=== PATIENT | male | born 1935 | race Caucasian/White ===

== ENCOUNTER → 2016-04-26 | Outpatient (CLI) | payer BC ==
[~2016-04-26] MED LIST: ATV/1 PO; HYZ/50125 PO; METO50TA17 PO
[2016-04-26 10:35] LABS: ALT/SGPT 57 U/L (12-78); BLOOD UREA NITROGEN 22 mg/dl (7-18); BUN/CREATININE RATIO 14.6 (10-20); CARBON DIOXIDE 28 mmol/L (21-32); CHLORIDE 95 mmol/L (98-107); GLUCOSE 98 mg/dl (70-99); POTASSIUM 3.4 mmol/L (3.5-5.1); SODIUM 135 mmol/L (136-145)
[2016-04-26 10:38] LABS: ALB/GLOB RATIO 1.1 (0.9-2); ALKALINE PHOSPHATASE 89 U/L (45-117); AST/SGOT 45 U/L (15-37)
== END | disposition home or self-care (01) ==
LOC: C.LAB1850 09:16
PROVIDERS: ATTEND Internal Medicine
DX: R79.89 Other specified abnormal findings of blood chemistry (principal)

== ENCOUNTER → 2016-04-29 | Outpatient (CLI) | payer BC ==
[2016-04-29 14:45] LABS: BASO % 0.5 %; BASO ABS # 0.03 K/uL (0-0.2); COMPLETE YES; EOS % 2.2 %; IG% 0.3 %; LYMPH % 13.8 %; LYMPH ABS # 0.82 K/uL (1.2-3.4); MEAN CELL VOLUME 94.1 fL (80-100); MEAN CORPUSCULAR HEMOGLOBIN 34.9 pg (25-34); MEAN CORPUSCULAR HGB CONC 37.1 g/dl (32-36); MEAN PLATELET VOLUME 9.8 fL (7.4-10.4); MONO % 16.3 %; NEUT % 66.9 %; PLATELET COUNT 182 K/uL (130-400); RED BLOOD COUNT 4.04 M/uL (4.7-6.1); WHITE BLOOD COUNT 5.94 K/uL (4.8-10.8)
[2016-04-29 14:55] LABS: ALT/SGPT 76 U/L (12-78); AST/SGOT 53 U/L (15-37); BLOOD UREA NITROGEN 31 mg/dl (7-18); CALCIUM 8.9 mg/dl (8.5-10.1); CARBON DIOXIDE 26 mmol/L (21-32); CHLORIDE 92 mmol/L (98-107); GLUCOSE 85 mg/dl (70-99); POTASSIUM 3.4 mmol/L (3.5-5.1); SODIUM 134 mmol/L (136-145)
[2016-04-29 14:58] LABS: ALB/GLOB RATIO 1.2 (0.9-2); ALKALINE PHOSPHATASE 87 U/L (45-117)
== END | disposition home or self-care (01) ==
LOC: C.LAB1850 12:24
PROVIDERS: ATTEND Internal Medicine
DX: R79.89 Other specified abnormal findings of blood chemistry (principal)

== ENCOUNTER 2016-04-30 09:19 | Inpatient (IN) | payer BC, OTHER ==
[~2016-04-30] VITALS: Ht 177.8 cm; Wt 74.0 kg
[2016-04-30] MEDS ORDERED: HYZ/50125 PO (10:02)
[2016-04-30] MEDS ORDERED: METO50TA17 PO ×2 (10:02)
[2016-04-30] MEDS ORDERED: ATV/1 PO (10:02)
[2016-04-30] MEDS ORDERED: SODIUM CHLORIDE 0.9% 1000ML 1,000 ML IV STA (10:08)
[2016-04-30] MEDS ORDERED: SODIUM CHLORIDE 0.9% 1000ML 500 ML IV STA (10:08)
--- NOTE | 2016-04-30 10:24 | EMERGENCY ROOM VISIT NOTE ---
History Report prepared by Katlin: Aminah Valdez Under the Supervision of: Dr. Blade Portillo M.D. First contact with patient: 10:02 Chief Complaint: GI ASSESSMENT Stated Complaint: ACUTE KIDNEY DISEASE, LIVER PROBLEMS Nursing Triage Summary: "I was sent by my pcp for acute kidney disease. I had blood work done this week. have back pain over the past few days. I am also having liver problems. I have had trouble eating for the past 2 weeks now" History of Present Illness The patient is an 80 year old male who presents to the Emergency Room with complaints of persistent GI problems that began two weeks ago. He currently rates his discomfort as a 6/10 in severity. The patient states that two weeks ago he had a "digestive collapse." He states that he ate fish and drank wine one evening and after that he began feeling ill. The patient states that he was unsure if he had food poisoning or something else. He states that his ate the fish as well, but had no problems. The patient states that for the first 24 hours of his illness, he experienced significant abdominal pain. He states that he could not eat anything solid for several days. The patient states that he additionally had diarrhea, but states that the diarrhea subsided since he could not eat solid foods. He states that one week ago he began eating canned peaches, and states that yesterday he was able to successfully eat yogurt. The patient states that he had blood work ordered by his PCP which revealed an elevation in his Creatinine and Bilirubin. He states that he was instructed to come to the emergency department for further evaluation by his PCP due to these findings. The patient states that he feels thirsty today. He denies any fever, chills, or change in the color of his urine. Source of History: patient Onset: two weeks ago Position: other (global) Symptom Intensity: 6/10 Quality: other (GI problems) Timing: other (persistent) Associated Symptoms: + diarrhea, No chills, No fevers, No urinary symptoms Note: Associated Symptoms: unable to eat solid foods. Review of Systems See HPI for pertinent positives & negatives. A total of 10 systems reviewed and were otherwise negative. Past Medical & Surgical Medical Problems: (1) FRANK (acute kidney injury) (2) Bronchitis (3) Hypertension (4) Pneumonia Surgical Problems: (1) History of back surgery Family History Kidney disease Kidney stones Social History Smoking Status: Never Smoker Smokeless Tobacco Use: No Alcohol Use: occasionally Marital Status: Housing Status: lives with significant other Occupation Status: retired Current/Historical Medications Scheduled Hctz/Losartan (Hyzaar 12.5MG/50MG), 1 TAB PO BID Lorazepam (Ativan), 2 MG PO HS Metoprolol Tartrate (Metoprolol Tartrate), 50 MG PO QAM Metoprolol Tartrate (Metoprolol Tartrate), 25 MG PO QPM Allergies Coded Allergies: No Known Allergies (Unverified , 04/30/16) Physical Exam Vital Signs Date Time Temp Pulse Resp B/P Pulse Ox O2 Delivery O2 Flow Rate FiO2 04/30/16 12:01 55 18 122/58 99 Room Air 04/30/16 10:47 51 16 147/47 98 Room Air 04/30/16 09:39 50 04/30/16 09:36 100 Room Air 04/30/16 09:23 36.4 51 18 141/71 99 Physical Exam GENERAL: Patient is in no acute distress. HEENT: No acute trauma, normocephalic atraumatic, mucous membranes dry, no nasal congestion, no scleral icterus. NECK: No stridor, no adenopathy, no meningismus, trachea is midline. LUNGS: Clear to auscultation bilaterally, no wheeze, no rhonchi, breath sounds equal. HEART: Without murmurs gallops or rubs, regular rate and rhythm. ABDOMEN: Soft, nontender, bowel sounds positive, no hernias, no peritonitis. EXTREMITIES: No cyanosis or edema, full range of motion of all the joints without pain or difficulty, no signs for acute trauma. NEUROLOGIC: Oriented x 3, no acute motor or sensory deficits, no focal weakness. SKIN: No rash, no jaundice, no diaphoresis. Medical Decision & Procedures ER Provider Diagnostic Interpretation: CT results as stated below per my review and radiologist interpretation: ABDOMEN AND PELVIS CT WITHOUT CONTRAST CT DOSE: 293.72 mGy.cm HISTORY: Generalized abdominal pain. TECHNIQUE: Multiaxial CT images of the abdomen and pelvis were performed without contrast. COMPARISON STUDY: None. FINDINGS: The lung bases are clear. Fatty changes within the liver. The unenhanced gallbladder, pancreas, spleen, and adrenal glands are unremarkable. There is a 6 mm stone within the lower pole of the right kidney. No hydronephrosis. Normal left kidney. The bladder is unremarkable. Suboptimal evaluation for bowel pathology due to the lack of intravenous and oral contrast. However, there is no definite bowel wall thickening or obstruction. Normal appendix. Colonic diverticulosis. IMPRESSION: 1. No definite bowel wall thickening or obstruction. 2. Colonic diverticulosis. 3. Normal appendix. 4. Right-sided nephrolithiasis. No hydronephrosis. 5. Hepatic steatosis. Electronically signed by: Giacomo Coles M.D. 04/30/2016 10:49 AM Dictated Date/Time: 04/30/2016 10:43 AM Laboratory Results 04/30/16 09:40 Red Blood Count 4.11, Mean Corpuscular Volume 92.7, Mean Corpuscular Hemoglobin 35.0, Mean Corpuscular Hemoglobin Concent 37.8, Mean Platelet Volume 9.6, Neutrophils (%) (Auto) 64.6, Lymphocytes (%) (Auto) 17.1, Monocytes (%) (Auto) 14.7, Eosinophils (%) (Auto) 2.7, Basophils (%) (Auto) 0.7, Neutrophils # (Auto ) 3.77, Lymphocytes # (Auto) 1.00, Monocytes # (Auto) 0.86, Eosinophils # (Auto ) 0.16, Basophils # (Auto) 0.04 Test 04/30/16 09:40 04/30/16 12:15 White Blood Count 5.84 K/uL (4.8-10.8) Red Blood Count 4.11 M/uL (4.7-6.1) Hemoglobin 14.4 g/dL (14.0-18.0) Hematocrit 38.1 % (42-52) Mean Corpuscular Volume 92.7 fL (80-100) Mean Corpuscular Hemoglobin 35.0 pg (25-34) Mean Corpuscular Hemoglobin Concent 37.8 g/dl (32-36) Platelet Count 173 K/uL (130-400) Mean Platelet Volume 9.6 fL (7.4-10.4) Neutrophils (%) (Auto) 64.6 % Lymphocytes (%) (Auto) 17.1 % Monocytes (%) (Auto) 14.7 % Eosinophils (%) (Auto) 2.7 % Basophils (%) (Auto) 0.7 % Neutrophils # (Auto) 3.77 K/uL (1.4-6.5) Lymphocytes # (Auto) 1.00 K/uL (1.2-3.4) Monocytes # (Auto) 0.86 K/uL (0.11-0.59) Eosinophils # (Auto) 0.16 K/uL (0-0.5) Basophils # (Auto) 0.04 K/uL (0-0.2) RDW Standard Deviation 51.7 fL (36.4-46.3) RDW Coefficient of Variation 15.8 % (11.5-14.5) Immature Granulocyte % (Auto) 0.2 % Immature Granulocyte # (Auto) 0.01 K/uL (0.00-0.02) Red Blood Cell Morphology Unremarkable Prothrombin Time 13.1 SECONDS (9.0-12.0) Prothromb Time International Ratio 1.2 (0.9-1.1) Activated Partial Thromboplast Time 30.7 SECONDS (21.0-31.0) Partial Thromboplastin Ratio 1.2 Magnesium Level 1.6 mg/dl (1.8-2.4) Total Bilirubin 2.2 mg/dl (0.2-1) Direct Bilirubin 0.7 mg/dl (0-0.2) Aspartate Amino Transf (AST/SGOT) 68 U/L (15-37) Alanine Aminotransferase (ALT/SGPT) 82 U/L (12-78) Alkaline Phosphatase 97 U/L (45-117) Troponin I < 0.015 ng/ml (0-0.045) Total Protein 7.6 gm/dl (6.4-8.2) Albumin 4.0 gm/dl (3.4-5.0) Lipase 200 U/L (73-393) Thyroid Stimulating Hormone (TSH) 2.490 uIu/ml (0.300-4.500) Urine Color YELLOW Urine Appearance CLOUDY (CLEAR) Urine pH 5.0 (4.5-7.5) Urine Specific [place] 1.000 (1.000-1.030) Urine Protein NEG (NEG) Urine Glucose (UA) NEG (NEG) Urine Ketones 1+ (NEG) Urine Occult Blood NEG (NEG) Urine Nitrite NEG (NEG) Urine Bilirubin NEG (NEG) Urine Urobilinogen NEG (NEG) Urine Leukocyte Esterase NEG (NEG) Urine WBC (Auto) 1-5 /hpf (0-5) Urine RBC (Auto) 0-4 /hpf (0-4) Urine Hyaline Casts (Auto) 1-5 /lpf (0-5) Urine Epithelial Cells (Auto) 5-10 /lpf (0-5) Urine Bacteria (Auto) NEG (NEG) Laboratory results reviewed by me. Medications Administered Medications (Trade) Dose Ordered Sig/Courtney Route Start Time Stop Time Status Last Admin Dose Admin Sodium Chloride 500 ml @ 999 mls/hr Q31M STAT IV 04/30/16 10:08 04/30/16 10:38 DC 04/30/16 11:00 999 MLS/HR Sodium Chloride (Nss 1000ml) 1,000 ml @ 200 mls/hr Q5H STAT IV 04/30/16 10:08 04/30/16 13:37 DC 04/30/16 11:30 200 MLS/HR Magnesium Sulfate (Magnesium Sulfate) 2 gm NOW STAT IV 04/30/16 10:39 04/30/16 10:40 DC 04/30/16 11:09 2 GM ECG Indication: other (abnormal labs) Rate (beats per minute): 55 Rhythm: sinus bradycardia Findings: PAC, T-wave inversion (Lateral), no acute ischemic change ED Course 1006: The patient was evaluated in room B11B. A complete history and physical exam was performed. 1008: Ordered Sodium Chloride 1000 ml @ 200 mls/hr IV, Sodium Chloride 500 ml @ 999 mls/hr IV. 1039: Ordered Magnesium Sulfate 2 gm IV. 1212: I reevaluated the patient and he is resting comfortably. I discussed the exam findings with him and I discussed the treatment plan. He verbalized complete understanding and agreement. He will be evaluated for further treatment. 1215: I discussed the patients case [facility] He is going to evaluate the patient for further treatment. Medical Decision The patient is an 80 year old male who presents to the ED with complaints of GI problems. Differential diagnoses considered include acute renal failure, dehydration, electrolyte imbalance, anemia, infection, bowel obstruction, hepatic failure. There is no leukocytosis. No concerning anemia. Renal panel testing shows acute renal failure. Magnesium is low at 1.6. A hepatitis is present. No coagulopathy by our testing. EKG shows a sinus rhythm, no acute ischemia. Cardiac enzyme testing times one is not consistent with acute cardiac injury. Abdominal and pelvis CT shows some chronic findings, no bowel obstruction or acute surgical process. Urinalysis does not show infection. There is no pancreatitis. The patient appears to have acute renal failure, hepatitis and hypomagnesemia. He received IV saline and IV magnesium. Admission/observation is warranted. I spoke to the patient and case management. The on-call hospitalist was consulted. Consults Time Called: 1207 Consulting Physician: TONY Smith Returned Call: 1215 I discussed the patients case with TONY Smith. He is going to evaluate the patient for further treatment. Impression Primary Impression: Acute renal failure Additional Impressions: Hepatitis Dehydration Hypomagnesemia Scribe Attestation The scribe's documentation has been prepared under my direction and personally reviewed by me in its entirety. I confirm that the note above accurately reflects all work, treatment, procedures, and medical decision making performed by me. Departure Information Dispostion Being Evaluated By Hospitalist Referrals RV. Ivan MD (PCP) Problem Qualifiers
[2016-04-30 10:32] LABS: INR 1.2 (0.9-1.1); PARTIAL THROMBOPLASTIN RATIO 1.2; PROTHROMBIN TIME (PATIENT) 13.1 SECONDS (9.0-12.0)
[2016-04-30 10:36] LABS: ALT/SGPT 82 U/L (12-78); BLOOD UREA NITROGEN 35 mg/dl (7-18); BUN/CREATININE RATIO 15.8 (10-20); CARBON DIOXIDE 23 mmol/L (21-32); CHLORIDE 90 mmol/L (98-107); GLUCOSE 87 mg/dl (70-99); MAGNESIUM 1.6 mg/dl (1.8-2.4); POTASSIUM 3.2 mmol/L (3.5-5.1); SODIUM 132 mmol/L (136-145)
[2016-04-30] MEDS ORDERED: MAGNESIUM SULFATE 1GM / D5W 1 GM BAG IV STA (10:39)
[2016-04-30 10:47] LABS: ALKALINE PHOSPHATASE 97 U/L (45-117); AST/SGOT 68 U/L (15-37)
--- NOTE | 2016-04-30 10:50 | DIAGNOSTIC IMAGING REPORT ---
ABDOMEN AND PELVIS CT WITHOUT CONTRAST CT DOSE: 293.72 mGy.cm HISTORY: Generalized abdominal pain. TECHNIQUE: Multiaxial CT images of the abdomen and pelvis were performed without contrast. COMPARISON STUDY: None. FINDINGS: The lung bases are clear. Fatty changes within the liver. The unenhanced gallbladder, pancreas, spleen, and adrenal glands are unremarkable. There is a 6 mm stone within the lower pole of the right kidney. No hydronephrosis. Normal left kidney. The bladder is unremarkable. Suboptimal evaluation for bowel pathology due to the lack of intravenous and oral contrast. However, there is no definite bowel wall thickening or obstruction. Normal appendix. Colonic diverticulosis. IMPRESSION: 1. No definite bowel wall thickening or obstruction. 2. Colonic diverticulosis. 3. Normal appendix. 4. Right-sided nephrolithiasis. No hydronephrosis. 5. Hepatic steatosis. Electronically signed by: Giacomo Coles M.D. 04/30/2016 10:49 AM Dictated Date/Time: 04/30/2016 10:43 AM
[2016-04-30 12:04] LABS: BASO % 0.7 %; BASO ABS # 0.04 K/uL (0-0.2); COMPLETE YES; EOS % 2.7 %; HEMATOCRIT 38.1 % (42-52); IG% 0.2 %; LYMPH % 17.1 %; MEAN CELL VOLUME 92.7 fL (80-100); MEAN CORPUSCULAR HGB CONC 37.8 g/dl (32-36); MEAN PLATELET VOLUME 9.6 fL (7.4-10.4); MONO % 14.7 %; NEUT % 64.6 %; PLATELET COUNT 173 K/uL (130-400); RED BLOOD COUNT 4.11 M/uL (4.7-6.1); WHITE BLOOD COUNT 5.84 K/uL (4.8-10.8)
[2016-04-30] MEDS ORDERED: POTASSIUM CHLR 20 MEQ / WTR 20 MEQ in PREMIXED WATER 100 ML IV STA (12:13)
[2016-04-30] MEDS ORDERED: LORAZEPAM 2 MG/ML 1 ML VIAL IV PRN (12:30)
[2016-04-30] MEDS ORDERED: ALUMINUM/MAGNESIUM/SIMETH (MAALOX MAX) 30 ML UDC PO PRN (12:30)
[2016-04-30] MEDS ORDERED: ONDANSETRON INJ 2 MG/ML 2 ML VIAL IV PRN (12:30)
[2016-04-30] MEDS ORDERED: ACETAMINOPHEN 325 MG TAB PO PRN (12:30)
[2016-04-30 12:32] LABS: URINE APPEARANCE CLOUDY (CLEAR); URINE BILIRUBIN NEG (NEG); URINE COLOR YELLOW; URINE NITRITE NEG (NEG); UROBILINOGEN NEG (NEG); ZZUR CULT IF INDIC CLEAN CATCH NO
[2016-04-30 12:38] LABS: MANUAL MICROSCOPIC REQUIRED? NO; REVIEW REQ? NO
--- NOTE | 2016-04-30 12:57 | History and Physical ---
History & Physical Date & Time of Service: Apr 30, 2016 at 12:31 Chief Complaint: Acute Kidney Disease, Liver Problems Primary Care Physician: RV. Ivan MD History of Present Illness Source: patient 80 y/o M w/Hx HTN and alcoholic liver disease. Pt has had diarrhea for 2 weeks beginning in march. He states that he has gas, distention and diarrhea every time he eats. He has been avoiding PO intake as a result. He has been following with his PC who obtained labs today and noted that his creatinine was elevated at 2.2. The pt was sent to the hospital primarily for this reason. He denies nausea, vomiting, light head, SOB, fevers or dysuria. He admits to regular excessive alcohol intake but has not had a drink in over 10 days due to his ongoing symptoms. Initial labs reveal FRANK, hypoK, hypoMg. 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 - admits to excessive alcohol intake but has not had a drink for > 10 days Smoking Status: Never Smoker Smokeless Tobacco Use: No Marital Status: Occupational Status: retired Multi-Drug Resistant Organisms History of MDRO: No Allergies Coded Allergies: No Known Allergies (Unverified , 04/30/16) Home Medications Scheduled Hctz/Losartan (Hyzaar 12.5MG/50MG), 1 TAB PO BID Lorazepam (Ativan), 2 MG PO HS Metoprolol Tartrate (Metoprolol Tartrate), 50 MG PO QAM Metoprolol Tartrate (Metoprolol Tartrate), 25 MG PO QPM Review of Systems Constitutional: + weakness, No chills, No fever, No sweats Eyes: No eye pain, No worsening of vision ENT: No hearing loss, No nasal symptoms, No unusual epistaxis Respiratory: No cough, No sputum, No wheezing Cardiovascular: No PND, No chest pain, No orthopnea Abdomen: + diarrhea, + problem reported (bloating and distention with any PO intake), No nausea, No pain, No vomiting Musculoskeletal: No joint pain, No muscle pain Genitourinary - Male: No dysuria, No hematuria, No urinary frequency Neurologic: No memory loss, No paralysis, No weakness Psychiatric: No anhedonism, No depression symptoms Endocrine: No fatigue Hematologic / Lymphatic: No abnormal bleeding/bruising, No clotting problems Integumentary: No rash Allergic / Immunologic: No environmental allergies, No pet sensitivities, No seasonal allergies Physical Exam Vital Signs Date Time Temp Pulse Resp B/P Pulse Ox O2 Delivery O2 Flow Rate FiO2 04/30/16 12:01 55 18 122/58 99 Room Air 04/30/16 10:47 51 16 147/47 98 Room Air 04/30/16 09:39 50 04/30/16 09:36 100 Room Air 04/30/16 09:23 36.4 51 18 141/71 99 General Appearance: WD/WN, no apparent distress Head: normocephalic, atraumatic, + pertinent finding (Facial erythema) Eyes: normal inspection, PERRL, EOMI ENT: normal ENT inspection, hearing grossly normal, TMs normal, pharynx normal Neck: supple, no JVD Respiratory/Chest: chest non-tender, lungs clear, normal breath sounds, no respiratory distress, no accessory muscle use Cardiovascular: regular rate, rhythm, no edema, no gallop, no JVD, no murmur, normal peripheral pulses Abdomen/GI: normal bowel sounds, non tender, soft Back: normal inspection, no CVA tenderness Extremities/Musculoskelatal: normal inspection, no calf tenderness, normal capillary refill, no pedal edema, normal range of motion Neurologic/Psych: supervisor tubing II-XII nml as tested, no motor/sensory deficits, alert, normal mood/affect, normal reflexes, oriented x 3 Skin: warm/dry, + pertinent finding (facial erythema) Diagnostics Laboratory Results Results Past 24 Hours Test 04/30/16 09:40 04/30/16 12:15 Range/Units White Blood Count 5.84 4.8-10.8 K/uL Red Blood Count 4.11 4.7-6.1 M/uL Hemoglobin 14.4 14.0-18.0 g/dL Hematocrit 38.1 42-52 % Mean Corpuscular Volume 92.7 80-100 fL Mean Corpuscular Hemoglobin 35.0 25-34 pg Mean Corpuscular Hemoglobin Concent 37.8 32-36 g/dl Platelet Count 173 130-400 K/uL Mean Platelet Volume 9.6 7.4-10.4 fL Neutrophils (%) (Auto) 64.6 % Lymphocytes (%) (Auto) 17.1 % Monocytes (%) (Auto) 14.7 % Eosinophils (%) (Auto) 2.7 % Basophils (%) (Auto) 0.7 % Neutrophils # (Auto) 3.77 1.4-6.5 K/uL Lymphocytes # (Auto) 1.00 1.2-3.4 K/uL Monocytes # (Auto) 0.86 0.11-0.59 K/uL Eosinophils # (Auto) 0.16 0-0.5 K/uL Basophils # (Auto) 0.04 0-0.2 K/uL RDW Standard Deviation 51.7 36.4-46.3 fL RDW Coefficient of Variation 15.8 11.5-14.5 % Immature Granulocyte % (Auto) 0.2 % Immature Granulocyte # (Auto) 0.01 0.00-0.02 K/uL Red Blood Cell Morphology Unremarkable Prothrombin Time 13.1 9.0-12.0 SECONDS Prothromb Time International Ratio 1.2 0.9-1.1 Activated Partial Thromboplast Time 30.7 21.0-31.0 SECONDS Partial Thromboplastin Ratio 1.2 Sodium Level 132 136-145 mmol/L Potassium Level 3.2 3.5-5.1 mmol/L Chloride Level 90 98-107 mmol/L Carbon Dioxide Level 23 21-32 mmol/L Anion Gap 19.0 3-11 mmol/L Blood Urea Nitrogen 35 7-18 mg/dl Creatinine 2.20 0.60-1.40 mg/dl Est Creatinine Clear Calc Drug Dose 27.7 ml/min Estimated GFR () 31.6 Estimated GFR (Non- 27.3 BUN/Creatinine Ratio 15.8 10-20 Random Glucose 87 70-99 mg/dl Calcium Level 9.0 8.5-10.1 mg/dl Magnesium Level 1.6 1.8-2.4 mg/dl Total Bilirubin 2.2 0.2-1 mg/dl Direct Bilirubin 0.7 0-0.2 mg/dl Aspartate Amino Transf (AST/SGOT) 68 15-37 U/L Alanine Aminotransferase (ALT/SGPT) 82 12-78 U/L Alkaline Phosphatase 97 45-117 U/L Troponin I < 0.015 0-0.045 ng/ml Total Protein 7.6 6.4-8.2 gm/dl Albumin 4.0 3.4-5.0 gm/dl Lipase 200 73-393 U/L Thyroid Stimulating Hormone (TSH) 2.490 0.300-4.500 uIu/ml Diagnostic Radiology IMPRESSION: 1. No definite bowel wall thickening or obstruction. 2. Colonic diverticulosis. 3. Normal appendix. 4. Right-sided nephrolithiasis. No hydronephrosis. 5. Hepatic steatosis. Impression Assessment and Plan 80 y/o M w/Hx HTN and alcoholic liver disease. Pt has had diarrhea for 2 weeks beginning in march. He states that he has gas, distention and diarrhea every time he eats. He has been avoiding PO intake as a result. He has been following with his PC who obtained labs today and noted that his creatinine was elevated at 2.2. The pt was sent to the hospital primarily for this reason. He denies nausea, vomiting, light head, SOB, fevers or dysuria. He admits to regular excessive alcohol intake but has not had a drink in over 10 days due to his ongoing symptoms. Initial labs reveal FRANK, hypoK, hypoMg. 1) Persistent diarrhea - we will obtain a stool culture and C diff studies - a CT abdomen was unremarkable however the study was limited due to lack of contrast so that a repeat should be considered if symptoms persist. We will request a GI consult. Pt states he failed OTC treatments such as Imodium however Simethicone does provide some relief and will be provided. 2) FRANK - IVF - repeat labs AM - FeNa and renal consult if no improvement. 3) LFTs elevated - has some mild chronic elevation however numbers appear to be rising. CT states hepatic steatosis and pt admits to excessive ETOH intake. Will repeat labs AM and GI consulted as mentioned. 4) ETOH abuse - denies a history of DTs and has not had a drink in over 10 days - we will provide a daily banana bag and PRN Ativan. 5) HypoK HpoMg - replaced - repeat labs AM 6) HTN - cont Metoprolol FUll code - Heparin prophylaxis pending coags Total time for this admit including review of labs, imaging, meds, previous record - discussion with ER attending and pt - 36 min Level of Care Med/Surg Resuscitation Status FULL RESUSCITATION VTE Prophylaxis VTE Risk Assessment Done? Y/N: Yes Risk Level: Moderate Given or contraindicated: Unfractionated heparin SQ
[2016-04-30 13:03] VITALS: O2SAT 99; Ht 177.8 cm; Wt 74.0 kg
[2016-04-30 13:33] VITALS: BP 167/96; PULSE 48; TEMP 36.3; O2SAT 100
[2016-04-30] MEDS ORDERED: LORAZEPAM INJ 0.5 MG in SYRINGE 0.75 ML IV PRN (14:00)
[2016-04-30] MEDS: HEPARIN SOD 5000 UNIT/0.5 ML CARP SQ SCH ×2 (14:00→20:26)
[2016-04-30] MEDS ORDERED: MULTI-VITAMIN INFUSION INJ 10 ML, THIAMINE HCL INJ 100 MG, FoLIC ACID INJ 1 MG in SODIU... IV SCH (14:00)
[2016-04-30 14:33] LABS: BUN/CREATININE RATIO 17.5 (10-20); CALCIUM 8.6 mg/dl (8.5-10.1); CREATININE 1.9 mg/dl (0.60-1.40); PHOSPHORUS 2.9 mg/dl (2.5-4.9); POTASSIUM 3.1 mmol/L (3.5-5.1)
[2016-04-30 16:25] VITALS: O2SAT 100
[2016-04-30] MEDS: POTASSIUM CHLR 10MEQ / WTR IV SCH ×2 (16:27→18:00)
--- NOTE | 2016-04-30 17:48 | GASTROINTESTINAL CONSULTATION ---
DATE OF CONSULTATION: 04/30/2016 REQUESTING PROVIDER: Dr. Garfield Xiao. REASON FOR CONSULTATION: Diarrhea, abnormal liver tests. HISTORY OF PRESENT ILLNESS: Mr. Arriaga is an 80-year-old white male who reports the development of total body abdominal discomfort that was followed by diarrhea since on 04/19/2016. This was not specifically related to any meal. His had eaten similar things (fish without any symptoms). The diarrhea persisted. This was nonbloody, did not awaken the patient from sleep and except for the last couple of weeks where he has lost weight because of the diarrhea and some food avoidance, his weight had been stable up until that time. The patient does drink approximately 1 bottle of wine daily. His chronic history includes hypertension, bronchitis, prior pneumonia, had a history of back surgery but no abdominal or gastrointestinal surgeries are reported by the patient. 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 He does drink alcohol on a regular basis but nothing for the past 10 days. He is , retired. ALLERGIES: He has no known drug allergies. HOME MEDICATIONS: Include Lopressor, lorazepam, HCTZ and losartan. REVIEW OF SYSTEMS: Otherwise noncontributory based on 14-point exam except for noted above. The patient denies odynophagia, dysphagia, nausea, vomiting, hematemesis, coffee-ground emesis, melena or bright red blood per rectum. There is no dysuria or hematuria. The patient reports no rashes. He additionally described no recent travel, ingestion of uncertain water supply and has not been out in the [place] or camping or hunting or fishing. FAMILY HISTORY: Significant for kidney disease. He may have had an aunt with colorectal cancer but there are no first-degree relatives with colorectal cancer, inflammatory bowel disease or polyps. PHYSICAL EXAMINATION: Today: GENERAL: Shows a well-developed, well-nourished male in no acute distress. HEENT: His sclerae are anicteric. Conjunctivae are moist. Oral mucosa is moist. NECK: There is no cervical or supraclavicular adenopathy. I do not appreciate thyromegaly. HEART: Normal S1, S2. LUNGS: Clear to auscultation without rales, rhonchi or wheezes. ABDOMEN: Soft, flat, nontender, nondistended with normal active bowel sounds, no rebound or guarding. I do not appreciate any masses. There is no evidence of ascites or shifting dullness. EXTREMITIES: Without clubbing, cyanosis or edema. SKIN: Intact without rashes. There are no lateralizing neurologic symptoms. VITAL SIGNS: On admission, temperature 36.4, heart rate 51, respirations 18, blood pressure 141/71, pulse ox is 99% on room air. LABORATORY STUDIES: White blood cell count 5.8, hemoglobin 14.4, MCV is 93, platelets 173,000. INR 1.2. PTT of 30.7. The patient's creatinine on admission was 2.2. This has fallen to 1.9 a short time ago. BUN went from 35-30 on this admission. The patient does have a mildly elevated gap with a bicarb of 23. His potassium is also low at 3.2. His liver function tests show a total bilirubin of 2.2 but a direct of 0.7. AST is 68 and ALT is 82. The alkaline phosphatase however is normal, albumin is normal at 4.0, lipase 200. TSH 2.49 and a total protein of 7.6. IMAGING DATA: The patient had an imaging that showed no abnormal bowel wall thickening, normal appearing appendix. He has right-sided kidney stones without hydronephrosis. There is a fatty appearance to the liver with colonic diverticulosis noted. IMPRESSION: The patient with an approximate 2-week history of diarrhea, some change in appetite, mild weight loss. This was nonbloody stools and not nocturnal in nature. There was a pattern of diffuse body aches on the early with these symptoms, however this has resolved. The patient does not report any rigors or known fevers at the presentation or throughout the course of this current symptom. PLAN: The patient is to continue to receive IV fluids and would strive to correct potassium to the normal range. Regarding his liver function tests, a high proportion of the bilirubin is indirect in nature and the patient did comment that in the past, his bilirubin may have been elevated, although his other liver tests were normal. It is unclear if the liver tests as described above represent a fatty appearance and although his INR is slightly elevated, his platelet count is satisfactory and I would not expect there to be a significant degree of liver decompensation. I would consider viral markers including hepatitis B surface antigen, surface antibody, hepatitis C antibody and hepatitis A IgM, although I believe this is less likely. In addition, SHANDA, smooth muscle antibody and ferritin level would also be reasonable. His imaging studies report that the liver has a fatty appearance but do not suggest a distorted liver that would indicate a concern for cirrhosis. I believe it would be helpful to repeat these liver tests over the next several days to see if they are resolving. In addition, renal function should be monitored in response to the fluids. The patient denied any NSAIDs recently that would be a source of liver test elevations or the renal dysfunction. I did offer the patient colonoscopy for the diarrhea in order to exclude inflammation microscopic or macroscopic. However, the patient would like to hold off for at least a few days or weeks until the matters of his kidney function and liver tests are reassessed. This is certainly reasonable. If not obtained, consider stool studies for C. diff, Giardia, sed rate, fecal white blood cells and CRP. We will follow with you and if the patient wishes to pursue the colonoscopy during this hospitalization, we will make arrangements at his convenience. The patient had a colonoscopy approximately [address] Gaffney and believes that there may have been polyps, but he is unclear. Dr. Pedersen did a colonoscopy subsequently, although this by the patient's recollection has not been for several years. I do not see a colonoscopy report currently in the EMR. Thank you for allowing me to participate in this patient's care. I did caution him that it would be helpful to avoid the use of NSAIDs and high dose of Tylenol and to reduce or eliminate his alcohol use if possible, particularly if there is some aspect of acute or chronic injury to the liver. All questions answered.
[2016-04-30] MEDS ORDERED: METOPROLOL TARTRATE 25 MG TAB PO SCH (21:00)
[2016-04-30] MEDS ORDERED: D5NSS + 20MEQ KCL 1,000 ML IV SCH (21:00)
[2016-04-30] MEDS ORDERED: LORAZEPAM 1 MG TAB PO SCH (21:00)
[2016-04-30 21:49] VITALS: BP 155/82; PULSE 52; TEMP 36.3; O2SAT 100
[2016-04-30 23:30] VITALS: BP 181/76; PULSE 54; TEMP 36.4; O2SAT 95
[2016-05-01] MEDS: HEPARIN SOD 5000 UNIT/0.5 ML CARP SQ SCH (05:34)
[2016-05-01 07:07] LABS: MAGNESIUM 2.1 mg/dl (1.8-2.4)
[2016-05-01 07:36] VITALS: BP 166/74; PULSE 55; TEMP 36.6; O2SAT 96
[2016-05-01] MEDS ORDERED: POTASSIUM CHLORIDE 10 MEQ TABCR PO ONE (08:00)
[2016-05-01] MEDS ORDERED: METOPROLOL TARTRATE 50 MG TAB PO SCH (08:00)
[2016-05-01] MEDS ORDERED: AMLODIPINE BESYLATE 5 MG TAB PO SCH (08:30)
[2016-05-01] MEDS ORDERED: LOSARTAN POTASSIUM 50 MG TAB PO SCH (09:00)
[2016-05-01 09:13] VITALS: BP 183/73; PULSE 56
[2016-05-01] MEDS ORDERED: HydrALAZINE HCL 20 MG/ML VIAL IV. PRN (09:30)
[2016-05-01 10:08] LABS: BUN/CREATININE RATIO 15.7 (10-20); CALCIUM 8.2 mg/dl (8.5-10.1); CREATININE 1.4 mg/dl (0.60-1.40); POTASSIUM 3.2 mmol/L (3.5-5.1)
--- NOTE | 2016-05-01 10:21 | Gastroenterology Progress Note ---
Progress Note Date of Service: May 01, 2016 Subjective Pt evaluation today including: conversation w/ patient, physical exam, chart review, lab review, review of studies, review of inpatient medication list CC f/u diarhea HPI No stools but is not eating much. States at home when ate would get gas causing discomfort and some diarrhea. Review of Systems Respiratory: No shortness of breath Cardiac: No chest pain Medications Current Inpatient Medications Medications (Trade) Dose Ordered Sig/Courtney Route Start Time Stop Time Status Last Admin Dose Admin Heparin Sodium (Porcine) (Heparin Sq 5000 Unit/0.5ml) 5,000 unit Q8 SQ 04/30/16 14:00 05/30/16 13:59 Acetaminophen (Tylenol Tab) 650 mg Q4H PRN PO 04/30/16 12:30 05/30/16 12:29 Al Hydrox/Mg Hydrox/Simethicone (Maalox Max Susp) 15 ml Q4H PRN PO 04/30/16 12:30 05/30/16 12:29 Ondansetron HCl (Zofran Inj) 4 mg Q6H PRN IV 04/30/16 12:30 05/30/16 12:29 Lorazepam (Ativan Tab) 2 mg HS PO 04/30/16 21:00 05/30/16 20:59 04/30/16 22:43 2 MG Metoprolol Tartrate (Lopressor Tab) 25 mg QPM PO 04/30/16 21:00 05/30/16 20:59 Metoprolol Tartrate (Lopressor Tab) 50 mg QAM PO 05/01/16 08:00 05/31/16 08:59 05/01/16 08:16 50 MG Lorazepam 0.5 mg 0.5 mg Q4H PRN IV 04/30/16 12:30 05/30/16 12:29 Lorazepam 0.5 mg/ Syringe 1 ml @ 1 mls/min Q4H PRN IV 04/30/16 14:00 05/30/16 13:59 Potassium Chloride/Dextrose/ Sod Cl 1,000 ml @ 125 mls/hr BY DURATION IV 05/01/16 02:30 05/31/16 02:29 05/01/16 03:15 125 MLS/HR Potassium Chloride/Dextrose/ Sod Cl 1,000 ml @ 125 mls/hr BY DURATION IV 05/01/16 02:30 05/31/16 02:29 Multivitamins/ Folic Acid/ Thiamine HCl/ Sodium Chloride (Mvi Infusion Inj/Folvite Inj/ Vitamin B-1 Inj/ Nss 1000ml) 1,011.2 ml @ 150 mls/ hr BY DURATION IV 05/01/16 02:30 05/31/16 02:29 Losartan Potassium (coZAAR TAB) 50 mg QAM PO 05/01/16 09:00 05/31/16 08:59 05/01/16 09:20 50 MG Hydralazine HCl (HydrALAZINE INJ) 10 mg Q4 PRN IV. 05/01/16 09:30 05/31/16 09:29 Objective Vital Signs Date Time Temp Pulse Resp B/P Pulse Ox O2 Delivery O2 Flow Rate FiO2 05/01/16 09:13 56 183/73 05/01/16 08:00 Room Air 05/01/16 07:36 36.6 55 18 166/74 96 Room Air 05/01/16 00:20 Room Air 04/30/16 23:30 36.4 54 18 181/76 95 Room Air 04/30/16 21:49 36.3 52 19 155/82 100 Room Air 04/30/16 16:25 100 Room Air 04/30/16 13:33 36.3 48 19 167/96 100 Room Air 04/30/16 13:18 52 16 158/70 98 04/30/16 13:13 52 04/30/16 13:03 99 Room Air 04/30/16 12:01 55 18 122/58 99 Room Air 04/30/16 10:47 51 16 147/47 98 Room Air Physical Exam General Appearance: WD/WN, no apparent distress Respiratory/Chest: lungs clear, no respiratory distress Abdomen: normal bowel sounds, non tender, soft, no organomegaly Neurologic/Psych: normal mood/affect, oriented x 3 Laboratory Results Last 24 Hours Test 04/30/16 12:15 04/30/16 13:50 05/01/16 06:05 05/01/16 09:18 Urine Color YELLOW Urine Appearance CLOUDY Urine pH 5.0 Urine Specific [place] 1.000 Urine Protein NEG Urine Glucose (UA) NEG Urine Ketones 1+ Urine Occult Blood NEG Urine Nitrite NEG Urine Bilirubin NEG Urine Urobilinogen NEG Urine Leukocyte Esterase NEG Urine WBC (Auto) 1-5 /hpf Urine RBC (Auto) 0-4 /hpf Urine Hyaline Casts (Auto) 1-5 /lpf Urine Epithelial Cells (Auto) 5-10 /lpf Urine Bacteria (Auto) NEG Sodium Level 135 mmol/L 141 mmol/L Potassium Level 3.1 mmol/L 3.2 mmol/L Chloride Level 95 mmol/L 104 mmol/L Carbon Dioxide Level 26 mmol/L 24 mmol/L Anion Gap 14.0 mmol/L 13.0 mmol/L Blood Urea Nitrogen 33 mg/dl 22 mg/dl Creatinine 1.90 mg/dl 1.40 mg/dl Est Creatinine Clear Calc Drug Dose 32.0 ml/min 43.5 ml/min Estimated GFR () 37.7 54.6 Estimated GFR (Non- 32.6 47.1 BUN/Creatinine Ratio 17.5 15.7 Random Glucose 87 mg/dl 162 mg/dl Calcium Level 8.6 mg/dl 8.2 mg/dl Phosphorus Level 2.9 mg/dl Magnesium Level 2.1 mg/dl Total Bilirubin 1.6 mg/dl Direct Bilirubin 0.5 mg/dl Aspartate Amino Transf (AST/SGOT) 43 U/L Alanine Aminotransferase (ALT/SGPT) 63 U/L Alkaline Phosphatase 68 U/L Total Protein 5.6 gm/dl Albumin 3.0 gm/dl Assessment and Plan Diarrhea--told patient he needs to eat so we can see if he is still having diarrhea elevated LFTS--improved. Told patient the his alchohol intake likely causing these elevated LFTS Fatty liver--likely from ETOH diverticulosis --no indication clinically or on CT of diverticulitis Discussed with patient that he is on IVF until demonstrates adequate po intake and remaining in hospital as controlled environment to see if he can eat adequate calories and do well is the point of this admission. Pt stating multiple reason why he should go home including not having no fat yogurt, no being able to move around because of IV to aid in digestion. Told him if he decides to go home he can negoatiate that with DR Izaguirre who I spoke with. However, if he goes home without demonstrating adequate po intake in the hospital I am not able to predict a favorable outcome. I also told home suspect initial process of diarrhea and body aches was viral and having ongoing viral process of has developed post infectious irritable bowel syndrome. Also mentioned if ongoing problems I recommend a colonscopy to rule out other etiologities in addition to IBS.
[2016-05-01] MEDS ORDERED: LORAZEPAM 0.5 MG TAB ONE (10:53)
[2016-05-01] MEDS ORDERED: NURSING VERBAL MED ORDER ONE (11:00)
[2016-05-01 11:25] VITALS: BP 179/74; PULSE 45; O2SAT 97
[2016-05-01 11:45] VITALS: BP 179/74; PULSE 45; TEMP 36.6; O2SAT 97
--- NOTE | 2016-05-01 12:04 | Discharge Instructions ---
Discharge Instructions Date of Service May 01, 2016. Admission Reason for Admission: FRANK Discharge Discharge Diagnosis / Problem: Acute kidney injury due to dehydration/ hypokalemia Discharge Goals Goal(s): Improve disease control Activity Recommendations Activity Limitations: resume your previous activity . Instructions / Follow-Up Instructions / Follow-Up PCP in 7-10 days. Current Hospital Diet Patient's current hospital diet: AHA Diet (Heart Healthy) Discharge Diet Recommended Diet: Regular Diet (I recommend avoiding dairy foods for 3-4 more weeks. ) Procedures Procedures Performed: NONE. Pending Studies Studies pending at discharge: no Laboratory Results Last 24 Hours Test 04/30/16 12:15 04/30/16 13:50 05/01/16 06:05 05/01/16 09:18 Urine Color YELLOW Urine Appearance CLOUDY Urine pH 5.0 Urine Specific [place] 1.000 Urine Protein NEG Urine Glucose (UA) NEG Urine Ketones 1+ Urine Occult Blood NEG Urine Nitrite NEG Urine Bilirubin NEG Urine Urobilinogen NEG Urine Leukocyte Esterase NEG Urine WBC (Auto) 1-5 /hpf Urine RBC (Auto) 0-4 /hpf Urine Hyaline Casts (Auto) 1-5 /lpf Urine Epithelial Cells (Auto) 5-10 /lpf Urine Bacteria (Auto) NEG Sodium Level 135 mmol/L 141 mmol/L Potassium Level 3.1 mmol/L 3.2 mmol/L Chloride Level 95 mmol/L 104 mmol/L Carbon Dioxide Level 26 mmol/L 24 mmol/L Anion Gap 14.0 mmol/L 13.0 mmol/L Blood Urea Nitrogen 33 mg/dl 22 mg/dl Creatinine 1.90 mg/dl 1.40 mg/dl Est Creatinine Clear Calc Drug Dose 32.0 ml/min 43.5 ml/min Estimated GFR () 37.7 54.6 Estimated GFR (Non- 32.6 47.1 BUN/Creatinine Ratio 17.5 15.7 Random Glucose 87 mg/dl 162 mg/dl Calcium Level 8.6 mg/dl 8.2 mg/dl Phosphorus Level 2.9 mg/dl Magnesium Level 2.1 mg/dl Total Bilirubin 1.6 mg/dl Direct Bilirubin 0.5 mg/dl Aspartate Amino Transf (AST/SGOT) 43 U/L Alanine Aminotransferase (ALT/SGPT) 63 U/L Alkaline Phosphatase 68 U/L Total Protein 5.6 gm/dl Albumin 3.0 gm/dl Medical Emergencies . Who to Call and When: Medical Emergencies: If at any time you feel your situation is an emergency, please call 911 immediately. . Non-Emergent Contact Non-Emergency issues call your: Primary Care Provider . . "Provider Documentation" section prepared by Selwyn Izaguirre. VTE Core Measure Inpt VTE Proph given/why not?: Unfractionated heparin SQ
--- NOTE | 2016-05-01 18:08 | Discharge Summary ---
Discharge Summary Date of Service May 01, 2016. 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 Procedures: None. Consultations: Gastroenterology, Dr. Conor Wallace. Medication Reconciliation Continued Medications: Hctz/Losartan (Hyzaar 12.5MG/50MG) Tab 1 TAB PO BID, TAB Lorazepam (Ativan) 1 Mg Tab 2 MG PO HS, TAB Metoprolol Tartrate (Metoprolol Tartrate) 50 Mg Tab 50 MG PO QAM Metoprolol Tartrate (Metoprolol Tartrate) 50 Mg Tab 25 MG PO QPM Discharge Exam A 10 system review was performed and all were negative. GEN: Awake, alert, and oriented x 3. Not in acute distress HEENT: Tm's intact, no inflammation, EOMI, PERRLA, MMM Neck: Soft, supple Lungs: CTA b/l, no r/r/w Heart: REG, nrl S1S2 without murmurs, rubs or gallops Abdomen: Soft, NT, ND, + BS EXT: No C/C/E NEURO: CN's II-XII grossly intact, non-focal Skin: warm, dry, no rashes PSYCH: pleasant, cooperative. Hospital Course The patient was admitted due to worsening renal function from baseline and for further evaluation of diarrhea ( which he describes as "gaseousness"). The day following admission, his creat had normalized and BUN improved greatly. His potassium was low and he refused to take oral supplementation as an inpatient. He was given 40meq to have at home to use at his next meal. His CT scan noted a fatty liver. GI was consulted and the patient declined having any further work up as in a colonoscopy. He decided that as his kidney function had improved, he wished to follow up as an outpatient for further work up. Total Time Spent: Greater than 30 minutes This includes examination of the patient, discharge planning, medication reconciliation, and communication with other providers. Discharge Instructions Please refer to the electronic Patient Visit Report (Discharge Instructions) for additional information. Follow-Up PCP in 7-10 days.
== END 2016-05-01 12:30 | disposition home or self-care (01) | DRG 684 ==
LOC: ENRESERVDT → ENRESERVTM → C.EDB 09:21 → C.4E 12:22
PROVIDERS: ADMIT Internal Medicine; ATTEND Hospitalist
DX: N17.9 Acute kidney failure, unspecified (principal); F10.10 Alcohol abuse, uncomplicated; E87.6 Hypokalemia; N18.2 Chronic kidney disease, stage 2 (mild); K57.90 Diverticulosis of intestine, part unspecified, without perforation or abscess without bleeding; E86.0 Dehydration; K70.0 Alcoholic fatty liver; R94.5 Abnormal results of liver function studies; R79.89 Other specified abnormal findings of blood chemistry; K70.9 Alcoholic liver disease, unspecified; R19.7 Diarrhea, unspecified; I12.9 Hypertensive chronic kidney disease with stage 1 through stage 4 chronic kidney disease, or unspecified chronic kidney disease; E83.42 Hypomagnesemia; Z79.899 Other long term (current) drug therapy

== ENCOUNTER → 2016-05-15 | Outpatient (CLI) | payer BC ==
[2016-05-15 09:44] LABS: BASO ABS # 0.05 K/uL (0-0.2); COMPLETE YES; EOS % 4.9 %; HEMATOCRIT 36.6 % (42-52); IG% 0.2 %; LYMPH % 20.1 %; LYMPH ABS # 0.99 K/uL (1.2-3.4); MEAN CELL VOLUME 98.7 fL (80-100); MEAN CORPUSCULAR HEMOGLOBIN 34.8 pg (25-34); MEAN CORPUSCULAR HGB CONC 35.2 g/dl (32-36); MONO % 8.7 %; NEUT % 65.1 %; PLATELET COUNT 137 K/uL (130-400); RED BLOOD COUNT 3.71 M/uL (4.7-6.1); WHITE BLOOD COUNT 4.93 K/uL (4.8-10.8)
[2016-05-15 10:05] LABS: ALT/SGPT 56 U/L (12-78); BLOOD UREA NITROGEN 25 mg/dl (7-18); BUN/CREATININE RATIO 22.8 (10-20); CALCIUM 8.7 mg/dl (8.5-10.1); CARBON DIOXIDE 32 mmol/L (21-32); CHLORIDE 102 mmol/L (98-107); GLUCOSE 140 mg/dl (70-99); POTASSIUM 3.4 mmol/L (3.5-5.1); SODIUM 141 mmol/L (136-145)
[2016-05-15 10:07] LABS: ALKALINE PHOSPHATASE 78 U/L (45-117); AST/SGOT 32 U/L (15-37)
== END | disposition home or self-care (01) ==
LOC: C.LAB1850 08:24
PROVIDERS: ATTEND Internal Medicine
DX: R74.8 Abnormal levels of other serum enzymes (principal)

== ENCOUNTER → 2016-07-23 | Outpatient (CLI) | payer BC ==
[2016-07-23 10:38] LABS: HEMATOCRIT 39.8 % (42-52); MEAN CELL VOLUME 97.5 fL (80-100); MEAN CORPUSCULAR HEMOGLOBIN 34.1 pg (25-34); MEAN CORPUSCULAR HGB CONC 34.9 g/dl (32-36); PLATELET COUNT 166 K/uL (130-400); RED BLOOD COUNT 4.08 M/uL (4.7-6.1); WHITE BLOOD COUNT 5.81 K/uL (4.8-10.8)
[2016-07-23 10:55] LABS: CALCIUM 9.3 mg/dl (8.5-10.1)
[2016-07-23 11:08] LABS: ALT/SGPT 26 U/L (12-78); AST/SGOT 19 U/L (15-37); BLOOD UREA NITROGEN 17 mg/dl (7-18); BUN/CREATININE RATIO 15.2 (10-20); CARBON DIOXIDE 31 mmol/L (21-32); CHLORIDE 103 mmol/L (98-107); GLUCOSE 129 mg/dl (70-99); POTASSIUM 3.6 mmol/L (3.5-5.1); SODIUM 141 mmol/L (136-145)
[2016-07-23 11:18] LABS: ALKALINE PHOSPHATASE 74 U/L (45-117)
== END | disposition home or self-care (01) ==
LOC: C.LAB1850 09:07
PROVIDERS: ATTEND Internal Medicine
DX: I10 Essential (primary) hypertension (principal); R94.5 Abnormal results of liver function studies

== ENCOUNTER → 2017-01-23 | Outpatient (CLI) | payer BC ==
[2017-01-23 10:07] LABS: HEMATOCRIT 41.1 % (42-52); MEAN CELL VOLUME 95.4 fL (80-100); MEAN CORPUSCULAR HEMOGLOBIN 33.4 pg (25-34); MEAN PLATELET VOLUME 9.3 fL (7.4-10.4); PLATELET COUNT 121 K/uL (130-400); RED BLOOD COUNT 4.31 M/uL (4.7-6.1); WHITE BLOOD COUNT 6.35 K/uL (4.8-10.8)
[2017-01-23 10:36] LABS: ALT/SGPT 28 U/L (12-78); BLOOD UREA NITROGEN 26 mg/dl (7-18); BUN/CREATININE RATIO 21.8 (10-20); CALCIUM 8.8 mg/dl (8.5-10.1); CARBON DIOXIDE 30 mmol/L (21-32); CHLORIDE 101 mmol/L (98-107); CHOLESTEROL 183 mg/dl (0-200); GLUCOSE 182 mg/dl (70-99); POTASSIUM 3.3 mmol/L (3.5-5.1); SODIUM 139 mmol/L (136-145)
[2017-01-23 10:41] LABS: ALB/GLOB RATIO 1.1 (0.9-2); ALKALINE PHOSPHATASE 71 U/L (45-117); AST/SGOT 20 U/L (15-37); CHOLESTEROL/HDL RATIO 3.7; HDL CHOLESTEROL 50 mg/dl; LDL CHOLESTEROL CALCULATED 89 mg/dl; PROSTATE SPECIFIC ANTIGEN 0.606 ng/ml (0.000-4.000); TRIGLYCERIDES 221 mg/dl (0-150); VERY LOW DENSITY LIPOPROT CALC 44 mg/dl
== END | disposition home or self-care (01) ==
LOC: C.LAB1850 09:17
PROVIDERS: ATTEND Internal Medicine
DX: R94.5 Abnormal results of liver function studies (principal); Z12.5 Encounter for screening for malignant neoplasm of prostate

== ENCOUNTER 2018-05-02 15:44 | Inpatient (IN) ==
[2018-05-02 16:56] LABS: Basophils # (auto) 0.05 K/uL (0-0.2); Basophils % (auto) 0.9 %; Eosinophils # (auto) 0.28 K/uL (0-0.5); Eosinophils % (auto) 4.9 %; Hematocrit (blood only) 38.6 % (42-52); Hemoglobin 13.8 g/dL (14.0-18.0); Immature Granulocytes # (auto) 0.01 K/uL (0.00-0.02); Immature Granulocytes % (auto) 0.2 %; Lymphocytes # (auto) 1.32 K/uL (1.2-3.4); Lymphocytes % (auto) 22.9 %; Mean Corpuscular Hgb Conc 35.8 g/dL (32-36); Mean Corpuscular Volume 98.5 fL (80-100); Mean Platelet Volume 9.4 fL (7.4-10.4); Monocytes # (auto) 0.76 K/uL (0.11-0.59); Monocytes % (auto) 13.2 %; Neutrophils # (auto) 3.34 K/uL (1.4-6.5); Neutrophils % (auto) 57.9 %; Platelet Count 135 K/uL (130-400); RDW Coefficient of Variation 14.5 % (11.5-14.5); RDW Standard Deviation 50.9 fL (36.4-46.3); Red Blood Count 3.92 M/uL (4.7-6.1); White Blood Count 5.76 K/uL (4.8-10.8)
[2018-05-02 16:57] LABS: iSTAT Creatinine 1.1 mg/dl (0.6-1.3); iSTAT Hemoglobin 12.9 g/dl (14.0-18.0); iSTAT Ionized Calcium 1.15 mmol/l (1.12-1.32); iSTAT Potassium 3.5 mEq/L (3.3-5.0)
[2018-05-02] MEDS: HydrALAZINE HCL 20 MG/ML VIAL IV PRN ×2 (17:04→18:02)
[2018-05-02 17:10] LABS: INR 1.3 (0.9-1.1); Partial Thromboplastin Time 27.5 Seconds (21.0-31.0)
[2018-05-02 17:12] LABS: Alanine Aminotransferase 36 U/L (12-78); Albumin Level 3.6 gm/dl (3.4-5.0); Aspartate Aminotransferase 25 U/L (15-37); Blood Urea Nitrogen 22 mg/dl (7-18); Calcium 8.4 mg/dl (8.5-10.1); Carbon Dioxide 30 mmol/L (21-32); Chloride 100 mmol/L (98-107); Creatinine Clr Calc Pharmacy 57.1 ml/min; Est GFR (Non-African American) 67.3; Glucose 106 mg/dl (70-99); Magnesium 1.7 mg/dl (1.8-2.4); Potassium 3.5 mmol/L (3.5-5.1); Sodium 137 mmol/L (136-145)
[2018-05-02 17:17] LABS: Albumin Globulin Ratio 1.2 (0.9-2); Alkaline Phosphatase 153 U/L (45-117); Bilirubin,Total 0.9 mg/dl (0.2-1); Creatine Kinase MB 1.7 ng/ml (0.5-3.6); Globulin 3.1 gm/dl (2.5-4.0); Total Protein 6.7 gm/dl (6.4-8.2); Troponin I < 0.015 ng/ml (0-0.045)
[2018-05-02 17:21] LABS: Appearance Urine Cloudy (Clear); Bacteria Urine Automated Negative (Negative); Bilirubin Urine Negative (Negative); Blood Urine Negative (Negative); Cast Urine Automated 0 /lpf (0-5); Color Urine Yellow; Epithelial Cell Urine Auto 0-5 /lpf (0-5); Glucose Urine UA Negative (Negative); Ketones Urine Negative (Negative); Leukocyte Esterase Urine Negative (Negative); Nitrite Urine Negative (Negative); Protein Urine Negative (Negative); RBC Urine Automated 0-4 /hpf (0-4); Specific Gravity Urine 1.011 (1.000-1.030); Urobilinogen Urine Negative (Negative); WBC Urine Automated 0 /hpf (0-5); pH Urine 6.5 (4.5-7.5)
[2018-05-02] MEDS ORDERED: OPTIRAY 320 125ml IV PRN (17:31)
--- NOTE | 2018-05-02 17:40 | CT Scan Report ---
HEAD CT NONCONTRAST CT DOSE: HISTORY: Stroke symptoms. TECHNIQUE: Multiaxial CT images of the head were performed without the use of intravenous contrast. A utomated exposure control was utilized for this study. A dose lowering technique was utilized adheri ng to the principles of ALARA. Comparison: None. Findings: The paranasal sinuses and mastoid air cells are clear. The calvarium and skull base are int act. There is no mass, hematoma, midline shift, acute infarct. White matter hypodensity is nonspecifi c but suggestive of microvascular ischemic change. The ventricles and sulci demonstrate mild age-rela marline involutional changes. Impression: No acute intracranial abnormality. Atrophy and microvascular ischemic changes. Electronically signed by: Giacomo Coles M.D. 05/02/2018 5:38 PM
--- NOTE | 2018-05-02 17:48 | CT Scan Report ---
HEAD & NECK CTA HISTORY: Pt c/o confusion TECHNIQUE: Multiaxial CT images of the head were performed following the intravenous administration o f contrast to evaluate the major cerebral vessels. Multiaxial CT images of the neck were also perform ed following the intravenous administration of contrast to evaluate the major cervical vessels. Maxim um intensity projection images were also obtained. A dose lowering technique was utilized adhering to the principles of ALARA. COMPARISON: Head CT 05/02/2018. FINDINGS: There is no mass, hematoma, midline shift, or acute infarct. Visualized intracranial internal carotid arteries, distal vertebral arteries, and basilar artery are widely patent. There is no significant s tenosis, occlusion, or aneurysm seen within the bilateral ACAs, MCAs, or pharmacognosy teacher. Moderate calcified justice que within the bilateral carotid siphons. The major dural venous sinuses are patent. The distal right vertebral artery and bilateral pharmacognosy teacher are slightly hypoplastic but patent. The aortic arch and proximal great vessels are widely patent. A 2.6 mm groundglass nodule withi n the right upper lobe. This does not meet CT criteria for follow-up. Moderate calcified plaque withi n the right carotid bulb resulting in approximately 40% stenosis proximally. Significant atherosclero tic plaque within the left carotid bulb resulting in up to 75% stenosis at the takeoff of the left in ternal carotid artery. This is best in image 205. Remaining proximal left internal carotid artery dem onstrates approximately 60% stenosis. The mid to distal bilateral internal carotid arteries and bilat eral common carotid arteries are patent. The right vertebral artery is slightly hypoplastic. 50-60% f ocal narrowing within the right vertebral artery due to mass effect from the facets at the C4-C5 leve l. Severe stenosis of approximately 90% within the right vertebral artery at the C5-C6 level also due to the mass effect from the degenerative change. IMPRESSION: 1. No significant stenosis, occlusion, or aneurysm within the [place]. 2. Approximately 75% focal stenosis at the takeoff of the left internal carotid artery. 3. Approximate 40% stenosis within the proximal right internal carotid artery. 4. Multifocal areas of narrowing within the right vertebral artery due to mass effect from the cervic al spine degenerative change. Electronically signed by: Giacomo Coles M.D. 05/02/2018 5:47 PM
--- NOTE | 2018-05-02 17:48 | CT Scan Report ---
HEAD & NECK CTA HISTORY: Pt c/o confusion TECHNIQUE: Multiaxial CT images of the head were performed following the intravenous administration o f contrast to evaluate the major cerebral vessels. Multiaxial CT images of the neck were also perform ed following the intravenous administration of contrast to evaluate the major cervical vessels. Maxim um intensity projection images were also obtained. A dose lowering technique was utilized adhering to the principles of ALARA. COMPARISON: Head CT 05/02/2018. FINDINGS: There is no mass, hematoma, midline shift, or acute infarct. Visualized intracranial internal carotid arteries, distal vertebral arteries, and basilar artery are widely patent. There is no significant s tenosis, occlusion, or aneurysm seen within the bilateral ACAs, MCAs, or tape cutting machine operator. Moderate calcified justice que within the bilateral carotid siphons. The major dural venous sinuses are patent. The distal right vertebral artery and bilateral tape cutting machine operator are slightly hypoplastic but patent. The aortic arch and proximal great vessels are widely patent. A 2.6 mm groundglass nodule withi n the right upper lobe. This does not meet CT criteria for follow-up. Moderate calcified plaque withi n the right carotid bulb resulting in approximately 40% stenosis proximally. Significant atherosclero tic plaque within the left carotid bulb resulting in up to 75% stenosis at the takeoff of the left in ternal carotid artery. This is best in image 205. Remaining proximal left internal carotid artery dem onstrates approximately 60% stenosis. The mid to distal bilateral internal carotid arteries and bilat eral common carotid arteries are patent. The right vertebral artery is slightly hypoplastic. 50-60% f ocal narrowing within the right vertebral artery due to mass effect from the facets at the C4-C5 leve l. Severe stenosis of approximately 90% within the right vertebral artery at the C5-C6 level also due to the mass effect from the degenerative change. IMPRESSION: 1. No significant stenosis, occlusion, or aneurysm within the [place]. 2. Approximately 75% focal stenosis at the takeoff of the left internal carotid artery. 3. Approximate 40% stenosis within the proximal right internal carotid artery. 4. Multifocal areas of narrowing within the right vertebral artery due to mass effect from the cervic al spine degenerative change. Electronically signed by: Giacomo Coles M.D. 05/02/2018 5:47 PM
--- NOTE | 2018-05-02 18:03 | XRay Report ---
XR chest 1V portable HISTORY: Altered mental status. COMPARISON: None. FINDINGS: No focal lung consolidations to suggest pneumonia. No evidence for pulmonary edema. The hea rt is mildly enlarged. No pleural effusions. No pneumothorax. Mild emphysema. IMPRESSION: 1. Mild cardiomegaly. 2. Mild emphysema. Electronically signed by: Giacomo Coles M.D. 05/02/2018 6:02 PM
[2018-05-02 18:21] LABS: Influenza A virus by PCR Neg for Influ A (Neg); Influenza B virus by PCR Neg for Influ B (Neg)
[2018-05-02] MEDS ORDERED: ASPIRIN CHEW 324 MG PO STA (19:14)
--- NOTE | 2018-05-02 19:46 | History & Physical Report ---
Date of Service May 02, 2018 Assessment & Plan (1) Confusion with non-focal neuro exam: 82-year-old male with history of hypertension, AK I and hepatic steatosis and reported alcohol overuse in previous records who comes in with acute confusion. Patient states he was in his normal state of health as of this morning when he woke up, and then around 930 this morning he was trying to operate the television and could not. He states he became very confused and frustrated because he could not "figure out the TV". He and his decided together that EMS should be called. EMS brought him here. He was found to have a high blood pressure. Blood pressure was 213/69. He has received 2 doses of hydralazine 10 mg. His blood pressure is now 196/92. Patient states his confusion is about the same now. He also states he had a 5-minute episode of tingling in his right hand earlier today as well but this is since resolved. ROS otherwise negative as noted above. No focal weakness or facial droop. Of note patient states he drinks 2-3 bottles of light beer a day. His last drink was this morning with his breakfast. He states he does not have a pacemaker. 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 (4) Elevated alkaline phosphatase level: has deferred further work up in the past outpatient, likely c/w h/o hepatic steatosis (per outside records). Currently not symptomatic, will follow clinically. 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 Mgmt as above. (6) Anxiety: chronic. continue home lorazepam. [facility] protocol as above. History of Present Illness Chief Complaint: Altered mental status Primary Care Provider: Nicolas Foreman MD 82-year-old male with history of hypertension, AK I and hepatic steatosis and reported alcohol overuse in previous records who comes in with acute confusion. Patient states he was in his normal state of health as of this morning when he woke up, and then around 930 this morning he was trying to operate the television and could not. He states he became very confused and frustrated because he could not "figure out the TV". He and his decided together that EMS should be called. EMS brought him here. He was found to have a high blood pressure. Blood pressure was 213/69. He has received 2 doses of hydralazine 10 mg. His blood pressure is now 196/92. Patient states his confusion is about the same now. He also states he had a 5-minute episode of tingling in his right hand earlier today as well but this is since resolved. Of note patient states he drinks 2-3 bottles of light beer a day. His last drink was this morning with his breakfast. He states he does not have a pacema ker. Past medical history: Abnormal liver enzymes, alcohol abuse, anxiety, hypertension, hypothyroid Past surgical history: cataract, colonoscopy, tonsillectomy Home medications: Lorazepam 1 mg 2 tablets nightly, as needed during the day. Losartan hydrochlorothiazide 50-12.51 tablet twice daily, metoprolol 50 mg 1 tablet in the morning and a half in the evening. 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 Denies smoking or illicit drug use. States he drinks 2-3 bottles of lite beer per day. Allergies Allergy/AdvReac Type Severity Reaction Status Date / Time No Known Allergies Allergy Unverified 04/30/16 09:56 Home Medications Home Medications Medication Instructions Recorded Confirmed Type Unobtainable 05/02/18 05/02/18 History amlodipine 10 mg PO DAILY #30 tab 05/03/18 Rx aspirin [Ecotrin Low Strength] 81 mg PO QAM #30 tab 05/03/18 Rx folic acid 1 mg PO QAM #30 tab 05/03/18 Rx thiamine HCl (vitamin B1) [Vitamin 100 mg PO QAM #30 tab 05/03/18 Rx B-1] Past Med/Surg History Medical History Hypertension Hepatic steatosis Hypothyroidism Insomnia Surgical History History of cataract surgery History of tonsillectomy Social History Preferred Language: Bengali Beliefs That Will Affect Care: None marital status: Current Living Situation: Spouse current occupational status: retired 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 Feels Safe at Home: Yes Safety Concerns: Feels Safe At This Time Smoking Status: Former smoker Hx Alcohol Use: Yes Hx Substance Use: No Review of Systems All systems reviewed & are unremarkable except as noted in HPI & below (Patient denies visual changes, facial droop, difficulty swallowing, chest pain, shortness of breath, syncope, abdominal pain, weakness in his limbs.) Physical Exam Vital Signs (Past 24 Hours): Last Vital Signs Temp 37 C 05/02/18 16:03 Pulse 68 05/02/18 19:00 Resp 20 05/02/18 19:00 BP 175/68 H 05/02/18 19:00 Pulse Ox 97 05/02/18 19:00 Physical Exam: Vitals noted as above and within normal limits with the exception of permissive hypertension. GENERAL: Awake, alert to person, place, and time, nontoxic-appearing, in no distress HENT: Normocephalic, atraumatic. Mucus membranes appear moist. Poor dentition. EYES: Normal conjunctiva. Sclera non-icteric. EOMI. NECK: Supple. Full range of motion. No JVD RESPIRATORY: Clear to auscultation. Normal work of breathing. CARDIAC: Regular rate, normal rhythm. Extremities warm and well perfused, 2+ radial pulses bilaterally; 2+ posterior tibialis pulses bilaterally. ABDOMEN: Soft, non-distended. Bowel sounds are normal. LOWER EXTREMITIES: Inspection of calves reveal equal size bilaterally. They are non-tender. No edema. No discoloration. NEURO: No focal gross focal motor deficits noted. Sensation in tact. CN II-XII grossly in tact. Sometimes uses inappropriate words to replace "hospital" for "ambulance". SKIN: Rash not present. No jaundice noted. Significant lesions not present. PSYCH: Appropriate mood and affect. Cooperative. Slightly anxious. Exam as done by Nickie Funk MD, Supplier Diversity Director. Results & Data Laboratory Results 05/02/18 05/02/1805/02/19 Range/Units 20:13 17:35 17:00 WBC (4.8-10.8) K/uL RBC (4.7-6.1) M/uL Hgb (14.0-18.0) g/dL POC Hgb (14.0-18.0) g/dl Hct (42-52) % POC Hct (42-52) % MCV (80-100) fL MCH (25-34) pg MCHC (32-36) g/dL RDW Std Deviation (36.4-46.3) fL RDW Coeff of Randall (11.5-14.5) % Plt Count (130-400) K/uL MPV (7.4-10.4) fL Immature Gran % (Auto) % Neut % (Auto) % Lymph % (Auto) % [place] % (Auto) % Eos % (Auto) % Baso % (Auto) % Immature Gran # (Auto) (0.00-0.02) K/uL Neut # (Auto) (1.4-6.5) K/uL Lymph # (Auto) (1.2-3.4) K/uL [place] # (Auto) (0.11-0.59) K/uL Eos # (Auto) (0-0.5) K/uL Baso # (Auto) (0-0.2) K/uL PT (9.0-12.0) Seconds INR (0.9-1.1) APTT (21.0-31.0) Seconds PTT Ratio POC Sodium (135-144) mEq/L Sodium (136-145) mmol/L POC Potassium (3.3-5.0) mEq/L Potassium (3.5-5.1) mmol/L POC Chloride (101-112) mEq/L Chloride (98-107) mmol/L Carbon Dioxide (21-32) mmol/L POC Total CO2 (24-31) mEq/l Anion Gap (3-11) POC Anion Gap (16-25) mmol/L POC BUN (7-18) mg/dl BUN (7-18) mg/dl Creatinine (0.6-1.4) mg/dl POC Creatinine (0.6-1.3) mg/dl Est Cr Clr Drug Dosing ml/min Est GFR ( Amer) Est GFR (Non-Af Amer) BUN/Creatinine Ratio (10-20) Glucose (70-99) mg/dl POC Glucose (other) (70-99) mg/dl Calcium (8.5-10.1) mg/dl POC Ioniz Calcium Kitty (1.12-1.32) mmol/l Magnesium (1.8-2.4) mg/dl Total Bilirubin (0.2-1) mg/dl AST (15-37) U/L ALT (12-78) U/L Alkaline Phosphatase (45-117) U/L CK-MB (CK-2) (0.5-3.6) ng/ml Troponin I (0-0.045) ng/ml Total Protein (6.4-8.2) gm/dl Albumin (3.4-5.0) gm/dl Globulin (2.5-4.0) gm/dl Albumin/Globulin Ratio (0.9-2) Urine Color Yellow Urine Appearance Cloudy H (Clear) Urine pH 6.5 (4.5-7.5) Ur Specific [place] 1.011 (1.000-1.030) Urine Protein Negative (Negative) Urine Glucose (UA) Negative (Negative) Urine Ketones Negative (Negative) Urine Blood Negative (Negative) Urine Nitrite Negative (Negative) Urine Bilirubin Negative (Negative) Urine Urobilinogen Negative (Negative) Ur Leukocyte Esterase Negative (Negative) Urine WBC (Auto) 0 (0-5) /hpf Urine RBC (Auto) 0-4 (0-4) /hpf U Hyaline Cast (Auto) 0 (0-5) /lpf U Epithel Cells (Auto) 0-5 (0-5) /lpf Urine Bacteria (Auto) Negative (Negative) Ethyl Alcohol mg/dL Pending Influenza Type A (PCR) Neg for Influ A (Neg) Influenza Type B (PCR) Neg for Influ B (Neg) 05/02/18 05/02/18 05/02/18 Range/Units 16:42 16:35 16:35 WBC (4.8-10.8) K/uL RBC (4.7-6.1) M/uL Hgb (14.0-18.0) g/dL POC Hgb 12.9 L (14.0-18.0) g/dl Hct (42-52) % POC Hct 38 L (42-52) % MCV (80-100) fL MCH (25-34) pg MCHC (32-36) g/dL RDW Std Deviation (36.4-46.3) fL RDW Coeff of Randall (11.5-14.5) % Plt Count (130-400) K/uL MPV (7.4-10.4) fL Immature Gran % (Auto) % Neut % (Auto) % Lymph % (Auto) % [place] % (Auto) % Eos % (Auto) % Baso % (Auto) % Immature Gran # (Auto) (0.00-0.02) K/uL Neut # (Auto) (1.4-6.5) K/uL Lymph # (Auto) (1.2-3.4) K/uL [place] # (Auto) (0.11-0.59) K/uL Eos # (Auto) (0-0.5) K/uL Baso # (Auto) (0-0.2) K/uL PT 13.0 H (9.0-12.0) Seconds INR 1.3 H (0.9-1.1) APTT 27.5 (21.0-31.0) Seconds PTT Ratio 1.0 POC Sodium 140 (135-144) mEq/L Sodium 137 (136-145) mmol/L POC Potassium 3.5 (3.3-5.0) mEq/L Potassium 3.5 (3.5-5.1) mmol/L POC Chloride 95 L (101-112) mEq/L Chloride 100 (98-107) mmol/L Carbon Dioxide 30 (21-32) mmol/L POC Total CO2 28 (24-31) mEq/l Anion Gap 7.0 (3-11) POC Anion Gap 21.0 (16-25) mmol/L POC BUN 22 H (7-18) mg/dl BUN 22 H (7-18) mg/dl Creatinine 1.03 (0.6-1.4) mg/dl POC Creatinine 1.1 (0.6-1.3) mg/dl Est Cr Clr Drug Dosing 57.1 ml/min Est GFR ( Amer) 78.0 Est GFR (Non-Af Amer) 67.3 BUN/Creatinine Ratio 21.0 H (10-20) Glucose 106 H (70-99) mg/dl POC Glucose (other) 110 H (70-99) mg/dl Calcium 8.4 L (8.5-10.1) mg/dl POC Ioniz Calcium Iktty 1.15 (1.12-1.32) mmol/l Magnesium 1.7 L (1.8-2.4) mg/dl Total Bilirubin 0.9 (0.2-1) mg/dl AST 25 (15-37) U/L ALT 36 (12-78) U/L Alkaline Phosphatase 153 H (45-117) U/L CK-MB (CK-2) 1.7 (0.5-3.6) ng/ml Troponin I < 0.015 (0-0.045) ng/ml Total Protein 6.7 (6.4-8.2) gm/dl Albumin 3.6 (3.4-5.0) gm/dl Globulin 3.1 (2.5-4.0) gm/dl Albumin/Globulin Ratio 1.2 (0.9-2) Urine Color Urine Appearance (Clear) Urine pH (4.5-7.5) Ur Specific [place] (1.000-1.030) Urine Protein (Negative) Urine Glucose (UA) (Negative) Urine Ketones (Negative) Urine Blood (Negative) Urine Nitrite (Negative) Urine Bilirubin (Negative) Urine Urobilinogen (Negative) Ur Leukocyte Esterase (Negative) Urine WBC (Auto) (0-5) /hpf Urine RBC (Auto) (0-4) /hpf U Hyaline Cast (Auto) (0-5) /lpf U Epithel Cells (Auto) (0-5) /lpf Urine Bacteria (Auto) (Negative) Ethyl Alcohol mg/dL Influenza Type A (PCR) (Neg) Influenza Type B (PCR) (Neg) 05/02/18 Range/Units 16:35 WBC 5.76 (4.8-10.8) K/uL RBC 3.92 L (4.7-6.1) M/uL Hgb 13.8 L (14.0-18.0) g/dL POC Hgb (14.0-18.0) g/dl Hct 38.6 L (42-52) % POC Hct (42-52) % MCV 98.5 (80-100) fL MCH 35.2 H (25-34) pg MCHC 35.8 (32-36) g/dL RDW Std Deviation 50.9 H (36.4-46.3) fL RDW Coeff of Randall 14.5 (11.5-14.5) % Plt Count 135 (130-400) K/uL MPV 9.4 (7.4-10.4) fL Immature Gran % (Auto) 0.2 % Neut % (Auto) 57.9 % Lymph % (Auto) 22.9 % [place] % (Auto) 13.2 % Eos % (Auto) 4.9 % Baso % (Auto) 0.9 % Immature Gran # (Auto) 0.01 (0.00-0.02) K/uL Neut # (Auto) 3.34 (1.4-6.5) K/uL Lymph # (Auto) 1.32 (1.2-3.4) K/uL [place] # (Auto) 0.76 H (0.11-0.59) K/uL Eos # (Auto) 0.28 (0-0.5) K/uL Baso # (Auto) 0.05 (0-0.2) K/uL PT (9.0-12.0) Seconds INR (0.9-1.1) APTT (21.0-31.0) Seconds PTT Ratio POC Sodium (135-144) mEq/L Sodium (136-145) mmol/L POC Potassium (3.3-5.0) mEq/L Potassium (3.5-5.1) mmol/L POC Chloride (101-112) mEq/L Chloride (98-107) mmol/L Carbon Dioxide (21-32) mmol/L POC Total CO2 (24-31) mEq/l Anion Gap (3-11) POC Anion Gap (16-25) mmol/L POC BUN (7-18) mg/dl BUN (7-18) mg/dl Creatinine (0.6-1.4) mg/dl POC Creatinine (0.6-1.3) mg/dl Est Cr Clr Drug Dosing ml/min Est GFR ( Amer) Est GFR (Non-Af Amer) BUN/Creatinine Ratio (10-20) Glucose (70-99) mg/dl POC Glucose (other) (70-99) mg/dl Calcium (8.5-10.1) mg/dl POC Ioniz Calcium Kitty (1.12-1.32) mmol/l Magnesium (1.8-2.4) mg/dl Total Bilirubin (0.2-1) mg/dl AST (15-37) U/L ALT (12-78) U/L Alkaline Phosphatase (45-117) U/L CK-MB (CK-2) (0.5-3.6) ng/ml Troponin I (0-0.045) ng/ml Total Protein (6.4-8.2) gm/dl Albumin (3.4-5.0) gm/dl Globulin (2.5-4.0) gm/dl Albumin/Globulin Ratio (0.9-2) Urine Color Urine Appearance (Clear) Urine pH (4.5-7.5) Ur Specific [place] (1.000-1.030) Urine Protein (Negative) Urine Glucose (UA) (Negative) Urine Ketones (Negative) Urine Blood (Negative) Urine Nitrite (Negative) Urine Bilirubin (Negative) Urine Urobilinogen (Negative) Ur Leukocyte Esterase (Negative) Urine WBC (Auto) (0-5) /hpf Urine RBC (Auto) (0-4) /hpf U Hyaline Cast (Auto) (0-5) /lpf U Epithel Cells (Auto) (0-5) /lpf Urine Bacteria (Auto) (Negative) Ethyl Alcohol mg/dL Influenza Type A (PCR) (Neg) Influenza Type B (PCR) (Neg) Diagnostic Findings 05/02/[address]: No acute abnormality, atrophy with microvascular ischemic changes. 05/02/2018 head/neck CTA: shows normal [place], 75% focal stenosis at the takeoff of the left ICA, 40% stenosis within the proximal right ICA, multifocal areas of narrowing in the right vertebral artery to mass-effect from cervical spine degenerative change. 05/02/2018 cxr: mild CM, mild emphysema Medications Administered aspirin 324 mg, hydralazine 10mg x 2 ECG Additional Comments: 1st deg AV block, rate <100 Code Status & VTE Plan Code Status FULL Supervising Physician Co-Signing Physician Notes Attending addendum: I have physically seen this patient, have supervised the medical residents activities, and agree with the H&P unless as otherwise noted. Assessment and Plan: Altered mental status-- The patient will be admitted to telemetry for serial cardiac enzymes, serial EKG's, cardiac rhythm monitoring and a 2-D echocardiogram with Dopplers. CT of head negative for acute event. CTA head and neck significant for left internal carotid artery 75% focal stenosis, and right internal carotid artery proximal 40% stenosis. Right vertebral artery showing effects from cervical degenerative disc disease compression. Will order MRI of brain to assess for possible CVA. Placed on alcohol withdrawal program due to significant alcohol use history. 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 Stroke protocol order set. Continue aspirin 81 mg daily. Remainder of orders and notations as noted. Resident Activity Tracking Resident Involvement: Resident Care Provided Care Provided: Adult [facility]
[2018-05-02] MEDS ORDERED: cloNIDine HCL 0.3 MG/24 HR TRANSDERM SYS TD SCH (20:00)
[2018-05-02] MEDS ORDERED: MULTI-VITAMIN INFUSION 10 ML, THIAMINE HCL 100 MG, FOLIC ACID 1 MG in SODIUM CHLORIDE 0... IV SCH (20:00)
[2018-05-02] MEDS ORDERED: LORazepam 2 MG/4 ML VIAL IV STA ×2 (20:15→21:26)
--- NOTE | 2018-05-02 23:07 | Emergency Department Note ---
Entered by Tami Berrios acting as a scribe for Edin Melo MD History of Present Illness General Chief complaint: Altered Mental Status Stated complaint: AMS Time Seen by Provider: 05/02/18 16:03 Source: patient Mode of arrival: ambulatory Limitations: altered mental status History of Present Illness Onset (ago): hour(s) 8 Location: head Pain Consistency: + constant Relieved By: + none Exacerbated By: + none The patient is an 82 year old male who presents to the Emergency Room with complaints of AMS. He was brought to the ED via EMS from home, where he lives with his . He states he started to feel confused around 0900 this morning. He states he still feels confused here in the ED. He admits to a history of hypertension and states he takes daily medication for hypertension. He does not take daily blood thinners. The patient denies any current pain. His PCP is Dr. Foreman with [facility]. Home Medications Home Medications Medication Instructions Recorded Confirmed Type Unobtainable 05/02/18 05/02/18 History Allergies Allergy/AdvReac Type Severity Reaction Status Date / Time No Known Allergies Allergy Unverified 04/30/16 09:56 Past Med/Surg History Medical History Hypertension Social History Feels Safe at Home: Yes Smoking Status: Former smoker Review of Systems See HPI for pertinent positives & negatives. and A total of 10 systems reviewed and were otherwise negative Physical Exam Vital Signs Vital Signs - 24 hr 05/02/18 16:03 05/02/18 17:02 05/02/18 17:39 Temperature 37 C Temperature Source Oral Sepsis Recent Fever Within 48 Hours No Sepsis Action Taken by Nursing No Action Required Pulse Rate 62 54 L Pulse Rate [Apical] 74 Pulse Rate from SpO2 Sensor 51 L Pulse Rhythm Regular Pulse Strength Normal Respiratory Rate 20 18 20 Respiratory Effort / Characteristics Non-Labored Spontaneous Respiratory Depth Normal Respiratory Pattern Regular Blood Pressure 213/69 H 198/82 H Blood Pressure [Right Arm] 200/79 H Blood Pressure Mean 117 120 Blood Pressure Mean [Right Arm] 119 Blood Pressure Position Lying Pulse Oximetry 99 96 99 Oxygen Delivery Method Room Air 05/02/18 18:16 05/02/18 19:00 05/02/18 19:38 Temperature Temperature Source Sepsis Recent Fever Within 48 Hours Sepsis Action Taken by Nursing Pulse Rate 66 Pulse Rate [Apical] 75 68 Pulse Rate from SpO2 Sensor 66 Pulse Rhythm Pulse Strength Respiratory Rate 20 20 17 Respiratory Effort / Characteristics Respiratory Depth Respiratory Pattern Blood Pressure 189/71 H Blood Pressure [Right Arm] 141/75 H 175/68 H Blood Pressure Mean 110 Blood Pressure Mean [Right Arm] 97 103 Blood Pressure Position Pulse Oximetry 99 97 98 Oxygen Delivery Method Room Air Room Air Room Air 05/02/18 20:06 05/02/18 20:58 05/02/18 22:06 Temperature Temperature Source Sepsis Recent Fever Within 48 Hours Sepsis Action Taken by Nursing Pulse Rate 67 Pulse Rate [Apical] 66 62 Pulse Rate from SpO2 Sensor Pulse Rhythm Pulse Strength Respiratory Rate 22 14 17 Respiratory Effort / Characteristics Respiratory Depth Respiratory Pattern Blood Pressure 196/92 H Blood Pressure [Right Arm] 167/98 H 192/63 H Blood Pressure Mean 126 Blood Pressure Mean [Right Arm] 121 106 Blood Pressure Position Pulse Oximetry 98 96 Oxygen Delivery Method Room Air Room Air GENERAL: Awake, somewhat confused on interview, well-appearing, in no distress HENT: Normocephalic, atraumatic. Oropharynx unremarkable. EYES: Normal conjunctiva. Sclera non-icteric. NECK: Supple. No nuchal rigidity. FROM. No masses. RESPIRATORY: Clear to auscultation. No wheezes. No rales. Normal respiratory effort. CARDIAC: Normal rate. Normal rhythm. No murmurs. No rubs. Extremities warm and well perfused. Pulses equal. No JVD. GI: Soft, non-distended. No tenderness to palpation. No rebound or guarding. No masses. RECTAL: Deferred. MUSCULOSKELETAL: Atraumatic. Chest examination reveals no tenderness. The back is symmetrical on inspection without obvious abnormality. There is no CVA t enderness to palpation. No joint edema. LOWER EXTREMITIES: Calves are equal size bilaterally and non-tender. No edema. No discoloration. NEURO: Patient is somewhat confused on interview. No sensory or motor deficits noted. Course 160: Past medical records reviewed. The patient was evaluated in room A11A, and a complete history and physical examination were performed. 1814: I reevaluated the patient. He is leaving against medical advice. I discu ssed the risks associated with this decision but he is adamant about going home. 1914: I reevaluated the patient. He is agreeable with staying in the hospital for further evaluation and management. I will contact the hospital medicine team. 1924: I [facility] the [facility] The patient will be further evaluated. Consultations Consultation #1: I discussed the patients case [facility] The patient will be further evaluated. Time: 19:25 Administered Medications Clonidine HCl ([id number]-Jkn-5 0.3mg/24hr) 1 patch TD CQWK LEONIDES Stop: 06/01/18 19:59 Last Admin: 05/02/18 20:47 Dose: 1 patch Documented by: [id number] Hydralazine HCl (Hydralazine Hcl) 10 mg IV Q20M PRN PRN Reason: SBP above 185 or DBP above 110 Last Admin: 05/02/18 18:02 Dose: 10 mg Documented by: [id number] Admin: 05/02/18 17:04 Dose: 10 mg Documented by: [id number] Ioversol (Optiray 320 125ml) 120 ml IV ONCE PRN PRN Reason: Interaction Checking Stop: 05/06/18 17:30 Last Admin: 05/02/18 17:31 Dose: 120 ml Documented by: [id number] Discontinued Medications Aspirin (Aspirin) 324 mg PO NOW STA Stop: 05/02/18 19:15 Last Admin: 05/02/18 19:23 Dose: 324 mg Documented by: [id number] Multivitamins 10 ml/ Thiamine HCl 100 mg/ Folic Acid 1 mg/Sodium Chloride 1,011.2 mls @ 1,011.2 mls/hr IV .Q1H LEONIDES Stop: 05/02/18 20:59 Last Admin: 05/02/18 21:28 Dose: 1,011.2 mls/hr Documented by: [id number] Lorazepam (Ativan) 2 mg in 4 mls @ 4 mls/min IV NOW STA Stop: 05/02/18 20:16 Last Admin: 05/02/18 20:47 Dose: 4 mls/min Documented by: [id number] Lorazepam (Ativan) 2 mg in 4 mls @ 4 mls/min IV NOW STA Stop: 05/02/18 21:27 Last Admin: 05/02/18 22:32 Dose: 4 mls/min Documented by: [id number] Medical Decision Making Differential Diagnosis Differential diagnoses includes but is not limited to toxic, metabolic, infectious, traumatic, cardiac, neurologic, hematologic, psychiatric and inflammatory etiologies. Medical Records Attestation: I reviewed the patient's medical records. Home Medications Current Medication List: was personally reviewed by me Laboratory Data Attestation: I reviewed the patient's lab results. Result diagrams: 05/02/18 16:35 05/02/18 16:35 Lab Results 05/02/18 05/02/18 05/02/18 Range/Units 16:35 16:35 16:35 WBC 5.76 (4.8-10.8) K/uL RBC 3.92 L (4.7-6.1) M/uL Hgb 13.8 L (14.0-18.0) g/dL POC Hgb (14.0-18.0) g/dl Hct 38.6 L (42-52) % POC Hct (42-52) % MCV 98.5 (80-100) fL MCH 35.2 H (25-34) pg MCHC 35.8 (32-36) g/dL RDW Std Deviation 50.9 H (36.4-46.3) fL RDW Coeff of Randall 14.5 (11.5-14.5) % Plt Count 135 (130-400) K/uL MPV 9.4 (7.4-10.4) fL Immature Gran % (Auto) 0.2 % Neut % (Auto) 57.9 % Lymph % (Auto) 22.9 % Sierra % (Auto) 13.2 % Eos % (Auto) 4.9 % Baso % (Auto) 0.9 % Immature Gran # (Auto) 0.01 (0.00-0.02) K/uL Neut # (Auto) 3.34 (1.4-6.5) K/uL Lymph # (Auto) 1.32 (1.2-3.4) K/uL [place] # (Auto) 0.76 H (0.11-0.59) K/uL Eos # (Auto) 0.28 (0-0.5) K/uL Baso # (Auto) 0.05 (0-0.2) K/uL PT 13.0 H (9.0-12.0) Seconds INR 1.3 H (0.9-1.1) APTT 27.5 (21.0-31.0) Seconds PTT Ratio 1.0 POC Sodium (135-144) mEq/L Sodium 137 (136-145) mmol/L POC Potassium (3.3-5.0) mEq/L Potassium 3.5 (3.5-5.1) mmol/L POC Chloride (101-112) mEq/L Chloride 100 (98-107) mmol/L Carbon Dioxide 30 (21-32) mmol/L POC Total CO2 (24-31) mEq/l Anion Gap 7.0 (3-11) POC Anion Gap (16-25) mmol/L POC BUN (7-18) mg/dl BUN 22 H (7-18) mg/dl Creatinine 1.03 (0.6-1.4) mg/dl POC Creatinine (0.6-1.3) mg/dl Est Cr Clr Drug Dosing 57.1 ml/min Est GFR ( Amer) 78.0 Est GFR (Non-Af Amer) 67.3 BUN/Creatinine Ratio 21.0 H (10-20) Glucose 106 H (70-99) mg/dl POC Glucose (other) (70-99) mg/dl Calcium 8.4 L (8.5-10.1) mg/dl POC Ioniz Calcium Kitty (1.12-1.32) mmol/l Magnesium 1.7 L (1.8-2.4) mg/dl Total Bilirubin 0.9 (0.2-1) mg/dl AST 25 (15-37) U/L ALT 36 (12-78) U/L Alkaline Phosphatase 153 H (45-117) U/L CK-MB (CK-2) 1.7 (0.5-3.6) ng/ml Troponin I < 0.015 (0-0.045) ng/ml Total Protein 6.7 (6.4-8.2) gm/dl Albumin 3.6 (3.4-5.0) gm/dl Globulin 3.1 (2.5-4.0) gm/dl Albumin/Globulin Ratio 1.2 (0.9-2) Urine Color Urine Appearance (Clear) Urine pH (4.5-7.5) Ur Specific [place] (1.000-1.030) Urine Protein (Negative) Urine Glucose (UA) (Negative) Urine Ketones (Negative) Urine Blood (Negative) Urine Nitrite (Negative) Urine Bilirubin (Negative) Urine Urobilinogen (Negative) Ur Leukocyte Esterase (Negative) Urine WBC (Auto) (0-5) /hpf Urine RBC (Auto) (0-4) /hpf U Hyaline Cast (Auto) (0-5) /lpf U Epithel Cells (Auto) (0-5) /lpf Urine Bacteria (Auto) (Negative) Ethyl Alcohol mg/dL (0-3) mg/dl Influenza Type A (PCR) (Neg) Influenza Type B (PCR) (Neg) 05/02/18 05/02/18 05/02/18 Range/Units 16:42 17:00 17:35 WBC (4.8-10.8) K/uL RBC (4.7-6.1) M/uL Hgb (14.0-18.0) g/dL POC Hgb 12.9 L (14.0-18.0) g/dl Hct (42-52) % POC Hct 38 L (42-52) % MCV (80-100) fL MCH (25-34) pg MCHC (32-36) g/dL RDW Std Deviation (36.4-46.3) fL RDW Coeff of Randall (11.5-14.5) % Plt Count (130-400) K/uL MPV (7.4-10.4) fL Immature Gran % (Auto) % Neut % (Auto) % Lymph % (Auto) % Sierra % (Auto) % Eos % (Auto) % Baso % (Auto) % Immature Gran # (Auto) (0.00-0.02) K/uL Neut # (Auto) (1.4-6.5) K/uL Lymph # (Auto) (1.2-3.4) K/uL Sierra # (Auto) (0.11-0.59) K/uL Eos # (Auto) (0-0.5) K/uL Baso # (Auto) (0-0.2) K/uL PT (9.0-12.0) Seconds INR (0.9-1.1) APTT (21.0-31.0) Seconds PTT Ratio POC Sodium 140 (135-144) mEq/L Sodium (136-145) mmol/L POC Potassium 3.5 (3.3-5.0) mEq/L Potassium (3.5-5.1) mmol/L POC Chloride 95 L (101-112) mEq/L Chloride (98-107) mmol/L Carbon Dioxide (21-32) mmol/L POC Total CO2 28 (24-31) mEq/l Anion Gap (3-11) POC Anion Gap 21.0 (16-25) mmol/L POC BUN 22 H (7-18) mg/dl BUN (7-18) mg/dl Creatinine (0.6-1.4) mg/dl POC Creatinine 1.1 (0.6-1.3) mg/dl Est Cr Clr Drug Dosing ml/min Est GFR ( Amer) Est GFR (Non-Af Amer) BUN/Creatinine Ratio (10-20) Glucose (70-99) mg/dl POC Glucose (other) 110 H (70-99) mg/dl Calcium (8.5-10.1) mg/dl POC Ioniz Calcium Kitty 1.15 (1.12-1.32) mmol/l Magnesium (1.8-2.4) mg/dl Total Bilirubin (0.2-1) mg/dl AST (15-37) U/L ALT (12-78) U/L Alkaline Phosphatase (45-117) U/L CK-MB (CK-2) (0.5-3.6) ng/ml Troponin I (0-0.045) ng/ml Total Protein (6.4-8.2) gm/dl Albumin (3.4-5.0) gm/dl Globulin (2.5-4.0) gm/dl Albumin/Globulin Ratio (0.9-2) Urine Color Yellow Urine Appearance Cloudy H (Clear) Urine pH 6.5 (4.5-7.5) Ur Specific [place] 1.011 (1.000-1.030) Urine Protein Negative (Negative) Urine Glucose (UA) Negative (Negative) Urine Ketones Negative (Negative) Urine Blood Negative (Negative) Urine Nitrite Negative (Negative) Urine Bilirubin Negative (Negative) Urine Urobilinogen Negative (Negative) Ur Leukocyte Esterase Negative (Negative) Urine WBC (Auto) 0 (0-5) /hpf Urine RBC (Auto) 0-4 (0-4) /hpf U Hyaline Cast (Auto) 0 (0-5) /lpf U Epithel Cells (Auto) 0-5 (0-5) /lpf Urine Bacteria (Auto) Negative (Negative) Ethyl Alcohol mg/dL (0-3) mg/dl Influenza Type A (PCR) Neg for Influ A (Neg) Influenza Type B (PCR) Neg for Influ B (Neg) 05/02/18 Range/Units 20:13 WBC (4.8-10.8) K/uL RBC (4.7-6.1) M/uL Hgb (14.0-18.0) g/dL POC Hgb (14.0-18.0) g/dl Hct (42-52) % POC Hct (42-52) % MCV (80-100) fL MCH (25-34) pg MCHC (32-36) g/dL RDW Std Deviation (36.4-46.3) fL RDW Coeff of Randall (11.5-14.5) % Plt Count (130-400) K/uL MPV (7.4-10.4) fL Immature Gran % (Auto) % Neut % (Auto) % Lymph % (Auto) % [place] % (Auto) % Eos % (Auto) % Baso % (Auto) % Immature Gran # (Auto) (0.00-0.02) K/uL Neut # (Auto) (1.4-6.5) K/uL Lymph # (Auto) (1.2-3.4) K/uL [place] # (Auto) (0.11-0.59) K/uL Eos # (Auto) (0-0.5) K/uL Baso # (Auto) (0-0.2) K/uL PT (9.0-12.0) Seconds INR (0.9-1.1) APTT (21.0-31.0) Seconds PTT Ratio POC Sodium (135-144) mEq/L Sodium (136-145) mmol/L POC Potassium (3.3-5.0) mEq/L Potassium (3.5-5.1) mmol/L POC Chloride (101-112) mEq/L Chloride (98-107) mmol/L Carbon Dioxide (21-32) mmol/L POC Total CO2 (24-31) mEq/l Anion Gap (3-11) POC Anion Gap (16-25) mmol/L POC BUN (7-18) mg/dl BUN (7-18) mg/dl Creatinine (0.6-1.4) mg/dl POC Creatinine (0.6-1.3) mg/dl Est Cr Clr Drug Dosing ml/min Est GFR ( Amer) Est GFR (Non-Af Amer) BUN/Creatinine Ratio (10-20) Glucose (70-99) mg/dl POC Glucose (other) (70-99) mg/dl Calcium (8.5-10.1) mg/dl POC Ioniz Calcium Kitty (1.12-1.32) mmol/l Magnesium (1.8-2.4) mg/dl Total Bilirubin (0.2-1) mg/dl AST (15-37) U/L ALT (12-78) U/L Alkaline Phosphatase (45-117) U/L CK-MB (CK-2) (0.5-3.6) ng/ml Troponin I (0-0.045) ng/ml Total Protein (6.4-8.2) gm/dl Albumin (3.4-5.0) gm/dl Globulin (2.5-4.0) gm/dl Albumin/Globulin Ratio (0.9-2) Urine Color Urine Appearance (Clear) Urine pH (4.5-7.5) Ur Specific [place] (1.000-1.030) Urine Protein (Negative) Urine Glucose (UA) (Negative) Urine Ketones (Negative) Urine Blood (Negative) Urine Nitrite (Negative) Urine Bilirubin (Negative) Urine Urobilinogen (Negative) Ur Leukocyte Esterase (Negative) Urine WBC (Auto) (0-5) /hpf Urine RBC (Auto) (0-4) /hpf U Hyaline Cast (Auto) (0-5) /lpf U Epithel Cells (Auto) (0-5) /lpf Urine Bacteria (Auto) (Negative) Ethyl Alcohol mg/dL < 3.0 (0-3) mg/dl Influenza Type A (PCR) (Neg) Influenza Type B (PCR) (Neg) Imaging Data Radiologist's Impression: Radiology results as stated below per my review and the radiologist's interpretation: XR chest 1V portable HISTORY: Altered mental status. COMPARISON: None. FINDINGS: No focal lung consolidations to suggest pneumonia. No evidence for pulmonary edema. The heart is mildly enlarged. No pleural effusions. No pneumothorax. Mild emphysema. IMPRESSION: 1. Mild cardiomegaly. 2. Mild emphysema. Electronically signed by: Giacomo Coles M.D. 05/02/2018 6:[address]AST CT DOSE: HISTORY: Stroke symptoms. TECHNIQUE: Multiaxial CT images of the head were performed without the use of intravenous contrast. Automated exposure control was utilized for this study. A dose lowering technique was utilized adhering to the principles of ALARA. Comparison: None. Findings: The paranasal sinuses and mastoid air cells are clear. The calvarium and skull base are intact. There is no mass, hematoma, midline shift, acute infarct. White matter hypodensity is nonspecific but suggestive of microvascular ischemic change. The ventricles and sulci demonstrate mild age-related involutional changes. Impression: No acute intracranial abnormality. Atrophy and microvascular ischemic changes. Electronically signed by: Giacomo Coles M.D. 05/02/2018 5:38 PM HEAD & NECK CTA HISTORY: Pt c/o confusion TECHNIQUE: Multiaxial CT images of the head were performed following the intravenous administration of contrast to evaluate the major cerebral vessels. Multiaxial CT images of the neck were also performed following the intravenous administration of contrast to evaluate the major cervical vessels. Maximum intensity projection images were also obtained. A dose lowering technique was utilized adhering to the principles of ALARA. COMPARISON: Head CT 05/02/2018. FINDINGS: There is no mass, hematoma, midline shift, or acute infarct. Visualized intracranial internal carotid arteries, distal vertebral arteries, and basilar artery are widely patent. There is no significant stenosis, occlusion, or aneurysm seen within the bilateral ACAs, MCAs, or self propelled mining machine operator. Moderate calcified plaque within the bilateral carotid siphons. The major dural venous sinuses are patent. The distal right vertebral artery and bilateral self propelled mining machine operator are slightly hypoplastic but patent. The aortic arch and proximal great vessels are widely patent. A 2.6 mm groundglass nodule within the right upper lobe. This does not meet CT criteria for follow-up. Moderate calcified plaque within the right carotid bulb resulting in approximately 40% stenosis proximally. Significant atherosclerotic plaque within the left carotid bulb resulting in up to 75% stenosis at the takeoff of the left internal carotid artery. This is best in image 205. Remaining proximal left internal carotid artery demonstrates approximately 60% stenosis. The mid to distal bilateral internal carotid arteries and bilateral common carotid arteries are patent. The right vertebral artery is slightly hypoplastic. 50-60% focal narrowing within the right vertebral artery due to mass effect from the facets at the C4-C5 level. Severe stenosis of approximately 90% within the right vertebral artery at the C5-C6 level also due to the mass effect from the degenerative change. IMPRESSION: 1. No significant stenosis, occlusion, or aneurysm within the [place] of [place]. 2. Approximately 75% focal stenosis at the takeoff of the left internal carotid artery. 3. Approximate 40% stenosis within the proximal right internal carotid artery. 4. Multifocal areas of narrowing within the right vertebral artery due to mass effect from the cervical spine degenerative change. Electronically signed by: Giacomo Coles M.D. 05/02/2018 5:47 PM ECG Data Attestation: I personally reviewed and interpreted this ECG as follows: Indication: altered mental status Rate (beats per minute): 56 Rhythm: sinus bradycardia Findings: + 1st degree AV block; no ST depression and no ST elevation Blood Pressure Blood Pressure Findings: Elevated blood pressure Blood Pressure Disposition: further management by hospitalist MDM Narrative This is an 82-year-old male who presents emergency department complaining of altered mental status. The patient reports he cannot grasp a remote control earlier this evening. Patient arrives with a very high blood pressure. For this reason he was given IV hydralazine x3. He was sent for CT of the head as well as CTA of the head and neck. Upon further questioning the patient drinks a fair amount of alcohol throughout the day. For this reason he was given 2 mg of Ativan and started on a clonidine patch. I am concerned that the patient is having hypertensive urgency therefore discussed the case with the hospitalist service who agreed to admit the patient Impression & Plan Hypertensive urgency Critical Care Time I have personally spent greater than 90 minutes of critical care time in the direct management of this patient. This includes bedside care, interpretation of diagnostic studies, and testing, discussion with consultants, patient, and family members, and other required patient management activities. This 90 minutes is in excess of all separately billable procedures. Discharge Plan Visit Data *Final* Discharge Date/Time: 05/02/18 22:48 Chief Complaint: Altered Mental Status Stated Complaint: [facility] ED Provider: Edin Melo Discharge Problem: Hypertensive urgency Patient Disposition: Admitted As Inpatient Discharge Instructions Interventions: ED Discharge Assessment Last Done: 05/02/18 22:48 The scribe's documentation has been prepared under my direction and personally reviewed by me in its entirety. I confirm that the note above accurately reflects all work, treatment, procedures, and medical decision making performed by me.
[2018-05-02] MEDS ORDERED: LORazepam 1 MG/2 ML VIAL IV PRN ×2 (23:29)
[2018-05-02] MEDS ORDERED: LORazepam 1 MG TAB PO PRN (23:29)
[2018-05-02] MEDS ORDERED: ACETAMINOPHEN 325 MG TAB PO PRN (23:29)
[2018-05-02] MEDS ORDERED: MAGNESIUM HYDROXIDE SUSP 30 ML UDC PO PRN (23:29)
[2018-05-02] MEDS ORDERED: ONDANSETRON INJ 2 MG/ML 2 ML VIAL IV PRN (23:29)
[2018-05-02] MEDS ORDERED: ALUMINUM/MAGNESIUM SUSP 30 ML UDC PO PRN (23:29)
[2018-05-02] MEDS ORDERED: POLYETHYLENE (MIRALAX) 17 GM PACK PO PRN (23:29)
[2018-05-02] MEDS ORDERED: LORazepam 2 MG/4 ML VIAL IV PRN (23:29)
[2018-05-02] MEDS ORDERED: PHARMACIST DISCHARGE MED REC CONSULT PRN (23:29)
[2018-05-02] MEDS ORDERED: LORazepam 3 MG/6 ML VIAL IV PRN (23:29)
[2018-05-02] MEDS ORDERED: ATIVAN IV ALCOHOL WITHDRAWL IV SCH (23:29)
[2018-05-03] MEDS ORDERED: MULTI-VITAMIN INFUSION 10 ML, THIAMINE HCL 100 MG, FOLIC ACID 1 MG in SODIUM CHLORIDE 0... IV SCH
[2018-05-03] MEDS: THIAMINE HCL 100 MG TAB PO SCH ×2 (00:09→09:41)
[2018-05-03] MEDS: CHECK CLONIDINE PATCH PLACEMENT SCH ×3 (00:09→14:09)
--- NOTE | 2018-05-03 05:57 | Magnetic Resonance Report ---
MR brain wo con HISTORY: Mental status change confusion, stenosis of LICA, LA TECHNIQUE: Multiplanar multisequence MRI of the brain was performed without the use of contrast. COMPARISON STUDY: None. FINDINGS: Diffusion-weighted images show no evidence for an acute ischemic event. Moderate age-relate d atrophy and chronic small vessel change. The ventricular system is midline. The sella and parasella r regions are unremarkable. Internal artery canals are symmetric. IMPRESSION: No acute intracranial abnormality. Age-related atrophy and chronic small vessel change. The above report was generated using voice recognition software. It may contain grammatical, syntax or spelling errors. Electronically signed by: Napoleon Shaw M.D. 05/03/2018 5:55 AM
[2018-05-03 06:36] LABS: Basophils # (auto) 0.02 K/uL (0-0.2); Basophils % (auto) 0.3 %; Eosinophils # (auto) 0.24 K/uL (0-0.5); Eosinophils % (auto) 3.7 %; Hematocrit (blood only) 38.3 % (42-52); Hemoglobin 13.4 g/dL (14.0-18.0); Immature Granulocytes # (auto) 0.02 K/uL (0.00-0.02); Immature Granulocytes % (auto) 0.3 %; Lymphocytes # (auto) 1.44 K/uL (1.2-3.4); Lymphocytes % (auto) 22.3 %; Mean Corpuscular Volume 97.7 fL (80-100); Mean Platelet Volume 9.4 fL (7.4-10.4); Monocytes # (auto) 0.87 K/uL (0.11-0.59); Monocytes % (auto) 13.5 %; Neutrophils # (auto) 3.86 K/uL (1.4-6.5); Neutrophils % (auto) 59.9 %; Platelet Count 137 K/uL (130-400); RDW Coefficient of Variation 14.7 % (11.5-14.5); Red Blood Count 3.92 M/uL (4.7-6.1); White Blood Count 6.45 K/uL (4.8-10.8)
[2018-05-03 06:45] LABS: INR 1.3 (0.9-1.1); Prothrombin Time 12.8 Seconds (9.0-12.0)
[2018-05-03 07:08] LABS: Albumin Level 3.2 gm/dl (3.4-5.0); BUN Creatinine Ratio 17.8 (10-20); Bilirubin Direct 0.3 mg/dl (0-0.2); Est GFR (African American) 94.5; Est GFR (Non-African American) 81.5; Potassium 3.2 mmol/L (3.5-5.1)
[2018-05-03 07:10] LABS: Bilirubin,Total 1.1 mg/dl (0.2-1); Total Protein 6.2 gm/dl (6.4-8.2)
[2018-05-03] MEDS ORDERED: POTASSIUM CHLORIDE 10 MEQ TABCR PO STA (08:55)
[2018-05-03] MEDS ORDERED: FOLIC ACID 1 MG TAB PO SCH (09:00)
[2018-05-03] MEDS ORDERED: ENOXAPARIN INJ 30 MG/0.3 ML SYR SQ SCH (09:00)
[2018-05-03] MEDS ORDERED: LOSARTAN/HCTZ 50/12.5MG TAB PO SCH (09:00)
[2018-05-03] MEDS ORDERED: MAGNESIUM OXIDE 400 MG TAB PO SCH (09:00)
[2018-05-03] MEDS ORDERED: ASPIRIN 81 MG ECTAB PO SCH (09:00)
--- NOTE | 2018-05-03 10:50 | Neurology Consultation ---
Date of Consultation May 03, 2018 Assessment & Plan (1) Acute encephalopathy: Patient has had the acute onset of encephalopathy (of a mild to moderate nature) May 02 and is markedly improved today. On examination he has no focal neurologic signs or meningeal signs. He does not seem to be encephalopathic or have a dementia on examination today. Etiology of this is likely secondary to hypertension (significant hypertension induced encephalopathy). Although I cannot entirely exclude this as a TIA I do not believe this diagnosis fits his clinical picture. He has no other signs of infection and has no metabolic abnormalities. His medications have not been changed and his alcohol level was 0 when he came to the emergency room. MRI of the brain was unremarkable and showed no acute stroke. There was some mild, nonspecific generalized atrophy and old small vessel ischemic changes. CT angiography of the head was unremarkable. 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 He also had 40% stenosis in the proximal right internal carotid artery. His MRI does not reflect significant strokes more so in the left hemisphere compared to the right. (3) Alcohol abuse: Patient has alcohol use which comma although not excessive on a daily basis, it is very regular over time and therefore significant. He has not had any symptoms to suggest withdrawal. (4) Hypertension: Patient has a significantly elevated blood pressure with wide pulse pressure. This likely indicates arterial noncompliance. Recommendations: 1. I agree with 81 mg aspirin tablet daily. 2. Given his age and overall condition, it would be in this patient's best interest to discontinue all alcohol use. 3. The patient could see a vascular surgeon regarding his left internal carotid artery as an outpatient. 4. Control blood pressure as you are doing the aiming for a mean arterial pressure of approximately 100 if possible. Unfortunately, in an effort to get his systolic pressure to a more reasonable levels, his diastolic pressure may go too low. 5. Increase activity as able. 6. I see no need for additional neurologic testing or treatment at this time. Please contact me if I can be of further assistance on this case. I suggest follow-up with his PCP. Overall, I spent a total of 115 minutes with this case including records review, review of MRI and CT films, direct evaluation the patient at bedside, and discussion of the case with the patient, clinical staff, and Dr. Castelan including differential diagnosis and treatment options. History of Present Illness Reason for Consultation: Patient is an 82-year-old, who I was asked to see the request Dr. Nickie Funk, for neurologic consultation regarding acute confusion Requesting Physician: Dr. Nickie Funk Attending Physician: Deejay Castelan, DO History of Present Illness Patient has a longstanding history of hypertension and is currently followed by Dr. Foreman. He has hepatic steatosis and alcohol use along with insomnia and anxiety. His outpatient chart also shows that he is on levothyroxine 25 mcg daily, but the patient does not believe he is on this. He has a history of insomnia and anxiety and takes lorazepam at bedtime. 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 He did well , and I did see him again in follow-up. Patient awoke May 02 feeling fine. He did not have a headache or illness. Somewhere around 9:00 a.m. he started having confusion. He noted that he could not figure out how to use the guide on the TV and he was not remembering some names and what pharmacy he used. This persisted for several hours and they decided to go to the emergency room. He did not have any headache, vision problems, speech problems, weakness, numbness, or pain. He did not have balance problems or incontinence. Sometime around midday, he had a 3-5 minute episode of sudden tingling in the right hand which then resolved and never recurred again. He arrived to the emergency room May 02 at 1603 with a temperature 37.0�, pulse 62 and regular, respiratory rate 20, blood pressure 213/69, and O2 saturation 99 percent. In the emergency room he was described as being somewhat confused but had no focal deficits. Patient himself recalls all events at home and in the emergency room. He felt that he had confusion yesterday but gradually it got better. This morning, he feels like he is better still but not quite back to baseline yet. CT scan of the head was unremarkable. Chest x-ray showed some mild cardiomegaly and COPD changes CT angiography of the head was unremarkable with no significant stenoses or vessel anomalies. CT angiography of the neck revealed 75% stenosis of the left internal carotid artery at the origin and 40% stenosis of the right proximal internal carotid artery. Laboratory studies were largely unremarkable although glucose was 110 and he had mild anemia on CBC. Calcium was mildly low and alk-phos and total bilirubin were elevated. A fasting lipid profile was quite normal. Urinalysis was unremarkable. MRI of the brain without contrast revealed no acute stroke. There was mild generalized atrophy and old small vessel ischemia of a nonspecific nature. Patient's blood pressures been treated in this morning has come down to 191/67. Allergies Allergy/AdvReac Type Severity Reaction Status Date / Time No Known Allergies Allergy Unverified 04/30/16 09:56 Home Medications Home Medications Medication Instructions Recorded Confirmed Type Unobtainable 05/02/18 05/02/18 History Patient History Medical History Hypertension Hepatic steatosis Hypothyroidism Insomnia Surgical History History of cataract surgery History of tonsillectomy Family History Mother , age 90 of uncertain causes. No problems noted. 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 Feels Safe at Home: Yes Safety Concerns: Feels Safe At This Time Smoking Status: Former smoker Hx Alcohol Use: Yes Hx Substance Use: No Review of Systems Constitutional: no fever, no fatigue and no weakness Eyes: no diplopia, no eye pain and no worsening vision Ear, Nose, Mouth, Throat: no ear pain, no tinnitus, no hearing loss and no dysphagia Respiratory: no cough and no dyspnea Cardiovascular: no chest pain, no dyspnea and no palpitations Gastrointestinal: no abdominal pain, no nausea and no vomiting Genitourinary (Male): + urinary frequency and + urinary urgency; no dysuria and no urinary incontinence Musculoskeletal: no back pain, no neck pain, no radicular pain, no myalgia, no muscle weakness and no muscle atrophy Integumentary: no rash and no lesions Neurologic: + confusion; no gait abnormality, no falls, no localized weakness, no generalized weakness, no tingling, no numbness, no tremor(s), no abnormal movements, no dizziness, no headache(s), no abnormal speech, no behavioral changes and no memory loss Psychiatric: + abnormal sleep pattern and + anxiety; no depression, no difficulty concentrating, no confusion and no hallucinations Endocrine: no fatigue and no flushing Hematologic / Lymphatic: no easy bleeding and no easy bruising Allergy / Immunological: no urticaria Physical Exam Vital Signs (Past 24 Hours): Last Vital Signs Temp 36.5 C 05/03/18 07:02 Pulse 54 L 05/03/18 07:02 Resp 18 05/03/18 07:02 BP 191/67 H 05/03/18 07:02 Pulse Ox 98 05/03/18 07:02 Physical Exam: The patient is right-handed. The patient is awake, alert, and attentive. Speech is normal without any aphasia or dysarthria. Mentation and thought processes are intact, with good o rientation and normal fund of knowledge. Attention and concentration are normal. Mood and affect are normal and appropriate. General appearance and grooming are normal. Short and long-term memory are intact to conversation at bedside. The discs are sharp with positive venous pulsations bilaterally. There are no exudates, hemorrhages, or blood vessel changes seen. Pupils are 3 mm bilaterally and reactive to light. Extraocular eye muscles are intact without nystagmus. Visual acuity and visual castorena seem normal grossly to confrontation. There are no deficits to sensation in the face in all 3 distributions of the fifth cranial nerve bilaterally. Corneal reflexes are positive bilaterally. Facial strength and symmetry was normal bilaterally. Hearing seems intact grossly to voice and finger rub bilaterally. Palate moves well without asymmetry. There is normal sternocleidomastoid and trapezius (shoulder shrug) strength bilaterally. Tongue is midline with good strength bilaterally. Neck has a full range of motion without discomfort. There was a significant left carotid bruit, not present on the right. There are no cranial or ocular bruits. Heart is without murmur. There is a regular rhythm and rate. Cervical, thoracic, and lumbar spine are nontender to palpation. Gait is slightly wide-based and cautious but reasonable in a straight line. Turns are cautious. Stance with eyes open is normal. With outstretched arms there is no drift. There are no resting, postural, or action tremors. There is no ataxia with finger to nose testing. There is good facility in the hands. No other abnormal involuntary movements are noted. Motor strength is 5/5 diffusely in the arms bilaterally including deltoids, biceps, triceps, brachioradialis, wrist flexors and extensors, hospitality aide, and int rinsic hand muscles. Motor strength is 5/5 diffusely in the legs bilaterally including hip flexors, quadriceps, hamstrings, gastrocnemius, tibialis anterior, tibialis posterior, and Peroneii muscles bilaterally. Toe extensors are normal and there is good bulk in the extensor digitorum brevis muscles bilaterally. The limbs have good tone without rigidity or spasticity. There is no focal atrophy noted in the muscles. Muscle bulk is normal, there is no tenderness to palpation, no myotonia to percussion, and no fasciculations seen. Sensory examination is intact to touch and pin throughout all 4 limbs diffusely. Reflexes are 1/4 in the biceps, triceps, brachioradialis, and quadriceps tendons bilaterally. Achilles tendon reflexes are absent bilaterally. Toes are downgoing with plantar stimulation bilaterally. Peripheral pulses are present and of normal quality distally in all 4 limbs. There is no peripheral edema noted in the limbs. Results & Data Diagnostic Findings MR brain wo con HISTORY: Mental status change confusion, stenosis of LICA, LA TECHNIQUE: Multiplanar multisequence MRI of the brain was performed without the use of contrast. COMPARISON STUDY: None. FINDINGS: Diffusion-weighted images show no evidence for an acute ischemic event. Moderate age-related atrophy and chronic small vessel change. The ventricular system is midline. The sella and parasellar regions are unremarkable. Internal artery canals are symmetric. IMPRESSION: No acute intracranial abnormality. Age-related atrophy and chronic small vessel change. The above report was generated using voice recognition software. It may contain grammatical, syntax or spelling errors. Electronically signed by: Napoleon Shaw M.D. 05/03/2018 5:55 AM
[2018-05-03] MEDS ORDERED: AMLODIPINE BESYLATE 5 MG TAB PO ONE ×2 (12:25→15:15)
[2018-05-03 12:40] LABS: Folate (Folic Acid) > 24.00 ng/ml (>5.38); Vitamin B12 665 pg/ml (211-911)
[2018-05-03] MEDS ORDERED: cloNIDine HCl 0.1 MG TAB PO ONE (15:15)
[2018-05-03] MEDS ORDERED: STROKE PATIENT DISCHARGE STA (16:19)
--- NOTE | 2018-05-03 16:35 | Discharge Summary ---
Date of Service May 03, 2018 Admission HPI Per Admitting Provider 82-year-old male with history of hypertension, AK I and hepatic steatosis and reported alcohol overuse in previous records who comes in with acute confusion. Patient states he was in his normal state of health as of this morning when he woke up, and then around 930 this morning he was trying to operate the television and could not. He states he became very confused and frustrated because he could not "figure out the TV". He and his decided together that EMS should be called. EMS brought him here. He was found to have a high blood pressure. Blood pressure was 213/69. He has received 2 doses of hydralazine 10 mg. His blood pressure is now 196/92. Patient states his confusion is about the same now. He also states he had a 5-minute episode of tingling in his right hand earlier today as well but this is since resolved. Of note patient states he drinks 2-3 bottles of light beer a day. His last drink was this morning with his breakfast. He states he does not have a pacemaker. Past medical history: Abnormal liver enzymes, alcohol abuse, anxiety, hypertension, hypothyroid Past surgical history: cataract, colonoscopy, tonsillectomy Home medications: Lorazepam 1 mg 2 tablets nightly, as needed during the day. Losartan hydrochlorothiazide 50-12.51 tablet twice daily, metoprolol 50 mg 1 tablet in the morning and a half in the evening. 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 Denies smoking or illicit drug use. States he drinks 2-3 bottles of lite beer per day. Principal Diagnosis hypertensive encephalopathy - resolved Discharge Exam pleasant nad heent nc at mmm lungs unlabored no accessory muscles good effort skin no rashes no pallor or icterus neuro - cn2-12 grossly intact gross motor and sensory intact ext - no c/c/e msk/ost - R sided posterior pelvic musculature high tone/tender/decreased ROM (region of piriformis) - LAS, direct stretching - improved, pt tolerated well. taught to stretch as well Discharge Data Allergies Allergy/AdvReac Type Severity Reaction Status Date / Time No Known Allergies Allergy Unverified 04/30/16 09:56 Consultations 05/02/18 19:08 ED Decision to Admit Stat 05/02/18 23:29 Consult Case Management - Discharge Planning Routine Consult Neurology Routine Ordered Studies 05/02/18 16:11 CT angio head w con Stat HEAD CT NONCONTRAST CT DOSE: HISTORY: Stroke symptoms. TECHNIQUE: Multiaxial CT images of the head were performed without the use of intravenous contrast. Automated exposure control was utilized for this study. A dose lowering technique was utilized adhering to the principles of ALARA. Comparison: None. Findings: The paranasal sinuses and mastoid air cells are clear. The calvarium and skull base are intact. There is no mass, hematoma, midline shift, acute infarct. White matter hypodensity is nonspecific but suggestive of microvascular ischemic change. The ventricles and sulci demonstrate mild age-related involutional changes. Impression: No acute intracranial abnormality. Atrophy and microvascular ischemic changes. CT angio neck with con Stat HEAD & NECK CTA HISTORY: Pt c/o confusion TECHNIQUE: Multiaxial CT images of the head were performed following the intravenous administration of contrast to evaluate the major cerebral vessels. Multiaxial CT images of the neck were also performed following the intravenous administration of contrast to evaluate the major cervical vessels. Maximum intensity projection images were also obtained. A dose lowering technique was utilized adhering to the principles of ALARA. COMPARISON: Head CT 05/02/2018. FINDINGS: There is no mass, hematoma, midline shift, or acute infarct. Visualized intracranial internal carotid arteries, distal vertebral arteries, and basilar artery are widely patent. There is no significant stenosis, occlusion, or aneurysm seen within the bilateral ACAs, MCAs, or senior qa analyst. Moderate calcified plaque within the bilateral carotid siphons. The major dural venous sinuses are patent. The distal right vertebral artery and bilateral senior qa analyst are slightly hypoplastic but patent. The aortic arch and proximal great vessels are widely patent. A 2.6 mm groundglass nodule within the right upper lobe. This does not meet CT criteria for follow-up. Moderate calcified plaque within the right carotid bulb resulting in approximately 40% stenosis proximally. Significant atherosclerotic plaque within the left carotid bulb resulting in up to 75% stenosis at the takeoff of the left internal carotid artery. This is best in image 205. Remaining proximal left internal carotid artery demonstrates approximately 60% stenosis. The mid to distal bilateral internal carotid arteries and bilateral common carotid arteries are patent. The right vertebral artery is slightly hypoplastic. 50-60% focal narrowing within the right vertebral artery due to mass effect from the facets at the C4-C5 level. Severe stenosis of approximately 90% within the right vertebral artery at the C5-C6 level also due to the mass effect from the degenerative change. IMPRESSION: 1. No significant stenosis, occlusion, or aneurysm within the [place]. 2. Approximately 75% focal stenosis at the takeoff of the left internal carotid artery. 3. Approximate 40% stenosis within the proximal right internal carotid artery. 4. Multifocal areas of narrowing within the right vertebral artery due to mass effect from the cervical spine degenerative change. CT head/brain wo con Stat 05/02/18 21:25 MR brain wo con Stat MR brain wo con HISTORY: Mental status change confusion, stenosis of LICA, LA TECHNIQUE: Multiplanar multisequence MRI of the brain was performed without the use of contrast. COMPARISON STUDY: None. FINDINGS: Diffusion-weighted images show no evidence for an acute ischemic event. Moderate age-related atrophy and chronic small vessel change. The ventricular system is midline. The sella and parasellar regions are unremarkable. Internal artery canals are symmetric. IMPRESSION: No acute intracranial abnormality. Age-related atrophy and chronic small vessel change. Lab Results 05/02/18 05/02/18 05/02/18 Range/Units 16:35 16:35 16:35 WBC 5.76 (4.8-10.8) K/uL RBC 3.92 L (4.7-6.1) M/uL Hgb 13.8 L (14.0-18.0) g/dL POC Hgb (14.0-18.0) g/dl Hct 38.6 L (42-52) % POC Hct (42-52) % MCV 98.5 (80-100) fL MCH 35.2 H (25-34) pg MCHC 35.8 (32-36) g/dL RDW Std Deviation 50.9 H (36.4-46.3) fL RDW Coeff of Randall 14.5 (11.5-14.5) % Plt Count 135 (130-400) K/uL MPV 9.4 (7.4-10.4) fL Immature Gran % (Auto) 0.2 % Neut % (Auto) 57.9 % Lymph % (Auto) 22.9 % [place]son % (Auto) 13.2 % Eos % (Auto) 4.9 % Baso % (Auto) 0.9 % Immature Gran # (Auto) 0.01 (0.00-0.02) K/uL Neut # (Auto) 3.34 (1.4-6.5) K/uL Lymph # (Auto) 1.32 (1.2-3.4) K/uL Anson # (Auto) 0.76 H (0.11-0.59) K/uL Eos # (Auto) 0.28 (0-0.5) K/uL Baso # (Auto) 0.05 (0-0.2) K/uL PT 13.0 H (9.0-12.0) Seconds INR 1.3 H (0.9-1.1) APTT 27.5 (21.0-31.0) Seconds PTT Ratio 1.0 POC Sodium (135-144) mEq/L Sodium 137 (136-145) mmol/L POC Potassium (3.3-5.0) mEq/L Potassium 3.5 (3.5-5.1) mmol/L POC Chloride (101-112) mEq/L Chloride 100 (98-107) mmol/L Carbon Dioxide 30 (21-32) mmol/L POC Total CO2 (24-31) mEq/l Anion Gap 7.0 (3-11) POC Anion Gap (16-25) mmol/L POC BUN (7-18) mg/dl BUN 22 H (7-18) mg/dl Creatinine 1.03 (0.6-1.4) mg/dl POC Creatinine (0.6-1.3) mg/dl Est Cr Clr Drug Dosing 57.1 ml/min Est GFR ( Amer) 78.0 Est GFR (Non-Af Amer) 67.3 BUN/Creatinine Ratio 21.0 H (10-20) Glucose 106 H (70-99) mg/dl POC Glucose (other) (70-99) mg/dl Calcium 8.4 L (8.5-10.1) mg/dl POC Ioniz Calcium Kitty (1.12-1.32) mmol/l Magnesium 1.7 L (1.8-2.4) mg/dl Total Bilirubin 0.9 (0.2-1) mg/dl Direct Bilirubin (0-0.2) mg/dl AST 25 (15-37) U/L ALT 36 (12-78) U/L Alkaline Phosphatase 153 H (45-117) U/L CK-MB (CK-2) 1.7 (0.5-3.6) ng/ml Troponin I < 0.015 (0-0.045) ng/ml Total Protein 6.7 (6.4-8.2) gm/dl Albumin 3.6 (3.4-5.0) gm/dl Globulin 3.1 (2.5-4.0) gm/dl Albumin/Globulin Ratio 1.2 (0.9-2) Triglycerides (0-150) mg/dl Cholesterol (0-200) mg/dl LDL Cholesterol, Calc mg/dl VLDL Cholesterol, Calc mg/dl HDL Cholesterol mg/dl Cholesterol/HDL Ratio Vitamin B12 (211-911) pg/ml Folate (>5.38) ng/ml Urine Color Urine Appearance (Clear) Urine pH (4.5-7.5) Ur Specific [place] (1.000-1.030) Urine Protein (Negative) Urine Glucose (UA) (Negative) Urine Ketones (Negative) Urine Blood (Negative) Urine Nitrite (Negative) Urine Bilirubin (Negative) Urine Urobilinogen (Negative) Ur Leukocyte Esterase (Negative) Urine WBC (Auto) (0-5) /hpf Urine RBC (Auto) (0-4) /hpf U Hyaline Cast (Auto) (0-5) /lpf U Epithel Cells (Auto) (0-5) /lpf Urine Bacteria (Auto) (Negative) Ethyl Alcohol mg/dL (0-3) mg/dl Influenza Type A (PCR) (Neg) Influenza Type B (PCR) (Neg) 05/02/18 05/02/18 05/02/18 Range/Units 16:42 17:00 17:35 WBC (4.8-10.8) K/uL RBC (4.7-6.1) M/uL Hgb (14.0-18.0) g/dL POC Hgb 12.9 L (14.0-18.0) g/dl Hct (42-52) % POC Hct 38 L (42-52) % MCV (80-100) fL MCH (25-34) pg MCHC (32-36) g/dL RDW Std Deviation (36.4-46.3) fL RDW Coeff of Randall (11.5-14.5) % Plt Count (130-400) K/uL MPV (7.4-10.4) fL Immature Gran % (Auto) % Neut % (Auto) % Lymph % (Auto) % [place]son % (Auto) % Eos % (Auto) % Baso % (Auto) % Immature Gran # (Auto) (0.00-0.02) K/uL Neut # (Auto) (1.4-6.5) K/uL Lymph # (Auto) (1.2-3.4) K/uL [place]son # (Auto) (0.11-0.59) K/uL Eos # (Auto) (0-0.5) K/uL Baso # (Auto) (0-0.2) K/uL PT (9.0-12.0) Seconds INR (0.9-1.1) APTT (21.0-31.0) Seconds PTT Ratio POC Sodium 140 (135-144) mEq/L Sodium (136-145) mmol/L POC Potassium 3.5 (3.3-5.0) mEq/L Potassium (3.5-5.1) mmol/L POC Chloride 95 L (101-112) mEq/L Chloride (98-107) mmol/L Carbon Dioxide (21-32) mmol/L POC Total CO2 28 (24-31) mEq/l Anion Gap (3-11) POC Anion Gap 21.0 (16-25) mmol/L POC BUN 22 H (7-18) mg/dl BUN (7-18) mg/dl Creatinine (0.6-1.4) mg/dl POC Creatinine 1.1 (0.6-1.3) mg/dl Est Cr Clr Drug Dosing ml/min Est GFR ( Amer) Est GFR (Non-Af Amer) BUN/Creatinine Ratio (10-20) Glucose (70-99) mg/dl POC Glucose (other) 110 H (70-99) mg/dl Calcium (8.5-10.1) mg/dl POC Ioniz Calcium Kitty 1.15 (1.12-1.32) mmol/l Magnesium (1.8-2.4) mg/dl Total Bilirubin (0.2-1) mg/dl Direct Bilirubin (0-0.2) mg/dl AST (15-37) U/L ALT (12-78) U/L Alkaline Phosphatase (45-117) U/L CK-MB (CK-2) (0.5-3.6) ng/ml Troponin I (0-0.045) ng/ml Total Protein (6.4-8.2) gm/dl Albumin (3.4-5.0) gm/dl Globulin (2.5-4.0) gm/dl Albumin/Globulin Ratio (0.9-2) Triglycerides (0-150) mg/dl Cholesterol (0-200) mg/dl LDL Cholesterol, Calc mg/dl VLDL Cholesterol, Calc mg/dl HDL Cholesterol mg/dl Cholesterol/HDL Ratio Vitamin B12 (211-911) pg/ml Folate (>5.38) ng/ml Urine Color Yellow Urine Appearance Cloudy H (Clear) Urine pH 6.5 (4.5-7.5) Ur Specific [place] 1.011 (1.000-1.030) Urine Protein Negative (Negative) Urine Glucose (UA) Negative (Negative) Urine Ketones Negative (Negative) Urine Blood Negative (Negative) Urine Nitrite Negative (Negative) Urine Bilirubin Negative (Negative) Urine Urobilinogen Negative (Negative) Ur Leukocyte Esterase Negative (Negative) Urine WBC (Auto) 0 (0-5) /hpf Urine RBC (Auto) 0-4 (0-4) /hpf U Hyaline Cast (Auto) 0 (0-5) /lpf U Epithel Cells (Auto) 0-5 (0-5) /lpf Urine Bacteria (Auto) Negative (Negative) Ethyl Alcohol mg/dL (0-3) mg/dl Influenza Type A (PCR) Neg for Influ A (Neg) Influenza Type B (PCR) Neg for Influ B (Neg) 05/02/18 05/03/18 05/03/18 Range/Units 20:13 06:15 06:15 WBC 6.45 (4.8-10.8) K/uL RBC 3.92 L (4.7-6.1) M/uL Hgb 13.4 L (14.0-18.0) g/dL POC Hgb (14.0-18.0) g/dl Hct 38.3 L (42-52) % POC Hct (42-52) % MCV 97.7 (80-100) fL MCH 34.2 H (25-34) pg MCHC 35.0 (32-36) g/dL RDW Std Deviation 52.0 H (36.4-46.3) fL RDW Coeff of Randall 14.7 H (11.5-14.5) % Plt Count 137 (130-400) K/uL MPV 9.4 (7.4-10.4) fL Immature Gran % (Auto) 0.3 % Neut % (Auto) 59.9 % Lymph % (Auto) 22.3 % [place] % (Auto) 13.5 % Eos % (Auto) 3.7 % Baso % (Auto) 0.3 % Immature Gran # (Auto) 0.02 (0.00-0.02) K/uL Neut # (Auto) 3.86 (1.4-6.5) K/uL Lymph # (Auto) 1.44 (1.2-3.4) K/uL [place] # (Auto) 0.87 H (0.11-0.59) K/uL Eos # (Auto) 0.24 (0-0.5) K/uL Baso # (Auto) 0.02 (0-0.2) K/uL PT 12.8 H (9.0-12.0) Seconds INR 1.3 H (0.9-1.1) APTT (21.0-31.0) Seconds PTT Ratio POC Sodium (135-144) mEq/L Sodium (136-145) mmol/L POC Potassium (3.3-5.0) mEq/L Potassium (3.5-5.1) mmol/L POC Chloride (101-112) mEq/L Chloride (98-107) mmol/L Carbon Dioxide (21-32) mmol/L POC Total CO2 (24-31) mEq/l Anion Gap (3-11) POC Anion Gap (16-25) mmol/L POC BUN (7-18) mg/dl BUN (7-18) mg/dl Creatinine (0.6-1.4) mg/dl POC Creatinine (0.6-1.3) mg/dl Est Cr Clr Drug Dosing ml/min Est GFR ( Amer) Est GFR (Non-Af Amer) BUN/Creatinine Ratio (10-20) Glucose (70-99) mg/dl POC Glucose (other) (70-99) mg/dl Calcium (8.5-10.1) mg/dl POC Ioniz Calcium Kitty (1.12-1.32) mmol/l Magnesium (1.8-2.4) mg/dl Total Bilirubin (0.2-1) mg/dl Direct Bilirubin (0-0.2) mg/dl AST (15-37) U/L ALT (12-78) U/L Alkaline Phosphatase (45-117) U/L CK-MB (CK-2) (0.5-3.6) ng/ml Troponin I (0-0.045) ng/ml Total Protein (6.4-8.2) gm/dl Albumin (3.4-5.0) gm/dl Globulin (2.5-4.0) gm/dl Albumin/Globulin Ratio (0.9-2) Triglycerides (0-150) mg/dl Cholesterol (0-200) mg/dl LDL Cholesterol, Calc mg/dl VLDL Cholesterol, Calc mg/dl HDL Cholesterol mg/dl Cholesterol/HDL Ratio Vitamin B12 (211-911) pg/ml Folate (>5.38) ng/ml Urine Color Urine Appearance (Clear) Urine pH (4.5-7.5) Ur Specific [place] (1.000-1.030) Urine Protein (Negative) Urine Glucose (UA) (Negative) Urine Ketones (Negative) Urine Blood (Negative) Urine Nitrite (Negative) Urine Bilirubin (Negative) Urine Urobilinogen (Negative) Ur Leukocyte Esterase (Negative) Urine WBC (Auto) (0-5) /hpf Urine RBC (Auto) (0-4) /hpf U Hyaline Cast (Auto) (0-5) /lpf U Epithel Cells (Auto) (0-5) /lpf Urine Bacteria (Auto) (Negative) Ethyl Alcohol mg/dL < 3.0 (0-3) mg/dl Influenza Type A (PCR) (Neg) Influenza Type B (PCR) (Neg) 05/03/18 05/03/18 Range/Units 06:15 06:15 WBC (4.8-10.8) K/uL RBC (4.7-6.1) M/uL Hgb (14.0-18.0) g/dL POC Hgb (14.0-18.0) g/dl Hct (42-52) % POC Hct (42-52) % MCV (80-100) fL MCH (25-34) pg MCHC (32-36) g/dL RDW Std Deviation (36.4-46.3) fL RDW Coeff of [place] (11.5-14.5) % Plt Count (130-400) K/uL MPV (7.4-10.4) fL Immature Gran % (Auto) % Neut % (Auto) % Lymph % (Auto) % [place] % (Auto) % Eos % (Auto) % Baso % (Auto) % Immature Gran # (Auto) (0.00-0.02) K/uL Neut # (Auto) (1.4-6.5) K/uL Lymph # (Auto) (1.2-3.4) K/uL [place] # (Auto) (0.11-0.59) K/uL Eos # (Auto) (0-0.5) K/uL Baso # (Auto) (0-0.2) K/uL PT (9.0-12.0) Seconds INR (0.9-1.1) APTT (21.0-31.0) Seconds PTT Ratio POC Sodium (135-144) mEq/L Sodium 141 (136-145) mmol/L POC Potassium (3.3-5.0) mEq/L Potassium 3.2 L (3.5-5.1) mmol/L POC Chloride (101-112) mEq/L Chloride 108 H (98-107) mmol/L Carbon Dioxide 28 (21-32) mmol/L POC Total CO2 (24-31) mEq/l Anion Gap 5.0 (3-11) POC Anion Gap (16-25) mmol/L POC BUN (7-18) mg/dl BUN 15 (7-18) mg/dl Creatinine 0.84 (0.6-1.4) mg/dl POC Creatinine (0.6-1.3) mg/dl Est Cr Clr Drug Dosing 70.0 ml/min Est GFR ( Amer) 94.5 Est GFR (Non-Af Amer) 81.5 BUN/Creatinine Ratio 17.8 (10-20) Glucose 93 (70-99) mg/dl POC Glucose (other) (70-99) mg/dl Calcium 8.0 L (8.5-10.1) mg/dl POC Ioniz Calcium Kitty (1.12-1.32) mmol/l Magnesium (1.8-2.4) mg/dl Total Bilirubin 1.1 H (0.2-1) mg/dl Direct Bilirubin 0.3 H (0-0.2) mg/dl AST 26 (15-37) U/L ALT 37 (12-78) U/L Alkaline Phosphatase 135 H (45-117) U/L CK-MB (CK-2) (0.5-3.6) ng/ml Troponin I (0-0.045) ng/ml Total Protein 6.2 L (6.4-8.2) gm/dl Albumin 3.2 L (3.4-5.0) gm/dl Globulin (2.5-4.0) gm/dl Albumin/Globulin Ratio (0.9-2) Triglycerides 102 (0-150) mg/dl Cholesterol 148 (0-200) mg/dl LDL Cholesterol, Calc 74 mg/dl VLDL Cholesterol, Calc 20 mg/dl HDL Cholesterol 54 mg/dl Cholesterol/HDL Ratio 3 Vitamin B12 665 (211-911) pg/ml Folate > 24.00 (>5.38) ng/ml Urine Color Urine Appearance (Clear) Urine pH (4.5-7.5) Ur Specific [place] (1.000-1.030) Urine Protein (Negative) Urine Glucose (UA) (Negative) Urine Ketones (Negative) Urine Blood (Negative) Urine Nitrite (Negative) Urine Bilirubin (Negative) Urine Urobilinogen (Negative) Ur Leukocyte Esterase (Negative) Urine WBC (Auto) (0-5) /hpf Urine RBC (Auto) (0-4) /hpf U Hyaline Cast (Auto) (0-5) /lpf U Epithel Cells (Auto) (0-5) /lpf Urine Bacteria (Auto) (Negative) Ethyl Alcohol mg/dL (0-3) mg/dl Influenza Type A (PCR) (Neg) Influenza Type B (PCR) (Neg) Hospital Course (1) Acute encephalopathy: Resolved Most likely was brought on by hypertensive urgency (see below) (2) Hypertensive urgency: Uncertain level of baseline control. Noncompliance definitely appears to be an issue, the medications he told me he was on were different than what he was listed as being on in his outpatient records, and what he told us was also different than what he ended up having in his bag. Even with his home meds he was still uncontrolled, 10 mg of amlodipine added. His symptoms resolved, and given that he was asymptomatic with blood pressures heading in the right direction, no focal neuro deficits, and on and off threatening to leave AGAINST MEDICAL ADVICE, as well as concern of whether or not he would go into alcohol withdrawal, the decision was made to discharge him home with close outpatient follow-up in a controlled fashion with appropriate medical recommendations, rather than allowing the risk of him leaving against advice without instructions/medications/direction/follow-up, reducing the risk of him having significant alcohol withdrawal (3) Elevated alkaline phosphatase level: Other related to alcohol abuse or DJD, outpatient follow-up (4) Alcohol abuse: Outpatient follow-up Added thiamine and folate (5) 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 Started him on aspirin 81 mg daily, and gave strong consideration to atorvastatin or rosuvastatin. I decided to defer the statin decision to his PCP, who knows him much better, because of his alcohol abuse and overall low lipids off of medic ation, it was not entirely clear that the risks (liver related and/or hyper suppressing his lipids leading to increased risk of intracranial bleeding) would be outweighed by the benefits. Certainly looking at him as just a carotid artery stenosis would warrant statin, but looking at him in the big picture, and knowing that he will PPC follow in short order, I opted to defer this to his PCPs judgment for now. -outpt referral for vascular surgery eval requested (6) Anxiety: (7) Hypertension: See above, he is to follow blood pressures frequently and multiple times a day over the next week, and review readings with his PCP. Total Time Total Time Spent Total Time Spent (In Minutes): >30 Discharge Plan Discharge Items Patient Disposition: Home - Self-Care Reason For Visit: CONFUSION, TIA WORKUP Discharge Diagnosis: confusion - likely from very elevated blood pressure Discharge Goals: Diagnostic testing and Therapeutic intervention Activity: Resume your previous activity Non-emergency contact: Primary Care Provider Call non-emergency contact if: you have any medication questions and your symptoms worsen Follow-up/Referrals: Pro,Nicolas Weaver MD [Primary Care Provider] - Diet: Regular Addtl Provider Instructions: confusion -while most situations of confusion like you had often go away without a clear "smoking gun," as elevated as your blood pressures were, the most likely culprit was a form of what we call a "hypertensive urgency" - where the elevated pressures cause a degree of brain swelling, which in it's mildest form can cause a nonspecific "i'm not quite right" and as things get more severe frequently would appear as a headache and blurred vision, and finally full-on confusion -we definitely need to get your blood pressures in line --> for now we're starting amlodipine 10mg daily (typical range to treat blood pressure is 5-10mg daily) -- if it were to cause side effects what you would notice is feeling weak/lightheaded when you first stand up, or noticing a new swelling in your feet/ankles. if either of those were to occur, talk w Dr Foreman, as there are many different options to go with for bringing pressures down - we just opted to start with this because it's generally "clean" (fairly low on side effects) and typically does a pretty good job of lowering pressures -follow your blood pressures at home - get an automatic cuff and check multiple times a day, randomly. review the readings with Dr Foreman so that he can guide you on further treatment adjustments -as far as the "why now" of your elevated pressure, as we discussed, there are several possibilities: -one is that your pressures normally run a bit high, and it "just happens" that when you're in the office, we happen to see the best of your readings, rather than the "most" or "average" of your readings (ie "if you don't take a temperature, you can't find a fever" -- or saying that since most of the time you wouldn't feel elevated pressures, you could be running high more often than not and just not know it) -another is that your current run of hip pain is causing elevations in pressure - pain will turn on your fight or flight nervous system, and part of the fight or flight response is elevation of pressures -it doesn't appear in any overt way that something medical is going on to provoke this - your kidney function looks stable, thyroid levels just a few months ago were good, and blood counts are basically on the [id number] side of normal. with all of that, the usual problems that can medically provoke elevations in blood pressure appear to not be there -take your regular blood pressure medicine twice a day (both the losartan/HCTZ and the metoprolol), and then take the amlodipine 5mg daily on top of it -we'll work on follow up with Dr Foreman later this coming week to see how things are going -check your blood pressures at home several times a day, fairly randomly, to review with Dr Foreman hip pain -your hip pain appears to be caused by a tight muscle called piriformis - it runs from the outside of your hip bone (greater trochanter) to your tailbone (sacrum) -- it is a common muscle to get strained, and in the fall you had it appears that it did get strained. -we did some gentle manipulation to try to loosen it while you were here -do the stretches (knee to chest and then across your body so that you feel it pulling some in your hip and buttock) twice a day to try to loosen it further -in another week or two, if it's not improving, have Dr Foreman refer you over to another of our colleagues Dr Marshall Keene, who does a lot of hands-on techniques to loosen exactly this kind of problem (it would likely do better for you / get you better faster than just physical therapy) carotid artery stenosis -incidentally we found that your carotid artery on the left had a 75% blockage. this would generally result in right sided stroke like symptoms (right sided droop of the face, slurred speech, right arm/leg numbness or weakness) --- so it might have been a culprit for the right hand tingling you felt, although it would not have been a culprit for the confusion/not feeling right that was the main set of symptoms that brought you in -to protect you from potential damage from this: -we've added an 81mg aspirin a day -we definitely want to get blood pressures under better control (ideally to under 130/85 or so, as long as you can tolerate being treated to those ranges) -we'll ask Dr Foreman to weigh the risks/benefits of atorvastatin or rosuvastatin -- your actual cholesterol numbers are about at goal to protect that artery, but atorvastatin and rosuvastatin will stabilize the plaque that is already in arteries and make them less likely to rupture; more than likely he'll want to start it, but since we're starting the blood pressure medicine today, and that is of higher urgency, i wanted to quickly make moves, but just as much "one at a time" as we can -it is a tight enough blockage to warrant consideration of getting it cleaned out surgically - we'll ask that you have a referral to at least talk with a surgeon about that alcohol -as dr foreman has discussed before, you really would help yourself if you reduce or quit drinking. right now your liver doesn't appear inflamed, but it has in the past, and a few liver labs do show just the slightest bit of elevation. strongly consider this, and if you decide to quit entirely, talk more with Dr Foreman on what to watch for in regards to any potential withdrawal symptoms -for now, to protect your brain from ill effects, we've added thiamine and folic acid as supplements to take once a day Prescriptions: New thiamine HCl (vitamin B1) [Vitamin B-1] 100 mg Tablet 100 mg PO QAM Qty: 30 RF: 0 aspirin [Ecotrin Low Strength] 81 mg Tablet,Delayed Release (Dr/Ec) 81 mg PO QAM Qty: 30 RF: 0 folic acid 1 mg Tablet 1 mg PO QAM Qty: 30 RF: 0 amlodipine 10 mg tablet 10 mg PO DAILY Qty: 30 RF: 0 No Action Unobtainable RF: 0 Stand-Alone Forms: [facility] Discharge Orders: Discharge Order (Routine); Ordered 05/03/18 Ordered By: Deejay Castelan Admission Data Admit Date/Time: 05/02/18 21:15 Attending Provider: Deejay Castelan Admit Provider: Nickie Funk Primary Care Provider: Nicolas Foreman Other Providers: Prasad Carrington ; Conor Mullins ; Dylan Merrill III ; Kathie Flores ; Dalia Reyes ; Guanaco Kennedy Service: Telemetry Other Interventions: Discharge Summary Assessment (RN) Last Done: 05/03/18 16:13 DC Date/Time DO NOT enter until pt leaves facility: 05/03/18 16:25
[2018-05-04 06:28] LABS: Estimated Average Glucose 88 mg/dl; Hemoglobin A1C 4.7 % (4.5-5.6)
[2018-05-09] MEDS ORDERED: cloNIDine HCL 0.3 MG/24 HR TRANSDERM SYS TD SCH (09:00)
== END 2018-05-03 16:25 | disposition home or self-care (01) ==
LOC: ED 15:44 → 2E 21:15 → SUATTDRO 21:15 → 2E 22:48

== ENCOUNTER 2020-09-12 12:16 | Inpatient (IN) ==
[2020-09-12] MEDS ORDERED: LORazepam 2 MG/4 ML VIAL ONE (12:21)
[2020-09-12] MEDS ORDERED: SODIUM CHLORIDE 0.9% 1000ML 1,000 ML IV SCH ×2 (12:30→17:10)
[2020-09-12] MEDS ORDERED: LORazepam 1 MG/2 ML VIAL IV PRN (12:32)
[2020-09-12] MEDS ORDERED: OPTIRAY 320 125ml IV ONE (12:42)
[2020-09-12] MEDS ORDERED: MIDAZOLAM HCL 1 MG/ML 2ML VIAL IV STA (12:44)
[2020-09-12 12:49] LABS: Basophils # (auto) 0.03 K/uL (0-0.2); Basophils % (auto) 0.2 %; Eosinophils # (auto) 0.01 K/uL (0-0.5); Eosinophils % (auto) 0.1 %; Hematocrit (blood only) 40.9 % (42-52); Hemoglobin 14.7 g/dL (14.0-18.0); Immature Granulocytes # (auto) 0.04 K/uL (0.00-0.02); Immature Granulocytes % (auto) 0.3 %; Lymphocytes # (auto) 1.34 K/uL (1.2-3.4); Lymphocytes % (auto) 10.1 %; Mean Corpuscular Hemoglobin 33.2 pg (25-34); Mean Corpuscular Hgb Conc 35.9 g/dL (32-36); Mean Corpuscular Volume 92.3 fL (80-100); Mean Platelet Volume 9.3 fL (7.4-10.4); Monocytes # (auto) 1.37 K/uL (0.11-0.59); Monocytes % (auto) 10.3 %; Neutrophils # (auto) 10.54 K/uL (1.4-6.5); Platelet Count 184 K/uL (130-400); RDW Coefficient of Variation 14.3 % (11.5-14.5); RDW Standard Deviation 47.5 fL (36.4-46.3); Red Blood Count 4.43 M/uL (4.7-6.1); White Blood Count 13.33 K/uL (4.8-10.8)
[2020-09-12] MEDS ORDERED: HALOPERIDOL LACTATE 5 MG/ML 1 ML VIAL IM PRN (12:56)
[2020-09-12 13:02] LABS: INR 1.2 (0.9-1.1); Partial Thromboplastin Ratio 1.1; Partial Thromboplastin Time 28.5 Seconds (21.0-31.0); Prothrombin Time 12.4 Seconds (9.0-12.0)
[2020-09-12 13:05] LABS: Alanine Aminotransferase 27 U/L (12-78); Albumin Level 4.4 gm/dl (3.4-5.0); Aspartate Aminotransferase 48 U/L (15-37); BUN Creatinine Ratio 12.8 (10-20); Blood Urea Nitrogen 14 mg/dl (7-18); Calcium 9.1 mg/dl (8.5-10.1); Carbon Dioxide 23 mmol/L (21-32); Chloride 97 mmol/L (98-107); Est GFR (African American) 69.5 ml/min; Glucose 103 mg/dl (70-99); Magnesium 1.6 mg/dl (1.8-2.4); Potassium 3.4 mmol/L (3.5-5.1); Sodium 132 mmol/L (136-145)
--- NOTE | 2020-09-12 13:09 | CT Scan Report ---
CT head/brain wo con CLINICAL HISTORY: Stroke Like Symptoms COMPARISON STUDY: Head CT dated 05/02/2018, MRI the brain TECHNIQUE: Axial CT of the brain is performed from the vertex to the skull base. IV contrast was not administered for this examination. A dose lowering technique was utilized adhering to the principles of ALARA. CT DOSE: FINDINGS: No intra or extra-axial mass lesions are visualized. There is no CT evidence of acute cortical infarc tion. There is no evidence of midline shift. There is no acute hemorrhage. No calvarial fractures ar e visualized. There are patchy white matter hypodensities likely on a small vessel basis. 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 Motion degraded study 2. No acute intracranial findings. ACT 112: Negative or not required by law. Electronically signed by: Alton Shah M.D. 09/12/2020 1:07 PM
--- NOTE | 2020-09-12 13:09 | CT Scan Report ---
CT OF THE CERVICAL SPINE CLINICAL HISTORY: Neck pain status post trauma. COMPARISON STUDY: No previous studies for comparison. CT DOSE: TECHNIQUE: CT scan of the cervical spine was performed from the skull base to the thoracic inlet. Katie ges are reviewed in the axial, sagittal, and coronal planes. IV contrast was not administered for thi s examination. A dose lowering technique was utilized adhering to the principles of ALARA. FINDINGS: The visualized portions of the lung apices reveal no evidence of pneumothorax. The prevertebral soft tissues are normal. No fractures or subluxations are visualized. There are multilevel degenerative changes IMPRESSION: No evidence of acute fracture or traumatic subluxation. ACT 112: Negative or not required by law. Electronically signed by: Alton Shah M.D. 09/12/2020 1:08 PM
[2020-09-12 13:10] LABS: Albumin Globulin Ratio 1.3 (0.9-2); Alkaline Phosphatase 78 U/L (45-117); Bilirubin,Total 1.6 mg/dl (0.2-1); Globulin 3.5 gm/dl (2.5-4.0); Total Protein 7.9 gm/dl (6.4-8.2); Troponin I 0.038 ng/ml (0-0.045)
--- NOTE | 2020-09-12 13:14 | CT Scan Report ---
CTA ANGIOGRAPHY OF THE HEAD CLINICAL HISTORY: Stroke Like Symptoms COMPARISON STUDY: CTA of the head May 02, 2018. TECHNIQUE: Helical axial images of the head were obtained following uneventful intravenous administr ation of 120 cc of Optiray. Sagittal and coronal reconstructions were viewed as well as maximal inten sity projections on an independent 3-D workstation. Automated exposure control was utilized for the study. A dose lowering technique was utilized adhering to the principles of ALARA. CT DOSE: 2484.43 mGy.cm FINDINGS: Please note that the head CT will be reported separately. No acute intracranial hemorrhage, midline shift or mass effect is present. Ventricular system is stable. Basal cisterns are patent. Th ere are no extra-axial collections. There is extensive calcified plaque within the bilateral cavernou s carotids without significant stenosis. The bilateral M1, M2, A1 and A2 segments are patent. Left ve rtebral artery is dominant. Right vertebral artery is diminutive within the intracranial portion. Thi s is unchanged since prior CTA. No central vessel occlusion is identified. No intracranial aneurysm. There is no dissection within the intracranial vessels. IMPRESSION: No central vessel occlusion. No intracranial aneurysm. ACT 112: Negative or not required by law. Electronically signed by: Jeremiah Villaseñor M.D. 09/12/2020 1:12 PM
--- NOTE | 2020-09-12 13:23 | XRay Report ---
XR knee LT 1 or 2V routine CLINICAL HISTORY: trauma COMPARISON: None FINDINGS: Alignment of the left knee is anatomic. There is no acute fracture. There is no joint effu lisandra. Extensive vascular calcification is noted. IMPRESSION: No acute fracture or joint effusion of the left knee. ACT 112: Negative or not required by law. Electronically signed by: Jeremiah Villaseñor M.D. 09/12/2020 1:22 PM
[2020-09-12] MEDS ORDERED: MAGNESIUM SULFATE / D5W 1 GM/100 ML BAG IV STA (13:24)
--- NOTE | 2020-09-12 13:24 | XRay Report ---
XR pelvis 1-2V routine CLINICAL HISTORY: trauma COMPARISON: Pelvis and right hip radiographs December 10, 2018. FINDINGS: Incidental note is made of contrast within the mid to distal bilateral ureters and the félix dder from recent contrast-enhanced CT. No acute fracture is identified within the pelvis or hips. Sac roiliac joints and symphysis pubis are intact. IMPRESSION: No acute fracture within the pelvis or hips. ACT 112: Negative or not required by law. Electronically signed by: Jeremiah Villaseñor M.D. 09/12/2020 1:23 PM
--- NOTE | 2020-09-12 13:24 | XRay Report ---
XR chest 1V portable CLINICAL HISTORY: Stroke Like Symptoms COMPARISON STUDY: 05/02/2018 FINDINGS: The heart is mildly enlarged. Underlying pulmonary emphysema is suspected. There is increas ed density at the level the left cardiophrenic angle. This could represent visualization of a fat pad , small left pleural effusion, or minor left basilar atelectasis/consolidation. A follow-up PA and la teral study is recommended when the patient is clinically stable IMPRESSION: 1. Nonspecific opacity at the left lateral lung base. This could represent visualization of normal fa t pad, small left pleural effusion, or minor left basilar atelectasis/consolidation. A follow-up PA a nd lateral study is recommended when the patient is clinically stable ACT 112: Negative or not required by law. Electronically signed by: Alton Shah M.D. 09/12/2020 1:23 PM
--- NOTE | 2020-09-12 13:25 | XRay Report ---
XR humerus RT 2V CLINICAL HISTORY: Right humeral pain status post trauma COMPARISON: None. DISCUSSION: No acute fractures or dislocations are visualized. IMPRESSION: No fractures or dislocations identified. ACT 112: Negative or not required by law. Electronically signed by: Alton Shah M.D. 09/12/2020 1:24 PM
--- NOTE | 2020-09-12 13:35 | CT Scan Report ---
CT angio neck with con CLINICAL HISTORY: Stroke Like Symptoms COMPARISON STUDY: May 02, 2018 TECHNIQUE: CT angiography was performed from the aortic arch to the skull base. MIP imaging was perfo rmed. The patient was scanned in a dynamic helical fashion during intravenous administration of 120 c c of Optiray. A dose lowering technique was utilized adhering to the principles of ALARA. CT DOSE: Technique: CT angiogram of the carotid and vertebral arteries was obtained using intravenous contrast and 3-D reconstruction. NASCET criteria was utilized. Findings: This is limited exam due to motion artifact. Right common carotid artery is tortuous with short retrotracheal course at the region of thoracic inl et. Heavy partially calcified plaques are seen within bilateral carotid bulbs with possible significant s tenosis however evaluation is limited due to motion artifact and dense calcifications creating bloomi ng artifact. Significant stenosis is seen within proximal left internal carotid artery during prior s tudy. Right and left internal carotid arteries are patent with concentric calcified plaques within cavernos al and supraclinoid portion which shows less than 50% stenosis. Left predominant vertebral circulation is seen. Right and left vertebral arteries are extremely tortu ous. There is approximately 50% stenosis within V4 segment of the left vertebral artery which appears similar to prior study. Mild diffuse narrowing of the V4 segment of the right vertebral artery is unchanged since prior study . Interval development of severe, approximately above 80% stenosis within foraminal portion of the righ t vertebral artery at the level of C4 which could be due to prominent osteophytes (serious 10 image 1 98). No evidence of focal occlusion or dissection is seen. IMPRESSION: 1. Interval development of significant stenosis within foraminal portion of the right vertebral rey ry as detailed above. Evaluation is limited due to motion artifact. Report will be called to emergenc y department during time of this dictation. 2. Prominent atherosclerotic involvement of bilateral carotid and vertebral arteries as detailed abo ve. Limited evaluation due to motion artifact. ACT 112: Positive. There are findings on this exam that require communication between the performing entity and the patient following Patient Test Result Information Act ([place] Act 112) guidelines. The above report was generated using voice recognition software. It may contain grammatical, syntax o r spelling errors. Electronically signed by: Opal Donald DO 09/12/2020 1:34 PM
[2020-09-12] MEDS ORDERED: CEFEPIME 2,000 MG/20 ML VIAL IV STA (13:51)
[2020-09-12] MEDS ORDERED: ACETAMINOPHEN 1,000 MG/100 ML VIAL IV STA (13:51)
[2020-09-12] MEDS ORDERED: THIAMINE HCL 500 MG in 0.9 % SODIUM CHLORIDE 100 ML IV STA (14:02)
[2020-09-12 14:18] LABS: Amphetamines+Metham, Urine Neg (Neg); Barbiturates, Urine Neg (Neg); Benzodiazepine, Urine Pos (Neg); Cocaine, Urine Neg (Neg); MDMA (Ecstacy), Urine Neg (Neg); Methadone, Urine Neg (Neg); Opiate, Urine Neg (Neg); Phencyclidine, Urine Neg (Neg)
[2020-09-12 14:43] LABS: Appearance Urine Clear (Clear); Bacteria Urine Automated Negative (Negative); Bilirubin Urine Negative (Negative); Blood Urine 2+ (Negative); Color Urine Yellow; Epithelial Cell Urine Auto 20-30 /lpf (0-5); Glucose Urine UA Negative (Negative); Ketones Urine 1+ (Negative); Leukocyte Esterase Urine Negative (Negative); Nitrite Urine Negative (Negative); Protein Urine 2+ (Negative); Specific Gravity Urine 1.031 (1.000-1.030); Urobilinogen Urine Negative (Negative)
[2020-09-12] MEDS ORDERED: POTASSIUM CHLORIDE / WTR 10 MEQ/100 ML PLCT IV STA (14:52)
--- NOTE | 2020-09-12 14:53 | History & Physical Report ---
Date of Service September 12, 2020 Assessment & Plan (1) Confusion: Plan: 84yo male presenting with confusion/agitation. Etiology uncertain. Febrile with leukocytosis ?infection. ?agitated delirium ?encephalitis ?withdrawal - states that patient no longer drinks EtOH - he does have PO Ativan at home PRN - possibly Benzo withdrawal ? 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 -Consider Vascular surgery consultation when acute issues resolve (3) Hypertension: Plan: Blood pressure mildly elevated -Continue Losartan/HCTZ -Continue to monitor -Management of agitation/delirium as above (4) Hepatic steatosis: Plan: Chronic. Ammonia level is WNL -Repeat LFTs in AM (5) Fever: Plan: Tm of 38 while in ER. Unclear source -Follow cultures -Empiric Cefepime (6) Elevated CK: Plan: NSS x 2 liters -Repeat CK in AM History of Present Illness Chief Complaint: confusion Primary Care Provider: MD Dr. Joshua Riggs is an 84yo male with history of HTN, Hypothyroidism and carotid disease presenting with confusion. Patient is unable to provide details of events prior to arrival. History obtained through chart review, discussion with ER attending and later discussion with at bedside. Patient lives at home with his and they have neighbors that check in on them periodically. 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 They called 911. EMS reports patient was agitated, flailing about and not following commands - he received Ativan 1 mg IV en route to [facility]. Upon arrival patient was agitated, flailing and yelling. He received additional 2mg of Ativan then 2mg ov Versed, 5mg of Haldol with good effect. Patient became febrile to 38 while in ER. at bedside later. She states that patient is typically quite rational. He becomes forgetful at times but she denies any underlying dementia. She states that her has "gone mad". She states that he hasn't slept well for days. He has fallen several times over the last few days, most recently was today when he experienced some minor head trauma. She reports that yesterday he took a short nap in the morning and again in the afternoon. She said he woke up and reported feeling very tired and he was acting strangely. She states he was insisting that she take his socks off for him when he wasn't wearing any socks. She said that as the day progressed he made less sense and became more agitated and confused. She does not think he has taken his medications for the last several days. She states that he does not drink EtOH or use any recreational drugs. No sick contacts, no recent travel, no tick exposure. No new medications. does not believe patient had a NUNEZ, CP, SOB, cough, abdominal pain, nausea, vomiting, diarrhea, rash ER Course: Ativan 2mg, Versed 2mg, Haldol 5mg, NSS, Mg x 1gm, Tylenol, Thiamine, Cefepime Allergies Allergy/AdvReac Type Severity Reaction Status Date / Time No Known Drug Allergies Allergy Verified 07/07/20 10:39 Home Medications Medication Instructions Recorded Confirmed Type aspirin 81 mg tablet,delayed 81 mg PO QAM #30 tab 05/03/18 07/07/20 Rx release (Ecotrin Low Strength) vitamins A,C,K-mflh-syrsky 14,320 1 cap PO BID #60 cap 08/05/18 07/07/20 Rx unit-226 mg-200 unit capsule (PreserVision AREDS) coenzyme Q10 100 mg capsule 100 mg PO DAILY 12/14/18 07/07/20 History rosuvastatin 5 mg tablet (Crestor) 5 mg PO DAILY #90 tab 09/28/19 09/12/20 Rx metoprolol tartrate 50 mg tablet 50 mg PO BID #135 tab 10/12/19 09/12/20 Rx naproxen sodium 220 mg tablet See Rx Instructions PO DAILY PRN 07/07/20 07/07/20 History (Aleve) tab lorazepam 1 mg tablet (Ativan) 1 mg PO .COMPLEX PRN 09/12/20 09/12/20 History losartan 50 mg-hydrochlorothiazide 1 tab PO BID 09/12/20 09/12/20 History 12.5 mg tablet (Hyzaar) Past Med/Surg History Medical History (Updated 09/12/20 @ 20:23 by Aminah Lee DO) Hepatic steatosis Hypertension Hypothyroidism Insomnia Surgical History History of cataract surgery History of colonoscopy History of tonsillectomy Family History Mother , age 90 of uncertain causes. Anxiety Father , age 55 of pulmonary disease and alcoholism Lung disease Sister Kidney stone Denies family history of Ovarian cancer Prostate cancer Myocardial infarction Breast cancer Colorectal cancer Social History Smoking Status: Never smoker Tobacco Type: Cigarettes Age Started Using Tobacco: 20; Age Quit Using Tobacco: 60; Cigarettes Per Day: social smoker, off and on; Second Hand Exposure: No; Do You Dip or Chew Tobacco: No; Tobacco Cessation Education Requested by Patient: No Hx Alcohol Use: No Hx Substance Use: No Preferred Language: Greenlandic Communication Ability: Impaired Visual Impairment: No Limitations Hearing Ability: Normal 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 Feels Safe at Home: No Childhood Exposure to Second-Hand Smoke: Yes Dental Care, Regularly: No Physical Activity Frequency: Does not Exercise Seatbelt Use: always Sunscreen Use: No Assistive Devices: Glasses Review of Systems Review of Systems: Unobtainable due to cognitive status Physical Exam Physical Exam: General: patient sedated after receiving Haldol/Versed/Ativan, withdraws from noxious stimuli Skin: warm, dry, intact, multiple bruises on arms, legs, left groin HEENT: NC/AT, PERRL, anicteric sclera, conjunctiva without injection, external ear normal to inspection and nontender, nares patent, moist mucus membranes, no oropharyngeal lesions, neck supple, trachea midline, no LAD, no thyromegaly, no JVD Heart: +S1/S2, regular, no m/r/g Lungs: equal air entry bilaterally, no rales/rhonchi/wheezes anteriorly Abd: +BS, soft, NT/ND, no masses/organomegaly/ascites Ext: warm, 2+ pulses in UE/LE bilaterally, no clubbing/cyanosis or edema Neuro: sedated, withdraws 4 extremities from pain, PERRL Results & Data Results & Data ([facility]) Vital Signs (Past 12 Hours) Vital Signs Temp Pulse Pulse Resp BP Pulse Ox 09/12/20 14:31 61 14 118/67 99 09/12/20 14:01 69 14 138/53 L 95 09/12/20 13:04 88 18 159/70 H 95 09/12/20 12:26 38 C H 98 H 18 94 Laboratory Results Laboratory Results WBC 13.33 K/uL (4.8-10.8) H 09/12/20 12:32 RBC 4.43 M/uL (4.7-6.1) L 09/12/20 12:32 Hgb 14.7 g/dL (14.0-18.0) 09/12/20 12:32 Hct 40.9 % (42-52) L 09/12/20 12:32 MCV 92.3 fL (80-100) 09/12/20 12:32 MCH 33.2 pg (25-34) 09/12/20 12:32 MCHC 35.9 g/dL (32-36) 09/12/20 12:32 RDW Std Deviation 47.5 fL (36.4-46.3) H 09/12/20 12:32 RDW Coeff of [place] 14.3 % (11.5-14.5) 09/12/20 12:32 Plt Count 184 K/uL (130-400) 09/12/20 12:32 MPV 9.3 fL (7.4-10.4) 09/12/20 12:32 Immature Gran % (Auto) 0.3 % 09/12/20 12:32 Neut % (Auto) 79.0 % 09/12/20 12:32 Lymph % (Auto) 10.1 % 09/12/20 12:32 Blount % (Auto) 10.3 % 09/12/20 12:32 Eos % (Auto) 0.1 % 09/12/20 12:32 Baso % (Auto) 0.2 % 09/12/20 12:32 Neut # (Auto) 10.54 K/uL (1.4-6.5) H 09/12/20 12:32 Lymph # (Auto) 1.34 K/uL (1.2-3.4) 09/12/20 12:32 Blount # (Auto) 1.37 K/uL (0.11-0.59) H 09/12/20 12:32 Eos # (Auto) 0.01 K/uL (0-0.5) 09/12/20 12:32 Baso # (Auto) 0.03 K/uL (0-0.2) 09/12/20 12:32 Immature Gran # (Auto) 0.04 K/uL (0.00-0.02) H 09/12/20 12:32 PT 12.4 Seconds (9.0-12.0) H 09/12/20 12:32 INR 1.2 (0.9-1.1) H 09/12/20 12:32 APTT 28.5 Seconds (21.0-31.0) 09/12/20 12:32 PTT Ratio 1.1 09/12/20 12:32 Sodium 132 mmol/L (136-145) L 09/12/20 12:32 Potassium 3.4 mmol/L (3.5-5.1) L 09/12/20 12:32 Chloride 97 mmol/L (98-107) L 09/12/20 12:32 Carbon Dioxide 23 mmol/L (21-32) 09/12/20 12:32 Anion Gap 13.0 (3-11) H 09/12/20 12:32 BUN 14 mg/dl (7-18) 09/12/20 12:32 Creatinine 1.12 mg/dl (0.6-1.4) 09/12/20 12:32 Est Cr Clr Drug Dosing Not Reportable 09/12/20 12:32 Est GFR ( Amer) 69.5 ml/min 09/12/20 12:32 Est GFR (Non-Af Amer) 60.0 ml/min 09/12/20 12:32 BUN/Creatinine Ratio 12.8 (10-20) 09/12/20 12:32 Glucose 103 mg/dl (70-99) H 09/12/20 12:32 POC Glucose 110 mg/dl (70-99) H 09/12/20 17:04 Lactate 2.4 mmol/L (0.4-2.0) H* 09/12/20 18:19 Calcium 9.1 mg/dl (8.5-10.1) 09/12/20 12:32 Phosphorus 2.1 mg/dl (2.5-4.9) L 09/12/20 18:15 Magnesium 1.6 mg/dl (1.8-2.4) L 09/12/20 12:32 Total Bilirubin 1.6 mg/dl (0.2-1) H 09/12/20 12:32 AST 48 U/L (15-37) H 09/12/20 12:32 ALT 27 U/L (12-78) 09/12/20 12:32 Alkaline Phosphatase 78 U/L (45-117) 09/12/20 12:32 Ammonia < 10.0 umol/L (11-32) L 09/12/20 13:24 Total Creatine Kinase 2734 U/L (39-308) H 09/12/20 18:15 Troponin I 0.038 ng/ml (0-0.045) 09/12/20 12:32 Total Protein 7.9 gm/dl (6.4-8.2) 09/12/20 12:32 Albumin 4.4 gm/dl (3.4-5.0) 09/12/20 12:32 Globulin 3.5 gm/dl (2.5-4.0) 09/12/20 12:32 Albumin/Globulin Ratio 1.3 (0.9-2) 09/12/20 12:32 Procalcitonin < 0.05 ng/ml (0-0.5) 09/12/20 18:15 Urine Color Yellow 09/12/20 13:50 Urine Appearance Clear (Clear) 09/12/20 13:50 Urine pH 7.0 (4.5-7.5) 09/12/20 13:50 Ur Specific [place] 1.031 (1.000-1.030) H 09/12/20 13:50 Urine Protein 2+ (Negative) H 09/12/20 13:50 Urine Glucose (UA) Negative (Negative) 09/12/20 13:50 Urine Ketones 1+ (Negative) H 09/12/20 13:50 Urine Blood 2+ (Negative) H 09/12/20 13:50 Urine Nitrite Negative (Negative) 09/12/20 13:50 Urine Bilirubin Negative (Negative) 09/12/20 13:50 Urine Urobilinogen Negative (Negative) 09/12/20 13:50 Ur Leukocyte Esterase Negative (Negative) 09/12/20 13:50 Urine WBC (Auto) 1-5 /hpf (0-5) 09/12/20 13:50 Urine RBC (Auto) 5-10 /hpf (0-4) H 09/12/20 13:50 U Hyaline Cast (Auto) 1-5 /lpf (0-5) 09/12/20 13:50 U Epithel Cells (Auto) 20-30 /lpf (0-5) H 09/12/20 13:50 Urine Bacteria (Auto) Negative (Negative) 09/12/20 13:50 Urine Opiates Screen Neg (Neg) 09/12/20 13:50 Ur Methadone, Qual Neg (Neg) 09/12/20 13:50 Urine Barbiturates Neg (Neg) 09/12/20 13:50 Ur Phencyclidine (PCP) Neg (Neg) 09/12/20 13:50 U Amphetamin/Meth Scrn Neg (Neg) 09/12/20 13:50 MDMA (Ecstasy) Screen Neg (Neg) 09/12/20 13:50 U Benzodiazepines Scrn Pos (Neg) H 09/12/20 13:50 Ur Cocaine Metabolite Neg (Neg) 09/12/20 13:50 U Marijuana (THC) Screen Neg (Neg) 09/12/20 13:50 Ethyl Alcohol mg/dL < 3.0 mg/dl (0-3) 09/12/20 13:25 COVID-19 Eval Order Covid19 at [facility] 09/12/20 14:25 SARS-CoV-2 (PCR) NEGATIVE (Negative) 09/12/20 14:25 Impressions Humerus X-Ray 09/12/20 12:22 XR humerus RT 2V CLINICAL HISTORY: Right humeral pain status post trauma COMPARISON: None. DISCUSSION: No acute fractures or dislocations are visualized. IMPRESSION: No fractures or dislocations identified. ACT 112: Negative or not required by law. Electronically signed by: Alton Shah M.D. 09/12/2020 1:24 PM Knee X-Ray 09/12/20 12:22 XR knee LT 1 or 2V routine CLINICAL HISTORY: trauma COMPARISON: None FINDINGS: Alignment of the left knee is anatomic. There is no acute fracture. There is no joint effusion. Extensive vascular calcification is noted. IMPRESSION: No acute fracture or joint effusion of the left knee. ACT 112: Negative or not required by law. Electronically signed by: Jeremiah Villaseñor M.D. 09/12/2020 1:22 PM Chest X-Ray 09/12/20 12:23 XR chest 1V portable CLINICAL HISTORY: Stroke Like Symptoms COMPARISON STUDY: 05/02/2018 FINDINGS: The heart is mildly enlarged. Underlying pulmonary emphysema is suspected. There is increased density at the level the left cardiophrenic angle. This could represent visualization of a fat pad, small left pleural effusion, or minor left basilar atelectasis/consolidation. A follow-up PA and lateral study is recommended when the patient is clinically stable IMPRESSION: 1. Nonspecific opacity at the left lateral lung base. This could represent visualization of normal fat pad, small left pleural effusion, or minor left basilar atelectasis/consolidation. A follow-up PA and lateral study is recommended when the patient is clinically stable ACT 112: Negative or not required by law. Electronically signed by: Alton Shah M.D. 09/12/2020 1:[address] 09/12/20 12:23 CT head/brain wo con CLINICAL HISTORY: Stroke Like Symptoms COMPARISON STUDY: Head CT dated 05/02/2018, MRI the brain TECHNIQUE: Axial CT of the brain is performed from the vertex to the skull base. IV contrast was not administered for this examination. A dose lowering technique was utilized adhering to the principles of ALARA. CT DOSE: FINDINGS: No intra or extra-axial mass lesions are visualized. There is no CT evidence of acute cortical infarction. There is no evidence of midline shift. There is no acute hemorrhage. No calvarial fractures are visualized. There are patchy white matter hypodensities likely on a small vessel basis. 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 Motion degraded study 2. No acute intracranial findings. ACT 112: Negative or not required by law. Electronically signed by: Alton Shah M.D. 09/12/2020 1:07 PM Head CTA 09/12/20 12:23 CTA ANGIOGRAPHY OF THE HEAD CLINICAL HISTORY: Stroke Like Symptoms COMPARISON STUDY: CTA of the head May 02, 2018. TECHNIQUE: Helical axial images of the head were obtained following uneventful intravenous administration of 120 cc of Optiray. Sagittal and coronal reconstructions were viewed as well as maximal intensity projections on an independent 3-D workstation. Automated exposure control was utilized for the study. A dose lowering technique was utilized adhering to the principles of ALARA. CT DOSE: 2484.43 mGy.cm FINDINGS: Please note that the head CT will be reported separately. No acute intracranial hemorrhage, midline shift or mass effect is present. Ventricular system is stable. Basal cisterns are patent. There are no extra-axial collections. There is extensive calcified plaque within the bilateral cavernous carotids without significant stenosis. The bilateral M1, M2, A1 and A2 segments are patent. Left vertebral artery is dominant. Right vertebral artery is diminutive within the intracranial portion. This is unchanged since prior CTA. No central vessel occlusion is identified. No intracranial aneurysm. There is no dissection within the intracranial vessels. IMPRESSION: No central vessel occlusion. No intracranial aneurysm. ACT 112: Negative or not required by law. Electronically signed by: Jeremiah Villaseñor M.D. 09/12/2020 1:12 PM Neck CTA 09/12/20 12:23 CT angio neck with con CLINICAL HISTORY: Stroke Like Symptoms COMPARISON STUDY: May 02, 2018 TECHNIQUE: CT angiography was performed from the aortic arch to the skull base. MIP imaging was performed. The patient was scanned in a dynamic helical fashion during intravenous administration of 120 cc of Optiray. A dose lowering technique was utilized adhering to the principles of ALARA. CT DOSE: Technique: CT angiogram of the carotid and vertebral arteries was obtained using intravenous contrast and 3-D reconstruction. NASCET criteria was utilized. Findings: This is limited exam due to motion artifact. Right common carotid artery is tortuous with short retrotracheal course at the region of thoracic inlet. Heavy partially calcified plaques are seen within bilateral carotid bulbs with possible significant stenosis however evaluation is limited due to motion artifact and dense calcifications creating blooming artifact. Significant stenosis is seen within proximal left internal carotid artery during prior study. Right and left internal carotid arteries are patent with concentric calcified plaques within cavernosal and supraclinoid portion which shows less than 50% stenosis. Left predominant vertebral circulation is seen. Right and left vertebral arteries are extremely tortuous. There is approximately 50% stenosis within V4 segment of the left vertebral artery which appears similar to prior study. Mild diffuse narrowing of the V4 segment of the right vertebral artery is unchanged since prior study. Interval development of severe, approximately above 80% stenosis within foraminal portion of the right vertebral artery at the level of C4 which could be due to prominent osteophytes (serious 10 image 198). No evidence of focal occlusion or dissection is seen. IMPRESSION: 1. Interval development of significant stenosis within foraminal portion of the right vertebral artery as detailed above. Evaluation is limited due to motion artifact. Report will be called to emergency department during time of this dictation. 2. Prominent atherosclerotic involvement of bilateral carotid and vertebral arteries as detailed above. Limited evaluation due to motion artifact. ACT 112: Positive. There are findings on this exam that require communication between the performing entity and the patient following Patient Test Result Information Act ([place] Act 112) guidelines. The above report was generated using voice recognition software. It may contain grammatical, syntax or spelling errors. Electronically signed by: Opal Donald DO 09/12/2020 1:[address] 09/12/20 12:25 CT OF THE CERVICAL SPINE CLINICAL HISTORY: Neck pain status post trauma. COMPARISON STUDY: No previous studies for comparison. CT DOSE: TECHNIQUE: CT scan of the cervical spine was performed from the skull base to the thoracic inlet. Images are reviewed in the axial, sagittal, and coronal planes. IV contrast was not administered for this examination. A dose lowering technique was utilized adhering to the principles of ALARA. FINDINGS: The visualized portions of the lung apices reveal no evidence of pneumothorax. The prevertebral soft tissues are normal. No fractures or subluxations are visualized. There are multilevel degenerative changes IMPRESSION: No evidence of acute fracture or traumatic subluxation. ACT 112: Negative or not required by law. Electronically signed by: Alton Shah M.D. 09/12/2020 1:08 PM Pelvis X-Ray 09/12/20 12:25 XR pelvis 1-2V routine CLINICAL HISTORY: trauma COMPARISON: Pelvis and right hip radiographs December 10, 2018. FINDINGS: Incidental note is made of contrast within the mid to distal bilateral ureters and the bladder from recent contrast-enhanced CT. No acute fracture is identified within the pelvis or hips. Sacroiliac joints and symphysis pubis are intact. IMPRESSION: No acute fracture within the pelvis or hips. ACT 112: Negative or not required by law. Electronically signed by: Jeremiah Villaseñor M.D. 09/12/2020 1:23 PM ECG Additional Comments: Test Reason : Blood Pressure : / mmHG Vent. Rate : 079 BPM Atrial Rate : 080 BPM P-R Int : 000 ms QRS Dur : 096 ms QT Int : 454 ms P-R-T Axes : 000 023 033 degrees QTc Int : 520 ms Poor data quality, interpretation may be adversely affected Probable Sinus rhythm with 1st degree A-V block Blocked Premature atrial complexes Poor R wave progression, consider anterior [place] vs. lead placement vs. 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
--- NOTE | 2020-09-12 15:26 | Emergency Department Note ---
History of Present Illness General Chief complaint: Altered Mental Status Stated complaint: Altered Mental Status Source: EMS Mode of arrival: EMS Limitations: altered mental status History of Present Illness Provider complaint: ams Onset (ago): unknown Maximum Pain Intensity: 0 This is an 84-year-old male brought in by EMS for altered mental status. Per EMS report, neighbors came to check on the patient and his and found the patient on the floor, confused and agitated. On EMS arrival, patient was moving all 4 extremities but was confused, uncooperative, agitated. Would not cooperate for obtaining vital signs, they could not obtain any history from the patient or from his who also seemed confused and agitated on scene. They state the house was in significant disrepair. Police were also on scene and were attempting to talk to the as well as neighbors who are present and to collect any known medications or additional information. Patient was borderline tachycardic prehospital at 100-1 01, the did have a prehospital glucose of 115. They cannot otherwise obtain vital signs and initially called for orders to give the patient Ativan to help calm him enough to get vitals and obtain IV access. On arrival to the emergency room, patient was slightly more calm, still awake but confused, uncooperative and would not follow commands. No other additional history at that time. Upon obtaining a name we were able to look the patient up in system to look at prior past medical history and medications. I did asked the behavioral health case manager to attempt to contact police so I can speak with them regarding the situation on scene as well as the patient's as the patient was not competent to make any medical decisions at this time. Pt seen during a time of high acuity and national emergency pandemic while wearing PPE. Home Medications Medication Instructions Recorded Confirmed Type aspirin 81 mg tablet,delayed 81 mg PO QAM #30 tab 05/03/18 07/07/20 Rx release (Ecotrin Low Strength) vitamins A,C,N-fpwp-bpalkl 14,320 1 cap PO BID #60 cap 08/05/18 07/07/20 Rx unit-226 mg-200 unit capsule (PreserVision AREDS) coenzyme Q10 100 mg capsule 100 mg PO DAILY 12/14/18 07/07/20 History rosuvastatin 5 mg tablet (Crestor) 5 mg PO DAILY #90 tab 09/28/19 09/12/20 Rx metoprolol tartrate 50 mg tablet 50 mg PO BID #135 tab 10/12/19 09/12/20 Rx naproxen sodium 220 mg tablet See Rx Instructions PO DAILY PRN 07/07/20 07/07/20 History (Aleve) tab lorazepam 1 mg tablet (Ativan) 1 mg PO .COMPLEX PRN 09/12/20 09/12/20 History losartan 50 mg-hydrochlorothiazide 1 tab PO BID 09/12/20 09/12/20 History 12.5 mg tablet (Hyzaar) Allergies Allergy/AdvReac Type Severity Reaction Status Date / Time No Known Drug Allergies Allergy Verified 07/07/20 10:39 Past Med/Surg History Medical History (Updated 09/13/20 @ 20:22 by Ann Bean DO) Hepatic steatosis Hypertension Hypothyroidism Insomnia Surgical History History of cataract surgery History of colonoscopy History of tonsillectomy Family History Mother , age 90 of uncertain causes. Anxiety Father , age 55 of pulmonary disease and alcoholism Lung disease Sister Kidney stone Denies family history of Ovarian cancer Prostate cancer Myocardial infarction Breast cancer Colorectal cancer Social History Smoking Status: Never smoker Tobacco Type: Cigarettes Age Started Using Tobacco: 20; Age Quit Using Tobacco: 60; Cigarettes Per Day: social smoker, off and on; Second Hand Exposure: No; Do You Dip or Chew Tobacco: No; Tobacco Cessation Education Requested by Patient: No Hx Alcohol Use: No Hx Substance Use: No Preferred Language: Swedish Communication Ability: Impaired Visual Impairment: No Limitations Hearing Ability: Normal Account Director Required: No Beliefs That Will Affect Care: None marital status: Current Living Situation: Spouse Current Living Situation Comment: lives at home with . 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 Feels Safe at Home: No Childhood Exposure to Second-Hand Smoke: Yes Dental Care, Regularly: No Physical Activity Frequency: Does not Exercise Seatbelt Use: always Sunscreen Use: No Assistive Devices: Glasses Review of Systems Unobtainable due to cognitive status Physical Exam Vital Signs Vital Signs - 24 hr 09/12/20 12:26 09/12/20 13:04 09/12/20 14:01 Temperature 38 C H Temperature Source Rectal Pulse Rate 98 H Pulse Rate [Apical] 88 69 Respiratory Rate 18 18 14 Blood Pressure [Left Arm] 159/70 H 138/53 L Blood Pressure Mean [Left Arm] 99 81 Pulse Oximetry 94 95 95 Oxygen Delivery Method Room Air Room Air Room Air Oxygen Flow Rate Sepsis Recent Fever Within 48 Hours No Sepsis New/Unexplained Change in Mental Status Yes Sepsis Action Taken by Nursing No Action Required 09/12/20 14:31 Temperature Temperature Source Pulse Rate Pulse Rate [Apical] 61 Respiratory Rate 14 Blood Pressure [Left Arm] 118/67 Blood Pressure Mean [Left Arm] 84 Pulse Oximetry 99 Oxygen Delivery Method Nasal Cannula Oxygen Flow Rate 2 Sepsis Recent Fever Within 48 Hours Sepsis New/Unexplained Change in Mental Status Sepsis Action Taken by Nursing GENERAL: alert, unwell appearing, well nourished, agitated, would not follow commands HEAD: nc/at, no vu sign, no raccoon eyes, no evidence of facial trauma EYE EXAM: normal conjunctiva, PERRL and EOM's grossly intact OROPHARYNX: no exudate, no erythema, lips, buccal mucosa, and tongue normal and mucous membranes are dry, poor dentition NECK: supple, no nuchal rigidity, no adenopathy, non-tender LUNGS: Clear to auscultation. Normal chest wall mechanics, no w/r/r CHEST WALL: No crepitus, no evidence of trauma HEART: no murmurs, S1 normal and S2 normal ABDOMEN: abdomen soft, non-tender, normo-active bowel sounds, no masses, no r ebound or guarding. No evidence of trauma. BACK: Back is symmetrical on inspection and there is no deformity, no midline tenderness, no CVA tenderness. SKIN: no rashes or petechiae, scattered areas of contusion/ecchymosis noted to upper extremity lower extremities and back UPPER EXTREMITIES: upper extremities are grossly normal. FROM, nml pulses b/l. LOWER EXTREMITIES: No pitting edema. FROM, nml pulses b/l. NEURO EXAM: Patient confused, combative, agitated, would not follow commands, mumbling, occasionally can answer yes/no however still seems inappropriate to questions posed, picking at IV site Course Administered Medications HCTZ/Losartan Potassium (Losartan/Hctz 50/12.5mg Tab) 1 tab PO BID LEONIDES Stop: 10/12/20 20:59 Last Admin: 09/13/20 09:55 Dose: Not Given Documented by: [id number] Admin: 09/12/20 20:25 Dose: 1 tab Documented by: [id number] Cefepime HCl 2,000 mg/ Syringe 20 mls @ 5 mls/min IV Q8H LEONIDES; Protocol Stop: 09/14/20 21:59 Last Admin: 09/13/20 14:06 Dose: 5 mls/min Documented by: [id number] Admin: 09/13/20 05:42 Dose: 5 mls/min Documented by: [id number] Admin: 09/12/20 22:41 Dose: 5 mls/min Documented by: [id number] Potassium Chloride 40 meq/ (Sodium Chloride) 1,020 mls @ 100 mls/hr IV .[id number] LEONIDES Stop: 10/13/20 07:44 Last Admin: 09/13/20 10:25 Dose: 100 mls/hr Documented by: [id number] Discontinued Medications Haloperidol Lactate (Haloperidol Lactate 5 Mg/Ml 1 Ml Vial) 5 mg IM NOW PRN PRN Reason: Agitation Stop: 10/12/20 12:55 Last Admin: 09/12/20 13:09 Dose: 5 mg Documented by: [id number] Haloperidol Lactate (Haloperidol Lactate 5 Mg/Ml 1 Ml Vial) 5 mg IM NOW STA Stop: 09/12/20 17:30 Last Admin: 09/12/20 17:51 Dose: 5 mg Documented by: [id number] Sodium Chloride (Nss 1000ml) 1,000 mls @ 125 mls/hr IV .Q8H LEONIDES Stop: 10/12/20 12:29 Last Infusion: 09/12/20 17:16 Dose: 0 mls/hr Documented by: [id number] Admin: 09/12/20 13:57 Dose: 125 mls/hr Documented by: [id number] Lorazepam (Ativan) 1 mg in 2 mls @ 0.5 mls/min IV UD PRN PRN Reason: Agitation Stop: 10/12/20 12:31 Last Admin: 09/12/20 16:05 Dose: 0.5 mls/min Documented by: [id number] Magnesium Sulfate/Dextrose (Magnesium Sulfate / D5w) 1 gm in 100 mls @ 100 mls/hr IV NOW STA Stop: 09/12/20 14:23 Last Infusion: 09/12/20 15:28 Dose: 0 mls/hr Documented by: [id number] Admin: 09/12/20 13:57 Dose: 100 mls/hr Documented by: [id number] Acetaminophen (Ofirmev) 1,000 mg in 100 mls @ 400 mls/hr IV NOW STA Stop: 09/12/20 14:05 Last Infusion: 09/12/20 15:28 Dose: 0 mls/hr Documented by: [id number] Admin: 09/12/20 14:31 Dose: 400 mls/hr Documented by: [id number] Cefepime HCl (Maxipime) 2,000 mg in 20 mls @ 5 mls/min IV NOW STA Stop: 09/12/20 13:54 Last Admin: 09/12/20 15:32 Dose: 5 mls/min Documented by: [id number] Thiamine HCl 500 mg/ Sodium (Chloride) 105 mls @ 210 mls/hr IV NOW STA Stop: 09/12/20 14:31 Last Infusion: 09/12/20 15:29 Dose: 0 mls/hr Documented by: [id number] Admin: 09/12/20 14:50 Dose: 210 mls/hr Documented by: [id number] Potassium Chloride (K Faheem / Wtr) 10 meq in 100 mls @ 100 mls/hr IV Q1H STA Stop: 09/12/20 15:51 Last Infusion: 09/12/20 17:16 Dose: 0 mls/hr Documented by: [id number] Admin: 09/12/20 15:32 Dose: 100 mls/hr Documented by: [id number] Magnesium Sulfate/Dextrose (Magnesium Sulfate / D5w) 1 gm in 100 mls @ 50 mls/hr IV ONE ONE Stop: 09/12/20 19:29 Last Infusion: 09/12/20 20:54 Dose: 0 mls/hr Documented by: [id number] Admin: 09/12/20 18:24 Dose: 50 mls/hr Documented by: [id number] Sodium Chloride (Nss 1000ml) 1,000 mls @ 80 mls/hr IV .[id number] LEONIDES Stop: 09/13/20 05:39 Last Infusion: 09/12/20 22:40 Dose: 0 mls/hr Documented by: [id number] Admin: 09/12/20 17:46 Dose: 80 mls/hr Documented by: [id number] Multivitamins 10 ml/ Thiamine HCl 100 mg/ Folic Acid 1 mg/Sodium Chloride 1,011.2 mls @ 1,011.2 mls/hr IV .Q1H ONE Stop: 09/12/20 18:29 Last Infusion: 09/12/20 20:11 Dose: 0 mls/hr Documented by: [id number] Admin: 09/12/20 18:18 Dose: 1,011.2 mls/hr Documented by: [id number] Sodium Chloride (Nss 1000ml) 1,000 mls @ 125 mls/hr IV .Q8H LEONIDES Stop: 09/13/20 12:44 Last Infusion: 09/13/20 08:11 Dose: 0 mls/hr Documented by: [id number] Admin: 09/13/20 04:12 Dose: 125 mls/hr Documented by: [id number] Infusion: 09/13/20 04:12 Dose: 125 mls/hr Documented by: [id number] Admin: 09/12/20 22:41 Dose: 125 mls/hr Documented by: [id number] Ioversol (Optiray 320 125ml) 120 ml IV ONCE ONE Stop: 09/12/20 12:43 Last Admin: 09/12/20 12:43 Dose: 120 ml Documented by: [id number] Lorazepam (Lorazepam 2 Mg/4 Ml Vial) Confirm Administered Dose 2 mg .ROUTE .STK- MED ONE Stop: 09/12/20 12:22 Last Admin: 09/12/20 12:50 Dose: 2 mg Documented by: [id number] Midazolam HCl (Midazolam Hcl 1 Mg/Ml 2ml Vial) 2 mg IV NOW STA Stop: 09/12/20 12:45 Last Admin: 09/12/20 12:55 Dose: 2 mg Documented by: [id number] Critical Care Time Critical Care Time: Yes Total Critical Care Time: 75 Critical care of 75 min performed to assess and manage high likelihood of life- threatening altered mental status involving labs and imaging performed with assessment to evaluate altered mental status diagnosis with frequent reassessment. This time includes bedside time, treatment discussions with patient/family/consultants, documentation time and excludes procedure time. Medical Decision Making Differential Diagnosis Differential diagnoses includes but is not limited to toxic, metabolic, infectious, traumatic, cardiac, neurologic, hematologic, psychiatric and inflammatory etiologies. Medical Records Attestation: I reviewed the patient's medical records. Home Medications Current Medication List: was personally reviewed by me Laboratory Data Attestation: I reviewed the patient's lab results. Result diagrams: 09/13/20 06:19 09/13/20 06:19 Lab Results 09/12/20 09/12/20 09/12/20 Range/Units 12:32 12:32 12:32 WBC 13.33 H (4.8-10.8) K/uL RBC 4.43 L (4.7-6.1) M/uL Hgb 14.7 (14.0-18.0) g/dL Hct 40.9 L (42-52) % MCV 92.3 (80-100) fL MCH 33.2 (25-34) pg MCHC 35.9 (32-36) g/dL RDW Std Deviation 47.5 H (36.4-46.3) fL RDW Coeff of Randall 14.3 (11.5-14.5) % Plt Count 184 (130-400) K/uL MPV 9.3 (7.4-10.4) fL Immature Gran % (Auto) 0.3 % Neut % (Auto) 79.0 % Lymph % (Auto) 10.1 % [place] % (Auto) 10.3 % Eos % (Auto) 0.1 % Baso % (Auto) 0.2 % Neut # (Auto) 10.54 H (1.4-6.5) K/uL Lymph # (Auto) 1.34 (1.2-3.4) K/uL [place] # (Auto) 1.37 H (0.11-0.59) K/uL Eos # (Auto) 0.01 (0-0.5) K/uL Baso # (Auto) 0.03 (0-0.2) K/uL Immature Gran # (Auto) 0.04 H (0.00-0.02) K/uL PT 12.4 H (9.0-12.0) Seconds INR 1.2 H (0.9-1.1) APTT 28.5 (21.0-31.0) Seconds PTT Ratio 1.1 Sodium 132 L (136-145) mmol/L Potassium 3.4 L (3.5-5.1) mmol/L Chloride 97 L (98-107) mmol/L Carbon Dioxide 23 (21-32) mmol/L Anion Gap 13.0 H (3-11) BUN 14 (7-18) mg/dl Creatinine 1.12 (0.6-1.4) mg/dl Est Cr Clr Drug Dosing Not Reportable Est GFR ( Amer) 69.5 ml/min Est GFR (Non-Af Amer) 60.0 ml/min BUN/Creatinine Ratio 12.8 (10-20) Glucose 103 H (70-99) mg/dl Lactate (0.4-2.0) mmol/L Calcium 9.1 (8.5-10.1) mg/dl Magnesium 1.6 L (1.8-2.4) mg/dl Total Bilirubin 1.6 H (0.2-1) mg/dl AST 48 H (15-37) U/L ALT 27 (12-78) U/L Alkaline Phosphatase 78 (45-117) U/L Ammonia (11-32) umol/L Troponin I 0.038 (0-0.045) ng/ml Total Protein 7.9 (6.4-8.2) gm/dl Albumin 4.4 (3.4-5.0) gm/dl Globulin 3.5 (2.5-4.0) gm/dl Albumin/Globulin Ratio 1.3 (0.9-2) Urine Color Urine Appearance (Clear) Urine pH (4.5-7.5) Ur Specific [place]mot (1.000-1.030) Urine Protein (Negative) Urine Glucose (UA) (Negative) Urine Ketones (Negative) Urine Blood (Negative) Urine Nitrite (Negative) Urine Bilirubin (Negative) Urine Urobilinogen (Negative) Ur Leukocyte Esterase (Negative) Urine WBC (Auto) (0-5) /hpf Urine RBC (Auto) (0-4) /hpf U Hyaline Cast (Auto) (0-5) /lpf U Epithel Cells (Auto) (0-5) /lpf Urine Bacteria (Auto) (Negative) Urine Opiates Screen (Neg) Ur Methadone, Qual (Neg) Urine Barbiturates (Neg) Ur Phencyclidine (PCP) (Neg) U Amphetamin/Meth Scrn (Neg) MDMA (Ecstasy) Screen (Neg) U Benzodiazepines Scrn (Neg) Ur Cocaine Metabolite (Neg) U Marijuana (THC) Screen (Neg) Ethyl Alcohol mg/dL (0-3) mg/dl Lyme Disease IgG Ab (Negative) Lyme Disease IgM Ab (Negative) COVID-19 Eval Order SARS-CoV-2 (PCR) (Negative) 09/12/20 09/12/20 09/12/20 Range/Units 12:34 13:24 13:25 WBC (4.8-10.8) K/uL RBC (4.7-6.1) M/uL Hgb (14.0-18.0) g/dL Hct (42-52) % MCV (80-100) fL MCH (25-34) pg MCHC (32-36) g/dL RDW Std Deviation (36.4-46.3) fL RDW Coeff of Randall (11.5-14.5) % Plt Count (130-400) K/uL MPV (7.4-10.4) fL Immature Gran % (Auto) % Neut % (Auto) % Lymph % (Auto) % [place] % (Auto) % Eos % (Auto) % Baso % (Auto) % Neut # (Auto) (1.4-6.5) K/uL Lymph # (Auto) (1.2-3.4) K/uL [place] # (Auto) (0.11-0.59) K/uL Eos # (Auto) (0-0.5) K/uL Baso # (Auto) (0-0.2) K/uL Immature Gran # (Auto) (0.00-0.02) K/uL PT (9.0-12.0) Seconds INR (0.9-1.1) APTT (21.0-31.0) Seconds PTT Ratio Sodium (136-145) mmol/L Potassium (3.5-5.1) mmol/L Chloride (98-107) mmol/L Carbon Dioxide (21-32) mmol/L Anion Gap (3-11) BUN (7-18) mg/dl Creatinine (0.6-1.4) mg/dl Est Cr Clr Drug Dosing Est GFR ( Amer) ml/min Est GFR (Non-Af Amer) ml/min BUN/Creatinine Ratio (10-20) Glucose (70-99) mg/dl Lactate 2.7 H* (0.4-2.0) mmol/L Calcium (8.5-10.1) mg/dl Magnesium (1.8-2.4) mg/dl Total Bilirubin (0.2-1) mg/dl AST (15-37) U/L ALT (12-78) U/L Alkaline Phosphatase (45-117) U/L Ammonia < 10.0 L (11-32) umol/L Troponin I (0-0.045) ng/ml Total Protein (6.4-8.2) gm/dl Albumin (3.4-5.0) gm/dl Globulin (2.5-4.0) gm/dl Albumin/Globulin Ratio (0.9-2) Urine Color Urine Appearance (Clear) Urine pH (4.5-7.5) Ur Specific [place] (1.000-1.030) Urine Protein (Negative) Urine Glucose (UA) (Negative) Urine Ketones (Negative) Urine Blood (Negative) Urine Nitrite (Negative) Urine Bilirubin (Negative) Urine Urobilinogen (Negative) Ur Leukocyte Esterase (Negative) Urine WBC (Auto) (0-5) /hpf Urine RBC (Auto) (0-4) /hpf U Hyaline Cast (Auto) (0-5) /lpf U Epithel Cells (Auto) (0-5) /lpf Urine Bacteria (Auto) (Negative) Urine Opiates Screen (Neg) Ur Methadone, Qual (Neg) Urine Barbiturates (Neg) Ur Phencyclidine (PCP) (Neg) U Amphetamin/Meth Scrn (Neg) MDMA (Ecstasy) Screen (Neg) U Benzodiazepines Scrn (Neg) Ur Cocaine Metabolite (Neg) U Marijuana (THC) Screen (Neg) Ethyl Alcohol mg/dL (0-3) mg/dl Lyme Disease IgG Ab Negative (Negative) Lyme Disease IgM Ab Negative (Negative) COVID-19 Eval Order SARS-CoV-2 (PCR) (Negative) 09/12/20 09/12/20 09/12/20 Range/Units 13:25 13:50 13:50 WBC (4.8-10.8) K/uL RBC (4.7-6.1) M/uL Hgb (14.0-18.0) g/dL Hct (42-52) % MCV (80-100) fL MCH (25-34) pg MCHC (32-36) g/dL RDW Std Deviation (36.4-46.3) fL RDW Coeff of Randall (11.5-14.5) % Plt Count (130-400) K/uL MPV (7.4-10.4) fL Immature Gran % (Auto) % Neut % (Auto) % Lymph % (Auto) % [place] % (Auto) % Eos % (Auto) % Baso % (Auto) % Neut # (Auto) (1.4-6.5) K/uL Lymph # (Auto) (1.2-3.4) K/uL [place] # (Auto) (0.11-0.59) K/uL Eos # (Auto) (0-0.5) K/uL Baso # (Auto) (0-0.2) K/uL Immature Gran # (Auto) (0.00-0.02) K/uL PT (9.0-12.0) Seconds INR (0.9-1.1) APTT (21.0-31.0) Seconds PTT Ratio Sodium (136-145) mmol/L Potassium (3.5-5.1) mmol/L Chloride (98-107) mmol/L Carbon Dioxide (21-32) mmol/L Anion Gap (3-11) BUN (7-18) mg/dl Creatinine (0.6-1.4) mg/dl Est Cr Clr Drug Dosing Est GFR ( Amer) ml/min Est GFR (Non-Af Amer) ml/min BUN/Creatinine Ratio (10-20) Glucose (70-99) mg/dl Lactate (0.4-2.0) mmol/L Calcium (8.5-10.1) mg/dl Magnesium (1.8-2.4) mg/dl Total Bilirubin (0.2-1) mg/dl AST (15-37) U/L ALT (12-78) U/L Alkaline Phosphatase (45-117) U/L Ammonia (11-32) umol/L Troponin I (0-0.045) ng/ml Total Protein (6.4-8.2) gm/dl Albumin (3.4-5.0) gm/dl Globulin (2.5-4.0) gm/dl Albumin/Globulin Ratio (0.9-2) Urine Color Yellow Urine Appearance Clear (Clear) Urine pH 7.0 (4.5-7.5) Ur Specific [place] 1.031 H (1.000-1.030) Urine Protein 2+ H (Negative) Urine Glucose (UA) Negative (Negative) Urine Ketones 1+ H (Negative) Urine Blood 2+ H (Negative) Urine Nitrite Negative (Negative) Urine Bilirubin Negative (Negative) Urine Urobilinogen Negative (Negative) Ur Leukocyte Esterase Negative (Negative) Urine WBC (Auto) 1-5 (0-5) /hpf Urine RBC (Auto) 5-10 H (0-4) /hpf U Hyaline Cast (Auto) 1-5 (0-5) /lpf U Epithel Cells (Auto) 20-30 H (0-5) /lpf Urine Bacteria (Auto) Negative (Negative) Urine Opiates Screen Neg (Neg) Ur Methadone, Qual Neg (Neg) Urine Barbiturates Neg (Neg) Ur Phencyclidine (PCP) Neg (Neg) U Amphetamin/Meth Scrn Neg (Neg) MDMA (Ecstasy) Screen Neg (Neg) U Benzodiazepines Scrn Pos H (Neg) Ur Cocaine Metabolite Neg (Neg) U Marijuana (THC) Screen Neg (Neg) Ethyl Alcohol mg/dL < 3.0 (0-3) mg/dl Lyme Disease IgG Ab (Negative) Lyme Disease IgM Ab (Negative) COVID-19 Eval Order SARS-CoV-2 (PCR) (Negative) 09/12/20 09/12/20 Range/Units 14:25 14:25 WBC (4.8-10.8) K/uL RBC (4.7-6.1) M/uL Hgb (14.0-18.0) g/dL Hct (42-52) % MCV (80-100) fL MCH (25-34) pg MCHC (32-36) g/dL RDW Std Deviation (36.4-46.3) fL RDW Coeff of Randall (11.5-14.5) % Plt Count (130-400) K/uL MPV (7.4-10.4) fL Immature Gran % (Auto) % Neut % (Auto) % Lymph % (Auto) % [place] % (Auto) % Eos % (Auto) % Baso % (Auto) % Neut # (Auto) (1.4-6.5) K/uL Lymph # (Auto) (1.2-3.4) K/uL [place] # (Auto) (0.11-0.59) K/uL Eos # (Auto) (0-0.5) K/uL Baso # (Auto) (0-0.2) K/uL Immature Gran # (Auto) (0.00-0.02) K/uL PT (9.0-12.0) Seconds INR (0.9-1.1) APTT (21.0-31.0) Seconds PTT Ratio Sodium (136-145) mmol/L Potassium (3.5-5.1) mmol/L Chloride (98-107) mmol/L Carbon Dioxide (21-32) mmol/L Anion Gap (3-11) BUN (7-18) mg/dl Creatinine (0.6-1.4) mg/dl Est Cr Clr Drug Dosing Est GFR ( Amer) ml/min Est GFR (Non-Af Amer) ml/min BUN/Creatinine Ratio (10-20) Glucose (70-99) mg/dl Lactate (0.4-2.0) mmol/L Calcium (8.5-10.1) mg/dl Magnesium (1.8-2.4) mg/dl Total Bilirubin (0.2-1) mg/dl AST (15-37) U/L ALT (12-78) U/L Alkaline Phosphatase (45-117) U/L Ammonia (11-32) umol/L Troponin I (0-0.045) ng/ml Total Protein (6.4-8.2) gm/dl Albumin (3.4-5.0) gm/dl Globulin (2.5-4.0) gm/dl Albumin/Globulin Ratio (0.9-2) Urine Color Urine Appearance (Clear) Urine pH (4.5-7.5) Ur Specific [place] (1.000-1.030) Urine Protein (Negative) Urine Glucose (UA) (Negative) Urine Ketones (Negative) Urine Blood (Negative) Urine Nitrite (Negative) Urine Bilirubin (Negative) Urine Urobilinogen (Negative) Ur Leukocyte Esterase (Negative) Urine WBC (Auto) (0-5) /hpf Urine RBC (Auto) (0-4) /hpf U Hyaline Cast (Auto) (0-5) /lpf U Epithel Cells (Auto) (0-5) /lpf Urine Bacteria (Auto) (Negative) Urine Opiates Screen (Neg) Ur Methadone, Qual (Neg) Urine Barbiturates (Neg) Ur Phencyclidine (PCP) (Neg) U Amphetamin/Meth Scrn (Neg) MDMA (Ecstasy) Screen (Neg) U Benzodiazepines Scrn (Neg) Ur Cocaine Metabolite (Neg) U Marijuana (THC) Screen (Neg) Ethyl Alcohol mg/dL (0-3) mg/dl Lyme Disease IgG Ab (Negative) Lyme Disease IgM Ab (Negative) COVID-19 Eval Order Covid19 at [facility] SARS-CoV-2 (PCR) NEGATIVE (Negative) Imaging Data Radiologist's Impression: Humerus X-Ray 09/12/20 12:22 XR humerus RT 2V CLINICAL HISTORY: Right humeral pain status post trauma COMPARISON: None. DISCUSSION: No acute fractures or dislocations are visualized. IMPRESSION: No fractures or dislocations identified. ACT 112: Negative or not required by law. Electronically signed by: Alton Shah M.D. 09/12/2020 1:24 PM Knee X-Ray 09/12/20 12:22 XR knee LT 1 or 2V routine CLINICAL HISTORY: trauma COMPARISON: None FINDINGS: Alignment of the left knee is anatomic. There is no acute fracture. There is no joint effusion. Extensive vascular calcification is noted. IMPRESSION: No acute fracture or joint effusion of the left knee. ACT 112: Negative or not required by law. Electronically signed by: Jeremiah Villaseñor M.D. 09/12/2020 1:22 PM Chest X-Ray 09/12/20 12:23 XR chest 1V portable CLINICAL HISTORY: Stroke Like Symptoms COMPARISON STUDY: 05/02/2018 FINDINGS: The heart is mildly enlarged. Underlying pulmonary emphysema is suspected. There is increased density at the level the left cardiophrenic angle. This could represent visualization of a fat pad, small left pleural effusion, or minor left basilar atelectasis/consolidation. A follow-up PA and lateral study is recommended when the patient is clinically stable IMPRESSION: 1. Nonspecific opacity at the left lateral lung base. This could represent visualization of normal fat pad, small left pleural effusion, or minor left basilar atelectasis/consolidation. A follow-up PA and lateral study is recomme nded when the patient is clinically stable ACT 112: Negative or not required by law. Electronically signed by: Alton Shah M.D. 09/12/2020 1:[address] 09/12/20 12:23 CT head/brain wo con CLINICAL HISTORY: Stroke Like Symptoms COMPARISON STUDY: Head CT dated 05/02/2018, MRI the brain TECHNIQUE: Axial CT of the brain is performed from the vertex to the skull base. IV contrast was not administered for this examination. A dose lowering technique was utilized adhering to the principles of ALARA. CT DOSE: FINDINGS: No intra or extra-axial mass lesions are visualized. There is no CT evidence of acute cortical infarction. There is no evidence of midline shift. There is no acute hemorrhage. No calvarial fractures are visualized. There are patchy white matter hypodensities likely on a small vessel basis. 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 Motion degraded study 2. No acute intracranial findings. ACT 112: Negative or not required by law. Electronically signed by: Alton Shah M.D. 09/12/2020 1:07 PM Head CTA 09/12/20 12:23 CTA ANGIOGRAPHY OF THE HEAD CLINICAL HISTORY: Stroke Like Symptoms COMPARISON STUDY: CTA of the head May 02, 2018. TECHNIQUE: Helical axial images of the head were obtained following uneventful intravenous administration of 120 cc of Optiray. Sagittal and coronal reconstructions were viewed as well as maximal intensity projections on an independent 3-D workstation. Automated exposure control was utilized for the study. A dose lowering technique was utilized adhering to the principles of ALARA. CT DOSE: 2484.43 mGy.cm FINDINGS: Please note that the head CT will be reported separately. No acute intracranial hemorrhage, midline shift or mass effect is present. Ventricular system is stable. Basal cisterns are patent. There are no extra-axial collections. There is extensive calcified plaque within the bilateral cavernous carotids without significant stenosis. The bilateral M1, M2, A1 and A2 segments are patent. Left vertebral artery is dominant. Right vertebral artery is dimin utive within the intracranial portion. This is unchanged since prior CTA. No central vessel occlusion is identified. No intracranial aneurysm. There is no dissection within the intracranial vessels. IMPRESSION: No central vessel occlusion. No intracranial aneurysm. ACT 112: Negative or not required by law. Electronically signed by: Jeremiah Villaseñor M.D. 09/12/2020 1:12 PM Neck CTA 09/12/20 12:23 CT angio neck with con CLINICAL HISTORY: Stroke Like Symptoms COMPARISON STUDY: May 02, 2018 TECHNIQUE: CT angiography was performed from the aortic arch to the skull base. MIP imaging was performed. The patient was scanned in a dynamic helical fashion during intravenous administration of 120 cc of Optiray. A dose lowering techni que was utilized adhering to the principles of ALARA. CT DOSE: Technique: CT angiogram of the carotid and vertebral arteries was obtained using intravenous contrast and 3-D reconstruction. NASCET criteria was utilized. Findings: This is limited exam due to motion artifact. Right common carotid artery is tortuous with short retrotracheal course at the region of thoracic inlet. Heavy partially calcified plaques are seen within bilateral carotid bulbs with possible significant stenosis however evaluation is limited due to motion artifact and dense calcifications creating blooming artifact. Significant stenosis is seen within proximal left internal carotid artery during prior study. Right and left internal carotid arteries are patent with concentric calcified plaques within cavernosal and supraclinoid portion which shows less than 50% stenosis. Left predominant vertebral circulation is seen. Right and left vertebral arteries are extremely tortuous. There is approximately 50% stenosis within V4 segment of the left vertebral artery which appears similar to prior study. Mild diffuse narrowing of the V4 segment of the right vertebral artery is unchanged since prior study. Interval development of severe, approximately above 80% stenosis within foraminal portion of the right vertebral artery at the level of C4 which could be due to prominent osteophytes (serious 10 image 198). No evidence of focal occlusion or dissection is seen. IMPRESSION: 1. Interval development of significant stenosis within foraminal portion of the right vertebral artery as detailed above. Evaluation is limited due to motion ar tifact. Report will be called to emergency department during time of this dictation. 2. Prominent atherosclerotic involvement of bilateral carotid and vertebral arteries as detailed above. Limited evaluation due to motion artifact. ACT 112: Positive. There are findings on this exam that require communication between the performing entity and the patient following Patient Test Result Information Act ([place] Act 112) guidelines. The above report was generated using voice recognition software. It may contain grammatical, syntax or spelling errors. Electronically signed by: Opal Donald DO 09/12/2020 1:[address] 09/12/20 12:25 CT OF THE CERVICAL SPINE CLINICAL HISTORY: Neck pain status post trauma. COMPARISON STUDY: No previous studies for comparison. CT DOSE: TECHNIQUE: CT scan of the cervical spine was performed from the skull base to the thoracic inlet. Images are reviewed in the axial, sagittal, and coronal planes. IV contrast was not administered for this examination. A dose lowering technique was utilized adhering to the principles of ALARA. FINDINGS: The visualized portions of the lung apices reveal no evidence of pneumothorax. The prevertebral soft tissues are normal. No fractures or subluxations are visualized. There are multilevel degenerative changes IMPRESSION: No evidence of acute fracture or traumatic subluxation. ACT 112: Negative or not required by law. Electronically signed by: Alton Shah M.D. 09/12/2020 1:08 PM Pelvis X-Ray 09/12/20 12:25 XR pelvis 1-2V routine CLINICAL HISTORY: trauma COMPARISON: Pelvis and right hip radiographs December 10, 2018. FINDINGS: Incidental note is made of contrast within the mid to distal bilateral ureters and the bladder from recent contrast-enhanced CT. No acute fracture is identified within the pelvis or hips. Sacroiliac joints and symphysis pubis are intact. IMPRESSION: No acute fracture within the pelvis or hips. ACT 112: Negative or not required by law. Electronically signed by: Jeremiah Villaseñor M.D. 09/12/2020 1:23 PM ECG Data Attestation: I personally reviewed and interpreted this ECG as follows: Indication: + altered mental status Rate (beats per minute): 79 Rhythm: + normal sinus ECG Intervals/blocks: + First degree AV block, + Normal QRS and + Prolonged QT ECG [place]: + Normal ECG ST segments: + Nonspecific ST abnormalities Additional Comments: Repeat EKG at 1411 showed sinus at 65 bpm with a possible second-degree AV block, QRS 100, QTc 445, normal axis, nonspecific ST/T wave changes MDM Narrative This is an elderly male brought in by EMS after being found down by neighbors who come to check on the patient and his . Per EMS report the was also confused on scene and cannot provide any additional history. Patient was agitated and combative for EMS and after a command call informing us of the situation was given 1 mg of Ativan IM. On arrival here patient given additional Ativan in order to help facilitate IV placement and imaging. Patient continued to be combative, Versed was added additionally. Patient was rechecked multiple times and I did go with the patient over to CT due to his ongoing agitation. As he had no improvement following 3 mg of Ativan and 2 mg of Versed, Haldol IM was added initially after discussion with the ED pharmacist. Labs have been drawn by EMS and were sent, due to concern for patient's condition and no other available history or information at this time, patient sent urgently for CT and CTA of the head. Additional x-rays ordered given evidence of trauma and my suspicion for multiple falls recently. I did speak with police who were also on scene and described the patient's unkept and unsafe living situation. They did contact the office of aging. Following the additional Haldol, patient was resting comfortably, still protecting his airways with a normal respiratory rate and pulse ox. Hernandez catheter was placed, additional exam finish out that the patient was no longer agitated and fighting us. Patient with no obvious facial droop, and was moving all extremities when he was agitated initially. Patient was noted to have a mild gaze deviation to the right, however pupils equal and reactive. CT is reassuring, CT of the neck did reveal increased occlusion of the vertebral artery on the left which was suggested to be due to likely osteophyte formation. While this is noted compared to prior, this would not necessarily be unanticipated given the patient's advanced age. Additional labs did continue to be reassuring. Patient then while additional labs and imaging were still pending developed a fever. Cultures, lactic acid, and procalcitonin were added and patient started on broad-spectrum antibiotics. Patient continued to be rechecked frequently. He remained hemodynamically stable. Maintenance IV fluids were started. IV thiamine was added due to a prior history noted in EMR of alcohol abuse. Alcohol, ammonia, were also added. Mild leukocytosis was noted, however I suspect this is more stress demargination than evolving infection at this time. Patient continued to be hemodynamically stable despite no obvious etiology of his confusion. Possible related to encephalopathy from recent alcohol abuse again. UDS otherwise negative. Consideration was also given to possible VBI given angiography read. No evidence for acute bacteremia/sepsis. Case discussed with hospitalist for additional evaluation and management. After my discussion with them, the patient's was ultimately brought to the room. She was not able to provide a significant amount of additional information other than saying he had been falling multiple times recently and seemed confused at home over the last 2 to 3 days. Was also noted the patient had an irregular heartbeat intermittently on telemetry. A repeat EKG was obtained which was suggestive of possible second-degree AV block. This will continue to be monitored and this information was also given to the admitting hospitalist. An order was placed for continuous cardiac monitoring. The monitor shows a rate of __86_ with _normal sinus__ rhythm. Impression & Plan Altered mental status, Contusion of multiple sites, Hyperbilirubinemia Discharge Plan Visit Data Chief Complaint: Altered Mental Status Stated Complaint: Altered Mental Status ED Provider: Ann Bean Discharge Problem: Altered mental status, Contusion of multiple sites, Hyperbilirubinemia Patient Disposition: Admitted As Inpatient Discharge Instructions Interventions: ED Discharge Assessment Last Done: 09/12/20 16:51 Discharge Problem: Altered mental status Qualifiers: Altered mental status type: unspecified Qualified Code(s): R41.82 - Altered mental status, unspecified
--- NOTE | 2020-09-12 15:41 | Electrocardiogram Report ---
Test Reason : Blood Pressure : / mmHG Vent. Rate : 079 BPM Atrial Rate : 080 BPM P-R Int : 000 ms QRS Dur : 096 ms QT Int : 454 ms P-R-T Axes : 000 023 033 degrees QTc Int : 520 ms Poor data quality, interpretation may be adversely affected Probable Sinus rhythm with 1st degree A-V block Blocked Premature atrial complexes Poor R wave progression, consider anterior NC vs. lead placement vs. LVH Prolonged QT Abnormal ECG When compared with ECG of 02-MAY-2018 16:48, QT has lengthened Confirmed by Nicolas Thibodeaux ([id number]) on 09/12/2020 3:41:30 PM Referred By: REFERRED SELF Confirmed By:Nicolas Thibodeaux
[2020-09-12] MEDS ORDERED: ONDANSETRON INJ 2 MG/ML 2 ML VIAL IV PRN (17:10)
[2020-09-12] MEDS ORDERED: LORazepam 2 MG/4 ML VIAL IV PRN (17:10)
[2020-09-12] MEDS ORDERED: HALOPERIDOL LACTATE 5 MG/ML 1 ML VIAL IM STA (17:29)
[2020-09-12] MEDS ORDERED: MULTI-VITAMIN INFUSION 10 ML, THIAMINE HCL 100 MG, FOLIC ACID 1 MG in SODIUM CHLORIDE 0... IV ONE (17:30)
[2020-09-12] MEDS ORDERED: MAGNESIUM SULFATE / D5W 1 GM/100 ML BAG IV ONE (17:30)
[2020-09-12 18:59] LABS: Phosphorus 2.1 mg/dl (2.5-4.9)
[2020-09-12] MEDS: LOSARTAN/HCTZ 50/12.5MG TAB PO SCH (20:25)
[2020-09-12 21:53] LABS: Lyme Ab IgG w/WB Rflx Negative (Negative); Lyme Ab IgM w/WB Rflx Negative (Negative)
[2020-09-12] MEDS: SODIUM CHLORIDE 0.9% 1000ML 1,000 ML IV SCH (22:41)
[2020-09-12] MEDS: CEFEPIME 2,000 MG in SYRINGE 0 ML IV SCH (22:41)
[2020-09-13] MEDS: SODIUM CHLORIDE 0.9% 1000ML 1,000 ML IV SCH (04:12)
[2020-09-13] MEDS: CEFEPIME 2,000 MG in SYRINGE 0 ML IV SCH ×3 (05:42→21:26)
[2020-09-13 06:57] LABS: Basophils # (auto) 0.02 K/uL (0-0.2); Basophils % (auto) 0.2 %; Eosinophils # (auto) 0.06 K/uL (0-0.5); Eosinophils % (auto) 0.6 %; Hematocrit (blood only) 34.1 % (42-52); Hemoglobin 12.1 g/dL (14.0-18.0); Immature Granulocytes # (auto) 0.01 K/uL (0.00-0.02); Immature Granulocytes % (auto) 0.1 %; Lymphocytes # (auto) 0.94 K/uL (1.2-3.4); Lymphocytes % (auto) 9.3 %; Mean Corpuscular Hgb Conc 35.5 g/dL (32-36); Mean Corpuscular Volume 92.9 fL (80-100); Mean Platelet Volume 9.2 fL (7.4-10.4); Monocytes # (auto) 1.44 K/uL (0.11-0.59); Monocytes % (auto) 14.3 %; Neutrophils # (auto) 7.62 K/uL (1.4-6.5); Neutrophils % (auto) 75.5 %; Platelet Count 137 K/uL (130-400); RDW Coefficient of Variation 14.3 % (11.5-14.5); RDW Standard Deviation 48.3 fL (36.4-46.3); Red Blood Count 3.67 M/uL (4.7-6.1); White Blood Count 10.09 K/uL (4.8-10.8)
[2020-09-13 07:31] LABS: Alanine Aminotransferase 23 U/L (12-78); Albumin Level 2.9 gm/dl (3.4-5.0); Aspartate Aminotransferase 66 U/L (15-37); BUN Creatinine Ratio 19.8 (10-20); Bilirubin Direct 0.4 mg/dl (0-0.2); Blood Urea Nitrogen 17 mg/dl (7-18); Calcium 7.7 mg/dl (8.5-10.1); Carbon Dioxide 24 mmol/L (21-32); Chloride 103 mmol/L (98-107); Est GFR (African American) 92.1 ml/min; Est GFR (Non-African American) 79.5 ml/min; Glucose 95 mg/dl (70-99); Magnesium 2.1 mg/dl (1.8-2.4); Potassium 2.9 mmol/L (3.5-5.1); Sodium 133 mmol/L (136-145)
[2020-09-13 07:41] LABS: Alkaline Phosphatase 55 U/L (45-117); Bilirubin,Total 2.2 mg/dl (0.2-1); Creatine Kinase 2083 U/L (39-308); Total Protein 5.6 gm/dl (6.4-8.2)
[2020-09-13] MEDS ORDERED: PNEUMOCOCCAL POLYSACCHARIDES 25 MCG/0.5 ML VIAL/SYR IM ONE (08:37)
[2020-09-13] MEDS: LOSARTAN/HCTZ 50/12.5MG TAB PO SCH ×3 (08:55→21:27)
[2020-09-13] MEDS ORDERED: ROSUVASTATIN CALCIUM 5 MG TAB PO SCH (09:00)
[2020-09-13] MEDS: POTASSIUM CHLORIDE 40 MEQ in SODIUM CHLORIDE 0.9% 1000ML 1,000 ML IV SCH ×2 (10:25→21:26)
--- NOTE | 2020-09-13 16:02 | Electrocardiogram Report ---
Test Reason : Blood Pressure : / mmHG Vent. Rate : 065 BPM Atrial Rate : 085 BPM P-R Int : 000 ms QRS Dur : 100 ms QT Int : 428 ms P-R-T Axes : 056 024 053 degrees QTc Int : 445 ms Sinus rhythm with 2nd degree A-V block (Mobitz I) Minimal voltage criteria for LVH, may be normal variant ST depression, consider subendocardial injury Nonspecific T wave abnormality Abnormal ECG When compared with ECG of 12-SEP-2020 13:32, Premature atrial complexes are no longer Present Sinus rhythm is now with 2nd degree A-V block (Mobitz I) QT has shortened Confirmed by Nicolas Thibodeaux ([id number]) on 09/13/2020 4:02:33 PM Referred By: REFERRED SELF Confirmed By:Nicolas Thibodeaux
--- NOTE | 2020-09-13 16:26 | Electrocardiogram Report ---
Test Reason : Blood Pressure : / mmHG Vent. Rate : 053 BPM Atrial Rate : 053 BPM P-R Int : 234 ms QRS Dur : 098 ms QT Int : 528 ms P-R-T Axes : 070 -10 091 degrees QTc Int : 495 ms Sinus bradycardia with 1st degree A-V block with occasional Premature ventricular complexes Nonspecific ST and T wave abnormality Prolonged QT Abnormal ECG When compared with ECG of 12-SEP-2020 14:11, (unconfirmed) Premature ventricular complexes are now Present Sinus rhythm is no longer with 2nd degree A-V block (Mobitz I) Nonspecific T wave abnormality, worse in Anterolateral leads Confirmed by Nicolas Thibodeaux ([id number]) on 09/13/2020 4:26:35 PM Referred By: REFERRED SELF Confirmed By:Nicolas Thibodeaux
--- NOTE | 2020-09-13 20:51 | Hospitalist Progress Note ---
Date of Service September 13, 2020 Assessment & Plan (1) Confusion: Plan: 84yo male presenting with confusion/agitation. Etiology uncertain. Febrile with leukocytosis ?infection. ?agitated delirium ?encephalitis ?withdrawal - states that patient no longer drinks EtOH - he does have PO Ativan at home PRN - possibly Benzo withdrawal ? 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 PCP has been following this, not new (3) Hypertension: Plan: Blood pressure mildly elevated -Continue Losartan/HCTZ - hold metoprolol with bradycardia this morning (4) Hepatic steatosis: Plan: Chronic. Ammonia level is WNL -Repeat LFTs in AM - stable (5) Fever: Plan: Tm of 38 while in ER. Unclear source -Follow cultures -Empiric Cefepime for now, no obvious signs of infection follow out cultures (6) Elevated CK: Plan: NSS x 2 liters -Repeat CK in AM - down to 2000 from 2700 could be mild rhabdomyolysis? Cr is stable repeat CPK in AM Admission and Anticipated Discharge Date Admission Date: September 12, 2020 Subjective patient's case reviewed, presented with confusion, agitation, unclear etiology per family, might have stopped taking medications for a few days, had been taking Ativan, withdrawal? this morning he had some bradycardia on monitor, down to 40's briefly, EKG with sinus bradycardia with 1st degree AV block patient pulled out two IV's, requested one to one sitter could not get ROS from patient, too confused, but appears comfortable at the bedside labs reviewed, WBC normal, Hb stable, Na 133, K 2.9, Cr 0.85 no signs of UTI or pneumonia no fractures on imaging, has carotid stenosis but that is known issue Review of Systems Review of Systems: Unobtainable due to cognitive status Physical Exam Constitutional: + thin, + altered mental status, + frail appearing and + lethargic; no acute distress Eyes: PERRL, conjunctivae normal, anicteric sclerae Neck: trachea midline, no thyromegaly Respiratory: normal respiratory effort, lungs clear to auscultation Cardiovascular: Rate/Rhythm: regular rhythm and + bradycardic Heart Sounds: normal S1 and normal S2; no murmur Vessels: normal peripheral pulses; no JVD Extremities: normal capillary refill; no edema Gastrointestinal (Abdomen): normal bowel sounds, soft, nontender, no hepatosplenomegaly Musculoskeletal: no cyanosis or clubbing, extremities motor strength 5/5 Skin: no rashes, warm and dry Neurologic: CN's II-XI intact bilaterally, moves all extremities, awake and + confused; no focal motor deficits Psychiatric: Orientation: alert, oriented to person and + guarded (agitated); + not oriented to place and + not oriented to time Results & Data Results & Data ([facility]) Vital Signs (Past 12 Hours) Vital Signs Temp Pulse Pulse Resp BP Pulse Ox 09/13/20 19:25 37.0 C 80 18 169/60 H 95 09/13/20 15:10 36.9 C 81 18 189/76 H 96 09/13/20 15:00 80 09/13/20 11:19 36.5 C 70 18 163/62 H 98 09/13/20 08:55 88 164/81 H Laboratory Results Laboratory Results - last 24 hr 09/12/20 09/12/20 09/12/20 12:34 12:34 21:31 WBC RBC Hgb Hct MCV MCH MCHC RDW Std Deviation RDW Coeff of Randall Plt Count MPV Immature Gran % (Auto) Neut % (Auto) Lymph % (Auto) [place] % (Auto) Eos % (Auto) Baso % (Auto) Neut # (Auto) Lymph # (Auto) [place] # (Auto) Eos # (Auto) Baso # (Auto) Immature Gran # (Auto) Sodium Potassium Chloride Carbon Dioxide Anion Gap BUN Creatinine Est Cr Clr Drug Dosing Est GFR ( Amer) Est GFR (Non-Af Amer) BUN/Creatinine Ratio Glucose Calcium Magnesium Total Bilirubin Direct Bilirubin AST ALT Alkaline Phosphatase Total Creatine Kinase Total Protein Albumin Anaplasma Smear See Comment Babesia microti IgG Ab Pending Babesia microti IgM Ab Pending Babesia Interpretation Pending Lyme Disease IgG Ab Negative Lyme Disease IgM Ab Negative 09/13/20 09/13/20 06:19 06:19 WBC 10.09 RBC 3.67 L Hgb 12.1 L Hct 34.1 L MCV 92.9 MCH 33.0 MCHC 35.5 RDW Std Deviation 48.3 H RDW Coeff of Randall 14.3 Plt Count 137 MPV 9.2 Immature Gran % (Auto) 0.1 Neut % (Auto) 75.5 Lymph % (Auto) 9.3 [place] % (Auto) 14.3 Eos % (Auto) 0.6 Baso % (Auto) 0.2 Neut # (Auto) 7.62 H Lymph # (Auto) 0.94 L [place] # (Auto) 1.44 H Eos # (Auto) 0.06 Baso # (Auto) 0.02 Immature Gran # (Auto) 0.01 Sodium 133 L Potassium 2.9 L Chloride 103 Carbon Dioxide 24 Anion Gap 6.0 BUN 17 Creatinine 0.85 Est Cr Clr Drug Dosing Not Reportable Est GFR ( Amer) 92.1 Est GFR (Non-Af Amer) 79.5 BUN/Creatinine Ratio 19.8 Glucose 95 Calcium 7.7 L D Magnesium 2.1 Total Bilirubin 2.2 H Direct Bilirubin 0.4 H AST 66 H ALT 23 Alkaline Phosphatase 55 Total Creatine Kinase 2083 H Total Protein 5.6 L D Albumin 2.9 L Anaplasma Smear Babesia microti IgG Ab Babesia microti IgM Ab Babesia Interpretation Lyme Disease IgG Ab Lyme Disease IgM Ab Medications Administered Current Inpatient Medications HCTZ/Losartan Potassium (Losartan/Hctz 50/12.5mg Tab) 1 tab PO BID LEONIDES Stop: 10/12/20 20:59 Last Admin: 09/13/20 09:55 Dose: Not Given Documented by: Cefepime HCl 2,000 mg/ Syringe 20 mls @ 5 mls/min IV Q8H [facility]; Protocol Stop: 09/14/20 21:59 Last Admin: 09/13/20 14:06 Dose: 5 mls/min Documented by: Lorazepam (Ativan) 2 mg in 4 mls @ 4 mls/min IV Q4H PRN PRN Reason: agitation competitive w care Stop: 10/12/20 17:09 Potassium Chloride 40 meq/ (Sodium Chloride) 1,020 mls @ 100 mls/hr IV .[id number] LEONIDES Stop: 10/13/20 07:44 Last Admin: 09/13/20 10:25 Dose: 100 mls/hr Documented by: Ondansetron HCl (Ondansetron Inj 2 Mg/Ml 2 Ml Vial) 4 mg IV Q6H PRN PRN Reason: Nausea Stop: 10/12/20 17:09 PG Care Time/CCT Total # of Minutes Spent Total Time Spent with Patient: Total time spent is greater than 50% in coor dination of care (as documented) at patient's floor/unit and/or counseling patient: Coding Level of Care Code 86180 Subseq Hosp Care Lvl 3 Diagnoses Confusion R41.0 Stenosis of left carotid artery greater than 50% I65.22 Hypertension I10 Hepatic steatosis K76.0 Fever R50.9 Elevated CK R74.8
[2020-09-14] MEDS: CEFEPIME 2,000 MG in SYRINGE 0 ML IV SCH (05:41)
[2020-09-14 07:01] LABS: Hematocrit (blood only) 37.5 % (42-52); Hemoglobin 13.5 g/dL (14.0-18.0); Mean Corpuscular Hemoglobin 33.1 pg (25-34); Mean Corpuscular Volume 91.9 fL (80-100); Mean Platelet Volume 9.2 fL (7.4-10.4); Platelet Count 135 K/uL (130-400); RDW Coefficient of Variation 14.4 % (11.5-14.5); RDW Standard Deviation 48.2 fL (36.4-46.3); Red Blood Count 4.08 M/uL (4.7-6.1); White Blood Count 9.66 K/uL (4.8-10.8)
[2020-09-14 07:37] LABS: Albumin Level 3.2 gm/dl (3.4-5.0); BUN Creatinine Ratio 20.3 (10-20); Calcium 8.2 mg/dl (8.5-10.1); Est GFR (African American) 95.4 ml/min; Est GFR (Non-African American) 82.3 ml/min; Magnesium 1.9 mg/dl (1.8-2.4); Potassium 3.5 mmol/L (3.5-5.1)
[2020-09-14 08:12] LABS: Bilirubin,Total 1.9 mg/dl (0.2-1); Globulin 3.2 gm/dl (2.5-4.0); Total Protein 6.4 gm/dl (6.4-8.2)
[2020-09-14] MEDS ORDERED: amLODIPine BESYLATE 5 MG TAB PO SCH (09:00)
[2020-09-14] MEDS: POTASSIUM CHLORIDE 40 MEQ in SODIUM CHLORIDE 0.9% 1000ML 1,000 ML IV SCH (09:19)
[2020-09-14] MEDS: LOSARTAN/HCTZ 50/12.5MG TAB PO SCH ×2 (09:49→20:34)
[2020-09-14] MEDS ORDERED: amLODIPine BESYLATE 5 MG TAB PO ONE (11:33)
--- NOTE | 2020-09-14 11:58 | Hospitalist Progress Note ---
Date of Service September 14, 2020 Assessment & Plan (1) Confusion: Plan: 84yo male presenting with confusion/agitation, possible that he stopped taking his Ativan that he has taken for years patient alert, more cooperative and less agitated today, slight improvement suspect benzodiazepine withdrawal, required Ativan 1mg IV in ambulance then 2mg IV in the ED plus Versed 2mg IV and Haldol add back Ativan 0.5mg PO q12 since he has taken this for years no signs of infection -- stop Cefepime renal function is stable no focal neuro deficits to suggest stroke continue one to one labs in the AM will get PT/OT, might need rehab (2) 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 PCP has been following this, not new (3) Hypertension: Plan: Blood pressure more elevated today, had to stop metoprolol due to bradycardia on monitor -Continue Losartan/HCTZ add Norvasc, increase to 10mg qAM (4) Hepatic steatosis: Plan: Chronic. Ammonia level is WNL -Repeat LFTs in AM - stable (5) Fever: Plan: Tm of 38 while in ER. Unclear source -Follow cultures: no growth on urine or blood -Empiric Cefepime initially, stop today (6) Elevated CK: Plan: NSS x 2 liters -Repeat CK down to 1000 from 1999 could be mild rhabdomyolysis? Cr is stable repeat CPK in AM again change fluids to LR since K is 3.5 (7) Bradycardia: Plan: transient, happened on 09/13 EKG showed sinus bradycardia with 1st degree AV block stop metoprolol, HR is stable off of it (8) Hypokalemia: Plan: added 40mEq to IV fluids K is 3.5 today Admission and Anticipated Discharge Date Admission Date: September 12, 2020 Subjective patient is alert, more cooperative today, not pulling at IV site did not eat breakfast this AM, too lethargic but he wants to try to eat lunch labs reviewed, CK down to 1000, Cr stable, WBC 9, Hb 13 no growth on urine or blood cultures, stop Cefepime change fluids to LR will consult PT/OT since he lives at home Physical Exam Constitutional: + thin, + altered mental status, + frail appearing and + lethargic; no acute distress Eyes: PERRL, conjunctivae normal, anicteric sclerae Neck: trachea midline, no thyromegaly Respiratory: normal respiratory effort, lungs clear to auscultation Cardiovascular: Rate/Rhythm: regular rate and regular rhythm Heart Sounds: normal S1 and normal S2; no murmur Vessels: normal peripheral pulses; no JVD Extremities: normal capillary refill; no edema Gastrointestinal (Abdomen): normal bowel sounds, soft, nontender, no hepatospl enomegaly Musculoskeletal: no cyanosis or clubbing, extremities motor strength 5/5 Skin: no rashes, warm and dry Neurologic: CN's II-XI intact bilaterally, moves all extremities, awake and + confused; no focal motor deficits Psychiatric: Orientation: alert, oriented to person and cooperative; + not oriented to place and + not oriented to time Results & Data Results & Data ([facility]) Vital Signs (Past 12 Hours) Vital Signs Temp Pulse Resp BP BP Pulse Ox 09/14/20 11:26 36.9 C 77 16 209/42 H 206/70 H 96 09/14/20 07:35 36.7 C 75 20 186/78 H 92 09/14/20 04:00 36.2 C L 81 18 193/75 H 95 Laboratory Results Laboratory Results - last 24 hr 09/14/20 09/14/20 06:26 06:26 WBC 9.66 RBC 4.08 L Hgb 13.5 L Hct 37.5 L MCV 91.9 MCH 33.1 MCHC 36.0 RDW Std Deviation 48.2 H RDW Coeff of Randall 14.4 Plt Count 135 MPV 9.2 Sodium 139 Potassium 3.5 D Chloride 107 Carbon Dioxide 24 Anion Gap 8.0 BUN 16 Creatinine 0.78 Est Cr Clr Drug Dosing 61.0 Est GFR ( Amer) 95.4 Est GFR (Non-Af Amer) 82.3 BUN/Creatinine Ratio 20.3 H Glucose 85 Calcium 8.2 L Magnesium 1.9 Total Bilirubin 1.9 H AST 59 H ALT 27 Alkaline Phosphatase 60 Total Creatine Kinase 1053 H Total Protein 6.4 Albumin 3.2 L Globulin 3.2 Albumin/Globulin Ratio 1.0 Microbiology 09/12/20 14:55 Blood Aerobic Blood Culture - Preliminary No growth in Aerobic bottle after 24 hours. 09/12/20 14:55 Blood Anaerobic Blood Culture - Final 09/12/20 14:55 Blood Aerobic Blood Culture - Preliminary No growth in Aerobic bottle after 24 hours. 09/12/20 14:55 Blood Anaerobic Blood Culture - Final Medications Administered Current Inpatient Medications Amlodipine Besylate (Amlodipine Besylate 5 Mg Tab) 10 mg PO QAM LEONIDES Stop: 10/15/20 08:59 HCTZ/Losartan Potassium (Losartan/Hctz 50/12.5mg Tab) 1 tab PO BID LEONIDES Stop: 10/12/20 20:59 Last Admin: 09/14/20 09:49 Dose: 1 tab Documented by: Lorazepam (Lorazepam 0.5 Mg Tab) 0.5 mg PO Q12 LEONIDES Stop: 10/14/20 20:59 Ondansetron HCl (Ondansetron Inj 2 Mg/Ml 2 Ml Vial) 4 mg IV Q6H PRN PRN Reason: Nausea Stop: 10/12/20 17:09 PG Care Time/CCT Total # of Minutes Spent Total Time Spent with Patient: Total time spent is greater than 50% in coordination of care (as documented) at patient's floor/unit and/or counseling patient: Coding Level of Care Code 26884 Subseq Hosp Care Lvl 3 Diagnoses Confusion R41.0 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
[2020-09-14] MEDS ORDERED: LACTATED RINGER'S 1,000 ML IV SCH (12:00)
[2020-09-14] MEDS: LORazepam 0.5 MG TAB PO SCH (20:34)
[2020-09-15 03:18] LABS: 7-Aminoclonaz, Confirm NEGATIVE ng/mL (<25); Hydro-Alp Ur, GC/MS NEGATIVE ng/mL (<25); Hydroxyethylflurazepam, Conf NEGATIVE ng/mL (<50); Hydroxymidazolam Ur, GC/MS 186 ng/mL (<50); Hydroxytriazolam NEGATIVE ng/mL (<50); Lorazepam, Ur GC/MS 810 ng/mL (<50); Nordiazepam, Confirm NEGATIVE ng/mL (<50); Oxazepam Ur, GC/MS NEGATIVE ng/mL (<50); Temazepam, Confirm NEGATIVE ng/mL (<50)
[2020-09-15] MEDS ORDERED: LABETALOL HCL IV 5 MG/ML 20ML IV STA (04:05)
[2020-09-15] MEDS: LORazepam 0.5 MG TAB PO SCH ×2 (09:20→21:28)
[2020-09-15] MEDS: amLODIPine BESYLATE 5 MG TAB PO SCH (09:21)
[2020-09-15] MEDS: LOSARTAN/HCTZ 50/12.5MG TAB PO SCH ×2 (09:21→21:29)
--- NOTE | 2020-09-15 13:14 | Hospitalist Progress Note ---
Date of Service September 15, 2020 Assessment & Plan (1) Confusion: Plan: 84yo male presenting with confusion/agitation, possible that he stopped taking his Ativan that he has taken for years patient alert, more cooperative and less agitated past two days suspect benzodiazepine withdrawal, required Ativan 1mg IV in ambulance then 2mg IV in the ED plus Versed 2mg IV and Haldol add back Ativan 0.5mg PO q12 since he has taken this for years no signs of infection -- stopped Cefepime after 24 hours renal function is stable no focal motor deficits but speech is off, some receptive aphasia, poor short term memory, BP quite high will get MRI brain today now that he is finally calm and cooperative stroke would be most logical explanation of presentation, need to rule out (2) 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 PCP has been following this, not new checking MRI brain today to r/o stroke (3) Hypertension: Plan: Blood pressure more elevated today, had to stop metoprolol due to bradycardia on monitor certainly elevated pressures could indicate recent stroke -Continue Losartan/HCTZ added Norvasc, increase to 10mg qAM still high today, add Hydralazine 50mg TID (4) Hepatic steatosis: Plan: Chronic. Ammonia level is WNL -Repeat LFTs in AM - stable (5) Fever: Plan: Tm of 38 while in ER. Unclear source -Follow cultures: no growth on urine or blood -Empiric Cefepime initially, stopped after 24 hours (6) Elevated CK: Plan: NSS x 2 liters -Repeat CK down to 1000 from 1999 could be mild rhabdomyolysis? Cr is stable repeat CPK tomorrow, give 1 liter of LR again today since PO intake is suboptimal (7) Bradycardia: Plan: transient, happened on 09/13 EKG showed sinus bradycardia with 1st degree AV block stop metoprolol, HR is stable off of it (8) Hypokalemia: Plan: added 40mEq to IV fluids K is 3.5 on 09/14 repeat BMP tomorrow Plan: check MRI brain PT/OT evaluations encourage him to eat/drink more might need rehab, he is from home with his Admission and Anticipated Discharge Date Admission Date: September 12, 2020 Subjective patient is much more talkative today, very kind and cooperative he says "I feel like I am making a comeback" explained that we still need the MRI to make sure he does not have a stroke, my main concern at this time given altered mental status and elevated BP he is not eating much, will need to give more LR, pull oakley add Hydralazine for BP he is oriented to person, denies pain, denies dyspnea, denies chest pain, denies fever/cough admits to confusion, poor memory from time he came into the hospital does not believe me when I tell him that he was pulling out IV sites and taking off his gown Review of Systems Review of Systems: All systems reviewed & are unremarkable except as noted in Subjective Physical Exam Constitutional: + thin and + frail appearing; no acute distress Eyes: PERRL, conjunctivae normal, anicteric sclerae Neck: trachea midline, no thyromegaly Respiratory: normal respiratory effort, lungs clear to auscultation Cardiovascular: Rate/Rhythm: regular rate and regular rhythm Heart Sounds: normal S1 and normal S2; no murmur Vessels: normal peripheral pulses; no JVD Extremities: normal capillary refill; no edema Gastrointestinal (Abdomen): normal bowel sounds, soft, nontender, no hepatosplenomegaly Musculoskeletal: no cyanosis or clubbing, extremities motor strength 5/5 Skin: no rashes, warm and dry Neurologic: CN's II-XI intact bilaterally, moves all extremities, awake and + confused (cannot recall why he is here); no focal motor deficits Speech / Cognition: + abnormal speech (using some inappropriate words, talking tangentially) Psychiatric: Orientation: alert, oriented to person and cooperative; + not oriented to place and + not oriented to time Results & Data Results & Data ([facility]) Vital Signs (Past 12 Hours) Vital Signs Temp Pulse Resp BP BP Pulse Ox 09/15/20 11:47 36.8 C 72 18 190/81 H 97 09/15/20 07:24 36.2 C L 65 18 188/73 H 96 09/15/20 05:16 36.8 C 69 17 189/78 H 93 09/15/20 03:05 36.6 C 83 16 200/66 H 206/67 H 95 Laboratory Results Laboratory Results - last 24 hr 09/12/20 13:50 U OH-Alprazolam Confrm NEGATIVE 7-Amino Clonazepam NEGATIVE Ur Nordiazepam Confirm NEGATIVE U OH-ethylflurazepam NEGATIVE U Lorazepam Cnf GC/MS 810 H U Oxazepam Confm GC/MS NEGATIVE Ur Temazepam Confirm NEGATIVE U OH-Triazolam Confirm NEGATIVE U OH-Midazolam Confirm 186 H Drug Screen Comment SEE NOTE Medications Administered Current Inpatient Medications Amlodipine Besylate (Amlodipine Besylate 5 Mg Tab) 10 mg PO QAM LEONIDES Stop: 10/15/20 08:59 Last Admin: 09/15/20 09:21 Dose: 10 mg Documented by: HCTZ/Losartan Potassium (Losartan/Hctz 50/12.5mg Tab) 1 tab PO BID LEONIDES Stop: 10/12/20 20:59 Last Admin: 09/15/20 09:21 Dose: 1 tab Documented by: Hydralazine HCl (Hydralazine Tab 50 Mg Tab) 50 mg PO TID LEONIDES Stop: 10/15/20 13:59 Lactated Ringer's (Lr) 1,000 mls @ 80 mls/hr IV .[id number] LEONIDES Stop: 09/16/20 01:44 Lorazepam (Lorazepam 0.5 Mg Tab) 0.5 mg PO Q12 LEONIDES Stop: 10/14/20 20:59 Last Admin: 09/15/20 09:20 Dose: 0.5 mg Documented by: Ondansetron HCl (Ondansetron Inj 2 Mg/Ml 2 Ml Vial) 4 mg IV Q6H PRN PRN Reason: Nausea Stop: 10/12/20 17:09 PG Care Time/CCT Total # of Minutes Spent Total Time Spent with Patient: Total time spent is greater than 50% in coordination of care (as documented) at patient's floor/unit and/or counseling patient: Coding Level of Care Code 87471 Subseq Hosp Care Lvl 3 Diagnoses Confusion R41.0 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
[2020-09-15] MEDS ORDERED: LACTATED RINGER'S 1,000 ML IV SCH (13:15)
[2020-09-15] MEDS: hydrALAZINE TAB 50 MG TAB PO SCH ×2 (13:47→21:28)
[2020-09-15] MEDS ORDERED: LORazepam 0.5 MG TAB PO ONE (14:29)
[2020-09-15] MEDS ORDERED: GADOBUTROL 65ML VIAL IV ONE (16:55)
--- NOTE | 2020-09-15 17:31 | Magnetic Resonance Report ---
MRI OF THE BRAIN WITHOUT AND WITH IV CONTRAST CLINICAL HISTORY: r/o stroke COMPARISON STUDY: May 02, 2018 TECHNIQUE: MRI of the brain was performed from the vertex to the skull base utilizing various T1 and T2 weighted sequences. Following the IV administration of 7 mL of Gadavist contrast, additional enhan trey images were obtained. FINDINGS: Sagittal T1, axial diffusion, proton density and T2 weighted axial, coronal FLAIR, and pre and post a xial T1-weighted images were acquired. These were supplemented with post gadolinium coronal T1 weight ed images. No intra or extra-axial mass lesions are visualized. Axial diffusion-weighted images reveal no evidence of acute or subacute infarction. Atrophic changes of brain parenchyma associated with ex vacuo dilatation of ventricles are again seen . Proton density T2-weighted and FLAIR images reveal minimal scattered foci of increased T2 signal with in the white matter, likely on a small vessel basis. Interval development of focal area of increased subcortical white matter T2 FLAIR signal within left parietal lobe which was not seen during prior study performed on May 02, 2018 which is also associat ed with volume loss likely representing old infarct. There are no abnormal flow voids. There is no evidence of pathologic enhancement. Small lacunar infarcts are seen within the right basal ganglia. IMPRESSION: 1. No evidence of acute diffusion to suggest acute ischemia/infarct. 2. Focal area of increased T2 FLAIR white matter signal within left parietal lobe likely representin g old infarct. 3. Atrophic changes of brain parenchyma associated with ex vacuo dilatation of ventricles. 4. Chronic small vessel ischemia. ACT 112: Negative or not required by law. The above report was generated using voice recognition software. It may contain grammatical, syntax o r spelling errors. Electronically signed by: Opal Donald DO 09/15/2020 5:30 PM
[2020-09-16 06:39] LABS: Hematocrit (blood only) 38.8 % (42-52); Hemoglobin 14.1 g/dL (14.0-18.0); Mean Corpuscular Hemoglobin 33.2 pg (25-34); Mean Corpuscular Hgb Conc 36.3 g/dL (32-36); Mean Corpuscular Volume 91.3 fL (80-100); Mean Platelet Volume 9.4 fL (7.4-10.4); Platelet Count 194 K/uL (130-400); RDW Coefficient of Variation 14.6 % (11.5-14.5); RDW Standard Deviation 48.1 fL (36.4-46.3); Red Blood Count 4.25 M/uL (4.7-6.1); White Blood Count 10.29 K/uL (4.8-10.8)
[2020-09-16 06:58] LABS: BUN Creatinine Ratio 24.3 (10-20); Creatinine Clr Calc Pharmacy 55.2 ml/min; Est GFR (African American) 92.1 ml/min; Est GFR (Non-African American) 79.5 ml/min; Potassium 3.1 mmol/L (3.5-5.1)
[2020-09-16] MEDS ORDERED: POTASSIUM CHLORIDE CRTAB 20 MEQ TABCR PO ONE (08:41)
[2020-09-16] MEDS: LOSARTAN/HCTZ 50/12.5MG TAB PO SCH ×2 (09:15→20:15)
[2020-09-16] MEDS: amLODIPine BESYLATE 5 MG TAB PO SCH (09:15)
[2020-09-16] MEDS: hydrALAZINE TAB 50 MG TAB PO SCH ×3 (09:15→20:15)
[2020-09-16] MEDS: LORazepam 0.5 MG TAB PO SCH ×2 (09:16→20:15)
[2020-09-16] MEDS: POTASSIUM CHLORIDE / WTR 10 MEQ/100 ML PLCT IV SCH ×2 (09:34→10:59)
--- NOTE | 2020-09-16 13:07 | Hospitalist Progress Note ---
Date of Service September 16, 2020 Assessment & Plan (1) Confusion: Plan: - Presented with confusion/agitation - likely related to stopping his home chronic Ativan. - Ativan was resumed - received 1 mg IV in the ambulance then 2 mg IV in the ER. - On Ativan 0.5 mg q12hr - has taken this for years - with almost complete resolution of encephalopathy. - Infectious work up neg - stopped Cefepime after 24 hours. 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 - PT/OT recommending SNF placement - case management following. 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 - PCP has been following this, not new - MRI brain negative on 09/15 for CVA. (3) Hypertension: Plan: - D/c'ed home Metoprolol d/t bradycardia. - Continued Losartan/HCTZ; also added Norvasc 10 mg qAM. - Started Hydralazine 50 mg TID on 09/15 as BP remained elevated. - BP has now started to improve overall. (4) Hepatic steatosis: Plan: - Chronic. - Did have elevated T. bili, AST - now improved. ?Rhabdo at admission. (5) Fever: Plan: - Tm of 38 while in ER. Unclear source - Infectious work up was negative; received Cefepime for 24 hours. (6) Elevated CK: Plan: - NSS x 2 liters - Repeat CK improved from 2083 --> 1053 --> 239. - Possibly related to mild rhabdo, now resolved. (7) Bradycardia: Plan: - Home Metoprolol was d/c'ed due to bradycardia. - HR has now improved. (8) Hypokalemia: Plan: - K level 3.1 - administered KCl 20 mEq IV and KCl 20 mEq PO. - Repeat K level in the AM along with levle. DVT ppx: Bilat SCDs. Dispo: Patient will likely require SNF placement - case management is following. Plan: Will need rehab - case management assistant is following. Admission and Anticipated Discharge Date Admission Date: September 12, 2020 Supervising Physician Co-Signing Physician Notes Attending Attestation - Personal bedside assessment not performed, but chart reviewed, and care plan d/w MIKO Miles. I agree w/ the calderón components of her documentation. Esequiel Francisco MD Subjective Mr. Arriaga is doing well today; confusion has improved, although he does still have slight moments of confusion during our conversation. He is very weak - will need SNF placement per PT/OT recs. MRI of brain was negative yesterday for acute abnormalities. He has resumed home Ativan - led to improvement in mental status. Infectious work up was negative. BP levels have improved overall, most recently 139/63. Review of Systems Review of Systems: Constitutional: Negative for weight loss, night sweats, or fever Eyes: Negative for event change of vision ENT: Negative for epistaxis, nasal discharge, sore throat, or deafness Cardiovascular: Negative for anginal type chest pain, palpitations, dizziness, diaphoresis Respiratory: Negative for new shortness of breath,hemoptysis, or purulent cough Gastrointestinal: Negative for diarrhea, hematemesis, melena, nausea, vomiting, or dyspepsia Integumentary (skin): Negative for rash or jaundice discoloration Genitourinary: Negative for urinary frequency, hematuria, or dysuria Neurological: Negative for weakness, seizure activity, headache, or dizziness Lymphatic/Hematologic: Negative for petechiae, bleeding or new adenopathy Musculoskeletal: Negative for new joint or back pain Allergic/Immunologic: Negative for unusual rash or pruritis Physical Exam Physical Exam: Constitutional: Vitals are stable Respiratory: Lung sounds were generally clear bilaterally. Cardiovascular: Heart was RRR without significant murmur, gallops or rubs. Gastrointestinal: No palpable hepatic or splenomegaly. The abdomen was soft with normal bowel sounds. Lymphatic system: There was no palpable peripheral lymphadenopathy. Musculoskeletal System: The musculoskeletal system seemed concordant with age. Skin: The skin was negative for jaundice. Neurologic Exam: The exam was negative for any focal findings. Does have slight moments of confusion noted during our conversation. Extremities: Negative for edema or erythema Results & Data Results & Data ([facility]) Vital Signs (Past 12 Hours) Vital Signs Temp Pulse Pulse Resp BP BP Pulse Ox 09/16/20 11:59 36.7 C 89 18 139/63 97 09/16/20 08:23 70 09/16/20 07:51 36.5 C 78 18 158/62 H 96 09/16/20 03:55 36.7 C 72 16 131/68 98 Laboratory Results 09/16/20 09/16/20 Range/Units 06:12 06:12 WBC 10.29 (4.8-10.8) K/uL RBC 4.25 L (4.7-6.1) M/uL Hgb 14.1 (14.0-18.0) g/dL Hct 38.8 L (42-52) % MCV 91.3 (80-100) fL MCH 33.2 (25-34) pg MCHC 36.3 H (32-36) g/dL RDW Std Deviation 48.1 H (36.4-46.3) fL RDW Coeff of Randall 14.6 H (11.5-14.5) % Plt Count 194 (130-400) K/uL MPV 9.4 (7.4-10.4) fL Sodium 135 L (136-145) mmol/L Potassium 3.1 L (3.5-5.1) mmol/L Chloride 100 (98-107) mmol/L Carbon Dioxide 27 (21-32) mmol/L Anion Gap 8.0 (3-11) BUN 21 H (7-18) mg/dl Creatinine 0.85 (0.6-1.4) mg/dl Est Cr Clr Drug Dosing 55.2 ml/min Est GFR ( Amer) 92.1 ml/min Est GFR (Non-Af Amer) 79.5 ml/min BUN/Creatinine Ratio 24.3 H (10-20) Glucose 109 H (70-99) mg/dl Calcium 9.0 (8.5-10.1) mg/dl Total Creatine Kinase 239 (39-308) U/L PG Care Time/CCT Total # of Minutes Spent Total Time Spent with Patient: Total time spent is greater than 50% in coordination of care (as documented) at patient's floor/unit and/or counseling patient: Coding [place] [address] Subseq Hosp Care Lvl 2 Patient Type Established Diagnoses Confusion R41.0 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
[2020-09-16] MEDS ORDERED: NAPROXEN 250 MG TAB PO PRN (20:26)
[2020-09-16 22:41] LABS: Babesia microti IgG <1:64 titer (<1:64)
[2020-09-17] MEDS: amLODIPine BESYLATE 5 MG TAB PO SCH (08:37)
[2020-09-17] MEDS: LORazepam 0.5 MG TAB PO SCH ×2 (08:37→20:08)
[2020-09-17] MEDS: hydrALAZINE TAB 50 MG TAB PO SCH ×3 (08:37→20:08)
[2020-09-17] MEDS: LOSARTAN/HCTZ 50/12.5MG TAB PO SCH ×2 (08:37→20:08)
[2020-09-17 09:38] LABS: Hematocrit (blood only) 38.8 % (42-52); Hemoglobin 14.1 g/dL (14.0-18.0); Mean Corpuscular Hemoglobin 33.7 pg (25-34); Mean Corpuscular Hgb Conc 36.3 g/dL (32-36); Mean Corpuscular Volume 92.8 fL (80-100); Mean Platelet Volume 9.1 fL (7.4-10.4); Platelet Count 227 K/uL (130-400); RDW Coefficient of Variation 15.1 % (11.5-14.5); RDW Standard Deviation 50.4 fL (36.4-46.3); Red Blood Count 4.18 M/uL (4.7-6.1); White Blood Count 8.85 K/uL (4.8-10.8)
[2020-09-17 09:57] LABS: Albumin Level 3.6 gm/dl (3.4-5.0); BUN Creatinine Ratio 21.5 (10-20); Calcium 9.3 mg/dl (8.5-10.1); Creatinine Clr Calc Pharmacy 47.9 ml/min; Est GFR (African American) 81.2 ml/min; Magnesium 1.8 mg/dl (1.8-2.4); Potassium 3.1 mmol/L (3.5-5.1)
[2020-09-17 10:00] LABS: Albumin Globulin Ratio 1.1 (0.9-2); Bilirubin,Total 1.5 mg/dl (0.2-1); Globulin 3.3 gm/dl (2.5-4.0); Total Protein 6.9 gm/dl (6.4-8.2)
[2020-09-17] MEDS ORDERED: POTASSIUM CHLORIDE CRTAB 20 MEQ TABCR PO SCH (10:45)
--- NOTE | 2020-09-17 14:10 | Hospitalist Progress Note ---
Date of Service September 17, 2020 Assessment & Plan (1) Confusion: Plan: - Improved, but the patient continues to have some mild confusion today. - Presented with confusion/agitation - likely related to stopping his home chronic Ativan. - Ativan was resumed - received 1 mg IV in the ambulance then 2 mg IV in the ER. - On Ativan 0.5 mg q12hr - has taken this for years - with almost complete resolution of encephalopathy. - Infectious work up neg - stopped Cefepime after 24 hours. 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 - PT/OT recommending SNF placement - case management following. - Chest XR on 09/12/20 showed a non-specific opacity of the left lateral lung base. Will recheck chest XR 2V to r/o developing pneumonia as source of persistent confusion. 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 - PCP has been following this, not new - MRI brain negative on 09/15 for CVA. (3) Hypertension: Plan: - D/c'ed home Metoprolol d/t bradycardia.--> HR 68 today. - Continued Losartan/HCTZ; also added Norvasc 10 mg qAM. - Started Hydralazine 50 mg TID on 09/15 as BP remained elevated. - BP has now started to improve overall.---> 115/62 today. (4) Hepatic steatosis: Plan: - Chronic. - Did have elevated T. bili, AST - now improved. ?Rhabdo at admission. Patient did mention several times today a previous hx of heavy alcohol use with partying, poker games etc, but denies alcohol use prior to admission. (5) Fever: Plan: - Tm of 38 while in ER. Unclear source - Patient has been afebrile for >24hrs. - Infectious work up was negative; received Cefepime for 24 hours. (6) Elevated CK: Plan: - NSS x 2 liters - Repeat CK improved from 2083 --> 1053 --> 239. - Possibly related to mild rhabdo, now resolved. (7) Bradycardia: Plan: - Home Metoprolol was d/c'ed due to bradycardia. - HR has now improved.---> 68 today. (8) Hypokalemia: Plan: - K level 3.1 - administered KCl 20 mEq IV and KCl 20 mEq PO yesterday with no improvement. - Repeat K level this morning remained 3.1. Magnesium normal at 1.8. - administered KCL 20 mEq IV and increased KCL 20 mEq PO to BID. - Repeat in AM. Plan: DVT ppx: Bilat SCDs. Dispo: Patient will likely require SNF placement - case management is following. Admission and Anticipated Discharge Date Admission Date: September 12, 2020 Supervising Physician Co-Signing Physician Notes Attending Attestation - Personal bedside visit was not performed. However, chart reviewed in detail, and care plan d/w CRANE HOOKERLOLLY Osman. I agree w/ the calderón components of her documentation. Pt with encephalopathy - ongoing - initially thought 2nd to benzodiazepine withdrawal. Symptoms have improved, but confusion still present. Fever at admission - now resolved. However, ?LLL infiltrate on admission cxr -- ?pneumonia? Recheck cxr in am. Supportive care. Ativan has been resumed per previous home dosing. Esequiel Francisco MD Subjective Patient states he is feeling better this morning. C/o neck pain from the bed. Re lynnette mildly confused. Patient feels he was taking his Ativan as directed prior to admission, but then admits he may not have been. Patient mentioned heavier alcoholic use in the past several times during our conversation today without being questioned about this. He does deny any alcohol use prior to admission. Review of Systems Constitutional: no fever and no chills Eyes: no worsening vision Respiratory: no dyspnea Cardiovascular: no chest pain Gastrointestinal: no abdominal pain, no nausea and no vomiting Genitourinary: no dysuria or no difficulty urinating Musculoskeletal: + back pain and + neck pain Neurologic: no falls Physical Exam Constitutional: + overweight; no acute distress ENMT: Ears: no hearing impairment Neck: trachea midline, no thyromegaly Respiratory: normal respiratory effort, lungs clear to auscultation Cardiovascular: Rate/Rhythm: regular rate and regular rhythm Vessels: no JVD Gastrointestinal (Abdomen): Inspection/Auscultation: normal bowel sounds Percussion/Palpation: abdomen soft; abdomen nontender Skin: no rashes, warm and dry Psychiatric: A+Ox3, euthymic affect Lymphatic: no cervical or axillary lymphadenopathy Results & Data Results & Data ([facility]) Vital Signs (Past 12 Hours) Vital Signs Temp Pulse Pulse Resp BP BP Pulse Ox 09/17/20 13:52 115/62 09/17/20 12:14 36.9 C 68 19 116/59 L 92 09/17/20 11:20 36.9 C 67 18 123/61 91 09/17/20 07:49 37.0 C 97 H 18 153/68 H 97 09/17/20 07:36 69 09/17/20 03:47 36.5 C 73 20 149/62 H 95 PG Care Time/CCT Total # of Minutes Spent Total Time Spent with Patient: Total time spent is greater than 50% in coordination of care (as documented) at patient's floor/unit and/or counseling patient: Coding Level of Care Code 34359 Subseq Hosp Care Lvl 2 Medical Decision Making Moderate Complexity Diagnoses Confusion R41.0 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
[2020-09-17] MEDS ORDERED: POTASSIUM CHLORIDE 10 MEQ in SODIUM CHLORIDE 0.9% 1000ML 1,000 ML IV SCH (15:00)
[2020-09-17] MEDS: POTASSIUM CHLORIDE / WTR 10 MEQ/100 ML PLCT IV SCH ×2 (15:57→18:02)
[2020-09-17] MEDS: POTASSIUM CHLORIDE CRTAB 20 MEQ TABCR PO SCH (20:09)
[2020-09-18 07:12] LABS: BUN Creatinine Ratio 21.3 (10-20); Calcium 9.2 mg/dl (8.5-10.1); Creatinine Clr Calc Pharmacy 43.9 ml/min; Potassium 3.4 mmol/L (3.5-5.1)
--- NOTE | 2020-09-18 07:39 | XRay Report ---
XR chest 2V PA/lateral CLINICAL HISTORY: persistent confusion COMPARISON STUDY: Chest radiograph September 12, 2020. FINDINGS: Lung volumes are normal. There is no pneumothorax or pleural effusion. It is made of cardio megaly without evidence for edema. There is minimal left basilar opacity with blunting of the left co stophrenic angle. This is improved since prior examination. IMPRESSION: Improvement in left basilar opacity with suspected trace left pleural effusion. Follow-u p PA and lateral chest radiographs in 2 months to ensure complete resolution are recommended. ACT 112: Negative or not required by law. Electronically signed by: Jeremiah Villaseñor M.D. 09/18/2020 7:37 AM
[2020-09-18] MEDS: LOSARTAN/HCTZ 50/12.5MG TAB PO SCH ×2 (08:09→20:05)
[2020-09-18] MEDS: POTASSIUM CHLORIDE CRTAB 20 MEQ TABCR PO SCH ×2 (08:09→20:05)
[2020-09-18] MEDS: amLODIPine BESYLATE 5 MG TAB PO SCH (08:09)
[2020-09-18] MEDS: hydrALAZINE TAB 50 MG TAB PO SCH ×3 (08:10→20:05)
[2020-09-18] MEDS: LORazepam 0.5 MG TAB PO SCH ×2 (08:11→20:04)
[2020-09-18] MEDS ORDERED: POTASSIUM CHLORIDE CRTAB 20 MEQ TABCR PO STA (12:07)
--- NOTE | 2020-09-18 14:36 | Cardiology Consultation ---
Date of Consultation September 18, 2020 Assessment & Plan (1) Paroxysmal A-fib: Elderly, frail patient with apparently new onset atrial fibrillation with widely variable ventricular response. Prior to this admission he was on metoprolol tartrate 50 mg twice daily, due to his initial bradycardia apparently this was held during this hospitalization. Patient noted to have significant hypokalemia and hypomagnesia on admission, hypokalemia persists. Although his rate during atrial fibrillation has varied he has not demonstrated excessive bradycardia in recent days, therefore recommend restarting metoprolol but at a lower dose than he was on as an outpatient in order to reduce the risk of recurrent bradycardia should he revert to sinus rhythm. Since he is asymptomatic, could titrate gradually, with initial dose of 12.5 mg metoprolol tartrate q 12 hours, further adjustments based on his heart rate/rhythm response. If he again develops bradycardia on low-dose beta-madina, a pacemaker would be a consideration for tachybradycardia syndrome. Would also recommend continued potassium supplementation as well as magnesium supplementation, ideally to achieve potassium greater than or equal to 4.0 and magnesium greater than or equal to 2.0. The issue of anticoagulation is difficult, since he is prone to falls and has obvious ecchymoses it is clear that he would be at increased risk for bleeding complications. However, generally speaking, the number of falls required to cause a major or fatal bleeding complication is quite high and with a [id number]- VASc score of at least 5 he is at high risk for a stroke. Appropriate compliance with anticoagulation is another issue, his risk of confusion would argue against anticoagulation if he returns home. If he is in an assisted living setting where medications are monitored and he accepts the reduced quality of life that falls/ecchymoses would involve when anticoagulated, could consider anticoagulation with apixaban 5 mg twice daily. (2) Hypokalemia: (3) Hypomagnesemia: (4) Bradycardia: (5) Hypertension: Currently on amlodipine 10 mg, losartan/HCTZ 50/12.5 mg, hydralazine 50 mg 3 times daily for BP control. Addition of low-dose metoprolol is unlikely to have major impact on his blood pressure. Would allow some degree of at least mild permissive hypertension given his significant cerebrovascular disease in the absence of significant LVH on his last echocardiogram (weighing against chronic severe hypertension being an issue). (6) Mitral regurgitation: Mild on echocardiogram 2018. Moderate on exam currently. Unlikely to be clinically significant given his age/comorbidities and lack of heart failure or major dyspneic symptoms. (7) Altered mental status: Evaluation underway. Although he ambulates without assistance, his episodic abrupt loss of balance may be a manifestation of his vertebral artery disease. (8) Vertebral artery stenosis: As above. History of Present Illness Reason for Consultation: afib Requesting Physician: Char Gutierrez MD Attending Physician: Char Gutierrez MD History of Present Illness 85-year-old man with vascular disease (carotid, PAD) but no known cardiac history who was admitted 09/12/2020 with confusion. Although initially he had sinus bradycardia (at times with with Mobitz type I second-degree heart block), he subsequently developed atrial fibrillation with widely varying ventricular response (70 bpm - 150 bpm), for which he is now undergoing cardiology evaluation. He notes that he has had a sense of tachypalpitations periodically for about 2 years, these episodes have not been sustained and have not been associated with other symptoms. He has also had a series of unexplained falls, these do not necessarily seem related to his tachypalpitations. He denies any chest pain or unusual dyspnea and notes no orthopnea, PND, or ankle edema. He did have dyspnea on exertion many years ago (2007), cardiac work-up with stress test at that time was negative. A recent echocardiogram showed normal systolic function, borderline LVH, no wall motion abnormalities, and mild mitral regurgitation. Currently, his main concern is whether he will be able to return home to his of 50 years (who herself is wheelchair-bound). He denies any symptoms at rest presently. 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 Allergies Allergy/AdvReac Type Severity Reaction Status Date / Time No Known Drug Allergies Allergy Verified 07/07/20 10:39 Home Medications Medication Instructions Recorded Confirmed Type aspirin 81 mg tablet,delayed 81 mg PO QAM #30 tab 05/03/18 07/07/20 Rx release (Ecotrin Low Strength) vitamins A,C,L-mejg-drsqrt 14,320 1 cap PO BID #60 cap 08/05/18 07/07/20 Rx unit-226 mg-200 unit capsule (PreserVision AREDS) coenzyme Q10 100 mg capsule 100 mg PO DAILY 12/14/18 07/07/20 History rosuvastatin 5 mg tablet (Crestor) 5 mg PO DAILY #90 tab 09/28/19 09/12/20 Rx metoprolol tartrate 50 mg tablet 50 mg PO BID #135 tab 10/12/19 09/12/20 Rx naproxen sodium 220 mg tablet See Rx Instructions PO DAILY PRN 07/07/20 07/07/20 History (Aleve) tab lorazepam 1 mg tablet (Ativan) 1 mg PO .COMPLEX PRN 09/12/20 09/12/20 History losartan 50 mg-hydrochlorothiazide 1 tab PO BID 09/12/20 09/12/20 History 12.5 mg tablet (Hyzaar) Patient History Medical History Hepatic steatosis Hypertension Hypothyroidism Insomnia Surgical History History of cataract surgery History of colonoscopy History of tonsillectomy Family History Father, age 55 of pulmonary disease and alcoholism Mother, age 90 of uncertain causes. Anxiety Mother Kidney stone Sister Lung disease Father Denies family history of Ovarian cancer Prostate cancer Myocardial infarction Breast cancer Colorectal cancer Social History Smoking Status: Never smoker Tobacco Type: Cigarettes Age Started Using Tobacco: 20; Age Quit Using Tobacco: 60; Cigarettes Per Day: social smoker, off and on; Second Hand Exposure: No; Do You Dip or Chew Tobacco: No; Tobacco Cessation Education Requested by Patient: No Hx Alcohol Use: No Hx Substance Use: No Preferred Language: Lithuanian Communication Ability: Impaired Visual Impairment: No Limitations Hearing Ability: Normal Neurourologist Required: No Beliefs That Will Affect Care: None marital status: Current Living Situation: Spouse Current Living Situation Comment: lives at home with . 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 Weight down 6 pounds over the past year. BP predominantly hypertensive this admission. Pulse currently 100 bpm and irregular. Skin: Multiple scattered torso and upper extremity ecchymoses, no generalized lesions. HEENT: unremarkable. Neck: Obvious bruits, jugular venous pulse at the clavicle at 90 degrees. Lungs: clear and equal breath sounds. Cardiac: Irregular/borderline tachycardic rhythm, intact aortic closure sound, 3/6 apical holosystolic murmur radiating to the axilla. Abdomen: benign. Extremities: no edema, lower extremity pulses nonpalpable but extremities warm with good capillary refill. Neurologic: Answers simple questions, tangential conversation with limited insight, grossly nonfocal. Results & Data ([facility]) Vital Signs (Past 12 Hours) Vital Signs Temp Pulse Pulse Resp BP BP Pulse Ox 09/18/20 11:15 97.7 F 89 18 154/60 H 97 09/18/20 09:18 70 09/18/20 07:00 97.9 F 89 18 177/70 H 170/62 H 96 09/18/20 04:31 98.1 F 104 H 18 143/60 H 97 Laboratory Results CBC unremarkable. Initial labs notable for hypomagnesemia and hypokalemia, potassium remains low at 3.4 today. Creatinine 1.07. Troponin 0.038. Diagnostic Findings 2019 Echocardiogram as noted in HPI. Serial ECGs on the day of admission and the day after showed sinus bradycardia with marked first-degree AV block and long QT-U, one of the ECG shows Mobitz 1 type second-degree AV block. ECG today showed atrial fibrillation with controlled ventricular response of 88 bpm and persistently prolonged QT-U. Chest x-ray showed a left basilar opacity, otherwise unremarkable. 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 CT angiogram of the neck showed severe right vertebral artery stenosis and possibly significant internal carotid stenoses (motion artifact precludes definitive interpretation). Carotid study from 2019 showed greater than 70% left internal carotid stenosis, 50 to 70% right internal carotid stenosis. Lower extremity arterial Dopplers from 2019 showed mild to moderate proximal to mid vessel disease with occlusive distal limb disease. PG Care Time/CCT Total # of Minutes Spent Total Time Spent with Patient: Total time spent is greater than 50% in coordination of care (as documented) at patient's floor/unit and/or counseling patient: Coding Level of Care Code 98028 Initial Inpt Care Lvl 3 Diagnoses Paroxysmal A-fib I48.0 Hypokalemia E87.6 Bradycardia R00.1 Altered mental status R41.82 Altered mental status type: unspecified Mitral regurgitation I34.0 Vertebral artery stenosis I65.09 Hypomagnesemia E83.42 Hypertension I10 (1) Altered mental status Altered mental status type: unspecified Qualified Code(s): R41.82 - Altered mental status, unspecified
--- NOTE | 2020-09-18 15:06 | Electrocardiogram Report ---
Test Reason : Blood Pressure : / mmHG Vent. Rate : 088 BPM Atrial Rate : 087 BPM P-R Int : 000 ms QRS Dur : 094 ms QT Int : 492 ms P-R-T Axes : 000 045 113 degrees QTc Int : 595 ms Atrial fibrillation with premature ventricular or aberrantly conducted complexes Nonspecific ST and T wave abnormality Prolonged QT Abnormal ECG When compared with ECG of 13-SEP-2020 09:59, Atrial fibrillation has replaced Sinus rhythm Vent. rate has increased BY 35 BPM Confirmed by Vini Robbins ([id number]) on 09/18/2020 3:06:40 PM Referred By: REFERRED SELF Confirmed By:Vini Robbins
--- NOTE | 2020-09-18 16:36 | Hospitalist Progress Note ---
Date of Service September 18, 2020 Assessment & Plan (1) Acute encephalopathy: Plan: - Presented with confusion/significant agitation - likely related to stopping his home chronic Ativan. Improved since admission but continues to have some agitation-is upset about having to go to a rehab facility and is difficult to get him settled down - Ativan was resumed - received 1 mg IV in the ambulance then 2 mg IV in the ER. Now remains on lorazepam 0.5 mg p.o. twice daily standing order - Infectious work up neg - stopped Cefepime after 24 hours. 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 - PT/OT recommending SNF placement -awaiting a bed - Chest XR on 09/12/20 showed a non-specific opacity of the left lateral lung base. Repeat chest XR 2V to r/o developing pneumonia as source of persistent confusion-shows improvement in left-sided opacity yet he has no symptoms of pneumonia -TSH normal -Also with elevated blood pressures-may be some hypertensive encephalopathy component (2) Paroxysmal A-fib: Plan: Found to have new onset atrial fibrillation with variable rate starting on 09/17 -Appreciate cardiology consultation -His home metoprolol had been held for bradycardia-we will restart at a lower dose of metoprolol 12.5 mg p.o. 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 - Started Hydralazine 50 mg TID on 09/15 as BP remained elevated-now improving. -Added metoprolol tartrate 12.5 mg p.o. twice daily back on board on 09/18 for atrial fibrillation as above (5) Hepatic steatosis: Plan: - Chronic. - Did have elevated T. bili, AST - now improved. Mild rhabdo at admission. Patient did mention several times regarding a previous hx of heavy alcohol use with partying, poker games etc, but denies alcohol use prior to admission. (6) Fever: Plan: - Tm of 38 while in ER. Unclear source and has not returned but did receive cefepime for 24 hours - Patient has been afebrile for several days - Infectious work up was negative and antibiotics have since been stopped (7) Elevated CK: Plan: - NSS x 2 liters was given - Repeat CK improved from 2083 --> 1053 --> 239. -Mild rhabdomyolysis secondary to agitation and confusion (8) Bradycardia: Plan: - Home Metoprolol was held shortly after admission due to bradycardia. Now with rapid atrial fibrillation as above (9) Hypokalemia: Plan: Hypokalemia persists but is improving Replace again with a total of 60 mEq of potassium chloride orally today Follow BMP and magnesium in the morning (10) Hyperbilirubinemia: Plan: Now improved as above, 2.2 at the peak here but only AST minimally elevated and otherwise alkaline phosphatase normal No abdominal pain No imaging performed Has had elevated total bilirubin in the past several years With fatty liver known based on CT of the abdomen/pelvis from 2017 It is possible that perhaps he had a gallbladder issue upon admission, however he has no abdominal pain or nausea and his LFTs have improved-he did receive cefepime upon admission which may have treated this partially -Check gallbladder ultrasound Follow LFTs in the morning (11) Vertebral artery stenosis: Plan: Noted to have 80% stenosis of the right vertebral artery but this does not correlate with his symptoms upon admission -Restart home aspirin and statin (12) Hypothyroidism: Plan: TSH normal here Is listed as a diagnosis but not on medication for this at home (13) 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 Dispo: Needs SNF placement - case management involved and Agnieszka [facility] has a bed on Friday, however the patient is very upset about having to go to rehab. His is encouraging him to go. I do not think it would be safe for him to go home at this time Admission and Anticipated Discharge Date Admission Date: September 12, 2020 Subjective Pt agitated about having to go to rehab and says it's a stress on his . His at the bedside states that it is not a stress but he is very upset about it and yelling. He denies any history of bleeding. 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 He denies chest pain or shortness of breath Tele with Afib with rates 80s-150s at times in the last 24 hours. It appears this Afib started about yesterday morning. He is completely unaware of it. Review of Systems Review of Systems: All systems reviewed & are unremarkable except as noted in HPI & below Physical Exam Constitutional: WD/WN, vitals as above Eyes: + anicteric sclerae Neck: trachea midline, no thyromegaly Respiratory: normal respiratory effort, lungs clear to auscultation Cardiovascular: Rate/Rhythm: regular rate and + irregularly irregular Heart Sounds: no murmur Chest (Breasts): Chest: normal inspection of chest Gastrointestinal (Abdomen): normal bowel sounds, soft, nontender, no hepatosplenomegaly Musculoskeletal: Extremities: extremities normal to inspection; no cyanosis and no clubbing Skin: no rashes, warm and dry Neurologic: moves all extremities and awake; no focal motor deficits Psychiatric: Orientation: alert, oriented to person, oriented to place and cooperative; + not oriented to time Affect: + irritable affect Lymphatic: no lymphedema Results & Data Results & Data ([facility]) Vital Signs (Past 12 Hours) Vital Signs Temp Pulse Pulse Resp BP BP Pulse Ox 09/18/20 16:00 36.5 C 89 18 134/70 95 09/18/20 14:49 105 H 09/18/20 11:15 36.5 C 89 18 154/60 H 97 09/18/20 09:18 70 09/18/20 07:00 36.6 C 89 18 177/70 H 170/62 H 96 Laboratory Results 09/18/20 Range/Units 06:21 Sodium 137 (136-145) mmol/L Potassium 3.4 L (3.5-5.1) mmol/L Chloride 104 (98-107) mmol/L Carbon Dioxide 29 (21-32) mmol/L Anion Gap 4.0 (3-11) BUN 23 H (7-18) mg/dl Creatinine 1.07 (0.6-1.4) mg/dl Est Cr Clr Drug Dosing 43.9 ml/min Est GFR ( Amer) 73.0 ml/min Est GFR (Non-Af Amer) 63.0 ml/min BUN/Creatinine Ratio 21.3 H (10-20) Glucose 114 H (70-99) mg/dl Calcium 9.2 (8.5-10.1) mg/dl PG Care Time/CCT Total # of Minutes Spent Total Time Spent with Patient: Total time spent is greater than 50% in coordination of care (as documented) at patient's floor/unit and/or counseling patient: Coding Level of Care Code 85015 Subseq Hosp Care Lvl 3 Diagnoses 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 Acute encephalopathy G93.40 Hyperbilirubinemia E80.6 Paroxysmal A-fib I48.0 Vertebral artery stenosis I65.09 Hypothyroidism E03.9 DVT prophylaxis Z29.9 Falls [id number]
[2020-09-18] MEDS: METOPROLOL TARTRATE 25 MG TAB PO SCH (17:57)
[2020-09-19] MEDS ORDERED: amLODIPine BESYLATE 5 MG TAB PO SCH
[2020-09-19 06:29] LABS: Basophils # (auto) 0.05 K/uL (0-0.2); Basophils % (auto) 0.6 %; Eosinophils # (auto) 0.41 K/uL (0-0.5); Eosinophils % (auto) 4.9 %; Hematocrit (blood only) 35.5 % (42-52); Hemoglobin 12.6 g/dL (14.0-18.0); Immature Granulocytes # (auto) 0.04 K/uL (0.00-0.02); Immature Granulocytes % (auto) 0.5 %; Lymphocytes # (auto) 0.89 K/uL (1.2-3.4); Lymphocytes % (auto) 10.6 %; Mean Corpuscular Hemoglobin 33.2 pg (25-34); Mean Corpuscular Hgb Conc 35.5 g/dL (32-36); Mean Corpuscular Volume 93.7 fL (80-100); Mean Platelet Volume 8.9 fL (7.4-10.4); Monocytes # (auto) 1.15 K/uL (0.11-0.59); Monocytes % (auto) 13.8 %; Neutrophils # (auto) 5.82 K/uL (1.4-6.5); Neutrophils % (auto) 69.6 %; Platelet Count 195 K/uL (130-400); RDW Coefficient of Variation 15.2 % (11.5-14.5); RDW Standard Deviation 51.3 fL (36.4-46.3); Red Blood Count 3.79 M/uL (4.7-6.1); White Blood Count 8.36 K/uL (4.8-10.8)
[2020-09-19 07:01] LABS: Albumin Level 3.3 gm/dl (3.4-5.0); BUN Creatinine Ratio 23.7 (10-20); Bilirubin Direct 0.4 mg/dl (0-0.2); Creatinine Clr Calc Pharmacy 48.6 ml/min; Est GFR (African American) 84.3 ml/min; Est GFR (Non-African American) 72.7 ml/min; Magnesium 1.5 mg/dl (1.8-2.4); Potassium 3.9 mmol/L (3.5-5.1)
[2020-09-19 07:04] LABS: Bilirubin,Total 1.3 mg/dl (0.2-1); Phosphorus 2.9 mg/dl (2.5-4.9); Total Protein 6.4 gm/dl (6.4-8.2)
--- NOTE | 2020-09-19 07:36 | Ultrasound Report ---
US gallbladder CLINICAL HISTORY: elevated LFTs,fever,r/o acute julia COMPARISON STUDY: CT of the abdomen and pelvis April 30, 2016. FINDINGS: Hepatic echogenicity is mildly increased. There is no biliary ductal dilatation. The common bile duct measures 3 mm in caliber. Pancreas is unremarkable by sonography. No gallstones are noted. No gallbladder wall thickening. There is no right hydronephrosis. A suspected 5 mm calculus within l ower pole of the right kidney is noted. IMPRESSION: 1. No gallstones or biliary ductal dilatation. 2. No right hydronephrosis. Suspected 5 mm right renal calculus. 3. Probable hepatic steatosis. ACT 112: Negative or not required by law. Electronically signed by: Jeremiah Villaseñor M.D. 09/19/2020 7:34 AM
[2020-09-19] MEDS: amLODIPine BESYLATE 5 MG TAB PO SCH (08:04)
[2020-09-19] MEDS: hydrALAZINE TAB 50 MG TAB PO SCH ×2 (08:04→14:16)
[2020-09-19] MEDS: METOPROLOL TARTRATE 25 MG TAB PO SCH (08:04)
[2020-09-19] MEDS: LOSARTAN/HCTZ 50/12.5MG TAB PO SCH (08:04)
[2020-09-19] MEDS: POTASSIUM CHLORIDE CRTAB 20 MEQ TABCR PO SCH (08:06)
[2020-09-19] MEDS: LORazepam 0.5 MG TAB PO SCH (08:09)
[2020-09-19] MEDS ORDERED: ASPIRIN 81 MG ECTAB PO SCH (09:00)
[2020-09-19] MEDS ORDERED: ROSUVASTATIN CALCIUM 5 MG TAB PO SCH (09:00)
[2020-09-19] MEDS: MAGNESIUM SULFATE / D5W 1 GM/100 ML BAG IV SCH ×2 (11:49→14:09)
--- NOTE | 2020-09-19 14:01 | Cardiology Progress Note ---
Date of Service September 19, 2020 Assessment & Plan (1) Paroxysmal A-fib: Plan: Patient is doing well clinically and has returned to sinus rhythm on low-dose beta-madina (metoprolol tartrate 12.5 mg twice daily). No evidence of bradycardia. Would continue metoprolol upon discharge (could change to metoprolol succinate 25 mg daily for convenience). Hopefully, his atrial fibrillation was a result of his hypokalemia/hypomagnesemia and will be less likely to recur if these are both addressed (would discharge with both potassium and magnesium supplementation). As such, could defer decision on anticoagulation. If he is consistently in sinus at the time of medical follow-ups, given his risk of falls, reasonable to hold on anticoagulation in the near term. (2) Hypomagnesemia: (3) Bradycardia: (4) Hypertension: Plan: BP improved. May need to reevaluate role of hydrochlorothiazide given his electrolyte abnormalities, but given difficulty controlling his blood pressure and the general need for a diuretic in this circumstance, could continue HCTZ with magnesium and potassium supplements. As noted, would allow at mild to moderate hypertension given his cerebrovascular disease, in order to maintain cerebral perfusion pressure. Admission and Anticipated Discharge Date Admission Date: September 12, 2020 Subjective Patient was alert and appropriate, was eating lunch. He had no complaints, noting no chest pain, subjective palpitations, lightheadedness, or dyspnea. Current telemetry shows sinus rhythm in the 70 bpm range, it was unclear at what point he converted from atrial fibrillation to sinus rhythm, but his heart rate appears to be well controlled over the past 24 hours. Physical Exam Physical Exam: No distress. Systolic blood pressure 134-180 mmHg range, diastolic normal. Pulse currently 72 bpm and regular. Skin: Multiple scattered torso and upper extremity ecchymoses, no generalized lesions. HEENT: unremarkable. Neck: No obvious bruits, jugular venous pulse at the clavicle at 90 degrees. Lungs: clear and equal breath sounds. Cardiac: regular rhythm, intact aortic closure sound, 3/6 apical holosystolic murmur radiating to the axilla. Abdomen: benign. Extremities: no edema, lower extremity pulses nonpalpable but extremities warm with good capillary refill. Neurologic: Affect seems appropriate, grossly nonfocal. Results & Data ([facility]) Vital Signs (Past 12 Hours) Vital Signs Temp Pulse Pulse Resp BP Pulse Ox 07/27/21 11:59 98.4 F 68 18 145/59 H 98 09/19/20 07:47 98.1 F 81 18 180/67 H 95 09/19/20 07:25 68 Laboratory Results Potassium 3.9. Magnesium 1.5. Creatinine 0.95. PG Care Time/CCT Total # of Minutes Spent Total Time Spent with Patient: Total time spent is greater than 50% in coordination of care (as documented) at patient's floor/unit and/or counseling patient: Coding Level of Care Code 95220 Subseq Hosp Care Lvl 3 Diagnoses Paroxysmal A-fib I48.0 Hypomagnesemia E83.42 Bradycardia R00.1 Hypertension I10
[2020-09-19] MEDS ORDERED: amLODIPine BESYLATE 5 MG TAB PO ONE (17:56)
--- NOTE | 2020-09-19 18:04 | Discharge Summary ---
Date of Service September 19, 2020 Admission HPI Per Admitting Provider Dr. Joshua Arriaga is an 84yo male with history of HTN, Hypothyroidism and carotid disease presenting with confusion. Patient is unable to provide details of events prior to arrival. History obtained through chart review, discussion with ER attending and later discussion with at bedside. Patient lives at home with his and they have neighbors that check in on them periodically. 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 They called 911. EMS reports patient was agitated, flailing about and not following commands - he received Ativan 1 mg IV en route to [facility]. Upon arrival patient was agitated, flailing and yelling. He received additional 2mg of Ativan then 2mg ov Versed, 5mg of Haldol with good effect. Patient became febrile to 38 while in ER. at bedside later. She states that patient is typically quite rational. He becomes forgetful at times but she denies any underlying dementia. She states that her has "gone mad". She states that he hasn't slept well for days. He has fallen several times over the last few days, most recently was today when he experienced some minor head trauma. She reports that yesterday he took a short nap in the morning and again in the afternoon. She said he woke up and reported feeling very tired and he was acting strangely. She states he was insisting that she take his socks off for him when he wasn't wearing any socks. She said that as the day progressed he made less sense and became more agitated and confused. She does not think he has taken his medications for the last several days. She states that he does not drink EtOH or use any recreational drugs. No sick contacts, no recent travel, no tick exposure. No new medications. does not believe patient had a NUNEZ, CP, SOB, cough, abdominal pain, nausea, vomiting, diarrhea, rash ER Course: Ativan 2mg, Versed 2mg, Haldol 5mg, NSS, Mg x 1gm, Tylenol, Thiamine, Cefepime Principal Diagnosis Acute encephalopathy, uncontrolled hypertension, suspected lorazepam withdrawal, new onset atrial fibrillation Discharge Exam Constitutional WD/WN, vitals as above Eyes + anicteric sclerae ENMT external ear and nose normal, oropharynx normal Neck trachea midline, no thyromegaly Respiratory normal respiratory effort, lungs clear to auscultation Cardiovascular Rate/Rhythm: regular rate and regular rhythm Heart Sounds: no murmur Chest (Breasts) Chest: normal inspection of chest Gastrointestinal (Abdomen) normal bowel sounds, soft, nontender, no hepatosplenomegaly Musculoskeletal Extremities: extremities normal to inspection; no cyanosis and no clubbing Skin no rashes, warm and dry Neurologic moves all extremities and awake; no focal motor deficits Psychiatric Orientation: alert, oriented to person, oriented to place and cooperative; + not oriented to time (Knows year and month but not date) Lymphatic no lymphedema Discharge Data Allergies Allergy/AdvReac Type Severity Reaction Status Date / Time No Known Drug Allergies Allergy Verified 07/07/20 10:39 Consultations 09/12/20 14:38 ED Decision to Admit Stat 09/18/20 12:06 Consult Cardiology Routine Ordered Studies 09/12/20 12:23 CT angio head w con Stat CT angio neck with con Stat CT head/brain wo con Stat 09/12/20 12:25 CT cervical spine wo con Stat 09/15/20 07:51 MR brain wo/w con Urgent 09/19/20 00:00 US gallbladder Routine Hospital Course (1) Acute encephalopathy: - Presented with confusion/significant agitation - likely related to stopping his home chronic Ativan and also possibly due to uncontrolled hypertension. He has significantly improved since admission but continues to be quite agitated about having to stay and for recommendation for rehab placement. He is adamant that he will not go to rehab and he prefers to go home. He reports that he has a walker at home that he can use. He is certainly more oriented and able to make his own decisions at this time. He is not excepting of the recommendations made by physical therapy and Occupational Therapy to go to rehab-I have counseled him on the risk of falls. His is at the bedside and she is also in agreement with him coming home. They both feel that they can manage at home. His oral Ativan was resumed at a lower dose of 0.5 mg p.o. twice daily scheduled-previously he was taking 2 mg every night at bedtime - Infectious work up neg - stopped Cefepime after 24 hours. 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 - Chest XR on 09/12/20 showed a non-specific opacity of the left lateral lung base. Repeat chest XR 2V to r/o developing pneumonia as source of persistent confusion-shows improvement in left-sided opacity yet he has no symptoms of pneumonia -TSH normal -Also with elevated blood pressures-may be some hypertensive encephalopathy component which is now much improved Mildly elevated LFTs-gallbladder ultrasound performed which was normal (2) Paroxysmal A-fib: Found to have new onset atrial fibrillation with variable rate starting on 09/17 which then resolved within 24 hours back to a sinus rhythm after restarting home metoprolol -Appreciate cardiology consultation -His home metoprolol had been held for bradycardia-we have since restarted it at a lower dose of metoprolol 12.5 mg p.o. twice daily Appreciate cardiology consultation -Cardiology does not recommend anticoagulation at this time and I agree given that he has had multiple falls and his atrial fibrillation was short-lived This was all discussed with the patient and his at the bedside (3) Falls: Multiple falls, secondary possibly to benzodiazepine withdrawal Now improved but PT/OT recommending rehab and patient is refusing at this time He will go home and use a walker at home Fortunately, his strength did improve on reassessment on the day of discharge with PT and OT (4) Hypertension: - D/c'ed home Metoprolol d/t bradycardia.--> Blood pressure then became quite elevated but now is much improved - Continued Losartan/HCTZ; also added Norvasc 10 mg qAM. - Started Hydralazine 50 mg TID -Added metoprolol tartrate 12.5 mg p.o. twice daily back on board on 09/18 for atrial fibrillation as above I gave the patient home packs of all of his new medications for the next 24 hours until his medications get ordered in from [facility] Follow-up with PCP (5) Hepatic steatosis: - Chronic. - Did have elevated T. bili, AST - now improved. Mild rhabdo at admission. Patient did mention several times regarding a previous hx of heavy alcohol use with partying, poker games etc, but denies alcohol use prior to admission. (6) Fever: - Tm of 38 while in ER. Unclear source and has not returned but did receive cefepime for 24 hours - Patient has been afebrile for many days - Infectious work up was negative and antibiotics have since been stopped (7) Elevated CK: - NSS x 2 liters was given - Repeat CK improved from 2083 --> 1053 --> 239. -Mild rhabdomyolysis secondary to agitation and confusion (8) Bradycardia: - Home Metoprolol was held shortly after admission due to bradycardia. Then with rapid atrial fibrillation as above which is now resolved (9) Hypokalemia: Hypokalemia persists but is improving-likely secondary to HCTZ use Replaced with aggressive potassium chloride and should remain on potassium chloride 20 mEq p.o. twice daily Follow-up BMP with PCP Also continue to replace magnesium orally upon discharge (10) Hyperbilirubinemia: Now improved as above, 2.2 at the peak here but only AST minimally elevated and otherwise alkaline phosphatase normal No abdominal pain Gallbladder ultrasound negative except for hepatic steatosis Has had elevated total bilirubin in the past several years With fatty liver known based on CT of the abdomen/pelvis from 2017 (11) Vertebral artery stenosis: Noted to have 80% stenosis of the right vertebral artery but this does not correlate with his symptoms upon admission -Continue home aspirin and statin (12) Hypothyroidism: TSH normal here Is listed as a diagnosis but not on medication for this at home (13) 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 Dispo: Needs SNF placement -as above-patient is adamant about not going to rehab and is in agreement with this Patient adamant about being discharged home on the evening of 09/19. He has a taxi arranged and has a walker that he will use once he gets home. I did warn him about the risk of falls, but he is oriented at this time and is able to make his own decisions. Total Time Total Time Spent Total Time Spent (In Minutes): 40 minutes Discharge Plan Discharge Items Patient Disposition: Home - Self-Care Reason For Visit: AMS Discharge Diagnosis: Lorazepam withdrawal, Confusion, New onset atrial fibrillation, uncontrolled high blood pressure Condition on Discharge: Fair Activity: As commented below Lifting: Gradually increase as tolerated Bathing: No limitations Exercise/Sports: Gradually increase as tolerated Driving/Machine Use: No driving recommended Non-emergency contact: Primary Care Provider Call non-emergency contact if: you have any medication questions and your symptoms worsen Follow-up/Referrals: ProNicolas MD [Primary Care Provider] - (Follow-up within 1 to 2 weeks- please call to schedule an appointment.) Diet: Heart Healthy Addtl Attending Provider Instructions: You are admitted with confusion which may have been due to your high blood pressures as well as missing doses of your lorazepam. Your lorazepam was restarted and your blood pressure was controlled by adding 2 new medications-1 is called amlodipine, and the other is called hydralazine. Your potassium and magnesium levels were also low and you should remain on potassium and magnesium pills as prescribed. Your heart went into an irregular heart rhythm called atrial fibrillation while you are here but then this resolved. You should continue on metoprolol but at a lower dose of 12.5 mg twice a day. Your new prescriptions were called into your pharmacy. You should use a walker at all times when ambulating to help you prevent falls. It was recommended that you go to a alf facility for rehabilitation therapy, but you declined at this time and chose to go home instead. Please follow-up with your primary care physician within 1 to 2 weeks. Pending Studies at Discharge: No Stand-Alone Forms: [facility] Medications and DC Order Prescriptions: New hydralazine 50 mg Tablet 50 mg PO TID Qty: 90 RF: 0 metoprolol tartrate 25 mg Tablet 12.5 mg PO BID Qty: 30 RF: 0 potassium chloride [Klor-Con M20] 20 mEq Tablet,Er Particles/Crystals 20 meq PO BID Qty: 60 RF: 0 magnesium oxide 400 mg (241.3 mg magnesium) Tablet 400 mg PO QAM Qty: 30 RF: 0 amlodipine 10 mg tablet 10 mg PO DAILY Qty: 30 RF: 0 Continued rosuvastatin [Crestor] 5 mg tablet 5 mg PO DAILY Qty: 90 RF: 3 naproxen sodium [Aleve] 220 mg tablet See Rx Instructions PO DAILY PRNRF: 0 PreserVision AREDS 14,320-226-200 [id number] capsule 1 cap PO BID Qty: 60 RF: 0 coenzyme Q10 100 mg capsule 100 mg PO DAILY RF: 0 aspirin [Ecotrin Low Strength] 81 mg Tablet,Delayed Release (Dr/Ec) 81 mg PO QAM Qty: 30 RF: 0 losartan-hydrochlorothiazide [Hyzaar] 50-12.5 mg tablet 1 tab PO BID RF: 0 Changed lorazepam [Ativan] 1 mg tablet 0.5 mg PO BID Qty: 10 RF: 0 Discontinued metoprolol tartrate 50 mg tablet 50 mg PO BID Qty: 135 RF: 3 Discharge Orders: Discharge Order (Routine); Ordered 09/19/20 Ordered By: Char Gutierrez Admission Data Admit Date/Time: 09/12/20 14:52 Attending Provider: Char Gutierrez Admit Provider: Aminah Lee Primary Care Provider: Nicolas Foreman Other Providers: Aminah Lee ; Nicholas Aaron [facility] ; [place] ; Vini Robbins Other Interventions: Discharge Summary Assessment (RN) Last Done: 09/19/20 17:46 Coding Level of Care Code D/C DAY MANAGEMENT >30 MINS Diagnoses Acute encephalopathy G93.40 Paroxysmal A-fib I48.0 Falls W19.XXXA Hypertension I10 Hepatic steatosis K76.0 Fever R50.9 Elevated CK R74.8 Bradycardia R00.1 Hypokalemia E87.6 Hyperbilirubinemia E80.6 Vertebral artery stenosis I65.09 Hypothyroidism E03.9 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
[2020-09-19] MEDS ORDERED: METOPROLOL TARTRATE 25 MG TAB PO SCH ×2 (21:00)
[2020-09-19] MEDS ORDERED: hydrALAZINE TAB 50 MG TAB PO SCH ×2 (21:00)
[2020-09-20] MEDS ORDERED: MAGNESIUM OXIDE 400 MG TAB PO SCH (09:00)
== END 2020-09-19 19:08 | DRG 896 ==
LOC: ED 12:16 → SUATTDRO 14:52 → 2N 14:52

== ENCOUNTER 2021-05-18 01:19 | Inpatient (IN) ==
--- NOTE | 2021-05-18 01:32 | Emergency Department Note ---
Impression & Plan Symptomatic anemia ADMIT ED Provider Note HPI: The patient is an 85-year-old gentleman history of hypertension, paroxysmal atrial fibrillation not on OAC, who presents emergency department with a chief complaint of generalized weakness, shortness of breath, states he is having difficulty ambulating throughout his home for the past 1 to 2 days. Patient denies any chest pain, states at times when he ambulates he does get a dizzy sensation. Arrival to the ED the patient is somewhat disheveled appearing but he is alert, he is in no acute distress, he is hemodynamically stable on arrival and saturating well on room air. ROS: - General: Generalized weakness, difficulty with ambulation - Pulmonary: Shortness of breath *10 point review systems was conducted and is otherwise negative unless stated above *Outpatient medications and allergy history reviewed PE: General: Pale-appearing, alert, NAD HEENT: Normocephalic, atraumatic Eyes: Extraocular eye movement is intact, no scleral erythema Pulmonary: Clear to auscultation bilaterally, no wheezing Cardio: Regular rate and rhythm GI: Abdomen is soft, nontender : No suprapubic tenderness MSK: No evidence of trauma or malformation of the extremities, no edema Skin: No evidence of rash Neuro: Alert, no focal deficits Psychiatric: Cooperative security monitor: - An order was placed for continuous cardiac monitoring - Patient was noted to be in Sinus rhythm with rate of 70 EKG: Rate: 69 Rhythm: Sinus rhythm Intervals: Within normal limits ST changes: No ST elevation Time: 0122 Medical Decision Making: The patient is an 85-year-old gentleman who presented to the emergency department with multiple issues, states he has had generalized weakness and difficulty ambulating at home recently.Shortly after arrival IV was established, lab work obtained, patient was placed on the media monitor, he is hemodynamically stable on arrival, his lab work does show evidence of anemia with a hemoglobin of 6.9 which does appear new in comparison to the lab work from earlier this month. Patient denies any blood per rectum, denies any hematemesis, unclear source at this time. Patient was ordered 2 units packed red blood cells for transfusion, troponin is negative, EKG does not show any ischemic changes, patient is in sinus rhythm. He is not anticoagulated for his history of paroxysmal atrial fibrillation. Given the patient's symptomatic anemia, will transfuse with 2 units packed red blood cells, patient was consented at the bedside, case was discussed with the on-call hospitalist Dr. Lee, and the patient was admitted in stable condition for further care and work-up for symptomatic anemia. * CRITICAL CARE TIME: ( 37 ) minutes - Management of symptomatic anemia with hemoglobin less than 7.0 requiring packed red blood cell transfusion, time spent at the bedside, arrangement of admission Diagnosis: 1. Symptomatic anemia 2. Encounter for packed red blood cell transfusion for hemoglobin less than 7.0 3. Ambulatory dysfunction 4. Dyspnea, nonspecific Disposition: ADMIT Napoleon Hamlin DO Emergency Medicine Past Med/Surg History Medical History (Updated 05/18/21 @ 03:02 by Napoleon Hamlin DO) Alcohol abuse Hepatic steatosis Hyperglycemia Hypertension Hypertensive urgency Hypothyroidism Insomnia Surgical History History of cataract surgery History of colonoscopy History of tonsillectomy Family History Mother , age 90 of uncertain causes. Anxiety Father , age 55 of pulmonary disease and alcoholism Lung disease Sister Kidney stone Denies family history of Ovarian cancer Prostate cancer Myocardial infarction Breast cancer Colorectal cancer Social History Smoking Status: Never smoker Tobacco Type: Cigarettes Age Started Using Tobacco: 20; Age Quit Using Tobacco: 60; Cigarettes Per Day: social smoker, off and on; Second Hand Exposure: No; Hx Alcohol Use: No Hx Substance Use: No Preferred Language: French Communication Ability: Impaired Visual Impairment: No Limitations Hearing Ability: Normal Infectious Waste Technician Required: No Beliefs That Will Affect Care: None marital status: Current Living Situation: Spouse Current Living Situation Comment: lives at home with . 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 Feels Safe at Home: Yes Childhood Exposure to Second-Hand Smoke: Yes Dental Care, Regularly: No Physical Activity Frequency: Does not Exercise Seatbelt Use: always Sunscreen Use: No Assistive Devices: None Allergies Allergies Allergy/AdvReac Type Severity Reaction Status Date / Time No Known Drug Allergies Allergy Unknown Verified 05/18/21 01:32 Home Meds Home Medications Medication Instructions Recorded Confirmed coenzyme Q10 100 mg capsule 100 mg PO DAILY 12/14/18 05/18/21 Previous Rx's Medication Instructions Recorded aspirin 81 mg tablet,delayed 81 mg PO QAM #30 tab 05/03/18 release (Ecotrin Low Strength) vitamins A,C,P-ylrj-yjuwzs 14,320 1 cap PO BID #60 cap 08/05/18 unit-226 mg-200 unit capsule (PreserVision AREDS) magnesium oxide 400 mg (241.3 mg 400 mg PO QAM #30 tab 09/19/20 magnesium) tablet rosuvastatin 5 mg tablet (Crestor) 5 mg PO DAILY #90 tab 09/26/20 amlodipine 10 mg tablet 10 mg PO DAILY #90 tab 10/02/20 metoprolol tartrate 25 mg tablet 12.5 mg PO BID #90 tab 10/02/20 potassium chloride 40 mEq/15 mL 20 meq PO BID #1350 ml 04/10/21 oral liquid lorazepam 1 mg tablet (Ativan) 0.5 mg PO BID #30 tab 04/23/21 hydralazine 50 mg tablet 50 mg PO TID #270 tab 04/30/21 losartan 50 mg-hydrochlorothiazide 1 tab PO BID #90 tab 04/30/21 12.5 mg tablet (Hyzaar) Results & Data (ED) Vital Signs Vital Signs - 24 hr 05/18/21 01:12 05/18/21 01:15 05/18/21 01:30 Temperature 37.2 C Temperature Source Oral Pulse Rate 69 Respiratory Rate 24 24 Respiratory Effort / Characteristics Short of Breath SOB on Exertion Respiratory Depth Normal Respiratory Pattern Regular Blood Pressure 136/107 H Blood Pressure [Right Arm] 137/60 Blood Pressure Mean 116 Blood Pressure Mean [Right Arm] 85 Blood Pressure Position Sitting Blood Pressure Position [Right Arm] Sitting Pulse Oximetry 97 97 96 Oxygen Delivery Method Room Air Room Air Room Air Sepsis Recent Fever Within 48 Hours No Sepsis New/Unexplained Change in Mental Status No Sepsis Action Taken by Nursing No Action Required Laboratory Data Result diagrams: 05/18/21 01:46 05/18/21 01:46 Lab Results 05/18/21 05/18/21 05/18/21 Range/Units 01:46 01:46 01:46 WBC 9.11 (4.8-10.8) K/uL RBC 2.16 L (4.7-6.1) M/uL Hgb 6.9 L* (14.0-18.0) g/dL Hct 19.9 L* (42-52) % MCV 92.1 (80-100) fL MCH 31.9 (25-34) pg MCHC 34.7 (32-36) g/dL RDW Std Deviation 56.1 H (36.4-46.3) fL RDW Coeff of Randall 17.0 H (11.5-14.5) % Plt Count 156 (130-400) K/uL MPV 9.1 (7.4-10.4) fL Immature Gran % (Auto) 0.3 % Neut % (Auto) 79.6 % Lymph % (Auto) 12.2 % [place] % (Auto) 6.9 % Eos % (Auto) 0.8 % Baso % (Auto) 0.2 % Neut # (Auto) 7.25 H (1.4-6.5) K/uL Lymph # (Auto) 1.11 L (1.2-3.4) K/uL [place] # (Auto) 0.63 H (0.11-0.59) K/uL Eos # (Auto) 0.07 (0-0.5) K/uL Baso # (Auto) 0.02 (0-0.2) K/uL Immature Gran # (Auto) 0.03 H (0.00-0.02) K/uL RBC Morphology Unremarkable PT 11.9 (9.0-12.0) Seconds INR 1.1 (0.9-1.1) APTT 24.1 (21.0-31.0) Seconds PTT Ratio 0.9 Sodium 132 L (136-145) mmol/L Potassium 3.8 (3.5-5.1) mmol/L Chloride 99 (98-107) mmol/L Carbon Dioxide 23 (21-32) mmol/L Anion Gap 10 (3-11) BUN 76 H (6-23) mg/dl Creatinine 1.19 (0.6-1.4) mg/dl Est Cr Clr Drug Dosing 46.9 ml/min Est GFR ( Amer) 64.2 ml/min Est GFR (Non-Af Amer) 55.4 ml/min BUN/Creatinine Ratio 63.9 H (10-20) Glucose 129 H (70-99(Fasting)) mg/dl Calcium 8.5 (8.5-10.1) mg/dl Total Bilirubin 0.6 (0.2-1.0) mg/dl AST 13 (13-39) U/L ALT 11 (7-52) U/L Alkaline Phosphatase 53 (34-104) U/L Troponin I < 0.03 (0-0.04) ng/ml Total Protein 5.8 L (6.0-8.3) gm/dl Albumin 3.7 (3.4-5.0) gm/dl Globulin 2.1 L (2.5-4.0) gm/dl Albumin/Globulin Ratio 1.8 (0.9-2) Lipase 37 (11-82) U/L Discharge Plan Visit Data Chief Complaint: Weakness Stated Complaint: WEAKNESS/SHORT OF BREATH ED Provider: Napoleon Hamlin Discharge Problem: Symptomatic anemia Forms Stand Alone Forms: [facility] Prescriptions Prescriptions: No Action rosuvastatin [Crestor] 5 mg tablet 5 mg PO DAILY Qty: 90 RF: 3 amlodipine 10 mg tablet 10 mg PO DAILY Qty: 90 RF: 3 metoprolol tartrate 25 mg tablet 12.5 mg PO BID Qty: 90 RF: 3 potassium chloride 40 mEq/15 mL liquid 20 meq PO BID Qty: 1350 RF: 3 lorazepam [Ativan] 1 mg tablet 0.5 mg PO BID Qty: 30 RF: 0 hydralazine 50 mg tablet 50 mg PO TID Qty: 270 RF: 0 losartan-hydrochlorothiazide [Hyzaar] 50-12.5 mg tablet 1 tab PO BID Qty: 90 RF: 3 PreserVision AREDS [id number] capsule 1 cap PO BID Qty: 60 RF: 0 coenzyme Q10 100 mg capsule 100 mg PO DAILY RF: 0 aspirin [Ecotrin Low Strength] 81 mg Tablet,Delayed Release (Dr/Ec) 81 mg PO QAM Qty: 30 RF: 0 magnesium oxide 400 mg (241.3 mg magnesium) Tablet 400 mg PO QAM Qty: 30 RF: 0 Referrals Referrals: Nicolas Foreman MD [Primary Care Provider] -
[2021-05-18 02:14] LABS: INR 1.1 (0.9-1.1); Partial Thromboplastin Ratio 0.9; Partial Thromboplastin Time 24.1 Seconds (21.0-31.0); Prothrombin Time 11.9 Seconds (9.0-12.0)
[2021-05-18 02:20] LABS: Troponin I < 0.03 ng/ml (0-0.04)
[2021-05-18 02:21] LABS: Alanine Aminotransferase 11 U/L (7-52); Albumin Globulin Ratio 1.8 (0.9-2); Albumin Level 3.7 gm/dl (3.4-5.0); Alkaline Phosphatase 53 U/L (34-104); Anion Gap 10 (3-11); Aspartate Aminotransferase 13 U/L (13-39); BUN Creatinine Ratio 63.9 (10-20); Bilirubin,Total 0.6 mg/dl (0.2-1.0); Blood Urea Nitrogen 76 mg/dl (6-23); Calcium 8.5 mg/dl (8.5-10.1); Carbon Dioxide 23 mmol/L (21-32); Chloride 99 mmol/L (98-107); Creatinine Clr Calc Pharmacy 46.9 ml/min; Est GFR (African American) 64.2 ml/min; Est GFR (Non-African American) 55.4 ml/min; Globulin 2.1 gm/dl (2.5-4.0); Glucose 129 mg/dl (70-99(Fasting)); Lipase 37 U/L (11-82); Potassium 3.8 mmol/L (3.5-5.1); Sodium 132 mmol/L (136-145); Total Protein 5.8 gm/dl (6.0-8.3)
[2021-05-18] MEDS ORDERED: SODIUM CHLORIDE 0.9% 250 ML IV PRN ×2 (02:42→04:59)
[2021-05-18 02:43] LABS: Hematocrit (blood only) 19.9 % (42-52); Hemoglobin 6.9 g/dL (14.0-18.0); Mean Corpuscular Hemoglobin 31.9 pg (25-34); Mean Corpuscular Hgb Conc 34.7 g/dL (32-36); Mean Corpuscular Volume 92.1 fL (80-100); Mean Platelet Volume 9.1 fL (7.4-10.4); Platelet Count 156 K/uL (130-400); RDW Standard Deviation 56.1 fL (36.4-46.3); Red Blood Count 2.16 M/uL (4.7-6.1); White Blood Count 9.11 K/uL (4.8-10.8)
[2021-05-18 02:44] LABS: Basophils # (auto) 0.02 K/uL (0-0.2); Basophils % (auto) 0.2 %; Eosinophils # (auto) 0.07 K/uL (0-0.5); Eosinophils % (auto) 0.8 %; Immature Granulocytes # (auto) 0.03 K/uL (0.00-0.02); Immature Granulocytes % (auto) 0.3 %; Lymphocytes # (auto) 1.11 K/uL (1.2-3.4); Lymphocytes % (auto) 12.2 %; Monocytes # (auto) 0.63 K/uL (0.11-0.59); Monocytes % (auto) 6.9 %; Neutrophils # (auto) 7.25 K/uL (1.4-6.5); Neutrophils % (auto) 79.6 %; RBC Morphology Unremarkable
--- NOTE | 2021-05-18 03:57 | History & Physical Report ---
Date of Service May 18, 2021 Assessment & Plan (1) Symptomatic anemia: Plan: 85yo male presenting with symptomatic anemia. Normochromic/normocytic anemia with Hgb=6.9, Hct=19.9 (last values 12.3 and 35.9, respectively on 05/03/21). Normal INR and platelets. No laboratory evidence of hepatic disease. Elevated BUN of 76. Patient denies melena/hematochezia/hematemesis/hematuria. No prior transfusions. Ddx to include UGIB given elevated BUN, LGIB -Admit to medical, keep NPO -Check UA for hematuria, FOBT, TSH -Maintain 2 PIVs -CBC q 8 hours -2U PRBCs ordered - transfusion to begin in ER -Protonix 40mg IV BID -Hold ASA -GI Consultation appreciated (2) Hypertension: Plan: Blood pressure mildly elevated at present, 142/58 -Continue Amlodipine, Hydralazine, Losartan/HCTZ -Hold Metoprolol -Continue to monitor (3) Hypothyroidism: Plan: Chronic. Elevated TSH on last check at 6.02 (05/03/21) -Check TSH (4) Paroxysmal A-fib: Plan: Presently in NSR. No anticoagulation -Holding metoprolol in setting of presumed bleed -Monitor (5) Anxiety: Plan: Chronic -Continue Ativan PRN Plan: F/E/N - Heplock. Monitor electrolytes. NPO for now Ppx - SCDs Code - Full Dispo - Admit to medical Zyrtec for allergy symptoms History of Present Illness Chief Complaint: weakness, fatigue, SOB/PRABHAKAR Primary Care Provider: Nicolas Foreman MD Joshua Arriaga is an 85yo male with history of HTN, Hypothyroidism, PAF not on anticoagulation presenting with symptomatic anemia. Patient finds it difficult to remember when symptoms began, endorses at least several weeks of progressive SOB, PRABHAKAR with decreased exercise tolerance, fatigue, weakness, dizziness and pre-syncope. He becomes very short of breath with minimal activity. He denies chest pain, palpitations, cough, abdominal pain. Denies nausea, vomiting, hematemesis or coffee ground emesis. Reports occasional constipation and diarrhea but no blood. He endorses some nasal congestion, watery eyes and post-nasal drip. Patient has had screening colonoscopies, no prior EGD that he can recall. No history of blood transfusion. ER Course: Hgb=6.9, Hct=19.9. Transfusion ordered Allergies Allergy/AdvReac Type Severity Reaction Status Date / Time No Known Drug Allergies Allergy Unknown Verified 05/18/21 01:32 Home Medications Medication Instructions Recorded Confirmed Type aspirin 81 mg tablet,delayed 81 mg PO QAM #30 tab 05/03/18 05/18/21 Rx release (Ecotrin Low Strength) vitamins A,C,S-errs-krympa 14,320 1 cap PO BID #60 cap 08/05/18 05/18/21 Rx unit-226 mg-200 unit capsule (PreserVision AREDS) coenzyme Q10 100 mg capsule 100 mg PO DAILY 12/14/18 05/18/21 History magnesium oxide 400 mg (241.3 mg 400 mg PO QAM #30 tab 09/19/20 05/18/21 Rx magnesium) tablet rosuvastatin 5 mg tablet (Crestor) 5 mg PO DAILY #90 tab 09/26/20 05/18/21 Rx amlodipine 10 mg tablet 10 mg PO DAILY #90 tab 10/02/20 05/18/21 Rx metoprolol tartrate 25 mg tablet 12.5 mg PO BID #90 tab 10/02/20 05/18/21 Rx potassium chloride 40 mEq/15 mL 20 meq PO BID #1350 ml 04/10/21 05/18/21 Rx oral liquid lorazepam 1 mg tablet (Ativan) 0.5 mg PO BID #30 tab 04/23/21 05/18/21 Rx hydralazine 50 mg tablet 50 mg PO TID #270 tab 04/30/21 05/18/21 Rx losartan 50 mg-hydrochlorothiazide 1 tab PO BID #90 tab 04/30/21 05/18/21 Rx 12.5 mg tablet (Hyzaar) Past Med/Surg History Medical History Alcohol abuse Hepatic steatosis Hyperglycemia Hypertension Hypertensive urgency Hypothyroidism Insomnia Surgical History History of cataract surgery History of colonoscopy History of tonsillectomy Family History Mother , age 90 of uncertain causes. 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 Feels Safe at Home: Yes Childhood Exposure to Second-Hand Smoke: Yes Dental Care, Regularly: No Physical Activity Frequency: Does not Exercise Seatbelt Use: always Sunscreen Use: No Assistive Devices: None Review of Systems Review of Systems: All systems reviewed & are unremarkable except as noted in HPI & below Physical Exam Physical Exam: General: ill in appearance, NAD Skin: warm, dry, intact, no rashes or lesions, +Pallor of skin, oral mucosa and conjunctiva HEENT: NC/AT, PERRL, EOMI, anicteric sclera, conjunctiva without injection, external ear normal to inspection and nontender, nares patent, moist mucus membranes, dentition intact, no oropharyngeal lesions, neck supple, trachea midline, no LAD, no thyromegaly, no JVD Heart: +S1/S2, regular, no m/r/g Lungs: equal air entry bilaterally, no rales/rhonchi/wheezes Abd: +BS, soft, NT/ND, no masses/organomegaly/ascites Ext: warm, 2+ pulses in UE/LE bilaterally, no clubbing/cyanosis, edema of bilateral LE R > L, poorly kept toenails with onychomycosis Neuro: nonfocal, patient AA&O x 4, speech intact, no facial droop, moving all extremities on command with equal strength 5/5 Results & Data Results & Data ([facility]) Vital Signs (Past 12 Hours) Vital Signs Temp Pulse Resp BP BP Pulse Ox 05/18/21 03:12 72 17 142/58 H 100 05/18/21 02:45 68 19 131/76 100 05/18/21 01:30 96 05/18/21 01:15 24 137/60 97 05/18/21 01:12 37.2 C 69 24 136/107 H 97 Laboratory Results Laboratory Results WBC 9.11 K/uL (4.8-10.8) 05/18/21 01:46 RBC 2.16 M/uL (4.7-6.1) L 05/18/21 01:46 Hgb 6.9 g/dL (14.0-18.0) L* 05/18/21 01:46 Hct 19.9 % (42-52) L* 05/18/21 01:46 MCV 92.1 fL (80-100) 05/18/21 01:46 MCH 31.9 pg (25-34) 05/18/21 01:46 MCHC 34.7 g/dL (32-36) 05/18/21 01:46 RDW Std Deviation 56.1 fL (36.4-46.3) H 05/18/21 01:46 RDW Coeff of Randall 17.0 % (11.5-14.5) H 05/18/21 01:46 Plt Count 156 K/uL (130-400) 05/18/21 01:46 MPV 9.1 fL (7.4-10.4) 05/18/21 01:46 Immature Gran % (Auto) 0.3 % 05/18/21 01:46 Neut % (Auto) 79.6 % 05/18/21 01:46 Lymph % (Auto) 12.2 % 05/18/21 01:46 Cottle % (Auto) 6.9 % 05/18/21 01:46 Eos % (Auto) 0.8 % 05/18/21 01:46 Baso % (Auto) 0.2 % 05/18/21 01:46 Neut # (Auto) 7.25 K/uL (1.4-6.5) H 05/18/21 01:46 Lymph # (Auto) 1.11 K/uL (1.2-3.4) L 05/18/21 01:46 Cottle # (Auto) 0.63 K/uL (0.11-0.59) H 05/18/21 01:46 Eos # (Auto) 0.07 K/uL (0-0.5) 05/18/21 01:46 Baso # (Auto) 0.02 K/uL (0-0.2) 05/18/21 01:46 Immature Gran # (Auto) 0.03 K/uL (0.00-0.02) H 05/18/21 01:46 RBC Morphology Unremarkable 05/18/21 01:46 PT 11.9 Seconds (9.0-12.0) 05/18/21 01:46 INR 1.1 (0.9-1.1) 05/18/21 01:46 APTT 24.1 Seconds (21.0-31.0) 05/18/21 01:46 PTT Ratio 0.9 05/18/21 01:46 Sodium 132 mmol/L (136-145) L 05/18/21 01:46 Potassium 3.8 mmol/L (3.5-5.1) 05/18/21 01:46 Chloride 99 mmol/L (98-107) 05/18/21 01:46 Carbon Dioxide 23 mmol/L (21-32) 05/18/21 01:46 Anion Gap 10 (3-11) 05/18/21 01:46 BUN 76 mg/dl (6-23) H 05/18/21 01:46 Creatinine 1.19 mg/dl (0.6-1.4) 05/18/21 01:46 Est Cr Clr Drug Dosing 46.9 ml/min 05/18/21 01:46 Est GFR ( Amer) 64.2 ml/min 05/18/21 01:46 Est GFR (Non-Af Amer) 55.4 ml/min 05/18/21 01:46 BUN/Creatinine Ratio 63.9 (10-20) H 05/18/21 01:46 Glucose 129 mg/dl (70-99(Fasting)) H 05/18/21 01:46 Calcium 8.5 mg/dl (8.5-10.1) 05/18/21 01:46 Total Bilirubin 0.6 mg/dl (0.2-1.0) 05/18/21 01:46 AST 13 U/L (13-39) 05/18/21 01:46 ALT 11 U/L (7-52) 05/18/21 01:46 Alkaline Phosphatase 53 U/L (34-104) 05/18/21 01:46 Troponin I < 0.03 ng/ml (0-0.04) 05/18/21 01:46 B-Natriuretic Peptide 39 pg/ml (0-100) 05/18/21 03:02 Total Protein 5.8 gm/dl (6.0-8.3) L 05/18/21 01:46 Albumin 3.7 gm/dl (3.4-5.0) 05/18/21 01:46 Globulin 2.1 gm/dl (2.5-4.0) L 05/18/21 01:46 Albumin/Globulin Ratio 1.8 (0.9-2) 05/18/21 01:46 Lipase 37 U/L (11-82) 05/18/21 01:46 SARS-CoV-2, RNA, NAAT NEGATIVE (NEGATIVE) 05/18/21 02:42 Crossmatch See Detail 05/18/21 03:02 Code Status & VTE Plan VTE Prophylaxis Plan VTE Prophylaxis will be ordered: Yes PG Care Time/CCT Total # of Minutes Spent Total Time Spent with Patient: Total time spent is greater than 50% in coordination of care (as documented) at patient's floor/unit and/or counseling patient: Coding Level of Care Code 42061 Initial Inpt Care Lvl 3 Diagnoses Symptomatic anemia D64.9 Hypothyroidism E03.9 Paroxysmal A-fib I48.0 Hypertension I10 Anxiety F41.9
[2021-05-18] MEDS ORDERED: ACETAMINOPHEN 325 MG TAB PO PRN (04:59)
[2021-05-18] MEDS ORDERED: ONDANSETRON INJ 2 MG/ML 2 ML VIAL IV PRN (04:59)
[2021-05-18] MEDS ORDERED: POLYETHYLENE (MIRALAX) 17 GM PACK PO PRN (04:59)
[2021-05-18] MEDS ORDERED: DOCUSATE SODIUM 100 MG CAP PO PRN (04:59)
[2021-05-18 07:11] LABS: Hematocrit (blood only) 18.8 % (42-52); Hemoglobin 6.4 g/dL (14.0-18.0); Mean Corpuscular Hemoglobin 31.7 pg (25-34); Mean Corpuscular Volume 93.1 fL (80-100); Mean Platelet Volume 9.7 fL (7.4-10.4); Platelet Count 153 K/uL (130-400); RDW Coefficient of Variation 16.9 % (11.5-14.5); RDW Standard Deviation 56.3 fL (36.4-46.3); Red Blood Count 2.02 M/uL (4.7-6.1); White Blood Count 8.73 K/uL (4.8-10.8)
[2021-05-18 07:21] LABS: Thyroid Stimulating Hormone 4.68 uIu/ml (0.300-4.500)
[2021-05-18 07:25] LABS: Basophils # (auto) 0.02 K/uL (0-0.2); Basophils % (auto) 0.2 %; Eosinophils # (auto) 0.05 K/uL (0-0.5); Eosinophils % (auto) 0.6 %; Immature Granulocytes # (auto) 0.05 K/uL (0.00-0.02); Immature Granulocytes % (auto) 0.6 %; Lymphocytes # (auto) 0.65 K/uL (1.2-3.4); Lymphocytes % (auto) 7.4 %; Monocytes # (auto) 1.02 K/uL (0.11-0.59); Monocytes % (auto) 11.7 %; Neutrophils # (auto) 6.94 K/uL (1.4-6.5); Neutrophils % (auto) 79.5 %; RBC Morphology Unremarkable
[2021-05-18 07:54] LABS: T4 Free Thyroxine 0.67 ng/dl (0.61-1.60)
--- NOTE | 2021-05-18 07:59 | XRay Report ---
XR chest 1V portable HISTORY: Shortness of breath. Atypical Chest Pain COMPARISON: Chest 09/17/2020. FINDINGS: No pneumothorax. Trace left pleural effusion persist. The heart remains mildly enlarged. A few left basilar linear densities consistent with subsegmental atelectasis. No new focal lung consoli dations to suggest pneumonia. No evidence for pulmonary edema. Mild emphysema. IMPRESSION: No change in the trace left pleural effusion and left basilar subsegmental atelectasis. ACT 112: Negative or not required by law. Electronically signed by: Giacomo Coles M.D. 05/18/2021 7:57 AM
--- NOTE | 2021-05-18 08:22 | Hospitalist Progress Note ---
Date of Service May 18, 2021 Assessment & Plan (1) Symptomatic anemia: Plan: 85yo male presenting with symptomatic anemia. Normochromic/normocytic anemia with Hgb=6.9, Hct=19.9 (last values 12.3 and 35.9, respectively on 05/03/21). Normal INR and platelets. No laboratory evidence of hepatic disease. Elevated BUN of 76. Patient denies melena/hematochezia/hematemesis/hematuria. No prior transfusions. Ddx to include UGIB given elevated BUN, LGIB -- admitted to taking aleve 3x/daily Hold ASA -- states he hadn't been taking this UA ordered to check for hematuria --not yet obtained Fecal occult ordered but not obtained --> RN did report LARGE darkened BM later this morning Hgb 6.4 am labs, 2u PRBC ordered and transfusing (transfused ca if needed) Trend h/h, transfuse as needed GI on consult NPO --> down to EGD this afternoon Change to protonix gtt from IV BID (acute drop, normal labs ~2wks ago) Iron studies obtained --iron 163, TIBC 328, trans % sat 50, ferritin 20 Repeat CXR for complaints of SOB obtained --> atelectasis but also with some patchiness and order IS Supplemental O2 as needed to maintain sats --100% on 2L Troponin negative x 2, no chest pain reported EKG without evidence of ischemia, repeat if reports of CP TSH elevated but FT4 wnl and rec repeat outpt re-testing Hemodynamically stable at this time but if were to become unstable would move to monitored bed Continue to monitor Of note, also check ECHO,?hemolysis. Also ordered Venous Doppler given LE edema and reported pain to L leg >R -- if were to be positive would need to consider IVF filter given acute bleeding as above (2) Hypertension: Plan: BP currently 125/48 Hold losartan/HCTZ, hydralazine for now, amlodipine given this morning Continue to hold metoprolol Monitor (3) Hypothyroidism: Plan: Chronic. Elevated TSH on last check at 6.02 (05/03/21), again elevated but 4.68, suspect reactive. Ft4 wnl Repeat outpatient with PCP (4) Paroxysmal A-fib: Plan: Presently in NSR. Not anticoagulation Per Dr Robbins note, hx falls, no AC rec'd at that time Still in NSR --> holding BB in setting of bleed Monitor for now, EKG for symptoms -- denied palpations or chest pain (5) Anxiety: Plan: Chronic Continue Ativan PRN Zyrtec for allergy symptoms (6) History of CVA (cerebrovascular accident): Plan: noted back on MRI 2019, poss old L parietal lobe infarct Had rec'd he be on asa at d/c from that admission, but patient reports he stopped that couple months ago, has been taking aleve as noted would not give in setting of GIB but could have been contributing factor to above with ASA/NSAID use cautious use in restarting pending endoscopic eval above Plan: PPx-- SCDs, chemical contraindicated in setting of suspected GIB Admission and Anticipated Discharge Date Admission Date: May 18, 2021 Supervising Physician Co-Signing Physician Notes MIKO Supervision Note: I did not personally see or examine the patient today, but I verified all calderón points of MIKO Knowles's assessment and plan with the following exceptions/additions: None Subjective eval this morning -- ADMITTED AFTER MIDNIGHT, BRIDGE NOTE, NO BILL CONTINUES to endorse shortness of breath, fatigue, low energy also reports nasal congestion -- discussed Flonase/can use oxymask as needed given nasal bogginess/congestion currently 1u prbc transfusing, 2 units ordered he states has had couple weeks of progressive weakness, weakness, fatigue, generalized pains. had been taking daily aspirin as instructed at d/c last admission but stopped taking couple months ago has been taking Aleve gel caps up to three times daily at home no fevers, chills. denies chest pain per say but does have gas pain passing gas states not blood visible but upon further questioning he states bowels usually on looser side, some constipation but rarely. sometimes stools can be black/darker but maybe not black necessarily but he states he believes this is from roast beef that he's had. Discussed possible imaging. Was about to order CT however GI may just plan to scope today. Awaiting response. Continued monitoring of blood counts/transfuse as needed. Will also repeat cxr given reported difficults taking deep breath. Of note, he does have some RLE edema worse than left. States this is pretty chronic but does have some calf tenderness on the right which is not present on the left. Not erythematous. Does endorse difficulty ambulating. Physical Exam Physical Exam: General: fatigued appearing but no acute distress, on 2L NC with SpO2 100%, +general pallor HEENT: mm dry, oral mucosa slight pallor, +nasal bogginess trachea midline without deviation Resp: able to talk in complete sentences, no accessory muscle use, on 2L, diminished in the bases with associated crackles, no wheezing appreciated CV: regular rate/rhythm, +murmur, edema RLE>LLE, NVI and pulses palpable GI: +BS, soft, non-tender Ext: warm, 2+ pulses in UE/LE bilaterally, no clubbing/cyanosis, edema of bilateral LE R > L (reported some tenderness to palpation R calf), poorly kept toenails with onychomycosis Neuro: nonfocal, patient AA&O x 4, speech intact, no facial droop, moving all extremities on command with equal strength 5/5 Results & Data Results & Data ([facility]) Vital Signs (Past 12 Hours) Vital Signs Temp Pulse Pulse Resp BP BP Pulse Ox 05/18/21 07:42 36.8 C 64 16 134/67 100 05/18/21 07:25 36.8 C 64 16 134/67 100 05/18/21 06:55 36.8 C 64 16 113/66 100 05/18/21 06:40 36.7 C 58 L 18 100/60 100 05/18/21 06:22 36.7 C 65 18 130/70 100 05/18/21 05:24 36.6 C 73 18 142/57 H 100 05/18/21 04:30 67 22 132/49 L 99 05/18/21 04:00 67 16 122/51 L 100 05/18/21 03:12 72 17 142/58 H 100 05/18/21 02:45 68 19 131/76 100 05/18/21 01:30 96 05/18/21 01:15 24 137/60 97 05/18/21 01:12 37.2 C 69 24 136/107 H 97 Laboratory Results 05/18/21 05/18/21 05/18/21 Range/Units 05:38 05:38 03:44 WBC 8.73 (4.8-10.8) K/uL RBC 2.02 L (4.7-6.1) M/uL Hgb 6.4 L* (14.0-18.0) g/dL Hct 18.8 L* (42-52) % MCV 93.1 (80-100) fL MCH 31.7 (25-34) pg MCHC 34.0 (32-36) g/dL RDW Std Deviation 56.3 H (36.4-46.3) fL RDW Coeff of Randall 16.9 H (11.5-14.5) % Plt Count 153 (130-400) K/uL MPV 9.7 (7.4-10.4) fL Immature Gran % (Auto) 0.6 % Neut % (Auto) 79.5 % Lymph % (Auto) 7.4 % [place] % (Auto) 11.7 % Eos % (Auto) 0.6 % Baso % (Auto) 0.2 % Neut # (Auto) 6.94 H (1.4-6.5) K/uL Lymph # (Auto) 0.65 L (1.2-3.4) K/uL [place] # (Auto) 1.02 H (0.11-0.59) K/uL Eos # (Auto) 0.05 (0-0.5) K/uL Baso # (Auto) 0.02 (0-0.2) K/uL Immature Gran # (Auto) 0.05 H (0.00-0.02) K/uL RBC Morphology Unremarkable PT (9.0-12.0) Seconds INR (0.9-1.1) APTT (21.0-31.0) Seconds PTT Ratio Sodium (136-145) mmol/L Potassium (3.5-5.1) mmol/L Chloride (98-107) mmol/L Carbon Dioxide (21-32) mmol/L Anion Gap (3-11) BUN (6-23) mg/dl Creatinine (0.6-1.4) mg/dl Est Cr Clr Drug Dosing ml/min Est GFR ( Amer) ml/min Est GFR (Non-Af Amer) ml/min BUN/Creatinine Ratio (10-20) Glucose (70-99(Fasting)) mg/dl Calcium (8.5-10.1) mg/dl Total Bilirubin (0.2-1.0) mg/dl AST (13-39) U/L ALT (7-52) U/L Alkaline Phosphatase (34-104) U/L Troponin I (0-0.04) ng/ml B-Natriuretic Peptide (0-100) pg/ml Total Protein (6.0-8.3) gm/dl Albumin (3.4-5.0) gm/dl Globulin (2.5-4.0) gm/dl Albumin/Globulin Ratio (0.9-2) Lipase (11-82) U/L TSH 4.680 H (0.300-4.500) uIu/ml Free T4 0.67 (0.61-1.60) ng/dl SARS-CoV-2, RNA, NAAT (NEGATIVE) Blood Type Blood Type Recheck O Positive Antibody Screen Crossmatch 05/18/21 05/18/21 05/18/21 Range/Units 03:02 03:02 02:42 WBC (4.8-10.8) K/uL RBC (4.7-6.1) M/uL Hgb (14.0-18.0) g/dL Hct (42-52) % MCV (80-100) fL MCH (25-34) pg MCHC (32-36) g/dL RDW Std Deviation (36.4-46.3) fL RDW Coeff of Randall (11.5-14.5) % Plt Count (130-400) K/uL MPV (7.4-10.4) fL Immature Gran % (Auto) % Neut % (Auto) % Lymph % (Auto) % [place] % (Auto) % Eos % (Auto) % Baso % (Auto) % Neut # (Auto) (1.4-6.5) K/uL Lymph # (Auto) (1.2-3.4) K/uL [place] # (Auto) (0.11-0.59) K/uL Eos # (Auto) (0-0.5) K/uL Baso # (Auto) (0-0.2) K/uL Immature Gran # (Auto) (0.00-0.02) K/uL RBC Morphology PT (9.0-12.0) Seconds INR (0.9-1.1) APTT (21.0-31.0) Seconds PTT Ratio Sodium (136-145) mmol/L Potassium (3.5-5.1) mmol/L Chloride (98-107) mmol/L Carbon Dioxide (21-32) mmol/L Anion Gap (3-11) BUN (6-23) mg/dl Creatinine (0.6-1.4) mg/dl Est Cr Clr Drug Dosing ml/min Est GFR ( Amer) ml/min Est GFR (Non-Af Amer) ml/min BUN/Creatinine Ratio (10-20) Glucose (70-99(Fasting)) mg/dl Calcium (8.5-10.1) mg/dl Total Bilirubin (0.2-1.0) mg/dl AST (13-39) U/L ALT (7-52) U/L Alkaline Phosphatase (34-104) U/L Troponin I (0-0.04) ng/ml B-Natriuretic Peptide 39 (0-100) pg/ml Total Protein (6.0-8.3) gm/dl Albumin (3.4-5.0) gm/dl Globulin (2.5-4.0) gm/dl Albumin/Globulin Ratio (0.9-2) Lipase (11-82) U/L TSH (0.300-4.500) uIu/ml Free T4 (0.61-1.60) ng/dl SARS-CoV-2, RNA, NAAT NEGATIVE (NEGATIVE) Blood Type O Positive Blood Type Recheck Antibody Screen NEGATIVE Crossmatch See Detail 05/18/21 05/18/21 05/18/21 Range/Units 01:46 01:46 01:46 WBC 9.11 (4.8-10.8) K/uL RBC 2.16 L (4.7-6.1) M/uL Hgb 6.9 L* (14.0-18.0) g/dL Hct 19.9 L* (42-52) % MCV 92.1 (80-100) fL MCH 31.9 (25-34) pg MCHC 34.7 (32-36) g/dL RDW Std Deviation 56.1 H (36.4-46.3) fL RDW Coeff of Randall 17.0 H (11.5-14.5) % Plt Count 156 (130-400) K/uL MPV 9.1 (7.4-10.4) fL Immature Gran % (Auto) 0.3 % Neut % (Auto) 79.6 % Lymph % (Auto) 12.2 % [place] % (Auto) 6.9 % Eos % (Auto) 0.8 % Baso % (Auto) 0.2 % Neut # (Auto) 7.25 H (1.4-6.5) K/uL Lymph # (Auto) 1.11 L (1.2-3.4) K/uL [place] # (Auto) 0.63 H (0.11-0.59) K/uL Eos # (Auto) 0.07 (0-0.5) K/uL Baso # (Auto) 0.02 (0-0.2) K/uL Immature Gran # (Auto) 0.03 H (0.00-0.02) K/uL RBC Morphology Unremarkable PT 11.9 (9.0-12.0) Seconds INR 1.1 (0.9-1.1) APTT 24.1 (21.0-31.0) Seconds PTT Ratio 0.9 Sodium 132 L (136-145) mmol/L Potassium 3.8 (3.5-5.1) mmol/L Chloride 99 (98-107) mmol/L Carbon Dioxide 23 (21-32) mmol/L Anion Gap 10 (3-11) BUN 76 H (6-23) mg/dl Creatinine 1.19 (0.6-1.4) mg/dl Est Cr Clr Drug Dosing 46.9 ml/min Est GFR ( Amer) 64.2 ml/min Est GFR (Non-Af Amer) 55.4 ml/min BUN/Creatinine Ratio 63.9 H (10-20) Glucose 129 H (70-99(Fasting)) mg/dl Calcium 8.5 (8.5-10.1) mg/dl Total Bilirubin 0.6 (0.2-1.0) mg/dl AST 13 (13-39) U/L ALT 11 (7-52) U/L Alkaline Phosphatase 53 (34-104) U/L Troponin I < 0.03 (0-0.04) ng/ml B-Natriuretic Peptide (0-100) pg/ml Total Protein 5.8 L (6.0-8.3) gm/dl Albumin 3.7 (3.4-5.0) gm/dl Globulin 2.1 L (2.5-4.0) gm/dl Albumin/Globulin Ratio 1.8 (0.9-2) Lipase 37 (11-82) U/L TSH (0.300-4.500) uIu/ml Free T4 (0.61-1.60) ng/dl SARS-CoV-2, RNA, NAAT (NEGATIVE) Blood Type Blood Type Recheck Antibody Screen Crossmatch Diagnostic Findings Chest X-Ray 05/18/21 01:30 XR chest 1V portable HISTORY: Shortness of breath. Atypical Chest Pain COMPARISON: Chest 09/17/2020. FINDINGS: No pneumothorax. Trace left pleural effusion persist. The heart remains mildly enlarged. A few left basilar linear densities consistent with subsegmental atelectasis. No new focal lung consolidations to suggest pneumonia. No evidence for pulmonary edema. Mild emphysema. IMPRESSION: No change in the trace left pleural effusion and left basilar subsegmental atelectasis. ACT 112: Negative or not required by law. Electronically signed by: Giacomo Coles M.D. 05/18/2021 7:57 AM Chest X-Ray 05/18/21 08:50 XR chest 1V portable CLINICAL HISTORY: shortness of breath COMPARISON STUDY: Chest radiograph May 18, 2021 at 1:20 AM. FINDINGS: No pneumothorax is present. Blunting of the left costophrenic angle is similar to chest radiograph of September 12, 2020. This is probably chronic. No pneumothorax is present. Cardiomediastinal silhouette is stable. There is no evidence for pulmonary edema. IMPRESSION: 1. No acute cardiopulmonary findings. 2. Hazy left basilar opacity and blunting of left costophrenic angle which is likely chronic. This may be due to epicardial fat pad. ACT 112: Negative or not required by law. Electronically signed by: Jeremiah Villaseñor M.D. 05/18/2021 9:31 AM PG Care Time/CCT Total # of Minutes Spent Total Time Spent with Patient: Total time spent is greater than 50% in coordination of care (as documented) at patient's floor/unit and/or counseling patient: Coding Level of Care Code None Diagnoses Symptomatic anemia D64.9 Hypertension I10 Hypothyroidism E03.9 Paroxysmal A-fib I48.0 Anxiety F41.9 History of CVA (cerebrovascular accident) Z86.73
[2021-05-18] MEDS ORDERED: ALBUTEROL 0.083% NEBU SOLN 3 ML VIAL NEB STA (08:52)
[2021-05-18] MEDS ORDERED: LOSARTAN/HCTZ 50/12.5MG TAB PO SCH (09:00)
[2021-05-18] MEDS ORDERED: LORazepam 0.5 MG TAB PO SCH (09:00)
[2021-05-18] MEDS ORDERED: PANTOprazole 40 MG in SYRINGE 0 ML IV SCH (09:00)
[2021-05-18 09:01] LABS: Magnesium 2.2 mg/dl (1.7-2.4)
[2021-05-18 09:21] LABS: Folate (Folic Acid) > 22.30 ng/ml (>5.38)
[2021-05-18 09:22] LABS: Vitamin B12 231 pg/ml (180-914)
[2021-05-18] MEDS: CETIRIZINE HCL 10 MG TABLET PO SCH (09:22)
--- NOTE | 2021-05-18 09:31 | Gastrointestinal Consultation ---
Date of Consultation May 18, 2021 Assessment & Plan (1) Symptomatic anemia: Symptomatic anemia: The patient is a pleasant 85-year-old male who presented with progressive shortness of breath, fatigue, weakness, dizziness, presyncope and was found to have anemia with hemoglobin of 6.9 and hematocrit of 19.9. He is status post transfusion of 1 unit packed red blood cells. Per nursing report he had black stool this morning. He does use Aleve due to leg pain 3 times daily. He is also on a baby aspirin. These medications are held at present time. Maintain NPO. Continue PPI IV BID. Plan for today is to obtain EGD for further evaluation. Patient also has a past medical history sig nificant for longtime alcohol abuse. Please refer to supervising physician addendum for further recommendations. I have spent 45 minutes of discrete time performing the activities of this visit which include but are not limited to review of the medical record, obtaining a history, physical exam, and entering information in the electronic record. Supervising Physician Co-Signing Physician Notes I have seen and examined the patient. I agree with note above by RINKU Mancia except as noted below. HPI Pt with black stools, elevated BUN and use of NSAIDS presents with drop in Hgb to 6. No abd pain. PE Abdomen pos bs, soft, no guarding nor rebound. A/P Melena acute blood loss anemia Favor UGI bleed as etiology. Discussed with patient and plan EGD today. Procedure and risks explained to patient which include but not limited to medication reaction, bleeding, perforation, aspiration, and missed lesions. As the supervising physician, I , Conor Wallace MD have spent 21 minutes of discrete time performing the activities of this visit which include but not limited to review of the medical records, obtaining a history, physical exam and entering information in the electronic record. RINKU Mancia has reported spending 45 minutes of discrete time with the activities of this visit. History of Present Illness Reason for Consultation: possible UGI bleed Attending Physician: Char Gutierrez MD History of Present Illness The patient is a pleasant 85-year-old male with a past medical history to include alcohol abuse, hepatic steatosis, hyperglycemia, hypertension, hypertensive urgency, hypothyroidism, insomnia, PAF not on anticoagulation who presented to the emergency department with symptomatic anemia. Presented to the emergency department with complaints of progressive shortness of breath, dyspnea on exertion, fatigue, weakness, dizziness and presyncope. The GI service was consulted to the anemia. On exam/interview today, the patient reports that he has had shortness of breath, weakness, dizziness, chest discomfort that has been progressively worsening over the last several weeks. Reports that he had blood testing by his PCP just a few weeks ago and was told that his labs overall look good his thyroid test would need to be discussed. This is confirmed with review of record on 05/03/2021 hemoglobin 12.3 and hematocrit 35.9. He denies any fever, chills, night sweats. He reports some lower abdominal discomfort at times with increased gas and flatulence. He reports that he has as many as 1-4 bowel movements a day. He reports his stools have been dark but not specifically black in color. He denies noting any bright red or dark red blood in his stools. Last bowel movement this morning. Stool mixed with urine but nursing reports that stool was black. He states his eating habits have fluctuated but he still has a good appetite. Denies any specific nausea or vomiting. He is unsure if he has had any unintentional weight loss. Reports that he has been using Aleve 3 times daily for many years. Most recently using Aleve due to lower leg pain. Also on 81mg aspirin daily. No noted PPI use. No prior EGD that he can recall. Last colonoscopy that he recalls was in [address] Pedersen. 04/2016: Patient was evaluated by [facility] during admission with complaints of diarrhea and abnormal liver test. Elevated LFTs at time of admission thought related to alcohol use. Fatty liver likely from alcohol. Offered colonoscopy but declined per note. And is a former smoker. He reports he quit smoking years ago. He does have a history of heavy alcohol intake. He states he drank everything from scotch to beer to wine. He would have a "a few glasses a day". He did quit drinking alcohol about 3 years ago. Denies any recreational drug use. 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 He is and lives with his in their own home. His is wheelchair-bound. They do not have any caregivers or help in the home. Allergies Allergy/AdvReac Type Severity Reaction Status Date / Time No Known Drug Allergies Allergy Unknown Verified 05/18/21 01:32 Home Medications Medication Instructions Recorded Confirmed Type aspirin 81 mg tablet,delayed 81 mg PO QAM #30 tab 05/03/18 05/18/21 Rx release (Ecotrin Low Strength) vitamins A,C,W-ndcv-ajfjie 14,320 1 cap PO BID #60 cap 08/05/18 05/18/21 Rx unit-226 mg-200 unit capsule (PreserVision AREDS) coenzyme Q10 100 mg capsule 100 mg PO DAILY 12/14/18 05/18/21 History magnesium oxide 400 mg (241.3 mg 400 mg PO QAM #30 tab 09/19/20 05/18/21 Rx magnesium) tablet rosuvastatin 5 mg tablet (Crestor) 5 mg PO DAILY #90 tab 09/26/20 05/18/21 Rx amlodipine 10 mg tablet 10 mg PO DAILY #90 tab 10/02/20 05/18/21 Rx metoprolol tartrate 25 mg tablet 12.5 mg PO BID #90 tab 10/02/20 05/18/21 Rx potassium chloride 40 mEq/15 mL 20 meq PO BID #1350 ml 04/10/21 05/18/21 Rx oral liquid lorazepam 1 mg tablet (Ativan) 0.5 mg PO BID #30 tab 04/23/21 05/18/21 Rx hydralazine 50 mg tablet 50 mg PO TID #270 tab 04/30/21 05/18/21 Rx losartan 50 mg-hydrochlorothiazide 1 tab PO BID #90 tab 04/30/21 05/18/21 Rx 12.5 mg tablet (Hyzaar) Patient History Medical History (Updated 05/18/21 @ 12:33 by RINKU Sexton) Alcohol abuse Hepatic steatosis Hyperglycemia Hypertension Hypertensive urgency Hypothyroidism Insomnia Paroxysmal A-fib Symptomatic anemia Surgical History History of cataract surgery History of colonoscopy History of tonsillectomy Family History Mother , age 90 of uncertain causes. Anxiety Father , age 55 of pulmonary disease and alcoholism Lung disease Sister Kidney stone Denies family history of Ovarian cancer Prostate cancer Myocardial infarction Breast cancer Colorectal cancer Social History (Reviewed 05/18/21 @ 04:23 by BRUNA Zimmer Smoking Status: Never smoker Tobacco Type: Cigarettes Age Started Using Tobacco: 20; Age Quit Using Tobacco: 60; Cigarettes Per Day: social smoker, off and on; Second Hand Exposure: No; Hx Alcohol Use: No Hx Substance Use: No Preferred Language: Azeri Communication Ability: Impaired Visual Impairment: No Limitations Hearing Ability: Normal 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 Feels Safe at Home: Yes Childhood Exposure to Second-Hand Smoke: Yes Dental Care, Regularly: No Physical Activity Frequency: Does not Exercise Seatbelt Use: always Sunscreen Use: No Assistive Devices: Glasses Review of Systems Review of Systems: All systems reviewed & are unremarkable except as noted in Subjective Physical Exam Constitutional: + ill appearing Respiratory: normal respiratory effort; no respiratory distress and no labored breathing Cardiovascular: RRR, no murmur, no edema Gastrointestinal (Abdomen): normal bowel sounds, soft, nontender, no hepatosplenomegaly Psychiatric: A+Ox3, euthymic affect Results & Data ([facility]) Vital Signs (Past 12 Hours) Vital Signs Temp Pulse Pulse Resp BP BP Pulse Ox 05/18/21 08:25 36.4 C L 87 16 147/66 H 100 05/18/21 07:42 36.8 C 64 16 134/67 100 05/18/21 07:25 36.8 C 64 16 134/67 100 05/18/21 06:55 36.8 C 64 16 113/66 100 05/18/21 06:40 36.7 C 58 L 18 100/60 100 05/18/21 06:22 36.7 C 65 18 130/70 100 05/18/21 05:24 36.6 C 73 18 142/57 H 100 05/18/21 04:30 67 22 132/49 L 99 05/18/21 04:00 67 16 122/51 L 100 05/18/21 03:12 72 17 142/58 H 100 05/18/21 02:45 68 19 131/76 100 05/18/21 01:30 96 05/18/21 01:15 24 137/60 97 05/18/21 01:12 37.2 C 69 24 136/107 H 97 Laboratory Results Laboratory Results - last 24 hr 05/18/21 05/18/21 05/18/21 01:46 01:46 01:46 WBC 9.11 RBC 2.16 L Hgb 6.9 L* Hct 19.9 L* MCV 92.1 MCH 31.9 MCHC 34.7 RDW Std Deviation 56.1 H RDW Coeff of Randall 17.0 H Plt Count 156 MPV 9.1 Immature Gran % (Auto) 0.3 Neut % (Auto) 79.6 Lymph % (Auto) 12.2 [place] % (Auto) 6.9 Eos % (Auto) 0.8 Baso % (Auto) 0.2 Neut # (Auto) 7.25 H Lymph # (Auto) 1.11 L [place] # (Auto) 0.63 H Eos # (Auto) 0.07 Baso # (Auto) 0.02 Immature Gran # (Auto) 0.03 H RBC Morphology Unremarkable PT 11.9 INR 1.1 APTT 24.1 PTT Ratio 0.9 Sodium 132 L Potassium 3.8 Chloride 99 Carbon Dioxide 23 Anion Gap 10 BUN 76 H Creatinine 1.19 Est Cr Clr Drug Dosing 46.9 Est GFR ( Amer) 64.2 Est GFR (Non-Af Amer) 55.4 BUN/Creatinine Ratio 63.9 H Glucose 129 H Calcium 8.5 Magnesium Iron TIBC Unsaturated IBC Transferrin % Sat Ferritin Total Bilirubin 0.6 AST 13 ALT 11 Alkaline Phosphatase 53 Troponin I < 0.03 B-Natriuretic Peptide Total Protein 5.8 L Albumin 3.7 Globulin 2.1 L Albumin/Globulin Ratio 1.8 Lipase 37 Vitamin B12 Folate TSH Free T4 SARS-CoV-2, RNA, NAAT Blood Type Blood Type Recheck Antibody Screen Crossmatch 05/18/21 05/18/21 05/18/21 02:42 03:02 03:02 WBC RBC Hgb Hct MCV MCH MCHC RDW Std Deviation RDW Coeff of Randall Plt Count MPV Immature Gran % (Auto) Neut % (Auto) Lymph % (Auto) [place] % (Auto) Eos % (Auto) Baso % (Auto) Neut # (Auto) Lymph # (Auto) [place] # (Auto) Eos # (Auto) Baso # (Auto) Immature Gran # (Auto) RBC Morphology PT INR APTT PTT Ratio Sodium Potassium Chloride Carbon Dioxide Anion Gap BUN Creatinine Est Cr Clr Drug Dosing Est GFR ( Amer) Est GFR (Non-Af Amer) BUN/Creatinine Ratio Glucose Calcium Magnesium Iron TIBC Unsaturated IBC Transferrin % Sat Ferritin Total Bilirubin AST ALT Alkaline Phosphatase Troponin I B-Natriuretic Peptide 39 Total Protein Albumin Globulin Albumin/Globulin Ratio Lipase Vitamin B12 Folate TSH Free T4 SARS-CoV-2, RNA, NAAT NEGATIVE Blood Type O Positive Blood Type Recheck Antibody Screen NEGATIVE Crossmatch See Detail 05/18/21 05/18/21 05/18/21 03:44 05:38 05:38 WBC 8.73 RBC 2.02 L Hgb 6.4 L* Hct 18.8 L* MCV 93.1 MCH 31.7 MCHC 34.0 RDW Std Deviation 56.3 H RDW Coeff of Randall 16.9 H Plt Count 153 MPV 9.7 Immature Gran % (Auto) 0.6 Neut % (Auto) 79.5 Lymph % (Auto) 7.4 [place] % (Auto) 11.7 Eos % (Auto) 0.6 Baso % (Auto) 0.2 Neut # (Auto) 6.94 H Lymph # (Auto) 0.65 L [place] # (Auto) 1.02 H Eos # (Auto) 0.05 Baso # (Auto) 0.02 Immature Gran # (Auto) 0.05 H RBC Morphology Unremarkable PT INR APTT PTT Ratio Sodium Potassium Chloride Carbon Dioxide Anion Gap BUN Creatinine Est Cr Clr Drug Dosing Est GFR ( Amer) Est GFR (Non-Af Amer) BUN/Creatinine Ratio Glucose Calcium Magnesium Iron TIBC Unsaturated IBC Transferrin % Sat Ferritin Total Bilirubin AST ALT Alkaline Phosphatase Troponin I B-Natriuretic Peptide Total Protein Albumin Globulin Albumin/Globulin Ratio Lipase Vitamin B12 Folate TSH 4.680 H Free T4 0.67 SARS-CoV-2, RNA, NAAT Blood Type Blood Type Recheck O Positive Antibody Screen Crossmatch 05/18/21 05/18/21 05:38 05:38 WBC RBC Hgb Hct MCV MCH MCHC RDW Std Deviation RDW Coeff of Randall Plt Count MPV Immature Gran % (Auto) Neut % (Auto) Lymph % (Auto) [place] % (Auto) Eos % (Auto) Baso % (Auto) Neut # (Auto) Lymph # (Auto) [place] # (Auto) Eos # (Auto) Baso # (Auto) Immature Gran # (Auto) RBC Morphology PT INR APTT PTT Ratio Sodium Potassium Chloride Carbon Dioxide Anion Gap BUN Creatinine Est Cr Clr Drug Dosing Est GFR ( Amer) Est GFR (Non-Af Amer) BUN/Creatinine Ratio Glucose Calcium Magnesium 2.2 Iron 163 TIBC 328 Unsaturated IBC 165 Transferrin % Sat 50 Ferritin 20.0 Total Bilirubin AST ALT Alkaline Phosphatase Troponin I B-Natriuretic Peptide Total Protein Albumin Globulin Albumin/Globulin Ratio Lipase Vitamin B12 231 Folate > 22.30 TSH Free T4 SARS-CoV-2, RNA, NAAT Blood Type Blood Type Recheck Antibody Screen Crossmatch Diagnostic Findings Chest X-Ray 05/18/21 01:30 XR chest 1V portable HISTORY: Shortness of breath. Atypical Chest Pain COMPARISON: Chest 09/17/2020. FINDINGS: No pneumothorax. Trace left pleural effusion persist. The heart remains mildly enlarged. A few left basilar linear densities consistent with subsegmental atelectasis. No new focal lung consolidations to suggest pneumonia. No evidence for pulmonary edema. Mild emphysema. IMPRESSION: No change in the trace left pleural effusion and left basilar subsegmental atelectasis. ACT 112: Negative or not required by law. Electronically signed by: Giacomo Coles M.D. 05/18/2021 7:57 AM
--- NOTE | 2021-05-18 09:33 | XRay Report ---
XR chest 1V portable CLINICAL HISTORY: shortness of breath COMPARISON STUDY: Chest radiograph May 18, 2021 at 1:20 AM. FINDINGS: No pneumothorax is present. Blunting of the left costophrenic angle is similar to chest rad iograph of September 12, 2020. This is probably chronic. No pneumothorax is present. Cardiomediastinal shannon houette is stable. There is no evidence for pulmonary edema. IMPRESSION: 1. No acute cardiopulmonary findings. 2. Hazy left basilar opacity and blunting of left costophrenic angle which is likely chronic. This ma y be due to epicardial fat pad. ACT 112: Negative or not required by law. Electronically signed by: Jeremiah Villaseñor M.D. 05/18/2021 9:31 AM
[2021-05-18 10:07] LABS: Anion Gap 9 (3-11); BUN Creatinine Ratio 68.7 (10-20); Blood Urea Nitrogen 79 mg/dl (6-23); Calcium 8.2 mg/dl (8.5-10.1); Carbon Dioxide 24 mmol/L (21-32); Chloride 101 mmol/L (98-107); Creatinine Clr Calc Pharmacy 48.5 ml/min; Est GFR (African American) 66.9 ml/min; Est GFR (Non-African American) 57.7 ml/min; Glucose 124 mg/dl (70-99(Fasting)); Potassium 3.5 mmol/L (3.5-5.1); Sodium 134 mmol/L (136-145)
[2021-05-18 10:09] LABS: Troponin I < 0.03 ng/ml (0-0.04)
--- NOTE | 2021-05-18 10:52 | Anesthesiology Consultation ---
Date of Service May 18, 2021 Assessment & Plan (1) Encounter for pre-operative examination: Chart Review Chart Review: Acceptable Risk for Surgery and Patient NOT seen in Pre Admission Testing Patient has received 1 unit pRBC overnight. Will inquire about starting the second unit prior to undergoing ECG. Consults Requested none History Surgery Operation Date: 05/18/21 15:45 Proposed Procedures p Esophagogastroduodenoscopy Dr Wallace - Conor Wallace Height/Weight Height: 5 ft 10 in Weight: 81.3 kg Allergies Allergy/AdvReac Type Severity Reaction Status Date / Time No Known Drug Allergies Allergy Unknown Verified 05/18/21 01:32 Medications Home Medications Medication Instructions Recorded Confirmed Last Taken aspirin 81 mg tablet,delayed 81 mg PO QAM #30 tab 05/03/18 05/18/21 Unknown release (Ecotrin Low Strength) vitamins A,C,Q-ptyh-nasjlb 14,320 1 cap PO BID #60 cap 08/05/18 05/18/21 Unknow n unit-226 mg-200 unit capsule (PreserVision AREDS) coenzyme Q10 100 mg capsule 100 mg PO DAILY 12/14/18 05/18/21 Unknown magnesium oxide 400 mg (241.3 mg 400 mg PO QAM #30 tab 09/19/20 05/18/21 Unknown magnesium) tablet rosuvastatin 5 mg tablet (Crestor) 5 mg PO DAILY #90 tab 09/26/20 05/18/21 Unknown amlodipine 10 mg tablet 10 mg PO DAILY #90 tab 10/02/20 05/18/21 Unknown metoprolol tartrate 25 mg tablet 12.5 mg PO BID #90 tab 10/02/20 05/18/21 Unknown potassium chloride 40 mEq/15 mL 20 meq PO BID #1350 ml 04/10/21 05/18/21 Unknown oral liquid lorazepam 1 mg tablet (Ativan) 0.5 mg PO BID #30 tab 04/23/21 05/18/21 Unknown hydralazine 50 mg tablet 50 mg PO TID #270 tab 04/30/21 05/18/21 Unknown losartan 50 mg-hydrochlorothiazide 1 tab PO BID #90 tab 04/30/21 05/18/21 Unknown 12.5 mg tablet (Hyzaar) Active Medications Generic Name Dose Route Start Last Admin Trade Name Freq PRN Reason Stop Dose Admin Cetirizine HCl 10 mg 05/18/21 09:00 05/18/21 09:22 Cetirizine Hcl 10 Mg Tablet PO 06/17/21 08:59 10 mg QAM LEONIDES Administration Lorazepam 0.5 mg 05/18/21 09:00 05/18/21 09:23 Lorazepam 0.5 Mg Tab PO 06/17/21 08:59 0.5 mg BID LEONIDES Administration Past Medical History Medical History (Updated 05/18/21 @ 10:54 by Gokul Hernandes MD) Alcohol abuse Hepatic steatosis Hyperglycemia Hypertension Hypertensive urgency Hypothyroidism Insomnia Paroxysmal A-fib Symptomatic anemia Past Family History Family History Mother , age 90 of uncertain causes. Anxiety Father , age 55 of pulmonary disease and alcoholism Lung disease Sister Kidney stone Denies family history of Ovarian cancer Prostate cancer Myocardial infarction Breast cancer Colorectal cancer Past Surgical History Surgical History History of cataract surgery History of colonoscopy History of tonsillectomy Social History Smoking Status: Never smoker Smoking cigarettes per day: social smoker, off and on Do You Dip or Chew Tobacco: No Hx Alcohol Use: No Alcohol type: beer alcohol intake frequency: other Hx Substance Use: No substance use type: does not use Physical Exam Vital Signs Last Vital Signs Temp 36.8 C 05/18/21 10:36 Pulse 70 05/18/21 10:36 Resp 18 05/18/21 10:36 BP 108/61 05/18/21 10:36 Pulse Ox 100 05/18/21 10:36 Testing Laboratory Results 05/18/21 05:38 05/18/21 09:29 PT 11.9 Seconds (9.0-12.0) 05/18/21 01:46 INR 1.1 (0.9-1.1) 05/18/21 01:46 APTT 24.1 Seconds (21.0-31.0) 05/18/21 01:46 Blood Type O Positive 05/18/21 03:02 Antibody Screen NEGATIVE 05/18/21 03:02 Electrocardiogram Date: 05/18/21 Findings: + NSR @ (69) Sinus rhythm with 1st degree A-V block with Premature atrial complexes Nonspecific T wave abnormality Prolonged QT Abnormal ECG When compared with ECG of 18-MAY-2021 01:22, (unconfirmed) Premature atrial complexes are now Present Chest X-Ray Date: 05/18/21 XR chest 1V portable CLINICAL HISTORY: shortness of breath COMPARISON STUDY: Chest radiograph May 18, 2021 at 1:20 AM. FINDINGS: No pneumothorax is present. Blunting of the left costophrenic angle is similar to chest radiograph of September 12, 2020. This is probably chronic. No p neumothorax is present. Cardiomediastinal silhouette is stable. There is no evidence for pulmonary edema. IMPRESSION: 1. No acute cardiopulmonary findings. 2. Hazy left basilar opacity and blunting of left costophrenic angle which is likely chronic. This may be due to epicardial fat pad.
[2021-05-18] MEDS: hydrALAZINE TAB 50 MG TAB PO SCH ×3 (10:58→21:25)
[2021-05-18] MEDS: amLODIPine BESYLATE 5 MG TAB PO SCH (10:58)
[2021-05-18] MEDS: FLUTICASONE PROPIONATE NA SPR 16 GM BTL SCH ×2 (11:14→16:44)
[2021-05-18] MEDS: PANTOprazole 40 MG in DEXTROSE 5% 100 ML IV SCH ×2 (11:14→17:54)
--- NOTE | 2021-05-18 13:01 | XCELERA ---
[id number]
--- NOTE | 2021-05-18 13:34 | Electrocardiogram Report ---
Test Reason : Blood Pressure : / mmHG Vent. Rate : 069 BPM Atrial Rate : 069 BPM P-R Int : 274 ms QRS Dur : 094 ms QT Int : 430 ms P-R-T Axes : 096 023 081 degrees QTc Int : 460 ms Sinus rhythm with 1st degree A-V block Otherwise normal ECG When compared with ECG of 18-SEP-2020 11:27, Sinus rhythm has replaced Atrial fibrillation QT has shortened Confirmed by Tim Hooks ([id number]) on 05/18/2021 1:34:25 PM Referred By: REFERRED SELF Confirmed By:Sudhir Hooks
--- NOTE | 2021-05-18 13:37 | Electrocardiogram Report ---
Test Reason : Blood Pressure : / mmHG Vent. Rate : 069 BPM Atrial Rate : 069 BPM P-R Int : 256 ms QRS Dur : 096 ms QT Int : 436 ms P-R-T Axes : 091 025 090 degrees QTc Int : 467 ms Sinus rhythm with 1st degree A-V block with Premature atrial complexes Nonspecific T wave abnormality Abnormal ECG When compared with ECG of 18-MAY-2021 01:22, (unconfirmed) Premature atrial complexes are now Present Confirmed by Tim Hooks ([id number]) on 05/18/2021 1:36:59 PM Referred By: REFERRED SELF Confirmed By:Sudhir Hooks
[2021-05-18] MEDS ORDERED: PROPOFOL IV EMULSION 10 MG/ML 20 ML VIAL IV ONE ×2 (14:14→14:44)
[2021-05-18] MEDS ORDERED: LIDOCAINE 2% 2 ML VIAL/AMP(20MG/ML) INFIL ONE (14:14)
[2021-05-18] MEDS ORDERED: ONDANSETRON INJ 2 MG/ML 2 ML VIAL ONE ×2 (14:14→14:15)
[2021-05-18] MEDS ORDERED: ePHEDrine sulfate 50 MG/ML SYR ONE (14:44)
--- NOTE | 2021-05-18 14:56 | GI REPORT ---
Patient Name: Joshua Arriaga Procedure Date: 05/18/2021 2:12 PM Date of : 1935 Admit Type: Inpatient Age: 85 Gender: Male Attending MD: Conor Wallace MD Procedure: Upper GI endoscopy Providers: Conor Wallace MD Referring MD: Char Gutierrez Md Indications: Acute post hemorrhagic anemia, Melena Medicines: Monitored Anesthesia Care Complications: No immediate complications. Estimated blood loss: Minimal. Estimated Blood Loss: Estimated blood loss was minimal. Procedure: Pre-Anesthesia Assessment: - The risks and benefits of the procedure and the sedation options and risks were discussed with the patient. All questions were answered and informed consent was obtained. After obtaining informed consent, the endoscope was passed under direct vision. Throughout the procedure, the patient's blood pressure, pulse, and oxygen saturations were monitored continuously. The Scope was introduced through the mouth, and advanced to the second part of duodenum. The upper GI endoscopy was accomplished without difficulty. The patient tolerated the procedure well. Procedure and risks explained to patient which include but not limited to medication reaction, bleeding, perforation, aspiration , and missed lesions. Judicious gas insufflation was used and gas removal done on the way out. The lumen was always visualized when advancing the scope. Prep was good. Washes and suctioning used as needed to get good visualization of the mucosa. Retroflexion to look at the fundus and cardia of the stomach and GE junction was done. Findings: The Z-line was irregular and was found 36 cm from the incisors. A moderate Schatzki ring was found at the gastroesophageal junction. A 3 cm hiatal hernia was present. Red blood was found in the entire examined stomach. One oozing cratered gastric ulcer with a visible vessel was found in the gastric antrum. The lesion was 8 mm in largest dimension. Area was successfully injected with 1.5 ml of a 1:10,000 solution of epinephrine for hemostasis. Coagulation for hemostasis using argon plasma at 1 liter/minute and 30 cr was successful. To prevent bleeding post-intervention, one hemostatic clip was successfully placed. There was no bleeding at the end of the procedure. Red blood was found in the first portion of the duodenum and in the second portion of the duodenum. The exam was otherwise without abnormality. Impression: - Z-line irregular, 36 cm from the incisors. - Moderate Schatzki ring. - 3 cm hiatal hernia. - Red blood in the entire stomach. - Oozing gastric ulcer with a visible vessel. NSAID induced etiology. Injected. Treated with argon plasma coagulation (APC). Clip was placed. - Blood in the second portion of the duodenum. - The examination was otherwise normal. - No specimens collected. Recommendation: - Return patient to [facility] care. - NPO for now. Continue PPI. Conor Wallace M.D. Conor Wallace MD 05/18/2021 2:55:50 PM This report has been signed electronically. Note Initiated On: 05/18/2021 2:12 PM Number of Addenda: 0 I attest to the content of the Intraoperative Record and orders documented therein, exceptions below {[id number]}
--- NOTE | 2021-05-18 14:58 | Post Operative Brief Note ---
Immediate Post Op Note v1 Date of Surgery May 18, 2021 Pre & Post Diagnosis Operation Date: 05/18/21 15:45 Pre-Op Diagnosis: SYMPTOMATIC ANEMIA Post-Op Diagnosis: Hiatal Hernia, Schatzki Ring, Hemostasis of Vessel I identified the patient and participated in the time-out.: Yes Procedure Operation Date: 05/18/21 15:45 Actual Procedures p EGD Hemostasis - Conor Wallace Surgeon Conor Wallace Acute Dialysis Nurse see report Estimated Blood Loss 10 Findings Consistent with Post-Op Diagnosis Antral ulcer with visible vessel with spontaneous oozing. Epinephrine injected, cauterized with APC and clipped. Continue PPI, NPO for now. High risk for rebleeding. I am going off service today at [address] Nieto is on schedule to be assuming GI care.
--- NOTE | 2021-05-18 15:01 | Anesthesiology Progress Note ---
Date of Service May 18, 2021 Anesthesia Post Procedure Vital Signs Vital Signs: Temp Pulse Pulse Resp BP BP BP 05/18/21 14:52 36.7 C 80 20 130/49 L 05/18/21 13:45 36.9 C 74 20 125/48 L 05/18/21 13:15 36.5 C 65 16 115/68 05/18/21 12:15 36.6 C 65 18 100/59 L 05/18/21 11:45 36.7 C 68 18 102/57 L 05/18/21 11:30 36.6 C 68 16 122/62 05/18/21 11:29 36.7 C 67 18 102/57 L 05/18/21 11:17 36.5 C 67 18 129/57 L 05/18/21 10:36 36.8 C 70 18 108/61 05/18/21 10:25 36.7 C 70 18 116/64 05/18/21 10:13 68 24 05/18/21 09:25 36.7 C 76 16 118/62 05/18/21 08:25 36.4 C L 87 16 147/66 H 05/18/21 07:42 36.8 C 64 16 134/67 05/18/21 07:25 36.8 C 64 16 134/67 05/18/21 06:55 36.8 C 64 16 113/66 05/18/21 06:40 36.7 C 58 L 18 100/60 05/18/21 06:22 36.7 C 65 18 130/70 05/18/21 05:24 36.6 C 73 18 142/57 H 05/18/21 04:30 67 22 132/49 L 05/18/21 04:00 67 16 122/51 L 05/18/21 03:12 72 17 142/58 H 05/18/21 02:45 68 19 131/76 05/18/21 01:30 05/18/21 01:15 24 137/60 05/18/21 01:12 37.2 C 69 24 136/107 H Pulse Ox 05/18/21 14:52 100 05/18/21 13:45 97 05/18/21 13:15 100 05/18/21 12:15 100 05/18/21 11:45 100 05/18/21 11:30 100 05/18/21 11:29 100 05/18/21 11:17 100 05/18/21 10:36 100 05/18/21 10:25 100 05/18/21 10:13 99 05/18/21 09:25 100 05/18/21 08:25 100 05/18/21 07:42 100 05/18/21 07:25 100 05/18/21 06:55 100 05/18/21 06:40 100 05/18/21 06:22 100 05/18/21 05:24 100 05/18/21 04:30 99 05/18/21 04:00 100 05/18/21 03:12 100 05/18/21 02:45 100 05/18/21 01:30 96 05/18/21 01:15 97 05/18/21 01:12 97 Transfer of Care Handoff Completed per policy Notes Mental Status: alert / awake / arousable and participated in evaluation Patient Amnestic to Procedure: Yes Nausea / Vomiting: adequately controlled Pain: adequately controlled Airway Patency, RR, SpO2: stable & adequate BP & HR: stable & adequate Hydration State: stable & adequate Anesthetic Complications: no major complications apparent and Pt Satisfied with anesthetic care
[2021-05-18] MEDS ORDERED: SODIUM CHLORIDE 0.9% 1000ML 1,000 ML IV SCH (16:00)
[2021-05-18 16:11] LABS: Basophils # (auto) 0.02 K/uL (0-0.2); Basophils % (auto) 0.2 %; Eosinophils # (auto) 0.04 K/uL (0-0.5); Eosinophils % (auto) 0.4 %; Hematocrit (blood only) 24.1 % (42-52); Hemoglobin 8.5 g/dL (14.0-18.0); Immature Granulocytes # (auto) 0.05 K/uL (0.00-0.02); Immature Granulocytes % (auto) 0.5 %; Lymphocytes # (auto) 0.99 K/uL (1.2-3.4); Lymphocytes % (auto) 10.3 %; Mean Corpuscular Hemoglobin 31.8 pg (25-34); Mean Corpuscular Hgb Conc 35.3 g/dL (32-36); Mean Corpuscular Volume 90.3 fL (80-100); Mean Platelet Volume 9.1 fL (7.4-10.4); Monocytes % (auto) 13.5 %; Neutrophils % (auto) 75.1 %; Nucleated RBC # (auto) 0.02 K/uL (0-0); Nucleated RBC % (auto) 0.2 %; Platelet Count 129 K/uL (130-400); RDW Coefficient of Variation 15.8 % (11.5-14.5); RDW Standard Deviation 50.3 fL (36.4-46.3); Red Blood Count 2.67 M/uL (4.7-6.1)
[2021-05-18 16:47] LABS: BUN Creatinine Ratio 71.3 (10-20); Creatinine Clr Calc Pharmacy 48.5 ml/min; Est GFR (African American) 66.9 ml/min; Est GFR (Non-African American) 57.7 ml/min; Potassium 3.2 mmol/L (3.5-5.1)
[2021-05-18] MEDS ORDERED: LORazepam 2 MG/1 ML VIAL IV STA ×2 (17:01)
[2021-05-18] MEDS ORDERED: OXYMETAZOLINE 0.05% 30 ML BTL NAE ONE (17:05)
[2021-05-18] MEDS ORDERED: STAT IV STA (17:56)
[2021-05-18] MEDS ORDERED: CALCIUM GLUCONATE 10% 1,000 MG in DEXTROSE 5% 50 ML IV ONE (18:15)
[2021-05-18] MEDS: NSS + 20MEQ KCL 20 MEQ/1,000 ML BAG IV SCH (18:24)
[2021-05-18] MEDS: CYANOCOBALAMIN 1000 MCG/ML VIAL IM SCH (18:46)
--- NOTE | 2021-05-18 21:09 | Ultrasound Report ---
US venous doppler LE BI CLINICAL HISTORY: r/o DVT TECHNIQUE: Bilateral lower extremity real-time compression venous ultrasound with Color Doppler imagi ng. Utilizing real-time ultrasonic imaging multiple real time high-resolution ultrasonic images with compression and noncompression maneuvers of the deep venous system in addition to color doppler imagi ng were performed from the common femoral vein through the proximal calf veins. COMPARISON: None available at the time of this dictation. FINDINGS: Currently there is normal compressibility of the deep venous system from the common femoral vein thro ugh the proximal calf veins. No current evidence of acute thrombosis is identified. Evaluation of the calf veins was slightly limited due to edema. Impression: No evidence of deep venous thrombus. ACT 112: Negative or not required by law. Electronically signed by: Candelario Dean M.D. 05/18/2021 9:07 PM
[2021-05-18 21:22] LABS: Basophils # (auto) 0.03 K/uL (0-0.2); Basophils % (auto) 0.4 %; Eosinophils # (auto) 0.05 K/uL (0-0.5); Eosinophils % (auto) 0.6 %; Hemoglobin 8.3 g/dL (14.0-18.0); Immature Granulocytes # (auto) 0.03 K/uL (0.00-0.02); Immature Granulocytes % (auto) 0.4 %; Lymphocytes # (auto) 0.72 K/uL (1.2-3.4); Lymphocytes % (auto) 9.2 %; Mean Corpuscular Hemoglobin 31.2 pg (25-34); Mean Corpuscular Hgb Conc 34.6 g/dL (32-36); Mean Corpuscular Volume 90.2 fL (80-100); Mean Platelet Volume 9.1 fL (7.4-10.4); Monocytes % (auto) 12.8 %; Neutrophils # (auto) 5.99 K/uL (1.4-6.5); Neutrophils % (auto) 76.6 %; Platelet Count 124 K/uL (130-400); RDW Coefficient of Variation 16.2 % (11.5-14.5); RDW Standard Deviation 52.1 fL (36.4-46.3); Red Blood Count 2.66 M/uL (4.7-6.1); White Blood Count 7.82 K/uL (4.8-10.8)
[2021-05-18 21:49] LABS: Appearance Urine Clear (Clear); Bilirubin Urine Negative (Negative); Blood Urine Negative (Negative); Color Urine Yellow; Glucose Urine UA Negative (Negative); Ketones Urine Negative (Negative); Leukocyte Esterase Urine Negative (Negative); Nitrite Urine Negative (Negative); Protein Urine Negative (Negative); Specific Gravity Urine 1.015 (1.000-1.030); Urobilinogen Urine Negative (Negative)
[2021-05-19] MEDS: PANTOprazole 40 MG in DEXTROSE 5% 100 ML IV SCH ×6 (00:06→23:27)
[2021-05-19] MEDS ORDERED: LORazepam 2 MG/1 ML VIAL IV STA (01:51)
[2021-05-19 07:22] LABS: Basophils # (auto) 0.04 K/uL (0-0.2); Basophils % (auto) 0.6 %; Eosinophils # (auto) 0.08 K/uL (0-0.5); Eosinophils % (auto) 1.2 %; Hematocrit (blood only) 21.6 % (42-52); Hemoglobin 7.5 g/dL (14.0-18.0); Immature Granulocytes # (auto) 0.02 K/uL (0.00-0.02); Immature Granulocytes % (auto) 0.3 %; Lymphocytes # (auto) 0.58 K/uL (1.2-3.4); Lymphocytes % (auto) 8.9 %; Mean Corpuscular Hemoglobin 31.9 pg (25-34); Mean Corpuscular Hgb Conc 34.7 g/dL (32-36); Mean Corpuscular Volume 91.9 fL (80-100); Mean Platelet Volume 9.4 fL (7.4-10.4); Monocytes # (auto) 1.08 K/uL (0.11-0.59); Monocytes % (auto) 16.5 %; Neutrophils # (auto) 4.74 K/uL (1.4-6.5); Neutrophils % (auto) 72.5 %; Platelet Count 128 K/uL (130-400); RDW Coefficient of Variation 16.8 % (11.5-14.5); RDW Standard Deviation 54.5 fL (36.4-46.3); Red Blood Count 2.35 M/uL (4.7-6.1); White Blood Count 6.54 K/uL (4.8-10.8)
[2021-05-19 07:47] LABS: BUN Creatinine Ratio 50.5 (10-20); Calcium 7.9 mg/dl (8.5-10.1); Creatinine Clr Calc Pharmacy 51.2 ml/min; Est GFR (African American) 71.4 ml/min; Est GFR (Non-African American) 61.6 ml/min; Magnesium 1.9 mg/dl (1.7-2.4); Potassium 3.5 mmol/L (3.5-5.1)
[2021-05-19 07:50] LABS: Polychromasia 1+
[2021-05-19] MEDS: NSS + 20MEQ KCL 20 MEQ/1,000 ML BAG IV SCH (07:56)
[2021-05-19] MEDS: CYANOCOBALAMIN 1000 MCG/ML VIAL IM SCH (07:59)
[2021-05-19] MEDS: CETIRIZINE HCL 10 MG TABLET PO SCH (08:00)
[2021-05-19] MEDS: amLODIPine BESYLATE 5 MG TAB PO SCH (08:00)
[2021-05-19] MEDS: FLUTICASONE PROPIONATE NA SPR 16 GM BTL SCH ×2 (08:00→20:37)
[2021-05-19] MEDS: LORazepam 0.5 MG TAB SL SCH ×2 (08:04→20:37)
[2021-05-19] MEDS ORDERED: SODIUM CHLORIDE 0.9% 250 ML IV PRN (08:19)
--- NOTE | 2021-05-19 08:28 | Hospitalist Progress Note ---
Date of Service May 19, 2021 Assessment & Plan (1) GI bleed: Plan: 85yo male presenting with symptomatic anemia. Normochromic/normocytic anemia with acute drop in Hgb=6.9, Hct=19.9 (last values 12.3 and 35.9, respectively on 05/03/21). Normal INR and platelets. No laboratory evidence of hepatic disease. Elevated BUN of 76. Patient initially denied melena/hematochezia/hematemesis/hematuria on admission--> Upon further questioning had darkened stools but thought related to what he was eating. No hx prior transfusion Large dark BM AM 05/18 -- admitted to taking aleve 3x/daily Switched from IV BID protonix to gtt, will continue GI consulted s/p EGD 05/[address] Wallace: * with irregular z-line, moderate schatzki ring at GEJ * 3cm hiatal hernia * RED BLOOD FOUND WITHIN ENTIRE STOMACH * One oozing cratered gastric ulcer with visible vessel found in gastric antrum. lesion 8mm in largest dimension. Area injected with epi, coag for hemostasis with argon successful. One hemostatic clip placed to prevent re-bleeding. Red blood found in first portion of duodenum and in second portion of duodenum.exam otherwise without abn 2u PRBC on 05/18 for hgb 6.4 --> improved to 8.5 * Iron studies obtained --iron 163, TIBC 328, trans % sat 50, ferritin 20 * Hgb again low at 7.5 this morning, but suspect some dilutional from IVF however given SOB ordered 1 additional unit with 20mg IV lasix. Also given 1gm IV calcium 05/18 w/ blood (will check albumin, give additional if needed) Kept NPO overnight for high risk of rebleeding, will now decrease IVF/discontinue as trying clear liquids Continue holding ASA (stated he hadn't been taking this, confirmed with that he should have been on this) Monitor BM/O2, if evidence for further bleeding will need repeat EGD. Dr Goldberg covering this weekend Repeat labs this afternoon, electrolyte replacement as needed Hemodynamically stable at this time but if were to become unstable would move to monitored bed Continue to monitor (2) Symptomatic anemia: Plan: trop negative x2 UA without RBC. TSH elevated but FT4 wnl and rec repeat outpt re-testing ECHO -- LV systolic function normal. Mild LVH. RV mildly dilated. Aortic valve sclerosis moderate without significant aortic valvular stenosis. RVSP normal Venous Doppler negative for DVT 2nd to GIB, treatment/transfuse as outlined Of note, did also check B12/folate as well as iron studies outlined above --> B12 low normal 231 and give IM replacement while inpatient and continue PO at discharge (3) Gastric ulcer: Plan: s/p egd (4) Hypertension: Plan: BP currently 129/65 Resumed metoprolol 12.5mg BID given afib (fast rates when held before), hydralazine Continue amlodipine Lasix given with blood, will hold resuming losartan/HCTZ for today but if Cr remains stable in AM/BP not hypotensive and tolerating PO diet, will resume Continue to monitor (5) Hypothyroidism: Plan: Chronic. Elevated TSH on last check at 6.02 (05/03/21), again elevated but 4.68, suspect reactive. Ft4 wnl Repeat outpatient with PCP (6) Paroxysmal A-fib: Plan: Presently in NSR. Not anticoagulation Per Dr Robbins note, hx falls, no AC rec'd at that time Still in NSR --> holding BB in setting of bleed, resumed AM 05/19 Keep magnesium>2.0--> give 1 gram IV today Keep K+ > 4.0--> give KCl 40 meq po x 1 EKG w/ CP (7) Anxiety: Plan: Chronic Continue Ativan PRN Zyrtec for allergy symptoms, flonase for nasal congestion Afrin x 1 last evening provided, can give additional if needed (8) History of CVA (cerebrovascular accident): Plan: noted back on MRI 2018, poss old L parietal lobe infarct Had rec'd he be on asa at d/c from that admission, but patient reports he stopped that couple months ago, has been taking aleve as noted would not give in setting of GIB but could have been contributing factor to above with ASA/NSAID use cautious use in restarting at least in short term given EGD findings above -would give Plavix instead along with PPI when ok with GI Plan: PPx-- SCDs, chemical contraindicated in setting of suspected GIB clear liquid diet today, advance slowly/monitoring for any re-bleeding Admission and Anticipated Discharge Date Admission Date: May 18, 2021 Supervising Physician Co-Signing Physician Notes PA Supervision Note: I did not personally see or examine the patient today, but I verified all calderón points of MIKO Knowles's assessment and plan with the following exceptions/additions: changes made to A/P as above Subjective Patient evaluated this morning Breathing improved. Oxymask for comfort but sats 100% off currently while in the room with patient. Seen by Dr Trujillo this morning. No fever/chills. Did have twinge of chest discomfort this morning when getting the blood and lasix at the same time but this has resolved. No further bowel movements at this time. Discussed trying to give some clear liquids and monitor but if any evidence for rebleeding will need to repeat EGD. Questions/concerns addressed at this time. Review of Systems Review of Systems: All systems reviewed & are unremarkable except as noted in HPI & below Physical Exam Physical Exam: General: WD/WN, chronically ill appearing, improved energy, less anxious, general pallor although slightly improved ENT: mmm, trachea midline, no deviation, nasal bogginess/congestion noted Resp: CTAB, diminished in bases, , oxymask on bed but pulse ox on finger with SpO2 99%, no wheezes/rales, bibasilar crackles, able to talk in complete sentences, not tachypneic CV: RRR, +murmur, RLE>LLE edema (less), NVI and pulses palpable, RLE less painful to palpation of calf GI: +BS, soft, non-tender Ext: warm, 2+ pulses in UE/LE bilaterally, no clubbing/cyanosis, edema of bilateral LE R > L (reported some tenderness to palpation R calf), poorly kept toenails with onychomycosis Neuro: nonfocal, patient AA&O x 4, speech intact, no facial droop, moving all extremities on command with equal strength 5/5 Results & Data Results & Data ([facility]) Vital Signs (Past 12 Hours) Vital Signs Temp Pulse Resp BP Pulse Ox 05/19/21 07:53 37.0 C 78 18 171/63 H 97 05/18/21 21:47 36.7 C 91 H 18 130/59 L 100 05/18/21 20:58 95 H 148/68 H Laboratory Results 05/19/21 05/19/21 05/18/21 Range/Units 05:46 05:46 21:40 WBC 6.54 (4.8-10.8) K/uL RBC 2.35 L (4.7-6.1) M/uL Hgb 7.5 L (14.0-18.0) g/dL Hct 21.6 L (42-52) % MCV 91.9 (80-100) fL MCH 31.9 (25-34) pg MCHC 34.7 (32-36) g/dL RDW Std Deviation 54.5 H (36.4-46.3) fL RDW Coeff of Randall 16.8 H (11.5-14.5) % Plt Count 128 L (130-400) K/uL MPV 9.4 (7.4-10.4) fL Immature Gran % (Auto) 0.3 % Neut % (Auto) 72.5 % Lymph % (Auto) 8.9 % Gregg % (Auto) 16.5 % Eos % (Auto) 1.2 % Baso % (Auto) 0.6 % Neut # (Auto) 4.74 (1.4-6.5) K/uL Lymph # (Auto) 0.58 L (1.2-3.4) K/uL Gregg # (Auto) 1.08 H (0.11-0.59) K/uL Eos # (Auto) 0.08 (0-0.5) K/uL Baso # (Auto) 0.04 (0-0.2) K/uL Immature Gran # (Auto) 0.02 (0.00-0.02) K/uL Absolute Nucleated RBC (0-0) K/uL Nucleated RBC % (auto) % Polychromasia 1+ Sodium 136 (136-145) mmol/L Potassium 3.5 (3.5-5.1) mmol/L Chloride 107 (98-107) mmol/L Carbon Dioxide 25 (21-32) mmol/L Anion Gap 4 (3-11) BUN 55 H D (6-23) mg/dl Creatinine 1.09 (0.6-1.4) mg/dl Est Cr Clr Drug Dosing 51.2 ml/min Est GFR ( Amer) 71.4 ml/min Est GFR (Non-Af Amer) 61.6 ml/min BUN/Creatinine Ratio 50.5 H (10-20) Glucose 144 H (70-99(Fasting)) mg/dl Calcium 7.9 L (8.5-10.1) mg/dl Magnesium 1.9 (1.7-2.4) mg/dl Iron (35-175) mcg/dl TIBC (250-450) mcg/dl Unsaturated IBC (155-355) mcg/dl Transferrin % Sat (20-50) % Ferritin (8-388) ng/ml Troponin I (0-0.04) ng/ml Vitamin B12 (180-914) pg/ml Folate (>5.38) ng/ml Urine Color Yellow Urine Appearance Clear (Clear) Urine pH 5.0 (4.5-7.5) Ur Specific [place] 1.015 (1.000-1.030) Urine Protein Negative (Negative) Urine Glucose (UA) Negative (Negative) Urine Ketones Negative (Negative) Urine Blood Negative (Negative) Urine Nitrite Negative (Negative) Urine Bilirubin Negative (Negative) Urine Urobilinogen Negative (Negative) Ur Leukocyte Esterase Negative (Negative) Blood Type Antibody Screen Crossmatch 05/18/21 05/18/21 05/18/21 Range/Units 21:13 15:49 15:49 WBC 7.82 9.60 (4.8-10.8) K/uL RBC 2.66 L 2.67 L (4.7-6.1) M/uL Hgb 8.3 L 8.5 L (14.0-18.0) g/dL Hct 24.0 L 24.1 L (42-52) % MCV 90.2 90.3 (80-100) fL MCH 31.2 31.8 (25-34) pg MCHC 34.6 35.3 (32-36) g/dL RDW Std Deviation 52.1 H 50.3 H (36.4-46.3) fL RDW Coeff of Randall 16.2 H 15.8 H (11.5-14.5) % Plt Count 124 L 129 L (130-400) K/uL MPV 9.1 9.1 (7.4-10.4) fL Immature Gran % (Auto) 0.4 0.5 % Neut % (Auto) 76.6 75.1 % Lymph % (Auto) 9.2 10.3 % Gregg % (Auto) 12.8 13.5 % Eos % (Auto) 0.6 0.4 % Baso % (Auto) 0.4 0.2 % Neut # (Auto) 5.99 7.20 H (1.4-6.5) K/uL Lymph # (Auto) 0.72 L 0.99 L (1.2-3.4) K/uL Gregg # (Auto) 1.00 H 1.30 H (0.11-0.59) K/uL Eos # (Auto) 0.05 0.04 (0-0.5) K/uL Baso # (Auto) 0.03 0.02 (0-0.2) K/uL Immature Gran # (Auto) 0.03 H 0.05 H (0.00-0.02) K/uL Absolute Nucleated RBC 0.02 H (0-0) K/uL Nucleated RBC % (auto) 0.2 % Polychromasia Sodium 136 (136-145) mmol/L Potassium 3.2 L (3.5-5.1) mmol/L Chloride 104 (98-107) mmol/L Carbon Dioxide 24 (21-32) mmol/L Anion Gap 8 (3-11) BUN 82 H (6-23) mg/dl Creatinine 1.15 (0.6-1.4) mg/dl Est Cr Clr Drug Dosing 48.5 ml/min Est GFR ( Amer) 66.9 ml/min Est GFR (Non-Af Amer) 57.7 ml/min BUN/Creatinine Ratio 71.3 H (10-20) Glucose 109 H (70-99(Fasting)) mg/dl Calcium 8.0 L (8.5-10.1) mg/dl Magnesium (1.7-2.4) mg/dl Iron (35-175) mcg/dl TIBC (250-450) mcg/dl Unsaturated IBC (155-355) mcg/dl Transferrin % Sat (20-50) % Ferritin (8-388) ng/ml Troponin I (0-0.04) ng/ml Vitamin B12 (180-914) pg/ml Folate (>5.38) ng/ml Urine Color Urine Appearance (Clear) Urine pH (4.5-7.5) Ur Specific [place] (1.000-1.030) Urine Protein (Negative) Urine Glucose (UA) (Negative) Urine Ketones (Negative) Urine Blood (Negative) Urine Nitrite (Negative) Urine Bilirubin (Negative) Urine Urobilinogen (Negative) Ur Leukocyte Esterase (Negative) Blood Type Antibody Screen Crossmatch 05/18/21 05/18/21 05/18/21 Range/Units 09:29 05:38 05:38 WBC (4.8-10.8) K/uL RBC (4.7-6.1) M/uL Hgb (14.0-18.0) g/dL Hct (42-52) % MCV (80-100) fL MCH (25-34) pg MCHC (32-36) g/dL RDW Std Deviation (36.4-46.3) fL RDW Coeff of Randall (11.5-14.5) % Plt Count (130-400) K/uL MPV (7.4-10.4) fL Immature Gran % (Auto) % Neut % (Auto) % Lymph % (Auto) % Gregg % (Auto) % Eos % (Auto) % Baso % (Auto) % Neut # (Auto) (1.4-6.5) K/uL Lymph # (Auto) (1.2-3.4) K/uL Gregg # (Auto) (0.11-0.59) K/uL Eos # (Auto) (0-0.5) K/uL Baso # (Auto) (0-0.2) K/uL Immature Gran # (Auto) (0.00-0.02) K/uL Absolute Nucleated RBC (0-0) K/uL Nucleated RBC % (auto) % Polychromasia Sodium 134 L (136-145) mmol/L Potassium 3.5 (3.5-5.1) mmol/L Chloride 101 (98-107) mmol/L Carbon Dioxide 24 (21-32) mmol/L Anion Gap 9 (3-11) BUN 79 H (6-23) mg/dl Creatinine 1.15 (0.6-1.4) mg/dl Est Cr Clr Drug Dosing 48.5 ml/min Est GFR ( Amer) 66.9 ml/min Est GFR (Non-Af Amer) 57.7 ml/min BUN/Creatinine Ratio 68.7 H (10-20) Glucose 124 H (70-99(Fasting)) mg/dl Calcium 8.2 L (8.5-10.1) mg/dl Magnesium 2.2 (1.7-2.4) mg/dl Iron 163 (35-175) mcg/dl TIBC 328 (250-450) mcg/dl Unsaturated IBC 165 (155-355) mcg/dl Transferrin % Sat 50 (20-50) % Ferritin 20.0 (8-388) ng/ml Troponin I < 0.03 (0-0.04) ng/ml Vitamin B12 231 (180-914) pg/ml Folate > 22.30 (>5.38) ng/ml Urine Color Urine Appearance (Clear) Urine pH (4.5-7.5) Ur Specific [place] (1.000-1.030) Urine Protein (Negative) Urine Glucose (UA) (Negative) Urine Ketones (Negative) Urine Blood (Negative) Urine Nitrite (Negative) Urine Bilirubin (Negative) Urine Urobilinogen (Negative) Ur Leukocyte Esterase (Negative) Blood Type Antibody Screen Crossmatch 05/18/21 05/18/21 Range/Units 03:03 03:02 WBC (4.8-10.8) K/uL RBC (4.7-6.1) M/uL Hgb (14.0-18.0) g/dL Hct (42-52) % MCV (80-100) fL MCH (25-34) pg MCHC (32-36) g/dL RDW Std Deviation (36.4-46.3) fL RDW Coeff of Randall (11.5-14.5) % Plt Count (130-400) K/uL MPV (7.4-10.4) fL Immature Gran % (Auto) % Neut % (Auto) % Lymph % (Auto) % Gregg % (Auto) % Eos % (Auto) % Baso % (Auto) % Neut # (Auto) (1.4-6.5) K/uL Lymph # (Auto) (1.2-3.4) K/uL Gregg # (Auto) (0.11-0.59) K/uL Eos # (Auto) (0-0.5) K/uL Baso # (Auto) (0-0.2) K/uL Immature Gran # (Auto) (0.00-0.02) K/uL Absolute Nucleated RBC (0-0) K/uL Nucleated RBC % (auto) % Polychromasia Sodium (136-145) mmol/L Potassium (3.5-5.1) mmol/L Chloride (98-107) mmol/L Carbon Dioxide (21-32) mmol/L Anion Gap (3-11) BUN (6-23) mg/dl Creatinine (0.6-1.4) mg/dl Est Cr Clr Drug Dosing ml/min Est GFR ( Amer) ml/min Est GFR (Non-Af Amer) ml/min BUN/Creatinine Ratio (10-20) Glucose (70-99(Fasting)) mg/dl Calcium (8.5-10.1) mg/dl Magnesium 2.2 (1.7-2.4) mg/dl Iron (35-175) mcg/dl TIBC (250-450) mcg/dl Unsaturated IBC (155-355) mcg/dl Transferrin % Sat (20-50) % Ferritin (8-388) ng/ml Troponin I (0-0.04) ng/ml Vitamin B12 (180-914) pg/ml Folate (>5.38) ng/ml Urine Color Urine Appearance (Clear) Urine pH (4.5-7.5) Ur Specific [place] (1.000-1.030) Urine Protein (Negative) Urine Glucose (UA) (Negative) Urine Ketones (Negative) Urine Blood (Negative) Urine Nitrite (Negative) Urine Bilirubin (Negative) Urine Urobilinogen (Negative) Ur Leukocyte Esterase (Negative) Blood Type O Positive Antibody Screen NEGATIVE Crossmatch See Detail PG Care Time/CCT Total # of Minutes Spent Total Time Spent with Patient: Total time spent is greater than 50% in coordination of care (as documented) at patient's floor/unit and/or counseling patient: Coding Level of Care Code 78430 Subseq Hosp Care Lvl 3 Diagnoses Symptomatic anemia D64.9 Hypertension I10 Hypothyroidism E03.9 Paroxysmal A-fib I48.0 Anxiety F41.9 History of CVA (cerebrovascular accident) Z86.73 GI bleed K92.2 Gastric ulcer K25.9
[2021-05-19] MEDS ORDERED: FUROSEMIDE INJ 20 MG/2 ML VIAL IV ONE (08:30)
[2021-05-19] MEDS: METOPROLOL TARTRATE 25 MG TAB PO SCH ×2 (09:47→20:37)
--- NOTE | 2021-05-19 10:10 | Gastroenterology Progress Note ---
Date of Service May 19, 2021 Assessment & Plan (1) GI bleed: Plan: Overall stable. Possibly , the low HCt is due to re adjustment of fluid. Keep on clears. Closely monitoring. If he has blood y BM or continuous drop in HCt will plan repeat EGD. Admission and Anticipated Discharge Date Admission Date: May 18, 2021 Subjective No bm today, last5 was yesterday. Receiving a transfusion, hb to 7.5. no abdominal symptoms. no pain Review of Systems Respiratory: had some chest tightness, no breathing easy Physical Exam Constitutional: WD/WN, vitals as above Gastrointestinal (Abdomen): normal bowel sounds, soft, nontender, no hepatosplenomegaly Results & Data ([facility]) Vital Signs (Past 12 Hours) Vital Signs Temp Pulse Pulse Resp BP BP Pulse Ox 05/19/21 10:00 36.4 C L 84 18 138/73 97 05/19/21 09:42 36.8 C 85 18 150/74 H 97 05/19/21 09:26 37.0 C 79 18 126/65 98 05/19/21 07:53 37.0 C 78 18 171/63 H 97 Diagnostic Findings Note egd findings, Visible vessel treated
[2021-05-19] MEDS: hydrALAZINE TAB 50 MG TAB PO SCH ×2 (13:52→20:37)
[2021-05-19 14:11] LABS: Hemoglobin 8.8 g/dL (14.0-18.0); Mean Corpuscular Hemoglobin 30.3 pg (25-34); Mean Corpuscular Hgb Conc 33.8 g/dL (32-36); Mean Corpuscular Volume 89.7 fL (80-100); Mean Platelet Volume 8.8 fL (7.4-10.4); Platelet Count 116 K/uL (130-400); RDW Coefficient of Variation 17.5 % (11.5-14.5); RDW Standard Deviation 55.8 fL (36.4-46.3); White Blood Count 7.44 K/uL (4.8-10.8)
[2021-05-19 14:42] LABS: BUN Creatinine Ratio 37.7 (10-20); Calcium 7.9 mg/dl (8.5-10.1); Creatinine Clr Calc Pharmacy 45.7 ml/min; Est GFR (African American) 62.3 ml/min; Est GFR (Non-African American) 53.7 ml/min; Magnesium 1.7 mg/dl (1.7-2.4); Potassium 3.4 mmol/L (3.5-5.1)
[2021-05-19] MEDS ORDERED: MAGNESIUM SULFATE / D5W 1 GM/100 ML BAG IV SCH (15:30)
[2021-05-19] MEDS ORDERED: POTASSIUM CHLORIDE CRTAB 20 MEQ TABCR PO STA (15:30)
[2021-05-19] MEDS: LORazepam 2 MG/1 ML VIAL IV PRN (17:47)
[2021-05-19] MEDS ORDERED: MAGNESIUM SULFATE / D5W 1 GM/100 ML BAG IV ONE (22:00)
[2021-05-20] MEDS: PANTOprazole 40 MG in DEXTROSE 5% 100 ML IV SCH ×2 (04:17→09:26)
[2021-05-20 06:34] LABS: Albumin Globulin Ratio 1.6 (0.9-2); Albumin Level 3.2 gm/dl (3.4-5.0); BUN Creatinine Ratio 29.9 (10-20); Bilirubin,Total 0.9 mg/dl (0.2-1.0); Calcium 7.9 mg/dl (8.5-10.1); Creatinine Clr Calc Pharmacy 52.1 ml/min; Magnesium 1.9 mg/dl (1.7-2.4); Potassium 3.2 mmol/L (3.5-5.1); Total Protein 5.2 gm/dl (6.0-8.3)
[2021-05-20 06:42] LABS: Basophils # (auto) 0.03 K/uL (0-0.2); Basophils % (auto) 0.5 %; Eosinophils # (auto) 0.32 K/uL (0-0.5); Hematocrit (blood only) 24.3 % (42-52); Hemoglobin 8.4 g/dL (14.0-18.0); Immature Granulocytes # (auto) 0.01 K/uL (0.00-0.02); Immature Granulocytes % (auto) 0.2 %; Lymphocytes # (auto) 0.99 K/uL (1.2-3.4); Lymphocytes % (auto) 15.3 %; Mean Corpuscular Hemoglobin 31.1 pg (25-34); Mean Corpuscular Hgb Conc 34.6 g/dL (32-36); Mean Platelet Volume 9.5 fL (7.4-10.4); Monocytes # (auto) 0.46 K/uL (0.11-0.59); Monocytes % (auto) 7.1 %; Neutrophils # (auto) 4.65 K/uL (1.4-6.5); Neutrophils % (auto) 71.9 %; Platelet Count 124 K/uL (130-400); RDW Coefficient of Variation 17.9 % (11.5-14.5); RDW Standard Deviation 57.7 fL (36.4-46.3); White Blood Count 6.46 K/uL (4.8-10.8)
[2021-05-20] MEDS: FLUTICASONE PROPIONATE NA SPR 16 GM BTL SCH ×2 (08:09→21:31)
[2021-05-20] MEDS ORDERED: POTASSIUM CHLORIDE CRTAB 20 MEQ TABCR PO STA (08:10)
[2021-05-20] MEDS: METOPROLOL TARTRATE 25 MG TAB PO SCH ×2 (08:13→21:32)
[2021-05-20] MEDS: amLODIPine BESYLATE 5 MG TAB PO SCH (08:13)
[2021-05-20] MEDS: LORazepam 0.5 MG TAB SL SCH ×2 (08:13→21:31)
[2021-05-20] MEDS: CETIRIZINE HCL 10 MG TABLET PO SCH (08:13)
[2021-05-20] MEDS: hydrALAZINE TAB 50 MG TAB PO SCH ×3 (08:13→21:31)
--- NOTE | 2021-05-20 08:15 | Hospitalist Progress Note ---
Date of Service May 20, 2021 Assessment & Plan (1) GI bleed: Plan: 85yo male presenting with symptomatic anemia. Normochromic/normocytic anemia with acute drop in Hgb=6.9, Hct=19.9 (last values 12.3 and 35.9, respectively on 05/03/21). Normal INR and platelets. No laboratory evidence of hepatic disease. Elevated BUN of 76 on admission Patient initially denied melena/hematochezia/hematemesis/hematuria on admission--> Upon further questioning had darkened stools but thought related to what he was eating. No hx prior transfusion Large dark BM AM 05/18 -- admitted to taking aleve 3x/daily Placed on protonix gtt GI consulted s/p EGD 05/[address] Wallace: * with irregular z-line, moderate schatzki ring at GEJ * 3cm hiatal hernia * RED BLOOD FOUND WITHIN ENTIRE STOMACH * One oozing cratered gastric ulcer with visible vessel found in gastric antrum. lesion 8mm in largest dimension. Area injected with epi, coag for hemostasis with argon successful. One hemostatic clip placed to prevent re-bleeding. Red blood found in first portion of duodenum and in second portion of duodenum.exam otherwise without abn Total 3u PRBC during inpatient stay. Hgb stable at 8.4, no further IVF Per GI, can advance to regular diet, soft Transitioned to protonix 40mg PO BID -- continue at discharge Mag 1.9-- 1gm IV to keep >2 w/ afib. K 3.2 and ordered 40meq PO. Advanced diet as above. Consider additional dosing tonight if not eating much. Continue holding ASA Monitor BM -- no further BM at this time. No abdominal pain and passing gas. PT/OT consulted and RN to get patient up out of bed/take for walk today On side note, suffering from rebound congestion and anxiety from such. Ordered prn ativan on top of usual available scheduled. -- had been using 5-6 nasal sprays at home and discussed rebound. Continue flonase. Ordered nasal saline. --> Demanding dose phenylephrine spray and this has been ordered x 1 and can monitor Lungs not sounding bad at all. He is demanding O2 due to not feeling like he is able to breath from the congestion and is a nose breather. Humidified the O2 and encouraged not to use unless actually required. Titrate to maintain O2 (2) Anxiety: Plan: Chronic Continue Ativan PRN, IV available as needed. ?into how much he actually utilizes at home or if worsening anxiety from rebound congestion/not feeling like he can breath through his nose Zyrtec for allergy symptoms, flonase for nasal congestion Afrin x 1 last evening provided, can give additional if needed Will try phenylephrine x 1 but discussed REBOUND CONGESTION as using 5-6 nasal sprays at home for quite some time. Could consider ENT f/u --> had been using phenylephrine 3-4 TIME DAILY (3) Symptomatic anemia: Plan: trop negative x2 UA without RBC. TSH elevated but FT4 wnl and rec repeat outpt re-testing ECHO -- LV systolic function normal. Mild LVH. RV mildly dilated. Aortic valve sclerosis moderate without significant aortic valvular stenosis. RVSP normal Venous Doppler negative for DVT 2nd to GIB, treatment/transfuse as outlined Of note, did also check B12/folate as well as iron studies outlined above --> B12 low normal 231 and give IM replacement while inpatient and continue PO at discharge (4) Gastric ulcer: Plan: s/p egd (5) Hypertension: Plan: BP currently 134/52 Resumed metoprolol 12.5mg BID given afib (fast rates when held before), hydralazine Continue amlodipine Lasix given with blood, will hold resuming losartan/HCTZ for today but if Cr remains stable in AM/BP not hypotensive and tolerating PO diet, will resume Continue to monitor (6) Hypothyroidism: Plan: Chronic. Elevated TSH on last check at 6.02 (05/03/21), again elevated but 4.68, suspect reactive. Ft4 wnl Repeat outpatient with PCP (7) Paroxysmal A-fib: Plan: Presently in NSR. Not anticoagulation Per Dr Robbins note, hx falls, no AC rec'd at that time Still in NSR --> held BB in setting of bleed/hypotension, resumed AM 05/19 Keep magnesium>2.0--> give 1 gram IV today Keep K+ > 4.0--> give KCl 40 meq po x 1 EKG w/ CP (8) History of CVA (cerebrovascular accident): Plan: noted back on MRI 2018, poss old L parietal lobe infarct Had rec'd he be on asa at d/c from that admission, but patient reports he stopped that couple months ago, has been taking aleve as noted would not give in setting of GIB but could have been contributing factor to above with ASA/NSAID use cautious use in restarting at least in short term given EGD findings above Messaged GI to see about timing of such, Dr Wallace to be back on service Friday but recommending waiting 1 week and then can start Plavix along with PPI therapy Plan: PPx-- SCDs, chemical contraindicated in setting of suspected GIB advance diet, monitor for any rebleeding and switched PPI to PO BID Per GI, if hgb stable and no further bleeding could potentially discharge tomorrow PT/OT have been consulted Admission and Anticipated Discharge Date Admission Date: May 18, 2021 Supervising Physician Co-Signing Physician Notes MIKO Supervision Note: I did not personally see or examine the patient today, but I verified all calderón points of MIKO Knowles's assessment and plan with the following exceptions/additions: None Subjective Patient evaluated later this morning. No abdominal pain but no further BM. His main concern is nasal congestion and feeling like he cannot breath. He uses a combination of 5-6 nasal sprays at home and states this is the root of his current problem. He notes someone put on humidification this morning to O2 and feels a little better. Not much of an appetite due to no smell. He states he has had this issue for years, nothing new regarding smell,and that its from his congestion. Has not yet seen GI. Continues on clear liquids for now. Inquiring about what type of Tylenol he should get and if they make those in gel caps. Updated Breezy via phone today -- she would like daily update and if AM provider would call her tomorrow. Discussed will include her phone number with instructions to call. Review of Systems Review of Systems: All systems reviewed & are unremarkable except as noted in HPI & below Physical Exam Physical Exam: General: WD/WN, chronically ill appearing, improved energy, less anxious (although reports "more ativan the better", general pallor although slightly improved ENT: mmm, trachea midline, no deviation, nasal bogginess/congestion noted Resp: CTAB, diminished in bases, , oxymask on bed but pulse ox on finger with SpO2 96%, no wheezes/rales, bibasilar crackles, able to talk in complete sent ences, not tachypneic CV: RRR, +murmur, RLE>LLE edema (less), NVI and pulses palpable, RLE less painful to palpation of calf GI: +BS, soft, non-tender Ext: warm, 2+ pulses in UE/LE bilaterally, no clubbing/cyanosis, edema of bilateral LE R > L, no longer tender, poorly kept toenails with onychomycosis Neuro: nonfocal, patient AA&O x 4, speech intact, no facial droop, moving all extremities on command with equal strength 5/5 Results & Data Results & Data ([facility]) Vital Signs (Past 12 Hours) Vital Signs Temp Pulse Resp BP Pulse Ox 05/20/21 07:48 36.4 C L 64 18 134/52 L 96 05/19/21 22:39 36.6 C 78 18 142/62 H 96 05/19/21 20:29 80 132/58 L 96 Laboratory Results 05/20/21 05/20/21 05/19/21 Range/Units 05:49 05:49 13:52 WBC 6.46 (4.8-10.8) K/uL RBC 2.70 L (4.7-6.1) M/uL Hgb 8.4 L (14.0-18.0) g/dL Hct 24.3 L (42-52) % MCV 90.0 (80-100) fL MCH 31.1 (25-34) pg MCHC 34.6 (32-36) g/dL RDW Std Deviation 57.7 H (36.4-46.3) fL RDW Coeff of Randall 17.9 H (11.5-14.5) % Plt Count 124 L (130-400) K/uL MPV 9.5 (7.4-10.4) fL Immature Gran % (Auto) 0.2 % Neut % (Auto) 71.9 % Lymph % (Auto) 15.3 % [place] % (Auto) 7.1 % Eos % (Auto) 5.0 % Baso % (Auto) 0.5 % Neut # (Auto) 4.65 (1.4-6.5) K/uL Lymph # (Auto) 0.99 L (1.2-3.4) K/uL [place] # (Auto) 0.46 (0.11-0.59) K/uL Eos # (Auto) 0.32 (0-0.5) K/uL Baso # (Auto) 0.03 (0-0.2) K/uL Immature Gran # (Auto) 0.01 (0.00-0.02) K/uL Sodium 136 138 (136-145) mmol/L Potassium 3.2 L 3.4 L (3.5-5.1) mmol/L Chloride 104 105 (98-107) mmol/L Carbon Dioxide 28 27 (21-32) mmol/L Anion Gap 4 6 (3-11) BUN 32 H 46 H (6-23) mg/dl Creatinine 1.07 1.22 (0.6-1.4) mg/dl Est Cr Clr Drug Dosing 52.1 45.7 ml/min Est GFR ( Amer) 73.0 62.3 ml/min Est GFR (Non-Af Amer) 63.0 53.7 ml/min BUN/Creatinine Ratio 29.9 H 37.7 H (10-20) Glucose 118 H 130 H (70-99(Fasting)) mg/dl Calcium 7.9 L 7.9 L (8.5-10.1) mg/dl Magnesium 1.9 1.7 Total Bilirubin 0.9 (0.2-1.0) mg/dl AST 17 (13-39) U/L ALT 13 (7-52) U/L Alkaline Phosphatase 47 (34-104) U/L Total Protein 5.2 L (6.0-8.3) gm/dl Albumin 3.2 L (3.4-5.0) gm/dl Globulin 2.0 L (2.5-4.0) gm/dl Albumin/Globulin Ratio 1.6 (0.9-2) Blood Type Antibody Screen Crossmatch 05/19/21 05/19/21 05/19/21 Range/Units 13:52 13:52 05:46 WBC 7.44 (4.8-10.8) K/uL RBC 2.90 L (4.7-6.1) M/uL Hgb 8.8 L (14.0-18.0) g/dL Hct 26.0 L (42-52) % MCV 89.7 (80-100) fL MCH 30.3 (25-34) pg MCHC 33.8 (32-36) g/dL RDW Std Deviation 55.8 H (36.4-46.3) fL RDW Coeff of Randall 17.5 H (11.5-14.5) % Plt Count 116 L (130-400) K/uL MPV 8.8 (7.4-10.4) fL Immature Gran % (Auto) % Neut % (Auto) % Lymph % (Auto) % [place] % (Auto) % Eos % (Auto) % Baso % (Auto) % Neut # (Auto) (1.4-6.5) K/uL Lymph # (Auto) (1.2-3.4) K/uL [place] # (Auto) (0.11-0.59) K/uL Eos # (Auto) (0-0.5) K/uL Baso # (Auto) (0-0.2) K/uL Immature Gran # (Auto) (0.00-0.02) K/uL Sodium (136-145) mmol/L Potassium (3.5-5.1) mmol/L Chloride (98-107) mmol/L Carbon Dioxide (21-32) mmol/L Anion Gap (3-11) BUN (6-23) mg/dl Creatinine (0.6-1.4) mg/dl Est Cr Clr Drug Dosing ml/min Est GFR ( Amer) ml/min Est GFR (Non-Af Amer) ml/min BUN/Creatinine Ratio (10-20) Glucose (70-99(Fasting)) mg/dl Calcium (8.5-10.1) mg/dl Magnesium Cancelled Total Bilirubin (0.2-1.0) mg/dl AST (13-39) U/L ALT (7-52) U/L Alkaline Phosphatase (34-104) U/L Total Protein (6.0-8.3) gm/dl Albumin 3.1 L (3.4-5.0) gm/dl Globulin (2.5-4.0) gm/dl Albumin/Globulin Ratio (0.9-2) Blood Type Antibody Screen Crossmatch 05/18/21 Range/Units 03:02 WBC (4.8-10.8) K/uL RBC (4.7-6.1) M/uL Hgb (14.0-18.0) g/dL Hct (42-52) % MCV (80-100) fL MCH (25-34) pg MCHC (32-36) g/dL RDW Std Deviation (36.4-46.3) fL RDW Coeff of Randall (11.5-14.5) % Plt Count (130-400) K/uL MPV (7.4-10.4) fL Immature Gran % (Auto) % Neut % (Auto) % Lymph % (Auto) % [place] % (Auto) % Eos % (Auto) % Baso % (Auto) % Neut # (Auto) (1.4-6.5) K/uL Lymph # (Auto) (1.2-3.4) K/uL [place] # (Auto) (0.11-0.59) K/uL Eos # (Auto) (0-0.5) K/uL Baso # (Auto) (0-0.2) K/uL Immature Gran # (Auto) (0.00-0.02) K/uL Sodium (136-145) mmol/L Potassium (3.5-5.1) mmol/L Chloride (98-107) mmol/L Carbon Dioxide (21-32) mmol/L Anion Gap (3-11) BUN (6-23) mg/dl Creatinine (0.6-1.4) mg/dl Est Cr Clr Drug Dosing ml/min Est GFR ( Amer) ml/min Est GFR (Non-Af Amer) ml/min BUN/Creatinine Ratio (10-20) Glucose (70-99(Fasting)) mg/dl Calcium (8.5-10.1) mg/dl Magnesium Total Bilirubin (0.2-1.0) mg/dl AST (13-39) U/L ALT (7-52) U/L Alkaline Phosphatase (34-104) U/L Total Protein (6.0-8.3) gm/dl Albumin (3.4-5.0) gm/dl Globulin (2.5-4.0) gm/dl Albumin/Globulin Ratio (0.9-2) Blood Type O Positive Antibody Screen NEGATIVE Crossmatch See Detail PG Care Time/CCT Total # of Minutes Spent Total Time Spent with Patient: Total time spent is greater than 50% in coordination of care (as documented) at patient's floor/unit and/or counseling patient: Coding Level of Care Code 14335 Subseq Hosp Care Lvl 3 Diagnoses GI bleed K92.2 Symptomatic anemia D64.9 Gastric ulcer K25.9 Hypertension I10 Hypothyroidism E03.9 Paroxysmal A-fib I48.0 Anxiety F41.9 History of CVA (cerebrovascular accident) Z86.73
[2021-05-20] MEDS: CYANOCOBALAMIN 1000 MCG/ML VIAL IM SCH (08:22)
[2021-05-20] MEDS ORDERED: MAGNESIUM SULFATE / D5W 1 GM/100 ML BAG IV ONE (08:45)
[2021-05-20] MEDS ORDERED: OXYMETAZOLINE 0.05% 30 ML BTL NAE ONE (11:02)
[2021-05-20] MEDS ORDERED: SODIUM CHLORIDE 0.65% NA SOLN 45 ML (OCEAN) PRN (11:02)
--- NOTE | 2021-05-20 11:15 | Gastroenterology Progress Note ---
Date of Service May 20, 2021 Assessment & Plan (1) GI bleed: Plan: Overall stable.Ok to advance diet as tolerated. Consider nasal decongestants spray ( may be having a rebound as he was usi9ng these at home) and saline nasal sprays. Admission and Anticipated Discharge Date Admission Date: May 21, 2021 Subjective Patient doing well, had had no further BM. His main concern is nasal congestion and feeling like he cannot breath, feels a little better on O2 Not much of an appetite due to no smell. Review of Systems Respiratory: Stuffy nose Physical Exam Constitutional: WD/WN, vitals as above Respiratory: normal respiratory effort, lungs clear to auscultation Gastrointestinal (Abdomen): normal bowel sounds, soft, nontender, no hepatosplenomegaly Results & Data ([facility]) Vital Signs (Past 12 Hours) Vital Signs Temp Pulse Resp BP Pulse Ox 05/20/21 07:48 36.4 C L 64 18 134/52 L 96 Laboratory Results Hb, higher today
[2021-05-20] MEDS ORDERED: PHENYLEPHRINE HCL 0.5% NA SPRAY 15 ML BTL ONE (11:45)
[2021-05-20] MEDS: PANTOprazole 40 MG TAB PO SCH ×2 (12:10→21:31)
[2021-05-21] MEDS: LORazepam 2 MG/1 ML VIAL IV PRN (00:43)
[2021-05-21 05:55] LABS: Basophils # (auto) 0.02 K/uL (0-0.2); Basophils % (auto) 0.3 %; Eosinophils # (auto) 0.38 K/uL (0-0.5); Eosinophils % (auto) 5.4 %; Hematocrit (blood only) 26.5 % (42-52); Hemoglobin 8.8 g/dL (14.0-18.0); Immature Granulocytes # (auto) 0.01 K/uL (0.00-0.02); Immature Granulocytes % (auto) 0.1 %; Lymphocytes # (auto) 0.64 K/uL (1.2-3.4); Lymphocytes % (auto) 9.1 %; Mean Corpuscular Hemoglobin 30.3 pg (25-34); Mean Corpuscular Hgb Conc 33.2 g/dL (32-36); Mean Corpuscular Volume 91.4 fL (80-100); Monocytes # (auto) 0.98 K/uL (0.11-0.59); Neutrophils # (auto) 4.97 K/uL (1.4-6.5); Neutrophils % (auto) 71.1 %; Platelet Count 140 K/uL (130-400); RDW Coefficient of Variation 17.8 % (11.5-14.5); RDW Standard Deviation 57.4 fL (36.4-46.3)
[2021-05-21 06:17] LABS: BUN Creatinine Ratio 22.2 (10-20); Calcium 8.3 mg/dl (8.5-10.1); Creatinine Clr Calc Pharmacy 56.3 ml/min; Est GFR (African American) 80.2 ml/min; Est GFR (Non-African American) 69.2 ml/min; Magnesium 1.9 mg/dl (1.7-2.4); Potassium 3.7 mmol/L (3.5-5.1)
--- NOTE | 2021-05-21 08:24 | Gastroenterology Progress Note ---
Date of Service May 21, 2021 Assessment & Plan (1) Gastric ulcer: Plan: Gastric ulcer--likely NSAID induced. Will obtain stool for H. pylori to rule out other causes. Patient has poor appetite but tolerating p.o. diet. Patient will need outpatient GI clinic evaluation at discharge to discuss follow-up EGD. Will sign off patient case and see in the clinic as an outpatient. Please reconsult if needed. Anemia--patient counts are stable this morning at hematocrit 8.8 and hematocrit 26.5. He has not had stool output per his report and nursing documentation does not note stool. Continue to monitor. Patient case reviewed with Dr. Wallace. Please refer to supervising physician addendum for further recommendations. I have spent 20 minutes of discrete time performing the activities of this visit which include but are not limited to review of the medical record, obtaining a history, physical exam, and entering information in the electronic record. (2) GI bleed: Admission and Anticipated Discharge Date Admission Date: May 18, 2021 Supervising Physician Co-Signing Physician Notes I have seen and examined the patient. I agree with note above by RINKU Mancia except as noted below. HPI Pt being readied for DC when I saw him in the room. H and H stable today. He denies abd pain. PE Abdomen pos bs, soft, no guardign nor rebound A/P Gastric ulcer---continue PPI. Recommend outpt check H.pylori Ag if not done inpt. Told patient to avoid NSAIDS except for tylenol. F/u with GI as outpt and consider repeat EGD to document healing of ulcer. Will sign off. As the supervising physician, I , Conor Wallace MD have spent 12 minutes of discrete time performing the activities of this visit which include but not limited to review of the medical records, obtaining a history, physical exam and entering information in the electronic record. RINKU Mancia has reported spending 20 minutes of discrete time with the activities of this visit. Subjective The patient is awake and alert this morning. He is sitting in bed and position of comfort. Denies any abdominal pain, nausea or vomiting. He reports decreased appetite with little p.o. intake yesterday per his report. States he just does not feel hungry. No bowel movement this morning or yesterday per his report. He is hopeful that he can go home soon. Review of Systems Review of Systems: All systems reviewed & are unremarkable except as noted in Subjective Physical Exam Constitutional: WD/WN, vitals as above Respiratory: normal respiratory effort, lungs clear to auscultation Gastrointestinal (Abdomen): normal bowel sounds, soft, nontender, no hepatosplenomegaly Results & Data ([facility]) Vital Signs (Past 12 Hours) Vital Signs Temp Pulse Pulse Resp BP BP Pulse Ox 05/21/21 07:40 36.9 C 67 14 136/53 L 93 05/20/21 21:39 36.7 C 74 18 165/63 H 98 Laboratory Results Laboratory Results - last 24 hr 05/21/21 05/21/21 05:26 05:26 WBC 7.00 RBC 2.90 L Hgb 8.8 L Hct 26.5 L MCV 91.4 MCH 30.3 MCHC 33.2 RDW Std Deviation 57.4 H RDW Coeff of Randall 17.8 H Plt Count 140 MPV 9.0 Immature Gran % (Auto) 0.1 Neut % (Auto) 71.1 Lymph % (Auto) 9.1 [place] % (Auto) 14.0 Eos % (Auto) 5.4 Baso % (Auto) 0.3 Neut # (Auto) 4.97 Lymph # (Auto) 0.64 L [place] # (Auto) 0.98 H Eos # (Auto) 0.38 Baso # (Auto) 0.02 Immature Gran # (Auto) 0.01 Sodium 136 Potassium 3.7 Chloride 104 Carbon Dioxide 26 Anion Gap 6 BUN 22 Creatinine 0.99 Est Cr Clr Drug Dosing 56.3 Est GFR ( Amer) 80.2 Est GFR (Non-Af Amer) 69.2 BUN/Creatinine Ratio 22.2 H Glucose 107 H Calcium 8.3 L Magnesium 1.9 Diagnostic Findings 05/18/2021: EGD was performed due to history of melena and acute posthemorrhagic anemia which demonstrated a irregular Z-line found 36 cm to the incisors. A moderate Schatzki's ring was found at the gastroesophageal junction. A 3 cm hiatal hernia was present. Red blood was found in the entire stomach. Oozing gastric ulcer with a visible vessel. Most likely NSAID induced etiology. This was injected and treated with APC with a clip placed. Blood in the second portion of the duodenum. The exam was otherwise normal and no specimens were collected.
[2021-05-21] MEDS: PANTOprazole 40 MG TAB PO SCH (08:34)
[2021-05-21] MEDS: hydrALAZINE TAB 50 MG TAB PO SCH ×2 (08:34→14:03)
[2021-05-21] MEDS: CETIRIZINE HCL 10 MG TABLET PO SCH (08:34)
[2021-05-21] MEDS: amLODIPine BESYLATE 5 MG TAB PO SCH (08:34)
[2021-05-21] MEDS: METOPROLOL TARTRATE 25 MG TAB PO SCH (08:34)
[2021-05-21] MEDS: FLUTICASONE PROPIONATE NA SPR 16 GM BTL SCH (08:35)
[2021-05-21] MEDS: CYANOCOBALAMIN 1000 MCG/ML VIAL IM SCH (08:35)
[2021-05-21] MEDS: LORazepam 0.5 MG TAB SL SCH (12:13)
--- NOTE | 2021-05-21 16:58 | Discharge Summary ---
Date of Service May 21, 2021 Admission HPI Per Admitting Provider Joshua Arriaga is an 85yo male with history of HTN, Hypothyroidism, PAF not on anticoagulation presenting with symptomatic anemia. Patient finds it difficult to remember when symptoms began, endorses at least several weeks of progressive SOB, PRABHAKAR with decreased exercise tolerance, fatigue, weakness, dizziness and pre-syncope. He becomes very short of breath with minimal activity. He denies chest pain, palpitations, cough, abdominal pain. Denies nausea, vomiting, hematemesis or coffee ground emesis. Reports occasional constipation and diarrhea but no blood. He endorses some nasal congestion, watery eyes and post-nasal drip. Patient has had screening colonoscopies, no prior EGD that he can recall. No history of blood transfusion. ER Course: Hgb=6.9, Hct=19.9. Transfusion ordered Principal Diagnosis Acute on chronic anemia, secondary to upper GI bleed antral ulcer Discharge Exam General: WD/WN, chronically ill appearing, improved energy, less anxious (although reports "more ativan the better", general pallor although slightly improved ENT: mmm, trachea midline, no deviation, nasal bogginess/congestion noted Resp: CTAB, diminished in bases, , oxymask on bed but pulse ox on finger with SpO2 96%, no wheezes/rales, bibasilar crackles, able to talk in complete sentences, not tachypneic CV: RRR, +murmur, RLE>LLE edema (less), NVI and pulses palpable, RLE less painful to palpation of calf GI: +BS, soft, non-tender Ext: warm, 2+ pulses in UE/LE bilaterally, no clubbing/cyanosis, edema of b ilateral LE R > L, no longer tender, poorly kept toenails with onychomycosis Neuro: nonfocal, patient AA&O x 4, speech intact, no facial droop, moving all extremities on command with equal strength 5/5 Constitutional WD/WN, vitals as above + ill appearing and + cachectic; no altered mental status ENMT Mouth: + TMJ abnormality, + dentition abnormality and + poor dentition Mallampati Class: III Neck normal visual inspection Respiratory normal respiratory effort, lungs clear to auscultation normal respiratory effort; no respiratory distress and no labored breathing Auscultation: lungs clear to auscultation bilaterally Cardiovascular RRR, no murmur, no edema Rate/Rhythm: regular rate and regular rhythm Gastrointestinal (Abdomen) normal bowel sounds, soft, nontender, no hepatosplenomegaly Musculoskeletal Spine: + limited cervical ROM; no pain with cervical ROM Neurologic moves all extremities Psychiatric A+Ox3, euthymic affect Orientation: alert and oriented x 3 Discharge Data Allergies Allergy/AdvReac Type Severity Reaction Status Date / Time No Known Drug Allergies Allergy Unknown Verified 05/18/21 13:44 Consultations 05/18/21 04:31 Consult Gastroenterology Routine Procedures Performed Operation Date: 05/18/21 15:45 Actual Procedures p EGD Hemostasis - Conor Wallace Ordered Studies 05/18/21 09:59 US venous doppler LE BI Routine Hospital Course (1) GI bleed: 85yo male presenting with symptomatic anemia. Normochromic/normocytic anemia with acute drop in Hgb=6.9, Hct=19.9 (last values 12.3 and 35.9, respectively on 05/03/21). Normal INR and platelets. No laboratory evidence of hepatic disease. Elevated BUN of 76 on admission Patient initially denied melena/hematochezia/hematemesis/hematuria on admission--> Upon further questioning had darkened stools but thought related to what he was eating. No hx prior transfusion Large dark BM AM 05/18 -- admitted to taking aleve 3x/daily Placed on protonix gtt GI consulted s/p EGD 05/[address] Wallace: * with irregular z-line, moderate schatzki ring at GEJ * 3cm hiatal hernia * RED BLOOD FOUND WITHIN ENTIRE STOMACH * One oozing cratered gastric ulcer with visible vessel found in gastric antrum. lesion 8mm in largest dimension. Area injected with epi, coag for hemostasis with argon successful. One hemostatic clip placed to prevent re-bleeding. Red blood found in first portion of duodenum and in second portion of duodenum.exam otherwise without abn Total 3u PRBC during inpatient stay. Hgb stable at 8.4, no further IVF Diet advanced patient tolerated well Patient discharged on iron pill to follow-up with GI in 2-week Patient used to take Aleve, apparently also he took aspirin which was discontinued recently, patient was advised to use only Tylenol for pain and follow-up with the consulting gender studies professor in 2 weeks to see if it is appropriate to resume aspirin given patient has a history of stroke we will substitute aspirin with Plavix Discharged on PPI twice daily (2) Anxiety: Chronic (3) Symptomatic anemia: trop negative x2 UA without RBC. TSH elevated but FT4 wnl and rec repeat outpt re-testing ECHO -- LV systolic function normal. Mild LVH. RV mildly dilated. Aortic valve sclerosis moderate without significant aortic valvular stenosis. RVSP normal Venous Doppler negative for DVT 2nd to GIB, treatment/transfuse as outlined B12 low normal 231 and give IM replacement while inpatient Needs to follow-up with PCP to recheck the B12 level again, iron panel within normal limits (4) Gastric ulcer: s/p egd (5) Hypertension: BP currently 134/52 Resumed metoprolol 12.5mg BID given afib (fast rates when held before), hydralazine Continue amlodipine (6) Hypothyroidism: Chronic. Elevated TSH on last check at 6.02 (05/03/21), again elevated but 4.68, suspect reactive. Ft4 wnl Repeat outpatient with PCP (7) Paroxysmal A-fib: Presently in NSR. Not anticoagulation Per Dr Robbins note, hx falls, no AC rec'd at that time Still in NSR --> held BB in setting of bleed/hypotension, resumed AM 05/19 Keep magnesium>2.0--> give 1 gram IV today Keep K+ > 4.0--> give KCl 40 meq po x 1 EKG w/ CP (8) History of CVA (cerebrovascular accident): noted back on MRI 2018, poss old L parietal infarct Had rec'd he be on asa at d/c from that admission, but patient reports he stopped that couple months ago, has been taking aleve as noted would not give in setting of GIB but could have been contributing factor to above with ASA/NSAID use Patient will follow up with GI in 2 weeks, patient needs to discuss with GI if it is appropriate resume aspirin, possibly aspirin should be substituted by Plavix cautious use in restarting at least in short term given EGD findings above PPx-- SCDs, chemical contraindicated in setting of suspected GIB advance diet, monitor for any rebleeding and switched PPI to PO BID Per GI, if hgb stable and no further bleeding could potentially discharge tomorrow PT/OT have been consulted Total Time Total Time Spent Total Time Spent (In Minutes): 45 Discharge Plan Discharge Items Patient Disposition: Home - Home Health Services Reason For Visit: SYMPTOMATIC ANEMIA Discharge Diagnosis: Upper GI bleed Activity: Resume your previous activity Lifting: Gradually increase as tolerated Bathing: No limitations Sexual Activity: When tolerated Driving/Machine Use: No limitations Weightbearing: Full weightbearing Non-emergency contact: Primary Care Provider and [employer] Call non-emergency contact if: you have any medication questions Follow-up/Referrals: Nicolas Foreman MD [Primary Care Provider] - 06/05/21 11:15 am (Appointment will be with Enma Lee) Conor Wallace [Physician] - 06/04/21 (Upper GI bleed, acute on chronic anemia) Diet: Low Fat Addtl Attending Provider Instructions: Please avoid any [id number] painkillers except for Tylenol, otherwise discuss it with your primary care doctor/gastroenterology You are discharged on iron pill that can give you some abdominal discomfort/stool color change/constipation/nausea, please discuss with your primary doctor if you develop any of these symptoms You are suffering from significant anemia most likely secondary to blood loss, please follow-up with your primary care doctor in 2 weeks to repeat your blood count Take aspirin or any blood thinner, or any pain clear except for acetaminophenof the unless you discuss it with your doctor Pending Studies at Discharge: Yes Studies:: CBC in 2-week Check vitamin B12 level in 1 months Stand-Alone Forms: My [employer], Smoking Cessation Medications and DC Order Prescriptions: New polyethylene glycol 3350 [Miralax] 17 gram Powder In Packet 17 g PO DAILY PRN (Reason: constipation) Qty: 30 RF: 0 pantoprazole 40 mg Tablet,Delayed Release (Dr/Ec) 40 mg PO BID Qty: 120 RF: 0 ferrous sulfate [Feosol] 325 mg (65 mg iron) tablet 325 mg PO DAILY Qty: 60 RF: 0 pantoprazole 40 mg tablet,delayed release (DR/EC) 40 mg PO Q12H 120 Days Qty: 60 RF: 0 Continued rosuvastatin [Crestor] 5 mg tablet 5 mg PO DAILY Qty: 90 RF: 3 amlodipine 10 mg tablet 10 mg PO DAILY Qty: 90 RF: 3 metoprolol tartrate 25 mg tablet 12.5 mg PO BID Qty: 90 RF: 3 potassium chloride 40 mEq/15 mL liquid 20 meq PO BID Qty: 1350 RF: 3 lorazepam [Ativan] 1 mg tablet 0.5 mg PO BID Qty: 30 RF: 0 hydralazine 50 mg tablet 50 mg PO TID Qty: 270 RF: 0 losartan-hydrochlorothiazide [Hyzaar] 50-12.5 mg tablet 1 tab PO BID Qty: 90 RF: 3 PreserVision AREDS [id number],320-226-200 [id number] capsule 1 cap PO BID Qty: 60 RF: 0 coenzyme Q10 100 mg capsule 100 mg PO DAILY RF: 0 magnesium oxide 400 mg (241.3 mg magnesium) Tablet 400 mg PO QAM Qty: 30 RF: 0 Discontinued aspirin [Ecotrin Low Strength] 81 mg Tablet,Delayed Release (Dr/Ec) 81 mg PO QAM Qty: 30 RF: 0 Discharge Orders: Discharge Order (Routine); Ordered 05/21/21 Ordered By: Major Eagle Admission Data Admit Date/Time: 05/18/21 03:56 Attending Provider: Major Eagle Admit Provider: Aminah Lee Primary Care Provider: Nicolas Foreman Other Providers: Conor Wallace Other Interventions: Discharge Summary Assessment (RN) Last Done: 05/21/21 16:13 Coding Level of Care Code D/C DAY MANAGEMENT >30 MINS Diagnoses GI bleed K92.2 Anxiety F41.9 Symptomatic anemia D64.9 Gastric ulcer K25.9 Hypertension I10 Hypothyroidism E03.9 Paroxysmal A-fib I48.0 History of CVA (cerebrovascular accident) Z86.73
== END 2021-05-21 18:30 | disposition home health service (06) | DRG 811 ==
LOC: ED 01:19 → 3N 03:56 → SUATTDRO 03:56 → 3N 04:43
DX: R09.82 Postnasal drip; I10 Essential (primary) hypertension; E03.9 Hypothyroidism, unspecified; Z91.81 History of falling; Z86.73 Personal history of transient ischemic attack (TIA), and cerebral infarction without residual deficits; Z79.899 Other long term (current) drug therapy; F17.210 Nicotine dependence, cigarettes, uncomplicated; D62 Acute posthemorrhagic anemia; F41.9 Anxiety disorder, unspecified; K25.4 Chronic or unspecified gastric ulcer with hemorrhage; K44.9 Diaphragmatic hernia without obstruction or gangrene; R09.81 Nasal congestion; Z79.82 Long term (current) use of aspirin; K22.2 Esophageal obstruction; I48.0 Paroxysmal atrial fibrillation

== ENCOUNTER 2023-04-15 21:30 | Inpatient (IN) ==
[2023-04-15 22:39] LABS: Basophils # (auto) 0.06 K/uL (0.00-0.20); Basophils % (auto) 0.7 %; Eosinophils # (auto) 0.44 K/uL (0.00-0.50); Eosinophils % (auto) 5.3 %; Hematocrit (blood only) 38.4 % (42.0-52.0); Immature Granulocytes # (auto) 0.06 K/uL (0.01-0.20); Immature Granulocytes % (auto) 0.7 %; Lymphocytes # (auto) 0.85 K/uL (1.20-3.40); Lymphocytes % (auto) 10.3 %; Mean Corpuscular Hemoglobin 31.7 pg (25.0-34.0); Mean Corpuscular Hgb Conc 33.9 g/dL (32.0-36.0); Mean Corpuscular Volume 93.7 fL (80.0-100.0); Mean Platelet Volume 9.4 fL (9.4-12.4); Monocytes # (auto) 0.92 K/uL (0.11-0.59); Monocytes % (auto) 11.1 %; Neutrophils # (auto) 5.94 K/uL (1.40-6.50); Neutrophils % (auto) 71.9 %; Platelet Count 208 K/uL (130-400); RDW Coefficient of Variation 15.8 % (11.5-14.5); RDW Standard Deviation 53.9 fL (36.4-46.3); White Blood Count 8.27 K/ul (4.8-10.8)
[2023-04-15] MEDS: LORazepam 1 MG/1 ML SYR ED Inj Use ONE (22:45)
[2023-04-15 22:53] LABS: Alanine Aminotransferase 10 U/L (7-52); Albumin Globulin Ratio 1.3 (0.9-2); Albumin Level 4.4 gm/dl (3.4-5.0); Alkaline Phosphatase 89 U/L (34-104); Anion Gap 9 (3-11); Aspartate Aminotransferase 15 U/L (13-39); BUN Creatinine Ratio 22.4 (10-20); Bilirubin,Total 0.6 mg/dl (0.2-1.0); Blood Urea Nitrogen 26 mg/dl (6-23); Calcium 9.6 mg/dl (8.6-10.3); Carbon Dioxide 27 mmol/L (21-32); Chloride 100 mmol/L (98-107); Est GFR (African American) 65.3 ml/min; Est GFR (Non-African American) 56.3 ml/min; Globulin 3.3 gm/dl (2.5-4.0); Glucose 101 mg/dl (70-99(Fasting)); Sodium 136 mmol/L (136-145); Total Protein 7.7 gm/dl (6.0-8.3)
[2023-04-15] MEDS: SODIUM CHLORIDE 0.9% 500 ML IV ONE (23:12)
[2023-04-15] MEDS: LORazepam 1 MG/1 ML SYR ED Inj Use IV STA (23:23)
[2023-04-15] MEDS: cefTRIAXone SODIUM 2,000 MG/50 ML BAG IV STA (23:30)
--- NOTE | 2023-04-16 00:22 | Emergency Department Note ---
History of Present Illness General Chief complaint: Leg Injury/Pain Stated complaint: LOWER R LEG CELLULITIS X1 MONTH Time Seen by Provider: 04/15/23 22:05 History of Present Illness Maximum Pain Intensity: 5 This 87-year-old male presents the ER complaining of right lower leg pain and infection for the past month steadily getting worse. Unfortunately at the same time when the patient was coming here his at the [facility] PD did arrive to inform the patient of this. Patient unfortunately is extremely distraught over this matter. Patient denies fevers, chest pain, dyspnea, groin pain, vomiting, diarrhea. No recent antibiotics. Home Medications Medication Instructions Recorded Confirmed Type vitamins A,C,Z-gyqs-xqfynj 4,296 1 cap PO BID #60 caps 08/05/18 04/15/23 Rx mcg-226 mg-90 mg capsule (PreserVision AREDS) coenzyme Q10 100 mg capsule 100 mg PO DAILY 12/14/18 04/15/23 History magnesium oxide 400 mg (241.3 mg 400 mg PO QAM #30 tabs 09/19/20 04/15/23 Rx magnesium) tablet ferrous sulfate 325 mg (65 mg 325 mg PO DAILY #60 tabs 05/21/21 04/15/23 Rx iron) tablet (Feosol) pantoprazole 40 mg tablet,delayed 40 mg PO BID #180 tabs 06/26/22 04/15/23 Rx release rosuvastatin 5 mg tablet (Crestor) 5 mg PO DAILY #90 tabs 08/19/22 04/15/23 Rx amlodipine 5 mg tablet (Norvasc) 10 mg (2 x 5 mg) PO QAM #60 tabs 12/11/22 04/15/23 Rx metoprolol tartrate 25 mg tablet 25 mg PO BID #60 tabs 12/11/22 04/15/23 Rx hydralazine 50 mg tablet 50 mg PO TID #270 tabs 01/22/23 04/15/23 Rx lorazepam 0.5 mg tablet 0.25 mg PO HS PRN anxiety 04/15/23 04/15/23 History potassium chloride 40 mEq/15 mL 20 meq PO DAILY 04/15/23 04/15/23 History oral liquid Allergies Allergy/AdvReac Type Severity Reaction Status Date / Time No Known Allergies Allergy Verified 04/15/23 22:44 Past Med/Surg History Medical History (Updated 04/16/23 @ 04:43 by Blade Ambrocio DO) Hypertension Gastric ulcer GI bleed History of CVA (cerebrovascular accident) Symptomatic anemia Paroxysmal A-fib Elevated CK Hyperglycemia Insomnia Hypothyroidism Hepatic steatosis Anxiety Alcohol abuse Hypertensive urgency Surgical History History of colonoscopy History of tonsillectomy History of cataract surgery Family History Mother , age 90 of uncertain causes. Anxiety Father , age 55 of pulmonary disease and alcoholism Lung disease Sister Kidney stone Denies family history of Ovarian cancer Prostate cancer Myocardial infarction Breast cancer Colorectal cancer Social History Smoking Status: Never smoker Tobacco Type: Cigarettes Age Started Using Tobacco: 20; Age Quit Using Tobacco: 60; Cigarettes Per Day: social smoker, off and on; Second Hand Exposure: No; Do You Dip or Chew Tobacco: No; Hx Alcohol Use: No Hx Substance Use: No Preferred Language: Sinhala Communication Ability: Effective Visual Impairment: No Limitations Hearing Ability: Normal Optical Element Coater Required: No Beliefs That Will Affect Care: None marital status: Current Living Situation: Alone Current Living Situation Comment: Lives alone with spouse who is WCB current occupational status: retired 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 Other Information That Helps Us Care for You: No Feels Safe at Home: Yes Safety Concerns: Feels Safe At This Time Childhood Exposure to Second-Hand Smoke: Yes Diet: regular Dental Care, Regularly: No Physical Activity Frequency: Does not Exercise Seatbelt Use: always Sunscreen Use: No Assistive Devices: Glasses Review of Systems A total of 10 systems reviewed and were otherwise negative Physical Exam Vital Signs Vital Signs - 24 hr 04/15/23 21:36 04/15/23 22:19 04/15/23 22:26 Temperature 36.6 C Temperature Source Temporal Artery Scan Pulse Rate 68 68 Pulse Rate [Apical] 75 Pulse Rate [Finger] Pulse Rhythm [Apical] Regular Respiratory Rate 18 20 Respiratory Effort / Characteristics Non-Labored Respiratory Depth Normal Respiratory Pattern Regular Blood Pressure 171/78 H Blood Pressure [Left Arm] Blood Pressure Mean 109 Blood Pressure Mean [Left Arm] Blood Pressure Position Sitting Blood Pressure Position [Left Arm] Pulse Oximetry 98 98 Oxygen Delivery Method Room Air Room Air Oxygen Flow Rate Sepsis Recent Fever Within 48 Hours No Sepsis New/Unexplained Change in Mental Status No Sepsis Action Taken by Nursing No Action Required 04/16/23 02:04 04/16/23 02:15 04/16/23 02:18 Temperature Temperature Source Pulse Rate 78 Pulse Rate [Apical] 60 68 Pulse Rate [Finger] Pulse Rhythm [Apical] Respiratory Rate 18 20 Respiratory Effort / Characteristics Non-Labored Non-Labored Respiratory Depth Normal Normal Respiratory Pattern Regular Regular Blood Pressure Blood Pressure [Left Arm] 118/67 154/79 H Blood Pressure Mean Blood Pressure Mean [Left Arm] 84 104 Blood Pressure Position Blood Pressure Position [Left Arm] Pulse Oximetry 98 92 Oxygen Delivery Method Nasal Cannula Room Air Oxygen Flow Rate 2 Sepsis Recent Fever Within 48 Hours Sepsis New/Unexplained Change in Mental Status Sepsis Action Taken by Nursing 04/16/23 04:26 04/16/23 07:04 04/16/23 10:22 Temperature Temperature Source Pulse Rate 60 Pulse Rate [Apical] 63 72 Pulse Rate [Finger] Pulse Rhythm [Apical] Respiratory Rate 20 16 Respiratory Effort / Characteristics Non-Labored Respiratory Depth Normal Respiratory Pattern Regular Blood Pressure Blood Pressure [Left Arm] 118/67 126/92 Blood Pressure Mean Blood Pressure Mean [Left Arm] 84 103 Blood Pressure Position Blood Pressure Position [Left Arm] Pulse Oximetry 98 95 Oxygen Delivery Method Nasal Cannula Room Air Oxygen Flow Rate 2 Sepsis Recent Fever Within 48 Hours Sepsis New/Unexplained Change in Mental Status Sepsis Action Taken by Nursing 04/16/23 12:16 04/16/23 12:20 Temperature 36.7 C Temperature Source Oral Pulse Rate Pulse Rate [Apical] Pulse Rate [Finger] 63 Pulse Rhythm [Apical] Respiratory Rate 18 Respiratory Effort / Characteristics Non-Labored Spontaneous Non-Labored Spontaneous Respiratory Depth Normal Normal Respiratory Pattern Regular Blood Pressure Blood Pressure [Left Arm] 161/69 H Blood Pressure Mean Blood Pressure Mean [Left Arm] 99 Blood Pressure Position Blood Pressure Position [Left Arm] Semi-fowlers Pulse Oximetry 97 Oxygen Delivery Method Room Air Room Air Oxygen Flow Rate Sepsis Recent Fever Within 48 Hours Sepsis New/Unexplained Change in Mental Status Sepsis Action Taken by Nursing VITALS: Vitals are noted on the nurse's note and reviewed by myself. Vital signs stable. GENERAL: White male, in no acute distress, nondiaphoretic, well-developed well- nourished. SKIN: Right lower leg erythema and malodorous with edema concerning for cellulitis, pedal pulses +2 equal and present bilaterally capillary reflex less than 2 seconds. HEENT: Normocephalic. PERRLA. EOMI. Nares patent. Mucous membranes moist. Neck is supple without nuchal rigidity. HEART: Regular rate and rhythm LUNGS: Clear to auscultation bilaterally without wheezes, rales or rhonchi. No retractions or accessory muscle use. ABDOMEN: Positive bowel sounds x 4. Normal tympanic percussion. Soft, nontender, without masses or organomegaly. Karimi sign negative. No guarding or rebound tenderness. no CVA tenderness MUSCULOSKELETAL: No gross musculoskeletal defects. NEURO: Patient was alert and oriented to person place and time. No focal neurological deficits. Course Administered Medications Acetaminophen (Acetaminophen 325 Mg Tab) 650 mg PO Q4H PRN PRN Reason: pain/fever Stop: 05/16/23 03:15 Last Admin: 04/16/23 20:28 Dose: 650 mg Documented By: ROSETTE Hydrocodone Bitart/Acetaminophen (Hydrocodone/Acetamophen 5/325mg Tab) 2 tab PO Q4H PRN PRN Reason: SEVERE Pain (7,8,9,10) Stop: 04/30/23 02:17 Last Admin: 04/17/23 21:29 Dose: 2 tab Documented By: Admin: 04/17/23 09:48 Dose: 2 tab Documented By: CLEMENTINA Hydrocodone Bitart/Acetaminophen (Hydrocodone/Acetamophen 5/325mg Tab) 1 tab PO Q4H PRN PRN Reason: MODERATE Pain (4,5,6) & Pre PT Stop: 04/30/23 02:17 Last Admin: 04/17/23 16:58 Dose: 1 tab Documented By: Admin: 04/17/23 05:38 Dose: 1 tab Documented By: Admin: 04/16/23 02:31 Dose: 1 tab Documented By: VIDAL Amlodipine Besylate (Amlodipine Besylate 5 Mg Tab) [facility] [place] Stop: 05/16/23 08:59 Last Admin: 04/17/23 08:41 Dose: 10 mg Documented By: Admin: 04/16/23 09:13 Dose: 10 mg Documented By: ÓSCAR Ferrous Sulfate (Ferrous Sulfate 325 Mg Tab) 325 mg PO DAILY [facility] Stop: 05/16/23 08:59 Last Admin: 04/17/23 08:41 Dose: 325 mg Documented By: Admin: 04/16/23 09:13 Dose: 325 mg Documented By: ÓSCAR Hydralazine HCl (Hydralazine Tab 50 Mg Tab) 50 mg PO TID [facility]ONIDES Stop: 05/16/23 08:59 Last Admin: 04/17/23 19:57 Dose: 50 mg Documented By: Admin: 04/17/23 14:32 Dose: 50 mg Documented By: Admin: 04/17/23 08:42 Dose: 50 mg Documented By: Admin: 04/16/23 20:22 Dose: 50 mg Documented By: Admin: 04/16/23 15:22 Dose: 50 mg Documented By: Admin: 04/16/23 09:12 Dose: 50 mg Documented By: ÓSCAR Piperacillin Sod/Tazobactam (Sod 4.5 gm/ Dextrose) 100 mls @ 25 mls/hr IV Q8H [facility]; Protocol Stop: 04/23/23 09:59 Last Infusion: 04/17/23 21:31 Dose: Infused Documented By: Admin: 04/17/23 17:28 Dose: 25 mls/hr Documented By: Infusion: 04/17/23 14:10 Dose: Infused Documented By: Admin: 04/17/23 10:06 Dose: 25 mls/hr Documented By: Infusion: 04/17/23 07:05 Dose: Infused Documented By: Admin: 04/17/23 02:53 Dose: 25 mls/hr Documented By: Infusion: 04/16/23 21:52 Dose: Infused Documented By: Admin: 04/16/23 17:52 Dose: 25 mls/hr Documented By: Infusion: 04/16/23 13:56 Dose: Infused Documented By: Admin: 04/16/23 09:17 Dose: 25 mls/hr Documented By: ÓSCAR Lorazepam (Lorazepam 0.5 Mg Tab) 0.25 mg PO HS PRN PRN Reason: anxiety Stop: 05/16/23 03:15 Last Admin: 04/16/23 20:28 Dose: 0.25 mg Documented By: Admin: 04/16/23 11:02 Dose: 0.25 mg Documented By: ZARINA Magnesium Oxide (Magnesium Oxide 400 Mg Tab) 400 mg PO QAM LEONIDES Stop: 05/16/23 08:59 Last Admin: 04/17/23 08:40 Dose: 400 mg Documented By: Admin: 04/16/23 09:09 Dose: 400 mg Documented By: ÓSCAR Melatonin (Melatonin 3 Mg Tab) 3 mg PO HS PRN PRN Reason: Insomnia Stop: 05/16/23 03:15 Last Admin: 04/16/23 20:29 Dose: 3 mg Documented By: ROSETTE Metoprolol Tartrate (Metoprolol Tartrate 25 Mg Tab) 25 mg PO BID LEONIDES Stop: 05/16/23 08:59 Last Admin: 04/17/23 19:56 Dose: 25 mg Documented By: Admin: 04/17/23 08:42 Dose: 25 mg Documented By: Admin: 04/16/23 20:23 Dose: 25 mg Documented By: Admin: 04/16/23 09:12 Dose: 25 mg Documented By: ÓSCAR Multivitamins/Minerals (Cerovite Adv Formula Tab) 1 tab PO DAILY [facility] Stop: 05/16/23 08:59 Last Admin: 04/17/23 08:41 Dose: 1 tab Documented By: Admin: 04/16/23 09:12 Dose: 1 tab Documented By: ÓSCAR Pantoprazole Sodium (Pantoprazole 40 Mg Tab) 40 mg PO BID LEONIDES Stop: 05/16/23 08:59 Last Admin: 04/17/23 19:57 Dose: 40 mg Documented By: Admin: 04/17/23 08:42 Dose: 40 mg Documented By: Admin: 04/16/23 20:23 Dose: 40 mg Documented By: Admin: 04/16/23 09:12 Dose: 40 mg Documented By: ÓSCAR Potassium Chloride (Potassium Chloride Crtab 20 Meq Tabcr) 20 meq PO DAILY [facility]ON[facility]ES Stop: 05/16/23 08:59 Last Admin: 04/17/23 08:46 Dose: 20 meq Documented By: Admin: 04/16/23 09:13 Dose: 20 meq Documented By: ÓSCAR Rosuvastatin Calcium (Rosuvastatin Calcium 5 Mg Tab) 5 mg PO DAILY [facility]ES Stop: 05/16/23 08:59 Last Admin: 04/17/23 08:42 Dose: 5 mg Documented By: Admin: 04/16/23 09:12 Dose: 5 mg Documented By: ÓSCAR Discontinued Medications Ceftriaxone Sodium (Rocephin) 2,000 mg in 50 mls @ 100 mls/hr IV NOW STA Stop: 04/15/23 22:58 Last Infusion: 04/16/23 00:05 Dose: Infused Documented By: Admin: 04/15/23 23:30 Dose: 100 mls/hr Documented By: VIDAL Sodium Chloride (Nss) 500 mls @ 999 mls/hr IV .Q31M ONE Stop: 04/15/23 22:59 Last Infusion: 04/16/23 00:05 Dose: Infused Documented By: Admin: 04/15/23 23:12 Dose: 999 mls/hr Documented By: VIDAL Lorazepam 0.5 mg/ Syringe 0.5 mls @ 2 mls/min IV NOW STA Stop: 04/16/23 01:47 Last Admin: 04/16/23 02:02 Dose: 2 mls/min Documented By: VIDAL Lorazepam 1 mg/ Syringe 1 mls @ 2 mls/min IV NOW STA Stop: 04/16/23 03:22 Last Admin: 04/16/23 03:37 Dose: 2 mls/min Documented By: VIDAL Ciprofloxacin (Cipro / D5w) 400 mg in 200 mls @ 100 mls/hr IV Q12H [facility]ONIDES; Protocol Stop: 04/23/23 03:59 Last Infusion: 04/16/23 06:12 Dose: Infused Documented By: Admin: 04/16/23 04:17 Dose: 100 mls/hr Documented By: VIDAL Piperacillin Sod/Tazobactam (Sod 4.5 gm/ Dextrose) 100 mls @ 200 mls/hr IV NOW STA; Protocol Stop: 04/16/23 03:49 Last Infusion: 04/16/23 04:09 Dose: Infused Documented By: Admin: 04/16/23 03:37 Dose: 200 mls/hr Documented By: VIDAL Influenza Virus Vaccine (Influenza Vaccine High-Dose (Hd-Iiv4) Pf 65+ 0.7ml Syr) 0.7 ml IM .ONCE ONE Stop: 04/16/23 12:10 Last Admin: 04/16/23 15:26 Dose: 0.7 ml Documented By: CLEMENTINA Lorazepam (Lorazepam 1 Mg/1 Ml Syr Ed Inj Use) Confirm Administered Dose 1 mg .ROUTE .STK-MED ONE Stop: 04/15/23 22:43 Last Admin: 04/15/23 22:45 Dose: 0.5 mg Documented By: VIDAL Lorazepam (Lorazepam 1 Mg/1 Ml Syr Ed Inj Use) 0.5 mg IV ONE STA Stop: 04/15/23 23:21 Last Admin: 04/15/23 23:23 Dose: Not Given Documented By: VIDAL Lorazepam (Lorazepam 0.5 Mg Tab) 0.5 mg PO NOW STA Stop: 04/17/23 20:33 Last Admin: 04/17/23 21:29 Dose: 0.5 mg Documented By: ROSE Medical Decision Making Medical Records Attestation: I reviewed the patient's medical records. Home Medications Current Medication List: was personally reviewed by me Laboratory Data Attestation: I reviewed the patient's lab results. 04/17/23 06:58 04/17/23 08:37 Lab Results 04/15/23 04/15/23 04/16/23 Range/Units 22:21 23:14 05:03 WBC 8.27 (4.8-10.8) K/ul RBC 4.10 L (4.70-6.10) M/uL Hgb 13.0 L (14.0-18.0) g/dl Hct 38.4 L (42.0-52.0) % MCV 93.7 (80.0-100.0) fL MCH 31.7 (25.0-34.0) pg MCHC 33.9 (32.0-36.0) g/dL RDW Std Deviation 53.9 H (36.4-46.3) fL RDW Coeff of Randall 15.8 H (11.5-14.5) % Plt Count 208 (130-400) K/uL MPV 9.4 (9.4-12.4) fL Immature Gran % (Auto) 0.7 % Neut % (Auto) 71.9 % Lymph % (Auto) 10.3 % [place] % (Auto) 11.1 % Eos % (Auto) 5.3 % Baso % (Auto) 0.7 % Neut # (Auto) 5.94 (1.40-6.50) K/uL Lymph # (Auto) 0.85 L (1.20-3.40) K/uL [place] # (Auto) 0.92 H (0.11-0.59) K/uL Eos # (Auto) 0.44 (0.00-0.50) K/uL Baso # (Auto) 0.06 (0.00-0.20) K/uL Immature Gran # (Auto) 0.06 (0.01-0.20) K/uL Sodium 136 (136-145) mmol/L Potassium 4.0 (3.5-5.1) mmol/L Chloride 100 (98-107) mmol/L Carbon Dioxide 27 (21-32) mmol/L Anion Gap 9 (3-11) BUN 26 H (6-23) mg/dl Creatinine 1.16 (0.6-1.4) mg/dl Est Cr Clr Drug Dosing Not Reportable Est GFR ( Amer) 65.3 ml/min Est GFR (Non-Af Amer) 56.3 ml/min BUN/Creatinine Ratio 22.4 H (10-20) Glucose 101 H (70-99(Fasting)) mg/dl Lactate 0.9 (0.4-2.0) mmol/L Calcium 9.6 (8.6-10.3) mg/dl Total Bilirubin 0.6 (0.2-1.0) mg/dl AST 15 (13-39) U/L ALT 10 (7-52) U/L Alkaline Phosphatase 89 (34-104) U/L Total Protein 7.7 (6.0-8.3) gm/dl Albumin 4.4 (3.4-5.0) gm/dl Globulin 3.3 (2.5-4.0) gm/dl Albumin/Globulin Ratio 1.3 (0.9-2) Nasal Screen MRSA (PCR) Negative (Negative) Imaging Data Attestation: I personally reviewed and interpreted this imaging study as follows: Radiologist's Impression: Venous Doppler Study 04/15/23 22:29 Exam(s): US VENOUS RIGHT LOWER EXTREMITY EXAM: US Duplex Right Lower Extremity Veins CLINICAL HISTORY: Reason for exam: ? DVT. TECHNIQUE: Real-time duplex ultrasound scan of the right lower extremity veins integrating B-mode two-dimensional vascular structure, Doppler spectral analysis, color flow Doppler imaging and compression. COMPARISON: No relevant prior studies available. FINDINGS: Deep veins: Unremarkable. No DVT in the visualized common femoral, femoral, proximal deep femoral or popliteal veins. The veins demonstrate normal color flow, are normally compressible, with normal phasic flow and/or augmentation response. Soft tissues: No acute findings. No popliteal cyst. IMPRESSION: No evidence of the right lower extremity deep venous thrombosis. Electronically signed by: Aaron Clemente M.D. 04/16/23 02:38 AM MDM Narrative Prior records reviewed and summarized as above. Triage Nursing notes reviewed. Additional history obtained from nursing. The patient's history was concerning for swelling and redness of the skin. Differential diagnosis: Etiologies such as cellulitis, abscess, MRSA infection, DVT, necrotizing fasciitis, dermatitis, drug eruption, as well as others were entertained.. Physical examination: The physical examination was consistent with cellulitis ER treatment provided: Rocephin was ordered Ativan was ordered On reassessment the patient felt better. Diagnostics interpreted by me: The labs Independently Interpreted by myself revealed no worrisome leukocytosis, negative lactic Blood cultures pending Imaging studies: Ultrasound was negative for DVT per my independent interpretation Tib-fib x-ray negative for fracture per my independent interpretation Consultation: A consultation was placed with the hospitalist. The case was discussed and diagnostics were reviewed. The patient was evaluated in the ER for further treatment. This appears to be isolated cellulitis. Patient cellulitis is quite extensive. His leg was quite swollen. No DVT. He was started on antibiotics. Medicine was consulted and the case was discussed. He will admitted to the medical service. Patient states he would like to leave soon as possible as he needs to make arrangements for his 's as she tonight. By the evaluation outlined above emergent etiologies such as abscess, necrotizing fasciitis, DVT, as well as others were deemed relatively unlikely. The pt informed about the findings as listed above. All questions were answered and pleased with the treatment. The chart was completed utilizing [employer] voice recognition software. Grammatical errors, random word insertions, pronoun errors, and incomplete sentences are an occassional consequence of this system due to software limitations, ambient noise, and hardware issues. Any formal questions or concerns about the content, text, or information contained within the body of this dictation should be directly addressed to the physician restaurant assistant for clarification. Impression & Plan Cellulitis of leg, right Discharge Plan Visit Data Chief Complaint: Leg Injury/Pain Stated Complaint: LOWER R LEG CELLULITIS X1 MONTH ED Provider: Carlo Emery ED Midlevel Provider: Lenora Chapin Discharge Problem: Cellulitis of leg, right Patient Disposition: Admitted As Inpatient Condition: Good Discharge Instructions Interventions: ED Discharge Assessment Last Done: 04/16/23 03:16 Addendum April 16, 2023 19:48 HPI: The patient is a 87-year-old gentleman who presents to the emergency department for evaluation of right lower leg pain and infection that has been progressing over the past month. A neighbor had seen the patient and was concerned about the patient's leg wound and contacted the patient's son who is a patient come emergency department. Unfortunately this occurred at the same time as the patient's 's which occurred in a intermediate facility and police presented to the emergency department to inform the patient of this. A/P: Severe cellulitis. WBC within normal limits. H/H similar to prior. Platelets within normal limits. Chemistry without metabolic acidosis. LFTs unremarkable. Ultrasound negative for DVT. Antibiotics initiated. Patient was referred to the hospital service for admission. Appreciate case management consultation and assistance surrounding the of the patient's . I was consulted by the Advanced Practice Provider and was substantively involved in the patient's visit.This includes aspects of the HPI, MDM, diagnostic interpretations, and disposition/plan. I discussed the case with the FABIAN and agree with the findings and plan as documented in FABIAN Tavares's note.
--- NOTE | 2023-04-16 00:40 | Hospitalist Consultation ---
Date of Consultation April 16, 2023 History of Present Illness Allergies Allergy/AdvReac Type Severity Reaction Status Date / Time No Known Allergies Allergy Verified 04/15/23 22:44 Home Medications Medication Instructions Recorded Confirmed Type vitamins A,C,Y-kgho-saqwid 4,296 1 cap PO BID #60 caps 08/05/18 04/15/23 Rx mcg-226 mg-90 mg capsule (PreserVision AREDS) coenzyme Q10 100 mg capsule 100 mg PO DAILY 12/14/18 04/15/23 History magnesium oxide 400 mg (241.3 mg 400 mg PO QAM #30 tabs 09/19/20 04/15/23 Rx magnesium) tablet ferrous sulfate 325 mg (65 mg 325 mg PO DAILY #60 tabs 05/21/21 04/15/23 Rx iron) tablet (Feosol) pantoprazole 40 mg tablet,delayed 40 mg PO BID #180 tabs 06/26/22 04/15/23 Rx release rosuvastatin 5 mg tablet (Crestor) 5 mg PO DAILY #90 tabs 08/19/22 04/15/23 Rx amlodipine 5 mg tablet (Norvasc) 10 mg (2 x 5 mg) PO QAM #60 tabs 12/11/22 04/15/23 Rx metoprolol tartrate 25 mg tablet 25 mg PO BID #60 tabs 12/11/22 04/15/23 Rx hydralazine 50 mg tablet 50 mg PO TID #270 tabs 01/22/23 04/15/23 Rx lorazepam 0.5 mg tablet 0.25 mg PO HS PRN anxiety 04/15/23 04/15/23 History potassium chloride 40 mEq/15 mL 20 meq PO DAILY 04/15/23 04/15/23 History oral liquid Patient History Medical History Gastric ulcer GI bleed History of CVA (cerebrovascular accident) Symptomatic anemia Paroxysmal A-fib Elevated CK Hyperglycemia Insomnia Hypothyroidism Hepatic steatosis Anxiety Alcohol abuse Hypertensive urgency Hypertension Surgical History History of colonoscopy History of tonsillectomy History of cataract surgery Family History Mother , age 90 of uncertain causes. Anxiety Father , age 55 of pulmonary disease and alcoholism Lung disease Sister Kidney stone Denies family history of Ovarian cancer Prostate cancer Myocardial infarction Breast cancer Colorectal cancer Social History Smoking Status: Never smoker Tobacco Type: Cigarettes Age Started Using Tobacco: 20; Age Quit Using Tobacco: 60; Cigarettes Per Day: social smoker, off and on; Second Hand Exposure: No; Do You Dip or Chew Tobacco: No; Hx Alcohol Use: No Hx Substance Use: No Preferred Language: Kazakh Communication Ability: Effective Visual Impairment: No Limitations Hearing Ability: Normal Manager Product Marketing Required: No Beliefs That Will Affect Care: None marital status: Current Living Situation: Spouse Current Living Situation Comment: Lives alone with spouse who is WCB current occupational status: retired 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
--- NOTE | 2023-04-16 01:06 | History & Physical Report ---
Date of Service April 16, 2023 Assessment & Plan (1) Cellulitis of leg, right: Plan: -Venous duplex ultrasound of the right lower extremity negative for DVTs. Should possibly consider arterial Doppler study if patient stays. -X-ray of the right lower extremity pending read. -Blood cultures collected and pending. -CBC without leukocytosis, hemoglobin stable. CMP benign -MRSA swab collected. Hold off on MRSA coverage. -Patient has not had any positive cultures for MRSA in the past. -Will cover for Pseudomonas infection given clinical exam judgment. -Started on Cipro and Zosyn. -PT/OT ordered. -No anticoagulation given due to anticipation of short stay as explained below. -Patient was reluctant to stay for treatment at this time as after he came to the hospital he has found out that his has passed. This was a shock to the patient and he wished to return home immediately. Due to it being late at night and the patient not having a ride he agreed to stay for the night and to see Dr. Lovelace in the morning and hopes to be discharged. Explained to patient that there is not good oral coverage for Pseudomonas. Did discuss that delayed treatment as well could lead to amputation and possibly . Also instructed that we could possibly set up for him to do outpatient IV antibiotic treatment though is hard to coordinate overnight. (2) Anxiety: Plan: -Takes Ativan 0.25 at night as needed for sleep. -Required 2 mg of Ativan after admission due to anxiety from 's . (3) Hypothyroidism: Plan: -Continue home medications. (4) Hypertension: Plan: -Continue home medications. History of Present Illness Chief Complaint: Right lower leg cellulitis Primary Care Provider: Nicolas Foreman MD Patient is a 87yo male with history of HTN, Hypothyroidism and prior gastric ulcer presenting with right lower extremity cellulitis. Patient has had right lower extremity edema for years. States that over the past 2 weeks the right leg started to have more swelling and weeping. States that the weeping would soak through his socks. He also states over the past 2 weeks his right leg has become painful. He denies any fevers or chills at this time. Patient is very distraught after coming to the hospital and finding out that his had . He is reluctant to give a full HPI and wants to return home to be with his family. Allergies Allergy/AdvReac Type Severity Reaction Status Date / Time No Known Allergies Allergy Verified 04/15/23 22:44 Home Medications Medication Instructions Recorded Confirmed Type vitamins A,C,Q-klst-xkfexs 4,296 1 cap PO BID #60 caps 08/05/18 04/15/23 Rx mcg-226 mg-90 mg capsule (PreserVision AREDS) coenzyme Q10 100 mg capsule 100 mg PO DAILY 12/14/18 04/15/23 History magnesium oxide 400 mg (241.3 mg 400 mg PO QAM #30 tabs 09/19/20 04/15/23 Rx magnesium) tablet ferrous sulfate 325 mg (65 mg 325 mg PO DAILY #60 tabs 05/21/21 04/15/23 Rx iron) tablet (Feosol) pantoprazole 40 mg tablet,delayed 40 mg PO BID #180 tabs 06/26/22 04/15/23 Rx release rosuvastatin 5 mg tablet (Crestor) 5 mg PO DAILY #90 tabs 08/19/22 04/15/23 Rx amlodipine 5 mg tablet (Norvasc) 10 mg (2 x 5 mg) PO QAM #60 tabs 12/11/22 04/15/23 Rx metoprolol tartrate 25 mg tablet 25 mg PO BID #60 tabs 12/11/22 04/15/23 Rx hydralazine 50 mg tablet 50 mg PO TID #270 tabs 01/22/23 04/15/23 Rx lorazepam 0.5 mg tablet 0.25 mg PO HS PRN anxiety 04/15/23 04/15/23 History potassium chloride 40 mEq/15 mL 20 meq PO DAILY 04/15/23 04/15/23 History oral liquid Past Med/Surg History Medical History (Updated 04/16/23 @ 04:43 by Blade Ambrocio DO) Hypertension Gastric ulcer GI bleed History of CVA (cerebrovascular accident) Symptomatic anemia Paroxysmal A-fib Elevated CK Hyperglycemia Insomnia Hypothyroidism Hepatic steatosis Anxiety Alcohol abuse Hypertensive urgency Surgical History History of colonoscopy History of tonsillectomy History of cataract surgery Family History Mother , age 90 of uncertain causes. Anxiety Father , age 55 of pulmonary disease and alcoholism Lung disease Sister Kidney stone Denies family history of Ovarian cancer Prostate cancer Myocardial infarction Breast cancer Colorectal cancer Social History Smoking Status: Never smoker Tobacco Type: Cigarettes Age Started Using Tobacco: 20; Age Quit Using Tobacco: 60; Cigarettes Per Day: social smoker, off and on; Second Hand Exposure: No; Do You Dip or Chew Tobacco: No; Hx Alcohol Use: No Hx Substance Use: No Preferred Language: Uruguayan Communication Ability: Effective Visual Impairment: No Limitations Hearing Ability: Normal Day Habilitation Specialist Required: No Beliefs That Will Affect Care: None marital status: Current Living Situation: Spouse Current Living Situation Comment: Lives alone with spouse who is WCB current occupational status: retired 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 SKIN: Tender right lower leg erythema and malodorous with edema, warmth, and overlying green patches. pedal pulses +2 equal and present bilaterally capillary reflex less than 2 seconds. HEENT: Normocephalic. PERRLA. EOMI. Nares patent. Mucous membranes moist. Neck is supple without nuchal rigidity. HEART: Regular rate and rhythm LUNGS: Clear to auscultation bilaterally without wheezes, rales or rhonchi. No retractions or accessory muscle use. ABDOMEN: Positive bowel sounds x 4. Normal tympanic percussion. Soft, nontender, without masses or organomegaly MUSCULOSKELETAL: No gross musculoskeletal defects. NEURO: Patient was alert and oriented to person place and time. No focal neurological deficits. Results & Data Results & Data Vital Signs (Past 12 Hours) Vital Signs Temp Pulse Pulse Resp BP Pulse Ox O2 Del Method 04/15/23 22:26 75 20 98 Room Air 04/15/23 22:19 68 04/15/23 21:36 36.6 C 68 18 171/78 H 98 Room Air Supervising Physician Co-Signing Physician Notes Attending addendum: I have physically seen this patient, have supervised the medical residents activities, and agree with the H&P unless as otherwise noted. Assessment and Plan: RLE cellulitis- Infection gradually worsening over the past month Venous Doppler negative for DVT MRSA swab Concern for Pseudomonas infection due to malodorous presentation Cipro 400mg IV q12h Zosyn 4.5g iV q6h Follow blood and wound cultures [place] 5/325, 1 every 4 hours as needed for moderate pain [place] 5/325, 2 every 4 hours as needed for severe pain Anxiety/ Family stress with just passing away- Patient was notified by police while in the ED this evening that his while at [facility] The patient did not want to stay in the hospital this evening, but agreed to stay overnight, and wants to be discharged in the morning He did receive lorazepam 2 mg while in the ED Continue lorazepam 0.25 mg at bedtime as needed Hypertension- Continue amlodipine, hydralazine, metoprolol succinate with hold parameters
[2023-04-16] MEDS: LORazepam 0.5 MG in SYRINGE 0.25 ML IV STA (02:02)
[2023-04-16] MEDS: HYDROCODONE/ACETAMOPHEN 5/325MG TAB PO PRN (02:31)
--- NOTE | 2023-04-16 02:39 | Ultrasound Report ---
Exam(s): US VENOUS RIGHT LOWER EXTREMITY EXAM: US Duplex Right Lower Extremity Veins CLINICAL HISTORY: Reason for exam: ? DVT. TECHNIQUE: Real-time duplex ultrasound scan of the right lower extremity veins integrating B-mode two-dimensional vascular structure, Doppler spectral analysis, color flow Doppler imaging and compression. COMPARISON: No relevant prior studies available. FINDINGS: Deep veins: Unremarkable. No DVT in the visualized common femoral, femoral, proximal deep femoral or popliteal veins. The veins demonstrate normal color flow, are normally compressible, with normal phasic flow and/or augmentation response. Soft tissues: No acute findings. No popliteal cyst. IMPRESSION: No evidence of the right lower extremity deep venous thrombosis. Electronically signed by: Aaron Clemente M.D. 04/16/23 02:38 AM
[2023-04-16] MEDS ORDERED: ONDANSETRON INJ 2 MG/ML 2 ML VIAL IV PRN (03:16)
[2023-04-16] MEDS: PIPERACILLIN/TAZOBACTAM 4.5 GM in DEXTROSE 5% MINI-B 100 ML IV STA (03:37)
[2023-04-16] MEDS: LORazepam 1 MG in SYRINGE 0.5 ML IV STA (03:37)
[2023-04-16] MEDS: CIPROFLOXACIN / D5W 400 MG/200 ML BAG IV SCH (04:17)
--- NOTE | 2023-04-16 05:54 | Billing Data ---
Date of Service April 16, 2023 Coding Level of Care Code 65253 INT INP/OBS CARE
--- NOTE | 2023-04-16 07:20 | XRay Report ---
XR tibia fibula RT 2V CLINICAL HISTORY: Right lower extremity cellulitis. COMPARISON STUDY: Right ankle 12/10/2018. FINDINGS: No fracture or dislocation within the right tibia or fibula. No bony destructive changes to suggest an osteomyelitis. No radiopaque foreign bodies. Vascular calcifications are noted. Diffuse s oft tissue swelling within the right lower leg. No soft tissue gas identified. Small osteochondral de fect suggested at the lateral femoral condyle. IMPRESSION: 1. No fractures within the right lower leg. 2. Diffuse soft tissue swelling. No bony destructive changes. ACT 112: Negative or not required by law. Electronically signed by: Giacomo Coles M.D. 04/16/2023 7:19 AM
--- NOTE | 2023-04-16 07:20 | Hospitalist Progress Note ---
Date of Service April 16, 2023 Assessment & Plan (1) Cellulitis of leg, right: Plan: -Venous duplex ultrasound of the right lower extremity negative for DVTs. -X-ray of the right lower extremity pending read. -Blood cultures collected and pending. -Will cover for Pseudomonas -Started on Zosyn. wound care consult -PT/OT ordered. -No anticoagulation given due to anticipation of short stay as explained below. Very complex situation. Patient's was recently placed in a senior living home for large decubitus ulcer she overnight on the day prior to admission. The patient wants to go home however he has no home caregivers and reportedly according to his neighbor his home was in disrepair and unfit to live in. Patient is blind is ambulatory challenges and has a large ulceration on his leg which she cannot care for. Home nurses cannot supply wound care the patient cannot afford to have 24-hour care or in-house wound care and in the past has refused to have people come to his home. I spoke to his son, Jamie, who lives in [place] and is manage is strange and this gentleman for 20 years has not spoken to his father till today states that he will be willing to come to [place] to help assist in this patient's care but will not be an in-house caregiver for him. At this time we are using case management area association of aging to determine safe transition to living situation however this is not where the patient desires. He only really wants to go home but has no good plan in place nor local caregivers to care for him and there is concerned that his home does not fit to live and (2) Anxiety: Plan: -Takes Ativan 0.25 at night as needed for sleep. -Required 2 mg of Ativan after admission due to anxiety from 's . (3) Hypothyroidism: Plan: -Chronic stable continue since (4) Hypertension: Plan: -Chronic stable continue Plan Challenging psychosocial situation will need case management to help to likely find emergency placement and also to help coordinate with his 's arrangements. Admission and Anticipated Discharge Date Admission Date: April 16, 2023 Subjective pt is very disgruntled wants to go home, reportedly from his neighbor, home is not liveable, by the review of his hygiene has not been caring for himself well has decubitus ulcer on right posterior calf with surrounding cellulitis unkempt toe nails and foot hygiene Physical Exam Physical Exam: pt is with cardiac murmur lungs are clear extremities are with edema, chronic venous stasis changes large stage 2 decubitus ulcer right posterior lower leg poa Results & Data Results & Data Vital Signs (Past 12 Hours) Vital Signs Temp Pulse Pulse Resp BP BP Pulse Ox 04/16/23 07:04 60 04/16/23 04:26 63 20 118/67 98 04/16/23 02:18 68 20 154/79 H 92 04/16/23 02:15 78 04/16/23 02:04 60 18 118/67 98 04/15/23 22:26 75 20 98 04/15/23 22:19 68 04/15/23 21:36 97.9 F 68 18 171/78 H 98 O2 Del Method O2 Flow Rate 04/16/23 07:04 04/16/23 04:26 Nasal Cannula 2 04/16/23 02:18 Room Air 04/16/23 02:15 04/16/23 02:04 Nasal Cannula 2 04/15/23 22:26 Room Air 04/15/23 22:19 04/15/23 21:36 Room Air Laboratory Results reviewed cbc reviewed chemistry PG Care Time/CCT Total # of Minutes Spent Total Time Spent with Patient: Total time spent is greater than 50% in coordination of care (as documented) at patient's floor/unit and/or counseling patient: Coding Level of Care Code 73827 SUB INP/OBS CARE 2/35MIN Diagnoses Cellulitis of leg, right L03.115 Anxiety F41.9 Hypothyroidism E03.9 Hypertension I10
--- NOTE | 2023-04-16 08:24 | Electrocardiogram Report ---
Test Reason : Blood Pressure : / mmHG Vent. Rate : 066 BPM Atrial Rate : 066 BPM P-R Int : 308 ms QRS Dur : 088 ms QT Int : 400 ms P-R-T Axes : 078 -10 054 degrees QTc Int : 419 ms Poor data quality, interpretation may be adversely affected Sinus rhythm with 1st degree A-V block Abnormal ECG When compared with ECG of 01-DEC-2022 03:43, No significant change was found Confirmed by Tim Hooks ([id number]) on 04/16/2023 8:23:58 AM Referred By: REFERRED SELF Confirmed By:Sudhir Hooks
[2023-04-16] MEDS ORDERED: NON-FORMULARY MEDICATION (Coenzyme Q10 100 mg capsule) PO SCH (09:00)
[2023-04-16] MEDS: MAGNESIUM OXIDE 400 MG TAB PO SCH (09:09)
[2023-04-16] MEDS: hydrALAZINE TAB 50 MG TAB PO SCH (09:12)
[2023-04-16] MEDS: METOPROLOL TARTRATE 25 MG TAB PO SCH (09:12)
[2023-04-16] MEDS: PANTOprazole 40 MG TAB PO SCH (09:12)
[2023-04-16] MEDS: CEROVITE ADV FORMULA TAB PO SCH (09:12)
[2023-04-16] MEDS: ROSUVASTATIN CALCIUM 5 MG TAB PO SCH (09:12)
[2023-04-16] MEDS: amLODIPine BESYLATE 5 MG TAB PO SCH (09:13)
[2023-04-16] MEDS: FERROUS SULFATE 325 MG TAB PO SCH (09:13)
[2023-04-16] MEDS: POTASSIUM CHLORIDE CRTAB 20 MEQ TABCR PO SCH (09:13)
[2023-04-16] MEDS: PIPERACILLIN/TAZOBACTAM 4.5 GM in DEXTROSE 5% MINI-B 100 ML IV SCH (09:17)
[2023-04-16] MEDS: LORazepam 0.5 MG TAB PO PRN (11:02)
[2023-04-16] MEDS: INFLUENZA VACCINE HIGH-DOSE (HD-IIV4) PF 65+ 0.7mL SYR IM ONE (15:26)
[2023-04-16] MEDS: ACETAMINOPHEN 325 MG TAB PO PRN (20:28)
[2023-04-16] MEDS: MELATONIN 3 MG TAB PO PRN (20:29)
[2023-04-17 07:33] LABS: Basophils # (auto) 0.06 K/uL (0.00-0.20); Basophils % (auto) 0.8 %; Eosinophils # (auto) 0.26 K/uL (0.00-0.50); Eosinophils % (auto) 3.3 %; Hematocrit (blood only) 32.2 % (42.0-52.0); Hemoglobin 10.8 g/dl (14.0-18.0); Immature Granulocytes # (auto) 0.05 K/uL (0.01-0.20); Immature Granulocytes % (auto) 0.6 %; Lymphocytes # (auto) 0.58 K/uL (1.20-3.40); Lymphocytes % (auto) 7.3 %; Mean Corpuscular Hemoglobin 30.9 pg (25.0-34.0); Mean Corpuscular Hgb Conc 33.5 g/dL (32.0-36.0); Mean Corpuscular Volume 92.3 fL (80.0-100.0); Mean Platelet Volume 9.7 fL (9.4-12.4); Monocytes # (auto) 1.02 K/uL (0.11-0.59); Monocytes % (auto) 12.8 %; Neutrophils # (auto) 6.02 K/uL (1.40-6.50); Neutrophils % (auto) 75.2 %; Platelet Count 178 K/uL (130-400); RDW Coefficient of Variation 15.7 % (11.5-14.5); RDW Standard Deviation 52.5 fL (36.4-46.3); Red Blood Count 3.49 M/uL (4.70-6.10); White Blood Count 7.99 K/ul (4.8-10.8)
[2023-04-17 07:59] LABS: Alanine Aminotransferase 9 U/L (7-52); Albumin Globulin Ratio 1.3 (0.9-2); Albumin Level 3.6 gm/dl (3.4-5.0); Alkaline Phosphatase 55 U/L (34-104); Anion Gap 6 (3-11); BUN Creatinine Ratio 17.9 (10-20); Bilirubin,Total 1.1 mg/dl (0.2-1.0); Blood Urea Nitrogen 20 mg/dl (6-23); Calcium 8.7 mg/dl (8.6-10.3); Carbon Dioxide 27 mmol/L (21-32); Chloride 102 mmol/L (98-107); Est GFR (African American) 68.1 ml/min; Est GFR (Non-African American) 58.7 ml/min; Globulin 2.7 gm/dl (2.5-4.0); Glucose 99 mg/dl (70-99(Fasting)); Magnesium 1.8 mg/dl (1.7-2.4); Sodium 135 mmol/L (136-145); Total Protein 6.3 gm/dl (6.0-8.3)
[2023-04-17 09:12] LABS: Potassium 3.8 mmol/L (3.5-5.1)
[2023-04-17] MEDS: HYDROCODONE/ACETAMOPHEN 5/325MG TAB PO PRN (09:48)
[2023-04-17] MEDS: LORazepam 0.5 MG TAB PO STA (21:29)
--- NOTE | 2023-04-17 22:30 | Hospitalist Progress Note ---
Date of Service April 17, 2023 Assessment & Plan (1) Cellulitis of leg, right: Plan: -Venous duplex ultrasound of the right lower extremity negative for DVTs. -X-ray of the right lower extremity pending read. -Blood cultures collected and pending. -Will cover for Pseudomonas -Started on Zosyn. wound care consult -PT/OT ordered. -No anticoagulation given due to anticipation of short stay as explained below. Very complex situation. Patient's was recently placed in a detention home for large decubitus ulcer she overnight on the day prior to admission. The patient wants to go home however he has no home caregivers and reportedly according to his neighbor his home was in disrepair and unfit to live in. Patient is blind is ambulatory challenges and has a large ulceration on his leg which she cannot care for. Home nurses cannot supply wound care the patient cannot afford to have 24-hour care or in-house wound care and in the past has refused to have people come to his home. Tried calling Jamie but no answer[facility] and states he lives in [place] and is manage is strange and this gentleman for 20 years has not spoken to his father till today states that he will be willing to come to [place] to help assist in this patient's care but will not be an in-house caregiver for him. At this time we are using case management area association of aging to determine safe transition to living situation however this is not where the patient desires. Patient now agreeable to rehab but his ultimate goal is to go home or move in with his son. there is concern that his home is not fit to live (2) Anxiety: Plan: -Takes Ativan 0.25 at night as needed for sleep. -Required 2 mg of Ativan after admission due to anxiety from 's . (3) Hypothyroidism: Plan: -Chronic stable continue since (4) Hypertension: Plan: -Chronic stable continue Plan Challenging psychosocial situation will need case management to help to likely find emergency placement and also to help coordinate with his 's arrangements. Admission and Anticipated Discharge Date Admission Date: April 16, 2023 Subjective Patient reports no new symptoms. Review of Systems Review of Systems: All systems reviewed & are unremarkable except as noted in HPI & below Physical Exam Physical Exam: pt is with cardiac murmur lungs are clear extremities are with edema, chronic venous stasis changes previous provider noted: large stage 2 decubitus ulcer right posterior lower leg poa currently with dry dressing. Results & Data Results & Data Vital Signs (Past 12 Hours) Vital Signs Temp Pulse Resp BP BP Pulse Ox O2 Del Method 04/17/23 21:05 Room Air 04/17/23 19:40 36.8 C 66 18 150/58 H 93 Room Air 04/17/23 16:22 36.5 C 80 18 156/58 H 96 Room Air PG Care Time/CCT Total # of Minutes Spent Total Time Spent with Patient: Total time spent is greater than 50% in coordination of care (as documented) at patient's floor/unit and/or counseling patient: Coding Level of Care Code 37336 SUB INP/OBS CARE 2/35MIN Diagnoses Cellulitis of leg, right L03.115 Anxiety F41.9 Hypothyroidism E03.9 Hypertension I10
[2023-04-18 08:10] LABS: Hematocrit (blood only) 31.8 % (42.0-52.0); Mean Corpuscular Hemoglobin 31.9 pg (25.0-34.0); Mean Corpuscular Hgb Conc 34.6 g/dL (32.0-36.0); Mean Corpuscular Volume 92.2 fL (80.0-100.0); Mean Platelet Volume 9.9 fL (9.4-12.4); Platelet Count 175 K/uL (130-400); RDW Coefficient of Variation 15.9 % (11.5-14.5); RDW Standard Deviation 52.8 fL (36.4-46.3); Red Blood Count 3.45 M/uL (4.70-6.10); White Blood Count 7.42 K/ul (4.8-10.8)
[2023-04-18 08:26] LABS: BUN Creatinine Ratio 18.6 (10-20); C Reactive Protein 4.73 mg/dl (0-0.5); Calcium 8.7 mg/dl (8.6-10.3); Creatinine Clr Calc Pharmacy 41.7 ml/min; Est GFR (African American) 57.4 ml/min; Est GFR (Non-African American) 49.5 ml/min
--- NOTE | 2023-04-18 21:50 | Hospitalist Progress Note ---
Date of Service April 18, 2023 Assessment & Plan (1) Cellulitis of leg, right: Plan: -Venous duplex ultrasound of the right lower extremity negative for DVTs. -X-ray of the right lower extremity pending read. -Blood cultures collected and pending. -Will cover for Pseudomonas -Started on Zosyn. wound care consult -PT/OT ordered. -No anticoagulation given due to anticipation of short stay as explained below. Very complex situation. Patient's was recently placed in a custodial home for large decubitus ulcer she overnight on the day prior to admission. The patient wants to go home however he has no home caregivers and reportedly according to his neighbor his home was in disrepair and unfit to live in. Patient is blind is ambulatory challenges and has a large ulceration on his leg which she cannot care for. Home nurses cannot supply wound care the patient cannot afford to have 24-hour care or in-house wound care and in the past has refused to have people come to his home. Tried calling [facility] but no answer. [facility] and states he lives in [place] and is manage is strange and this gentleman for 20 years has not spoken to his father till today states that he will be willing to come to [place] to help assist in this patient's care but will not be an in-house caregiver for him. At this time we are using case management area association of aging to determine safe transition to living situation however this is not where the patient desires. Patient now agreeable to rehab but his ultimate goal is to go home or move in with his son. there is concern that his home is not fit to live Patient continues to improve. (2) Anxiety: Plan: -Takes Ativan 0.25 at night as needed for sleep. -Required 2 mg of Ativan after admission due to anxiety from 's . (3) Hypothyroidism: Plan: -Chronic stable continue since (4) Hypertension: Plan: -Chronic stable continue Plan Challenging psychosocial situation will need case management to help to likely find emergency placement and also to help coordinate with his 's arrangements. Admission and Anticipated Discharge Date Admission Date: April 16, 2023 Subjective Patient reports no new symptoms. Review of Systems Review of Systems: All systems reviewed & are unremarkable except as noted in HPI & below Physical Exam Physical Exam: pt is with cardiac murmur lungs are clear extremities are with edema, chronic venous stasis changes previous provider noted: large stage 2 decubitus ulcer right posterior lower leg poa currently with dry dressing. Results & Data Results & Data Vital Signs (Past 12 Hours) Vital Signs Temp Pulse Resp BP BP Pulse Ox O2 Del Method 04/18/23 20:21 36.9 C 76 20 148/62 H 92 Room Air 04/18/23 14:09 37.1 C 63 16 146/64 H 93 Room Air PG Care Time/CCT Total # of Minutes Spent Total Time Spent with Patient: Total time spent is greater than 50% in coordination of care (as documented) at patient's floor/unit and/or counseling patient: Coding Level of Care Code 52399 SUB INP/OBS CARE 235MIN Diagnoses Cellulitis of leg, right L03.115 Anxiety F41.9 Hypothyroidism E03.9 Hypertension I10
[2023-04-19 07:11] LABS: Hematocrit (blood only) 33.3 % (42.0-52.0); Hemoglobin 11.3 g/dl (14.0-18.0); Mean Corpuscular Hemoglobin 31.4 pg (25.0-34.0); Mean Corpuscular Hgb Conc 33.9 g/dL (32.0-36.0); Mean Corpuscular Volume 92.5 fL (80.0-100.0); Mean Platelet Volume 9.5 fL (9.4-12.4); Platelet Count 192 K/uL (130-400); RDW Coefficient of Variation 15.6 % (11.5-14.5); RDW Standard Deviation 52.5 fL (36.4-46.3); White Blood Count 6.69 K/ul (4.8-10.8)
[2023-04-19 07:18] LABS: C Reactive Protein 4.78 mg/dl (0-0.5); Calcium 8.8 mg/dl (8.6-10.3); Creatinine Clr Calc Pharmacy 46.7 ml/min; Est GFR (African American) 65.9 ml/min; Est GFR (Non-African American) 56.9 ml/min; Potassium 3.8 mmol/L (3.5-5.1)
--- NOTE | 2023-04-19 21:48 | Hospitalist Progress Note ---
Date of Service April 19, 2023 Assessment & Plan (1) Cellulitis of leg, right: Plan: -Venous duplex ultrasound of the right lower extremity negative for DVTs. -X-ray of the right lower extremity pending read. -Blood cultures collected and pending. -Will cover for Pseudomonas -Started on Zosyn. wound care consult -PT/OT ordered. -No anticoagulation given due to anticipation of short stay as explained below. Very complex situation. Patient's was recently placed in a care home home for large decubitus ulcer she overnight on the day prior to admission. The patient wants to go home however he has no home caregivers and reportedly according to his neighbor his home was in disrepair and unfit to live in. Patient is blind is ambulatory challenges and has a large ulceration on his leg which she cannot care for. Home nurses cannot supply wound care the patient cannot afford to have 24-hour care or in-house wound care and in the past has refused to have people come to his home. Tried calling Jamie but no answer. [facility] and states he lives in [place] and is manage is strange and this gentleman for 20 years has not spoken to his father till today states that he will be willing to come to [place] to help assist in this patient's care but will not be an in-house caregiver for him. At this time we are using case management area association of aging to determine safe transition to living situation however this is not where the patient desires. Patient now agreeable to rehab but his ultimate goal is to go home or move in with his son. there is concern that his home is not fit to live Patient continues to improve. Tried consulting to trim the nails but this can only be done as an outpatient (2) Anxiety: Plan: -Takes Ativan 0.25 at night as needed for sleep. -Required 2 mg of Ativan after admission due to anxiety from 's . (3) Hypothyroidism: Plan: -Chronic stable continue since (4) Hypertension: Plan: -Chronic stable continue Plan Challenging psychosocial situation will need case management to help to likely find emergency placement and also to help coordinate with his 's arrangements. Admission and Anticipated Discharge Date Admission Date: April 16, 2023 Subjective 87 yo male reports no new symptoms. Review of Systems Review of Systems: All systems reviewed & are unremarkable except as noted in HPI & below Physical Exam Physical Exam: pt is with cardiac murmur lungs are clear extremities are with edema, chronic venous stasis changes previous provider noted: large stage 2 decubitus ulcer right posterior lower leg poa currently with dry dressing. Results & Data Results & Data Vital Signs (Past 12 Hours) Vital Signs Temp Pulse Pulse Resp BP BP Pulse Ox 04/19/23 21:08 36.8 C 54 L 16 171/63 H 93 04/19/23 15:18 36.8 C 60 18 136/53 L 94 04/19/23 13:45 72 131/70 O2 Del Method 04/19/23 21:08 Room Air 04/19/23 15:18 Room Air 04/19/23 13:45 PG Care Time/CCT Total # of Minutes Spent Total Time Spent with Patient: Total time spent is greater than 50% in coordination of care (as documented) at patient's floor/unit and/or counseling patient: Coding Level of Care Code 50256 SUB INP/OBS CARE 2/35MIN Diagnoses Cellulitis of leg, right L03.115 Anxiety F41.9 Hypothyroidism E03.9 Hypertension I10
[2023-04-19] MEDS: LORazepam 0.5 MG TAB PO STA (22:21)
[2023-04-20 06:01] LABS: Hematocrit (blood only) 34.9 % (42.0-52.0); Hemoglobin 11.9 g/dl (14.0-18.0); Mean Corpuscular Hemoglobin 31.2 pg (25.0-34.0); Mean Corpuscular Hgb Conc 34.1 g/dL (32.0-36.0); Mean Corpuscular Volume 91.4 fL (80.0-100.0); Mean Platelet Volume 9.4 fL (9.4-12.4); Platelet Count 205 K/uL (130-400); RDW Coefficient of Variation 15.5 % (11.5-14.5); RDW Standard Deviation 51.2 fL (36.4-46.3); Red Blood Count 3.82 M/uL (4.70-6.10); White Blood Count 8.35 K/ul (4.8-10.8)
[2023-04-20 06:21] LABS: BUN Creatinine Ratio 17.9 (10-20); C Reactive Protein 3.79 mg/dl (0-0.5); Est GFR (African American) 68.1 ml/min; Est GFR (Non-African American) 58.7 ml/min; Potassium 3.8 mmol/L (3.5-5.1)
[2023-04-20] MEDS ORDERED: COUGH DROP (SUGAR FREE) LOZ 24 LOZ/1 BOX BUCCAL PRN (15:15)
--- NOTE | 2023-04-20 15:25 | Podiatry Consultation ---
Date of Consultation April 20, 2023 Assessment & Plan (1) Cellulitis of leg, right: (2) Tinea unguium: (3) Other specified peripheral vascular diseases: Plan Patient was examined and evaluated. We discussed at length etiology and treatment of his bilateral nail concerns. These diffusely Onikul gryphotic nails are likely the result of underlying fungal infection. It would be significantly harmful for him to attempt self debridement at this time, given their extreme length and thickness. We will debride these before he is discharged on this hospitalization, though generally perform nail debridements outpatient in folks with less complicated social situations. He would benefit from an ankle-brachial index or arterial ultrasound to establish a baseline of his vascular inflow. His pulses are nonpalpable and he does have this recent history of cellulitis as well. Once we debride these nails later this week, we will likely sign off from care for now. Thank you very much for the consultation, we look forward to helping this patient out long-term outpatient as well. History of Present Illness Reason for Consultation: Severe dystrophy of nails Attending Physician: Timbo Mcdonald History of Present Illness Patient seen at bedside. He was recently admitted to the hospital for treatment of right lower extremity cellulitis and has been doing well with wound care and antibiotics. He states that overall he is feeling better, though also has had a complicated social history, worsening since his admission. He states that his shortly after his admission here while she was in a rehabilitation or nursing facility. He is now distraught and unsure what he will do upon discharge, in regards to his home situation. We were requested to come see him for treatment of his nails as they have not been trimmed in many years. He is visually impaired and his had increasing difficulty in taking care of him as well. Because of this, he estimates he has not had them trimmed in several years. He states that they are exquisitely painful because of the thickening of the overall. He denies any short-term changes to them and denies any infection stemming from them with the right lower shortly cellulitis. A separate entity altogether. Further, now, he denies any worsening signs of infection states that overall the antibiotics have done well for him. He also denies any recent medical history change. Allergies Allergy/AdvReac Type Severity Reaction Status Date / Time No Known Allergies Allergy Verified 04/15/23 22:44 Home Medications Medication Instructions Recorded Confirmed Type vitamins A,C,S-vuyl-kutqqo 4,296 1 cap PO BID #60 caps 08/05/18 04/15/23 Rx mcg-226 mg-90 mg capsule (PreserVision AREDS) coenzyme Q10 100 mg capsule 100 mg PO DAILY 12/14/18 04/15/23 History magnesium oxide 400 mg (241.3 mg 400 mg PO QAM #30 tabs 09/19/20 04/15/23 Rx magnesium) tablet ferrous sulfate 325 mg (65 mg 325 mg PO DAILY #60 tabs 05/21/21 04/15/23 Rx iron) tablet (Feosol) pantoprazole 40 mg tablet,delayed 40 mg PO BID #180 tabs 06/26/22 04/15/23 Rx release rosuvastatin 5 mg tablet (Crestor) 5 mg PO DAILY #90 tabs 08/19/22 04/15/23 Rx amlodipine 5 mg tablet (Norvasc) 10 mg (2 x 5 mg) PO QAM #60 tabs 12/11/22 04/15/23 Rx metoprolol tartrate 25 mg tablet 25 mg PO BID #60 tabs 12/11/22 04/15/23 Rx hydralazine 50 mg tablet 50 mg PO TID #270 tabs 01/22/23 04/15/23 Rx lorazepam 0.5 mg tablet 0.25 mg PO HS PRN anxiety 04/15/23 04/15/23 History potassium chloride 40 mEq/15 mL 20 meq PO DAILY 04/15/23 04/15/23 History oral liquid Patient History Medical History Hypertension Gastric ulcer GI bleed History of CVA (cerebrovascular accident) Symptomatic anemia Paroxysmal A-fib Elevated CK Hyperglycemia Insomnia Hypothyroidism Hepatic steatosis Anxiety Alcohol abuse Hypertensive urgency Surgical History History of colonoscopy History of tonsillectomy History of cataract surgery Family History Mother , age 90 of uncertain causes. Anxiety Father , age 55 of pulmonary disease and alcoholism Lung disease Sister Kidney stone Denies family history of Ovarian cancer Prostate cancer Myocardial infarction Breast cancer Colorectal cancer Social History Smoking Status: Never smoker Tobacco Type: Cigarettes Age Started Using Tobacco: 20; Age Quit Using Tobacco: 60; Cigarettes Per Day: social smoker, off and on; Second Hand Exposure: No; Do You Dip or Chew Tobacco: No; Hx Alcohol Use: No Hx Substance Use: No Preferred Language: Fijian Communication Ability: Effective Visual Impairment: No Limitations Hearing Ability: Normal Auto 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 And 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 Mechanic Required: No Beliefs That Will Affect Care: Spiritual marital status: Current Living Situation: Alone Current Living Situation Comment: Lives alone with spouse who is WCB current occupational status: retired 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 Other Information That Helps Us Care for You: No Feels Safe at Home: Yes Safety Concerns: Feels Safe At This Time Childhood Exposure to Second-Hand Smoke: Yes Diet: regular Dental Care, Regularly: No Physical Activity Frequency: Does not Exercise Seatbelt Use: always Sunscreen Use: No Assistive Devices: Glasses Review of Systems Review of Systems: All systems reviewed & are unremarkable except as noted in HPI & below Constitutional: as per Subjective / HPI Eyes: as per Subjective / HPI Ear, Nose, Mouth, Throat: as per Subjective / HPI Respiratory: as per Subjective / HPI Cardiovascular: as per Subjective / HPI Genitourinary: + as per Subjective / HPI Musculoskeletal: as per Subjective / HPI Integumentary: as per Subjective / HPI Neurologic: as per Subjective / HPI Psychiatric: as per Subjective / HPI Endocrine: as per Subjective / HPI Hematologic / Lymphatic: as per Subjective / HPI Allergy / Immunological: as per Subjective / HPI Physical Exam 2 Physical Exam: Lower extremity focused exam: DP/PT pulses nonpalpable, advanced trophic changes are noted to the skin with diffuse thinning of the skin, diffuse thickening and dystrophy of the nails, dependent rubor, and cooling proximal to distal. CFT is brisk to the digits. No hair growth is noted to the digits. Muscle strength is diminished and equal bilaterally. Ankle joint range of motion is decreased diffusely as well. 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 No open lesions noted underlying them. No associated hyperkeratotic skin lesions or callus formation is appreciated. Any evidence of cellulitis is underneath a wound dressing applied earlier today, More proximally to the right lower extremity. This was left intact, as is being well controlled by the wound care team. Constitutional: WD/WN, vitals as above + ill appearing; no acute distress Eyes: PERRL, conjunctivae normal, anicteric sclerae ENMT: external ear and nose normal, oropharynx normal Neck: trachea midline, no thyromegaly normal visual inspection Respiratory: normal respiratory effort, lungs clear to auscultation normal respiratory effort; no respiratory distress Cardiovascular: RRR, no murmur, no edema Vessels: posterior tibial pulses present and dorsalis pedis pulses present Extremities: normal capillary refill Gastrointestinal (Abdomen): Inspection/Auscultation: + abdomen abnormal to inspection and abdomen not distended Musculoskeletal: no cyanosis or clubbing, extremities motor strength 5/5 Extremities: + abnormal strength (Diffuse age-related weakness is noted) Skin: no rashes, warm and dry + skin atrophy, + hair thinning and + nails dystrophic Neurologic: patellar DTR's 2+ bilat, sensation intact Psychiatric: A+Ox3, euthymic affect Mood: + depressed mood Results & Data Vital Signs (Past 12 Hours) Vital Signs Temp Pulse Pulse Resp BP BP Pulse Ox 04/20/23 14:32 61 144/59 H 04/20/23 07:30 36.5 C 60 18 157/82 H 92 O2 Del Method 04/20/23 14:32 04/20/23 07:30 Room Air
[2023-04-20] MEDS: LORazepam 0.5 MG TAB PO ONE (20:50)
--- NOTE | 2023-04-20 23:01 | Hospitalist Progress Note ---
Date of Service April 20, 2023 Assessment & Plan (1) Cellulitis of leg, right: Plan: -Venous duplex ultrasound of the right lower extremity negative for DVTs. -X-ray of the right lower extremity pending read. -Blood cultures collected and pending. -Will cover for Pseudomonas -Started on Zosyn. wound care consult -PT/OT ordered. -No anticoagulation given due to anticipation of short stay as explained below. Very complex situation. Patient's was recently placed in a [facility] home for large decubitus ulcer she overnight on the day prior to admission. The patient wants to go home however he has no home caregivers and reportedly according to his neighbor his home was in disrepair and unfit to live in. Patient is blind is ambulatory challenges and has a large ulceration on his leg which she cannot care for. Home nurses cannot supply wound care the patient cannot afford to have 24-hour care or in-house wound care and in the past has refused to have people come to his home. Tried calling Jamie but no answer. [facility] [place] [place] provider called and states he lives in [place] and is manage is strange and this gentleman for 20 years has not spoken to his father till today states that he will be willing to come to [place] to help assist in this patient's care but will not be an in-house caregiver for him. At this time we are using case management area association of aging to determine safe transition to living situation however this is not where the patient desires. Patient now agreeable to rehab but his ultimate goal is to go home or move in with his son. there is concern that his home is not fit to live Patient continues to improve. Tried consulting to trim the nails but this can only be done as an outpatient. (2) Anxiety: Plan: -Takes Ativan 0.25 at night as needed for sleep. -Required 2 mg of Ativan after admission due to anxiety from 's . (3) Hypothyroidism: Plan: -Chronic stable continue since (4) Hypertension: Plan: -Chronic stable continue Plan Challenging psychosocial situation will need case management to help to likely find emergency placement and also to help coordinate with his 's arrangements. Admission and Anticipated Discharge Date Admission Date: April 16, 2023 Subjective 87 yo m reports no new symptoms. Review of Systems Review of Systems: All systems reviewed & are unremarkable except as noted in HPI & below Physical Exam Physical Exam: pt is with cardiac murmur lungs are clear extremities are with edema, chronic venous stasis changes previous provider noted: large stage 2 decubitus ulcer right posterior lower leg poa currently with dry dressing. small red spots noted on left ankle Results & Data Results & Data Vital Signs (Past 12 Hours) Vital Signs Temp Pulse Pulse Resp BP BP Pulse Ox 04/20/23 20:38 36.9 C 65 16 159/60 H 94 04/20/23 19:25 04/20/23 16:12 36.9 C 85 18 161/62 H 95 04/20/23 14:32 61 144/59 H O2 Del Method 04/20/23 20:38 Room Air 04/20/23 19:25 Room Air 04/20/23 16:12 Room Air 04/20/23 14:32 PG Care Time/CCT Total # of Minutes Spent Total Time Spent with Patient: Total time spent is greater than 50% in coordination of care (as documented) at patient's floor/unit and/or counseling patient: Coding Level of Care Code 20840 SUB INP/OBS CARE 2/35MIN Diagnoses Cellulitis of leg, right L03.115 Anxiety F41.9 Hypothyroidism E03.9 Hypertension I10
[2023-04-20] MEDS: CHLORASEPTIC (PHENOL) 1.4% SOLN 180 ML BTL MT PRN (23:22)
[2023-04-21] MEDS: BENZONATATE 100 MG CAPSULE PO PRN (01:27)
[2023-04-21 06:02] LABS: Hematocrit (blood only) 32.5 % (42.0-52.0); Hemoglobin 11.2 g/dl (14.0-18.0); Mean Corpuscular Hemoglobin 31.3 pg (25.0-34.0); Mean Corpuscular Hgb Conc 34.5 g/dL (32.0-36.0); Mean Corpuscular Volume 90.8 fL (80.0-100.0); Mean Platelet Volume 9.8 fL (9.4-12.4); Platelet Count 207 K/uL (130-400); RDW Coefficient of Variation 15.5 % (11.5-14.5); RDW Standard Deviation 51.1 fL (36.4-46.3); Red Blood Count 3.58 M/uL (4.70-6.10)
[2023-04-21 06:13] LABS: BUN Creatinine Ratio 17.1 (10-20); C Reactive Protein 3.08 mg/dl (0-0.5); Calcium 8.9 mg/dl (8.6-10.3); Creatinine Clr Calc Pharmacy 45.9 ml/min; Est GFR (African American) 64.6 ml/min; Est GFR (Non-African American) 55.7 ml/min; Potassium 3.7 mmol/L (3.5-5.1)
--- NOTE | 2023-04-21 15:32 | Orthopedic Progress Note ---
Date of Service April 21, 2023 Assessment & Plan (1) Cellulitis of leg, right: (2) Tinea unguium: (3) Other specified peripheral vascular diseases: Plan Patient was examined and evaluated. - Nails 1 through 5 bilaterally sharply debrided with nail nippers at bedside without incident. - Follow-Up Palpation in 9 Weeks for Further Care for This. - Depending on where he ends up living, there are podiatrists on staff at most local [facility] or nursing homes, including rehabilitation facilities if necessary. - We'll sign off for now though do not hesitate to reconsult as needed if he develops any other foot and ankle concerns. Admission and Anticipated Discharge Date Admission Date: April 16, 2023 Subjective 87 yo m reports no new symptoms. Seen at bedside today for nail debridement. No new concerns or issues noted. Review of Systems Constitutional: as per Subjective / HPI Eyes: as per Subjective / HPI Ear, Nose, Mouth, Throat: as per Subjective / HPI Respiratory: as per Subjective / HPI Cardiovascular: as per Subjective / HPI Genitourinary: + as per Subjective / HPI Musculoskeletal: as per Subjective / HPI Integumentary: as per Subjective / HPI Neurologic: as per Subjective / HPI Psychiatric: as per Subjective / HPI Endocrine: as per Subjective / HPI Hematologic / Lymphatic: as per Subjective / HPI Allergy / Immunological: as per Subjective / HPI Physical Exam Physical Exam: Lower extremity focused exam: DP/PT pulses nonpalpable, advanced trophic changes are noted to the skin with diffuse thinning of the skin, diffuse thickening and dystrophy of the nails, dependent rubor, and cooling proximal to distal. CFT is brisk to the digits. No hair growth is noted to the digits. Muscle strength is diminished and equal bilaterally. Ankle joint range of motion is decreased diffusely as well. 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 No open lesions noted underlying them. No associated hyperkeratotic skin lesions or callus formation is appreciated. Any evidence of cellulitis is underneath a wound dressing applied earlier today, More proximally to the right lower extremity. This was left intact, as is being well controlled by the wound care team. Constitutional: WD/WN, vitals as above + ill appearing; no acute distress Eyes: PERRL, conjunctivae normal, anicteric sclerae ENMT: external ear and nose normal, oropharynx normal Neck: trachea midline, no thyromegaly normal visual inspection Respiratory: normal respiratory effort, lungs clear to auscultation normal respiratory effort; no respiratory distress Cardiovascular: RRR, no murmur, no edema Vessels: posterior tibial pulses present and dorsalis pedis pulses present Extremities: normal capillary refill Gastrointestinal (Abdomen): Inspection/Auscultation: + abdomen abnormal to inspection and abdomen not distended Musculoskeletal: no cyanosis or clubbing, extremities motor strength 5/5 Extremities: + abnormal strength (Diffuse age-related weakness is noted) Skin: no rashes, warm and dry + skin atrophy, + hair thinning and + nails dystrophic Neurologic: patellar DTR's 2+ bilat, sensation intact Psychiatric: A+Ox3, euthymic affect Mood: + depressed mood Results & Data Vital Signs (Past 12 Hours) Vital Signs Temp Pulse Pulse Resp BP BP Pulse Ox 04/21/23 15:23 37 C 69 16 163/62 H 94 04/21/23 14:26 64 154/70 H 04/21/23 10:19 04/21/23 07:12 36.7 C 78 18 163/66 H 95 O2 Del Method 04/21/23 15:23 Room Air 04/21/23 14:26 04/21/23 10:19 Room Air 04/21/23 07:12 Room Air
--- NOTE | 2023-04-21 17:51 | Hospitalist Progress Note ---
Date of Service April 21, 2023 Assessment & Plan (1) Cellulitis of leg, right: Plan: -Venous duplex ultrasound of the right lower extremity negative for DVTs. -X-ray of the right lower extremity pending read. -Blood cultures collected and pending. -Will cover for Pseudomonas -Started on Zosyn. wound care consult -PT/OT ordered. -No anticoagulation given due to anticipation of short stay as explained below. Very complex situation. Patient's was recently placed in a [facility] home for large decubitus ulcer she overnight on the day prior to admission. The patient wants to go home however he has no home caregivers and reportedly according to his neighbor his home was in disrepair and unfit to live in. Patient is blind is ambulatory challenges and has a large ulceration on his leg which she cannot care for. Home nurses cannot supply wound care the patient cannot afford to have 24-hour care or in-house wound care and in the past has refused to have people come to his home. [facility]ried calling [facility] but no answer[facility] and states he lives in [place] and is manage is strange and this gentleman for 20 years has not spoken to his father till today states that he will be willing to come to [place] to help assist in this patient's care but will not be an in-house caregiver for him. At this time we are using case management area association of aging to determine safe transition to living situation however this is not where the patient desires. Patient now agreeable to rehab but his ultimate goal is to go home or move in with his son. there is concern that his home is not fit to live Patient continues to improve. nails were trimmed. pics noted above. cotniue current antibiotics. will order biofire for new upper respiratory symptoms. ordered one time dose of afrin. (2) Anxiety: Plan: -Takes Ativan 0.25 at night as needed for sleep. -Required 2 mg of Ativan after admission due to anxiety from 's . (3) Hypothyroidism: Plan: -Chronic stable continue since (4) Hypertension: Plan: -Chronic stable continue Plan Challenging psychosocial situation will need case management to help to likely find emergency placement and also to help coordinate with his 's arrangements. Admission and Anticipated Discharge Date Admission Date: April 16, 2023 Subjective Patient reports a cough, post nasal drip symptoms. Review of Systems 2 Review of Systems: All systems reviewed & are unremarkable except as noted in HPI & below Physical Exam 2 Physical Exam: Constitutional: pt is with cardiac murmur lungs are clear extremities are with edema, chronic venous stasis changes previous provider noted: large stage 2 decubitus ulcer right posterior lower leg poa currently with dry dressing. small red spots noted on left ankle ( no change on exam) Results & Data Results & Data Vital Signs (Past 12 Hours) Vital Signs Temp Pulse Pulse Resp BP BP Pulse Ox 04/21/23 15:23 37 C 69 16 163/62 H 94 04/21/23 14:26 64 154/70 H 04/21/23 10:19 04/21/23 07:12 36.7 C 78 18 163/66 H 95 O2 Del Method 04/21/23 15:23 Room Air 04/21/23 14:26 04/21/23 10:19 Room Air 04/21/23 07:12 Room Air PG Care Time/CCT Total # of Minutes Spent Total Time Spent with Patient: Total time spent is greater than 50% in coordination of care (as documented) at patient's floor/unit and/or counseling patient: Coding Level of Care Code 66809 SUB INP/OBS CARE 3/50MIN Diagnoses Cellulitis of leg, right L03.115 Anxiety F41.9 Hypothyroidism E03.9 Hypertension I10 Time Spent (min) 50 Comment updated son
[2023-04-21] MEDS: OXYMETAZOLINE 0.05% 30 ML BTL NAE ONE (18:55)
[2023-04-21] MEDS: guaiFENesin 600 MG TABCR PO SCH (20:09)
[2023-04-22 09:41] LABS: Hematocrit (blood only) 31.1 % (42.0-52.0); Hemoglobin 10.7 g/dl (14.0-18.0); Mean Corpuscular Hemoglobin 31.3 pg (25.0-34.0); Mean Corpuscular Hgb Conc 34.4 g/dL (32.0-36.0); Mean Corpuscular Volume 90.9 fL (80.0-100.0); Mean Platelet Volume 9.4 fL (9.4-12.4); Platelet Count 177 K/uL (130-400); RDW Coefficient of Variation 15.6 % (11.5-14.5); RDW Standard Deviation 51.1 fL (36.4-46.3); Red Blood Count 3.42 M/uL (4.70-6.10); White Blood Count 5.53 K/ul (4.8-10.8)
[2023-04-22 09:43] LABS: BUN Creatinine Ratio 13.4 (10-20); C Reactive Protein 2.68 mg/dl (0-0.5); Calcium 8.6 mg/dl (8.6-10.3); Creatinine Clr Calc Pharmacy 45.2 ml/min; Est GFR (African American) 63.3 ml/min; Est GFR (Non-African American) 54.6 ml/min; Potassium 3.6 mmol/L (3.5-5.1)
--- NOTE | 2023-04-22 09:56 | Infectious Disease Consult ---
Date of Consultation April 22, 2023 Assessment & Plan (1) Cellulitis of leg, right: (2) Arthritis: Plan 87yo M with h/o hypothyroidism, prior gastric ulcer, CVA, afib, HTN who presented on 04/16 with RLE pain. He reported having RLE edema for years and over the past 2 years the RLE started becoming more swollen and weeping, which soaks through his socks. Over the past 2 weeks, his R leg became more painful. He denies fevers. Of note, his recently while he was in the ED. On admission, he has been afebrile, vital otherwise stable, on RA. WBC wnl, Cr 1.16, AST/ALT wnl. CRP 4.73>>3.08. RLE venous duplex negative for DVT. XR right tib/fib negative for bony destructive changes. He has been getting zosyn. RLE appears much improved compared to pictures from admission. XR also doesnt have any bone involvement. He is now on 7 days of therapy, which should be a dequate for cellulitis. There is still some redness though unclear if this is chronic changes his chronic edema or whether its residual cellulitis. He does say he has some leftover pain in the leg (?related to dressing changes). We can extend therapy for a total of 10 days with wound care. Patient seems hesitant to switch to PO antibiotics so we can keep on IV while he is inpatient. He doesnt seem to have risk factors for Pseudomonas, and has already received 7 days of pseudomonal coverage. Will de-escalate therapy to CTX, which can be changed to cefadroxil or amoxicillin when hes ready for discharge. # RLE cellulitis # h/o chronic RLE edema - Trish stopped zosyn and started CTX 1g IV daily since patient is hesitant to change to PO regimen - when hes ready for discharge, can change abx to either cefadroxil 500mg PO twice daily or amoxicillin 875mg PO twice daily - would treat for a total of 10 days starting from 04/15, no more than 14 days ID will discontinue active follow up at this time. Please do not hesitate to reconsult the Infectious Diseases service as needed. Ashley Davis MD [facility], Division of Infectious Diseases [facility]: [phone] Consultation Information Consultation was provided via telemedicine using two-way real-time interactive telecommunication between the patient and the telemedicine provider. For the duration of the visit, the provider was performing the assessment from a different facility than the patient. This includesuse of bluetooth stethoscope forauscultationperformed by the telepresenter that the telemedicine provider can hear if described in the physical exam. Fourchette Sewer contact information: Please call [facility] Call Center [phone]. (Phone Number For Physician Use Only) After establishing a telemedicine visit, patient was: Patient was verified with two unique identifiers, Patient/authorized rep acknowledged consent and understanding and Gave permission to continue telehealth session Time Spent with Patient: Initial => 75 min History of Present Illness Reason for Consultation: cellulitis lower legs Attending Physician: Timbo Mcdonald History of Present Illness 87yo M with h/o hypothyroidism, prior gastric ulcer, CVA, afib, HTN who presented on 04/16 with RLE pain. He reported having RLE edema for years and over the past 2 years the RLE started becoming more swollen and weeping, which soaks through his socks. Over the past 2 weeks, his R leg became more painful. He denies fevers. Of note, his recently while he was in the ED. On admission, he has been afebrile, vital otherwise stable, on RA. WBC wnl, Cr 1.16, AST/ALT wnl. CRP 4.73>>3.08. RLE venous duplex negative for DVT. XR right tib/fib negative for bony destructive changes. On evaluation, patient reports that the leg is much better than admission but still has some left over pain. He says the redness was more widespread but not really sure what it looked like before. He also notes some loose stools for the past 2 days. No back pain or new joint pains. Cipro 04/16 Zosyn 04/16- CTX 04/15-04/16 04/15 BCX: ngtd 04/16 MRSA screen: neg Allergies Allergy/AdvReac Type Severity Reaction Status Date / Time No Known Allergies Allergy Verified 04/15/23 22:44 Home Medications Medication Instructions Recorded Confirmed Type vitamins A,C,I-pjrn-qbytmu 4,296 1 cap PO BID #60 caps 08/05/18 04/15/23 Rx mcg-226 mg-90 mg capsule (PreserVision AREDS) coenzyme Q10 100 mg capsule 100 mg PO DAILY 12/14/18 04/15/23 History magnesium oxide 400 mg (241.3 mg 400 mg PO QAM #30 tabs 09/19/20 04/15/23 Rx magnesium) tablet ferrous sulfate 325 mg (65 mg 325 mg PO DAILY #60 tabs 05/21/21 04/15/23 Rx iron) tablet (Feosol) pantoprazole 40 mg tablet,delayed 40 mg PO BID #180 tabs 06/26/22 04/15/23 Rx release rosuvastatin 5 mg tablet (Crestor) 5 mg PO DAILY #90 tabs 08/19/22 04/15/23 Rx amlodipine 5 mg tablet (Norvasc) 10 mg (2 x 5 mg) PO QAM #60 tabs 12/11/22 04/15/23 Rx metoprolol tartrate 25 mg tablet 25 mg PO BID #60 tabs 12/11/22 04/15/23 Rx hydralazine 50 mg tablet 50 mg PO TID #270 tabs 01/22/23 04/15/23 Rx lorazepam 0.5 mg tablet 0.25 mg PO HS PRN anxiety 04/15/23 04/15/23 History potassium chloride 40 mEq/15 mL 20 meq PO DAILY 04/15/23 04/15/23 History oral liquid Patient History Medical History Hypertension Gastric ulcer GI bleed History of CVA (cerebrovascular accident) Symptomatic anemia Paroxysmal A-fib Elevated CK Hyperglycemia Insomnia Hypothyroidism Hepatic steatosis Anxiety Alcohol abuse Hypertensive urgency Surgical History History of colonoscopy History of tonsillectomy History of cataract surgery Family History Mother , age 90 of uncertain causes. Anxiety Father , age 55 of pulmonary disease and alcoholism Lung disease Sister Kidney stone Denies family history of Ovarian cancer Prostate cancer Myocardial infarction Breast cancer Colorectal cancer Social History Smoking Status: Never smoker Tobacco Type: Cigarettes Age Started Using Tobacco: 20; Age Quit Using Tobacco: 60; Cigarettes Per Day: social smoker, off and on; Second Hand Exposure: No; Do You Dip or Chew Tobacco: No; Hx Alcohol Use: No Hx Substance Use: No Preferred Language: Maori Communication Ability: Effective Visual Impairment: No Limitations Hearing Ability: Normal Codifier Required: No Beliefs That Will Affect Care: Spiritual marital status: Current Living Situation: Alone Current Living Situation Comment: Lives alone with spouse who is WCB current occupational status: retired current occupation: [place]ired [place] [employer] [place] Other Information That Helps Us Care for You: No Feels Safe at Home: Yes Safety Concerns: Feels Safe At This Time Childhood Exposure to Second-Hand Smoke: Yes Diet: regular Dental Care, Regularly: No Physical Activity Frequency: Does not Exercise Seatbelt Use: always Sunscreen Use: No Assistive Devices: Glasses Review of System 10-point review of systems reviewed and are negative except for as above. Physical Exam Physical Exam: General: Awake, alert, no acute distress HEENT: NC/AT, EOMI, mmm Neck: supple Lungs: respirations non-labored Heart: nl peripheral perfusion Abdomen: soft, NT/ND Ext: right leg without edema, with mild redness and an open wound Skin: as above Neuro: moving all extremities Results & Data Vital Signs (Past 12 Hours) Vital Signs Temp Pulse Resp BP Pulse Ox O2 Del Method 04/22/23 07:41 37.5 C 60 16 142/82 H 89 L Room Air Laboratory Results labs reviewed Diagnostic Findings imaging reviewed
[2023-04-22 11:25] LABS: Adenovirus PCR Not Detected (NotDetected); Bordetella parapertussis PCR Not Detected (NotDetected); Bordetella pertussis PCR Not Detected (NotDetected); Chlamydia pneumoniae PCR Not Detected (NotDetected); Coronavirus 229E PCR Not Detected (NotDetected); Coronavirus CoV-2 (COVID19)PCR Not Detected (NotDetected); Coronavirus HKU1 PCR Not Detected (NotDetected); Coronavirus NL63 PCR Not Detected (NotDetected); Coronavirus OC43PCR Not Detected (NotDetected); Human Metapneumovirus PCR Not Detected (NotDetected); Influenza A (H1 2009) PCR DETECTED (NotDetected); Influenza B PCR Not Detected (NotDetected); Mycoplasma pneumoniae PCR Not Detected (NotDetected); Parainfluenza Virus 1 PCR Not Detected (NotDetected); Parainfluenza Virus 2 PCR Not Detected (NotDetected); Parainfluenza Virus 3 PCR Not Detected (NotDetected); Parainfluenza Virus 4 PCR Not Detected (NotDetected); Respiratory Syncytial VirusPCR Not Detected (NotDetected); Rhinovirus/Enterovirus PCR Not Detected (NotDetected)
[2023-04-22] MEDS ORDERED: cefTRIAXone SODIUM 2,000 MG in DEXTROSE 5 % MINI-B 50 ML IV SCH (11:30)
[2023-04-22] MEDS: cefTRIAXone SODIUM 1,000 MG in DEXTROSE 5 % MINI-B 50 ML IV SCH (12:57)
[2023-04-22] MEDS: OSELTAMIVIR PHOSPHATE SUSP 30 MG/5 ML UDP PO SCH (14:30)
[2023-04-22] MEDS: KETOROLAC TROMETHAMINE 15 MG/ML VIAL IV ONE (22:57)
--- NOTE | 2023-04-22 23:37 | Communication Note ---
Was notified that patient had fever with T-max= 39.1. Upon chart review patient tested positive for Influenza A 04/22 and is on Day 1 of Tamiflu. Currently admitted for cellulitis of right leg. Completed 6 days of Zosyn and was transitioned to Ceftriaxone earlier today. Remains hemodynamically stable and oxygen requirement has been stable at 4L throughout the day today. Plan to get repeat blood/urine cultures, and CXR. Date of Service: April 22, 2023
--- NOTE | 2023-04-23 07:01 | Hospitalist Progress Note ---
Date of Service April 22, 2023 Assessment & Plan (1) Cellulitis of leg, right: Plan: -Venous duplex ultrasound of the right lower extremity negative for DVTs. -X-ray of the right lower extremity pending read. -Blood cultures collected and pending. -Will cover for Pseudomonas -Started on Zosyn. wound care consult -PT/OT ordered. -No anticoagulation given due to anticipation of short stay as explained below. Very complex situation. Patient's was recently placed in a [facility] home for large decubitus ulcer she overnight on the day prior to admission. The patient wants to go home however he has no home caregivers and reportedly according to his neighbor his home was in disrepair and unfit to live in. Patient is blind is ambulatory challenges and has a large ulceration on his leg which she cannot care for. Home nurses cannot supply wound care the patient cannot afford to have 24-hour care or in-house wound care and in the past has refused to have people come to his home. Tried calling [facility] but no answer. [facility] and states he lives in [place] and is manage is strange and this gentleman for 20 years has not spoken to his father till today states that he will be willing to come to [place] to help assist in this patient's care but will not be an in-house caregiver for him. At this time we are using case management area association of aging to determine safe transition to living situation however this is not where the patient desires. Patient now agreeable to rehab but his ultimate goal is to go home or move in with his son. there is concern that his home is not fit to live Patient continues to improve. . cotniue current antibiotics. biofire for new upper respiratory symptoms showed influenza A ordered tamiflu on 04/22. (2) Anxiety: Plan: -Takes Ativan 0.25 at night as needed for sleep. -Required 2 mg of Ativan after admission due to anxiety from 's . (3) Hypothyroidism: Plan: -Chronic stable continue since (4) Hypertension: Plan: -Chronic stable continue Plan Challenging psychosocial situation will need case management to help to likely find emergency placement and also to help coordinate with his 's arrangements. Admission and Anticipated Discharge Date Admission Date: April 16, 2023 Subjective Patient reports coughng, sputum production, SOB Review of Systems Review of Systems: All systems reviewed & are unremarkable except as noted in HPI & below Physical Exam Physical Exam: pt is with cardiac murmur lungs are clear extremities are with edema, chronic venous stasis changes previous provider noted: large stage 2 decubitus ulcer right posterior lower leg poa currently with dry dressing. small red spots noted on left ankle Results & Data Results & Data Vital Signs (Past 12 Hours) Vital Signs Temp Pulse Resp BP Pulse Ox O2 Del Method O2 Flow Rate 04/23/23 02: 36.7 C 04/22/23 23:24 37.7 C H 04/22/23 21:38 38.5 C H 94 Nasal Cannula 4 04/22/23 21:17 39.1 C H 81 20 175/71 H 93 Nasal Cannula 4.0 04/22/23 19:47 Nasal Cannula 4 PG Care Time/CCT Total # of Minutes Spent Total Time Spent with Patient: Total time spent is greater than 50% in coordination of care (as documented) at patient's floor/unit and/or counseling patient: Coding Level of Care Code 65860 SUB INP/OBS CARE 2/35MIN Diagnoses Cellulitis of leg, right L03.115 Anxiety F41.9 Hypothyroidism E03.9 Hypertension I10
--- NOTE | 2023-04-23 08:52 | XRay Report ---
SINGLE VIEW CHEST CLINICAL HISTORY: Fever FINDINGS: An AP, portable, upright chest radiograph is compared to study dated 12/01/2022. The examina tion is degraded by portable technique and patient rotation. The heart is enlarged noting atheroscle rotic calcification of the thoracic aorta. The pulmonary vasculature is noncongested. Chronic interst itial thickening is similar to previous. Airspace opacities are seen at the left lung base. No large pleural effusion or pneumothorax is seen. The skeletal structures are osteopenic. The bony thorax is grossly intact. IMPRESSION: 1. Cardiomegaly without radiographic evidence of congestive failure. 2. Left basilar opacities could represent atelectasis versus pneumonia/aspiration pneumonitis. Clinic al correlation will be required and radiographic follow-up to resolution is recommended. Any follow-u p should include both PA and lateral views for better evaluation of the lung bases. ACT 112: Negative or not required by law. Electronically signed by: Blade Willis M.D. 04/23/2023 8:51 AM
--- NOTE | 2023-04-23 10:06 | Hospitalist Progress Note ---
Date of Service April 23, 2023 Assessment & Plan (1) Influenza A: Plan: Patient was diagnosed for FLU A on 04/22 Patient on tamiflu Now requiring 2 liters nasal cannula. Patient had a fever overnight on 04/22 (2) Cellulitis of leg, right: Plan: -Venous duplex ultrasound of the right lower extremity negative for DVTs. -X-ray of the right lower extremity pending read. -Blood cultures collected and pending. -Will cover for Pseudomonas -Started on Zosyn. wound care consult -PT/OT ordered. -No anticoagulation given due to anticipation of short stay as explained below. Very complex situation. Patient's was recently placed in a assisted home for large decubitus ulcer she overnight on the day prior to admission. The patient wants to go home however he has no home caregivers and reportedly according to his neighbor his home was in disrepair and unfit to live in. Patient is blind is ambulatory challenges and has a large ulceration on his leg which she cannot care for. Home nurses cannot supply wound care the patient cannot afford to have 24-hour care or in-house wound care and in the past has refused to have people come to his home. Tried calling Jamie but no answer. [facility] provider called and states he lives in [place] and is manage is strange and this gentleman for 20 years has not spoken to his father till today states that he will be willing to come to [place] to help assist in this patient's care but will not be an in-house caregiver for him. At this time we are using case management area association of aging to determine safe transition to living situation however this is not where the patient desires. Patient now agreeable to rehab but his ultimate goal is to go home or move in with his son. there is concern that his home is not fit to live Patient continues to improve. . cotniue current antibiotics. biofire for new upper respiratory symptoms showed influenza A ordered tamiflu on 04/22. Updated son on 04/23 Ordered lexapro for depression on 04/23 (3) Anxiety: Plan: -Takes Ativan 0.25 at night as needed for sleep. -Required 2 mg of Ativan after admission due to anxiety from 's . (4) Hypothyroidism: Plan: -Chronic stable continue since (5) Hypertension: Plan: -Chronic stable continue Plan Challenging psychosocial situation will need case management to help to likely find emergency placement and also to help coordinate with his 's arrangements. Admission and Anticipated Discharge Date Admission Date: April 16, 2023 Subjective Patient is refusing meals and states to his nurse that he wants to . When I arrived to the room, patient is agreeable to improving his oral intake. But is undecided on what he wants to eat. Review of Systems Review of Systems: All systems reviewed & are unremarkable except as noted in HPI & below Physical Exam Physical Exam: pt is with cardiac murmur lungs are clear extremities are with edema, chronic venous stasis changes previous provider noted: large stage 2 decubitus ulcer right posterior lower leg poa currently with dry dressing. small red spots noted on left ankle Results & Data Results & Data Vital Signs (Past 12 Hours) Vital Signs Temp Pulse Resp BP Pulse Ox O2 Del Method O2 Flow Rate 04/23/23 07:20 37.2 C 64 14 171/68 H 92 Nasal Cannula 2 04/23/23 02:27 36.7 C 04/22/23 23:24 37.7 C H PG Care Time/CCT Total # of Minutes Spent Total Time Spent with Patient: Total time spent is greater than 50% in coordination of care (as documented) at patient's floor/unit and/or counseling patient: Coding Level of Care Code 18335 SUB INP/OBS CARE 2/35MIN Diagnoses Influenza A J10.1 Cellulitis of leg, right L03.115 Anxiety F41.9 Hypothyroidism E03.9 Hypertension I10
[2023-04-23] MEDS: BENZONATATE 100 MG CAPSULE PO PRN (21:55)
[2023-04-24 08:15] LABS: Hematocrit (blood only) 33.9 % (42.0-52.0); Hemoglobin 11.6 g/dl (14.0-18.0); Mean Corpuscular Hemoglobin 31.2 pg (25.0-34.0); Mean Corpuscular Hgb Conc 34.2 g/dL (32.0-36.0); Mean Corpuscular Volume 91.1 fL (80.0-100.0); Mean Platelet Volume 9.8 fL (9.4-12.4); Platelet Count 172 K/uL (130-400); RDW Coefficient of Variation 15.4 % (11.5-14.5); RDW Standard Deviation 50.9 fL (36.4-46.3); Red Blood Count 3.72 M/uL (4.70-6.10); White Blood Count 6.12 K/ul (4.8-10.8)
[2023-04-24 08:44] LABS: BUN Creatinine Ratio 16.4 (10-20); C Reactive Protein 3.76 mg/dl (0-0.5); Calcium 8.6 mg/dl (8.6-10.3); Creatinine Clr Calc Pharmacy 46.3 ml/min; Est GFR (African American) 65.3 ml/min; Est GFR (Non-African American) 56.3 ml/min; Potassium 3.7 mmol/L (3.5-5.1)
[2023-04-24] MEDS: ESCITALOPRAM OXALATE 10 MG TAB PO SCH (09:33)
--- NOTE | 2023-04-24 22:51 | Hospitalist Progress Note ---
Date of Service April 24, 2023 Assessment & Plan (1) Influenza A: Plan: Patient was diagnosed for FLU A on 04/22 Patient on tamiflu Has required intermittently 2 liters nasal cannula but has been mainly on room air for past 36 hours Patient had a fever overnight on 04/22 (2) Cellulitis of leg, right: Plan: -Venous duplex ultrasound of the right lower extremity negative for DVTs. -X-ray of the right lower extremity pending read. -Blood cultures collected and pending. -Will cover for Pseudomonas -Started on Zosyn. wound care consult -PT/OT ordered. -No anticoagulation given due to anticipation of short stay as explained below. Very complex situation. Patient's was recently placed in a halfway home for large decubitus ulcer she overnight on the day prior to ad mission. The patient wants to go home however he has no home caregivers and reportedly according to his neighbor his home was in disrepair and unfit to live in. Patient is blind is ambulatory challenges and has a large ulceration on his leg which she cannot care for. Home nurses cannot supply wound care the patient cannot afford to have 24-hour care or in-house wound care and in the past has re fused to have people come to his home. Son Jamie lives in [place], and they have not spoken to this gentleman for 20 years. States that he will be willing to come to [place] to help assist in this patient's care but will not be an in-house caregiver for him. At this time we are using case management area association of aging to determine safe transition to living situation however this is not where the patient desires. Patient now agreeable to rehab but his ultimate goal is to go home or move in with his son. there is concern that his home is not fit to live Patient continues to improve. . cotniue current antibiotics. biofire for new upper respiratory symptoms showed influenza A ordered tamiflu on 04/22. Updated son on (3) Anxiety: Plan: -Takes Ativan 0.25 at night as needed for sleep. -Required 2 mg of Ativan after admission due to anxiety from 's . Ordered lexapro for depression on 04/23 consulted psychiatry on (4) Hypothyroidism: Plan: -Chronic stable continue since (5) Hypertension: Plan: -Chronic stable continue Plan Challenging psychosocial situation will need case management to help to likely find emergency placement and also to help coordinate with his 's arrangements. Admission and Anticipated Discharge Date Admission Date: April 16, 2023 Subjective Patient states he is going to from the flu. He was also concerned about updating his son, dennis he is agreeable, he would like to be updated whenever his son is called. He also wants his code status changed to DNR Review of Systems Review of Systems: All systems reviewed & are unremarkable except as noted in HPI & below Physical Exam Physical Exam: pt is with cardiac murmur lungs are clear extremities are with edema, chronic venous stasis changes currently with dry dressing. Results & Data Results & Data Vital Signs (Past 12 Hours) Vital Signs Temp Pulse Resp BP Pulse Ox O2 Del Method 04/24/23 19:45 36.9 C 63 18 177/61 H 91 Room Air 04/24/23 14:44 36.8 C 51 L 14 148/69 H 90 Room Air PG Care Time/CCT Total # of Minutes Spent Total Time Spent with Patient: Total time spent is greater than 50% in coordination of care (as documented) at patient's floor/unit and/or counseling patient: Coding Level of Care Code 92976 SUB INP/OBS CARE 2/35MIN Diagnoses Influenza A J10.1 Cellulitis of leg, right L03.115 Anxiety F41.9 Hypothyroidism E03.9 Hypertension I10
[2023-04-25] MEDS: METOPROLOL TARTRATE 25 MG TAB PO SCH (09:02)
--- NOTE | 2023-04-25 17:40 | Hospitalist Progress Note ---
Date of Service April 25, 2023 Assessment & Plan (1) Influenza A: Plan: Patient was diagnosed for FLU A on 04/22 Patient on tamiflu (2) Cellulitis of leg, right: Plan: -Venous duplex ultrasound of the right lower extremity negative for DVTs. -X-ray of the right lower extremity pending read. -Blood cultures collected and pending. -Will cover for Pseudomonas -Started on Zosyn. complete one week course wound care consult following legs -PT/OT ordered- pt has been refusing evaluation . - Very complex situation. Patient's was recently placed in a [facility] home for large decubitus ulcer she overnight on the day prior to admission. The patient wants to go home however he has no home caregivers and reportedly according to his neighbor his home was in disrepair and unfit to live in. Patient is blind is ambulatory challenges and has a large ulceration on his leg which she cannot care for. Home nurses cannot supply wound care the patient cannot afford to have 24-hour care or in-house wound care and in the past has refused to have people come to his home. Son Jamie lives in [place], and they have not spoken to this gentleman for 20 years. States that he will be willing to come to [place] to help assist in this patient's care but will not be an in-house caregiver for him. At this time we are using case management area association of aging to determine safe transition to living situation however this is not where the patient desires. Patient now agreeable to rehab but his ultimate goal is to go home or move in with his son. there is concern that his home is not fit to live Patient continues to improve. ordered tamiflu on 04/22. Updated son on (3) Anxiety: Plan: -Takes Ativan 0.25 at night as needed for sleep. -Required 2 mg of Ativan after admission due to anxiety from 's . Ordered lexapro for depression on 04/23 consulted psychiatry on (4) Hypothyroidism: Plan: -Chronic stable continue since (5) Hypertension: Plan: -Chronic stable continue Plan Challenging psychosocial situation will need case management to help to likely find emergency placement and also to help coordinate with his 's arrangements. Admission and Anticipated Discharge Date Admission Date: April 16, 2023 Subjective pt is still stuck on his disposition, not wanting to be placed for subacute rehab but not having any local caregivers here to help him he has a cough that is non productive currently from his pneumonia Physical Exam Physical Exam: lungs have some scant loss of breath sounds legs have healing wounds on RLE lower legs have improved edema Results & Data Results & Data Vital Signs (Past 12 Hours) Vital Signs Temp Pulse Pulse Resp BP Pulse Ox O2 Del Method 04/25/23 15:56 90 Room Air 04/25/23 15:53 97.9 F 63 18 159/57 H 88 L Room Air 04/25/23 09:05 50 L 137/58 L 04/25/23 07:45 98.1 F 46 L 17 129/49 L 92 Room Air 04/25/23 07:30 Room Air PG Care Time/CCT Total # of Minutes Spent Total Time Spent with Patient: Total time spent is greater than 50% in coordination of care (as documented) at patient's floor/unit and/or counseling patient: Coding Level of Care Code 98612 SUB INP/OBS CARE 2/35MIN Diagnoses Influenza A J10.1 Cellulitis of leg, right L03.115 Anxiety F41.9 Hypothyroidism E03.9 Hypertension I10
--- NOTE | 2023-04-25 21:21 | Communication Note ---
Date of Service: April 25, 2023 Was notified by nursing that patient had an O2 saturation of 83% on room air and the patient was refusing supplemental oxygen. Patient is admitted for influenza and cellulitis. I went to bedside and talked with the patient about the importance of wearing oxygen. Patient was tearful at times, discussed how he recently lost his and patient also made several comments suggesting he wanted to . At the end of encounter, patient was receiving his evening medications including Ativan which he states helps him to calm down. I was later notified that Mr. Arriaga was wearing 3L NC and his oxygen saturation was improved.
--- NOTE | 2023-04-26 17:08 | Hospitalist Progress Note ---
Date of Service April 26, 2023 Assessment & Plan (1) Influenza A: Plan: Patient was diagnosed for FLU A on 04/22 Patient on tamiflu LD 04/27/23 (2) Cellulitis of leg, right: Plan: -Venous duplex ultrasound of the right lower extremity negative for DVTs. -X-ray of the right lower extremity pending read. -Blood cultures negative -Will cover for Pseudomonas -Started on Zosyn. completed one week course wound care consult following legs great improvement -PT/OT ordered- pt has been refusing evaluation . - Very complex situation. Patient's was recently [facility] in a [facility] home for large decubitus ulcer she overnight on the day prior to admission. The patient wants to go home however he has no home caregivers and reportedly according to his neighbor his home was in disrepair and unfit to live in. Patient is with limited visual acuity, has ambulatory challenges and has a large ulceration on his leg which she cannot care for. Home nurses cannot supply wound care the patient cannot afford to have 24-hour care or in-house wound care and in the past has refused to have people come to his home. Son Jamie lives in [place], and they have not spoken to this gentleman for 20 years. States that he will be willing to come to [place] to help assist in this patient's care but will not be an in-house caregiver for him. At this time we are using case management area association of aging to determine safe transition to living situation however this is not where the patient desires. PT will not participate inPT/Ot to allow eval for subacute rehab Patient continues to improve will finish tamiflu 04/26, remains on ceftriaxone for cellulitis LD 04/28 Updated son on (3) Anxiety: Plan: -Takes Ativan 0.25 at night as needed for sleep. -Required 2 mg of Ativan after admission due to anxiety from 's . Ordered lexapro for depression on 04/23, dose to increase 04/26 consulted psychiatry on (4) Hypothyroidism: Plan: -Chronic stable continue since (5) Hypertension: Plan: -Chronic stable continue Plan Challenging psychosocial situation will need case management to help to likely find emergency placement and also to help coordinate with his 's arrangements. Admission and Anticipated Discharge Date Admission Date: April 16, 2023 Subjective pt is still stuck on his disposition, not wanting to be placed for subacute rehab but not having any local caregivers here to help him not wanting personal care limits what he wants to do by asking granular questions he has a cough that is non productive currently from his pneumonia Physical Exam Physical Exam: lungs have some scant loss of breath sounds legs have healing wounds on RLE lower legs have improved edema Results & Data Results & Data Vital Signs (Past 12 Hours) Vital Signs Temp Pulse Resp BP Pulse Ox O2 Del Method O2 Flow Rate 04/26/23 14:48 98.8 F 66 18 172/65 H 90 Room Air 04/26/23 08:15 Room Air 04/26/23 08:15 58 L 04/26/23 07:16 92 Nasal Cannula 2 04/26/23 07:15 97.9 F 60 16 153/63 H 88 L Room Air PG Care Time/CCT Total # of Minutes Spent Total Time Spent with Patient: Total time spent is greater than 50% in coordination of care (as documented) at patient's floor/unit and/or counseling patient: Coding Level of Care Code 26330 SUB INP/OBS CARE 2/35MIN Diagnoses Influenza A J10.1 Cellulitis of leg, right L03.115 Anxiety F41.9 Hypothyroidism E03.9 Hypertension I10
[2023-04-27 08:03] LABS: Hematocrit (blood only) 33.3 % (42.0-52.0); Hemoglobin 11.3 g/dl (14.0-18.0); Mean Corpuscular Hemoglobin 30.6 pg (25.0-34.0); Mean Corpuscular Hgb Conc 33.9 g/dL (32.0-36.0); Mean Corpuscular Volume 90.2 fL (80.0-100.0); Platelet Count 205 K/uL (130-400); RDW Coefficient of Variation 15.2 % (11.5-14.5); Red Blood Count 3.69 M/uL (4.70-6.10); White Blood Count 3.59 K/ul (4.8-10.8)
[2023-04-27 08:11] LABS: Albumin Globulin Ratio 1.2 (0.9-2); Albumin Level 3.5 gm/dl (3.4-5.0); BUN Creatinine Ratio 14.1 (10-20); Bilirubin,Total 0.5 mg/dl (0.2-1.0); Calcium 8.5 mg/dl (8.6-10.3); Creatinine Clr Calc Pharmacy 58.4 ml/min; Est GFR (African American) 86.4 ml/min; Est GFR (Non-African American) 74.5 ml/min; Globulin 2.9 gm/dl (2.5-4.0); Potassium 4.2 mmol/L (3.5-5.1); Total Protein 6.4 gm/dl (6.0-8.3)
[2023-04-27] MEDS: ESCITALOPRAM OXALATE 10 MG TAB PO SCH (10:13)
--- NOTE | 2023-04-27 16:10 | Hospitalist Progress Note ---
Date of Service April 27, 2023 Assessment & Plan (1) Influenza A: Plan: Patient was diagnosed for FLU A on 04/22 Patient on tamiflu LD 04/27/23 (2) Cellulitis of leg, right: Plan: -Venous duplex ultrasound of the right lower extremity negative for DVTs. -X-ray of the right lower extremity pending read. -Blood cultures negative -Will cover for Pseudomonas -Started on Zosyn. completed one week course wound care consult following legs great improvement -PT/OT ordered- pt has been refusing evaluation . - Very complex situation. Patient's was recently [facility] in [facility] for large decubitus ulcer she overnight on the day prior to admission. The patient wants to go home however he has no home caregivers and reportedly according to his neighbor his home was in disrepair and unfit to live in. Patient is with limited visual acuity, has ambulatory challenges and has a large ulceration on his leg which she cannot care for. Home nurses cannot supply wound care the patient cannot afford to have 24-hour care or in-house wound care and in the past has refused to have people come to his home. Son Jamie lives in [place], and they have not spoken to this gentleman for 20 years. States that he will be willing to come to [place] to help assist in this patient's care but will not be an in-house caregiver for him. At this time we are using case management area association of aging to determine safe transition to living situation however this is not where the patient desires. PT will not participate inPT/Ot to allow eval for subacute rehab Patient continues to improve will finish tamiflu 04/26, remains on ceftriaxone for cellulitis LD 04/28 Updated son on (3) Anxiety: Plan: -Takes Ativan 0.25 at night as needed for sleep. -Required 2 mg of Ativan after admission due to anxiety from 's . Ordered lexapro for depression on 04/23, dose to increase 04/26 consulted psychiatry on (4) Hypothyroidism: Plan: -Chronic stable continue since (5) Hypertension: Plan: -Chronic stable continue Plan Challenging psychosocial situation will need case management to help to likely find emergency placement and also to help coordinate with his 's arrangements. Admission and Anticipated Discharge Date Admission Date: April 16, 2023 Subjective pt is still stuck on his disposition, not wanting to be placed for subacute rehab but not having any local caregivers here to help him not wanting personal care limits what he wants to do by asking granular questions son Jamie updated 04/27/23 he has a cough that is non productive currently from his pneumonia Physical Exam Physical Exam: lungs have some scant loss of breath sounds legs have healing wounds on RLE lower legs have improved edema Results & Data Results & Data Vital Signs (Past 12 Hours) Vital Signs Temp Pulse Resp BP Pulse Ox O2 Del Method 04/27/23 14:32 97.9 F 71 16 147/55 H 90 Room Air 04/27/23 07:35 97.9 F 56 L 16 156/69 H 88 L Room Air Laboratory Results review cbc review chemistry PG Care Time/CCT Total # of Minutes Spent Total Time Spent with Patient: Total time spent is greater than 50% in coordination of care (as documented) at patient's floor/unit and/or counseling patient: Coding Level of Care Code 33088 SUB INP/OBS CARE 2/35MIN Diagnoses Influenza A J10.1 Cellulitis of leg, right L03.115 Anxiety F41.9 Hypothyroidism E03.9 Hypertension I10
[2023-04-28] MEDS: ENOXAPARIN INJ 40 MG/0.4 ML SYR SQ SCH (08:12)
--- NOTE | 2023-04-28 11:17 | XRay Report ---
SINGLE VIEW CHEST CLINICAL HISTORY: Hypoxia. FINDINGS: 2 AP, portable, upright chest radiographs are compared to study dated 04/22/2023. The examin ation is degraded by portable technique and patient rotation. The heart is mildly enlarged noting at herosclerotic calcification of the thoracic aorta. The pulmonary vasculature is noncongested. Chronic interstitial thickening is similar to previous. There is bibasilar scarring/atelectasis. The lungs a nd pleural spaces are otherwise clear. No pneumothorax is seen. The skeletal structures are osteopeni c. The bony thorax is grossly intact. IMPRESSION: Cardiomegaly with no acute cardiopulmonary abnormality identified. ACT 112: Negative or not required by law. Electronically signed by: Blade Willis M.D. 04/28/2023 11:16 AM
--- NOTE | 2023-04-28 18:24 | Hospitalist Progress Note ---
Date of Service April 28, 2023 Assessment & Plan (1) Influenza A: Plan: Patient was diagnosed for FLU A on 04/22, now off isolation Patient on tamiflu LD 04/27/23 (2) Cellulitis of leg, right: Plan: -Venous duplex ultrasound of the right lower extremity negative for DVTs. -X-ray of the right lower extremity pending read. -Blood cultures negative -Will cover for Pseudomonas -Started on Zosyn. completed one week course wound care consult following legs great improvement -PT/OT ordered- pt has been refusing evaluation . - Very complex situation. Patient's was recently [facility] in a [facility] for large decubitus ulcer she overnight on the day prior to admission. The patient wants to go home however he has no home caregivers and reportedly according to his neighbor his home was in disrepair and unfit to live in. Patient is with limited visual acuity, has ambulatory challenges and has a large ulceration on his leg which she cannot care for. Maik Ayala lives in [place], and they have not spoken to this gentleman for 20 years. States that he will be willing to come to [place] to help assist in this patient's care Local youth care worker Ne Bentley, says she may be albe to help with some oversight locally, [facility] does feel he is competent to make decisions and does not feel he is a danger to self PT will not participate inPT/Ot to allow eval for subacute rehab Patient continues to improve remains on ceftriaxone for cellulitis LD 04/28 (3) Anxiety: Plan: -Takes Ativan 0.25 at night as needed for sleep. -Required 2 mg of Ativan after admission due to anxiety from 's . Ordered lexapro for depression on 04/23, dose to increase 04/26 consulted psychiatry on (4) Hypothyroidism: Plan: -Chronic stable continue since (5) Hypertension: Plan: -Chronic stable continue Plan Challenging psychosocial situation Pt may need to leave AMA Admission and Anticipated Discharge Date Admission Date: April 16, 2023 Subjective pt is still stuck on his disposition, not wanting to be placed for subacute rehab but not having any local caregivers here to help him not wanting personal care limits what he wants to do by asking granular questions maik Ayala updated 04/27/23 called Ne Díaz, a local contact, she often shops for him and can have some local oversight he has a cough that is non productive currently from his pneumonia Physical Exam Physical Exam: lungs have some scant loss of breath sounds legs have healing wounds on RLE lower legs have improved edema Results & Data Results & Data Vital Signs (Past 12 Hours) Vital Signs Temp Pulse Resp BP Pulse Ox O2 Del Method 04/28/23 15:26 98.4 F 66 16 158/56 H 92 Room Air 04/28/23 10:29 Room Air 04/28/23 07:34 98.1 F 53 L 16 150/61 H 92 Room Air PG Care Time/CCT Total # of Minutes Spent Total Time Spent with Patient: Total time spent is greater than 50% in coordination of care (as documented) at patient's floor/unit and/or counseling patient: Coding Level of Care Code 91005 SUB INP/OBS CARE 2/35MIN Diagnoses Influenza A J10.1 Cellulitis of leg, right L03.115 Anxiety F41.9 Hypothyroidism E03.9 Hypertension I10
[2023-04-29] MEDS: amLODIPine BESYLATE 5 MG TAB PO SCH (08:37)
--- NOTE | 2023-04-29 16:32 | Hospitalist Progress Note ---
Date of Service April 29, 2023 Assessment & Plan (1) Influenza A: Plan: Patient was diagnosed for FLU A on 04/22, now off isolation Patient on tamiflu LD 04/27/23 review cxr 04/27 no acute disease (2) Cellulitis of leg, right: Plan: -Venous duplex ultrasound of the right lower extremity negative for DVTs. -X-ray of the right lower extremity pending read. -Blood cultures negative -Will cover for Pseudomonas -Started on Zosyn. completed one week course wound care consult following legs great improvement -PT/OT ordered- pt has been refusing evaluation . - Very complex situation. Patient's was recently placed in a half-way home for large decubitus ulcer she overnight on the day prior to admission. The patient wants to go home however he has no home caregivers and reportedly according to his neighbor his home was in disrepair and unfit to live in. Patient is with limited visual acuity, has ambulatory challenges and has a large ulceration on his leg which she cannot care for. Son Jamie lives in [place], and they have not spoken to this gentleman for 20 years. States that he will be willing to come to [place] to help assist in this patient's care Local critical care transport nurse Ne Bentley, says she may be albe to help with some oversight locally, Behavioral health does feel he is competent to make decisions and does not feel he is a danger to self PT will not participate inPT/Ot to allow eval for subacute rehab Patient continues to improve remains on ceftriaxone for cellulitis LD 04/28 plans to dc Against medical advice on 04/30, pt educated in front of nursing that there are concerns he cannot take care of himself medically, psychiatry has stated that they do not feel he has a plan to do self harm (3) Anxiety: Plan: -Takes Ativan 0.25 at night as needed for sleep. -Required 2 mg of Ativan after admission due to anxiety from 's . Ordered lexapro for depression on 04/23, dose to increase 04/26 consulted psychiatry on (4) Hypothyroidism: Plan: -Chronic stable continue since (5) Hypertension: Plan: -Chronic stable continue Plan Challenging psychosocial situation Pt may need to leave AMA Admission and Anticipated Discharge Date Admission Date: April 16, 2023 Subjective pt is still stuck on his disposition, not wanting to be placed for subacute rehab but not having any local caregivers here to help him not wanting personal care son Jamie updated 04/27/23 called Ne Díaz, a local contact, she often shops for him and can have some local oversight, given that he does have some local help, not optimal help tho, and not lacking capacity according to psyche, will have pt discharged AMA on 04/30, given I do not feel home is a good plan for the patient, he agrees to sign ama Physical Exam Physical Exam: lungs have some scant loss of breath sounds legs have healing wounds on RLE lower legs have improved edema Results & Data Results & Data Vital Signs (Past 12 Hours) Vital Signs Temp Pulse Resp BP Pulse Ox O2 Del Method 04/29/23 15:27 97.9 F 57 L 18 164/55 H 94 Room Air 04/29/23 07:47 Room Air 04/29/23 06:42 97.9 F 55 L 16 152/65 H 93 Room Air Laboratory Results review cxr 04/27 no active disease PG Care Time/CCT Total # of Minutes Spent Total Time Spent with Patient: Total time spent is greater than 50% in coordination of care (as documented) at patient's floor/unit and/or counseling patient: Coding Level of Care Code 01286 SUB INP/OBS CARE 2/35MIN Diagnoses Influenza A J10.1 Cellulitis of leg, right L03.115 Anxiety F41.9 Hypothyroidism E03.9 Hypertension I10
[2023-04-29] MEDS: BENZONATATE 100 MG CAPSULE PO PRN (20:49)
--- NOTE | 2023-04-30 15:57 | Hospitalist Progress Note ---
Date of Service April 30, 2023 Assessment & Plan (1) Influenza A: Plan: Patient was diagnosed for FLU A on 04/22, now off isolation Patient on tamiflu LD 04/27/23 review cxr 04/27 no acute disease (2) Cellulitis of leg, right: Plan: -Venous duplex ultrasound of the right lower extremity negative for DVTs. -X-ray of the right lower extremity pending read. -Blood cultures negative -Started on Zosyn. completed one week course wound care consult following legs great improvement -PT/OT ordered- pt has been refusing evaluation . - Very complex situation. Patient's [facility] dec[facility] she overnight on the day prior to admission. The patient wants to go home however he has no home caregivers and reportedly according to his neighbor his home was in disrepair and unfit to live in. Patient is with limited visual acuity, has ambulatory challenges and has a large ulceration on his leg which she cannot care for. Son Jamie lives in [place], and they have not spoken to this gentleman for 20 years. States that he will be willing to come to [place] to help assist in this patient's care Local manager managed care Ne Bentley, says she may be albe to help with some oversight locally, Behavioral health does feel he is competent to make decisions and does not feel he is a danger to self PT will not participate inPT/Ot to allow eval for subacute rehab Patient continues to improve remains on ceftriaxone for cellulitis LD 04/28 plans to dc Against medical advice on 04/30, pt educated in front of nursing that there are concerns he cannot take care of himself medically, psychiatry has stated that they do not feel he has a plan to do self harm (3) Anxiety: Plan: -Takes Ativan 0.25 at night as needed for sleep. -Required 2 mg of Ativan after admission due to anxiety from 's . Ordered lexapro for depression on 04/23, dose to increase 04/26 consulted psychiatry on (4) Hypothyroidism: Plan: -Chronic stable continue since (5) Hypertension: Plan: -Chronic stable continue Plan Challenging psychosocial situation Pt may need to leave AMA Admission and Anticipated Discharge Date Admission Date: April 16, 2023 Subjective pt is still stuck on his disposition, not wanting to be placed for subacute rehab but not having any local caregivers here to help him not wanting personal care son Jamie updated 04/27/23 called Ne Díaz, a local contact, she often shops for him and can have some local oversight, given that he does have some local help, not optimal help tho, and not lacking capacity according to psyche, will have pt discharged AMA on 04/30, given I do not feel home is a good plan for the patient, he agrees to sign ama Physical Exam 2 Physical Exam: legs eval look improved Results & Data Results & Data Vital Signs (Past 12 Hours) Vital Signs Temp Pulse Resp BP Pulse Ox O2 Del Method 04/30/23 15:03 98.6 F 59 L 18 152/63 H 93 Room Air 04/30/23 07:38 Room Air 04/30/23 07:12 98.2 F 55 L 16 163/60 H 92 Room Air PG Care Time/CCT Total # of Minutes Spent Total Time Spent with Patient: Total time spent is greater than 50% in coordination of care (as documented) at patient's floor/unit and/or counseling patient: Coding Level of Care Code 84111 SUB INP/OBS CARE 2/35MIN Diagnoses Influenza A J10.1 Cellulitis of leg, right L03.115 Anxiety F41.9 Hypothyroidism E03.9 Hypertension I10
[2023-04-30] MEDS: HYDROCODONE/ACETAMOPHEN 5/325MG TAB PO ONE (20:15)
[2023-05-01] MEDS: HYDROCODONE/ACETAMOPHEN 5/325MG TAB PO ONE (00:23)
[2023-05-01 07:57] LABS: Creatinine Clr Calc Pharmacy 61.1 ml/min; Est GFR (African American) 89.5 ml/min; Est GFR (Non-African American) 77.2 ml/min
[2023-05-01] MEDS: EUCERIN CR 120 GM JAR EXT SCH (11:44)
--- NOTE | 2023-05-01 16:33 | Discharge Summary ---
Date of Service May 01, 2023 Admission HPI Per Admitting Provider Patient is a 87yo male with history of HTN, Hypothyroidism and prior gastric ulcer presenting with right lower extremity cellulitis. Patient has had right lower extremity edema for years. States that over the past 2 weeks the right leg started to have more swelling and weeping. States that the weeping would soak through his socks. He also states over the past 2 weeks his right leg has become painful. He denies any fevers or chills at this time. Patient is very distraught after coming to the hospital and finding out that his had . He is reluctant to give a full HPI and wants to return home to be with his family. Principal Diagnosis lower extremity cellulitis chronic venous stasis dermatitis grief reaction Discharge Exam pt is improved, legs are healed, now with chronic changes Discharge Data Allergies Allergy/AdvReac Type Severity Reaction Status Date / Time No Known Allergies Allergy Verified 04/15/23 22:44 Consultations 04/16/23 00:49 ED Decision to Admit Stat 04/19/23 16:23 Consult Podiatry Routine 04/21/23 16:58 Consult Infectious Diseases Routine 04/24/23 18:11 Consult Behavioral Health Liaison Routine Ordered Studies 04/15/23 22:29 US venous doppler LE RT Stat Hospital Course (1) Influenza A: Patient was diagnosed for FLU A on 04/22, now off isolation Patient on tamiflu LD 04/27/23-completed course review cxr 04/27 no acute disease (2) Cellulitis of leg, right: -Venous duplex ultrasound of the right lower extremity negative for DVTs. -X-ray of the right lower extremity pending read. -Blood cultures negative -Started on Zosyn. completed one week course wound care consult following legs great improvement -PT/OT ordered- pt has been refusing evaluation . - Very complex situation. Patient's was recently placed in a [facility] home for large decubitus ulcer she overnight on the day prior to admission. The patient wants to go home however he has no home caregivers and reportedly according to his neighbor his home was in disrepair and unfit to live in. Patient is with limited visual acuity, has ambulatory challenges Son Jamie lives in [place], and they have not spoken to this gentleman for 20 years. States that he will be willing to come to [place] to help assist in this patient's care Local family member caretaker Ne Bentley, says she may be albe to help with some oversight locally, Behavioral health does feel he is competent to make decisions and does not feel he is a danger to self PT will not participate in PT/Ot to allow eval for subacute rehab Patient continues to improve remains on ceftriaxone for cellulitis LD 04/28 dc Against medical advice on 04/30, pt educated in front of nursing that there are concerns he cannot take care of himself medically, psychiatry has stated that they do not feel he has a plan to do self harm (3) Anxiety: due to anxiety from 's . Ordered lexapro for depression on 04/23, dose to increase 04/26 consulted psychiatry on ,no intervention (4) Hypothyroidism: -Chronic stable continue since (5) Hypertension: -Chronic stable continue Plan Challenging psychosocial situation leave AMA Total Time Total Time Spent Total Time Spent (In Minutes): It required greater than 30 minutes to prepare this patient for discharge. Discharge Plan Discharge Items Patient Disposition: Against Medical Advice Reason For Visit: R LE CELLULITIS Condition on Discharge: Good Activity: Resume your previous activity Non-emergency contact: Primary Care Provider Follow-up/Referrals: Pro,Nicolas Weaver MD [Primary Care Provider] - Pending Studies at Discharge: No Stand-Alone Forms: My [facility] [employer], Smoking Cessation Medications and DC Order Prescriptions: New escitalopram oxalate 10 mg Tablet 10 mg PO QAM Qty: 30 0RF doxycycline hyclate 100 mg capsule 100 mg PO BID 5 Days Qty: 10 0RF Continued PreserVision AREDS [id number] pejl-sh-votn capsule 1 cap PO BID Qty: 60 0RF pantoprazole 40 mg tablet,delayed release (DR/EC) 40 mg PO BID Qty: 180 3RF magnesium oxide 400 mg (241.3 mg magnesium) Tablet 400 mg PO QAM Qty: 30 0RF Rx Instructions: Anio-gpm-ukpdouw lorazepam 0.5 mg tablet 0.25 mg PO HS PRN (Reason: anxiety) Rx Instructions: Take 1/2 tablet at bed time as needed. Changed amlodipine [Norvasc] 5 mg Tablet 5 mg PO QAM Qty: 30 5RF metoprolol tartrate 25 mg Tablet 12.5 mg PO BID Qty: 30 5RF Discontinued rosuvastatin [Crestor] 5 mg tablet 5 mg PO DAILY Qty: 90 3RF hydralazine 50 mg tablet 50 mg PO TID Qty: 270 3RF coenzyme Q10 100 mg capsule 100 mg PO DAILY ferrous sulfate [Feosol] 325 mg (65 mg iron) tablet 325 mg PO DAILY Qty: 60 0RF potassium chloride 40 mEq/15 mL liquid 20 meq PO DAILY Rx Instructions: Per Dr. Haile patient to take 20 meq once daily (instead of discontinue) ordered on 12/12/22 due to seeking clarification on this medication. Discharge Orders: Discharge Order (Routine); Ordered 05/01/23 Ordered By: Jorge Lovelace Left Against Medical Advice (Routine); Ordered 05/01/23 Ordered By: Jorge Lovelace Krames/Other Patient Handouts: COVID 19 Flu Differences, Cellulitis Dc Admission Data Admit Date/Time: 04/16/23 15:31 Attending Provider: Jorge Lovelace Admit Provider: Jorge Lovelace Primary Care Provider: Nicolas Foreman Other Providers: Prasad Carrington; Maureen Nuñez; Paige Montes De Oca; Yasmin Turner; Yesenia Valdovinos; Ashley Davis; Jody Diaz; Ne Tomlin; Donna Silva; Roderick Russell; [place] [facility] Coding Level of Care Code 47862 INP/OBS DISCH >30 MIN Diagnoses Influenza A J10.1 Cellulitis of leg, right L03.115 Anxiety F41.9 Hypothyroidism E03.9 Hypertension I10
== END 2023-05-01 14:00 | disposition left against medical advice (07) | DRG 603 ==
LOC: ED 21:30 → EDINP 21:30 → SUATTDRO 04-16 01:54 → 3N 04-16 03:16 → SUATTDRO 04-16 15:31

== ENCOUNTER 2023-11-22 14:41 | Inpatient (IN) ==
--- OUTSIDE RECORDS SUMMARY | 2023-11-22 14:47 | External Medical Summary ---
Author Name UNSPECIFIED Address Unknown Organization [facility] History of Encounters Reason for Assessment: Discharge from [facility] Inpatient Facility where the patient been admitted: No inpatient facility admission Discharge Disposition: Patient remained in the community (with formal assistive services) Functional Assessment Bowel Incontinence Frequency: Very rarel y or never has bowel incontinence Cognitive Functioning: Requires promptin g (cueing, repetition, reminders) only under stressful or unfamiliar conditions. When Confused (Reported or Observed): In new or complex situations only Cognitive and Behavioral and Psychiatric Symptoms: None Current Ability: Bathing: Able to bathe in shower or tub with the intermittent assistance of another person: (a) for intermittent supervision or encouragement or reminders, OR (b) to get in and out of the shower or tub, OR (c) for washing difficult to reach areas. Current: Management Of Oral Medications: Able to take medication(s) at the correct times if: (a) individual dosages are prepared in advance by another person; OR (b) another person develops a drug diary or chart
[2023-11-22] MEDS: DROPERIDOL 5 MG/2 ML VIAL ONE (14:55)
[2023-11-22 15:05] LABS: iSTAT Creatinine 1.2 mg/dl (0.6-1.3); iSTAT Hemoglobin 15.3 g/dl (14.0-18.0); iSTAT Ionized Calcium 1.09 mmol/l (1.12-1.32); iSTAT Potassium 3.5 mmol/L (3.3-5.0)
[2023-11-22] MEDS: OPTIRAY 320 125ml IV ONE (15:28)
[2023-11-22 15:32] LABS: Basophils % (auto) 0.6 %; Eosinophils # (auto) 0.14 K/uL (0.00-0.50); Eosinophils % (auto) 0.8 %; Hematocrit (blood only) 42.7 % (42.0-52.0); Hemoglobin 14.9 g/dl (14.0-18.0); Immature Granulocytes % (auto) 1.7 %; Lymphocytes # (auto) 1.15 K/uL (1.20-3.40); Lymphocytes % (auto) 6.5 %; Mean Corpuscular Hemoglobin 32.7 pg (25.0-34.0); Mean Corpuscular Hgb Conc 34.9 g/dL (32.0-36.0); Mean Corpuscular Volume 93.8 fL (80.0-100.0); Mean Platelet Volume 9.4 fL (9.4-12.4); Monocytes # (auto) 1.25 K/uL (0.11-0.59); Monocytes % (auto) 7.1 %; Neutrophils # (auto) 14.72 K/uL (1.40-6.50); Neutrophils % (auto) 83.3 %; Platelet Count 231 K/uL (130-400); RDW Coefficient of Variation 14.8 % (11.5-14.5); RDW Standard Deviation 50.6 fL (36.4-46.3); Red Blood Count 4.55 M/uL (4.70-6.10); White Blood Count 17.66 K/ul (4.8-10.8)
[2023-11-22 15:38] LABS: INR 1.1 (0.9-1.1); Partial Thromboplastin Time 26 Seconds (21-31); Prothrombin Time 11.6 Seconds (9.0-12.0)
[2023-11-22] MEDS: DROPERIDOL 5 MG/2 ML VIAL IV STA (15:56)
--- NOTE | 2023-11-22 15:56 | CT Scan Report ---
UNENHANCED CT OF THE BRAIN; CT ANGIOGRAM OF THE BRAIN; CT ANGIOGRAM OF THE NECK CLINICAL HISTORY: Change in metal status. Fall. COMPARISON STUDY: CT angiogram of the head and neck dated 09/12/2020. TECHNIQUE: Unenhanced axial CT scan of the brain is performed. Subsequently, following the IV adminis tration of 119 of [address] [address], CT angiogram of the head and neck was performed from the aortic arch t o the vertex. Images are reviewed in the axial, sagittal, and coronal planes. 3-D MIPS images are cre ated and assessed. IV contrast was administered without complication. All measurements were calculate d based on NASCET criteria. A dose lowering technique was utilized adhering to the principles of ALA RA. The examinations are compromised by motion artifact. 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 There is no evidence of hemorrhage, mass effect, or acute territorial ischemia noting a motion compromises examination. There is no evidence of enhancing mass lesion on the angiogr am phase images. The ventricles, sulci, and cisterns are prominent secondary to involutional change. Hernandez-white matter differentiation is preserved. No extra-axial fluid collection is seen. Thoracic aorta: There is atherosclerotic calcification of the thoracic aorta. Imaged portions of the thoracic aorta are normal in caliber. The aortic arch demonstrates bovine variant anatomy. Right carotid arterial system: The right common carotid artery is widely patent, as is the right exte rnal carotid artery. There is advanced atherosclerotic plaque in the carotid bulb. This causes less t acosta 50% stenosis of the origin of the right internal carotid artery. The mid and distal portions of t he right internal carotid artery are patent. Left carotid arterial system: The left common carotid artery is widely patent. 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 This extends approximately 1.5 cm in length and there is only trace flow. There is reconstitution of flow at the level of C3. The mid and distal portions of the internal carotid artery are patent to the skull base. There is at least mild stenosis of the origin of the left external carotid artery which is patent. Vertebral arteries: The vertebral arteries are patent bilaterally noting left-sided dominance. Subclavian arteries: Widely patent bilaterally. Intracranial vasculature: There is atherosclerotic calcification of the cavernous carotid and vertebr al arteries. The internal carotid arteries are patent at the skull base, as are the anterior and midd le cerebral arteries bilaterally. The left A1 segment is diminutive. The vertebrobasilar system and p osterior cerebral arteries are widely patent. The left vertebral artery is dominant. There is mild-to -moderate stenosis of the supraclinoid internal carotid arteries, left side greater than right. No an eurysm or focal vessel cut off is seen throughout the intracranial circulation. Jugular veins: Patent bilaterally. Dural sinuses: Patent. Lung apices: Partially visualized upper lobe lung parenchyma appears clear. Soft tissues: The visualized pharyngeal soft tissues are normal in appearance noting angiographic pha se technique. The oropharyngeal airway appears widely patent. The salivary and thyroid glands are nor mal in appearance. No cervical lymphadenopathy is seen. Skeletal structures: The skeletal structures are osteopenic. The calvarium appears intact. The cervic al spine is maintaining noting advanced multilevel spondylosis. Orbits: The bony orbits are intact. Orbital contents are normal as visualized noting bilateral ocular lens implants. Sinuses and mastoids: The paranasal sinuses are clear. The mastoid air cells are well pneumatized. IMPRESSION: 1. There is no evidence of hemorrhage, mass effect, or acute territorial ischemia noting a motion com promised examination. 2. 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 3. Otherwise unremarkable CT angiogram of the brain. 4. 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 There is likely a trace trace flow, and this has modestly worsened from the 09/12/2020 examinati on. The mid-distal portion of the vessel are patent. 5. Atherosclerotic plaque causes less than 50% stenosis at the origin of the right internal carotid a rtery. ACT 112: Negative or not required by law. Electronically signed by: Blade Willis M.D. 11/22/2023 3:53 PM
[2023-11-22 16:01] LABS: Albumin Globulin Ratio 1.3 (0.9-2); Albumin Level 4.1 gm/dl (3.4-5.0); BUN Creatinine Ratio 13.1 (10-20); Bilirubin,Total 0.8 mg/dl (0.2-1.0); Calcium 9.1 mg/dl (8.6-10.3); Est GFR (Non-African American) 52.6 ml/min; Globulin 3.1 gm/dl (2.5-4.0); Potassium 3.5 mmol/L (3.5-5.1); Total Protein 7.2 gm/dl (6.0-8.3)
[2023-11-22 16:05] LABS: Appearance Urine Clear (Clear); Bacteria Urine Automated None Seen (None Seen); Bilirubin Urine Negative (Negative); Blood Urine 2+ (Negative); Cast Urine Automated 0-2 /lpf (0-2); Color Urine Yellow; Epithelial Cell Urine Auto 0-2 /hpf (0-2); Glucose Urine UA Negative (Negative); Ketones Urine Negative (Negative); Leukocyte Esterase Urine Negative (Negative); Nitrite Urine Negative (Negative); Protein Urine 1+ (Negative); Specific Gravity Urine 1.016 (1.000-1.030); Urobilinogen Urine Negative (Negative); WBC Urine Automated 0-5 /hpf (0-5)
[2023-11-22] MEDS: SODIUM CHLORIDE 0.9% 1,000 ML IV ONE (16:23)
[2023-11-22] MEDS: LORazepam 2 MG/1 ML VIAL IV STA (16:43)
[2023-11-22] MEDS: OPTIRAY 320 100ml IV ONE (16:51)
--- NOTE | 2023-11-22 17:00 | Emergency Department Note ---
Impression & Plan Altered mental status, Elevated troponin, Elevated lactic acid level, Garbled speech, Acute confusion ED Provider Note NAME: ANA RUIZ AGE: 88 SEX: M : 1935 ARRIVES VIA: Ambulance INFORMANT: Patient, ED PROVIDER(S): Nadia Clemente MD CHIEF COMPLAINT: Confusion HPI: This is a an 88-year-old male presenting for confusion. Patient was reported last known well yesterday at 4 PM. This was when he was seen by a home health worker. Today he was found on the ground by his home health nurse with a abrasion of the back of his head with hematoma. He able to move all extremities but cannot tell me any history. He does have garbled speech. ROS: Unable to obtain PHYSICAL EXAMINATION: General: Resting, kyphotic, follows some commands Head: Normocephalic and atraumatic Eyes: Normal inspection, Ear, nose, throat: Normal external exam Neck: Normal range of motion Respiratory: lungs clear to auscultation bilaterally Cardiovascular: Regular rate/rhythm, no murmur GI: soft, nontender, no guarding or rebound Extremities: nontender, moves all extremities Neuro: Awake, not alert, follows some commands, moves all extremities spontaneously, responds to pain in all extremities, tracking with eyes, garbled speech Skin: Warm, dry, and intact MEDICAL DECISION MAKING: This is an 88-year-old male presenting for confusion. Last known normal yesterday at 4 PM. Patient moving all extremities spontaneously without a clear strokelike process. However will do CT of the head with CTA head and neck to rule out process. He is not a TNKase candidate. Otherwise consider sepsis. Higher concern for concern for intracranial hemorrhage as patient has a clear mechanism of trauma with hematoma to the back of the head. -Patient given fluid for resuscitation -Patient was having episodes of coughing concern for fluid overload, will hold on aggressive fluid management for sepsis -Blood does reveal leukocytosis of 17.66. Otherwise anion gap of 15. Electrolytes within normal limits. Troponin elevated at 590 up and lactic acid of 6.3 -Troponin is elevated but patient complains of no chest pain and his EKG does not show clear STEMI criteria. 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 Mid/distal portion of the vessel are patent. -After discussion with hospitalist, recommend CT ab/pelvis and discussion with neurostroke for further recommendations -CT abdomen/pelvis reveals cardiomegaly without infectious/mild chronic findings. Advanced atherosclerotic changes seen throughout the abdominal aorta -Dr. Cummings consulted, stroke neurology at . Recommends aspirin, no heparin. He will see the patient in consultation and write her notes. -Patient care discussed with Dr. barger, who sent the patient to his service. -Patient states remained tachycardic but is improving after fluid resuscitation Differential diagnosis: Stroke, intracranial hemorrhage, pneumonia, ER treatment provided: See below Independent History obtained from: Nurse aide Diagnostics interpreted by me: ECG: ECG independently interpreted by me with atrial fibrillation with RVR, rate of 116, normal QRS, normal QTc, no ST segment elevations consistent with STEMI criteria, nonspecific ST segment abnormalities Cardiac Monitoring: An order was placed for continuous cardiac monitoring. The monitor shows a rate of 106 with sinus rhythm. Laboratory studies: As stated above and show below. Imaging studies: See below. Critical Care Note: I have personally spent 45 minutes of critical care time in the direct management of this patient. This includes bedside care, interpretation of diagnostic studies, and testing, discussion with consultants, patient, and family members, and other required patient management activities. This 45 minutes is in excess of all separately billable procedures. Past Med/Surg History Problem List (Updated 11/23/23 @ 20:13 by Nadia Clemente MD) Acute confusion (Acute) Garbled speech (Acute) Elevated lactic acid level (Acute) Elevated troponin (Acute) Altered mental status (Acute) Murmur, cardiac Paroxysmal A-fib H/O alcohol dependence Afib H/O: GI bleed Carotid stenosis NSTEMI (non-ST elevated myocardial infarction) Sepsis Hypertension Metabolic encephalopathy Acute kidney injury Acute hyponatremia (Acute) Dark stools (Acute) Weakness (Acute) Dark stools Hyponatremia Low vitamin B12 level Anemia Hypothyroidism GI bleed Symptomatic anemia Hypomagnesemia (Acute) Falls Vertebral artery stenosis Hypokalemia Bradycardia Contusion of multiple sites (Acute) Hyperbilirubinemia (Acute) Hepatic steatosis Arthritis (Acute) Irritable bowel syndrome (Acute) Macular degeneration (Acute) Mitral regurgitation (Acute) Stenosis of left carotid artery greater than 50% (Acute) Medical History Influenza A Tinea unguium Cellulitis of leg, right Gastric ulcer GI bleed History of CVA (cerebrovascular accident) Paroxysmal A-fib Elevated CK Hyperglycemia Insomnia Hypothyroidism Anxiety Alcohol abuse Hypertensive urgency Surgical History History of colonoscopy History of tonsillectomy History of cataract surgery Family History Mother , age 90 of uncertain causes. Anxiety Father , age 55 of pulmonary disease and alcoholism Lung disease Sister Kidney stone Denies family history of Ovarian cancer Prostate cancer Myocardial infarction Breast cancer Colorectal cancer Social History Smoking Status: Unknown if ever smoked Tobacco Type: Cigarettes Age Started Using Tobacco: 20; Age Quit Using Tobacco: 60; Cigarettes Per Day: social smoker, off and on; Second Hand Exposure: No; Do You Dip or Chew Tobacco: No; Hx Alcohol Use: No Hx Substance Use: No Preferred Language: Colombian Communication Ability: Impaired Visual Impairment: No Limitations Hearing Ability: Normal 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: No Beliefs That Will Affect Care: None marital status: Current Living Situation: Alone Current Living Situation Comment: Lives alone with spouse who is WCB current occupational status: retired 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 Other Information That Helps Us Care for You: No Feels Safe at Home: Declines to Answer Childhood Exposure to Second-Hand Smoke: Yes Diet: regular Dental Care, Regularly: No Physical Activity Frequency: Does not Exercise Seatbelt Use: always Sunscreen Use: No Assistive Devices: Glasses Allergies Allergies Allergy/AdvReac Type Severity Reaction Status Date / Time No Known Allergies Allergy Verified 11/22/23 17:05 Home Meds Home Medications Medication Instructions Recorded Confirmed No Known Home Medications 11/22/23 11/22/23 Results & Data (ED) Vital Signs Vital Signs - 24 hr 11/22/23 14:46 11/22/23 14:46 11/22/23 14:57 Temperature 36.9 C Temperature Source Oral Pulse Rate 130 H Pulse Rate from SpO2 Sensor 124 H Respiratory Rate 20 Blood Pressure 168/83 H 145/112 H Blood Pressure Mean 111 123 Pulse Oximetry 92 96 Oxygen Delivery Method Room Air Room Air Sepsis Recent Fever Within 48 Hours No Sepsis New/Unexplained Change in Mental Status Yes Sepsis Action Taken by Nursing Physician Notified 11/22/23 15:27 11/22/23 16:01 Temperature Temperature Source Pulse Rate 124 H Pulse Rate from SpO2 Sensor 118 H Respiratory Rate Blood Pressure 160/129 H Blood Pressure Mean 139 Pulse Oximetry 93 Oxygen Delivery Method Sepsis Recent Fever Within 48 Hours Sepsis New/Unexplained Change in Mental Status Sepsis Action Taken by Nursing Laboratory Data 11/23/23 05:46 11/23/23 05:46 Lab Results 11/22/23 11/22/23 11/22/23 Range/Units 14:50 14:52 14:57 WBC 17.66 H (4.8-10.8) K/ul RBC 4.55 L (4.70-6.10) M/uL Hgb 14.9 (14.0-18.0) g/dl POC Hgb 15.3 (14.0-18.0) g/dl Hct 42.7 (42.0-52.0) % POC Hct 45 (42-52) % MCV 93.8 (80.0-100.0) fL MCH 32.7 (25.0-34.0) pg MCHC 34.9 (32.0-36.0) g/dL RDW Std Deviation 50.6 H (36.4-46.3) fL RDW Coeff of Randall 14.8 H (11.5-14.5) % Plt Count 231 (130-400) K/uL MPV 9.4 (9.4-12.4) fL Immature Gran % (Auto) 1.7 % Neut % (Auto) 83.3 % Lymph % (Auto) 6.5 % [place] % (Auto) 7.1 % Eos % (Auto) 0.8 % Baso % (Auto) 0.6 % Neut # (Auto) 14.72 H (1.40-6.50) K/uL Lymph # (Auto) 1.15 L (1.20-3.40) K/uL [place] # (Auto) 1.25 H (0.11-0.59) K/uL Eos # (Auto) 0.14 (0.00-0.50) K/uL Baso # (Auto) 0.10 (0.00-0.20) K/uL Immature Gran # (Auto) 0.30 H (0.01-0.20) K/uL PT 11.6 (9.0-12.0) Seconds INR 1.1 (0.9-1.1) APTT 26 (21-31) Seconds PTT Ratio 1.0 POC Sodium 138 (135-144) mmol/L Sodium 137 (136-145) mmol/L POC Potassium 3.5 (3.3-5.0) mmol/L Potassium 3.5 (3.5-5.1) mmol/L POC Chloride 102 (101-112) mmol/L Chloride 100 (98-107) mmol/L Carbon Dioxide 22 (21-32) mmol/L POC Total CO2 20 L (24-31) mmol/L Anion Gap 15 H (3-11) POC Anion Gap 21.0 (16-25) mmol/L POC BUN 15 (7-18) mg/dl BUN 16 (6-23) mg/dl Creatinine 1.22 (0.6-1.4) mg/dl POC Creatinine 1.2 (0.6-1.3) mg/dl Est Cr Clr Drug Dosing 38.0 ml/min Est GFR ( Amer) 61.0 ml/min Est GFR (Non-Af Amer) 52.6 ml/min BUN/Creatinine Ratio 13.1 (10-20) Glucose 180 H (70-99(Fasting)) mg/dl POC Glucose (other) 178 H (70-99) mg/dl Lactate 6.3 H* (0.4-2.0) mmol/L Calcium 9.1 (8.6-10.3) mg/dl POC Ioniz Calcium Iktty 1.09 L (1.12-1.32) mmol/l Magnesium 2.0 (1.7-2.4) mg/dl Total Bilirubin 0.8 (0.2-1.0) mg/dl AST 20 (13-39) U/L ALT 16 (7-52) U/L Alkaline Phosphatase 94 (34-104) U/L Total Creatine Kinase 220 (30-223) U/L Troponin I High Sens 171.0 H* (0-20) pg/ml Total Protein 7.2 (6.0-8.3) gm/dl Albumin 4.1 (3.4-5.0) gm/dl Globulin 3.1 (2.5-4.0) gm/dl Albumin/Globulin Ratio 1.3 (0.9-2) Procalcitonin 0.03 (0-0.5) ng/ml 11/22/23 11/22/23 Range/Units 17:35 20:05 WBC (4.8-10.8) K/ul RBC (4.70-6.10) M/uL Hgb (14.0-18.0) g/dl POC Hgb (14.0-18.0) g/dl Hct (42.0-52.0) % POC Hct (42-52) % MCV (80.0-100.0) fL MCH (25.0-34.0) pg MCHC (32.0-36.0) g/dL RDW Std Deviation (36.4-46.3) fL RDW Coeff of Randall (11.5-14.5) % Plt Count (130-400) K/uL MPV (9.4-12.4) fL Immature Gran % (Auto) % Neut % (Auto) % Lymph % (Auto) % [place] % (Auto) % Eos % (Auto) % Baso % (Auto) % Neut # (Auto) (1.40-6.50) K/uL Lymph # (Auto) (1.20-3.40) K/uL [place] # (Auto) (0.11-0.59) K/uL Eos # (Auto) (0.00-0.50) K/uL Baso # (Auto) (0.00-0.20) K/uL Immature Gran # (Auto) (0.01-0.20) K/uL PT (9.0-12.0) Seconds INR (0.9-1.1) APTT (21-31) Seconds PTT Ratio POC Sodium (135-144) mmol/L Sodium (136-145) mmol/L POC Potassium (3.3-5.0) mmol/L Potassium (3.5-5.1) mmol/L POC Chloride (101-112) mmol/L Chloride (98-107) mmol/L Carbon Dioxide (21-32) mmol/L POC Total CO2 (24-31) mmol/L Anion Gap (3-11) POC Anion Gap (16-25) mmol/L POC BUN (7-18) mg/dl BUN (6-23) mg/dl Creatinine (0.6-1.4) mg/dl POC Creatinine (0.6-1.3) mg/dl Est Cr Clr Drug Dosing ml/min Est GFR ( Amer) ml/min Est GFR (Non-Af Amer) ml/min BUN/Creatinine Ratio (10-20) Glucose (70-99(Fasting)) mg/dl POC Glucose (other) (70-99) mg/dl Lactate 3.0 H* (0.4-2.0) mmol/L Calcium (8.6-10.3) mg/dl POC Ioniz Calcium Kitty (1.12-1.32) mmol/l Magnesium (1.7-2.4) mg/dl Total Bilirubin (0.2-1.0) mg/dl AST (13-39) U/L ALT (7-52) U/L Alkaline Phosphatase (34-104) U/L Total Creatine Kinase (30-223) U/L Troponin I High Sens 590.1 H* D (0-20) pg/ml Total Protein (6.0-8.3) gm/dl Albumin (3.4-5.0) gm/dl Globulin (2.5-4.0) gm/dl Albumin/Globulin Ratio (0.9-2) Procalcitonin (0-0.5) ng/ml Administered Medications Amlodipine Besylate (Amlodipine Besylate 5 Mg Tab) 5 mg PO QAM [facility] Stop: 12/23/23 13:44 Last Admin: 11/23/23 14:50 Dose: 5 mg Documented By: SHANIQUE Lactated Ringer's (Lr) 1,000 mls @ 75 mls/hr IV .[id number] LEONIDES Stop: 12/22/23 20:59 Last Admin: 11/23/23 17:35 Dose: 75 mls/hr Documented By: Infusion: 11/23/23 17:03 Dose: Infused Documented By: Admin: 11/23/23 07:03 Dose: 100 mls/hr Documented By: Infusion: 11/23/23 07:03 Dose: Infused Documented By: MLTigre Infusion: 11/23/23 00:34 Dose: 100 mls/hr Documented By: Admin: 11/22/23 20:17 Dose: 80 mls/hr Documented By: KAMERON Piperacillin Sod/Tazobactam Sod (Zosyn) 4.5 gm in 100 mls @ 25 mls/hr IV Q8H [facility] Stop: 11/25/23 01:59 Last Admin: 11/23/23 17:36 Dose: 25 mls/hr Documented By: Infusion: 11/23/23 17:35 Dose: Infused Documented By: Admin: 11/23/23 11:21 Dose: 25 mls/hr Documented By: Infusion: 11/23/23 05:06 Dose: Infused Documented By: Admin: 11/23/23 01:13 Dose: 25 mls/hr Documented By: DIPTI Vancomycin HCl 1,000 mg/ (Sodium Chloride) 270 mls @ 200 mls/hr IV Q24H [facility] Stop: 11/30/23 08:59 Last Infusion: 11/23/23 11:39 Dose: Infused Documented By: Admin: 11/23/23 09:41 Dose: 200 mls/hr Documented By: SHANIQUE Thiamine HCl 100 mg/ Syringe 10 mls @ 2 mls/min IV QAM [facility] Stop: 12/23/23 08:59 Last Admin: 11/23/23 09:43 Dose: 2 mls/min Documented By: SHANIQUE Folic Acid 1 mg/ Syringe 10 mls @ 5 mls/min IV QAM [facility] Stop: 12/23/23 08:59 Last Admin: 11/23/23 09:43 Dose: 5 mls/min Documented By: SHANIQUE Heparin Sodium/Dextrose (Heparin Sodium/Dextrose) 25,000 units in 500 mls @ 18 mls/hr IV .Q24H [facility]; Protocol Stop: 12/23/23 13:14 Last Admin: 11/23/23 14:49 Dose: 900 units/hr, 18 mls/hr Documented By: SHANIQUE Co-signed By: JASVIR Lorazepam (Lorazepam 2 Mg/1 Ml Vial) 1 mg IV ONCE PRN PRN Reason: MRI BRAIN Stop: 12/23/23 14:06 Last Admin: 11/23/23 16:07 Dose: 1 mg Documented By: SHANIQUE Discontinued Medications Aspirin (Aspirin 300 Mg Supp) 300 mg VA ONE ONE Stop: 11/23/23 10:33 Last Admin: 11/23/23 10:57 Dose: 300 mg Documented By: SHANIQUE Carvedilol (Carvedilol 3.125 Mg Tab) 3.125 mg PO NOW ONE Stop: 11/23/23 17:27 Last Admin: 11/23/23 18:07 Dose: Not Given Documented By: SHANIQUE Droperidol (Droperidol 5 Mg/2 Ml Vial) Confirm Administered Dose 5 mg .ROUTE .STK-MED ONE Stop: 11/22/23 14:47 Last Admin: 11/22/23 14:55 Dose: 2.5 mg Documented By: KAITLIN Droperidol (Droperidol 5 Mg/2 Ml Vial) 1.25 mg IV ONE STA Stop: 11/22/23 15:56 Last Admin: 11/22/23 15:56 Dose: 1.25 mg Documented By: KAITLIN Gadobutrol (Gadobutrol 65ml Vial) 8 ml IV ONCE ONE Stop: 11/23/23 17:04 Last Admin: 11/23/23 17:04 Dose: 8 ml Documented By: JULIO CESAR Haloperidol Lactate (Haloperidol Lactate 5 Mg/Ml 1 Ml Vial) 2.5 mg IM NOW STA Stop: 11/22/23 22:03 Last Admin: 11/22/23 22:17 Dose: 2.5 mg Documented By: KAMERON Sodium Chloride (Nss) 1,000 mls @ 999 mls/hr IV .Q1H1M ONE Stop: 11/22/23 17:23 Last Infusion: 11/22/23 18:57 Dose: Infused Documented By: Admin: 11/22/23 16:23 Dose: 999 mls/hr Documented By: DULCE Lactated Ringer's (Lr) 1,000 mls @ 999 mls/hr IV .Q1H1M ONE Stop: 11/22/23 21:02 Last Infusion: 11/22/23 21:25 Dose: Infused Documented By: Admin: 11/22/23 20:14 Dose: 999 mls/hr Documented By: KAMERON Piperacillin Sod/Tazobactam Sod (Zosyn) 4.5 gm in 100 mls @ 200 mls/hr IV NOW ONE Stop: 11/22/23 20:44 Last Infusion: 11/22/23 21:00 Dose: 0 mls/hr Documented By: Admin: 11/22/23 20:51 Dose: 200 mls/hr Documented By: KAMERON Vancomycin HCl 1,250 mg/ (Sodium Chloride) 525 mls @ 200 mls/hr IV NOW ONE Stop: 11/22/23 23:52 Last Infusion: 11/23/23 01:08 Dose: Infused Documented By: Admin: 11/22/23 21:25 Dose: 200 mls/hr Documented By: KAMERON Thiamine HCl 300 mg/ Sodium (Chloride) 53 mls @ 210 mls/hr IV ONE ONE Stop: 11/22/23 23:34 Last Infusion: 11/23/23 00:03 Dose: Infused Documented By: Admin: 11/22/23 23:47 Dose: 210 mls/hr Documented By: DIPTI Pantoprazole Sodium 40 mg/ (Syringe) 10 mls @ 5 mls/min IV DAILY@1100 LEONIDES Stop: 12/23/23 10:59 Last Admin: 11/23/23 11:21 Dose: 5 mls/min Documented By: SHANIQUE Ioversol (Optiray 320 125ml) 119 ml IV ONCE ONE Stop: 11/22/23 15:26 Last Admin: 11/22/23 15:28 Dose: 119 ml Documented By: LUCIA Ioversol (Optiray 320 100ml) 94 ml IV ONCE ONE Stop: 11/22/23 16:51 Last Admin: 11/22/23 16:51 Dose: 94 ml Documented By: ELYSE Ioversol (Optiray 320 100ml) 118 ml IV ONCE ONE Stop: 11/23/23 13:30 Last Admin: 11/23/23 13:29 Dose: 118 ml Documented By: ELYSE Lorazepam (Lorazepam 2 Mg/1 Ml Vial) 1 mg IV NOW STA Stop: 11/22/23 16:40 Last Admin: 11/22/23 16:43 Dose: 1 mg Documented By: DULCE Lorazepam (Lorazepam 2 Mg/1 Ml Vial) 1 mg IV ONE PRN; Protocol PRN Reason: EtoH Withdrawal AWSS 6-10 Last Admin: 11/22/23 23:54 Dose: 1 mg Documented By: DIPTI Lorazepam (Lorazepam 2 Mg/1 Ml Vial) 1 mg IV NOW STA Stop: 11/23/23 01:33 Last Admin: 11/23/23 01:58 Dose: 1 mg Documented By: DIPTI Lorazepam (Lorazepam 2 Mg/1 Ml Vial) 0.5 mg IV NOW STA Stop: 11/23/23 04:06 Last Admin: 11/23/23 04:49 Dose: 0.5 mg Documented By: [facility] Potassium Chloride (Potassium Chloride 10 Meq Tabcr) 20 meq PO NOW STA Stop: 11/23/23 14:06 Last Admin: 11/23/23 14:50 Dose: 20 meq Documented By: DTT Imaging Data Radiologist's Impression: Head CT 11/22/23 14:[address] OF THE BRAIN; CT ANGIOGRAM OF THE BRAIN; CT ANGIOGRAM OF THE NECK CLINICAL HISTORY: Change in metal status. Fall. COMPARISON STUDY: CT angiogram of the head and neck dated 09/12/2020. TECHNIQUE: Unenhanced axial CT scan of the brain is performed. Subsequently, following the IV administration of 119 of Optiray 320, CT angiogram of the head and neck was performed from the aortic arch to the vertex. Images are reviewed in the axial, sagittal, and coronal planes. 3-D MIPS images are created and assessed. IV contrast was administered without complication. All measurements were calculated based on NASCET criteria. A dose lowering technique was utilized adhering to the principles of ALARA. The examinations are compromised by motion artifact. CT DOSE: 2092.18 mGy.cm FINDINGS: Brain parenchyma: There is age-related involutional change noting mild to moderate subcortical and periventricular microangiopathic disease. 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 There is no evidence of hemorrhage, mass effect, or acute territorial ischemia noting a motion compromises examination. There is no evidence of enhancing mass lesion on the angiogram phase images. The ventricles, sulci, and cisterns are prominent secondary to involutional change. Hernandez-white matter differentiation is preserved. No extra-axial fluid collection is seen. Thoracic aorta: There is atherosclerotic calcification of the thoracic aorta. Imaged portions of the thoracic aorta are normal in caliber. The aortic arch demonstrates bovine variant anatomy. Right carotid arterial system: The right common carotid artery is widely patent, as is the right external carotid artery. There is advanced atherosclerotic plaque in the carotid bulb. This causes less than 50% stenosis of the origin of the right internal carotid artery. The mid and distal portions of the right internal carotid artery are patent. Left carotid arterial system: The left common carotid artery is widely patent. 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 This extends approximately 1.5 cm in length and there is only trace flow. There is reconstitution of flow at the level of C3. The mid and distal portions of the internal carotid artery are patent to the skull base. There is at least mild stenosis of the origin of the left external carotid artery which is patent. Vertebral arteries: The vertebral arteries are patent bilaterally noting left- sided dominance. Subclavian arteries: Widely patent bilaterally. Intracranial vasculature: There is atherosclerotic calcification of the cavernous carotid and vertebral arteries. The internal carotid arteries are patent at the skull base, as are the anterior and middle cerebral arteries bilaterally. The left A1 segment is diminutive. The vertebrobasilar system and posterior cerebral arteries are widely patent. The left vertebral artery is dominant. There is [id number] stenosis of the supraclinoid internal carotid arteries, left side greater than right. No aneurysm or focal vessel cut off is seen throughout the intracranial circulation. Jugular veins: Patent bilaterally. Dural sinuses: Patent. Lung apices: Partially visualized upper lobe lung parenchyma appears clear. Soft tissues: The visualized pharyngeal soft tissues are normal in appearance noting angiographic phase technique. The oropharyngeal airway appears widely patent. The salivary and thyroid glands are normal in appearance. No cervical lymphadenopathy is seen. Skeletal structures: The skeletal structures are osteopenic. The calvarium appears intact. The cervical spine is maintaining noting advanced multilevel spondylosis. Orbits: The bony orbits are intact. Orbital contents are normal as visualized noting bilateral ocular lens implants. Sinuses and mastoids: The paranasal sinuses are clear. The mastoid air cells are well pneumatized. IMPRESSION: 1. There is no evidence of hemorrhage, mass effect, or acute territorial ischemia noting a motion compromised examination. 2. There is [id number] stenosis of the supraclinoid internal carotid arteries bilaterally, left greater than right. 3. Otherwise unremarkable CT angiogram of the brain. 4. There is a short segment of near complete thrombosis at the origin of the left internal carotid artery. There is likely a trace trace flow, and this has modestly worsened from the 09/12/2020 examination. The mid-distal portion of the vessel are patent. 5. Atherosclerotic plaque causes less than 50% stenosis at the origin of the right internal carotid artery. ACT 112: Negative or not required by law. Electronically signed by: Blade Willis M.D. 11/22/2023 3:53 PM Head CTA 11/22/23 14:[address] OF THE BRAIN; CT ANGIOGRAM OF THE BRAIN; CT ANGIOGRAM OF THE NECK CLINICAL HISTORY: Change in metal status. Fall. COMPARISON STUDY: CT angiogram of the head and neck dated 09/12/2020. TECHNIQUE: Unenhanced axial CT scan of the brain is performed. Subsequently, following the IV administration of 119 of Optiray 320, CT angiogram of the head and neck was performed from the aortic arch to the vertex. Images are reviewed in the axial, sagittal, and coronal planes. 3-D MIPS images are created and assessed. IV contrast was administered without complication. All measurements were calculated based on NASCET criteria. A dose lowering technique was utilized adhering to the principles of ALARA. The examinations are compromised by motion artifact. CT DOSE: 2092.18 mGy.cm FINDINGS: Brain parenchyma: There is age-related involutional change noting mild to moderate subcortical and periventricular microangiopathic disease. 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 There is no evidence of hemorrhage, mass effect, or acute territorial ischemia noting a motion compromises examination. There is no evidence of enhancing mass lesion on the angiogram phase images. The ventricles, sulci, and cisterns are prominent secondary to involutional change. Hernandez-white matter differentiation is preserved. No extra-axial fluid collection is seen. Thoracic aorta: There is atherosclerotic calcification of the thoracic aorta. Imaged portions of the thoracic aorta are normal in caliber. The aortic arch demonstrates bovine variant anatomy. Right carotid arterial system: The right common carotid artery is widely patent, as is the right external carotid artery. There is advanced atherosclerotic plaque in the carotid bulb. This causes less than 50% stenosis of the origin of the right internal carotid artery. The mid and distal portions of the right internal carotid artery are patent. Left carotid arterial system: The left common carotid artery is widely patent. 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 This extends approximately 1.5 cm in length and there is only trace flow. There is reconstitution of flow at the level of C3. The mid and distal portions of the internal carotid artery are patent to the skull base. There is at least mild stenosis of the origin of the left external carotid artery which is patent. Vertebral arteries: The vertebral arteries are patent bilaterally noting left- sided dominance. Subclavian arteries: Widely patent bilaterally. Intracranial vasculature: There is atherosclerotic calcification of the cavernous carotid and vertebral arteries. The internal carotid arteries are patent at the skull base, as are the anterior and middle cerebral arteries bilaterally. The left A1 segment is diminutive. The vertebrobasilar system and posterior cerebral arteries are widely patent. The left vertebral artery is dominant. There is tsjf-es-zkstbias stenosis of the supraclinoid internal carotid arteries, left side greater than right. No aneurysm or focal vessel cut off is seen throughout the intracranial circulation. Jugular veins: Patent bilaterally. Dural sinuses: Patent. Lung apices: Partially visualized upper lobe lung parenchyma appears clear. Soft tissues: The visualized pharyngeal soft tissues are normal in appearance noting angiographic phase technique. The oropharyngeal airway appears widely patent. The salivary and thyroid glands are normal in appearance. No cervical lymphadenopathy is seen. Skeletal structures: The skeletal structures are osteopenic. The calvarium appears intact. The cervical spine is maintaining noting advanced multilevel spondylosis. Orbits: The bony orbits are intact. Orbital contents are normal as visualized noting bilateral ocular lens implants. Sinuses and mastoids: The paranasal sinuses are clear. The mastoid air cells are well pneumatized. IMPRESSION: 1. There is no evidence of hemorrhage, mass effect, or acute territorial ischemia noting a motion compromised examination. 2. There is [id number] stenosis of the supraclinoid internal carotid arteries bilaterally, left greater than right. 3. Otherwise unremarkable CT angiogram of the brain. 4. There is a short segment of near complete thrombosis at the origin of the left internal carotid artery. There is likely a trace trace flow, and this has modestly worsened from the 09/12/2020 examination. The mid-distal portion of the vessel are patent. 5. Atherosclerotic plaque causes less than 50% stenosis at the origin of the right internal carotid artery. ACT 112: Negative or not required by law. Electronically signed by: Blade Willis M.D. 11/22/2023 3:53 PM Neck CTA 11/22/23 14:[address] OF THE BRAIN; CT ANGIOGRAM OF THE BRAIN; CT ANGIOGRAM OF THE NECK CLINICAL HISTORY: Change in metal status. Fall. COMPARISON STUDY: CT angiogram of the head and neck dated 09/12/2020. TECHNIQUE: Unenhanced axial CT scan of the brain is performed. Subsequently, following the IV administration of 119 of Optiray 320, CT angiogram of the head and neck was performed from the aortic arch to the vertex. Images are reviewed in the axial, sagittal, and coronal planes. 3-D MIPS images are created and assessed. IV contrast was administered without complication. All measurements were calculated based on NASCET criteria. A dose lowering technique was utilized adhering to the principles of ALARA. The examinations are compromised by motion artifact. CT DOSE: 2092.18 mGy.cm FINDINGS: Brain parenchyma: There is age-related involutional change noting mild to moderate subcortical and periventricular microangiopathic disease. 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 There is no evidence of hemorrhage, mass effect, or acute territorial ischemia noting a motion compromises examination. There is no evidence of enhancing mass lesion on the angiogram phase images. The ventricles, sulci, and cisterns are prominent secondary to involutional change. Hernandez-white matter differentiation is preserved. No extra-axial fluid collection is seen. Thoracic aorta: There is atherosclerotic calcification of the thoracic aorta. Imaged portions of the thoracic aorta are normal in caliber. The aortic arch demonstrates bovine variant anatomy. Right carotid arterial system: The right common carotid artery is widely patent, as is the right external carotid artery. There is advanced atherosclerotic plaque in the carotid bulb. This causes less than 50% stenosis of the origin of the right internal carotid artery. The mid and distal portions of the right internal carotid artery are patent. Left carotid arterial system: The left common carotid artery is widely patent. 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 This extends approximately 1.5 cm in length and there is only trace flow. There is reconstitution of flow at the level of C3. The mid and distal portions of the internal carotid artery are patent to the skull base. There is at least mild stenosis of the origin of the left external carotid artery which is patent. Vertebral arteries: The vertebral arteries are patent bilaterally noting left- sided dominance. Subclavian arteries: Widely patent bilaterally. Intracranial vasculature: There is atherosclerotic calcification of the cavernous carotid and vertebral arteries. The internal carotid arteries are patent at the skull base, as are the anterior and middle cerebral arteries bilaterally. The left A1 segment is diminutive. The vertebrobasilar system and posterior cerebral arteries are widely patent. The left vertebral artery is dominant. There is [id number]-ikvvpsli stenosis of the supraclinoid internal carotid arteries, left side greater than right. No aneurysm or focal vessel cut off is seen throughout the intracranial circulation. Jugular veins: Patent bilaterally. Dural sinuses: Patent. Lung apices: Partially visualized upper lobe lung parenchyma appears clear. Soft tissues: The visualized pharyngeal soft tissues are normal in appearance noting angiographic phase technique. The oropharyngeal airway appears widely patent. The salivary and thyroid glands are normal in appearance. No cervical lymphadenopathy is seen. Skeletal structures: The skeletal structures are osteopenic. The calvarium appears intact. The cervical spine is maintaining noting advanced multilevel spondylosis. Orbits: The bony orbits are intact. Orbital contents are normal as visualized noting bilateral ocular lens implants. Sinuses and mastoids: The paranasal sinuses are clear. The mastoid air cells are well pneumatized. IMPRESSION: 1. There is no evidence of hemorrhage, mass effect, or acute territorial ischemia noting a motion compromised examination. 2. There is zhsb-yg-lqyujvij stenosis of the supraclinoid internal carotid arteries bilaterally, left greater than right. 3. Otherwise unremarkable CT angiogram of the brain. 4. There is a short segment of near complete thrombosis at the origin of the left internal carotid artery. There is likely a trace trace flow, and this has modestly worsened from the 09/12/2020 examination. The mid-distal portion of the vessel are patent. 5. Atherosclerotic plaque causes less than 50% stenosis at the origin of the right internal carotid artery. ACT 112: Negative or not required by law. Electronically signed by: Blade Willis M.D. 11/22/2023 3:53 PM Discharge Plan Visit Data Chief Complaint: Altered Mental Status Stated Complaint: FALL, CONFUSION ED Provider: Nadia Clemente Discharge Problem: Altered mental status, Elevated troponin, Elevated lactic acid level, Garbled speech, Acute confusion Patient Disposition: Admitted As Inpatient Discharge Instructions Interventions: ED Discharge Assessment Last Done: 11/22/23 22:32
--- NOTE | 2023-11-22 18:32 | CT Scan Report ---
CT SCAN OF THE ABDOMEN AND PELVIS WITH IV CONTRAST CLINICAL HISTORY: Change in mental status. Sepsis. COMPARISON STUDY: Abdominal CT dated 04/30/2016. TECHNIQUE: Following the IV administration of 94 cc of Optiray 320, CT scan of the abdomen and pelvi s is performed from the lung bases to the proximal femora. Images are reviewed in the axial, sagittal , and coronal planes. IV contrast was administered without complication. A dose lowering technique wa s utilized adhering to the principles of ALARA. The examination is degraded by streak artifact from t he arms which could not be elevated above the abdomen. There is also motion artifact. CT DOSE: 1290.56 mGy.cm FINDINGS: Lung bases: The heart is enlarged and without pericardial effusion. The coronary arteries are densely calcified. A small hiatal hernia is noted. The lung bases are clear noting bibasilar scarring/atelec tasis. Liver: The contrast-enhanced liver is normal in size, contour, and attenuation. There is no intrahepa tic biliary ductal dilatation. The hepatic veins and portal veins are patent. Gallbladder: Unremarkable. Spleen: Normal in size and attenuation. Pancreas: Mildly atrophic and grossly unremarkable. Adrenal glands: Unremarkable. Kidneys: There is slight asymmetric cortical atrophy of the right kidney as compared to the left. No hydronephrosis is seen. The kidneys and ureters are filled with excreted IV contrast. The kidneys enh ance symmetrically. Scattered subcentimeter cortical hypodensities likely represent cysts but are too small for definitive characterization. Abdominal vasculature: The abdominal aorta is normal in course and caliber noting advanced atheroscle rotic calcification. There is at least moderate stenosis at the origin of the superior mesenteric art sky. Bowel: There is rectosigmoid fecal retention and moderate constipation. No bowel obstruction is seen. There is moderate to advanced colonic diverticulosis without CT evidence of acute diverticulitis. Th e appendix is well-visualized and normal. There is a small duodenal diverticulum. Peritoneum: There is no intraperitoneal free air or abdominal ascites. Lymphadenopathy: None. Pelvic viscera: The bladder is decompressed around a Hernandez catheter and is filled with excreted IV co ntrast. There are foci of intraluminal gas which are likely related to instrumentation. The prostate gland is enlarged and heterogeneous. The bladder wall appears thickened/trabeculated indicating chron ic outlet obstruction. There is a fat containing right groin hernia. Skeletal structures: The skeletal structures are osteopenic. There is a mild chronic compression defo rmity of L5. Moderate lumbosacral spondylosis is observed. A large hemangioma is seen in the body of L4. No lytic or blastic lesions are seen. IMPRESSION: 1. No acute infectious or inflammatory findings are identified in the abdomen or pelvis. 2. Cardiomegaly. 3. Advanced atherosclerotic change is seen throughout the abdominal aorta and its major branches. 4. Colonic diverticulosis without CT evidence of acute diverticulitis. 5. Additional findings as above. ACT 112: Negative or not required by law. Electronically signed by: Blade Willis M.D. 11/22/2023 6:30 PM
--- NOTE | 2023-11-22 20:02 | History & Physical Report ---
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 Lactate repeat ordered, blood cultures ordered. Empiric Zosyn ordered along with 1 dose of vancomycin for sepsis. MRSA nares pending. If positive will transition to cefepime and vancomycin otherwise we will continue Zosyn. Pro-Tony ordered. Repeat lactate downtrending at 3.0 Patient altered and obtunded at time of ER assessment. CThead without acute stroke pathology, CTA/P without intra-abdominal pathology BC pending UA is uninfected appearing. (2) Pneumonia: (3) Carotid stenosis: Plan: Carotid stenosis CThead without evidence of stroke; CTA of the neck shows near complete thrombosis at the left carotid artery with trace flow moderately worsened compared to 2020. Mild to moderate stenosis of the supraclinoid bilateral internal carotid arteries is present, 50% atherosclerotic plaque at the right I CA Case was [place] [facility] due to near complete thrombosis of left ICA and patient admitted obtunded. Anticoagulation was not recommended. Was recommended to continue aspirin daily. Will complete CVA eval with MRI Continue aspirin daily (4) NSTEMI (non-ST elevated myocardial infarction): Plan: NSTEMI, suspect type II Troponin 171, increasing to 590. Chest pain-free at reevaluation. Trended every 6 hours EKG: A-fib with RVR, nonspecific ST changes, incomplete right bundle branch block. No territorial ST elevation. Suspect severe demand due to profound volume contraction and sepsis Echo ordered, trend troponin to peak On reevaluation patient awakens denies chest pain and reports he has not had any chest pain prior to admission, and has no chest pain at time of bedside reevaluation Patient does have some bilateral lower extremity edema, but otherwise he is extremely volume contracted and there is no JVD. Suspect venous stasis rather than CHF (5) Alcohol abuse: Plan: Patient denies recent alcohol use, home school liaison officer denies recent alcohol or bottles in the home Due to past concerns of alcohol abuse and limited history will place on IV to assess, and also give thiamine/folic acid supplementation Plan DVT prophylaxis: SCDs. Lovenox deferred due to history of gastrointestinal hemorrhage Disposition: PCU CODE STATUS: DNR/DNI, see social concerns discussion below Diet: N.p.o. until mentation improves Social concerns Patient is a local caregiver who was present at bedside to give some collateral history. Patient has left AMA from the hospital before and last time he was here was likely with bereavement as his had recently passed. Patient's caregiver reports that patient generally does not like to go to the hospital, and despite having a cough and being ill for a week or 2 had declined for evaluation until he was found down . his son Jamie lived in [place] although had not talking to his father for over 20 years and was potentially going to come help with patient's care at that time. Was reviewed patient's local caregiver, although she is not family or his decision maker. Surrogate decision is patient's son Jamie who can be reached at [phone]. Per review with correctional case records supervisor patient had previously indicated that he would not want resuscitation or breathing tube, and was DNR/DNI. Patient affirms this but have concerns for his ability to understand medical decision making at time of assessment and does not demonstrate a true capacity or the ability to verbalize back risks and benefits of decisions. As he has been DNR/DNI in the past, and affirms consistent with this will keep DNR/DNI and discuss further with son. Son was called at the number listed however went to voicemail. Call placed again 45 minutes later with hospitals which were number left for call back. History of Present Illness Primary Care Provider: Nicolas Foreman MD Joshua Arriaga is a 88-year-old male who was found down at home by his home health nurse with a posterior scalp hematoma/abrasion, garbled speech, and altered mentation and who is unable to provide meaningful history. Joshua is an 88-year-old male with a past medical history of anemia, IBS, stenosis of left carotid artery, melena/GI bleed, and hypertension. Patient is obtunded at time of assessment, collateral is collected with the assistance of his caregiver. By report he has had 1 to 2 weeks of cough but had refused to go to the hospital. On a caregiver check and he was found down and was brought to the hospital for evaluation. Additional history is limited. Patient's son Jamie is out of town but can be reached at [phone]. Per caregiver other than having a cough for last 2 weeks seem to have been at his normal baseline recently. If prescribed meds, is unclear if he takes them and has never been seen taking home medications. No known drug allergies. No recent tobacco or alcohol use to caregivers knowledge; although does have a reported history in his chart of prior alcohol abuse. Medical History: Reviewed Medications: Reviewed Surgical History: Reviewed Family history: Reviewed Allergies: Reviewed Social History: Reviewed Code Status: DNR/DNI Allergies Allergy/AdvReac Type Severity Reaction Status Date / Time No Known Allergies Allergy Verified 11/22/23 17:05 Home Medications Medication Instructions Recorded Confirmed Type No Known Home Medications 11/22/23 11/22/23 History Past Med/Surg History Problem List Carotid stenosis NSTEMI (non-ST elevated myocardial infarction) Sepsis Hypertension Metabolic encephalopathy Acute kidney injury Acute hyponatremia (Acute) Dark stools (Acute) Weakness (Acute) Dark stools Hyponatremia Low vitamin B12 level Anemia Hypothyroidism GI bleed Symptomatic anemia Hypomagnesemia (Acute) Falls Vertebral artery stenosis Hypokalemia Bradycardia Contusion of multiple sites (Acute) Hyperbilirubinemia (Acute) Hepatic steatosis Arthritis (Acute) Irritable bowel syndrome (Acute) Macular degeneration (Acute) Mitral regurgitation (Acute) Stenosis of left carotid artery greater than 50% (Acute) Medical History Influenza A Tinea unguium Cellulitis of leg, right Gastric ulcer GI bleed History of CVA (cerebrovascular accident) Paroxysmal A-fib Elevated CK Hyperglycemia Insomnia Hypothyroidism Anxiety Alcohol abuse Hypertensive urgency Surgical History History of colonoscopy History of tonsillectomy History of cataract surgery Family History Mother , age 90 of uncertain causes. Anxiety Father , age 55 of pulmonary disease and alcoholism Lung disease Sister Kidney stone Denies family history of Ovarian cancer Prostate cancer Myocardial infarction Breast cancer Colorectal cancer Social History Smoking Status: Unknown if ever smoked Tobacco Type: Cigarettes Age Started Using Tobacco: 20; Age Quit Using Tobacco: 60; Cigarettes Per Day: social smoker, off and on; Second Hand Exposure: No; Do You Dip or Chew Tobacco: No; Hx Alcohol Use: No Hx Substance Use: No Preferred Language: Luxembourgish Communication Ability: Effective Visual Impairment: No Limitations Hearing Ability: Normal Career Technology Teacher Required: No Beliefs That Will Affect Care: Spiritual marital status: Current Living Situation: Alone Current Living Situation Comment: Lives alone with spouse who is WCB current occupational status: retired 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 Does not give consistent answers to questions. HEENT: Atraumatic, normocephalic. Vision and hearing grossly intact Pulm: Diminished globally, coarse in the left lower lobe with rhonchi. Cardiac: Tachycardic, soft systolic murmurs present.radial pulses intact and symmetrical. 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 Some bilateral pinkness of the lower extremities but no demarcated erythema to suggest cellulitis. Results & Data Results & Data Vital Signs (Past 12 Hours) Vital Signs Temp Pulse Pulse Resp BP BP Pulse Ox 11/22/23 18:47 103 H 18 184/98 H 95 11/22/23 16:01 124 H 11/22/23 15:27 160/129 H 93 11/22/23 14:57 145/112 H 96 11/22/23 14:46 11/22/23 14:46 36.9 C 130 H 20 168/83 H 92 O2 Del Method 11/22/23 18:47 Room Air 11/22/23 16:01 11/22/23 15:27 11/22/23 14:57 11/22/23 14:46 Room Air 11/22/23 14:46 Room Air PG Care Time/CCT Total # of Minutes Spent Total Time Spent with Patient: Total time spent is greater than 50% in coordination of care (as documented) at patient's floor/unit and/or counseling patient: Coding Level of Care Code 38076 INT INP/OBS CARE MIN Diagnoses Sepsis A41.9 Pneumonia J18.9 Carotid stenosis I65.29 NSTEMI (non-ST elevated myocardial infarction) I21.4 Alcohol abuse F10.10
[2023-11-22] MEDS: LACTATED RINGER'S 1,000 ML IV ONE (20:14)
[2023-11-22] MEDS: LACTATED RINGER'S 1,000 ML IV SCH (20:17)
[2023-11-22] MEDS: PIPERACILLIN/TAZOBACTAM 4.5 GM/100 ML BAG IV ONE (20:51)
[2023-11-22] MEDS ORDERED: VANCOMYCIN CONSULT ACTIVE PRN (20:57)
--- NOTE | 2023-11-22 21:07 | Billing Data ---
Date of Service November 22, 2023 Coding Level of Care Code 39100 CRITICAL CARE 1ST 30-74M Additional Critical Care Time Total Critical Care Time: 35 35 minutes critical care time spent in the diagnosis/treatment of acute sepsis including abx, fluid rescuscitation, and ordering/independent interpretation of CXR/imaging
[2023-11-22] MEDS: VANCOMYCIN HCL 1,250 MG in SODIUM CHLORIDE 0.9% 500 ML IV ONE (21:25)
--- NOTE | 2023-11-22 22:05 | XRay Report ---
SINGLE VIEW CHEST CLINICAL HISTORY: Sepsis. FINDINGS: An AP, portable, semierect chest radiograph is compared to study dated 04/28/2023. The heart is enlarged noting atherosclerotic calcification of the thoracic aorta. There is pulmonary vascular c ongestion. Chronic interstitial thickening is similar to previous. Scarring/atelectasis is noted at t he lung bases. No airspace consolidation or large pleural effusion is identified. No pneumothorax is seen. The skeletal structures are osteopenic. The bony thorax is grossly intact. IMPRESSION: Cardiomegaly with mild pulmonary vascular congestion. ACT 112: Negative or not required by law. Electronically signed by: Blade Willis M.D. 11/22/2023 10:04 PM
[2023-11-22] MEDS: HALOPERIDOL LACTATE 5 MG/ML 1 ML VIAL IM STA (22:17)
[2023-11-22] MEDS: THIAMINE HCL 300 MG in SODIUM CHLORIDE 0.9% 50 ML IV ONE (23:47)
[2023-11-22] MEDS: LORazepam 2 MG/1 ML VIAL IV PRN (23:54)
[2023-11-23 00:22] LABS: Amphetamines+Metham, Urine Neg (Neg); Barbiturates, Urine Neg (Neg); Benzodiazepine, Urine Neg (Neg); Cocaine, Urine Neg (Neg); Fentanyl, Urine Neg (Neg); MDMA (Ecstacy), Urine Neg (Neg); Marijuana, Urine Neg (Neg); Methadone, Urine Neg (Neg); Opiate, Urine Neg (Neg); Phencyclidine, Urine Neg (Neg)
[2023-11-23] MEDS: PIPERACILLIN/TAZOBACTAM 4.5 GM/100 ML BAG IV SCH (01:13)
[2023-11-23] MEDS: LORazepam 2 MG/1 ML VIAL IV STA ×2 (01:58→04:49)
[2023-11-23 06:08] LABS: Basophils # (auto) 0.07 K/uL (0.00-0.20); Basophils % (auto) 0.5 %; Eosinophils # (auto) 0.02 K/uL (0.00-0.50); Eosinophils % (auto) 0.2 %; Hematocrit (blood only) 38.2 % (42.0-52.0); Hemoglobin 13.8 g/dl (14.0-18.0); Immature Granulocytes # (auto) 0.07 K/uL (0.01-0.20); Immature Granulocytes % (auto) 0.5 %; Lymphocytes % (auto) 4.5 %; Mean Corpuscular Hemoglobin 33.4 pg (25.0-34.0); Mean Corpuscular Hgb Conc 36.1 g/dL (32.0-36.0); Mean Corpuscular Volume 92.5 fL (80.0-100.0); Mean Platelet Volume 9.2 fL (9.4-12.4); Monocytes # (auto) 1.38 K/uL (0.11-0.59); Monocytes % (auto) 10.4 %; Neutrophils # (auto) 11.18 K/uL (1.40-6.50); Neutrophils % (auto) 83.9 %; Platelet Count 189 K/uL (130-400); RDW Coefficient of Variation 14.8 % (11.5-14.5); RDW Standard Deviation 49.4 fL (36.4-46.3); Red Blood Count 4.13 M/uL (4.70-6.10); White Blood Count 13.32 K/ul (4.8-10.8)
[2023-11-23 06:22] LABS: BUN Creatinine Ratio 12.3 (10-20); Calcium 8.5 mg/dl (8.6-10.3); Est GFR (African American) 72.3 ml/min; Est GFR (Non-African American) 62.4 ml/min; Potassium 3.5 mmol/L (3.5-5.1)
[2023-11-23 06:31] LABS: Troponin I High Sensitivity 805.2 pg/ml (0-20)
[2023-11-23] MEDS ORDERED: VANCOMYCIN HCL 1,000 MG in SODIUM CHLORIDE 0.9% 250 ML IV SCH (09:00)
[2023-11-23 09:12] LABS: Thyroid Stimulating Hormone 2.576 uIu/ml (0.300-4.500)
[2023-11-23] MEDS: VANCOMYCIN HCL 1,000 MG in SODIUM CHLORIDE 0.9% 250 ML IV SCH (09:41)
[2023-11-23] MEDS: THIAMINE HCL 100 MG in SYRINGE 9 ML IV SCH (09:43)
[2023-11-23] MEDS: FOLIC ACID 1 MG in SYRINGE 9.8 ML IV SCH (09:43)
--- NOTE | 2023-11-23 10:12 | Hospitalist Progress Note ---
Date of Service November 23, 2023 Assessment & Plan (1) Sepsis: (2) Cellulitis of leg, right: (3) Metabolic encephalopathy: (4) Afib: (5) NSTEMI (non-ST elevated myocardial infarction): (6) Carotid stenosis: (7) H/O: GI bleed: (8) Hypertension: (9) H/O alcohol dependence: Plan 88-year-old male with past medical history of left carotid artery stenosis, history of GI bleed secondary to ulcer, history of alcohol use disorder, hypertension who was found on the floor in his house by his caregiver and was brought to the hospital. Patient was found to be obtunded and septic and also found to be in A-fib with RVR #Sepsis present on admission, source either pulmonary versus bilateral lower extremity cellulitis #Suspected bilateral lower extremity cellulitis #Acute metabolic encephalopathy Lactic acid levels have improved Monitor lactic acid level MRSA screen is positive Blood cultures have been sent from ED Continue IV Zosyn plus IV vancomycin White count has improved Continue LR at 100 mL/h Chest x-ray does not show any evidence of infiltrates or consolidation Check respiratory bio fire I suspect source of sepsis may be bilateral lower extremity cellulitis Check bilateral lower extremity Dopplers CT of the head showed no evidence of hemorrhage, mass effect and showed mild to moderate stenosis of the left supraclinoid internal carotid arteries bilaterally with left greater than right and near complete thrombosis of the origin of the left internal carotid artery. Given patient's presentation where he was found on the floor, change in mentation, atrial fibrillation we will also get MRI of the brain Neurochecks every 4 hours Neurology consulted EYE TECHNICIAN/PT/OT consults Await neurology consult and recommendations #Atrial fibrillation #NSTEMI #Essential hypertension #Carotid stenosis CT of the neck shows mild to moderate stenosis of the supraclinoid internal carotid arteries bilaterally, left greater than right. There is a short segment of near complete thrombosis of the origin of the left internal carotid artery. TSH is 2.576 Troponin has gone up from 171 to 805 Check fasting lipid Cardiology consulted: Dr. Tia Davison to see patient Continue telemetry monitoring Resume amlodipine 5 mg p.o. daily when patient able to swallow Await cardiology consulted recommendation #History of alcohol use disorder Continue multivitamin plus thiamine plus folic acid CODE STATUS: DNR/DNI DVT prophylaxis: Bilateral SCDs Care plan discussed with nursing staff. Patient's son Jamie ([phone]) updated on the phone Admission and Anticipated Discharge Date Admission Date: November 22, 2023 Subjective Patient seen and examined H&P reviewed Telemetry monitoring reviewed Patient is lethargic and arousable and is able to tell me his name and he is aware he is in the hospital but is not able to tell me today's date, his date of He falls asleep during conversation Unable to get a full review of systems because of patient's current mentation Patient did receive IM Haldol and few doses of IV Ativan since admission Patient's caregiver Nandini at bedside. As per Nandini, she has never looked at patient's legs and is unaware of what his legs look like to baseline. As per Nandini, home health comes in approximately an hour a day just to sit with the patient and given company. Patient apparently is independent of ADLs and ambulates on his own without a cane or walker. Review of Systems Review of Systems: As per HPI Physical Exam Physical Exam: General: No acute distress Psych: Somnolent but arousable and able to tell me his name and he is in the hospital. Disoriented to time HEENT: Anicteric sclera, dry oral mucosa, dressing intact at back of scalp CVS: Irregular rate and rhythm, systolic murmur audible Lungs: Bilateral air entry with diminished breath sounds, no wheezing noted Abdomen: Soft, nontender, no rebound, no guarding Ext: Bilateral lower extremity edema with chronic skin changes noted with erythema of bilateral lower extremity right greater than left Neuro: Unable to assess due to patient's mentation at present : Hernandez catheter in place Results & Data Results & Data Vital Signs (Past 12 Hours) Vital Signs Temp Pulse Resp BP Pulse Ox O2 Del Method O2 Flow Rate 11/23/23 07:47 36.9 C 89 20 165/91 H 97 Nasal Cannula 2 11/23/23 00:56 36.9 C 109 H 20 162/89 H 93 BiPAP 11/22/23 23:00 Room Air Laboratory Results Laboratory Results - last 24 hr 11/22/23 11/22/23 11/22/23 14:50 14:52 14:57 WBC 17.66 H RBC 4.55 L Hgb 14.9 POC Hgb 15.3 Hct 42.7 POC Hct 45 MCV 93.8 MCH 32.7 MCHC 34.9 RDW Std Deviation 50.6 H RDW Coeff of Randall 14.8 H Plt Count 231 MPV 9.4 Immature Gran % (Auto) 1.7 Neut % (Auto) 83.3 Lymph % (Auto) 6.5 Broome % (Auto) 7.1 Eos % (Auto) 0.8 Baso % (Auto) 0.6 Neut # (Auto) 14.72 H Lymph # (Auto) 1.15 L Broome # (Auto) 1.25 H Eos # (Auto) 0.14 Baso # (Auto) 0.10 Immature Gran # (Auto) 0.30 H PT 11.6 INR 1.1 APTT 26 PTT Ratio 1.0 POC Sodium 138 Sodium 137 POC Potassium 3.5 Potassium 3.5 POC Chloride 102 Chloride 100 Carbon Dioxide 22 POC Total CO2 20 L Anion Gap 15 H POC Anion Gap 21.0 POC BUN 15 BUN 16 Creatinine 1.22 POC Creatinine 1.2 Est Cr Clr Drug Dosing 38.0 Est GFR ( Amer) 61.0 Est GFR (Non-Af Amer) 52.6 BUN/Creatinine Ratio 13.1 Glucose 180 H POC Glucose (other) 178 H Lactate 6.3 H* Calcium 9.1 POC Ioniz Calcium Kitty 1.09 L Magnesium 2.0 Total Bilirubin 0.8 AST 20 ALT 16 Alkaline Phosphatase 94 Total Creatine Kinase 220 Troponin I High Sens 171.0 H* Total Protein 7.2 Albumin 4.1 Globulin 3.1 Albumin/Globulin Ratio 1.3 Procalcitonin 0.03 TSH Urine Color Urine Appearance Urine pH Ur Specific Horton Urine Protein Urine Glucose (UA) Urine Ketones Urine Blood Urine Nitrite Urine Bilirubin Urine Urobilinogen Ur Leukocyte Esterase Urine WBC (Auto) Urine RBC (Auto) U Hyaline Cast (Auto) U Epithel Cells (Auto) Urine Bacteria (Auto) Nasal Screen MRSA (PCR) Urine Opiates Screen Ur Methadone, Qual Urine Fentanyl Screen Urine Barbiturates Ur Phencyclidine (PCP) U Amphetamin/Meth Scrn MDMA (Ecstasy) Screen U Benzodiazepines Scrn Ur Cocaine Metabolite U Marijuana (THC) Screen 11/22/23 11/22/23 11/22/23 17:35 20:05 23:25 WBC RBC Hgb POC Hgb Hct POC Hct MCV MCH MCHC RDW Std Deviation RDW Coeff of Randall Plt Count MPV Immature Gran % (Auto) Neut % (Auto) Lymph % (Auto) Broome % (Auto) Eos % (Auto) Baso % (Auto) Neut # (Auto) Lymph # (Auto) Broome # (Auto) Eos # (Auto) Baso # (Auto) Immature Gran # (Auto) PT INR APTT PTT Ratio POC Sodium Sodium POC Potassium Potassium POC Chloride Chloride Carbon Dioxide POC Total CO2 Anion Gap POC Anion Gap POC BUN BUN Creatinine POC Creatinine Est Cr Clr Drug Dosing Est GFR ( Amer) Est GFR (Non-Af Amer) BUN/Creatinine Ratio Glucose POC Glucose (other) Lactate 3.0 H* 3.0 H* Calcium POC Ioniz Calcium Kitty Magnesium Total Bilirubin AST ALT Alkaline Phosphatase Total Creatine Kinase Troponin I High Sens 590.1 H* D Total Protein Albumin Globulin Albumin/Globulin Ratio Procalcitonin TSH Urine Color Urine Appearance Urine pH Ur Specific Horton Urine Protein Urine Glucose (UA) Urine Ketones Urine Blood Urine Nitrite Urine Bilirubin Urine Urobilinogen Ur Leukocyte Esterase Urine WBC (Auto) Urine RBC (Auto) U Hyaline Cast (Auto) U Epithel Cells (Auto) Urine Bacteria (Auto) Nasal Screen MRSA (PCR) Urine Opiates Screen Ur Methadone, Qual Urine Fentanyl Screen Urine Barbiturates Ur Phencyclidine (PCP) U Amphetamin/Meth Scrn MDMA (Ecstasy) Screen U Benzodiazepines Scrn Ur Cocaine Metabolite U Marijuana (THC) Screen 11/22/23 11/22/23 11/23/23 23:41 Unknown 05:46 WBC 13.32 H RBC 4.13 L Hgb 13.8 L POC Hgb Hct 38.2 L POC Hct MCV 92.5 MCH 33.4 MCHC 36.1 H RDW Std Deviation 49.4 H RDW Coeff of Randall 14.8 H Plt Count 189 MPV 9.2 L Immature Gran % (Auto) 0.5 Neut % (Auto) 83.9 Lymph % (Auto) 4.5 Broome % (Auto) 10.4 Eos % (Auto) 0.2 Baso % (Auto) 0.5 Neut # (Auto) 11.18 H Lymph # (Auto) 0.60 L Broome # (Auto) 1.38 H Eos # (Auto) 0.02 Baso # (Auto) 0.07 Immature Gran # (Auto) 0.07 PT INR APTT PTT Ratio POC Sodium Sodium 140 POC Potassium Potassium 3.5 POC Chloride Chloride 103 Carbon Dioxide 28 POC Total CO2 Anion Gap 9 POC Anion Gap POC BUN BUN 13 Creatinine 1.06 POC Creatinine Est Cr Clr Drug Dosing 52.0 Est GFR ( Amer) 72.3 Est GFR (Non-Af Amer) 62.4 BUN/Creatinine Ratio 12.3 Glucose 120 H POC Glucose (other) Lactate Calcium 8.5 L POC Ioniz Calcium Kitty Magnesium Total Bilirubin AST ALT Alkaline Phosphatase Total Creatine Kinase Troponin I High Sens 805.2 H* D Total Protein Albumin Globulin Albumin/Globulin Ratio Procalcitonin TSH 2.576 Urine Color Yellow Urine Appearance Clear Urine pH 8.0 H Ur Specific Horton 1.016 Urine Protein 1+ H Urine Glucose (UA) Negative Urine Ketones Negative Urine Blood 2+ H Urine Nitrite Negative Urine Bilirubin Negative Urine Urobilinogen Negative Ur Leukocyte Esterase Negative Urine WBC (Auto) 0-5 Urine RBC (Auto) 3-5 H U Hyaline Cast (Auto) 0-2 U Epithel Cells (Auto) 0-2 Urine Bacteria (Auto) None Seen Nasal Screen MRSA (PCR) Positive A Urine Opiates Screen Neg Ur Methadone, Qual Neg Urine Fentanyl Screen Neg Urine Barbiturates Neg Ur Phencyclidine (PCP) Neg U Amphetamin/Meth Scrn Neg MDMA (Ecstasy) Screen Neg U Benzodiazepines Scrn Neg Ur Cocaine Metabolite Neg U Marijuana (THC) Screen Neg Diagnostic Findings Head CT 11/22/23 14:[address] OF THE BRAIN; CT ANGIOGRAM OF THE BRAIN; CT ANGIOGRAM OF THE NECK CLINICAL HISTORY: Change in metal status. Fall. COMPARISON STUDY: CT angiogram of the head and neck dated 09/12/2020. TECHNIQUE: Unenhanced axial CT scan of the brain is performed. Subsequently, following the IV administration of 119 of Optiray 320, CT angiogram of the head and neck was performed from the aortic arch to the vertex. Images are reviewed in the axial, sagittal, and coronal planes. 3-D MIPS images are created and assessed. IV contrast was administered without complication. All measurements were calculated based on NASCET criteria. A dose lowering technique was utilized adhering to the principles of ALARA. The examinations are compromised by motion artifact. CT DOSE: 2092.18 mGy.cm FINDINGS: Brain parenchyma: There is age-related involutional change noting mild to moderate subcortical and periventricular microangiopathic disease. 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 There is no evidence of hemorrhage, mass effect, or acute territorial ischemia noting a motion compromises examination. There is no evidence of enhancing mass lesion on the angiogram phase images. The ventricles, sulci, and cisterns are prominent secondary to involutional change. Hernandez-white matter differentiation is preserved. No extra-axial fluid collection is seen. Thoracic aorta: There is atherosclerotic calcification of the thoracic aorta. Imaged portions of the thoracic aorta are normal in caliber. The aortic arch demonstrates bovine variant anatomy. Right carotid arterial system: The right common carotid artery is widely patent, as is the right external carotid artery. There is advanced atherosclerotic plaque in the carotid bulb. This causes less than 50% stenosis of the origin of the right internal carotid artery. The mid and distal portions of the right in ternal carotid artery are patent. Left carotid arterial system: The left common carotid artery is widely patent. 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 This extends approximately 1.5 cm in length and there is only trace flow. There is reconstitution of flow at the level of C3. The mid and distal portions of the internal carotid artery are patent to the skull base. There is at least mild stenosis of the origin of the left external carotid artery which is patent. Vertebral arteries: The vertebral arteries are patent bilaterally noting left- sided dominance. Subclavian arteries: Widely patent bilaterally. Intracranial vasculature: There is atherosclerotic calcification of the cavernous carotid and vertebral arteries. The internal carotid arteries are patent at the skull base, as are the anterior and middle cerebral arteries bilaterally. The left A1 segment is diminutive. The vertebrobasilar system and posterior cerebral arteries are widely patent. The left vertebral artery is dominant. There is [id number] stenosis of the supraclinoid internal carotid arteries, left side greater than right. No aneurysm or focal vessel cut off is seen throughout the intracranial circulation. Jugular veins: Patent bilaterally. Dural sinuses: Patent. Lung apices: Partially visualized upper lobe lung parenchyma appears clear. Soft tissues: The visualized pharyngeal soft tissues are normal in appearance noting angiographic phase technique. The oropharyngeal airway appears widely patent. The salivary and thyroid glands are normal in appearance. No cervical lymphadenopathy is seen. Skeletal structures: The skeletal structures are osteopenic. The calvarium appears intact. The cervical spine is maintaining noting advanced multilevel spondylosis. Orbits: The bony orbits are intact. Orbital contents are normal as visualized noting bilateral ocular lens implants. Sinuses and mastoids: The paranasal sinuses are clear. The mastoid air cells are well pneumatized. IMPRESSION: 1. There is no evidence of hemorrhage, mass effect, or acute territorial ischemia noting a motion compromised examination. 2. There is [id number] stenosis of the supraclinoid internal carotid arteries bilaterally, left greater than right. 3. Otherwise unremarkable CT angiogram of the brain. 4. There is a short segment of near complete thrombosis at the origin of the left internal carotid artery. There is likely a trace trace flow, and this has modestly worsened from the 09/12/2020 examination. The mid-distal portion of the vessel are patent. 5. Atherosclerotic plaque causes less than 50% stenosis at the origin of the right internal carotid artery. ACT 112: Negative or not required by law. Electronically signed by: Blade Willis M.D. 11/22/2023 3:53 PM Head CTA 11/22/23 14:[address] OF THE BRAIN; CT ANGIOGRAM OF THE BRAIN; CT ANGIOGRAM OF THE NECK CLINICAL HISTORY: Change in metal status. Fall. COMPARISON STUDY: CT angiogram of the head and neck dated 09/12/2020. TECHNIQUE: Unenhanced axial CT scan of the brain is performed. Subsequently, following the IV administration of 119 of Optiray 320, CT angiogram of the head and neck was performed from the aortic arch to the vertex. Images are reviewed in the axial, sagittal, and coronal planes. 3-D MIPS images are created and assessed. IV contrast was administered without complication. All measurements were calculated based on NASCET criteria. A dose lowering technique was ut ilized adhering to the principles of ALARA. The examinations are compromised by motion artifact. CT DOSE: 2092.18 mGy.cm FINDINGS: Brain parenchyma: There is age-related involutional change noting mild to moderate subcortical and periventricular microangiopathic disease. 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 There is no evidence of hemorrhage, mass effect, or acute territorial ischemia noting a motion compromises examination. There is no evidence of enhancing mass lesion on the angiogram phase images. The ventricles, sulci, and cisterns are prominent secondary to involutional change. Hernandez-white matter differentiation is preserved. No extra-axial fluid collection is seen. Thoracic aorta: There is atherosclerotic calcification of the thoracic aorta. Imaged portions of the thoracic aorta are normal in caliber. The aortic arch demonstrates bovine variant anatomy. Right carotid arterial system: The right common carotid artery is widely patent, as is the right external carotid artery. There is advanced atherosclerotic plaque in the carotid bulb. This causes less than 50% stenosis of the origin of the right internal carotid artery. The mid and distal portions of the right internal carotid artery are patent. Left carotid arterial system: The left common carotid artery is widely patent. 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 This extends approximately 1.5 cm in length and there is only trace flow. There is reconstitution of flow at the level of C3. The mid and distal portions of the internal carotid artery are patent to the skull base. There is at least mild stenosis of the origin of the left external carotid artery which is patent. Vertebral arteries: The vertebral arteries are patent bilaterally noting left- sided dominance. Subclavian arteries: Widely patent bilaterally. Intracranial vasculature: There is atherosclerotic calcification of the cavernous carotid and vertebral arteries. The internal carotid arteries are patent at the skull base, as are the anterior and middle cerebral arteries bilaterally. The left A1 segment is diminutive. The vertebrobasilar system and posterior cerebral arteries are widely patent. The left vertebral artery is dominant. There is lpny-qs-[id number] stenosis of the supraclinoid internal caroti d arteries, left side greater than right. No aneurysm or focal vessel cut off is seen throughout the intracranial circulation. Jugular veins: Patent bilaterally. Dural sinuses: Patent. Lung apices: Partially visualized upper lobe lung parenchyma appears clear. Soft tissues: The visualized pharyngeal soft tissues are normal in appearance noting angiographic phase technique. The oropharyngeal airway appears widely patent. The salivary and thyroid glands are normal in appearance. No cervical lymphadenopathy is seen. Skeletal structures: The skeletal structures are osteopenic. The calvarium appears intact. The cervical spine is maintaining noting advanced multilevel spondylosis. Orbits: The bony orbits are intact. Orbital contents are normal as visualized noting bilateral ocular lens implants. Sinuses and mastoids: The paranasal sinuses are clear. The mastoid air cells are well pneumatized. IMPRESSION: 1. There is no evidence of hemorrhage, mass effect, or acute territorial ischemia noting a motion compromised examination. 2. There is [id number] stenosis of the supraclinoid internal carotid arteries bilaterally, left greater than right. 3. Otherwise unremarkable CT angiogram of the brain. 4. There is a short segment of near complete thrombosis at the origin of the left internal carotid artery. There is likely a trace trace flow, and this has modestly worsened from the 09/12/2020 examination. The mid-distal portion of the vessel are patent. 5. Atherosclerotic plaque causes less than 50% stenosis at the origin of the right internal carotid artery. ACT 112: Negative or not required by law. Electronically signed by: Blade Willis M.D. 11/22/2023 3:53 PM Neck CTA 11/22/23 14:[address] OF THE BRAIN; CT ANGIOGRAM OF THE BRAIN; CT ANGIOGRAM OF THE NECK CLINICAL HISTORY: Change in metal status. Fall. COMPARISON STUDY: CT angiogram of the head and neck dated 09/12/2020. TECHNIQUE: Unenhanced axial CT scan of the brain is performed. Subsequently, following the IV administration of 119 of Optiray 320, CT angiogram of the head and neck was performed from the aortic arch to the vertex. Images are reviewed in the axial, sagittal, and coronal planes. 3-D MIPS images are created and assessed. IV contrast was administered without complication. All measurements were calculated based on NASCET criteria. A dose lowering technique was utilized adhering to the principles of ALARA. The examinations are compromised by motion artifact. CT DOSE: 2092.18 mGy.cm FINDINGS: Brain parenchyma: There is age-related involutional change noting mild to moderate subcortical and periventricular microangiopathic disease. 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 There is no evidence of hemorrhage, mass effect, or acute territorial ischemia noting a motion compromises examination. There is no evidence of enhancing mass lesion on the angiogram phase images. The ventricles, sulci, and cisterns are prominent secondary to involutional change. Hernandez-white matter differentiation is preserved. No extra-axial fluid collection is seen. Thoracic aorta: There is atherosclerotic calcification of the thoracic aorta. Imaged portions of the thoracic aorta are normal in caliber. The aortic arch demonstrates bovine variant anatomy. Right carotid arterial system: The right common carotid artery is widely patent, as is the right external carotid artery. There is advanced atherosclerotic plaque in the carotid bulb. This causes less than 50% stenosis of the origin of the right internal carotid artery. The mid and distal portions of the right internal carotid artery are patent. Left carotid arterial system: The left common carotid artery is widely patent. 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 This extends approximately 1.5 cm in length and there is only trace flow. There is reconstitution of flow at the level of C3. The mid and distal portions of the internal carotid artery are patent to the skull base. There is at least mild stenosis of the origin of the left external carotid artery which is patent. Vertebral arteries: The vertebral arteries are patent bilaterally noting left- sided dominance. Subclavian arteries: Widely patent bilaterally. Intracranial vasculature: There is atherosclerotic calcification of the cavernous carotid and vertebral arteries. The internal carotid arteries are patent at the skull base, as are the anterior and middle cerebral arteries bilaterally. The left A1 segment is diminutive. The vertebrobasilar system and posterior cerebral arteries are widely patent. The left vertebral artery is dominant. There is stxc-ki-tzyqvjrh stenosis of the supraclinoid internal carotid arteries, left side greater than right. No aneurysm or focal vessel cut off is seen throughout the intracranial circulation. Jugular veins: Patent bilaterally. Dural sinuses: Patent. Lung apices: Partially visualized upper lobe lung parenchyma appears clear. Soft tissues: The visualized pharyngeal soft tissues are normal in appearance noting angiographic phase technique. The oropharyngeal airway appears widely patent. The salivary and thyroid glands are normal in appearance. No cervical lymphadenopathy is seen. Skeletal structures: The skeletal structures are osteopenic. The calvarium appears intact. The cervical spine is maintaining noting advanced multilevel spondylosis. Orbits: The bony orbits are intact. Orbital contents are normal as visualized noting bilateral ocular lens implants. Sinuses and mastoids: The paranasal sinuses are clear. The mastoid air cells are well pneumatized. IMPRESSION: 1. There is no evidence of hemorrhage, mass effect, or acute territorial ischemia noting a motion compromised examination. 2. There is [id number]-[id number] stenosis of the supraclinoid internal carotid arteries bilaterally, left greater than right. 3. Otherwise unremarkable CT angiogram of the brain. 4. There is a short segment of near complete thrombosis at the origin of the left internal carotid artery. There is likely a trace trace flow, and this has modestly worsened from the 09/12/2020 examination. The mid-distal portion of the vessel are patent. 5. Atherosclerotic plaque causes less than 50% stenosis at the origin of the right internal carotid artery. ACT 112: Negative or not required by law. Electronically signed by: Blade Willis M.D. 11/22/2023 3:53 PM Abdomen/Pelvis CT 11/22/23 16:20 CT SCAN OF THE ABDOMEN AND PELVIS WITH IV CONTRAST CLINICAL HISTORY: Change in mental status. Sepsis. COMPARISON STUDY: Abdominal CT dated 04/30/2016. TECHNIQUE: Following the IV administration of 94 cc of Optiray 320, CT scan of the abdomen and pelvis is performed from the lung bases to the proximal femora. Images are reviewed in the axial, sagittal, and coronal planes. IV contrast was administered without complication. A dose lowering technique was utilized adhering to the principles of ALARA. The examination is degraded by streak artifact from the arms which could not be elevated above the abdomen. There is also motion artifact. CT DOSE: 1290.56 mGy.cm FINDINGS: Lung bases: The heart is enlarged and without pericardial effusion. The coronary arteries are densely calcified. A small hiatal hernia is noted. The lung bases are clear noting bibasilar scarring/atelectasis. Liver: The contrast-enhanced liver is normal in size, contour, and attenuation. There is no intrahepatic biliary ductal dilatation. The hepatic veins and portal veins are patent. Gallbladder: Unremarkable. Spleen: Normal in size and attenuation. Pancreas: Mildly atrophic and grossly unremarkable. Adrenal glands: Unremarkable. Kidneys: There is slight asymmetric cortical atrophy of the right kidney as compared to the left. No hydronephrosis is seen. The kidneys and ureters are filled with excreted IV contrast. The kidneys enhance symmetrically. Scattered subcentimeter cortical hypodensities likely represent cysts but are too small for definitive characterization. Abdominal vasculature: The abdominal aorta is normal in course and caliber noting advanced atherosclerotic calcification. There is at least moderate stenosis at the origin of the superior mesenteric artery. Bowel: There is rectosigmoid fecal retention and moderate constipation. No bowel obstruction is seen. There is moderate to advanced colonic diverticulosis without CT evidence of acute diverticulitis. The appendix is well-visualized and normal. There is a small duodenal diverticulum. Peritoneum: There is no intraperitoneal free air or abdominal ascites. Lymphadenopathy: None. Pelvic viscera: The bladder is decompressed around a Hernandez catheter and is filled with excreted IV contrast. There are foci of intraluminal gas which are likely related to instrumentation. The prostate gland is enlarged and heterogeneous. The bladder wall appears thickened/trabeculated indicating chronic outlet obstruction. There is a fat containing right groin hernia. Skeletal structures: The skeletal structures are osteopenic. There is a mild chronic compression deformity of L5. Moderate lumbosacral spondylosis is observed. A large hemangioma is seen in the body of L4. No lytic or blastic le sions are seen. IMPRESSION: 1. No acute infectious or inflammatory findings are identified in the abdomen or pelvis. 2. Cardiomegaly. 3. Advanced atherosclerotic change is seen throughout the abdominal aorta and its major branches. 4. Colonic diverticulosis without CT evidence of acute diverticulitis. 5. Additional findings as above. ACT 112: Negative or not required by law. Electronically signed by: Blade Willis M.D. 11/22/2023 6:30 PM Chest X-Ray 11/22/23 19:55 SINGLE VIEW CHEST CLINICAL HISTORY: Sepsis. FINDINGS: An AP, portable, semierect chest radiograph is compared to study dated 04/28/2023. The heart is enlarged noting atherosclerotic calcification of the thoracic aorta. There is pulmonary vascular congestion. Chronic interstitial thickening is similar to previous. Scarring/atelectasis is noted at the lung bases. No airspace consolidation or large pleural effusion is identified. No pneumothorax is seen. The skeletal structures are osteopenic. The bony thorax is grossly intact. IMPRESSION: Cardiomegaly with mild pulmonary vascular congestion. ACT 112: Negative or not required by law. Electronically signed by: Blade Willis M.D. 11/22/2023 10:04 PM PG Care Time/CCT Total # of Minutes Spent Total Time Spent with Patient: Total time spent is greater than 50% in coordination of care (as documented) at patient's floor/unit and/or counseling patient: Coding Level of Care Code 93869 SUB INP/OBS CARE 3/50MIN Diagnoses Sepsis A41.9 Cellulitis of leg, right L03.115 Metabolic encephalopathy G93.41 Afib I48.91 NSTEMI (non-ST elevated myocardial infarction) I21.4 Carotid stenosis I65.29 H/O: GI bleed Z87.19 Hypertension I10 H/O alcohol dependence F10.21
[2023-11-23] MEDS: ASPIRIN 300 MG SUPP PR ONE (10:57)
[2023-11-23] MEDS: PANTOprazole 40 MG in SYRINGE 0 ML IV SCH (11:21)
[2023-11-23 11:59] LABS: Troponin I High Sensitivity 479.5 pg/ml (0-20)
--- NOTE | 2023-11-23 12:03 | Pharmacy Report ---
Pharmacy PK ABX Note - Date of Service November 23, 2023 - Assessment and Plan Assessment 88 year old M receiving Vancomycin and Zosyn for treatment of pneumonia. * Day #2 of antimicrobial therapy. * Labs/Vitals: Afebrile. Leukocytosis improving. Renal fxn trending down. Procal negative. * Micro: MRSA nasal swab positive. Blood cultures pending. Plan Vancomycin * Loading dose: 1250 mg IV x 1 * Maintenance dose: 1000 mg IV every 24 hours * Regimen is predicted to achieve target AUC/YAZMIN of 400-600 mg/L.hr * Given long dosing interval, will not order level at this time Zosyn * 4.5 g IV every 8 hours Pharmacy will continue to follow and will adjust dose/frequency as necessary. Thank you. Pharmacy has transitioned to AUC monitoring for vancomycin. AUC/YAZMIN is the preferred PK/PD target and is associated with decreased risk of nephrotoxicity compared to traditional trough targets.
[2023-11-23 12:29] LABS: D Dimer 2320 ug/L FEU (0-500)
--- NOTE | 2023-11-23 12:48 | Cardiology Consultation ---
Date of Consultation November 23, 2023 Assessment & Plan (1) NSTEMI (non-ST elevated myocardial infarction): (2) Paroxysmal A-fib: (3) Murmur, cardiac: (4) Carotid stenosis: (5) Metabolic encephalopathy: (6) Acute kidney injury: Plan Would treat him conservatively at this time until we see what happens with his mental state. I am concerned that his carotid disease is severe and significant. Would put a consultation into vascular surgery for their opinion although I suspect that they will feel he is not a surgical candidate based on how debilitated he is. I would start him on IV heparin for now. Would maintain on low-dose beta-madina as well for now. an echo has been ordered and I will review that. His last echo was from 2021 History of Present Illness Reason for Consultation: Atrial fibrillation abnormal enzymes Requesting Physician[facility] Attending Physician: Vince Villa MD History of Present Illness Mr. Joshua Arriaga is an 88-year-old elderly gentleman who lives on his own but has caretakers from [facility] come in and assist him 1 hour/day. There is very limited medical information available on this gentleman. He was found on the floor yesterday by one of the caretakers and was brought to the hospital. He was found to have atrial fibrillation and a whole host of other medical problems. His cardiac enzymes were elevated. Prior CTA of his carotids shows severe left internal carotid stenosis as well as possible vertebral disease. There is 50% stenosis on the right. He underwent a CT noncontrast of his head last night which was apparently negative for new stroke. Initial EKG did show atrial fibrillation with ST-T wave changes. Subsequent EKG has shown normal sinus rhythm with a prolonged NE interval. The patient is unable to provide any other accurate information. Allergies Allergy/AdvReac Type Severity Reaction Status Date / Time No Known Allergies Allergy Verified 11/22/23 17:05 Home Medications Medication Instructions Recorded Confirmed Type No Known Home Medications 11/22/23 11/22/23 History Patient History Medical History Influenza A Tinea unguium Cellulitis of leg, right Gastric ulcer GI bleed History of CVA (cerebrovascular accident) Paroxysmal A-fib Elevated CK Hyperglycemia Insomnia Hypothyroidism Anxiety Alcohol abuse Hypertensive urgency Surgical History History of colonoscopy History of tonsillectomy History of cataract surgery Family History Mother , age 90 of uncertain causes. Anxiety Father , age 55 of pulmonary disease and alcoholism Lung disease Sister Kidney stone Denies family history of Ovarian cancer Prostate cancer Myocardial infarction Breast cancer Colorectal cancer Social History Smoking Status: Unknown if ever smoked Tobacco Type: Cigarettes Age Started Using Tobacco: 20; Age Quit Using Tobacco: 60; Cigarettes Per Day: social smoker, off and on; Second Hand Exposure: No; Do You Dip or Chew Tobacco: No; Hx Alcohol Use: No Hx Substance Use: No Preferred Language: Peruvian Communication Ability: Impaired Visual Impairment: No Limitations Hearing Ability: Normal 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 Making 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 Required: No Beliefs That Will Affect Care: None marital status: Current Living Situation: Alone Current Living Situation Comment: Lives alone with spouse who is WCB current occupational status: retired 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 Other Information That Helps Us Care for You: No Feels Safe at Home: Declines to Answer Childhood Exposure to Second-Hand Smoke: Yes Diet: regular Dental Care, Regularly: No Physical Activity Frequency: Does not Exercise Seatbelt Use: always Sunscreen Use: No Assistive Devices: Glasses Review of Systems Review of Systems: All systems reviewed & are unremarkable except as noted in HPI & below Physical Exam Physical Exam: Appears elderly extremely debilitated is only able to respond his name Neck: Carotid bruit noted bilaterally Respiratory: Decreased breath sounds bilaterally Cardiovascular: Heart is regular at this time there is a systolic grade 2-3 murmur noted throughout the precordium and louder at the apex There are severe chronic skin changes on his legs and severe onychomycosis of his toenails Results & Data Vital Signs (Past 12 Hours) Vital Signs Temp Pulse Pulse Resp BP Pulse Ox O2 Del Method 11/23/23 11:42 36.6 C 85 19 174/75 H 91 Room Air 11/23/23 08:00 95 H 11/23/23 07:47 36.9 C 89 20 165/91 H 97 Nasal Cannula 11/23/23 00:56 36.9 C 109 H 20 162/89 H 93 BiPAP O2 Flow Rate 11/23/23 11:42 11/23/23 08:00 11/23/23 07:47 2 11/23/23 00:56 Laboratory Results Abnormal lab results 11/22/23 11/22/23 11/22/23 Range/Units 14:50 14:52 14:57 WBC 17.66 H (4.8-10.8) K/ul RBC 4.55 L (4.70-6.10) M/uL Hgb (14.0-18.0) g/dl Hct (42.0-52.0) % MCHC (32.0-36.0) g/dL RDW Std Deviation 50.6 H (36.4-46.3) fL RDW Coeff of Randall 14.8 H (11.5-14.5) % MPV (9.4-12.4) fL Neut # (Auto) 14.72 H (1.40-6.50) K/uL Lymph # (Auto) 1.15 L (1.20-3.40) K/uL Pinal # (Auto) 1.25 H (0.11-0.59) K/uL Immature Gran # (Auto) 0.30 H (0.01-0.20) K/uL D-Dimer (0-500) ug/L FEU POC Total CO2 20 L (24-31) mmol/L Anion Gap 15 H (3-11) Glucose 180 H (70-99(Fasting)) mg/dl POC Glucose (other) 178 H (70-99) mg/dl Lactate 6.3 H* (0.4-2.0) mmol/L Calcium (8.6-10.3) mg/dl POC Ioniz Calcium Kitty 1.09 L (1.12-1.32) mmol/l Troponin I High Sens 171.0 H* (0-20) pg/ml Urine pH (4.5-7.5) Urine Protein (Negative) Urine Blood (Negative) Urine RBC (Auto) (0-2) /hpf Nasal Screen MRSA (PCR) (Negative) 11/22/23 11/22/23 11/22/23 Range/Units 17:35 20:05 23:25 WBC (4.8-10.8) K/ul RBC (4.70-6.10) M/uL Hgb (14.0-18.0) g/dl Hct (42.0-52.0) % MCHC (32.0-36.0) g/dL RDW Std Deviation (36.4-46.3) fL RDW Coeff of Randall (11.5-14.5) % MPV (9.4-12.4) fL Neut # (Auto) (1.40-6.50) K/uL Lymph # (Auto) (1.20-3.40) K/uL Pinal # (Auto) (0.11-0.59) K/uL Immature Gran # (Auto) (0.01-0.20) K/uL D-Dimer (0-500) ug/L FEU POC Total CO2 (24-31) mmol/L Anion Gap (3-11) Glucose (70-99(Fasting)) mg/dl POC Glucose (other) (70-99) mg/dl Lactate 3.0 H* 3.0 H* (0.4-2.0) mmol/L Calcium (8.6-10.3) mg/dl POC Ioniz Calcium Kitty (1.12-1.32) mmol/l Troponin I High Sens 590.1 H* D (0-20) pg/ml Urine pH (4.5-7.5) Urine Protein (Negative) Urine Blood (Negative) Urine RBC (Auto) (0-2) /hpf Nasal Screen MRSA (PCR) (Negative) 11/22/23 11/23/23 11/23/23 Range/Units Unknown 05:46 10:41 WBC 13.32 H (4.8-10.8) K/ul RBC 4.13 L (4.70-6.10) M/uL Hgb 13.8 L (14.0-18.0) g/dl Hct 38.2 L (42.0-52.0) % MCHC 36.1 H (32.0-36.0) g/dL RDW Std Deviation 49.4 H (36.4-46.3) fL RDW Coeff of Randall 14.8 H (11.5-14.5) % MPV 9.2 L (9.4-12.4) fL Neut # (Auto) 11.18 H (1.40-6.50) K/uL Lymph # (Auto) 0.60 L (1.20-3.40) K/uL Pinal # (Auto) 1.38 H (0.11-0.59) K/uL Immature Gran # (Auto) (0.01-0.20) K/uL D-Dimer 2320 H* (0-500) ug/L FEU POC Total CO2 (24-31) mmol/L Anion Gap (3-11) Glucose 120 H (70-99(Fasting)) mg/dl POC Glucose (other) (70-99) mg/dl Lactate (0.4-2.0) mmol/L Calcium 8.5 L (8.6-10.3) mg/dl POC Ioniz Calcium Kitty (1.12-1.32) mmol/l Troponin I High Sens 805.2 H* D (0-20) pg/ml Urine pH 8.0 H (4.5-7.5) Urine Protein 1+ H (Negative) Urine Blood 2+ H (Negative) Urine RBC (Auto) 3-5 H (0-2) /hpf Nasal Screen MRSA (PCR) Positive A (Negative) 11/23/23 Range/Units 11:18 WBC (4.8-10.8) K/ul RBC (4.70-6.10) M/uL Hgb (14.0-18.0) g/dl Hct (42.0-52.0) % MCHC (32.0-36.0) g/dL RDW Std Deviation (36.4-46.3) fL RDW Coeff of Randall (11.5-14.5) % MPV (9.4-12.4) fL Neut # (Auto) (1.40-6.50) K/uL Lymph # (Auto) (1.20-3.40) K/uL Pinal # (Auto) (0.11-0.59) K/uL Immature Gran # (Auto) (0.01-0.20) K/uL D-Dimer (0-500) ug/L FEU POC Total CO2 (24-31) mmol/L Anion Gap (3-11) Glucose (70-99(Fasting)) mg/dl POC Glucose (other) (70-99) mg/dl Lactate (0.4-2.0) mmol/L Calcium (8.6-10.3) mg/dl POC Ioniz Calcium Kitty (1.12-1.32) mmol/l Troponin I High Sens 479.5 H* D (0-20) pg/ml Urine pH (4.5-7.5) Urine Protein (Negative) Urine Blood (Negative) Urine RBC (Auto) (0-2) /hpf Nasal Screen MRSA (PCR) (Negative)
[2023-11-23] MEDS ORDERED: Heparin IV Adult Wt-Based Low-Dose *NO* INITIAL Bolus Protocol IV STA (12:53)
--- NOTE | 2023-11-23 13:09 | XRay Report ---
BONY ORBITS 3 VIEWS CLINICAL HISTORY: MRI clearance. FINDINGS: 3 views of the bony orbits are obtained. No prior studies are available for comparison at t he time of dictation. There is no radiodense/metallic foreign body seen in the region of the bony orb its. The bony orbits are intact as imaged. The visualized paranasal sinuses and the mastoid air cells appear clear. The imaged calvarium appears intact. IMPRESSION: There is no radiodense/metallic foreign body seen in the region of the bony orbits. ACT 112: Negative or not required by law. Electronically signed by: Blade Willis M.D. 11/23/2023 1:08 PM
[2023-11-23] MEDS ORDERED: POTASSIUM CHLORIDE CRTAB 20 MEQ TABCR PO STA (13:19)
--- NOTE | 2023-11-23 13:24 | Ultrasound Report ---
ULTRASOUND BILATERAL LOWER EXTREMITY VENOUS CLINICAL HISTORY: Swelling and erythema. COMPARISON STUDY: Bilateral lower extremity venous ultrasound dated 05/18/2021 TECHNIQUE: Real-time, grayscale, and color Doppler sonography of the deep veins of the right and left lower extremity was performed from the inguinal crease to the calf. Compression and augmentation wer e utilized. FINDINGS: There is no sonographic evidence of deep venous thrombosis identified in the right or left lower extremity. The common femoral, superficial femoral, and popliteal veins are patent and normally compressible bilaterally. The greater saphenous vein and the profunda femoris vein at the junction w ith the common femoral vein are clear in both legs. The visualized calf veins are patent bilaterally. Soft tissue edema is noted in the right calf. IMPRESSION: There is no sonographic evidence of deep venous thrombosis identified in the right or lef t lower extremity. ACT 112: Negative or not required by law. Electronically signed by: Blade Willis M.D. 11/23/2023 1:23 PM
[2023-11-23] MEDS: OPTIRAY 320 100ml IV ONE (13:29)
--- NOTE | 2023-11-23 13:47 | XRay Report ---
KUB CLINICAL HISTORY: MRI clearance. FINDINGS: 2 AP supine abdominal radiographs are correlated with abdominal CT dated 11/22/2023. There i s a nonobstructed abdominal bowel gas pattern. No evidence of intraperitoneal free air is seen on the se supine images. There are no abnormal abdominal calcifications. No radiodense/metallic foreign body is seen. Excreted IV contrast is seen within the renal collecting systems and bladder. The skeletal structures are osteopenic and appear intact. There is moderate lumbosacral spondylosis. The heart is enlarged. Airspace opacities are noted at the lung bases. IMPRESSION: 1. No acute abnormality is identified. 2. No radiodense/metallic foreign body is seen. 3. Airspace opacities are seen at the lung bases. Electronically signed by: Blade Willis M.D. 11/23/2023 1:46 PM
--- NOTE | 2023-11-23 14:08 | CT Scan Report ---
CT ANGIOGRAM OF THE CHEST CLINICAL HISTORY: Sepsis. Elevated d-dimer. COMPARISON STUDY: Chest x-ray dated 11/22/2023. Abdominal CT dated 11/22/2023. TECHNIQUE: Following the IV administration of 118 cc of Optiray 320, CT angiogram of the chest was pe rformed from the upper abdomen to the thoracic inlet utilizing the pulmonary embolus protocol. Images are reviewed in the axial, sagittal, and coronal planes. 3-D MIPS images are created and assessed. I V contrast was administered without complication. A dose lowering technique was utilized adhering to the principles of ALARA. The examination is compromised by motion artifact, as well as by streak art ifact from the arms which could not be elevated above the chest. CT DOSE: 873.9 mGy.cm FINDINGS: Thyroid: Imaged portions of the thyroid gland are normal in size and attenuation. Thoracic aorta: There is atherosclerotic calcification of the thoracic aorta, which is normal in derek johnson and demonstrates bovine variant arch anatomy. No dissection is seen. Pulmonary vasculature: The pulmonary trunk is normal in caliber. There are no filling defects identif ied in main, lobar, or proximal segmental pulmonary branches to suggest pulmonary embolus. Evaluation of the segmental and subsegmental branches is significantly degraded by motion artifact. Heart: The heart is enlarged and without pericardial effusion. The coronary arteries are densely calc ified. Lungs and pleural spaces: Evaluation of the lung parenchyma is significantly compromised by motion ar tifact. Mild intralobular septal thickening is observed. There is airspace consolidation seen through out the right upper lobe. There are small right and trace left pleural effusions with dependent conso lidation. Pleural effusions and dependent consolidation is new from yesterday's abdominal CT. The tra stevie and central airways appear clear. Mediastinum: There are mildly enlarged mediastinal lymph nodes. A precarinal node measures 1.5 cm el rt axis. Kaila: Clear. Axillae: There is no axillary lymphadenopathy. Upper abdomen: Partially visualized upper abdominal viscera is within normal limits. Skeletal structures: The skeletal structures are osteopenic. Degenerative change and kyphoscoliosis i s noted in the thoracic spine. No lytic or blastic bony lesions are seen. IMPRESSION: 1. Streak and motion compromised examination. 2. There is no evidence of central pulmonary embolus in the main, lobar, or proximal segmental pulmon chiquita arteries. 3. There is patchy airspace consolidation throughout the right upper lobe, typical for pneumonia/asp iration pneumonitis. Clinical correlation will be required and radiographic follow-up to resolution i s recommended. 4. Small right and trace left pleural effusions with dependent consolidation. This is new from yester day's abdominal CT. 5. Cardiomegaly with mild intralobular septal thickening. This suggests fluid overload/congestive fabiana nge. Correlate clinically. 6. Additional findings as above. ACT 112: Negative or not required by law. Electronically signed by: Blade Willis M.D. 11/23/2023 2:06 PM
[2023-11-23] MEDS ORDERED: Nursing to Pharmacy Communication SCH (14:15)
[2023-11-23] MEDS: HEPARIN SODIUM/DEXTROSE 25,000 UNITS/500 ML BAG IV SCH (14:49)
[2023-11-23] MEDS: amLODIPine BESYLATE 5 MG TAB PO SCH (14:50)
[2023-11-23] MEDS: POTASSIUM CHLORIDE 10 MEQ TABCR PO STA (14:50)
[2023-11-23 14:52] LABS: Magnesium 1.8 mg/dl (1.7-2.4)
[2023-11-23] MEDS: LORazepam 2 MG/1 ML VIAL IV PRN (16:07)
--- NOTE | 2023-11-23 16:41 | Electrocardiogram Report ---
Test Reason : Blood Pressure : */* mmHG Vent. Rate : 116 BPM Atrial Rate : * BPM P-R Int : * ms QRS Dur : 100 ms QT Int : 344 ms P-R-T Axes : * 9 47 degrees QTcB Int : 478 ms Atrial fibrillation with rapid ventricular response RSR' or QR pattern in V1 suggests right ventricular conduction delay Nonspecific ST abnormality Abnormal ECG When compared with ECG of 16-Apr-2023 11:04, (unconfirmed) Atrial fibrillation has replaced Sinus rhythm RSR' or QR pattern in V1 suggests right ventricular conduction delay has replaced Left bundle branch block ST-T wave changes are new Confirmed by Tia Davison (Javier) on 11/23/2023 4:40:39 PM Referred By: REFERRED SELF Confirmed By: Tia Davison
--- NOTE | 2023-11-23 17:02 | Electrocardiogram Report ---
Test Reason : Blood Pressure : */* mmHG Vent. Rate : 90 BPM Atrial Rate : 312 BPM P-R Int : * ms QRS Dur : 94 ms QT Int : 336 ms P-R-T Axes : * 44 99 degrees QTcB Int : 411 ms Poor data quality, interpretation may be adversely affected Suspected Normal sinus Rhythm with first degree AV block Incomplete right bundle branch block Septal infarct , age undetermined Abnormal ECG When compared with ECG of 22-Nov-2023 15:27, (unconfirmed) NSR has replaced Atrial fibrillation Septal infarct is now Present T wave inversion now evident in Anterior leads Confirmed by Tia Davison (Javier) on 11/23/2023 5:02:09 PM Referred By: REFERRED SELF Confirmed By: Tia Davison
[2023-11-23] MEDS: GADOBUTROL 65ML VIAL IV ONE (17:04)
--- NOTE | 2023-11-23 17:28 | Magnetic Resonance Report ---
MRI OF THE BRAIN COMBO CLINICAL HISTORY: Strokelike symptoms. COMPARISON STUDY: CT of the brain dated 11/14/2023. MRI of the brain dated 09/15/2020. TECHNIQUE: MRI of the brain was performed utilizing various T1 and T2-weighted sequences in the axial , sagittal, and coronal planes. Contrast-enhanced sequences were acquired following the administratio n of 8 cc of Gadavist. The examination is severely degraded by motion artifact. FINDINGS: Brain parenchyma: There is age-related involutional change that the mild to moderate subcortical and periventricular microangiopathic disease. There is no evidence hemorrhage or mass effect. There are s mall chronic left posterior parieto-occipital infarcts. There is no restricted diffusion typical for acute ischemia. No evidence of enhancing mass lesion is identified on the postcontrast images. Hernandez-w lucas matter differentiation is preserved. No extra-axial fluid collection is seen. The cerebellar ton sils are normal in configuration. Ventricles, sulci, and cisterns: Prominent secondary to involutional change. Pituitary and sella: Partially empty sella is incidentally noted. Intracranial vasculature: Normal flow voids are maintained at the skull base. Orbits: The bony orbits are grossly intact. Orbital contents are normal in appearance noting bilatera l ocular lens implants. Sinuses and mastoids: There is moderate mucosal thickening ethmoid sinuses. Mild mucosal thickening s een in the right frontal sinus. The mastoid air cells appear clear. Calvarium: Unremarkable. Cervical cord: Partially visualized cervical spinal cord is normal in morphology and signal intensity . IMPRESSION: No acute intracranial abnormality is identified noting a significantly motion compromised examination. ACT 112: Negative or not required by law. Electronically signed by: Blade Willis M.D. 11/23/2023 5:26 PM
[2023-11-23] MEDS: carvediloL 3.125 MG TAB PO ONE (18:07)
[2023-11-23 18:26] LABS: Adenovirus PCR Not Detected (NotDetected); Bordetella parapertussis PCR Not Detected (NotDetected); Bordetella pertussis PCR Not Detected (NotDetected); Chlamydia pneumoniae PCR Not Detected (NotDetected); Coronavirus 229E PCR Not Detected (NotDetected); Coronavirus CoV-2 (COVID19)PCR Not Detected (NotDetected); Coronavirus HKU1 PCR Not Detected (NotDetected); Coronavirus NL63 PCR Not Detected (NotDetected); Coronavirus OC43PCR Not Detected (NotDetected); Human Metapneumovirus PCR Not Detected (NotDetected); Influenza A PCR Not Detected (NotDetected); Influenza B PCR Not Detected (NotDetected); Mycoplasma pneumoniae PCR Not Detected (NotDetected); Parainfluenza Virus 1 PCR Not Detected (NotDetected); Parainfluenza Virus 2 PCR Not Detected (NotDetected); Parainfluenza Virus 3 PCR Not Detected (NotDetected); Parainfluenza Virus 4 PCR Not Detected (NotDetected); Respiratory Syncytial VirusPCR Not Detected (NotDetected); Rhinovirus/Enterovirus PCR Not Detected (NotDetected)
[2023-11-23] MEDS: ACETAMINOPHEN 325 MG TAB PO PRN (19:40)
[2023-11-23] MEDS: ACETAMINOPHEN 1,000 MG/100 ML VIAL IV PRN (20:07)
[2023-11-23 20:35] LABS: Hemoglobin 14.2 g/dl (14.0-18.0); Mean Corpuscular Hemoglobin 33.3 pg (25.0-34.0); Mean Corpuscular Hgb Conc 35.5 g/dL (32.0-36.0); Mean Corpuscular Volume 93.7 fL (80.0-100.0); Mean Platelet Volume 9.5 fL (9.4-12.4); Platelet Count 186 K/uL (130-400); RDW Standard Deviation 50.4 fL (36.4-46.3); Red Blood Count 4.27 M/uL (4.70-6.10); White Blood Count 16.41 K/ul (4.8-10.8)
[2023-11-23 20:53] LABS: BUN Creatinine Ratio 11.5 (10-20); Calcium 7.9 mg/dl (8.6-10.3); Creatinine Clr Calc Pharmacy 53.1 ml/min; Est GFR (Non-African American) 63.8 ml/min; Potassium 3.6 mmol/L (3.5-5.1)
[2023-11-23 21:04] LABS: ANTI-Xa, UFH(UnfractionatedHep 0.32 IU/ml (0.3-0.7)
[2023-11-23 21:32] LABS: C Reactive Protein 13.63 mg/dl (0-0.5)
[2023-11-23] MEDS ORDERED: VANCOMYCIN CONSULT ACTIVE PRN (21:54)
[2023-11-23] MEDS: VANCOMYCIN HCL 1,500 MG in SODIUM CHLORIDE 0.9% 500 ML IV SCH (22:50)
[2023-11-23] MEDS: HYDROmorphone INJ 0.5 MG/0.5 ML SYR IV STA (22:56)
--- NOTE | 2023-11-23 23:27 | Communication Note ---
Date of Service: November 23, 2023 Joshua is a 88M w/ PMH of paroxysmal A fib, VA, HTN, hypothyroidism, prior GIB, vertebral artery stenosis, mitral regurgitation, and carotid stenosis who presented for sepsis 11/22/23 presumed due to pneumonia. Contacted by nursing at 1930 regarding rising BP, tachycardia, and new fever (39C), as patient had not been febrile previously during admission. At this time, patient was being managed for pneumonia vs cellulitis w/ IV Zosyn (single dose Vancomycin received, but was subsequently discontinued). Patient's O2 requirements rising. Dopplers obtained during day shift negative for DVT, CTA negative for PE - though indicative of pneumonia and congestive change/fluid overload. Patient remains non-toxic but acutely uncomfortable/restless on examination. Lungs w/ diminished air movement at bases, no wheezing, rhonchi, or rales. Vitals indicative of hypertension, tachycardia, tachypnea, fever, and increasing O2 demand. AM labs reviewed, showing downtrending lactate and WBC count. Positive MRSA nares from 11/21. Assessment/Plan Given evidence of pulmonary consolidation in RUL, new fever, and increasing O2 requirement, concern exists for pneumonia. DVT/PE ruled out with CTA. 1. Tylenol IV provided d/t elevated temperature - subsequent improvement in BP, HR, Temp, and RR w/in 30 minutes. 2. Obtained repeat CBC, CMP, CRP, Lactate, BNP, and Procal - WBC rising, CRP elevated, lactate wnl, BNP rising, and Procal elevated. Blood cultures remain pending. 3. Given positive MRSA nares, Procal elevation, and rising WBC w/ new fever - Vancomycin restarted, Zosyn continued 4. Given rising BNP, pleural effusions and congestive changes on CTA w/ rising O2 requirement (and normal lactate) - IVFs discontinued, will hold additional diuretics at this time 5. Patient w/ increasing restlessness/discomfort - provided Dilaudid 0.25 IV in addition to Tylenol as above 6. Troponin remains elevated, asymptomatic. Continue to trend to peak. BP remains stable, though elevated. 7. Patient required placement of soft mits due to agitation w/ oxygen supplementation and IVs Resident Activity Tracking Resident Involvement: Resident Care Provided Care Provided: Adult [facility] Medicine
[2023-11-24 07:54] LABS: Basophils # (auto) 0.07 K/uL (0.00-0.20); Basophils % (auto) 0.4 %; Eosinophils # (auto) 0.01 K/uL (0.00-0.50); Eosinophils % (auto) 0.1 %; Hematocrit (blood only) 39.8 % (42.0-52.0); Hemoglobin 13.8 g/dl (14.0-18.0); Immature Granulocytes # (auto) 0.41 K/uL (0.01-0.20); Immature Granulocytes % (auto) 2.5 %; Lymphocytes # (auto) 0.42 K/uL (1.20-3.40); Lymphocytes % (auto) 2.6 %; Mean Corpuscular Hemoglobin 32.5 pg (25.0-34.0); Mean Corpuscular Hgb Conc 34.7 g/dL (32.0-36.0); Mean Corpuscular Volume 93.6 fL (80.0-100.0); Mean Platelet Volume 9.3 fL (9.4-12.4); Monocytes # (auto) 1.14 K/uL (0.11-0.59); Monocytes % (auto) 7.1 %; Neutrophils # (auto) 14.08 K/uL (1.40-6.50); Neutrophils % (auto) 87.3 %; Platelet Count 185 K/uL (130-400); RDW Coefficient of Variation 15.2 % (11.5-14.5); RDW Standard Deviation 51.3 fL (36.4-46.3); Red Blood Count 4.25 M/uL (4.70-6.10); White Blood Count 16.13 K/ul (4.8-10.8)
[2023-11-24] MEDS: ASPIRIN 81 MG ECTAB PO SCH (07:54)
[2023-11-24] MEDS: carvediloL 3.125 MG TAB PO SCH (07:54)
[2023-11-24] MEDS: CEROVITE ADV FORMULA TAB PO SCH (07:54)
[2023-11-24] MEDS: PANTOprazole 40 MG in SYRINGE 0 ML IV SCH (07:58)
[2023-11-24 08:11] LABS: Alanine Aminotransferase 34 U/L (7-52); Albumin Globulin Ratio 1.2 (0.9-2); Albumin Level 3.4 gm/dl (3.4-5.0); Alkaline Phosphatase 68 U/L (34-104); Anion Gap 8 (3-11); BUN Creatinine Ratio 12.8 (10-20); Blood Urea Nitrogen 14 mg/dl (6-23); Carbon Dioxide 26 mmol/L (21-32); Chloride 100 mmol/L (98-107); Chol HDL Ratio 2.9 (0-5); Cholesterol 123 mg/dl (0-200); Creatinine Clr Calc Pharmacy 46.8 ml/min; Est GFR (African American) 69.9 ml/min; Est GFR (Non-African American) 60.3 ml/min; Globulin 2.8 gm/dl (2.5-4.0); Glucose 125 mg/dl (70-99(Fasting)); HDL Cholesterol 43 mg/dl; LDL Cholesterol Calculated 65 mg/dl; Magnesium 1.7 mg/dl (1.7-2.4); Sodium 134 mmol/L (136-145); Total Protein 6.2 gm/dl (6.0-8.3); Triglycerides 77 mg/dl (0-150); Troponin I High Sensitivity 989.7 pg/ml (0-20); VLDL Cholesterol 15 mg/dl (0-30)
[2023-11-24 08:15] LABS: ANTI-Xa, UFH(UnfractionatedHep 0.37 IU/ml (0.3-0.7)
--- NOTE | 2023-11-24 08:57 | Cardiology Progress Note ---
Date of Service November 24, 2023 Assessment & Plan (1) NSTEMI (non-ST elevated myocardial infarction): (2) Paroxysmal A-fib: (3) Murmur, cardiac: (4) Carotid stenosis: (5) Metabolic encephalopathy: (6) Acute kidney injury: Plan Mr. Arriaga denies any chest pain or shortness of breath. His troponin peaked at 1100 and is trending down. Given his lack of anginal symptoms and current sepsis with delirium, he is being treated conservatively. He is currently on a heparin drip. He is appropriately on Coreg. His echo is without WMA, demonstrates normal LVF with elevated RVSP. He appears fluid overload with significant rise in his BNP, small pleural effusions on CT and hypoxia. His IVF has been stopped. I will order doses of IV furosemide for this morning and afternoon and we can reassess tomorrow. Strict Is&Os and daily weights. His blood pressure will hopefully start trending down with diuresis. He is in and out of afib on the monitor with frequent PVCs. He is on anticoagulation and beta madina. Rate is acceptable. Given his history of GI bleed, agree with neurology that a GI consult to discuss risk of initiating anticoagulation at discharge would be helpful. He has a consult in for vascular surgery for his carotid disease. We are still awaiting previous records. Admission and Anticipated Discharge Date Admission Date: November 22, 2023 Subjective Mr. Arriaga became more hypoxic and febrile overnight. His BNP is trending upward. He is requiring more O2. This morning he cannot open his eyes and they appear to be a bit stuck shut with exudate with the right eye swollen. Per COMPLAINTS COORDINATOR at bedside, they had been applying warm compresses to try and help him get them open. He does respond to questions and is at least oriented to person. He has been in and out of afib on the monitor and is having a number of PVCs. Review of Systems Review of Systems: All systems reviewed & are unremarkable except as noted in HPI & below Physical Exam Constitutional: WD/WN, vitals as above Respiratory: normal respiratory effort, lungs clear to auscultation Cardiovascular: Rate/Rhythm: + abnormal rate and + abnormal rhythm Heart Sounds: no murmur Extremities: + edema Skin: reddened lower extremities Neurologic: moves all extremities and awake Psychiatric: Orientation: oriented to person Results & Data Vital Signs (Past 12 Hours) Vital Signs Temp Pulse Pulse Resp BP BP BP 11/24/23 08:37 93 H 11/24/23 08:22 11/24/23 07:03 36.9 C 99 H 18 190/85 H 11/24/23 03:31 36.9 C 70 22 116/86 11/23/23 23:26 11/23/23 22:32 37.6 C H 90 24 185/81 H 11/23/23 21:54 78 11/23/23 21:21 37 C 84 22 161/56 H Pulse Ox O2 Del Method O2 Flow Rate 11/24/23 08:37 11/24/23 08:22 Oxymask 6 11/24/23 07:03 97 Oxymask 6 11/24/23 03:31 94 Oxymask 8 11/23/23 23:26 89 L Nasal Cannula 5 11/23/23 22:32 91 Nasal Cannula 4 11/23/23 21:54 11/23/23 21:21 94 Nasal Cannula 4
[2023-11-24 09:22] LABS: Potassium 3.5 mmol/L (3.5-5.1)
[2023-11-24 09:24] LABS: Estimated Average Glucose 105 mg/dl; Hemoglobin A1C 5.3 % (4.5-5.6)
--- NOTE | 2023-11-24 09:56 | Hospitalist Progress Note ---
Date of Service November 24, 2023 Assessment & Plan (1) Sepsis: (2) Metabolic encephalopathy: (3) Afib: (4) NSTEMI (non-ST elevated myocardial infarction): (5) Carotid stenosis: (6) H/O: GI bleed: (7) Hypertension: (8) H/O alcohol dependence: Plan 88-year-old male with past medical history of left carotid artery stenosis, history of GI bleed secondary to ulcer, history of alcohol use disorder, hypertension who was found on the floor in his house by his caregiver and was br ought to the hospital. Patient was found to be obtunded and septic and also found to be in A-fib with RVR #Sepsis present on admission, source likely pneumonia, likely aspiration pneumon ia #Suspected aspiration pneumonia #Acute metabolic encephalopathy Lactic acid levels have EYES: Pupils round equal and react to light, extraocular movements full, no injection. MRSA screen is positive Blood cultures from 11/22/2023 show no growth at 24 hours Respiratory bio fire is negative Procalcitonin elevated CT of the chest from 11/23/2023 shows no evidence of PE and showed some patchy airspace consolidation throughout the right upper lobe typical for pneumonia/aspiration pneumonitis. Continue IV Zosyn plus IV vancomycin (day 2) White count is elevated, monitor white count CT of the head showed no evidence of hemorrhage, mass effect and showed mild to moderate stenosis of the left supraclinoid internal carotid arteries bilaterally with left greater than right and near complete thrombosis of the origin of the left internal carotid artery. MRI of the brain from 11/23/2023 showed no acute intracranial abnormality. It did show some small chronic left posterior parieto-occipital infarcts. [facility]/PT/OT consults Neurology saw the patient and at this point have not recommended any LP TSH is 2.576 B12 is 1004 Neurology is recommending C-spine x-ray #Atrial fibrillation #NSTEMI #Essential hypertension #Carotid stenosis #Small chronic left posterior parieto-occipital infarcts #Acute on chronic diastolic congestive heart failure with preserved ejection fraction of 65% CT of the neck shows mild to moderate stenosis of the supraclinoid internal carotid arteries bilaterally, left greater than right. There is a short segment of near complete thrombosis of the origin of the left internal carotid artery. MRI of the brain from 11/23/2023 showed no acute intracranial abnormality. It did show some small chronic left posterior parieto-occipital infarcts. Echo from 11/23/2023 shows moderate concentric left ventricular hypertrophy, left ventricular is hyperdynamic, EF is 65 to 70% with grade 1 diastolic dysfunction. Mild tricuspid regurgitation, right ventricular systolic pressure elevated at 40 to 50 mmHg TSH is 2.576 Troponin peaked at 1288 A1c is 5.3 Triglycerides are 77 LDL is 65 HDL is 43 Total cholesterol is 123 Cardiology saw the patient and recommended heparin infusion for now along with aspirin Patient is on a beta-madina carvedilol: Increased to 6.25 mg twice daily Continue amlodipine 5 mg p.o. daily Patient has been started on Lasix IV by cardiology I/O monitoring Daily weights Conservative management for NSTEMI per cardiology for now Vascular surgery has been consulted per cardiology recommendations: Awaiting wireless sales consultant recommendations Neurology and cardiology both feel that patient will need to be on anticoagulation but given history of GI bleed will need clearance from GI for long-term anticoagulation versus antiplatelet therapy with Plavix GI consulted: Awaiting wireless sales consultant recommendations Continue telemetry monitoring #Bilateral lower extremity chronic skin changes with suspected cellulitis Erythema has improved after IV antibiotics Bilateral lower extremity Dopplers were negative for DVT D-dimer was elevated at 2320 CTA chest did not show any evidence of PE #History of GI bleed secondary to gastric ulcer in 2021 Patient was found to have a GI bleed in the setting of NSAID use in 2021. He had an EGD which showed gastric ulcer with visible vessel treated with APC and clipped Currently no evidence of bleeding H&H is stable Avoid all NSAIDs Continue IV Protonix Awaiting GI consult and recommendations for clearance for use of anticoagulation/antiplatelet #History of alcohol use disorder Continue multivitamin plus thiamine plus folic acid CODE STATUS: DNR/DNI DVT prophylaxis: Bilateral SCDs Care plan discussed with nursing staff. Voicemail message left for patient's son Jamie ([phone]) to update on the phone Admission and Anticipated Discharge Date Admission Date: November 22, 2023 Subjective Patient seen and examined Overnight events reviewed He was placed in mitt restraints overnight Mentation has improved this morning He is much more awake and he is aware that he is in the hospital He was able to take his pills with nursing staff He currently denies any chest pain or shortness of breath Patient tells me he is hungry Nursing staff to provide feeding assistance Review of Systems Review of Systems: As per HPI Physical Exam Physical Exam: General: No acute distress Psych: Awake and oriented to self. He is aware of being in the hospital HEENT: Anicteric sclera, dry oral mucosa CVS: Irregular rate and rhythm, systolic murmur audible Lungs: Bilateral air entry with diminished breath sounds, no wheezing noted Abdomen: Soft, nontender, no rebound, no guarding Ext: Bilateral lower extremity edema with chronic skin changes noted with erythema of bilateral lower extremity right greater than left : Hernandez catheter in place Results & Data Results & Data Vital Signs (Past 12 Hours) Vital Signs Temp Pulse Pulse Resp BP BP Pulse Ox 11/24/23 08:37 93 H 11/24/23 08:22 11/24/23 07:03 36.9 C 99 H 18 190/85 H 97 11/24/23 03:31 36.9 C 70 22 116/86 94 11/23/23 23:26 89 L 11/23/23 22:32 37.6 C H 90 24 185/81 H 91 O2 Del Method O2 Flow Rate 11/24/23 08:37 11/24/23 08:22 Oxymask 6 11/24/23 07:03 Oxymask 6 11/24/23 03:31 Oxymask 8 11/23/23 23:26 Nasal Cannula 5 11/23/23 22:32 Nasal Cannula 4 Laboratory Results Laboratory Results - last 24 hr 11/23/23 11/23/23 11/23/23 10:41 11:18 14:37 WBC RBC Hgb Hct MCV MCH MCHC RDW Std Deviation RDW Coeff of Randall Plt Count MPV Immature Gran % (Auto) Neut % (Auto) Lymph % (Auto) [place] % (Auto) Eos % (Auto) Baso % (Auto) Neut # (Auto) Lymph # (Auto) [place] # (Auto) Eos # (Auto) Baso # (Auto) Immature Gran # (Auto) D-Dimer 2320 H* Heparin Anti-Xa, Unfract Sodium Potassium Chloride Carbon Dioxide Anion Gap BUN Creatinine Est Cr Clr Drug Dosing Est GFR ( Amer) Est GFR (Non-Af Amer) BUN/Creatinine Ratio Glucose Estimat Average Glucose Hemoglobin A1c Lactate 2.8 H* Calcium Magnesium 1.8 Total Bilirubin AST ALT Alkaline Phosphatase Troponin I High Sens 479.5 H* D C-Reactive Protein B-Natriuretic Peptide Total Protein Albumin Globulin Albumin/Globulin Ratio Triglycerides Cholesterol LDL Cholesterol, Calc VLDL Cholesterol, Calc HDL Cholesterol Cholesterol/HDL Ratio Vitamin B12 Procalcitonin Random Vancomycin Adenovirus (PCR) B. pertussis DNA (PCR) B.parapertussis DNA PCR C. pneumoniae DNA (PCR) Coronavirus OC43 (PCR) Coronavirus HKU1 (PCR) Coronavirus 229E (PCR) SARS-CoV-2 (PCR) Coronavirus NL63 (PCR) Human Metapneumovir PCR Influenza Type A (PCR) Influenza Type B (PCR) M. pneumoniae (PCR) Parainfluenza 1 (PCR) Parainfluenza 2 (PCR) Parainfluenza 3 (PCR) Parainfluenza 4 (PCR) RSV (PCR) Entero/Rhino (PCR) 11/23/23 11/23/23 11/23/23 17:15 17:27 20:24 WBC 16.41 H RBC 4.27 L Hgb 14.2 Hct 40.0 L MCV 93.7 MCH 33.3 MCHC 35.5 RDW Std Deviation 50.4 H RDW Coeff of Randall 15.0 H Plt Count 186 MPV 9.5 Immature Gran % (Auto) Neut % (Auto) Lymph % (Auto) [place] % (Auto) Eos % (Auto) Baso % (Auto) Neut # (Auto) Lymph # (Auto) [place] # (Auto) Eos # (Auto) Baso # (Auto) Immature Gran # (Auto) D-Dimer Heparin Anti-Xa, Unfract 0.32 Sodium 132 L Potassium 3.6 Chloride 99 Carbon Dioxide 25 Anion Gap 8 BUN 12 Creatinine 1.04 Est Cr Clr Drug Dosing 53.1 Est GFR ( Amer) 74.0 Est GFR (Non-Af Amer) 63.8 BUN/Creatinine Ratio 11.5 Glucose 130 H Estimat Average Glucose Hemoglobin A1c Lactate 1.4 Calcium 7.9 L Magnesium Total Bilirubin AST ALT Alkaline Phosphatase Troponin I High Sens 1176.0 H* D C-Reactive Protein 13.63 H B-Natriuretic Peptide 636 H Total Protein Albumin Globulin Albumin/Globulin Ratio Triglycerides Cholesterol LDL Cholesterol, Calc VLDL Cholesterol, Calc HDL Cholesterol Cholesterol/HDL Ratio Vitamin B12 Procalcitonin 0.66 H Random Vancomycin Adenovirus (PCR) Not Detected B. pertussis DNA (PCR) Not Detected B.parapertussis DNA PCR Not Detected C. pneumoniae DNA (PCR) Not Detected Coronavirus OC43 (PCR) Not Detected Coronavirus HKU1 (PCR) Not Detected Coronavirus 229E (PCR) Not Detected SARS-CoV-2 (PCR) Not Detected Coronavirus NL63 (PCR) Not Detected Human Metapneumovir PCR Not Detected Influenza Type A (PCR) Not Detected Influenza Type B (PCR) Not Detected M. pneumoniae (PCR) Not Detected Parainfluenza 1 (PCR) Not Detected Parainfluenza 2 (PCR) Not Detected Parainfluenza 3 (PCR) Not Detected Parainfluenza 4 (PCR) Not Detected RSV (PCR) Not Detected Entero/Rhino (PCR) Not Detected 11/23/23 11/24/23 11/24/23 22:42 07:23 07:32 WBC 16.13 H RBC 4.25 L Hgb 13.8 L Hct 39.8 L MCV 93.6 MCH 32.5 MCHC 34.7 RDW Std Deviation 51.3 H RDW Coeff of Randall 15.2 H Plt Count 185 MPV 9.3 L Immature Gran % (Auto) 2.5 Neut % (Auto) 87.3 Lymph % (Auto) 2.6 [place] % (Auto) 7.1 Eos % (Auto) 0.1 Baso % (Auto) 0.4 Neut # (Auto) 14.08 H Lymph # (Auto) 0.42 L [place] # (Auto) 1.14 H Eos # (Auto) 0.01 Baso # (Auto) 0.07 Immature Gran # (Auto) 0.41 H D-Dimer Heparin Anti-Xa, Unfract 0.37 Sodium 134 L Potassium TNP Chloride 100 Carbon Dioxide 26 Anion Gap 8 BUN 14 Creatinine 1.09 Est Cr Clr Drug Dosing 46.8 Est GFR ( Amer) 69.9 Est GFR (Non-Af Amer) 60.3 BUN/Creatinine Ratio 12.8 Glucose 125 H Estimat Average Glucose 105 Hemoglobin A1c 5.3 Lactate 1.4 Calcium 8.0 L Magnesium 1.7 Total Bilirubin 2.0 H D AST TNP ALT 34 Alkaline Phosphatase 68 Troponin I High Sens 1288.3 H* 989.7 H* D C-Reactive Protein B-Natriuretic Peptide Total Protein 6.2 Albumin 3.4 Globulin 2.8 Albumin/Globulin Ratio 1.2 Triglycerides 77 Cholesterol 123 LDL Cholesterol, Calc 65 VLDL Cholesterol, Calc 15 HDL Cholesterol 43 Cholesterol/HDL Ratio 2.9 Vitamin B12 1004 H Procalcitonin Random Vancomycin Adenovirus (PCR) B. pertussis DNA (PCR) B.parapertussis DNA PCR C. pneumoniae DNA (PCR) Coronavirus OC43 (PCR) Coronavirus HKU1 (PCR) Coronavirus 229E (PCR) SARS-CoV-2 (PCR) Coronavirus NL63 (PCR) Human Metapneumovir PCR Influenza Type A (PCR) Influenza Type B (PCR) M. pneumoniae (PCR) Parainfluenza 1 (PCR) Parainfluenza 2 (PCR) Parainfluenza 3 (PCR) Parainfluenza 4 (PCR) RSV (PCR) Entero/Rhino (PCR) 11/24/23 11/24/23 07:39 08:45 WBC RBC Hgb Hct MCV MCH MCHC RDW Std Deviation RDW Coeff of Randall Plt Count MPV Immature Gran % (Auto) Neut % (Auto) Lymph % (Auto) [place] % (Auto) Eos % (Auto) Baso % (Auto) Neut # (Auto) Lymph # (Auto) [place] # (Auto) Eos # (Auto) Baso # (Auto) Immature Gran # (Auto) D-Dimer Heparin Anti-Xa, Unfract Sodium Potassium 3.5 Chloride Carbon Dioxide Anion Gap BUN Creatinine Est Cr Clr Drug Dosing Est GFR ( Amer) Est GFR (Non-Af Amer) BUN/Creatinine Ratio Glucose Estimat Average Glucose Hemoglobin A1c Lactate Calcium Magnesium Total Bilirubin AST 112 H ALT Alkaline Phosphatase Troponin I High Sens C-Reactive Protein B-Natriuretic Peptide Total Protein Albumin Globulin Albumin/Globulin Ratio Triglycerides Cholesterol LDL Cholesterol, Calc VLDL Cholesterol, Calc HDL Cholesterol Cholesterol/HDL Ratio Vitamin B12 Procalcitonin Random Vancomycin 18.9 Adenovirus (PCR) B. pertussis DNA (PCR) B.parapertussis DNA PCR C. pneumoniae DNA (PCR) Coronavirus OC43 (PCR) Coronavirus HKU1 (PCR) Coronavirus 229E (PCR) SARS-CoV-2 (PCR) Coronavirus NL63 (PCR) Human Metapneumovir PCR Influenza Type A (PCR) Influenza Type B (PCR) M. pneumoniae (PCR) Parainfluenza 1 (PCR) Parainfluenza 2 (PCR) Parainfluenza 3 (PCR) Parainfluenza 4 (PCR) RSV (PCR) Entero/Rhino (PCR) Diagnostic Findings Brain MRI 11/23/23 10:14 MRI OF THE BRAIN COMBO CLINICAL HISTORY: Strokelike symptoms. COMPARISON STUDY: CT of the brain dated 11/14/2023. MRI of the brain dated 09/15/2020. TECHNIQUE: MRI of the brain was performed utilizing various T1 and T2-weighted sequences in the axial, sagittal, and coronal planes. Contrast-enhanced sequences were acquired following the administration of 8 cc of Gadavist. The examination is severely degraded by motion artifact. FINDINGS: Brain parenchyma: There is age-related involutional change that the mild to moderate subcortical and periventricular microangiopathic disease. There is no evidence hemorrhage or mass effect. There are small chronic left posterior parieto-occipital infarcts. There is no restricted diffusion typical for acute ischemia. No evidence of enhancing mass lesion is identified on the postcontrast images. Hernandez-white matter differentiation is preserved. No extra-axial fluid collection is seen. The cerebellar tonsils are normal in configuration. Ventricles, sulci, and cisterns: Prominent secondary to involutional change. Pituitary and sella: Partially empty sella is incidentally noted. Intracranial vasculature: Normal flow voids are maintained at the skull base. Orbits: The bony orbits are grossly intact. Orbital contents are normal in appearance noting bilateral ocular lens implants. Sinuses and mastoids: There is moderate mucosal thickening ethmoid sinuses. Mild mucosal thickening seen in the right frontal sinus. The mastoid air cells appear clear. Calvarium: Unremarkable. Cervical cord: Partially visualized cervical spinal cord is normal in morphology and signal intensity. IMPRESSION: No acute intracranial abnormality is identified noting a significantly motion compromised examination. ACT 112: Negative or not required by law. Electronically signed by: Blade Willis M.D. 11/23/2023 5:26 PM Venous Doppler Study 11/23/23 10:36 ULTRASOUND BILATERAL LOWER EXTREMITY VENOUS CLINICAL HISTORY: Swelling and erythema. COMPARISON STUDY: Bilateral lower extremity venous ultrasound dated 05/18/2021 TECHNIQUE: Real-time, grayscale, and color Doppler sonography of the deep veins of the right and left lower extremity was performed from the inguinal crease to the calf. Compression and augmentation were utilized. FINDINGS: There is no sonographic evidence of deep venous thrombosis identified in the right or left lower extremity. The common femoral, superficial femoral, and popliteal veins are patent and normally compressible bilaterally. The greater saphenous vein and the profunda femoris vein at the junction with the common femoral vein are clear in both legs. The visualized calf veins are patent bilaterally. Soft tissue edema is noted in the right calf. IMPRESSION: There is no sonographic evidence of deep venous thrombosis identified in the right or left lower extremity. ACT 112: Negative or not required by law. Electronically signed by: Blade Willis M.D. 11/23/2023 1:23 PM Orbit X-Ray 11/23/23 11:14 BONY ORBITS 3 VIEWS CLINICAL HISTORY: MRI clearance. FINDINGS: 3 views of the bony orbits are obtained. No prior studies are available for comparison at the time of dictation. There is no radiodense/metallic foreign body seen in the region of the bony orbits. The bony orbits are intact as imaged. The visualized paranasal sinuses and the mastoid air cells appear clear. The imaged calvarium appears intact. IMPRESSION: There is no radiodense/metallic foreign body seen in the region of the bony orbits. ACT 112: Negative or not required by law. Electronically signed by: Blade Willis M.D. 11/23/2023 1:08 PM Chest CTA 11/23/23 12:40 CT ANGIOGRAM OF THE CHEST CLINICAL HISTORY: Sepsis. Elevated d-dimer. COMPARISON STUDY: Chest x-ray dated 11/22/2023. Abdominal CT dated 11/22/2023. TECHNIQUE: Following the IV administration of 118 cc of Optiray 320, CT angiogram of the chest was performed from the upper abdomen to the thoracic inlet utilizing the pulmonary embolus protocol. Images are reviewed in the axial, sagittal, and coronal planes. 3-D MIPS images are created and assessed. IV contrast was administered without complication. A dose lowering technique was utilized adhering to the principles of ALARA. The examination is compromised by motion artifact, as well as by streak artifact from the arms which could not be elevated above the chest. CT DOSE: 873.9 mGy.cm FINDINGS: Thyroid: Imaged portions of the thyroid gland are normal in size and attenuation. Thoracic aorta: There is atherosclerotic calcification of the thoracic aorta, which is normal in caliber and demonstrates bovine variant arch anatomy. No dissection is seen. Pulmonary vasculature: The pulmonary trunk is normal in caliber. There are no filling defects identified in main, lobar, or proximal segmental pulmonary branches to suggest pulmonary embolus. Evaluation of the segmental and subsegmental branches is significantly degraded by motion artifact. Heart: The heart is enlarged and without pericardial effusion. The coronary arteries are densely calcified. Lungs and pleural spaces: Evaluation of the lung parenchyma is significantly compromised by motion artifact. Mild intralobular septal thickening is observed. There is airspace consolidation seen throughout the right upper lobe. There are small right and trace left pleural effusions with dependent consolidation. Pleural effusions and dependent consolidation is new from yesterday's abdominal CT. The trachea and central airways appear clear. Mediastinum: There are mildly enlarged mediastinal lymph nodes. A precarinal node measures 1.5 cm short axis. Kaila: Clear. Axillae: There is no axillary lymphadenopathy. Upper abdomen: Partially visualized upper abdominal viscera is within normal limits. Skeletal structures: The skeletal structures are osteopenic. Degenerative change and kyphoscoliosis is noted in the thoracic spine. No lytic or blastic bony lesions are seen. IMPRESSION: 1. Streak and motion compromised examination. 2. There is no evidence of central pulmonary embolus in the main, lobar, or proximal segmental pulmonary arteries. 3. There is patchy airspace consolidation throughout the right upper lobe, typical for pneumonia/aspiration pneumonitis. Clinical correlation will be required and radiographic follow-up to resolution is recommended. 4. Small right and trace left pleural effusions with dependent consolidation. This is new from yesterday's abdominal CT. 5. Cardiomegaly with mild intralobular septal thickening. This suggests fluid overload/congestive change. Correlate clinically. 6. Additional findings as above. ACT 112: Negative or not required by law. Electronically signed by: Blade Willis M.D. 11/23/2023 2:06 PM KUB X-Ray 11/23/23 13:26 KUB CLINICAL HISTORY: MRI clearance. FINDINGS: 2 AP supine abdominal radiographs are correlated with abdominal CT dated 11/22/2023. There is a nonobstructed abdominal bowel gas pattern. No evidence of intraperitoneal free air is seen on these supine images. There are no abnormal abdominal calcifications. No radiodense/metallic foreign body is seen. Excreted IV contrast is seen within the renal collecting systems and bladder. The skeletal structures are osteopenic and appear intact. There is moderate lumbosacral spondylosis. The heart is enlarged. Airspace opacities are noted at the lung bases. IMPRESSION: 1. No acute abnormality is identified. 2. No radiodense/metallic foreign body is seen. 3. Airspace opacities are seen at the lung bases. Electronically signed by: Blade Willis M.D. 11/23/2023 1:46 PM PG Care Time/CCT Total # of Minutes Spent Total Time Spent with Patient: Total time spent is greater than 50% in coordination of care (as documented) at patient's floor/unit and/or counseling patient: Coding Level of Care Code 38127 SUB INP/OBS CARE 3/50MIN Diagnoses Sepsis A41.9 Metabolic encephalopathy G93.41 Afib I48.91 NSTEMI (non-ST elevated myocardial infarction) I21.4 Carotid stenosis I65.29 H/O: GI bleed Z87.19 Hypertension I10 H/O alcohol dependence F10.21
[2023-11-24] MEDS: FUROSEMIDE INJ 20 MG/2 ML VIAL IV ONE ×2 (10:02→16:31)
--- NOTE | 2023-11-24 10:14 | Pharmacy Report ---
Pharmacy PK ABX Note - Date of Service November 24, 2023 - Assessment and Plan Assessment 88 year old M receiving Vancomycin and Zosyn for treatment of pneumonia/sepsis/BL lower extremity cellulitis. * Day #3 of antimicrobial therapy. * Labs/Vitals: Fever yesterday, afebrile today, Leukocytosis was improving but bumped back up today. Renal fxn stable. Procal 0.66 yesterday. * Micro: MRSA nasal swab positive. Blood cultures no growth to date. * Pt wt updated yesterday to 85kg (documented as 64 kg on admission), so vancomycin dosing was changed last night. Plan Vancomycin * Current regimen changed last night to 1500 mg IV every 24 hours * Random level obtained 11/24/23 resulted as 18.9 mcg/mL. This is predicted to achieve target AUC/YAZMIN of 400-600 mg/L.hr * Predicted AUC at steady state: 544 mg/L.hr * Continue 1500 mg IV every 24 hours * Will repeat level in the next 48-72 hours if therapy is continued and/or change in patient clinical status Zosyn * 4.5 g IV every 8 hours Pharmacy will continue to follow and will adjust dose/frequency as necessary. Thank you. Pharmacy has transitioned to AUC monitoring for vancomycin. AUC/YAZMIN is the preferred PK/PD target and is associated with decreased risk of nephrotoxicity compared to traditional trough targets.
--- NOTE | 2023-11-24 10:19 | Neurology Consultation ---
Date of Consultation November 24, 2023 Assessment & Plan (1) Acute encephalopathy: (2) Neck pain: (3) Carotid stenosis: (4) NSTEMI (non-ST elevated myocardial infarction): (5) Paroxysmal A-fib: Plan Patient has an acute encephalopathy likely due to effects of sepsis. He ac tually is thinking fairly clearly today although he is tired and somewhat confused. Given his advanced age, I cannot exclude a mild underlying dementia superimposed. Otherwise, he does not have any significant focal abnormalities. He does have neck stiffness and pain which I think is mechanical as opposed to "meningitis". He has significant left internal carotid artery stenosis (2 places) some right carotid stenosis in 2 places as well. This is somewhat worse compared to previous studies. He is at high risk for stroke given his paroxysmal atrial fibrillation, advanced age, and hypertension. Unfortunately, the patient has had GI bleed in the past and is not on any anticoagulants or antiplatelet medication. Patient has a NSTEMI MRI Recommendations: 1. Given his carotid stenosis he would be a clopidogrel 75 mg daily candidate. Unfortunately, because of his history of GI bleed, I cannot initiate this. 2. He should be on anticoagulant given his intermittent atrial fibrillation history. Obviously, because of the history of GI bleed, no one will give him an anticoagulant. 3. It might be reasonable to consult GI to see if they feel it is safe for him to be on either an anticoagulant (first) or clopidogrel if not able to be on an anticoagulant. 4. I see no reason for a lumbar puncture at this time 5. There is no need for an EEG 6. Because of his neck issue an MRI of the cervical spine is reasonable but if this is not easily obtained, I would obtain plain x-rays of the cervical spine to look for obvious bony abnormalities 7. Continue physical and occupational therapy increasing strength and ambulation. Overall, I spent a total 100 minutes with this case including review of records, review of MRI films, direct evaluation the patient at bedside, report gen eration, and discussion of the case with the patient and RN at bedside and Dr. Villa, including differential diagnosis and treatment options. History of Present Illness Reason for Consultation: Patient is an 88-year-old, who was asked to see at the request of Dr. Villa, for neurologic evaluation regarding encephalopathy. Requesting Physician: Dr. Villa Attending Physician: Vince Villa MD History of Present Illness Patient has a history of stroke in the past when I saw him in April 2018 for strokelike symptoms his MRI did not show any actual stroke. It did show some atrophy consistent with age. At that time he had a 75% stenosis of the left internal carotid artery and 40% stenosis of the right internal carotid artery. Patient has a history of hypertension and paroxysmal atrial fibrillation (known to go in and out of atrial fibrillation with a rate control. He has a history of GI bleed in the past and history of alcohol abuse in the past although he cl aims he has not had alcohol for "years". Patient was hospitalized this April with cellulitis in his lower extremities. He has seemingly recovered. He was last known in his usual state of health at 4 PM on November 20. He was found on the floor with garbled speech and confusion on November 21. He does seem to remember falling but he does not remember much thereafter. He states that he may have had some headaches and dizziness earlier last week but cannot give further details. He does feel that he is a little confused currently but has no nausea or vomiting, new weakness or numbness, headache or pain. However, he does have limited motion of the neck and moving can cause neck pain. Further history describes that he has been having a cough for the last 2 weeks. He arrived to the emergency room November 21 at 1446 with a temperature of 36.9, pulse 130, respiratory 20, blood pressure 168/83 and O2 saturation 92%. He was described as having garbled speech and confusion but moving his limbs well. CBC showed an elevated white count of 17.6 with elevated lactate. Hemoglobin hematocrit were unremarkable as well as chemistry profile. Troponin was elevated at 171. Chest x-ray showed cardiomegaly with mild pulmonary vascular congestion. CTA of the chest showed no evidence for pulmonary embolus. He had a patchy infiltrate in the right upper lobe consistent with pneumonitis and trace pleural effusions. CT scan of the head was unremarkable for acute changes. CT angiography of the head revealed moderate, left greater than right, supraclinoid area internal carotid artery stenosis bilaterally. CT angiography of the neck revealed near occlusion at the origin of the left internal carotid artery (trace flow) with less than 50% stenosis of the right internal carotid artery. MRI of the brain showed significant generalized atrophy consistent with age in no acute issues or stroke. I reviewed these films. Today he is in and out of atrial fibrillation and normal sinus rhythm with a pulse approximately in the 90s. CBC shows elevated white count and CHEM profile was largely unremarkable. Total cholesterol was 123 and triglycerides 77. B12 was 1004 and TSH was 2.5. Procalcitonin was 0.66 Nursing reports confusion and the patient is combative trying to pull at his lines and mask. Allergies Allergy/AdvReac Type Severity Reaction Status Date / Time No Known Allergies Allergy Verified 11/22/23 17:05 Home Medications Medication Instructions Recorded Confirmed Type No Known Home Medications 11/22/23 11/22/23 History Patient History Medical History Influenza A Tinea unguium Cellulitis of leg, right Gastric ulcer GI bleed History of CVA (cerebrovascular accident) Elevated CK Hyperglycemia Insomnia Hypothyroidism Anxiety Alcohol abuse Hypertensive urgency Surgical History History of colonoscopy History of tonsillectomy History of cataract surgery Family History Mother , age 90 of uncertain causes. Anxiety Father , age 55 of pulmonary disease and alcoholism Lung disease Sister Kidney stone Denies family history of Ovarian cancer Prostate cancer Myocardial infarction Breast cancer Colorectal cancer Social History Smoking Status: Unknown if ever smoked Tobacco Type: Cigarettes Age Started Using Tobacco: 20; Age Quit Using Tobacco: 60; Cigarettes Per Day: social smoker, off and on; Second Hand Exposure: No; Do You Dip or Chew Tobacco: No; Hx Alcohol Use: No Hx Substance Use: No Preferred Language: Burmese Communication Ability: Impaired Visual Impairment: No Limitations Hearing Ability: Normal Obedience Trainer Required: No Beliefs That Will Affect Care: None marital status: Current Living Situation: Alone Current Living Situation Comment: Lives alone with spouse who is WCB current occupational status: retired 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 Other Information That Helps Us Care for You: No Feels Safe at Home: Declines to Answer Childhood Exposure to Second-Hand Smoke: Yes Diet: regular Dental Care, Regularly: No Physical Activity Frequency: Does not Exercise Seatbelt Use: always Sunscreen Use: No Assistive Devices: Glasses Review of Systems Constitutional: no fever, no fatigue and no weakness Eyes: no diplopia, no eye pain and no worsening vision Ear, Nose, Mouth, Throat: no ear pain, no tinnitus, no hearing loss, no dizziness, no snoring, no hoarseness and no dysphagia Respiratory: no cough and no dyspnea Cardiovascular: no chest pain, no palpitations and no lightheadedness Gastrointestinal: no abdominal pain, no nausea and no vomiting Musculoskeletal: no back pain, no neck pain, no radicular pain, no joint pain and no myalgia Integumentary: no rash and no lesions Neurologic: + generalized weakness and + confusion; no gait abnormality, no localized weakness, no tingling, no numbness, no tremor(s), no abnormal moveme nts, no headache(s), no abnormal speech and no memory loss Psychiatric: no depression, no irritability, no anxiety, no difficulty concentrating, no confusion and no hallucinations Endocrine: no fatigue and no flushing Hematologic / Lymphatic: no easy bleeding and no easy bruising Allergy / Immunological: no urticaria and no problem reported Exam (Neuro) Physical Exam: The patient is right-handed. The patient sleepy but easily aroused by voice and gentle touch. When awake, he was oriented to person and place as well as his age. Mood was normal and affect was appropriate. A reasonable conversation could be held with this patient and he was pleasant and cooperative. He could recite the months of the year forward and three quarters backwards. He had excellent immediate recall of 3 test objects but did not remember any of them 5 minutes later Pupils are 4 mm bilaterally and reactive to light. Extraocular eye muscles seems intact although the right eye did not completely abduct to the right. He had no complaint of double vision. Vertical gaze was limited and the patient had trouble because he did not want to move his neck due to neck pain and stiffness. There are no deficits to sensation in the face in all 3 distributions of the fifth cranial nerve bilaterally. Corneal reflexes are positive bilaterally. Facial strength and symmetry was normal bilaterally. Hearing seems intact grossly to voice and finger rub bilaterally. Palate moves well without asymmetry. There is normal sternocleidomastoid and trapezius strength bilaterally. Tongue is midline with good strength bilaterally. Patient has a very stiff neck and movement laterally or turning causes pain. Flexion extension of the has a little bit better movement but still is stiff. He tends to hold his neck tilted and turned to the right. Cervical spine was nontender to palpation.. Gait was not attempted in sitting up in bed is difficult With outstretched arms there is no obvious drift. There are no resting, postural, or action tremors. There is no obvious ataxia with finger to nose testing. There is reason facility in the hands. No other abnormal involuntary movements are noted. Motor strength is 5/5 diffusely in the arms bilaterally including deltoids, biceps, triceps, brachioradialis, wrist flexors and extensors, adjunct faculty for medical terminology, and intrinsic hand muscles. Motor strength is 5/5 diffusely in the legs bilaterally including hip flexors, quadriceps, hamstrings, gastrocnemius, tibialis anterior, tibialis posterior, and Peroneii muscles bilaterally. Toe extensors are normal and there is good bulk in the extensor digitorum brevis muscles bilaterally. Patient has mild rigidity in the limbs. Muscle bulk is normal, although distal muscles are somewhat thickened diffusely (no focal atrophy). There is no tenderness to palpation, no myotonia to percussion, and no fasciculations seen. Sensory examination is intact to touch and pin throughout all 4 limbs diffusely. Reflexes are 1/4 in the biceps, triceps, brachioradialis, and quadriceps tendons bilaterally. Achilles tendon reflexes are absent bilaterally Toes are downgoing with plantar stimulation bilaterally. Peripheral pulses are present and of normal quality distally in all 4 limbs. There is no peripheral edema noted in the limbs. Results & Data Vital Signs (Past 12 Hours) Vital Signs Temp Pulse Pulse Resp BP BP Pulse Ox 11/24/23 08:37 93 H 11/24/23 08:22 11/24/23 07:03 36.9 C 99 H 18 190/85 H 97 11/24/23 03:31 36.9 C 70 22 116/86 94 11/23/23 23:26 89 L 11/23/23 22:32 37.6 C H 90 24 185/81 H 91 11/23/23 21:54 78 O2 Del Method O2 Flow Rate 11/24/23 08:37 11/24/23 08:22 Oxymask 6 11/24/23 07:03 Oxymask 6 11/24/23 03:31 Oxymask 8 11/23/23 23:26 Nasal Cannula 5 11/23/23 22:32 Nasal Cannula 4 11/23/23 21:54 PG Care Time/CCT Total # of Minutes Spent Total Time Spent with Patient: Total time spent is greater than 50% in coordination of care (as documented) at patient's floor/unit and/or counseling patient: Coding Level of Care Code 11259 ER DEPT VISIT HIGH LVL 5 Diagnoses Acute encephalopathy G93.40 Neck pain M54.2 Carotid stenosis I65.29 NSTEMI (non-ST elevated myocardial infarction) I21.4 Paroxysmal A-fib I48.0 Time Spent (min) 100
[2023-11-24] MEDS: MAGNESIUM SULFATE / D5W 1 GM/100 ML BAG IV SCH (10:20)
[2023-11-24] MEDS: POTASSIUM CHLORIDE CRTAB 20 MEQ TABCR PO STA (10:22)
--- NOTE | 2023-11-24 12:41 | Gastrointestinal Consultation ---
Date of Consultation November 24, 2023 Assessment & Plan (1) H/O: GI bleed: 88-year-old male w/ history of afib, anemia, IBS, stenosis of left carotid artery, GI bleed, and hypertension who was admitted 11/22/23 w/ sepsis, PNA, NSTEMI - GI asked to evaluate candidacy for anticoagulation and antiplatelet use given his history of GI bleeding - he is currently on a Heparin drip. He had a GI bleed in 2021 in the setting of ASA and TID Aleve use. EGD at that time showing a gastric ulcer with a visible vessel treated w/ APC and clipped. No current evidence of GI bleeding since initiation of Heparin drip. His HGB is at baseline at 13.8 without BUN elevation. I attempted to contact sonJamie at 12:43. No answer. Did not leave voicemail. Recommend goals of care discussion and risks/benefits of long-term anticoagulation/antiplatelet use. Bleeding is a risk of therapy and at that time EGD may required. Recommend if he is started on anticoagulation/antiplatelet therapy that he avoids NSAIDs. He can be started on PPI therapy once daily. I spent a total of 45 minutes on the date of service in review of patient's record, and previously obtained information in person and appropriate medical visit, discussion and education of plan, with patient and/or caregiver, placing orders for tests/referral/procedures as medically necessary and documentation of pertinent clinical information in patient's medical records for their visit today. Thank you for allowing us to participate in the care of this patient. Please call with any acute changes, questions or concerns. Please see addendum below with additional recommendation from my supervising physician. Supervising Physician Co-Signing Physician Notes I examined the patient and reviewed patient's chart , laboratory data and imaging studies. I agree with with assessment and plan of care as suggested by advanced practice provider. Okay to continue anticoagulation for cardiac indications. Avoid nonsteroidals. Add once a day proton pump inhibitor. History of Present Illness Reason for Consultation: clearance for Anticoagulation and Plavix Requesting Physician: Vince Villa MD Attending Physician: Vince Villa MD History of Present Illness 88-year-old male w/ history of afib, anemia, IBS, stenosis of left carotid artery, melena/GI bleed, and hypertension who was admitted 11/22/23 w/ sepsis, PNA, NSTEMI - GI asked to evaluate candidacy for anticoagulation and antiplatelet use given his history of GI bleeding. Pt was seen and evaluated, chart reviewed. No family at bedside. rail technician at bedside who aids in history. Notes from a GI standpoint, they are not aware of any concerns. He denies abd pain, nausea/vomiting. No report of black or bloody stools. He does not recall the events of his GI bleed in 2021. Per documentation, at that time he was using baby ASA daily and Aleve TID. EGD 2021: - Z-line irregular, 36 cm from the incisors. - Moderate Schatzki ring. - 3 cm hiatal hernia. - Red blood in the entire stomach. - Oozing gastric ulcer with a visible vessel. NSAID induced etiology. Injected. Treated with argon plasma coagulation (APC). Clip was placed. - Blood in the second portion of the duodenum. - The examination was otherwise normal. - No specimens collected. Allergies Allergy/AdvReac Type Severity Reaction Status Date / Time No Known Allergies Allergy Verified 11/22/23 17:05 Home Medications Medication Instructions Recorded Confirmed Type No Known Home Medications 11/22/23 11/22/23 History Patient History Medical History Influenza A Tinea unguium Cellulitis of leg, right Gastric ulcer GI bleed History of CVA (cerebrovascular accident) Elevated CK Hyperglycemia Insomnia Hypothyroidism Anxiety Alcohol abuse Hypertensive urgency Surgical History History of colonoscopy History of tonsillectomy History of cataract surgery Family History Mother , age 90 of uncertain causes. Anxiety Father , age 55 of pulmonary disease and alcoholism Lung disease Sister Kidney stone Denies family history of Ovarian cancer Prostate cancer Myocardial infarction Breast cancer Colorectal cancer Social History Smoking Status: Unknown if ever smoked Tobacco Type: Cigarettes Age Started Using Tobacco: 20; Age Quit Using Tobacco: 60; Cigarettes Per Day: social smoker, off and on; Second Hand Exposure: No; Do You Dip or Chew Tobacco: No; Hx Alcohol Use: No Hx Substance Use: No Preferred Language: Lithuanian Communication Ability: Impaired Visual Impairment: No Limitations Hearing Ability: Normal Subcontracts Manager Required: No Beliefs That Will Affect Care: None marital status: Current Living Situation: Alone Current Living Situation Comment: Lives alone with spouse who is WCB current occupational status: retired 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 Physical Exam Constitutional: WD/WN, vitals as above Respiratory: normal respiratory effort Cardiovascular: Rate/Rhythm: regular rate Gastrointestinal (Abdomen): normal bowel sounds, soft, nontender, no hepatosplenomegaly Skin: no rashes, warm and dry Results & Data Vital Signs (Past 12 Hours) Vital Signs Temp Pulse Pulse Resp BP BP Pulse Ox 11/24/23 11:42 36.7 C 87 20 159/71 H 93 11/24/23 08:37 93 H 11/24/23 08:22 11/24/23 07:03 36.9 C 99 H 18 190/85 H 97 11/24/23 03:31 36.9 C 70 22 116/86 94 O2 Del Method O2 Flow Rate 11/24/23 11:42 Nasal Cannula 6 11/24/23 08:37 11/24/23 08:22 Oxymask 6 11/24/23 07:03 Oxymask 6 11/24/23 03:31 Oxymask 8 Laboratory Results 11/24/23 11/24/23 11/24/23 Range/Units 08:45 07:39 07:32 WBC (4.8-10.8) K/ul RBC (4.70-6.10) M/uL Hgb (14.0-18.0) g/dl Hct (42.0-52.0) % MCV (80.0-100.0) fL MCH (25.0-34.0) pg MCHC (32.0-36.0) g/dL RDW Std Deviation (36.4-46.3) fL RDW Coeff of Randall (11.5-14.5) % Plt Count (130-400) K/uL MPV (9.4-12.4) fL Immature Gran % (Auto) % Neut % (Auto) % Lymph % (Auto) % [place] % (Auto) % Eos % (Auto) % Baso % (Auto) % Neut # (Auto) (1.40-6.50) K/uL Lymph # (Auto) (1.20-3.40) K/uL [place] # (Auto) (0.11-0.59) K/uL Eos # (Auto) (0.00-0.50) K/uL Baso # (Auto) (0.00-0.20) K/uL Immature Gran # (Auto) (0.01-0.20) K/uL Heparin Anti-Xa, Unfract (0.3-0.7) IU/ml Sodium (136-145) mmol/L Potassium 3.5 (3.5-5.1) mmol/L Chloride (98-107) mmol/L Carbon Dioxide (21-32) mmol/L Anion Gap (3-11) BUN (6-23) mg/dl Creatinine (0.6-1.4) mg/dl Est Cr Clr Drug Dosing ml/min Est GFR ( Amer) ml/min Est GFR (Non-Af Amer) ml/min BUN/Creatinine Ratio (10-20) Glucose (70-99(Fasting)) mg/dl Estimat Average Glucose mg/dl Hemoglobin A1c (4.5-5.6) % Lactate 1.4 (0.4-2.0) mmol/L Calcium (8.6-10.3) mg/dl Magnesium (1.7-2.4) mg/dl Total Bilirubin (0.2-1.0) mg/dl AST 112 H ALT (7-52) U/L Alkaline Phosphatase (34-104) U/L Troponin I High Sens (0-20) pg/ml C-Reactive Protein (0-0.5) mg/dl B-Natriuretic Peptide (0-100) pg/ml Total Protein (6.0-8.3) gm/dl Albumin (3.4-5.0) gm/dl Globulin (2.5-4.0) gm/dl Albumin/Globulin Ratio (0.9-2) Triglycerides (0-150) mg/dl Cholesterol (0-200) mg/dl LDL Cholesterol, Calc mg/dl VLDL Cholesterol, Calc (0-30) mg/dl HDL Cholesterol mg/dl Cholesterol/HDL Ratio (0-5) Vitamin B12 (180-914) pg/ml Procalcitonin (0-0.5) ng/ml Random Vancomycin 18.9 (10-20) mcg/ml Adenovirus (PCR) (NotDetected) B. pertussis DNA (PCR) (NotDetected) B.parapertussis DNA PCR (NotDetected) C. pneumoniae DNA (PCR) (NotDetected) Coronavirus OC43 (PCR) (NotDetected) Coronavirus HKU1 (PCR) (NotDetected) Coronavirus 229E (PCR) (NotDetected) SARS-CoV-2 (PCR) (NotDetected) Coronavirus NL63 (PCR) (NotDetected) Human Metapneumovir PCR (NotDetected) Influenza Type A (PCR) (NotDetected) Influenza Type B (PCR) (NotDetected) M. pneumoniae (PCR) (NotDetected) Parainfluenza 1 (PCR) (NotDetected) Parainfluenza 2 (PCR) (NotDetected) Parainfluenza 3 (PCR) (NotDetected) Parainfluenza 4 (PCR) (NotDetected) RSV (PCR) (NotDetected) Entero/Rhino (PCR) (NotDetected) 11/24/23 11/23/23 11/23/23 Range/Units 07:23 22:42 20:24 WBC 16.13 H 16.41 H (4.8-10.8) K/ul RBC 4.25 L 4.27 L (4.70-6.10) M/uL Hgb 13.8 L 14.2 (14.0-18.0) g/dl Hct 39.8 L 40.0 L (42.0-52.0) % MCV 93.6 93.7 (80.0-100.0) fL MCH 32.5 33.3 (25.0-34.0) pg MCHC 34.7 35.5 (32.0-36.0) g/dL RDW Std Deviation 51.3 H 50.4 H (36.4-46.3) fL RDW Coeff of Randall 15.2 H 15.0 H (11.5-14.5) % Plt Count 185 186 (130-400) K/uL MPV 9.3 L 9.5 (9.4-12.4) fL Immature Gran % (Auto) 2.5 % Neut % (Auto) 87.3 % Lymph % (Auto) 2.6 % [place] % (Auto) 7.1 % Eos % (Auto) 0.1 % Baso % (Auto) 0.4 % Neut # (Auto) 14.08 H (1.40-6.50) K/uL Lymph # (Auto) 0.42 L (1.20-3.40) K/uL [place] # (Auto) 1.14 H (0.11-0.59) K/uL Eos # (Auto) 0.01 (0.00-0.50) K/uL Baso # (Auto) 0.07 (0.00-0.20) K/uL Immature Gran # (Auto) 0.41 H (0.01-0.20) K/uL Heparin Anti-Xa, Unfract 0.37 0.32 (0.3-0.7) IU/ml Sodium 134 L 132 L (136-145) mmol/L Potassium TNP 3.6 (3.5-5.1) mmol/L Chloride 100 99 (98-107) mmol/L Carbon Dioxide 26 25 (21-32) mmol/L Anion Gap 8 8 (3-11) BUN 14 12 (6-23) mg/dl Creatinine 1.09 1.04 (0.6-1.4) mg/dl Est Cr Clr Drug Dosing 46.8 53.1 ml/min Est GFR ( Amer) 69.9 74.0 ml/min Est GFR (Non-Af Amer) 60.3 63.8 ml/min BUN/Creatinine Ratio 12.8 11.5 (10-20) Glucose 125 H 130 H (70-99(Fasting)) mg/dl Estimat Average Glucose 105 mg/dl Hemoglobin A1c 5.3 (4.5-5.6) % Lactate 1.4 (0.4-2.0) mmol/L Calcium 8.0 L 7.9 L (8.6-10.3) mg/dl Magnesium 1.7 (1.7-2.4) mg/dl Total Bilirubin 2.0 H D (0.2-1.0) mg/dl AST TNP ALT 34 (7-52) U/L Alkaline Phosphatase 68 (34-104) U/L Troponin I High Sens 989.7 H* D 1288.3 H* (0-20) pg/ml C-Reactive Protein 13.63 H (0-0.5) mg/dl B-Natriuretic Peptide 636 H (0-100) pg/ml Total Protein 6.2 (6.0-8.3) gm/dl Albumin 3.4 (3.4-5.0) gm/dl Globulin 2.8 (2.5-4.0) gm/dl Albumin/Globulin Ratio 1.2 (0.9-2) Triglycerides 77 (0-150) mg/dl Cholesterol 123 (0-200) mg/dl LDL Cholesterol, Calc 65 mg/dl VLDL Cholesterol, Calc 15 (0-30) mg/dl HDL Cholesterol 43 mg/dl Cholesterol/HDL Ratio 2.9 (0-5) Vitamin B12 1004 H (180-914) pg/ml Procalcitonin 0.66 H (0-0.5) ng/ml Random Vancomycin (10-20) mcg/ml Adenovirus (PCR) (NotDetected) B. pertussis DNA (PCR) (NotDetected) B.parapertussis DNA PCR (NotDetected) C. pneumoniae DNA (PCR) (NotDetected) Coronavirus OC43 (PCR) (NotDetected) Coronavirus HKU1 (PCR) (NotDetected) Coronavirus 229E (PCR) (NotDetected) SARS-CoV-2 (PCR) (NotDetected) Coronavirus NL63 (PCR) (NotDetected) Human Metapneumovir PCR (NotDetected) Influenza Type A (PCR) (NotDetected) Influenza Type B (PCR) (NotDetected) M. pneumoniae (PCR) (NotDetected) Parainfluenza 1 (PCR) (NotDetected) Parainfluenza 2 (PCR) (NotDetected) Parainfluenza 3 (PCR) (NotDetected) Parainfluenza 4 (PCR) (NotDetected) RSV (PCR) (NotDetected) Entero/Rhino (PCR) (NotDetected) 11/23/23 11/23/23 11/23/23 Range/Units 17:27 17:15 14:37 WBC (4.8-10.8) K/ul RBC (4.70-6.10) M/uL Hgb (14.0-18.0) g/dl Hct (42.0-52.0) % MCV (80.0-100.0) fL MCH (25.0-34.0) pg MCHC (32.0-36.0) g/dL RDW Std Deviation (36.4-46.3) fL RDW Coeff of Randall (11.5-14.5) % Plt Count (130-400) K/uL MPV (9.4-12.4) fL Immature Gran % (Auto) % Neut % (Auto) % Lymph % (Auto) % [place] % (Auto) % Eos % (Auto) % Baso % (Auto) % Neut # (Auto) (1.40-6.50) K/uL Lymph # (Auto) (1.20-3.40) K/uL [place] # (Auto) (0.11-0.59) K/uL Eos # (Auto) (0.00-0.50) K/uL Baso # (Auto) (0.00-0.20) K/uL Immature Gran # (Auto) (0.01-0.20) K/uL Heparin Anti-Xa, Unfract (0.3-0.7) IU/ml Sodium (136-145) mmol/L Potassium (3.5-5.1) mmol/L Chloride (98-107) mmol/L Carbon Dioxide (21-32) mmol/L Anion Gap (3-11) BUN (6-23) mg/dl Creatinine (0.6-1.4) mg/dl Est Cr Clr Drug Dosing ml/min Est GFR ( Amer) ml/min Est GFR (Non-Af Amer) ml/min BUN/Creatinine Ratio (10-20) Glucose (70-99(Fasting)) mg/dl Estimat Average Glucose mg/dl Hemoglobin A1c (4.5-5.6) % Lactate 2.8 H* (0.4-2.0) mmol/L Calcium (8.6-10.3) mg/dl Magnesium (1.7-2.4) mg/dl Total Bilirubin (0.2-1.0) mg/dl AST ALT (7-52) U/L Alkaline Phosphatase (34-104) U/L Troponin I High Sens 1176.0 H* D (0-20) pg/ml C-Reactive Protein (0-0.5) mg/dl B-Natriuretic Peptide (0-100) pg/ml Total Protein (6.0-8.3) gm/dl Albumin (3.4-5.0) gm/dl Globulin (2.5-4.0) gm/dl Albumin/Globulin Ratio (0.9-2) Triglycerides (0-150) mg/dl Cholesterol (0-200) mg/dl LDL Cholesterol, Calc mg/dl VLDL Cholesterol, Calc (0-30) mg/dl HDL Cholesterol mg/dl Cholesterol/HDL Ratio (0-5) Vitamin B12 (180-914) pg/ml Procalcitonin (0-0.5) ng/ml Random Vancomycin (10-20) mcg/ml Adenovirus (PCR) Not Detected (NotDetected) B. pertussis DNA (PCR) Not Detected (NotDetected) B.parapertussis DNA PCR Not Detected (NotDetected) C. pneumoniae DNA (PCR) Not Detected (NotDetected) Coronavirus OC43 (PCR) Not Detected (NotDetected) Coronavirus HKU1 (PCR) Not Detected (NotDetected) Coronavirus 229E (PCR) Not Detected (NotDetected) SARS-CoV-2 (PCR) Not Detected (NotDetected) Coronavirus NL63 (PCR) Not Detected (NotDetected) Human Metapneumovir PCR Not Detected (NotDetected) Influenza Type A (PCR) Not Detected (NotDetected) Influenza Type B (PCR) Not Detected (NotDetected) M. pneumoniae (PCR) Not Detected (NotDetected) Parainfluenza 1 (PCR) Not Detected (NotDetected) Parainfluenza 2 (PCR) Not Detected (NotDetected) Parainfluenza 3 (PCR) Not Detected (NotDetected) Parainfluenza 4 (PCR) Not Detected (NotDetected) RSV (PCR) Not Detected (NotDetected) Entero/Rhino (PCR) Not Detected (NotDetected) 11/23/23 Range/Units 11:18 WBC (4.8-10.8) K/ul RBC (4.70-6.10) M/uL Hgb (14.0-18.0) g/dl Hct (42.0-52.0) % MCV (80.0-100.0) fL MCH (25.0-34.0) pg MCHC (32.0-36.0) g/dL RDW Std Deviation (36.4-46.3) fL RDW Coeff of Randall (11.5-14.5) % Plt Count (130-400) K/uL MPV (9.4-12.4) fL Immature Gran % (Auto) % Neut % (Auto) % Lymph % (Auto) % [place] % (Auto) % Eos % (Auto) % Baso % (Auto) % Neut # (Auto) (1.40-6.50) K/uL Lymph # (Auto) (1.20-3.40) K/uL [place] # (Auto) (0.11-0.59) K/uL Eos # (Auto) (0.00-0.50) K/uL Baso # (Auto) (0.00-0.20) K/uL Immature Gran # (Auto) (0.01-0.20) K/uL Heparin Anti-Xa, Unfract (0.3-0.7) IU/ml Sodium (136-145) mmol/L Potassium (3.5-5.1) mmol/L Chloride (98-107) mmol/L Carbon Dioxide (21-32) mmol/L Anion Gap (3-11) BUN (6-23) mg/dl Creatinine (0.6-1.4) mg/dl Est Cr Clr Drug Dosing ml/min Est GFR ( Amer) ml/min Est GFR (Non-Af Amer) ml/min BUN/Creatinine Ratio (10-20) Glucose (70-99(Fasting)) mg/dl Estimat Average Glucose mg/dl Hemoglobin A1c (4.5-5.6) % Lactate (0.4-2.0) mmol/L Calcium (8.6-10.3) mg/dl Magnesium 1.8 (1.7-2.4) mg/dl Total Bilirubin (0.2-1.0) mg/dl AST ALT (7-52) U/L Alkaline Phosphatase (34-104) U/L Troponin I High Sens (0-20) pg/ml C-Reactive Protein (0-0.5) mg/dl B-Natriuretic Peptide (0-100) pg/ml Total Protein (6.0-8.3) gm/dl Albumin (3.4-5.0) gm/dl Globulin (2.5-4.0) gm/dl Albumin/Globulin Ratio (0.9-2) Triglycerides (0-150) mg/dl Cholesterol (0-200) mg/dl LDL Cholesterol, Calc mg/dl VLDL Cholesterol, Calc (0-30) mg/dl HDL Cholesterol mg/dl Cholesterol/HDL Ratio (0-5) Vitamin B12 (180-914) pg/ml Procalcitonin (0-0.5) ng/ml Random Vancomycin (10-20) mcg/ml Adenovirus (PCR) (NotDetected) B. pertussis DNA (PCR) (NotDetected) B.parapertussis DNA PCR (NotDetected) C. pneumoniae DNA (PCR) (NotDetected) Coronavirus OC43 (PCR) (NotDetected) Coronavirus HKU1 (PCR) (NotDetected) Coronavirus 229E (PCR) (NotDetected) SARS-CoV-2 (PCR) (NotDetected) Coronavirus NL63 (PCR) (NotDetected) Human Metapneumovir PCR (NotDetected) Influenza Type A (PCR) (NotDetected) Influenza Type B (PCR) (NotDetected) M. pneumoniae (PCR) (NotDetected) Parainfluenza 1 (PCR) (NotDetected) Parainfluenza 2 (PCR) (NotDetected) Parainfluenza 3 (PCR) (NotDetected) Parainfluenza 4 (PCR) (NotDetected) RSV (PCR) (NotDetected) Entero/Rhino (PCR) (NotDetected) PG Care Time/CCT Total # of Minutes Spent Total Time Spent with Patient: Total time spent is greater than 50% in coordination of care (as documented) at patient's floor/unit and/or counseling patient: Coding Level of Care Code 57706 INT INP/OBS CARE MIN Diagnoses H/O: GI bleed Z87.19
--- NOTE | 2023-11-24 14:08 | XRay Report ---
XR cervical spine w flex/ext CLINICAL HISTORY: Neck pain. COMPARISON STUDY: Cervical spine CT September 12, 2020. CTA of the neck November 22, 2023. FINDINGS: This exam is compromised given difficulty positioning and evaluation during flexion and ext ension is difficult. No cervical spine fractures are identified. There is reversal of the cervical lo rdosis and rightward tilt of the head. Portions of the cervical spine are obscured by the shoulders a nd occiput. There is moderate to severe multilevel disc space narrowing, endplate osteophytosis and f acet arthrosis within the cervical spine. IMPRESSION: 1. Exam significantly compromised given difficulty positioning. Reversal of the cervical lordosis wit h rightward tilt of the head. Near nondiagnostic evaluation for stability during flexion and extensio n, as described above. 2. No definite cervical spine fractures. 3. Moderate to severe multilevel degenerative disc disease and facet arthrosis within the cervical sp ine. ACT 112: Negative or not required by law. Electronically signed by: Jeremiah Villaseñor M.D. 11/24/2023 2:06 PM
[2023-11-24] MEDS: carvediloL 6.25 MG TAB PO SCH (16:31)
--- NOTE | 2023-11-24 16:48 | Electrocardiogram Report ---
Test Reason : Blood Pressure : */* mmHG Vent. Rate : 91 BPM Atrial Rate : 91 BPM P-R Int : 232 ms QRS Dur : 88 ms QT Int : 348 ms P-R-T Axes : 87 60 37 degrees QTcB Int : 428 ms Sinus rhythm with 1st degree A-V block with frequent Premature ventricular complexes Abnormal ECG When compared with ECG of 23-Nov-2023 10:32, Incomplete right bundle branch block is no longer Present Confirmed by Tim Hooks ([id number]) on 11/24/2023 4:48:32 PM Referred By: REFERRED SELF Confirmed By: Tim Hooks
[2023-11-24] MEDS: MAGNESIUM OXIDE 400 MG TAB PO SCH (19:45)
[2023-11-25 07:59] LABS: Basophils # (auto) 0.06 K/uL (0.00-0.20); Basophils % (auto) 0.4 %; Eosinophils # (auto) 0.08 K/uL (0.00-0.50); Eosinophils % (auto) 0.6 %; Hematocrit (blood only) 36.2 % (42.0-52.0); Hemoglobin 12.8 g/dl (14.0-18.0); Immature Granulocytes # (auto) 0.09 K/uL (0.01-0.20); Immature Granulocytes % (auto) 0.6 %; Lymphocytes # (auto) 0.36 K/uL (1.20-3.40); Lymphocytes % (auto) 2.6 %; Mean Corpuscular Hemoglobin 32.5 pg (25.0-34.0); Mean Corpuscular Hgb Conc 35.4 g/dL (32.0-36.0); Mean Corpuscular Volume 91.9 fL (80.0-100.0); Mean Platelet Volume 9.3 fL (9.4-12.4); Monocytes # (auto) 0.98 K/uL (0.11-0.59); Neutrophils # (auto) 12.41 K/uL (1.40-6.50); Neutrophils % (auto) 88.8 %; Platelet Count 184 K/uL (130-400); RDW Coefficient of Variation 14.7 % (11.5-14.5); RDW Standard Deviation 48.8 fL (36.4-46.3); Red Blood Count 3.94 M/uL (4.70-6.10); White Blood Count 13.98 K/ul (4.8-10.8)
[2023-11-25 08:20] LABS: Albumin Level 3.2 gm/dl (3.4-5.0); BUN Creatinine Ratio 16.7 (10-20); Bilirubin,Total 2.3 mg/dl (0.2-1.0); Creatinine Clr Calc Pharmacy 47.3 ml/min; Est GFR (African American) 70.6 ml/min; Globulin 3.1 gm/dl (2.5-4.0); Magnesium 1.7 mg/dl (1.7-2.4); Potassium 3.3 mmol/L (3.5-5.1); Total Protein 6.3 gm/dl (6.0-8.3)
[2023-11-25 08:26] LABS: ANTI-Xa, UFH(UnfractionatedHep 0.29 IU/ml (0.3-0.7); INR 1.2 (0.9-1.1); Prothrombin Time 13.1 Seconds (9.0-12.0)
--- NOTE | 2023-11-25 09:05 | Cardiology Progress Note ---
Date of Service November 25, 2023 Assessment & Plan (1) NSTEMI (non-ST elevated myocardial infarction): (2) Paroxysmal A-fib: (3) Murmur, cardiac: (4) Carotid stenosis: (5) Metabolic encephalopathy: (6) Acute kidney injury: Plan Mr. Arriaga is unable to provide much information this morning but seems to be without anginal symptoms. His troponin peaked at 1100 and trended down. Given his lack of anginal symptoms and current sepsis with delirium, he is being treated conservatively. He is currently on a heparin drip. He is appropriately on Coreg. GI recommends a goals of care discussion prior to discharge re:anticoagulation as he has a history of GI bleed and bleeding is an inherent risk with blood thinners. I would agree that a discussion of goals and possibly a palliative care consult would be helpful. His echo is without WMA, demonstrates normal LVF with elevated RVSP. His supplemental O2 needs have decreased today. Two nights ago he had desaturations and a significantly increased BNP and pleural effusions. I will give him another dose of IV furosemide this morning. Strict Is&Os and daily weights. His blood pressure remain hypertensive. Hopefully, he will agree to take his po medications this morning, if not we could use IV metoprolol. He is in and out of afib on the monitor with frequent PVCs. He is on anticoagulation and beta madina. Rate is acceptable. He has a consult in for vascular surgery for his carotid disease. Admission and Anticipated Discharge Date Admission Date: November 22, 2023 Subjective Mr. Arriaga is more confused this morning. He is refused to take his medications. He denies any chest pain but I'm not sure he is really understanding any of my questions. He continues to be in and out of afib on the monitor although it's little hard to tell if he is in a flutter this morning vs ST given the amount of artifact as he is very agitated. Review of Systems Review of Systems: All systems reviewed & are unremarkable except as noted in HPI & below Physical Exam Constitutional: WD/WN, vitals as above Respiratory: normal respiratory effort, lungs clear to auscultation Cardiovascular: Rate/Rhythm: + abnormal rate and + abnormal rhythm Heart Sounds: + murmur (systolic 3/6 llsb) Extremities: + edema Neurologic: moves all extremities and awake Psychiatric: Orientation: oriented to person Results & Data Vital Signs (Past 12 Hours) Vital Signs Temp Pulse Resp BP BP Pulse Ox O2 Del Method 11/25/23 07:28 36.6 C 96 H 18 189/94 H 98 Nasal Cannula 11/25/23 03:15 37 C 78 18 132/74 96 Nasal Cannula 11/25/23 00:03 37.1 C 86 16 146/73 H 98 Nasal Cannula 11/24/23 23:55 Nasal Cannula O2 Flow Rate 11/25/23 07:28 4 11/25/23 03:15 4 11/25/23 00:03 6 11/24/23 23:55 6
[2023-11-25] MEDS: MAGNESIUM SULFATE / D5W 1 GM/100 ML BAG IV SCH (09:19)
[2023-11-25] MEDS: FUROSEMIDE INJ 20 MG/2 ML VIAL IV ONE (09:19)
[2023-11-25] MEDS: POTASSIUM CHLORIDE CRTAB 20 MEQ TABCR PO STA ×2 (09:19→11:22)
--- NOTE | 2023-11-25 09:33 | Consultation ---
Date of Consultation November 25, 2023 Assessment & Plan (1) Carotid stenosis: Pt with BL carotid stenosis, but no definite TIA/CVA sx. Unable to relate any significant relevant information. 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 Discussed pt with Dr Wally monaco. Does not recommend vascular surgical intervention d/t no CVA sx, and intracranial stenosis. Related to pt, however, he may not comprehend. History of Present Illness Reason for Consultation: carotid stenosis Attending Physician: Vince Villa MD History of Present Illness 88 yo m with hx of HTN, GI bleed, a fib, NSTEMI, hypothyroidism, anemia, macular degeneration, carotid stenosis, admitted after being found at home with confusion and garbled speech and dx with encephalopathy, seen in consultation today for carotid stenosis noted on imaging. Pt currently unable to provide any pertinent hx. Hx obtained from previous provider notes. Pt currently denies any pain except in his feet. States he was aware of his carotid stenosis and was told he couldn't have surgery for this in the past. CTA neck demonstrates severe stenosis L ICA and also severe stenosis of intracranial L ICA. Allergies Allergy/AdvReac Type Severity Reaction Status Date / Time No Known Allergies Allergy Verified 11/22/23 17:05 Home Medications Medication Instructions Recorded Confirmed Type No Known Home Medications 11/22/23 11/22/23 History Patient History Medical History Influenza A Tinea unguium Cellulitis of leg, right Gastric ulcer GI bleed History of CVA (cerebrovascular accident) Elevated CK Hyperglycemia Insomnia Hypothyroidism Anxiety Alcohol abuse Hypertensive urgency Surgical History History of colonoscopy History of tonsillectomy History of cataract surgery Family History Mother , age 90 of uncertain causes. Anxiety Father , age 55 of pulmonary disease and alcoholism Lung disease Sister Kidney stone Denies family history of Ovarian cancer Prostate cancer Myocardial infarction Breast cancer Colorectal cancer Social History Smoking Status: Unknown if ever smoked Tobacco Type: Cigarettes Age Started Using Tobacco: 20; Age Quit Using Tobacco: 60; Cigarettes Per Day: social smoker, off and on; Second Hand Exposure: No; Do You Dip or Chew Tobacco: No; Hx Alcohol Use: No Hx Substance Use: No Preferred Language: Polish Communication Ability: Impaired Visual Impairment: No Limitations Hearing Ability: Normal Upper Cutter Machine Required: No Beliefs That Will Affect Care: None marital status: Current Living Situation: Alone Current Living Situation Comment: Lives alone with spouse who is WCB current occupational status: retired 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 Other Information That Helps Us Care for You: No Feels Safe at Home: Declines to Answer Childhood Exposure to Second-Hand Smoke: Yes Diet: regular Dental Care, Regularly: No Physical Activity Frequency: Does not Exercise Seatbelt Use: always Sunscreen Use: No Assistive Devices: Glasses Review of Systems Review of Systems: All systems reviewed & are unremarkable except as noted in HPI & below Physical Exam Constitutional: well developed, + frail appearing and + disheveled; not in distress Respiratory: normal respiratory effort, lungs clear to auscultation Auscultation: + diminished lung sounds Cardiovascular: Rate/Rhythm: + irregularly irregular Vessels: posterior tibial pulses present (BL dopplerable) and dorsalis pedis pulses present (RLE +1, LLE dopplerable); + abnormal peripheral pulses Extremities: normal capillary refill and + edema Gastrointestinal (Abdomen): Inspection/Auscultation: abdomen normal to inspection and normal bowel sounds Percussion/Palpation: abdomen soft; abdomen nontender Musculoskeletal: Extremities: strength 5/5 throughout Skin: no rashes, warm and dry + crusts and + lichenification Neurologic: moves all extremities, awake (responds to name, but refuses to open eyes) and + confused Psychiatric: Orientation: oriented to person; + not oriented to place and + not oriented to time Results & Data Vital Signs (Past 12 Hours) Vital Signs Temp Pulse Resp BP BP Pulse Ox O2 Del Method 11/25/23 07:28 36.6 C 96 H 18 189/94 H 98 Nasal Cannula 11/25/23 03:15 37 C 78 18 132/74 96 Nasal Cannula 11/25/23 00:03 37.1 C 86 16 146/73 H 98 Nasal Cannula 11/24/23 23:55 Nasal Cannula O2 Flow Rate 10/01/24 07:28 4 11/25/23 03:15 4 11/25/23 00:03 6 11/24/23 23:55 6
[2023-11-25] MEDS ORDERED: Nursing to Pharmacy Communication STA (10:57)
--- NOTE | 2023-11-25 11:15 | Hospitalist Progress Note ---
Date of Service November 25, 2023 Assessment & Plan (1) Sepsis: (2) Metabolic encephalopathy: (3) Afib: (4) NSTEMI (non-ST elevated myocardial infarction): (5) Carotid stenosis: (6) H/O: GI bleed: (7) Hypertension: (8) H/O alcohol dependence: Plan 88-year-old male with past medical history of left carotid artery stenosis, history of GI bleed secondary to ulcer, history of alcohol use disorder, hypertension who was found on the floor in his house by his caregiver and was brought to the hospital. Patient was found to be obtunded and septic and also found to be in A-fib with RVR #Sepsis present on admission, source likely pneumonia, likely aspiration pneumonia #Suspected aspiration pneumonia #Acute metabolic encephalopathy Lactic acid levels have EYES: Pupils round equal and react to light, extraocular movements full, no injection. MRSA screen is positive Blood cultures from 11/22/2023 show no growth at 48 hours Respiratory bio fire is negative Procalcitonin elevated CT of the chest from 11/23/2023 shows no evidence of PE and showed some patchy airspace consolidation throughout the right upper lobe typical for pneumonia/aspiration pneumonitis. Continue IV Zosyn plus IV vancomycin (day 3) White count is elevated, monitor white count CT of the head showed no evidence of hemorrhage, mass effect and showed mild to moderate stenosis of the left supraclinoid internal carotid arteries bilaterally with left greater than right and near complete thrombosis of the origin of the left internal carotid artery. MRI of the brain from 11/23/2023 showed no acute intracranial abnormality. It did show some small chronic left posterior parieto-occipital infarcts. Neurology saw the patient and at this point have not recommended any LP TSH is 2.576 B12 is 1004 Neurology is recommending C-spine x-ray Neurology recommended C-spine x-ray which showed no fractures but showed severe degenerative disease Patient is currently requiring mitts on his hands to prevent him from pulling on his Hernandez catheter, lines and oxygen Trial of Zyprexa 2.5 mg ODT nightly as needed for anxiety/agitation #Atrial fibrillation #NSTEMI #Essential hypertension #Carotid stenosis #Small chronic left posterior parieto-occipital infarcts #Acute on chronic diastolic congestive heart failure with preserved ejection fraction of 65% CT of the neck shows mild to moderate stenosis of the supraclinoid internal carotid arteries bilaterally, left greater than right. There is a short segment of near complete thrombosis of the origin of the left internal carotid artery. MRI of the brain from 11/23/2023 showed no acute intracranial abnormality. It d id show some small chronic left posterior parieto-occipital infarcts. Echo from 11/23/2023 shows moderate concentric left ventricular hypertrophy, left ventricular is hyperdynamic, EF is 65 to 70% with grade 1 diastolic dysfunction. Mild tricuspid regurgitation, right ventricular systolic pressure elevated at 40 to 50 mmHg TSH is 2.576 Troponin peaked at 1288 A1c is 5.3 Triglycerides are 77 LDL is 65 HDL is 43 Total cholesterol is 123 Cardiology saw the patient and recommended heparin infusion for now along with aspirin Patient is on a beta-madina carvedilol: Increased to 6.25 mg twice daily Continue amlodipine 5 mg p.o. daily Patient received IV Lasix by cardiology on 11/23/2021 and again 1 more dose of IV Lasix this morning by cardiology I/O monitoring Daily weights Conservative management for NSTEMI per cardiology for now Vascular surgery has been consulted per cardiology recommendations: Vascular surgery saw the patient and vascular surgery does not recommend vascular surgical intervention at this point due to no CVA symptoms. Neurology and cardiology both feel that patient will need to be on anticoagulation but given history of GI bleed will need clearance from GI for long-term anticoagulation versus antiplatelet therapy with Plavix GI consulted and have recommended patient can be started on anticoagulation along with PPI and to avoid NSAIDs I spoke with the neurology team Dr. Merrill and he is okay with patient starting anticoagulation I also spoke with bale coverer Dr. Tia Davison via secure chat on [employer]: She is recommended to continue heparin and transition over to Eliquis 2.5 mg p.o. twice daily If patient allows nursing staff to give him oral medications then transition to oral Eliquis 2.5 mg twice daily per cardiology recommendations in a.m. #Bilateral lower extremity chronic skin changes with suspected cellulitis Erythema has improved after IV antibiotics Bilateral lower extremity Dopplers were negative for DVT D-dimer was elevated at 2320 CTA chest did not show any evidence of PE #History of GI bleed secondary to gastric ulcer in 2021 Patient was found to have a GI bleed in the setting of NSAID use in 2021. He had an EGD which showed gastric ulcer with visible vessel treated with APC and clipped Currently no evidence of bleeding H&H is stable Avoid all NSAIDs Continue IV Protonix #History of alcohol use disorder Continue multivitamin plus thiamine plus folic acid #Elevated liver enzymes/transaminitis CT abdomen reviewed and liver is normal in size, contour and attenuation. There is no intrahepatic biliary ductal dilatation. The hepatic veins and portal veins are patent. Likely related to sepsis Hepatitis screen is pending Monitor LFTs CODE STATUS: DNR/DNI DVT prophylaxis: Bilateral SCDs PT/OT have recommended SNF on discharge Care plan discussed with nursing staff. patient's son Jamie ([phone]) updated on the phone: I had a long conversation with patient's son regarding patient's condition, refusing medications, encephalopathy. I discussed getting palliative care involved. Patient's son wants to see how patient does over the next 24 to 48 hours and if there is no improvement or patient is declining then he he will consider discussing palliative care/hospice care. Admission and Anticipated Discharge Date Admission Date: November 22, 2023 Subjective Patient seen and examined Labs reviewed Patient refused all his morning meds but agreed to take them when I was with him in the room. Nursing staff gave him morning meds with applesauce during my visit He is still confused, he is aware he is in the hospital and responds to his name Unable to get a full review of systems due to patient's mentation: Patient denies any pain. He appears comfortable He is currently requiring mitts as he is trying to pull out Hernandez catheter Social history: Obtained from son. Patient's in April 2023. Patient has caregivers for 3 to 4 hours/day (private pay caregivers). Patient's son speaks to him on the phone every day. Review of Systems Review of Systems: As per HPI Physical Exam Physical Exam: General: No acute distress Psych: Awake and oriented to self. He is aware of being in the hospital HEENT: Anicteric sclera, dry oral mucosa CVS: Irregular rate and rhythm, systolic murmur audible Lungs: Bilateral air entry with diminished breath sounds at bases, no wheezing noted Abdomen: Soft, nontender, no rebound, no guarding Ext: Bilateral lower extremity improving edema with chronic skin changes noted with improving erythema of bilateral lower extremity right greater than left : Hernandez catheter in place Results & Data Results & Data Vital Signs (Past 12 Hours) Vital Signs Temp Pulse Pulse Resp BP BP Pulse Ox 11/25/23 10:49 37.7 C H 90 20 160/76 H 98 11/25/23 09:46 97 H 11/25/23 09:40 11/25/23 07:28 36.6 C 96 H 18 189/94 H 98 11/25/23 03:15 37 C 78 18 132/74 96 11/25/23 00:03 37.1 C 86 16 146/73 H 98 11/24/23 23:55 O2 Del Method O2 Flow Rate 11/25/23 10:49 Nasal Cannula 4 11/25/23 09:46 11/25/23 09:40 Nasal Cannula 4 11/25/23 07:28 Nasal Cannula 4 11/25/23 03:15 Nasal Cannula 4 11/25/23 00:03 Nasal Cannula 6 11/24/23 23:55 Nasal Cannula 6 Laboratory Results Laboratory Results - last 24 hr 11/25/23 07:37 WBC 13.98 H RBC 3.94 L Hgb 12.8 L Hct 36.2 L MCV 91.9 MCH 32.5 MCHC 35.4 RDW Std Deviation 48.8 H RDW Coeff of Randall 14.7 H Plt Count 184 MPV 9.3 L Immature Gran % (Auto) 0.6 Neut % (Auto) 88.8 Lymph % (Auto) 2.6 [place] % (Auto) 7.0 Eos % (Auto) 0.6 Baso % (Auto) 0.4 Neut # (Auto) 12.41 H Lymph # (Auto) 0.36 L [place] # (Auto) 0.98 H Eos # (Auto) 0.08 Baso # (Auto) 0.06 Immature Gran # (Auto) 0.09 PT 13.1 H INR 1.2 H Heparin Anti-Xa, Unfract 0.29 L Sodium 135 L Potassium 3.3 L Chloride 97 L Carbon Dioxide 29 Anion Gap 9 BUN 18 Creatinine 1.08 Est Cr Clr Drug Dosing 47.3 Est GFR ( Amer) 70.6 Est GFR (Non-Af Amer) 61.0 BUN/Creatinine Ratio 16.7 Glucose 112 H Calcium 8.0 L Magnesium 1.7 Total Bilirubin 2.3 H AST 101 H ALT 38 Alkaline Phosphatase 62 Total Protein 6.3 Albumin 3.2 L Globulin 3.1 Albumin/Globulin Ratio 1.0 Hep Bs Antigen Pending Hepatitis C Antibody Pending Diagnostic Findings Spine Flexion/Extension X-Ray 11/24/23 12:41 XR cervical spine w flex/ext CLINICAL HISTORY: Neck pain. COMPARISON STUDY: Cervical spine CT September 12, 2020. CTA of the neck November 22, 2023. FINDINGS: This exam is compromised given difficulty positioning and evaluation during flexion and extension is difficult. No cervical spine fractures are identified. There is reversal of the cervical lordosis and rightward tilt of the head. Portions of the cervical spine are obscured by the shoulders and occiput. There is moderate to severe multilevel disc space narrowing, endplate osteophytosis and facet arthrosis within the cervical spine. IMPRESSION: 1. Exam significantly compromised given difficulty positioning. Reversal of the cervical lordosis with rightward tilt of the head. Near nondiagnostic evaluation for stability during flexion and extension, as described above. 2. No definite cervical spine fractures. 3. Moderate to severe multilevel degenerative disc disease and facet arthrosis within the cervical spine. ACT 112: Negative or not required by law. Electronically signed by: Jeremiah Villaseñor M.D. 11/24/2023 2:06 PM PG Care Time/CCT Total # of Minutes Spent Total Time Spent with Patient: Total time spent is greater than 50% in coordination of care (as documented) at patient's floor/unit and/or counseling patient: Coding Level of Care Code 54340 SUB INP/OBS CARE 3/50MIN Diagnoses Sepsis A41.9 Metabolic encephalopathy G93.41 Afib I48.91 NSTEMI (non-ST elevated myocardial infarction) I21.4 Carotid stenosis I65.29 H/O: GI bleed Z87.19 Hypertension I10 H/O alcohol dependence F10.21
[2023-11-25] MEDS: POTASSIUM CHLORIDE CRTAB 20 MEQ TABCR PO SCH (12:53)
[2023-11-25 16:29] LABS: ANTI-Xa, UFH(UnfractionatedHep 0.35 IU/ml (0.3-0.7)
[2023-11-25] MEDS: carvediloL 12.5 MG TAB PO SCH (16:33)
[2023-11-25] MEDS: OLANZapine ZYDIS 5 MG ORALLY DIS. TAB PO PRN (22:16)
--- NOTE | 2023-11-26 06:51 | Hospitalist Progress Note ---
Date of Service November 26, 2023 Assessment & Plan (1) Sepsis: Plan: 88-year-old male with past medical history of left carotid artery stenosis, history of GI bleed secondary to ulcer, history of alcohol use disorder, hypertension who was found on the floor in his house by his caregiver and was brought to the hospital. Patient was found to be obtunded and septic and also found to be in A-fib with RVR Sepsis present on admission, source aspiration pneumonia, pneumonia seen on CT chest on admission Acute metabolic encephalopathy present on admission, encephalopahty continues requiring mitts and prn antipsychotics MRSA screen is positive Blood cultures from 11/22/2023 show no growth at 48 hours Respiratory bio fire is negative IV Zosyn plus IV vancomycin CT of the head showed no evidence of hemorrhage, mass effect and showed mild to moderate stenosis of the left supraclinoid internal carotid arteries bilaterally with left greater than right and near complete thrombosis of the origin of the left internal carotid artery. MRI of the brain from 11/23/2023 showed no acute intracranial abnormality. It did show some small chronic left posterior parieto-occipital infarcts. (2) Afib: Plan: Rate controlled with carvedilol: Increased to 6.25 mg twice daily Continue amlodipine 5 mg p.o. daily coinsideration of anticoagulation of afib by cardiology limited by GI bleed Intermittent dosing of lasix by cardiology for HFpEF Conservative management for NSTEMI per cardiology for now facilities supervisor Dr. Tia Davison via secure chat on [employer]: She is recommended to continue heparin and transition over to Eliquis 2.5 mg p.o. twice daily If patient allows nursing staff to give him oral medications then transition to oral Eliquis 2.5 mg twice daily per cardiology recommendations in a.m. (3) H/O: GI bleed: Plan: Patient was found to have a GI bleed in the setting of NSAID use in 2021. He had an EGD which showed gastric ulcer with visible vessel treated with APC and clipped Neurology and cardiology both feel that patient will need to be on anticoagulation but given history of GI bleed will need clearance from GI for long-term anticoagulation versus antiplatelet therapy with Plavix GI consulted and have recommended patient can be started on anticoagulation along with PPI and to avoid NSAIDs (4) Carotid stenosis: Plan: Vascular surgery has been consulted per cardiology recommendations: Vascular surgery saw the patient and vascular surgery does not recommend vascular surgical intervention at this point due to no CVA symptoms. (5) H/O alcohol dependence: Plan: Continue multivitamin plus thiamine plus folic acid Elevated liver enzymes/transaminitis CT abdomen reviewed and liver is normal in size, contour and attenuation. There is no intrahepatic biliary ductal dilatation. The hepatic veins and portal veins are patent. Likely related to sepsis Hepatitis screen is pending Plan Bilateral lower extremity chronic skin changes with suspected cellulitis- Erythema has improved after IV antibiotics Bilateral lower extremity Doppler were negative for DVT, CTA chest did not show any evidence of PE anticoagulation per afib CODE STATUS: DNR/DNI DVT prophylaxis: Bilateral SCDs PT/OT have recommended SNF on discharge Care plan discussed with nursing staff. patient's son Jamie ([phone]) consideration of palliative care. Patient's son wants to see how patient does over the next 24 to 48 hours and if there is no improvement or patient is declining then he he will consider discussing palliative care/hospice care. Admission and Anticipated Discharge Date Admission Date: November 22, 2023 Subjective Mr gibson is more near his baseline today from my recollection, he has no focal complaints and is now cooperative, removing mitts Physical Exam Physical Exam: marked [place] cardiac is regular lungs are with some coarse breath sounds to upper lobes neurological is with global weakness Results & Data Results & Data Vital Signs (Past 12 Hours) Vital Signs Temp Pulse Pulse Resp BP BP Pulse Ox 11/26/23 03:37 98.2 F 69 18 114/58 L 99 11/25/23 23:59 78 11/25/23 23:00 11/25/23 22:34 99.0 F 72 18 107/75 96 11/25/23 21:00 11/25/23 19:52 98.4 F 73 20 129/71 97 Pulse Ox O2 Del Method O2 Del Method O2 Flow Rate O2 Flow Rate 11/26/23 03:37 Nasal Cannula 3 11/25/23 23:59 11/25/23 23:00 96 Nasal Cannula 3 11/25/23 22:34 Nasal Cannula 3 11/25/23 21:00 Nasal Cannula 3 11/25/23 19:52 Nasal Cannula 4 Laboratory Results review cbc review chemistry-low K+ augment PG Care Time/CCT Total # of Minutes Spent Total Time Spent with Patient: Total time spent is greater than 50% in coordination of care (as documented) at patient's floor/unit and/or counseling patient: Coding Level of Care Code 39685 SUB INP/OBS CARE 235MIN Diagnoses Sepsis A41.9 Afib I48.91 H/O: GI bleed Z87.19 Carotid stenosis I65.29 H/O alcohol dependence F10.21
--- NOTE | 2023-11-26 08:57 | Cardiology Progress Note ---
Date of Service November 26, 2023 Assessment & Plan (1) NSTEMI (non-ST elevated myocardial infarction): (2) Paroxysmal A-fib: (3) Murmur, cardiac: (4) Carotid stenosis: (5) Metabolic encephalopathy: (6) Acute kidney injury: Plan Mr. Arriaga is unable to provide much information this morning but seems to be without anginal symptoms. His troponin peaked at 1288 and trended down. Given his lack of anginal symptoms and current sepsis with delirium, he is being treated conservatively. He is currently on a heparin drip. He is appropriately on Coreg. cut back dose if HR < 50 GI recommends a goals of care discussion prior to discharge re:anticoagulation as he has a history of GI bleed and bleeding is an inherent risk with blood thinners. I would agree that a discussion of goals and possibly a palliative care consult would be helpful. His echo is without WMA, demonstrates normal LVEF with elevated RVSP. His supplemental O2 needs have decreased today. Two nights ago he had desaturations and a significantly increased BNP and pleural effusions. I will give him another dose of IV furosemide this morning. Strict Is&Os and daily weights. His blood pressure remain hypertensive. Hopefully, he will agree to take his po medications this morning, if not we could use IV metoprolol. He is in and out of afib on the monitor with frequent PVCs. He is on anticoagulation and beta madina. Rate is acceptable. He has a consult in for vascular surgery for his carotid disease. Likely not a candidate for any intervention at this point. Please note bilirubin 0.8 admit up to 2.3? etiology Will follow for now-no cardiac changes made. Admission and Anticipated Discharge Date Admission Date: November 22, 2023 Subjective Patient seen and examined Labs reviewed Very little po intake He is still confused, he is aware he is in the hospital and responds to his name Unable to get a full review of systems due to patient's mentation: Patient denies any pain. He appears comfortable He is currently requiring mitts as he is trying to pull out Hernandez catheter Social history: Obtained from son. Patient's in April 2023. Ne Fitzgerald noted that caretakers with him 3-4 hours daily but over the weekend one of his caretakers was in room and she told me that they are only with him 1 hour/day. Patient's son speaks to him on the phone every day. Review of Systems Review of Systems: All systems reviewed & are unremarkable except as noted in HPI & below and Unobtainable due to cognitive status Physical Exam Physical Exam: elderly debilitated Respiratory: diminished junky BS Cardiovascular: irregular Afib Results & Data Vital Signs (Past 12 Hours) Vital Signs Temp Pulse Pulse Resp BP BP Pulse Ox 11/26/23 07:00 36.3 C L 50 L 16 128/73 98 11/26/23 03:37 36.8 C 69 18 114/58 L 99 11/25/23 23:59 78 11/25/23 23:00 11/25/23 22:34 37.2 C 72 18 107/75 96 11/25/23 21:00 Pulse Ox O2 Del Method O2 Del Method O2 Flow Rate O2 Flow Rate 11/26/23 07:00 Room Air 11/26/23 03:37 Nasal Cannula 3 11/25/23 23:59 11/25/23 23:00 96 Nasal Cannula 3 11/25/23 22:34 Nasal Cannula 3 11/25/23 21:00 Nasal Cannula 3 Laboratory Results no new labs over night Medications Administered Current Inpatient Medications Amlodipine Besylate (Amlodipine Besylate 5 Mg Tab) 5 mg PO [facility] Stop: 12/23/23 13:44 Last Admin: 11/26/23 08:19 Dose: 5 mg Aspirin (Aspirin 81 Mg Ectab) [facility] [place]: 12/24/23 08:59 Last Admin: 11/26/23 08:19 Dose: 81 mg Carvedilol (Carvedilol 12.5 Mg Tab) 12.5 mg PO BIDM [facility] Stop: 12/25/23 16:59 Last Admin: 11/26/23 08:19 Dose: 12.5 mg Piperacillin Sod/Tazobactam Sod (Zosyn) 4.5 gm in 100 mls @ 25 mls/hr IV Q8H [facility] Stop: 11/30/23 01:59 Last Infusion: 11/26/23 08:18 Dose: Infused Thiamine HCl 100 mg/ Syringe 10 mls @ 2 mls/min [facility] [place]: 12/23/23 08:59 Last Admin: 11/26/23 08:20 Dose: 2 mls/min Folic Acid 1 mg/ Syringe 10 mls @ 5 mls/[facility] [place]: 12/23/23 08:59 Last Admin: 11/26/23 08:20 Dose: 5 mls/min Heparin Sodium/Dextrose (Heparin Sodium/Dextrose) 25,000 units in 500 mls @ 20 mls/hr IV .Q24H [facility]; Protocol Stop: 12/23/23 13:14 Last Titration: 11/26/23 07:12 Dose: 1,000 units/hr, 20 mls/hr Pantoprazole Sodium 40 mg/ (Syringe) 10 mls @ 5 mls/min IV DAILY [facility] Stop: 12/24/23 08:59 Last Admin: 11/26/23 08:20 Dose: 5 mls/min Vancomycin HCl 1,500 mg/ (Sodium Chloride) 530 mls @ 200 mls/hr IV Q24H [facility]; Protocol Stop: 11/30/23 22:59 Last Infusion: 11/26/23 01:46 Dose: Infused Magnesium Oxide (Magnesium Oxide 400 Mg Tab) 400 mg PO BID [facility] Stop: 11/27/23 20:59 Last Admin: 11/26/23 08:19 Dose: 400 mg Miscellaneous Information (Vancomycin Consult Active) 1 each N/A UD PRN PRN Reason: Consult Stop: 12/22/23 20:56 Multivitamins/Minerals (Cerovite Adv Formula Tab) 1 tab PO QAM [facility] Stop: 12/24/23 08:59 Last Admin: 11/26/23 08:19 Dose: 1 tab Olanzapine (Olanzapine Zydis 5 Mg Orally Dis. Tab) 2.5 mg PO HS PRN PRN Reason: Anxiety/Agitation Stop: 11/27/23 17:06 Last Admin: 11/25/23 22:16 Dose: 2.5 mg ECG Additional Comments: Afib with PVCs on monitor
[2023-11-26 09:53] LABS: Basophils # (auto) 0.04 K/uL (0.00-0.20); Basophils % (auto) 0.4 %; Eosinophils # (auto) 0.18 K/uL (0.00-0.50); Eosinophils % (auto) 1.8 %; Hematocrit (blood only) 28.9 % (42.0-52.0); Hemoglobin 10.6 g/dl (14.0-18.0); Immature Granulocytes # (auto) 0.08 K/uL (0.01-0.20); Immature Granulocytes % (auto) 0.8 %; Lymphocytes # (auto) 0.51 K/uL (1.20-3.40); Lymphocytes % (auto) 5.2 %; Mean Corpuscular Hemoglobin 33.3 pg (25.0-34.0); Mean Corpuscular Hgb Conc 36.7 g/dL (32.0-36.0); Mean Corpuscular Volume 90.9 fL (80.0-100.0); Mean Platelet Volume 10.4 fL (9.4-12.4); Monocytes # (auto) 0.96 K/uL (0.11-0.59); Monocytes % (auto) 9.8 %; Neutrophils # (auto) 8.07 K/uL (1.40-6.50); Platelet Count 181 K/uL (130-400); RDW Coefficient of Variation 14.8 % (11.5-14.5); RDW Standard Deviation 49.4 fL (36.4-46.3); Red Blood Count 3.18 M/uL (4.70-6.10); White Blood Count 9.84 K/ul (4.8-10.8)
[2023-11-26 10:06] LABS: Albumin Level 2.8 gm/dl (3.4-5.0); BUN Creatinine Ratio 20.3 (10-20); Bilirubin,Total 1.5 mg/dl (0.2-1.0); Calcium 7.8 mg/dl (8.6-10.3); Creatinine Clr Calc Pharmacy 41.5 ml/min; Est GFR (African American) 60.4 ml/min; Est GFR (Non-African American) 52.1 ml/min; Globulin 2.7 gm/dl (2.5-4.0); Magnesium 2.1 mg/dl (1.7-2.4); Potassium 3.2 mmol/L (3.5-5.1); Total Protein 5.5 gm/dl (6.0-8.3)
[2023-11-26 10:09] LABS: ANTI-Xa, UFH(UnfractionatedHep 0.31 IU/ml (0.3-0.7); INR 1.2 (0.9-1.1); Prothrombin Time 12.6 Seconds (9.0-12.0)
[2023-11-26 10:12] LABS: Hep B Surface Ag with confirm Negative (Negative)
[2023-11-26 10:15] LABS: Hep C Ab Rflx HepCQuant RNA Negative (Negative)
[2023-11-26 14:23] LABS: Hepatitis A Antibody IgM NON-REACTIVE (NON-REACTIVE); Hepatitis B Core Antibody IgM NON-REACTIVE (NON-REACTIVE)
[2023-11-26] MEDS: POTASSIUM CHLORIDE / WTR 10 MEQ/100 ML PLCT IV SCH (18:50)
[2023-11-26] MEDS: QUEtiapine FUMARATE 25 MG TABLET PO ONE (19:00)
[2023-11-26] MEDS: QUEtiapine FUMARATE 25 MG TABLET PO SCH (22:30)
[2023-11-27 08:18] LABS: Creatinine Clr Calc Pharmacy 50.1 ml/min
--- NOTE | 2023-11-27 10:50 | Neurology Progress Note ---
Date of Service November 27, 2023 Assessment & Plan (1) Acute encephalopathy: (2) Neck pain: (3) Carotid stenosis: (4) NSTEMI (non-ST elevated myocardial infarction): (5) Paroxysmal A-fib: Plan Patient has an acute encephalopathy (on admission November 21) likely due to effects of sepsis. Mentation is fairly clear today without overt confusion. He is tired. Given his advanced age, I cannot exclude a mild underlying dementia superimposed. Otherwise, he does not have any significant focal abnormalities. He does have neck stiffness and pain which I think is mechanical as opposed to "meningitis". He holds his neck to the right continuously. This is likely secondary to degenerative condition of his neck. He has significant left internal carotid artery stenosis (2 places) some right carotid stenosis in 2 places as well. This is somewhat worse compared to previo us studies. He is at high risk for stroke given his paroxysmal atrial fibrillation, advanced age, and hypertension. Patient had GI bleeding in the past but is now on anticoagulation. Patient has a NSTEMI MRI Recommendations: 1. Given his carotid stenosis he would be a clopidogrel 75 mg daily candidate. 2. Given atrial fibrillation, he would be a anticoagulation candidate. 3. Although GI consultation felt that it was safe for him to be on anticoagulation, if needed, we were to avoid nonsteroidal anti-inflammatory agents. Clopidogrel could be used. Currently there is discussion with cardiology as to what to start, if anything. There is consideration of palliative care consult. 4. I see no reason for a lumbar puncture at this time 5. There is no need for an EEG 6. Ideally, an MRI of the cervical spine would be reasonable to see why he is holding his neck that way, although I realize it is difficult for him to get through the scanner. 7. Continue physical and occupational therapy increasing strength and ambulation. Overall, I spent a total 50 minutes with this case including review of records, direct evaluation the patient at bedside, report generation, and discussion of the case with the patient and RN at bedside and Dr. Lovelace, including differential diagnosis and treatment options. Admission and Anticipated Discharge Date Admission Date: November 22, 2023 Subjective Patient has a mild headache and continues to have neck pain but he feels improved in general. Blood pressure is 139/65 and he is afebrile. White count yesterday was normal at 9.4. Creatinine is normal at 1.0 today Cervical spine x-ray November 23 showed considerable multilevel significant degenerative disc and bone disease. He has reversal of cervical lordosis and rightward tilt of the head. Stability with flexion extension could not be ascertained. Results & Data Vital Signs (Past 12 Hours) Vital Signs Temp Pulse Pulse Resp BP BP Pulse Ox 11/27/23 08:32 36.5 C 50 L 17 159/65 H 99 11/27/23 02:40 36.7 C 77 19 149/68 H 95 11/27/23 00:35 11/27/23 00:07 36.8 C 64 16 136/71 98 11/26/23 23:32 76 O2 Del Method O2 Flow Rate 11/27/23 08:32 Nasal Cannula 3 11/27/23 02:40 Nasal Cannula 2 11/27/23 00:35 Nasal Cannula 3 11/27/23 00:07 Nasal Cannula 2 11/26/23 23:32 Exam (Neuro) Physical Exam: He is awake and alert. Speech is without aphasia or dysarthria. Mood seems reasonable and affect is appropriate. Thought processes are intact to name and place but he did not give his correct age Extraocular eye muscle seems intact on the left. He keeps his right leg close but he is much less swollen and edematous with the right leg today compared to earlier this week. There is no facial droop. Coordination seems reasonable in the arms and strength is symmetrical. Arm strength seems close to 5/5 diffusely. Proximal leg strength is weak bilaterally and distal strength is reasonable bilaterally PG Care Time/CCT Total # of Minutes Spent Total Time Spent with Patient: Total time spent is greater than 50% in coordination of care (as documented) at patient's floor/unit and/or counseling patient: Coding Level of Care Code 89902 SUB INP/OBS CARE 3/50MIN Diagnoses Acute encephalopathy G93.40 Neck pain M54.2 Carotid stenosis I65.29 NSTEMI (non-ST elevated myocardial infarction) I21.4 Paroxysmal A-fib I48.0 Time Spent (min) 50
--- NOTE | 2023-11-27 13:47 | Pharmacy Report ---
Pharmacy PK ABX Note - Date of Service November 27, 2023 - Assessment and Plan Assessment 88 year old M receiving Vancomycin and Zosyn for treatment of pneumonia/sepsis/BL lower extremity cellulitis. * Day #6 of antimicrobial therapy. * Labs/Vitals: Renal function remains stable. Afebrile. Leukocytosis improving. * Micro: MRSA nasal swab positive. Blood cultures no growth @48 hours. * Discussed with hospitalist yesterday - patient is to complete 7 days of antibiotic treatment Plan Vancomycin * Current regimen: 1500 mg IV every 24 hours * Random level obtained 11/27/23 resulted as 17.9 mcg/mL. This is predicted to achieve target AUC/YAZMIN of 400-600 mg/L.hr * Predicted AUC at steady state: 524 mg/L.hr * Continue 1500 mg IV every 24 hours * Will repeat level in the next 48-72 hours if therapy is continued beyond 7 days and/or change in patient clinical status Zosyn * 4.5 g IV every 8 hours Pharmacy will continue to follow and will adjust dose/frequency as necessary. Thank you. Pharmacy has transitioned to AUC monitoring for vancomycin. AUC/YAZMIN is the preferred PK/PD target and is associated with decreased risk of nephrotoxicity compared to traditional trough targets.
--- NOTE | 2023-11-27 17:52 | Hospitalist Progress Note ---
Date of Service November 27, 2023 Assessment & Plan (1) Sepsis: Plan: 88-year-old male with past medical history of left carotid artery stenosis, history of GI bleed secondary to ulcer, history of alcohol use disorder, hypertension who was found on the floor in his house by his caregiver and was brought to the hospital. Patient was found to be obtunded and septic and also found to be in A-fib with RVR (since recurred to sinus rhythm) Sepsis present on admission, source aspiration pneumonia, pneumonia seen on CT chest on admission Acute metabolic encephalopathy present on admission, encephalopathy continues attempting at bedtime Seroquel and melatonin to improve delirium MRSA screen is positive Blood cultures from 11/22/2023 show no growth at 48 hours Respiratory bio fire is negative IV Zosyn plus IV vancomycin to complete [address] of the head showed no evidence of hemorrhage, mass effect and showed mild to moderate stenosis of the left supraclinoid internal carotid arteries bilaterally with left greater than right and near complete thrombosis of the origin of the left internal carotid artery. MRI of the brain from 11/23/2023 showed no acute intracranial abnormality. It did show some small chronic left posterior parieto-occipital infarcts. (2) Afib: Plan: Rate controlled with carvedilol: Eventually converted to sinus rhythm with first-degree block Carvedilol 12.5 mg twice daily Continue amlodipine 5 mg p.o. daily consideration of anticoagulation of afib by cardiology limited by GI bleed, GI bleed has been stable transition to Eliquis 2.5 twice daily Intermittent dosing of lasix by cardiology for HFpEF none recently Medical management for NSTEMI per cardiology EF shows preserved ejection fraction (3) Carotid stenosis: Plan: Vascular surgery has been consulted per cardiology recommendations: Vascular surgery saw the patient and vascular surgery does not recommend vascular surgical intervention at this point due to no CVA symptoms. (4) H/O alcohol dependence: Plan: Continue multivitamin plus thiamine plus folic acid Elevated liver enzymes/transaminitis CT abdomen reviewed and liver is normal in size, contour and attenuation. There is no intrahepatic biliary ductal dilatation. The hepatic veins and portal veins are patent. Likely related to sepsis Hepatitis screen is pending (5) H/O: GI bleed: Plan: Patient was found to have a GI bleed in the setting of NSAID use in 2021. He had an EGD which showed gastric ulcer with visible vessel treated with APC and clipped Neurology and cardiology both feel that patient will benefit from anticoagulation GI consulted and have recommended patient can be started on anticoagulation al baljinder with PPI and to avoid NSAIDs Plan Bilateral lower extremity chronic skin changes with suspected cellulitis- Erythema has improved after IV antibiotics Bilateral lower extremity Doppler were negative for DVT, CTA chest did not show any evidence of PE anticoagulation per afib CODE STATUS: DNR/DNI DVT prophylaxis: Bilateral SCDs PT/OT have recommended SNF on discharge patient's son Jamie ([phone]) discussed case with Jamie on 11/25 at that point time Jamie wished to try to continue to treat his father and see how he improves even with consideration of detention home placement if appropriate. Cannot reach on 11/26 and unable to leave message Admission and Anticipated Discharge Date Admission Date: November 22, 2023 Subjective pt is confused and appears weak, will try to remove mitts today, increase Seroquel at night has been recovering from pneumonia Physical Exam Physical Exam: marked tortic[place] cardiac is regular lungs are with some coarse breath sounds to upper lobes neurological is with global weakness Results & Data Results & Data Vital Signs (Past 12 Hours) Vital Signs Temp Pulse Pulse Resp BP Pulse Ox O2 Del Method 11/27/23 16:35 166/75 H 11/27/23 15:45 74 16 91 Room Air 11/27/23 15:23 Nasal Cannula 11/27/23 11:21 98.1 F 74 19 169/51 H 93 Room Air 11/27/23 08:32 97.7 F 50 L 17 159/65 H 99 Nasal Cannula O2 Flow Rate 11/27/23 16:35 11/27/23 15:45 11/27/23 15:23 3 11/27/23 11:21 11/27/23 08:32 3 Laboratory Results Reviewed creatinine GFR and vancomycin random level PG Care Time/CCT Total # of Minutes Spent Total Time Spent with Patient: Total time spent is greater than 50% in coordination of care (as documented) at patient's floor/unit and/or counseling patient: Coding Level of Care Code 37159 SUB INP/OBS CARE 3/50MIN Diagnoses Sepsis A41.9 Afib I48.91 Carotid stenosis I65.29 H/O alcohol dependence F10.21 H/O: GI bleed Z87.19
[2023-11-27] MEDS: APIXABAN 2.5 MG TAB PO SCH (21:05)
[2023-11-27] MEDS: QUEtiapine FUMARATE 25 MG TABLET PO SCH (21:06)
[2023-11-27] MEDS: MELATONIN 3 MG TAB PO SCH (21:06)
[2023-11-28 08:03] LABS: Basophils # (auto) 0.07 K/uL (0.00-0.20); Basophils % (auto) 0.5 %; Eosinophils # (auto) 0.06 K/uL (0.00-0.50); Eosinophils % (auto) 0.5 %; Hematocrit (blood only) 24.2 % (42.0-52.0); Hemoglobin 8.5 g/dl (14.0-18.0); Immature Granulocytes # (auto) 0.28 K/uL (0.01-0.20); Immature Granulocytes % (auto) 2.2 %; Lymphocytes # (auto) 0.58 K/uL (1.20-3.40); Lymphocytes % (auto) 4.5 %; Mean Corpuscular Hemoglobin 32.7 pg (25.0-34.0); Mean Corpuscular Hgb Conc 35.1 g/dL (32.0-36.0); Mean Corpuscular Volume 93.1 fL (80.0-100.0); Monocytes # (auto) 1.34 K/uL (0.11-0.59); Monocytes % (auto) 10.3 %; Neutrophils # (auto) 10.67 K/uL (1.40-6.50); Nucleated RBC # (auto) 0.03 K/uL (0.00-0.12); Nucleated RBC % (auto) 0.2 %; Platelet Count 214 K/uL (130-400); RDW Coefficient of Variation 14.9 % (11.5-14.5); RDW Standard Deviation 50.6 fL (36.4-46.3)
[2023-11-28 08:22] LABS: Albumin Level 2.6 gm/dl (3.4-5.0); BUN Creatinine Ratio 23.4 (10-20); Bilirubin,Total 1.6 mg/dl (0.2-1.0); Calcium 7.8 mg/dl (8.6-10.3); Creatinine Clr Calc Pharmacy 49.9 ml/min; Globulin 2.5 gm/dl (2.5-4.0); Magnesium 1.8 mg/dl (1.7-2.4); Potassium 3.2 mmol/L (3.5-5.1); Total Protein 5.1 gm/dl (6.0-8.3)
[2023-11-28] MEDS: PANTOprazole 40 MG TAB PO SCH (09:42)
--- NOTE | 2023-11-28 11:45 | Hospitalist Progress Note ---
Date of Service November 28, 2023 Assessment & Plan (1) Sepsis: (2) Metabolic encephalopathy: (3) NSTEMI (non-ST elevated myocardial infarction): (4) Carotid stenosis: (5) Paroxysmal A-fib: (6) H/O: GI bleed: (7) Hypertension: (8) H/O alcohol dependence: Plan 88-year-old male with past medical history of left carotid artery stenosis, history of GI bleed secondary to ulcer, history of alcohol use disorder, hypertension who was found on the floor in his house by his caregiver and was brought to the hospital. Patient was found to be obtunded and septic and also found to be in A-fib with RVR #Sepsis present on admission, source likely pneumonia, likely aspiration pneumonia #Suspected aspiration pneumonia #Acute metabolic encephalopathy Lactic acid levels have improved MRSA screen is positive Blood cultures from 11/22/2023 show no growth at 48 hours Respiratory bio fire is negative Procalcitonin elevated CT of the chest from 11/23/2023 shows no evidence of PE and showed some patchy airspace consolidation throughout the right upper lobe typical for pneumonia/aspiration pneumonitis. Continue IV Zosyn plus IV vancomycin (day 6/7) White count is improved CT of the head showed no evidence of hemorrhage, mass effect and showed mild to moderate stenosis of the left supraclinoid internal carotid arteries bilaterally with left greater than right and near complete thrombosis of the origin of the left internal carotid artery. MRI of the brain from 11/23/2023 showed no acute intracranial abnormality. It did show some small chronic left posterior parieto-occipital infarcts. Neurology saw the patient and at this point have not recommended any LP TSH is 2.576 B12 is 1004 Neurology recommended C-spine x-ray which showed no fractures but showed severe degenerative disease Continue Seroquel 50 mg p.o. nightly #Atrial fibrillation #NSTEMI #Essential hypertension #Carotid stenosis #Small chronic left posterior parieto-occipital infarcts #Acute on chronic diastolic congestive heart failure with preserved ejection fraction of 65% CT of the neck shows mild to moderate stenosis of the supraclinoid internal carotid arteries bilaterally, left greater than right. There is a short segment of near complete thrombosis of the origin of the left internal carotid artery. MRI of the brain from 11/23/2023 showed no acute intracranial abnormality. It did show some small chronic left posterior parieto-occipital infarcts. Echo from 11/23/2023 shows moderate concentric left ventricular hypertrophy, left ventricular is hyperdynamic, EF is 65 to 70% with grade 1 diastolic dysfunction. Mild tricuspid regurgitation, right ventricular systolic pressure elevated at 40 to 50 mmHg TSH is 2.576 Troponin peaked at 1288 A1c is 5.3 Triglycerides are 77 LDL is 65 HDL is 43 Total cholesterol is 123 Cardiology saw the patient and recommended heparin infusion for now along with aspirin Patient is on a beta-madina carvedilol: 6.25 mg twice daily. Patient was on 12.5 mg twice daily but doses were held due to bradycardia Continue amlodipine 5 mg p.o. daily Patient received intermittent doses of IV Lasix I/O monitoring Daily weights Conservative management for NSTEMI per cardiology for now Vascular surgery was consulted per cardiology recommendations: Vascular surgery saw the patient and vascular surgery does not recommend vascular surgical intervention at this point due to no CVA symptoms. Neurology and cardiology both feel that patient will need to be on anticoagulation but given history of GI bleed will need clearance from GI for long-term anticoagulation versus antiplatelet therapy with Plavix GI consulted and have recommended patient can be started on anticoagulation along with PPI and to avoid NSAIDs Neurology believes the patient would benefit from Plavix given carotid disease He is already on anticoagulation with apixaban 2.5 mg twice daily per cardiology recommendations #Bilateral lower extremity chronic skin changes with suspected cellulitis Erythema has improved after IV antibiotics Bilateral lower extremity Dopplers were negative for DVT D-dimer was elevated at 2320 CTA chest did not show any evidence of PE #History of GI bleed secondary to gastric ulcer in 2021 Patient was found to have a GI bleed in the setting of NSAID use in 2021. He had an EGD which showed gastric ulcer with visible vessel treated with APC and clipped Currently no evidence of bleeding H&H has dropped with hemoglobin currently at 8.5 Avoid all NSAIDs Continue Protonix 40 mg daily I have reached out to GI to reevaluate patient in case he needs an endoscopy given his history of gastric ulcer Monitor H&H #History of alcohol use disorder Continue multivitamin plus thiamine plus folic acid #Elevated liver enzymes/transaminitis CT abdomen reviewed and liver is normal in size, contour and attenuation. There is no intrahepatic biliary ductal dilatation. The hepatic veins and portal veins are patent. Likely related to sepsis Hepatitis screen is negative LFTs are improving Monitor LFTs intermittently #Hypokalemia #Hypomagnesemia Potassium magnesium replacement Monitor levels CODE STATUS: DNR/DNI DVT prophylaxis: Bilateral SCDs PT/OT have recommended SNF on discharge Care plan discussed with nursing staff. patient's son Jamie ([phone]) updated on the phone Admission and Anticipated Discharge Date Admission Date: November 22, 2023 Subjective Patient seen and examined Labs reviewed He is much more calm today, he is responding to his name and tells me he is aware in the hospital He recognize my voice He still confused but overall seems better than my last visit on 11/25/2023 Denies any chest pain or shortness of breath He is currently on room air He is taking his oral medications Physical Exam Physical Exam: General: No acute distress Psych: Awake and oriented to self. He is aware of being in the hospital HEENT: Anicteric sclera CVS: Irregular rate and rhythm, systolic murmur audible Lungs: Bilateral air entry with diminished breath sounds at bases, no wheezing noted Abdomen: Soft, nontender, no rebound, no guarding Ext: Bilateral lower extremity improving edema with chronic skin changes noted with improving erythema of bilateral lower extremity Results & Data Results & Data Vital Signs (Past 12 Hours) Vital Signs Temp Pulse Resp BP BP Pulse Ox O2 Del Method 11/28/23 11:33 37.1 C 71 16 152/55 H 90 Room Air 11/28/23 10:45 Nasal Cannula 11/28/23 08:02 36.6 C 65 20 152/64 H 94 Room Air 11/28/23 03:10 36.7 C 80 16 197/64 H 93 Room Air O2 Flow Rate 11/28/23 11:33 11/28/23 10:45 3 11/28/23 08:02 11/28/23 03:10 Laboratory Results Laboratory Results - last 24 hr 11/27/23 11/28/23 11:58 07:47 WBC 13.00 H RBC 2.60 L Hgb 8.5 L Hct 24.2 L MCV 93.1 MCH 32.7 MCHC 35.1 RDW Std Deviation 50.6 H RDW Coeff of Randall 14.9 H Plt Count 214 MPV 10.0 Immature Gran % (Auto) 2.2 Neut % (Auto) 82.0 Lymph % (Auto) 4.5 [place] % (Auto) 10.3 Eos % (Auto) 0.5 Baso % (Auto) 0.5 Neut # (Auto) 10.67 H Lymph # (Auto) 0.58 L [place] # (Auto) 1.34 H Eos # (Auto) 0.06 Baso # (Auto) 0.07 Immature Gran # (Auto) 0.28 H Absolute Nucleated RBC 0.03 Nucleated RBC % (auto) 0.2 Sodium 136 Potassium 3.2 L Chloride 102 Carbon Dioxide 25 Anion Gap 9 BUN 26 H Creatinine 1.11 Est Cr Clr Drug Dosing 49.9 eGFR 63.87 BUN/Creatinine Ratio 23.4 H Glucose 135 H Calcium 7.8 L Magnesium 1.8 Total Bilirubin 1.6 H AST 41 H ALT 40 Alkaline Phosphatase 52 Total Protein 5.1 L Albumin 2.6 L Globulin 2.5 Albumin/Globulin Ratio 1.0 Random Vancomycin 17.9 PG Care Time/CCT Total # of Minutes Spent Total Time Spent with Patient: Total time spent is greater than 50% in coordination of care (as documented) at patient's floor/unit and/or counseling patient: Coding Level of Care Code 70562 SUB INP/OBS CARE 3/50MIN Diagnoses Sepsis A41.9 Metabolic encephalopathy G93.41 NSTEMI (non-ST elevated myocardial infarction) I21.4 Carotid stenosis I65.29 Paroxysmal A-fib I48.0 H/O: GI bleed Z87.19 Hypertension I10 H/O alcohol dependence F10.21
[2023-11-28] MEDS: MAGNESIUM SULFATE / D5W 1 GM/100 ML BAG IV ONE (16:30)
[2023-11-28] MEDS: POTASSIUM CHLORIDE CRTAB 20 MEQ TABCR PO STA (16:31)
[2023-11-28] MEDS: carvediloL 6.25 MG TAB PO SCH (16:31)
[2023-11-28] MEDS: MAGNESIUM OXIDE 400 MG TAB PO SCH (21:07)
[2023-11-28] MEDS: POTASSIUM CHLORIDE CRTAB 20 MEQ TABCR PO ONE (22:26)
[2023-11-29] MEDS: ACETAMINOPHEN 500 MG TAB PO PRN (03:56)
[2023-11-29 08:13] LABS: Hematocrit (blood only) 19.2 % (42.0-52.0); Hemoglobin 6.8 g/dl (14.0-18.0); Mean Corpuscular Hemoglobin 32.5 pg (25.0-34.0); Mean Corpuscular Hgb Conc 35.4 g/dL (32.0-36.0); Mean Corpuscular Volume 91.9 fL (80.0-100.0); Mean Platelet Volume 10.3 fL (9.4-12.4); Nucleated RBC # (auto) 0.05 K/uL (0.00-0.12); Nucleated RBC % (auto) 0.4 %; Platelet Count 231 K/uL (130-400); RDW Coefficient of Variation 15.2 % (11.5-14.5); RDW Standard Deviation 49.8 fL (36.4-46.3); Red Blood Count 2.09 M/uL (4.70-6.10); White Blood Count 12.88 K/ul (4.8-10.8)
[2023-11-29] MEDS ORDERED: SODIUM CHLORIDE 0.9% 250 ML IV PRN (08:34)
[2023-11-29 08:35] LABS: Calcium 7.7 mg/dl (8.6-10.3); Magnesium 2.1 mg/dl (1.7-2.4); Potassium 3.1 mmol/L (3.5-5.1)
[2023-11-29 08:41] LABS: BUN Creatinine Ratio 26.8 (10-20); Creatinine Clr Calc Pharmacy 43.6 ml/min
[2023-11-29 08:43] LABS: Basophils # (auto) 0.06 K/uL (0.00-0.20); Basophils % (auto) 0.5 %; Eosinophils # (auto) 0.27 K/uL (0.00-0.50); Eosinophils % (auto) 2.1 %; Immature Granulocytes % (auto) 3.9 %; Lymphocytes # (auto) 0.75 K/uL (1.20-3.40); Lymphocytes % (auto) 5.8 %; Monocytes # (auto) 1.28 K/uL (0.11-0.59); Monocytes % (auto) 9.9 %; Neutrophils # (auto) 10.02 K/uL (1.40-6.50); Neutrophils % (auto) 77.8 %; Polychromasia 1+
[2023-11-29] MEDS: FUROSEMIDE INJ 20 MG/2 ML VIAL IV ONE (08:49)
[2023-11-29] MEDS: POTASSIUM CHLORIDE CRTAB 20 MEQ TABCR PO STA (09:15)
--- NOTE | 2023-11-29 09:24 | Gastroenterology Progress Note ---
Date of Service November 29, 2023 Assessment & Plan (1) Anemia: Plan ASSESSMENT/RECOMMENDATIONS: Anemia - no obvious source but given his history and the increase in BUN coinciding with his drop in Hgb reasonable to assume UGI source ie recurrence of ulcer etc. Agree with transfusion/PPI and holding anticoagulation. I spoke via phone to patient's son, Jamie and updated him on the developments with his father in regards to his anemia. I discussed an EGD procedure with Jamie. The EGD procedure, alternatives including no work up or treatment, risks and benefits were discussed. Among the risks discussed included cardiorespiratory suppression, aspiration, bleeding, failure to diagnose cancer or other pathology and perforation requiring surgery. In addition we discussed that if specimens are obtained it may be deemed beneficial to send these for genetic/DNA testing. In addition I explained that in order to perform the procedure, the DNR/DNI order would need to be rescinded for the procedure and immediate post op recovery period. The patient's son claimed to understand all that was discussed, consented to all and all of his questions were answered. At the present time he does not want to consent or put his father through any endoscopy procedures. He would rather just have him receive the blood, hold the blood thinners and see how he does. We will continue to follow. Subjective IP GI Service was asked again to see patient secondary to drop in Hgb. Please refer to original GI consult from this admission from 11/24/2023. He was placed on anticoagulation for a-fib and his Hgb dropped without noticeable signs of GI bleed. Information is mainly taken from chart and staff as patient is pleasant but confused and his history is unreliable. Review of Systems Review of Systems: He denies any pain or vomiting or bowel movements although as above - he is confused and his history is unreliable. Physical Exam Physical Exam: Elderly WM in NAD Respiratory: Clear anteriorly Cardiovascular: Seems reg Gastrointestinal (Abdomen): NL BS, soft, nontender Neurologic: Confused did not know year or where he was. Results & Data Results & Data Vital Signs (Past 12 Hours) Vital Signs Temp Pulse Pulse Resp BP BP Pulse Ox 11/29/23 07:31 36.4 C L 62 18 131/59 L 92 11/29/23 03:15 36.7 C 71 20 172/64 H 91 11/29/23 00:40 63 11/28/23 23:12 37.3 C 65 20 146/75 H 91 10/04/24 22:08 O2 Del Method 11/29/23 07:31 Room Air 11/29/23 03:15 Room Air 11/29/23 00:40 11/28/23 23:12 Room Air 11/28/23 22:08 Room Air Laboratory Results Reviewed: Significant findings: Drop in Hgb and increase in BUN without significant rise in Creat PG Care Time/CCT Total # of Minutes Spent Total Time Spent with Patient: Total time spent is greater than 50% in coordination of care (as documented) at patient's floor/unit and/or counseling patient: Coding [place] [address] SUB INP/OBS CARE 25MIN Patient Type Established Medical Decision Making Moderate Complexity Diagnoses Anemia D64.9
[2023-11-29] MEDS: POTASSIUM CHLORIDE / WTR 10 MEQ/100 ML PLCT IV SCH (09:55)
--- NOTE | 2023-11-29 10:17 | Hospitalist Progress Note ---
Date of Service November 29, 2023 Assessment & Plan (1) Sepsis: (2) Metabolic encephalopathy: (3) NSTEMI (non-ST elevated myocardial infarction): (4) Carotid stenosis: (5) Paroxysmal A-fib: (6) H/O: GI bleed: (7) Hypertension: (8) H/O alcohol dependence: Plan 88-year-old male with past medical history of left carotid artery stenosis, history of GI bleed secondary to ulcer, history of alcohol use disorder, hypertension who was found on the floor in his house by his caregiver and was brought to the hospital. Patient was found to be obtunded and septic and also found to be in A-fib with RVR #Sepsis present on admission, source likely pneumonia, likely aspiration pneumonia #Suspected aspiration pneumonia #Acute metabolic encephalopathy Lactic acid levels have improved MRSA screen is positive Blood cultures from 11/22/2023 show no growth at 48 hours Respiratory bio fire is negative Procalcitonin elevated CT of the chest from 11/23/2023 shows no evidence of PE and showed some patchy airspace consolidation throughout the right upper lobe typical for pneumonia/aspiration pneumonitis. Patient's completed 7 days of IV antibiotics: IV Zosyn plus IV vancomycin today CT of the head showed no evidence of hemorrhage, mass effect and showed mild to moderate stenosis of the left supraclinoid internal carotid arteries bilaterally with left greater than right and near complete thrombosis of the origin of the left internal carotid artery. MRI of the brain from 11/23/2023 showed no acute intracranial abnormality. It did show some small chronic left posterior parieto-occipital infarcts. Neurology saw the patient and at this point have not recommended any LP TSH is 2.576 B12 is 1004 Continue Seroquel 50 mg p.o. nightly #Atrial fibrillation #NSTEMI #Essential hypertension #Carotid stenosis #Small chronic left posterior parieto-occipital infarcts #Acute on chronic diastolic congestive heart failure with preserved ejection fraction of 65% CT of the neck shows mild to moderate stenosis of the supraclinoid internal carotid arteries bilaterally, left greater than right. There is a short segment of near complete thrombosis of the origin of the left internal carotid artery. MRI of the brain from 11/23/2023 showed no acute intracranial abnormality. It did show some small chronic left posterior parieto-occipital infarcts. Echo from 11/23/2023 shows moderate concentric left ventricular hypertrophy, left ventricular is hyperdynamic, EF is 65 to 70% with grade 1 diastolic dysfunction. Mild tricuspid regurgitation, right ventricular systolic pressure elevated at 40 to 50 mmHg TSH is 2.576 Troponin peaked at 1288 A1c is 5.3 Triglycerides are 77 LDL is 65 HDL is 43 Total cholesterol is 123 Cardiology saw the patient and recommended heparin infusion for now along with aspirin Patient is on a beta-madina carvedilol: 6.25 mg twice daily. Continue amlodipine 5 mg p.o. daily Patient received intermittent doses of IV Lasix I/O monitoring Daily weights Conservative management for NSTEMI per cardiology for now Vascular surgery was consulted per cardiology recommendations: Vascular surgery saw the patient and vascular surgery does not recommend vascular surgical intervention at this point due to no CVA symptoms. Neurology and cardiology both feel that patient will need to be on anticoagulation but given history of GI bleed will need clearance from GI for long-term anticoagulation versus antiplatelet therapy with Plavix GI was initially consulted and have recommended patient can be started on anticoagulation along with PPI and to avoid NSAIDs Neurology believes the patient would benefit from Plavix given carotid disease He was on anticoagulation with apixaban 2.5 mg twice daily per cardiology recommendations Patient's hemoglobin dropped to 6.8 with no obvious source of GI bleed. Patient's son declined endoscopy and any blood transfusion and wants his father transition to comfort measures only with hospice care #Bilateral lower extremity chronic skin changes with suspected cellulitis Erythema has improved after IV antibiotics Bilateral lower extremity Dopplers were negative for DVT D-dimer was elevated at 2320 CTA chest did not show any evidence of PE #History of GI bleed secondary to gastric ulcer in 2021 #Suspected GI bleed #Anemia, likely acute blood loss from suspected GI bleed Patient was found to have a GI bleed in the setting of NSAID use in 2021. He had an EGD which showed gastric ulcer with visible vessel treated with APC and clipped Currently no evidence of bleeding H&H has dropped with hemoglobin currently at 8.5 Avoid all NSAIDs Continue Protonix 40 mg daily GI saw the patient this morning, patient's son declined EGD and initially had agreed to blood transfusion but then called me back to let me know that he spoke with the sister and they do not want any blood transfusions or procedures and want their father to be transition to comfort measures only with hospice care. #History of alcohol use disorder Continue multivitamin plus thiamine plus folic acid #Elevated liver enzymes/transaminitis CT abdomen reviewed and liver is normal in size, contour and attenuation. There is no intrahepatic biliary ductal dilatation. The hepatic veins and portal veins are patent. Likely related to sepsis Hepatitis screen is negative #Hypokalemia #Hypomagnesemia Potassium magnesium replacement CODE STATUS: DNR/DNI: I had a goals of care discussion with the patient's son Jamie on the phone. Jamie has also spoken with his sister and they have both decided to transition their father to comfort measures only with hospice care for end-of-life care. They do not want any blood draws, procedures, blood transfusions, IV antibiotics and their goal is to make sure patient is pain-free and comfortable. Patient transition to comfort measures only. Case management consulted for hospice care DVT prophylaxis: Bilateral SCDs Care plan discussed with nursing staff. patient's son Jamie ([phone]) updated on the phone Admission and Anticipated Discharge Date Admission Date: November 22, 2023 Subjective Patient seen and examined Hemoglobin is 6.8 Labs reviewed No melena or hematemesis noted by nursing staff Patient's mentation is better today although he is still confused Complaining of pain in his legs Denies any chest pain or shortness of breath GI saw the patient and spoke to patient's son Jamie regarding endoscopy and Jamie refused endoscopy. I also spoke with Jamie was also spoken with his sister and initially he had agreed to blood transfusions but after speaking to sister he has decided they want their father to be comfortable and on comfort measures only/hospice care and do not want any further procedures, blood draws, IV lines, blood transfusions and 1 temp to be pain-free and comfortable. Physical Exam Physical Exam: General: No acute distress, pale appearance Psych: Awake and oriented to self. He is aware of being in the hospital HEENT: Anicteric sclera CVS: Irregular rate and rhythm, systolic murmur audible Lungs: Bilateral air entry with diminished breath sounds at bases, no wheezing noted Abdomen: Soft, nontender, no rebound, no guarding Ext: Bilateral lower extremity improving edema with chronic skin changes noted with improving erythema of bilateral lower extremity Results & Data Results & Data Vital Signs (Past 12 Hours) Vital Signs Temp Pulse Pulse Resp BP BP Pulse Ox 11/29/23 07:31 36.4 C L 62 18 131/59 L 92 11/29/23 03:15 36.7 C 71 20 172/64 H 91 11/29/23 00:40 63 11/28/23 23:12 37.3 C 65 20 146/75 H 91 O2 Del Method 11/29/23 07:31 Room Air 11/29/23 03:15 Room Air 11/29/23 00:40 11/28/23 23:12 Room Air Laboratory Results Laboratory Results - last 24 hr 11/29/23 06:58 WBC 12.88 H RBC 2.09 L Hgb 6.8 L* Hct 19.2 L* MCV 91.9 MCH 32.5 MCHC 35.4 RDW Std Deviation 49.8 H RDW Coeff of Randall 15.2 H Plt Count 231 MPV 10.3 Immature Gran % (Auto) 3.9 Neut % (Auto) 77.8 Lymph % (Auto) 5.8 Moore % (Auto) 9.9 Eos % (Auto) 2.1 Baso % (Auto) 0.5 Neut # (Auto) 10.02 H Lymph # (Auto) 0.75 L Moore # (Auto) 1.28 H Eos # (Auto) 0.27 Baso # (Auto) 0.06 Immature Gran # (Auto) 0.50 H Absolute Nucleated RBC 0.05 Nucleated RBC % (auto) 0.4 Polychromasia 1+ Sodium 137 Potassium 3.1 L Chloride 103 Carbon Dioxide 27 Anion Gap 7 BUN 34 H Creatinine 1.27 Est Cr Clr Drug Dosing 43.6 eGFR 54.34 BUN/Creatinine Ratio 26.8 H Glucose 188 H Calcium 7.7 L Magnesium 2.1 Blood Type Pending Antibody Screen Pending Crossmatch See Detail PG Care Time/CCT Total # of Minutes Spent Total Time Spent with Patient: Total time spent is greater than 50% in coordination of care (as documented) at patient's floor/unit and/or counseling patient: Coding Level of Care Code 63025 SUB INP/OBS CARE 3/50MIN Diagnoses Sepsis A41.9 Metabolic encephalopathy G93.41 NSTEMI (non-ST elevated myocardial infarction) I21.4 Carotid stenosis I65.29 Paroxysmal A-fib I48.0 H/O: GI bleed Z87.19 Hypertension I10 H/O alcohol dependence F10.21
[2023-11-29] MEDS: POTASSIUM CHLORIDE PWD 20 MEQ PACK PO ONE (10:21)
[2023-11-29] MEDS: HYDROmorphone INJ 0.5 MG/0.5 ML SYR IV PRN ×2 (11:53→16:47)
--- NOTE | 2023-11-30 09:34 | Hospitalist Progress Note ---
Date of Service November 30, 2023 Assessment & Plan (1) Sepsis: (2) Metabolic encephalopathy: (3) NSTEMI (non-ST elevated myocardial infarction): (4) Carotid stenosis: (5) Paroxysmal A-fib: (6) H/O: GI bleed: (7) Hypertension: (8) H/O alcohol dependence: Plan 88-year-old male with past medical history of left carotid artery stenosis, history of GI bleed secondary to ulcer, history of alcohol use disorder, hypertension who was found on the floor in his house by his caregiver and was brought to the hospital. Patient was found to be obtunded and septic and also found to be in A-fib with RVR #Sepsis present on admission, source likely pneumonia, likely aspiration pneumonia #Suspected aspiration pneumonia #Acute metabolic encephalopathy Lactic acid levels have improved MRSA screen is positive Blood cultures from 11/22/2023 show no growth at 48 hours Respiratory bio fire is negative Procalcitonin elevated CT of the chest from 11/23/2023 shows no evidence of PE and showed some patchy airspace consolidation throughout the right upper lobe typical for pneumonia/aspiration pneumonitis. Patient's completed 7 days of IV antibiotics: IV Zosyn plus IV vancomycin today CT of the head showed no evidence of hemorrhage, mass effect and showed mild to moderate stenosis of the left supraclinoid internal carotid arteries bilaterally with left greater than right and near complete thrombosis of the origin of the left internal carotid artery. MRI of the brain from 11/23/2023 showed no acute intracranial abnormality. It did show some small chronic left posterior parieto-occipital infarcts. Neurology saw the patient and at this point have not recommended any LP TSH is 2.576 B12 is 1004 Continue Seroquel 50 mg p.o. nightly #Atrial fibrillation #NSTEMI #Essential hypertension #Carotid stenosis #Small chronic left posterior parieto-occipital infarcts #Acute on chronic diastolic congestive heart failure with preserved ejection fraction of 65% CT of the neck shows mild to moderate stenosis of the supraclinoid internal carotid arteries bilaterally, left greater than right. There is a short segment of near complete thrombosis of the origin of the left internal carotid artery. MRI of the brain from 11/23/2023 showed no acute intracranial abnormality. It did show some small chronic left posterior parieto-occipital infarcts. Echo from 11/23/2023 shows moderate concentric left ventricular hypertrophy, left ventricular is hyperdynamic, EF is 65 to 70% with grade 1 diastolic dysfunction. Mild tricuspid regurgitation, right ventricular systolic pressure elevated at 40 to 50 mmHg TSH is 2.576 Troponin peaked at 1288 A1c is 5.3 Triglycerides are 77 LDL is 65 HDL is 43 Total cholesterol is 123 Cardiology saw the patient and recommended heparin infusion for now along with aspirin Patient is on a beta-madina carvedilol: 6.25 mg twice daily. Continue amlodipine 5 mg p.o. daily Patient received intermittent doses of IV Lasix I/O monitoring Daily weights Conservative management for NSTEMI per cardiology for now Vascular surgery was consulted per cardiology recommendations: Vascular surgery saw the patient and vascular surgery does not recommend vascular surgical intervention at this point due to no CVA symptoms. Neurology and cardiology both feel that patient will need to be on anticoagulation but given history of GI bleed will need clearance from GI for long-term anticoagulation versus antiplatelet therapy with Plavix GI was initially consulted and have recommended patient can be started on anticoagulation along with PPI and to avoid NSAIDs Neurology believes the patient would benefit from Plavix given carotid disease He was on anticoagulation with apixaban 2.5 mg twice daily per cardiology recommendations Patient's hemoglobin dropped to 6.8 with no obvious source of GI bleed. Patient's son declined endoscopy and any blood transfusion and wants his father transition to comfort measures only with hospice care #Bilateral lower extremity chronic skin changes with suspected cellulitis Erythema has improved after IV antibiotics Bilateral lower extremity Dopplers were negative for DVT D-dimer was elevated at 2320 CTA chest did not show any evidence of PE #History of GI bleed secondary to gastric ulcer in 2021 #Suspected GI bleed #Anemia, likely acute blood loss from suspected GI bleed versus hematoma Patient was found to have a GI bleed in the setting of NSAID use in 2021. He had an EGD which showed gastric ulcer with visible vessel treated with APC and clipped Currently no evidence of bleeding H&H has dropped with hemoglobin less than 7 Avoid all NSAIDs Continue Protonix 40 mg daily Suspect bleeding either from GI source or from hematoma Patient has been switched to comfort measures only and son does not want any further investigations including endoscopy or blood transfusions #History of alcohol use disorder #Elevated liver enzymes/transaminitis CT abdomen reviewed and liver is normal in size, contour and attenuation. There is no intrahepatic biliary ductal dilatation. The hepatic veins and portal veins are patent. Likely related to sepsis Hepatitis screen is negative #Hypokalemia #Hypomagnesemia Patient is currently comfort measures only and son does not want any further blood tests Increase Dilaudid IV to 1 mg every 2 hours as needed for pain. Continue Ativan 1 mg IV every 6 hours as needed for anxiety CODE STATUS: DNR/DNI Comfort Measures Only, awaiting Hospice Care plan discussed with nursing staff. patient's son Jamie ([phone]) updated on the phone Admission and Anticipated Discharge Date Admission Date: November 22, 2023 Subjective Patient seen and examined Complaining of pain in his left thigh and buttock area which appears to be from the hematoma He is still confused Physical Exam Physical Exam: General: No acute distress, pale appearance Psych: Awake and oriented to self. He is aware of being in the hospital HEENT: Anicteric sclera CVS: Irregular rate and rhythm, systolic murmur audible Lungs: Bilateral air entry with diminished breath sounds at bases, no wheezing noted Abdomen: Soft, nontender, no rebound, no guarding Ext: Bilateral lower extremity improving edema with chronic skin changes noted with improving erythema of bilateral lower extremity, patient has significant ecchymosis on his left thigh and buttock area Results & Data Results & Data Vital Signs (Past 12 Hours) Vital Signs Temp Pulse Resp BP Pulse Ox O2 Del Method 11/30/23 07:45 36.3 C L 78 18 156/61 H 94 Room Air PG Care Time/CCT Total # of Minutes Spent Total Time Spent with Patient: Total time spent is greater than 50% in coordination of care (as documented) at patient's floor/unit and/or counseling patient: Coding Level of Care Code 71280 SUB INP/OBS CARE 03/20MIN Diagnoses Sepsis A41.9 Metabolic encephalopathy G93.41 NSTEMI (non-ST elevated myocardial infarction) I21.4 Carotid stenosis I65.29 Paroxysmal A-fib I48.0 H/O: GI bleed Z87.19 Hypertension I10 H/O alcohol dependence F10.21
--- NOTE | 2023-11-30 10:13 | Communication Note ---
Date of Service: November 30, 2023 Spoke with hospitalist and read chart notes. Family has opted for comfort care and no procedures or transfusions ordered. IP GI Service will sign off.
[2023-11-30] MEDS: HYDROmorphone INJ 1 MG/ML SYRINGE IV STA (10:18)
[2023-11-30] MEDS: HYDROmorphone INJ 1 MG/ML SYRINGE IV PRN (15:34)
[2023-11-30] MEDS: LORazepam 2 MG/1 ML VIAL IV PRN (16:51)
--- NOTE | 2023-12-01 10:48 | Hospitalist Progress Note ---
Date of Service December 01, 2023 Assessment & Plan (1) Sepsis: (2) Metabolic encephalopathy: (3) NSTEMI (non-ST elevated myocardial infarction): (4) Carotid stenosis: (5) Paroxysmal A-fib: (6) H/O: GI bleed: (7) Hypertension: (8) H/O alcohol dependence: Plan 88-year-old male with past medical history of left carotid artery stenosis, history of GI bleed secondary to ulcer, history of alcohol use disorder, hypertension who was found on the floor in his house by his caregiver and was brought to the hospital. Patient was found to be obtunded and septic and also found to be in A-fib with RVR #Sepsis present on admission, source likely pneumonia, likely aspiration pneumonia #Suspected aspiration pneumonia #Acute metabolic encephalopathy Lactic acid levels have improved MRSA screen is positive Blood cultures from 11/22/2023 show no growth at 48 hours Respiratory bio fire is negative Procalcitonin elevated CT of the chest from 11/23/2023 shows no evidence of PE and showed some patchy airspace consolidation throughout the right upper lobe typical for pneumonia/aspiration pneumonitis. Patient's completed 7 days of IV antibiotics: IV Zosyn plus IV vancomycin today CT of the head showed no evidence of hemorrhage, mass effect and showed mild to moderate stenosis of the left supraclinoid internal carotid arteries bilaterally with left greater than right and near complete thrombosis of the origin of the left internal carotid artery. MRI of the brain from 11/23/2023 showed no acute intracranial abnormality. It did show some small chronic left posterior parieto-occipital infarcts. Neurology saw the patient and at this point have not recommended any LP TSH is 2.576 B12 is 1004 Continue Seroquel 50 mg p.o. nightly #Atrial fibrillation #NSTEMI #Essential hypertension #Carotid stenosis #Small chronic left posterior parieto-occipital infarcts #Acute on chronic diastolic congestive heart failure with preserved ejection fraction of 65% CT of the neck shows mild to moderate stenosis of the supraclinoid internal carotid arteries bilaterally, left greater than right. There is a short segment of near complete thrombosis of the origin of the left internal carotid artery. MRI of the brain from 11/23/2023 showed no acute intracranial abnormality. It did show some small chronic left posterior parieto-occipital infarcts. Echo from 11/23/2023 shows moderate concentric left ventricular hypertrophy, left ventricular is hyperdynamic, EF is 65 to 70% with grade 1 diastolic dysfunction. Mild tricuspid regurgitation, right ventricular systolic pressure elevated at 40 to 50 mmHg TSH is 2.576 Troponin peaked at 1288 A1c is 5.3 Triglycerides are 77 LDL is 65 HDL is 43 Total cholesterol is 123 Cardiology saw the patient and recommended heparin infusion for now along with aspirin Patient is on a beta-madina carvedilol: 6.25 mg twice daily. Continue amlodipine 5 mg p.o. daily Patient received intermittent doses of IV Lasix I/O monitoring Daily weights Conservative management for NSTEMI per cardiology for now Vascular surgery was consulted per cardiology recommendations: Vascular surgery saw the patient and vascular surgery does not recommend vascular surgical intervention at this point due to no CVA symptoms. Neurology and cardiology both feel that patient will need to be on anticoagulation but given history of GI bleed will need clearance from GI for long-term anticoagulation versus antiplatelet therapy with Plavix GI was initially consulted and have recommended patient can be started on anticoagulation along with PPI and to avoid NSAIDs Neurology believes the patient would benefit from Plavix given carotid disease He was on anticoagulation with apixaban 2.5 mg twice daily per cardiology recommendations Patient's hemoglobin dropped to 6.8 with no obvious source of GI bleed. Patient's son declined endoscopy and any blood transfusion and wants his father transition to comfort measures only with hospice care #Bilateral lower extremity chronic skin changes with suspected cellulitis Erythema has improved after IV antibiotics Bilateral lower extremity Dopplers were negative for DVT D-dimer was elevated at 2320 CTA chest did not show any evidence of PE #History of GI bleed secondary to gastric ulcer in 2021 #Suspected GI bleed #Anemia, likely acute blood loss from suspected GI bleed versus hematoma Patient was found to have a GI bleed in the setting of NSAID use in 2021. He had an EGD which showed gastric ulcer with visible vessel treated with APC and clipped Currently no evidence of bleeding H&H has dropped with hemoglobin less than 7 Avoid all NSAIDs Continue Protonix 40 mg daily Suspect bleeding either from GI source or from hematoma Patient has been switched to comfort measures only and son does not want any further investigations including endoscopy or blood transfusions #History of alcohol use disorder #Elevated liver enzymes/transaminitis CT abdomen reviewed and liver is normal in size, contour and attenuation. There is no intrahepatic biliary ductal dilatation. The hepatic veins and portal veins are patent. Likely related to sepsis Hepatitis screen is negative #Hypokalemia #Hypomagnesemia Patient is currently comfort measures only and son does not want any further blood tests Increase Dilaudid IV to 1 mg every 2 hours as needed for pain. Continue Ativan 1 mg IV every 6 hours as needed for anxiety CODE STATUS: DNR/DNI Comfort Measures Only, awaiting Hospice: He has been referred to [facility] hospice for GIP Care plan discussed with nursing staff. patient's son Jamie ([phone]) updated on the phone yesterday: He was going to fax sign paperwork to [facility] hospice this morning, awaiting acceptance to [facility] hospice for GIP care Admission and Anticipated Discharge Date Admission Date: November 22, 2023 Subjective Patient seen and examined Patient is confused, is talking about going to college Unable to get a full review of systems He appears comfortable He is required multiple doses of IV Dilaudid in the past 24 hours Physical Exam Physical Exam: General: No acute distress, pale appearance Psych: Awake and disorientated. He thinks he is in college HEENT: Anicteric sclera CVS: Irregular rate and rhythm, systolic murmur audible Lungs: Bilateral air entry with diminished breath sounds at bases, no wheezing noted Abdomen: Soft, nontender, no rebound, no guarding Ext: Bilateral lower extremity improving edema with chronic skin changes noted with improving erythema of bilateral lower extremity, patient has significant ecchymosis on his left thigh and buttock area Results & Data Results & Data Vital Signs (Past 12 Hours) Vital Signs Temp Pulse Resp BP Pulse Ox O2 Del Method 12/01/23 07:00 36.5 C 77 16 148/78 H 97 Room Air PG Care Time/CCT Total # of Minutes Spent Total Time Spent with Patient: Total time spent is greater than 50% in coordination of care (as documented) at patient's floor/unit and/or counseling patient: Coding Level of Care Code 30186 SUB INP/OBS CARE 03/20MIN Diagnoses Sepsis A41.9 Metabolic encephalopathy G93.41 NSTEMI (non-ST elevated myocardial infarction) I21.4 Carotid stenosis I65.29 Paroxysmal A-fib I48.0 H/O: GI bleed Z87.19 Hypertension I10 H/O alcohol dependence F10.21
[2023-12-01] MEDS: LORazepam 2 MG/1 ML VIAL IV PRN (19:36)
--- NOTE | 2023-12-02 10:46 | Hospitalist Progress Note ---
Date of Service December 02, 2023 Assessment & Plan (1) Sepsis: (2) Metabolic encephalopathy: (3) NSTEMI (non-ST elevated myocardial infarction): (4) Carotid stenosis: (5) Paroxysmal A-fib: (6) H/O: GI bleed: (7) Hypertension: (8) H/O alcohol dependence: Plan 88-year-old male with past medical history of left carotid artery stenosis, history of GI bleed secondary to ulcer, history of alcohol use disorder, hypertension who was found on the floor in his house by his caregiver and was brought to the hospital. Patient was found to be obtunded and septic and also found to be in A-fib with RVR #Sepsis present on admission, source likely pneumonia, likely aspiration pneumonia #Suspected aspiration pneumonia #Acute metabolic encephalopathy Lactic acid levels have improved MRSA screen is positive Blood cultures from 11/22/2023 show no growth at 48 hours Respiratory bio fire is negative Procalcitonin elevated CT of the chest from 11/23/2023 shows no evidence of PE and showed some patchy airspace consolidation throughout the right upper lobe typical for pneumonia/aspiration pneumonitis. Patient's completed 7 days of IV antibiotics: IV Zosyn plus IV vancomycin today CT of the head showed no evidence of hemorrhage, mass effect and showed mild to moderate stenosis of the left supraclinoid internal carotid arteries bilaterally with left greater than right and near complete thrombosis of the origin of the left internal carotid artery. MRI of the brain from 11/23/2023 showed no acute intracranial abnormality. It did show some small chronic left posterior parieto-occipital infarcts. Neurology saw the patient and at this point have not recommended any LP TSH is 2.576 B12 is 1004 Continue Seroquel 50 mg p.o. nightly #Atrial fibrillation #NSTEMI #Essential hypertension #Carotid stenosis #Small chronic left posterior parieto-occipital infarcts #Acute on chronic diastolic congestive heart failure with preserved ejection fraction of 65% CT of the neck shows mild to moderate stenosis of the supraclinoid internal carotid arteries bilaterally, left greater than right. There is a short segment of near complete thrombosis of the origin of the left internal carotid artery. MRI of the brain from 11/23/2023 showed no acute intracranial abnormality. It did show some small chronic left posterior parieto-occipital infarcts. Echo from 11/23/2023 shows moderate concentric left ventricular hypertrophy, left ventricular is hyperdynamic, EF is 65 to 70% with grade 1 diastolic dysfunction. Mild tricuspid regurgitation, right ventricular systolic pressure elevated at 40 to 50 mmHg TSH is 2.576 Troponin peaked at 1288 A1c is 5.3 Triglycerides are 77 LDL is 65 HDL is 43 Total cholesterol is 123 Cardiology saw the patient and recommended heparin infusion for now along with aspirin Patient is on a beta-madina carvedilol: 6.25 mg twice daily. Continue amlodipine 5 mg p.o. daily Patient received intermittent doses of IV Lasix I/O monitoring Daily weights Conservative management for NSTEMI per cardiology for now Vascular surgery was consulted per cardiology recommendations: Vascular surgery saw the patient and vascular surgery does not recommend vascular surgical intervention at this point due to no CVA symptoms. Neurology and cardiology both feel that patient will need to be on anticoagulation but given history of GI bleed will need clearance from GI for long-term anticoagulation versus antiplatelet therapy with Plavix GI was initially consulted and have recommended patient can be started on anticoagulation along with PPI and to avoid NSAIDs Neurology believes the patient would benefit from Plavix given carotid disease He was on anticoagulation with apixaban 2.5 mg twice daily per cardiology recommendations Patient's hemoglobin dropped to 6.8 with no obvious source of GI bleed. Patient's son initially declined endoscopy and any blood transfusion and wanted his father transition to comfort measures only with hospice care [facility] family hospice saw the patient and declined him for GIP. #Bilateral lower extremity chronic skin changes with suspected cellulitis Erythema has improved after IV antibiotics Bilateral lower extremity Dopplers were negative for DVT D-dimer was elevated at 2320 CTA chest did not show any evidence of PE #History of GI bleed secondary to gastric ulcer in 2021 #Suspected GI bleed #Anemia, likely acute blood loss from suspected GI bleed versus hematoma Patient was found to have a GI bleed in the setting of NSAID use in 2021. He had an EGD which showed gastric ulcer with visible vessel treated with APC and clipped Currently no evidence of bleeding H&H has dropped with hemoglobin less than 7 Avoid all NSAIDs Continue Protonix 40 mg daily Suspect bleeding either from GI source or from hematoma Patient has been switched to comfort measures only and son does not want any further investigations including endoscopy or blood transfusions #History of alcohol use disorder #Elevated liver enzymes/transaminitis CT abdomen reviewed and liver is normal in size, contour and attenuation. There is no intrahepatic biliary ductal dilatation. The hepatic veins and portal veins are patent. Likely related to sepsis Hepatitis screen is negative Family meeting on the phone with patient's son Jamie, patient's daughter Licha and Licha's Conor. 30 minutes spent on this phone family meeting. Patient has been denied for GIP care by [facility] family hospice. After long discussion on goals of care, family has decided they would like to at least have his labs checked to see if his hemoglobin is still less than 7 and if hemoglobin is still less than 7 they are agreeable to blood transfusion at this point. They would also like his renal function checked. Family is okay with stopping comfort measures only and checking vital signs and blood tests but do not want to escalate care to involve any procedures and still want him to be DNR/DNI. They understand that options for discharge will be home hospice with 24-hour private pay from family versus discharge to SNF. They are also going to speak to the case resource manager next about discharge options. Will check CBC, BMP per family request today and will update family again tomorrow per their request. CODE STATUS: DNR/DNI Care plan discussed with nursing staff. patient's son Jamie ([phone]) updated Admission and Anticipated Discharge Date Admission Date: November 22, 2023 Subjective Patient seen and examined Appears comfortable Patient is aware he is in [place] but does not know he is in a hospital He is confused, pleasant and polite He denies any chest pain or shortness of breath Physical Exam Physical Exam: General: No acute distress, pale appearance Psych: Awake and disorientated. He thinks he is in college HEENT: Anicteric sclera CVS: Irregular rate and rhythm, systolic murmur audible Lungs: Bilateral air entry with diminished breath sounds at bases, no wheezing noted Abdomen: Soft, nontender, no rebound, no guarding Ext: Bilateral lower extremity improving edema with chronic skin changes noted with improving erythema of bilateral lower extremity, patient has significant ecchymosis on his left thigh and buttock area Results & Data Results & Data Vital Signs (Past 12 Hours) Vital Signs Temp Pulse Resp BP BP Pulse Ox O2 Del Method 12/01/23 23:50 36.9 C 104 H 18 132/68 132/68 96 Room Air 12/01/23 23:00 O2 Del Method 12/01/23 23:50 12/01/23 23:00 Room Air PG Care Time/CCT Total # of Minutes Spent Total Time Spent with Patient: Total time spent is greater than 50% in coordination of care (as documented) at patient's floor/unit and/or counseling patient: Coding Level of Care Code 97510 SUB INP/OBS CARE 2/35MIN Diagnoses Sepsis A41.9 Metabolic encephalopathy G93.41 NSTEMI (non-ST elevated myocardial infarction) I21.4 Carotid stenosis I65.29 Paroxysmal A-fib I48.0 H/O: GI bleed Z87.19 Hypertension I10 H/O alcohol dependence F10.21
[2023-12-02] MEDS ORDERED: HYDROmorphone HCL 2 MG TAB PO PRN (11:17)
[2023-12-02 11:51] LABS: Hematocrit (blood only) 23.9 % (42.0-52.0); Hemoglobin 7.9 g/dl (14.0-18.0); Mean Corpuscular Hemoglobin 32.5 pg (25.0-34.0); Mean Corpuscular Hgb Conc 33.1 g/dL (32.0-36.0); Mean Corpuscular Volume 98.4 fL (80.0-100.0); Mean Platelet Volume 9.9 fL (9.4-12.4); Nucleated RBC # (auto) 0.17 K/uL (0.00-0.12); Nucleated RBC % (auto) 1.4 %; Platelet Count 370 K/uL (130-400); RDW Coefficient of Variation 16.7 % (11.5-14.5); RDW Standard Deviation 56.5 fL (36.4-46.3); Red Blood Count 2.43 M/uL (4.70-6.10); White Blood Count 12.23 K/ul (4.8-10.8)
[2023-12-02 12:06] LABS: BUN Creatinine Ratio 27.4 (10-20); Calcium 8.2 mg/dl (8.6-10.3); Creatinine Clr Calc Pharmacy 52.2 ml/min; Magnesium 1.9 mg/dl (1.7-2.4); Potassium 3.7 mmol/L (3.5-5.1)
[2023-12-02 12:31] LABS: Basophils % (auto) 0.8 %; Eosinophils # (auto) 0.49 K/uL (0.00-0.50); Immature Granulocytes % (auto) 6.5 %; Lymphocytes # (auto) 1.18 K/uL (1.20-3.40); Lymphocytes % (auto) 9.6 %; Neutrophils # (auto) 8.56 K/uL (1.40-6.50); Neutrophils % (auto) 70.1 %; Polychromasia 1+
[2023-12-02 18:29] LABS: Amorphous Sediment Urine Present (None Prsent); Appearance Urine Turbid (Clear); Bacteria Urine Automated None Seen (None Seen); Bilirubin Urine 1+ (Negative); Blood Urine 3+ (Negative); Cast Urine Automated 0-2 /lpf (0-2); Color Urine Orange; Glucose Urine UA Negative (Negative); Ketones Urine Negative (Negative); Leukocyte Esterase Urine 1+ (Negative); Nitrite Urine Negative (Negative); Protein Urine 1+ (Negative); RBC Urine Automated >20 /hpf (0-2); Specific Gravity Urine 1.022 (1.000-1.030); Urobilinogen Urine Negative (Negative); WBC Urine Automated 0-5 /hpf (0-5); pH Urine 5.5 (4.5-7.5)
[2023-12-03] MEDS: LORazepam 2 MG/1 ML VIAL IV PRN (02:48)
--- NOTE | 2023-12-03 10:53 | Hospitalist Progress Note ---
Date of Service December 03, 2023 Assessment & Plan (1) Sepsis: (2) Metabolic encephalopathy: (3) NSTEMI (non-ST elevated myocardial infarction): (4) Carotid stenosis: (5) Paroxysmal A-fib: (6) H/O: GI bleed: (7) Hypertension: (8) H/O alcohol dependence: Plan 88-year-old male with past medical history of left carotid artery stenosis, history of GI bleed secondary to ulcer, history of alcohol use disorder, hypertension who was found on the floor in his house by his caregiver and was brought to the hospital. Patient was found to be obtunded and septic and also found to be in A-fib with RVR #Sepsis present on admission, source likely pneumonia, likely aspiration pneumonia #Suspected aspiration pneumonia #Acute metabolic encephalopathy Lactic acid levels have improved MRSA screen is positive Blood cultures from 11/22/2023 show no growth at 48 hours Respiratory bio fire is negative Procalcitonin elevated CT of the chest from 11/23/2023 shows no evidence of PE and showed some patchy airspace consolidation throughout the right upper lobe typical for pneumonia/aspiration pneumonitis. Patient's completed 7 days of IV antibiotics: IV Zosyn plus IV vancomycin today CT of the head showed no evidence of hemorrhage, mass effect and showed mild to moderate stenosis of the left supraclinoid internal carotid arteries bilaterally with left greater than right and near complete thrombosis of the origin of the left internal carotid artery. MRI of the brain from 11/23/2023 showed no acute intracranial abnormality. It did show some small chronic left posterior parieto-occipital infarcts. Neurology saw the patient and at this point have not recommended any LP TSH is 2.576 B12 is 1004 Continue Seroquel 50 mg p.o. nightly #Atrial fibrillation #NSTEMI #Essential hypertension #Carotid stenosis #Small chronic left posterior parieto-occipital infarcts #Acute on chronic diastolic congestive heart failure with preserved ejection fraction of 65% CT of the neck shows mild to moderate stenosis of the supraclinoid internal carotid arteries bilaterally, left greater than right. There is a short segment of near complete thrombosis of the origin of the left internal carotid artery. MRI of the brain from 11/23/2023 showed no acute intracranial abnormality. It did show some small chronic left posterior parieto-occipital infarcts. Echo from 11/23/2023 shows moderate concentric left ventricular hypertrophy, left ventricular is hyperdynamic, EF is 65 to 70% with grade 1 diastolic dysfunction. Mild tricuspid regurgitation, right ventricular systolic pressure elevated at 40 to 50 mmHg TSH is 2.576 Troponin peaked at 1288 A1c is 5.3 Triglycerides are 77 LDL is 65 HDL is 43 Total cholesterol is 123 Cardiology saw the patient and recommended heparin infusion for now along with aspirin Patient is on a beta-madina carvedilol: 6.25 mg twice daily. Continue amlodipine 5 mg p.o. daily Patient received intermittent doses of IV Lasix I/O monitoring Daily weights Conservative management for NSTEMI per cardiology for now Vascular surgery was consulted per cardiology recommendations: Vascular surgery saw the patient and vascular surgery does not recommend vascular surgical intervention at this point due to no CVA symptoms. Neurology and cardiology both feel that patient will need to be on anticoagulation but given history of GI bleed will need clearance from GI for long-term anticoagulation versus antiplatelet therapy with Plavix GI was initially consulted and have recommended patient can be started on anticoagulation along with PPI and to avoid NSAIDs Neurology believes the patient would benefit from Plavix given carotid disease He was on anticoagulation with apixaban 2.5 mg twice daily per cardiology recommendations Patient's hemoglobin dropped to 6.8 with no obvious source of GI bleed. Patient's son initially declined endoscopy and any blood transfusion and wanted his father transition to comfort measures only with hospice care [facility] family hospice saw the patient and declined him for GIP. Patient did not qualify for GIP and son has not decided not to make him comfort measures but does not want to escalate care and would like him to transfuse if hemoglobin is less than 7. 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 Patient is not a good candidate for anticoagulation at this point given his bleeding issues Discussed with patient's son Jamie today and does not want any further blood draws. #Bilateral lower extremity chronic skin changes with suspected cellulitis Erythema has improved after IV antibiotics Bilateral lower extremity Dopplers were negative for DVT D-dimer was elevated at 2320 CTA chest did not show any evidence of PE #History of GI bleed secondary to gastric ulcer in 2021 #Suspected GI bleed #Anemia, likely acute blood loss from suspected GI bleed versus hematoma Patient was found to have a GI bleed in the setting of NSAID use in 2021. He had an EGD which showed gastric ulcer with visible vessel treated with APC and clipped Currently no evidence of bleeding H&H has dropped with hemoglobin less than 7 Avoid all NSAIDs Continue Protonix 40 mg daily Suspect bleeding either from GI source or from hematoma Hemoglobin today is 7.9 #History of alcohol use disorder #Elevated liver enzymes/transaminitis CT abdomen reviewed and liver is normal in size, contour and attenuation. There is no intrahepatic biliary ductal dilatation. The hepatic veins and portal veins are patent. Likely related to sepsis Hepatitis screen is negative I spoke with patient's son Jamie again on the phone today. Updated him on the lab tests and urinary retention yesterday. 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 Jamie would like him to work with PT/OT and is agreeable to no further blood draws. Plan is for patient to go to SNF for skilled care Patient is medically stable for discharge to SNF when bed available CODE STATUS: DNR/DNI Care plan discussed with nursing staff. patient's son Jamie ([phone]) updated Admission and Anticipated Discharge Date Admission Date: November 22, 2023 Subjective Patient seen and examined Labs reviewed Patient tells me he is in a hospital and he normally lives in [place] He does not recall today's date or the current president. He denies any pain Overnight patient needed straight cath x 1 for urinary retention. No urinary issues this morning Physical Exam Physical Exam: General: No acute distress, pale appearance Psych: Awake and disorientated. He thinks he is in college HEENT: Anicteric sclera CVS: Irregular rate and rhythm, systolic murmur audible Lungs: Bilateral air entry with diminished breath sounds at bases, no wheezing noted Abdomen: Soft, nontender, no rebound, no guarding Ext: Bilateral lower extremity improving edema with chronic skin changes noted with improving erythema of bilateral lower extremity, patient has significant ecchymosis on his left thigh and buttock area Results & Data Results & Data Vital Signs (Past 12 Hours) Vital Signs Temp Pulse Resp BP Pulse Ox O2 Del Method 12/03/23 07:25 Room Air 12/03/23 07:24 37.0 C 68 18 159/67 H 91 Room Air Laboratory Results Laboratory Results - last 24 hr 12/02/23 12/02/23 11:38 18:00 WBC 12.23 H RBC 2.43 L Hgb 7.9 L Hct 23.9 L MCV 98.4 MCH 32.5 MCHC 33.1 RDW Std Deviation 56.5 H RDW Coeff of Randall 16.7 H Plt Count 370 MPV 9.9 Immature Gran % (Auto) 6.5 Neut % (Auto) 70.1 Lymph % (Auto) 9.6 Petroleum % (Auto) 9.0 Eos % (Auto) 4.0 Baso % (Auto) 0.8 Neut # (Auto) 8.56 H Lymph # (Auto) 1.18 L Petroleum # (Auto) 1.10 H Eos # (Auto) 0.49 Baso # (Auto) 0.10 Immature Gran # (Auto) 0.80 H Absolute Nucleated RBC 0.17 H Nucleated RBC % (auto) 1.4 Polychromasia 1+ Sodium 137 Potassium 3.7 Chloride 104 Carbon Dioxide 27 Anion Gap 6 BUN 29 H Creatinine 1.06 Est Cr Clr Drug Dosing 52.2 eGFR 67.50 BUN/Creatinine Ratio 27.4 H Glucose 128 H Calcium 8.2 L Magnesium 1.9 Urine Color Bonesteel Urine Appearance Turbid A Urine pH 5.5 Ur Specific Butler 1.022 Urine Protein 1+ H Urine Glucose (UA) Negative Urine Ketones Negative Urine Blood 3+ H Urine Nitrite Negative Urine Bilirubin 1+ H Urine Urobilinogen Negative Ur Leukocyte Esterase 1+ H Urine WBC (Auto) 0-5 Urine RBC (Auto) >20 H U Hyaline Cast (Auto) 0-2 U Epithel Cells (Auto) 3-5 H Urine Bacteria (Auto) None Seen Amorphous Sediment Present A Blood Type O Positive Antibody Screen NEGATIVE PG Care Time/CCT Total # of Minutes Spent Total Time Spent with Patient: Total time spent is greater than 50% in coordination of care (as documented) at patient's floor/unit and/or counseling patient: Coding Level of Care Code 42106 SUB INP/OBS CARE 2/35MIN Diagnoses Sepsis A41.9 Metabolic encephalopathy G93.41 NSTEMI (non-ST elevated myocardial infarction) I21.4 Carotid stenosis I65.29 Paroxysmal A-fib I48.0 H/O: GI bleed Z87.19 Hypertension I10 H/O alcohol dependence F10.21
[2023-12-03] MEDS: HYDROmorphone INJ 1 MG/ML SYRINGE IV PRN (14:04)
[2023-12-03] MEDS: TAMSULOSIN HCL 0.4 MG CAP PO ONE (17:16)
[2023-12-03] MEDS: HYDROmorphone HCL 2 MG TAB PO PRN (20:40)
[2023-12-04] MEDS: TAMSULOSIN HCL 0.4 MG CAP PO SCH (07:39)
--- NOTE | 2023-12-04 07:57 | Hospitalist Progress Note ---
Date of Service December 04, 2023 Assessment & Plan (1) Sepsis: Plan: 88-year-old male with past medical history of left carotid artery stenosis, history of GI bleed secondary to ulcer, history of alcohol use disorder, hypertension who was found on the floor in his house by his caregiver and was brought to the hospital. Patient was found to be obtunded and septic and also found to be in A-fib with RVR Sepsis present on admission, source likely pneumonia, likely aspiration pneumonia Suspected aspiration pneumonia Acute metabolic encephalopathy- now resolved MRSA screen is positive Blood cultures from 11/22/2023 show no growth at 48 hours Respiratory bio fire is negative Procalcitonin elevated CT of the chest from 11/23/2023 shows no evidence of PE and showed some patchy airspace consolidation throughout the right upper lobe typical for pneumonia/aspiration pneumonitis. Patient's completed 7 days of IV antibiotics: IV Zosyn plus IV vancomycin 12/02 CT of the head showed no evidence of hemorrhage, mass effect and showed mild to moderate stenosis of the left supraclinoid internal carotid arteries bilaterally with left greater than right and near complete thrombosis of the origin of the left internal carotid artery. MRI of the brain from 11/23/2023 showed no acute intracranial abnormality. It did show some small chronic left posterior parieto-occipital infarcts. Neurology saw the patient and at this point have not recommended any LP TSH is 2.576 B12 is 1004 Continue Seroquel 50 mg p.o. nightly (2) NSTEMI (non-ST elevated myocardial infarction): Plan: Atrial fibrillation, Rate controlled with carvedilol: Eventually converted to sinus rhythm with first-degree block Carvedilol 12.5 mg twice daily Continue amlodipine 5 mg p.o. daily consideration of anticoagulation of afib by cardiology limited by GI bleed, hgb has dropped again no further eliquis Intermittent dosing of lasix by cardiology for HFpEF none recently Medical management for NSTEMI per cardiology EF shows preserved ejection fraction (3) Carotid stenosis: Plan: Vascular surgery has been consulted per cardiology recommendations: Vascular surgery saw the patient and vascular surgery does not recommend vascular surgical intervention at this point due to no CVA symptoms (4) H/O: GI bleed: Plan: Patient was found to have a GI bleed in the setting of NSAID use in 2021. 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 Jamie would like him to work with PT/OT and is agreeable to no further blood draws. Plan is for patient to go to SNF for skilled care Patient is medically stable for discharge to SNF when bed available CODE STATUS: DNR/DNI Care plan discussed with nursing staff. patient's son Jamie ([phone]) message left Admission and Anticipated Discharge Date Admission Date: November 22, 2023 Subjective he knows he is in a hospital and he normally lives in [place] He does not recall today's date or the current president. He denies any pain oakley placed Physical Exam Physical Exam: marked tort[place] cardiac is regular lungs are with some coarse breath sounds to upper lobes neurological is with global weakness Results & Data Results & Data Vital Signs (Past 12 Hours) Vital Signs Temp Pulse Resp BP BP Pulse Ox O2 Del Method 12/04/23 07:29 97.3 F L 47 L 18 140/50 L 93 Room Air 12/04/23 02:00 98.1 F 65 18 149/60 H 91 Room Air 12/03/23 21:30 Room Air PG Care Time/CCT Total # of Minutes Spent Total Time Spent with Patient: Total time spent is greater than 50% in coordination of care (as documented) at patient's floor/unit and/or counseling patient: Coding Level of Care Code 94156 SUB INP/OBS CARE 2/35MIN Diagnoses Sepsis A41.9 NSTEMI (non-ST elevated myocardial infarction) I21.4 Carotid stenosis I65.29 H/O: GI bleed Z87.19
[2023-12-04] MEDS: HYDROmorphone INJ 1 MG/ML SYRINGE IV PRN (16:04)
[2023-12-05] MEDS: GABAPENTIN 100 MG CAP PO ONE (11:29)
--- NOTE | 2023-12-05 15:46 | Hospitalist Progress Note ---
Date of Service December 05, 2023 Assessment & Plan (1) Sepsis: Plan: 88-year-old male with past medical history of left carotid artery stenosis, history of GI bleed secondary to ulcer, history of alcohol use disorder, hypertension who was found on the floor in his house by his caregiver and was brought to the hospital. Patient was found to be obtunded and septic and also found to be in A-fib with RVR Sepsis present on admission, source likely pneumonia, likely aspiration pneumonia Acute metabolic encephalopathy- now resolved MRSA screen is positive Blood cultures from 11/22/2023 show no growth at 48 hours Respiratory bio fire is negative Procalcitonin elevated CT of the chest from 11/23/2023 shows no evidence of PE and showed some patchy airspace consolidation throughout the right upper lobe typical for pneumonia/aspiration pneumonitis. Patient's completed 7 days of IV antibiotics: IV Zosyn plus IV vancomycin 12/02 CT of the head showed no evidence of hemorrhage, mass effect and showed mild to moderate stenosis of the left supraclinoid internal carotid arteries bilaterally with left greater than right and near complete thrombosis of the origin of the left internal carotid artery. MRI of the brain from 11/23/2023 showed no acute intracranial abnormality. It did show some small chronic left posterior parieto-occipital infarcts. Neurology saw the patient and at this point have not recommended any LP TSH is 2.576 B12 is 1004 Continue Seroquel 50 mg p.o. nightly (2) NSTEMI (non-ST elevated myocardial infarction): Plan: Atrial fibrillation, Rate controlled with carvedilol: Eventually converted to sinus rhythm with first-degree block Carvedilol 12.5 mg twice daily Continue amlodipine 5 mg p.o. daily consideration of anticoagulation of afib by cardiology limited by GI bleed, hgb has dropped again no further eliquis Intermittent dosing of lasix by cardiology for HFpEF none recently Medical management for NSTEMI per cardiology EF shows preserved ejection fraction (3) Carotid stenosis: Plan: Vascular surgery has been consulted per cardiology recommendations: Vascular surgery saw the patient and vascular surgery does not recommend vascular surgical intervention at this point due to no CVA symptoms (4) H/O: GI bleed: Plan: Patient was found to have a GI bleed in the setting of NSAID use in 2021. 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 Jamie would like him to work with PT/OT and is agreeable to no further blood draws. Plan is for patient to go to SNF for skilled care Patient is medically stable for discharge to SNF when bed available CODE STATUS: DNR/DNI Care plan discussed with nursing staff. patient's son Jamie ([phone]) message left Admission and Anticipated Discharge Date Admission Date: November 22, 2023 Subjective he knows he is in a hospital and he normally lives in [place] He does not recognize me but remembers me after a bit He now has significant pain in his legs again, consistent with neuropathic pain oakley placed Physical Exam Physical Exam: marked torticolis cardiac is regular lungs are with some coarse breath sounds to upper lobes neurological is with global weakness Results & Data Results & Data Vital Signs (Past 12 Hours) Vital Signs Temp Pulse Resp BP Pulse Ox O2 Del Method 12/05/23 07:09 98.4 F 70 18 167/67 H 95 Room Air 12/05/23 07:00 Room Air PG Care Time/CCT Total # of Minutes Spent Total Time Spent with Patient: Total time spent is greater than 50% in coordination of care (as documented) at patient's floor/unit and/or counseling patient: Coding Level of Care Code 98685 SUB INP/OBS CARE 2/35MIN Diagnoses Sepsis A41.9 NSTEMI (non-ST elevated myocardial infarction) I21.4 Carotid stenosis I65.29 H/O: GI bleed Z87.19
[2023-12-05] MEDS: LORazepam 2 MG/1 ML VIAL IV STA (15:56)
[2023-12-05] MEDS: GABAPENTIN 100 MG CAP PO SCH (20:06)
[2023-12-06 08:07] LABS: Hematocrit (blood only) 24.8 % (42.0-52.0); Hemoglobin 8.2 g/dl (14.0-18.0); Mean Corpuscular Hemoglobin 33.5 pg (25.0-34.0); Mean Corpuscular Hgb Conc 33.1 g/dL (32.0-36.0); Mean Corpuscular Volume 101.2 fL (80.0-100.0); Nucleated RBC # (auto) 0.09 K/uL (0.00-0.12); Nucleated RBC % (auto) 0.9 %; Platelet Count 347 K/uL (130-400); RDW Coefficient of Variation 19.1 % (11.5-14.5); Red Blood Count 2.45 M/uL (4.70-6.10); White Blood Count 9.84 K/ul (4.8-10.8)
[2023-12-06 08:24] LABS: BUN Creatinine Ratio 22.1 (10-20); Calcium 8.2 mg/dl (8.6-10.3); Creatinine Clr Calc Pharmacy 58.6 ml/min; Potassium 3.9 mmol/L (3.5-5.1)
--- NOTE | 2023-12-06 13:22 | Hospitalist Progress Note ---
Date of Service December 06, 2023 Assessment & Plan (1) Sepsis: Plan: 88-year-old male with past medical history of left carotid artery stenosis, history of GI bleed secondary to ulcer, history of alcohol use disorder, hypertension who was found on the floor in his house by his caregiver and was brought to the hospital. Patient was found to be obtunded and septic and also found to be in A-fib with RVR Sepsis present on admission, source likely pneumonia, likely aspiration pneumonia Acute metabolic encephalopathy- now resolved MRSA screen is positive Blood cultures from 11/22/2023 no growth Respiratory bio fire is negative Procalcitonin elevated CT of the chest from 11/23/2023 shows no evidence of PE and showed some patchy airspace consolidation throughout the right upper lobe typical for pneumonia/aspiration pneumonitis. Patient's completed 7 days of IV antibiotics: IV Zosyn plus IV vancomycin 12/02 CT of the head showed no evidence of hemorrhage, mass effect and showed mild to moderate stenosis of the left supraclinoid internal carotid arteries bilaterally with left greater than right and near complete thrombosis of the origin of the left internal carotid artery. MRI of the brain from 11/23/2023 showed no acute intracranial abnormality. It did show some small chronic left posterior parieto-occipital infarcts. Neurology saw the patient and at this point have not recommended any LP TSH is 2.576 B12 is 1004 Continue Seroquel 50 mg p.o. nightly (2) NSTEMI (non-ST elevated myocardial infarction): Plan: Atrial fibrillation, Rate controlled with carvedilol: Eventually converted to sinus rhythm with first-degree block Carvedilol 12.5 mg twice daily Continue amlodipine 5 mg p.o. daily consideration of anticoagulation of afib by cardiology limited by GI bleed, hgb has dropped again no further eliquis Intermittent dosing of lasix by cardiology for HFpEF none recently as remains euvolemic Medical management for NSTEMI per cardiology EF shows preserved ejection fraction (3) Carotid stenosis: Plan: Vascular surgery has been consulted per cardiology recommendations: Vascular surgery saw the patient and vascular surgery does not recommend vascular surgical intervention at this point due to no CVA symptoms (4) H/O: GI bleed: Plan: Patient was found to have a GI bleed in the setting of NSAID use in 2021. 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 Jamie would like him to work with PT/OT and is agreeable to no further blood draws. Plan is for patient to go to SNF for skilled care Patient is medically stable for discharge to SNF when bed available CODE STATUS: DNR/DNI Care plan discussed with nursing staff. patient's son Jamie ([phone]) message left Admission and Anticipated Discharge Date Admission Date: November 22, 2023 Subjective he knows he is in a hospital and he normally lives in [place] He does not recognize me but remembers me after a bit He now has significant pain in his legs again, consistent with neuropathic pain oakley placed Physical Exam Physical Exam: marked tortic[place] cardiac is regular lungs are with some coarse breath sounds to upper lobes neurological is with global weakness Results & Data Results & Data Vital Signs (Past 12 Hours) Vital Signs Temp Pulse Resp BP Pulse Ox O2 Del Method 12/06/23 08:30 Room Air 12/06/23 07:05 97.7 F 77 16 178/70 H 96 Room Air Laboratory Results review cbc review chemistry PG Care Time/CCT Total # of Minutes Spent Total Time Spent with Patient: Total time spent is greater than 50% in coordination of care (as documented) at patient's floor/unit and/or counseling patient: Coding Level of Care Code 74752 SUB INP/OBS CARE 2/35MIN Diagnoses Sepsis A41.9 NSTEMI (non-ST elevated myocardial infarction) I21.4 Carotid stenosis I65.29 H/O: GI bleed Z87.19
[2023-12-06] MEDS: HYDROmorphone INJ 0.5 MG/0.5 ML SYR IV PRN (13:29)
--- NOTE | 2023-12-07 11:00 | Hospitalist Progress Note ---
Date of Service December 07, 2023 Assessment & Plan (1) Sepsis: Plan: 88-year-old male with past medical history of left carotid artery stenosis, history of GI bleed secondary to ulcer, history of alcohol use disorder, hypertension who was found on the floor in his house by his caregiver and was brought to the hospital. Patient was found to be obtunded and septic and also found to be in A-fib with RVR Sepsis present on admission, source likely pneumonia, likely aspiration pneumonia Acute metabolic encephalopathy- now resolved CT chest: no evidence of PE and showed some patchy airspace consolidation throughout the right upper lobe typical for pneumonia/aspiration pneumonitis. - Received 7 day course of IV Zosyn + Vancomycin after positive MRSA screen . Blood cultures: no growth finalized. Respiratory bio fire is negative CT head: no evidence of hemorrhage, mass effect and showed mild to moderate stenosis of the left supraclinoid internal carotid arteries bilaterally with left greater than right and near complete thrombosis of the origin of the left internal carotid artery. MRI brain: no acute intracranial abnormality. It did show some small chronic left posterior parieto-occipital infarcts. Neurology consulted - recommended that he be on antiplatelet/anticoagulation therapy but not a candidate due to GI bleeds - no indication for EEG or LP Continue Seroquel 50 mg p.o. nightly (2) NSTEMI (non-ST elevated myocardial infarction): Plan: Atrial fibrillation initally presented with RVR, but then rate controlled with carvedilol: Eventually converted to sinus rhythm with first-degree block Continue Carvedilol 12.5 mg twice daily Continue amlodipine 5 mg p.o. daily consideration of anticoagulation of afib by cardiology limited by GI bleed, hgb has dropped again no further eliquis Intermittent dosing of lasix by cardiology for HFpEF none recently as remains euvolemic Medical management for NSTEMI per cardiology EF shows preserved ejection fraction (3) Carotid stenosis: Plan: CT head: no evidence of hemorrhage, mass effect and showed mild to moderate stenosis of the left supraclinoid internal carotid arteries bilaterally with left greater than right and near complete thrombosis of the origin of the left internal carotid artery. Vascular surgery consulted - no intervention recommended d/t no CVA sx, and intracranial stenosis (4) H/O: GI bleed: Plan: Patient was found to have a GI bleed in the setting of NSAID use in 2021. He had an EGD which showed gastric ulcer with visible vessel treated with APC and clipped Currently no evidence of bleeding GI consulted - had offered family a EGD, but they declined this Avoid all NSAIDs Continue Protonix 40 mg daily Suspect bleeding either from GI source or from hematoma Has not required transfusion - no further labs at this time (5) Penile swelling: Plan: Swelling note around head of penis with band of skin swelling, pt reports pain. Oakley was placed 12/03 for retention. 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 Jamie would like him to work with PT/OT and is agreeable to no further blood draws. Plan is for patient to go to SNF for skilled care Patient is medically stable for discharge to SNF when bed available CODE STATUS: DNR/DNI patient's son Jamie ([phone]) Admission and Anticipated Discharge Date Admission Date: November 22, 2023 Supervising Physician Co-Signing Physician Notes Attending Attestation - Chart reviewed, care plan d/w MIKO Ojeda. I agree w/ the calderón components of her documentation. Appreciate urology assistance with paraphimosis. Dispo - SNF. Esequiel Francisco MD Subjective patient seen sitting up in bed, reports " had a revelation this morning because the sun came out so suddenly" acute penile pain with swelling - i had the RN who placed the oakley look at this area and she states it did not look like this on 12/03 when she placed it. she did note that he was difficult straight cath/oakley placement. Oakley was placed for retention he tries to recount his recent pass with /son and gets emotional. no other concerns Review of Systems Review of Systems: All systems reviewed & are unremarkable except as noted in Subjective Physical Exam Physical Exam: General: NAD, VS as above, kyphotic posture Resp: normal respiratory effort, lungs clear to auscultation CV: RRR, no murmur, : oakley catheter in place, head of penis swolllen with surrounding band of skin/tissue swelling. Painful with any manipulation of oakley AxO x2 Results & Data Results & Data Vital Signs (Past 12 Hours) Vital Signs Temp Pulse Resp BP Pulse Ox O2 Del Method 12/07/23 07:04 98.2 F 72 18 165/64 H 92 Room Air PG Care Time/CCT Total # of Minutes Spent Total Time Spent with Patient: Total time spent is greater than 50% in coordination of care (as documented) at patient's floor/unit and/or counseling patient: Coding Level of Care Code 18704 SUB INP/OBS CARE 2/35MIN Diagnoses Sepsis A41.9 NSTEMI (non-ST elevated myocardial infarction) I21.4 Carotid stenosis I65.29 H/O: GI bleed Z87.19 Penile swelling N48.89
[2023-12-07] MEDS: FLUTICASONE PROPIONATE NA SPR 16 GM BTL SCH (11:59)
--- NOTE | 2023-12-07 16:12 | Urology Consultation ---
Date of Consultation December 07, 2023 Assessment & Plan (1) Paraphimosis: paraphimosis identified reduced at bedside pressure held on glans and distal foreskin to reduce edema before reducing the glans behind the tight band tolerated well discussed the importance of reducing the foreskin after cleaning, etc History of Present Illness Attending Physician: Esequiel Francisco MD History of Present Illness 88y/o male hospitalized after being found down relatively deconditioned at present urinary retention on arrival - oakley placed - foreskin was not reduced at that time and he has developed a paraphimosis called to evaluate and reduce Allergies Allergy/AdvReac Type Severity Reaction Status Date / Time No Known Allergies Allergy Verified 11/22/23 17:05 Home Medications Medication Instructions Recorded Confirmed Type No Known Home Medications 11/22/23 11/22/23 History Patient History Medical History Symptomatic anemia Influenza A Tinea unguium Cellulitis of leg, right Gastric ulcer GI bleed History of CVA (cerebrovascular accident) Elevated CK Hyperglycemia Insomnia Hypothyroidism Anxiety Alcohol abuse Hypertensive urgency Surgical History History of colonoscopy History of tonsillectomy History of cataract surgery Family History Mother , age 90 of uncertain causes. Anxiety Father , age 55 of pulmonary disease and alcoholism Lung disease Sister Kidney stone Denies family history of Ovarian cancer Prostate cancer Myocardial infarction Breast cancer Colorectal cancer Social History Smoking Status: Unknown if ever smoked Tobacco Type: Cigarettes Age Started Using Tobacco: 20; Age Quit Using Tobacco: 60; Cigarettes Per Day: social smoker, off and on; Second Hand Exposure: No; Do You Dip or Chew Tobacco: No; Hx Alcohol Use: No Hx Substance Use: No Preferred Language: Botswanan Communication Ability: Impaired Visual Impairment: No Limitations Hearing Ability: Normal Sales Support Advisor Required: No Beliefs That Will Affect Care: None marital status: Current Living Situation: Alone Current Living Situation Comment: Lives alone with spouse who is WCB current occupational status: retired 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 Other Information That Helps Us Care for You: No Feels Safe at Home: Declines to Answer Childhood Exposure to Second-Hand Smoke: Yes Diet: regular Dental Care, Regularly: No Physical Activity Frequency: Does not Exercise Seatbelt Use: always Sunscreen Use: No Assistive Devices: Glasses Review of Systems Review of Systems: All systems reviewed & are unremarkable except as noted in Subjective Physical Exam Physical Exam: sitter at bedside but patient is mentating relatively well abd soft oakley in place - clear urine edema of the distal foreskin and glans c/w paraphimosis Results & Data Vital Signs (Past 12 Hours) Vital Signs Temp Pulse Resp BP Pulse Ox O2 Del Method 12/07/23 15:15 37.0 C 70 18 141/62 H 93 Room Air 12/07/23 07:04 36.8 C 72 18 165/64 H 92 Room Air PG Care Time/CCT Total # of Minutes Spent Total Time Spent with Patient: Total time spent is greater than 50% in coordination of care (as documented) at patient's floor/unit and/or counseling patient: Coding Level of Care Code 77098 INT INP/OBS CARE 2/55MIN Diagnoses Paraphimosis N47.2
[2023-12-07] MEDS ORDERED: Nursing to Pharmacy Communication SCH (20:30)
--- NOTE | 2023-12-08 11:56 | Hospitalist Progress Note ---
Date of Service December 08, 2023 Assessment & Plan (1) Sepsis: Plan: 88-year-old male with past medical history of left carotid artery stenosis, history of GI bleed secondary to ulcer, history of alcohol use disorder, hypertension who was found on the floor in his house by his caregiver and was brought to the hospital on 11/22/2023. Patient was found to be obtunded and septic and also found to be in A-fib with RVR Sepsis present on admission, source likely pneumonia, likely aspiration pneumonia Acute metabolic encephalopathy- now resolved CT chest: no evidence of PE and showed some patchy airspace consolidation throughout the right upper lobe typical for pneumonia/aspiration pneumonitis. - Received 7 day course of IV Zosyn + Vancomycin after positive MRSA screen . Blood cultures: no growth finalized. Respiratory bio fire is negative CT head: no evidence of hemorrhage, mass effect and showed mild to moderate stenosis of the left supraclinoid internal carotid arteries bilaterally with left greater than right and near complete thrombosis of the origin of the left internal carotid artery. MRI brain: no acute intracranial abnormality. It did show some small chronic left posterior parieto-occipital infarcts. Neurology consulted - recommended that he be on antiplatelet/anticoagulation therapy but not a candidate due to GI bleeds - no indication for EEG or LP Continue Seroquel 50 mg p.o. nightly (2) NSTEMI (non-ST elevated myocardial infarction): Plan: Atrial fibrillation initally presented with RVR, but then rate controlled with carvedilol: Eventually converted to sinus rhythm with first-degree block Continue Carvedilol 12.5 mg twice daily Continue amlodipine 5 mg p.o. daily consideration of anticoagulation of afib by cardiology limited by GI bleed, hgb has dropped again no further eliquis Intermittent dosing of lasix by cardiology for HFpEF none recently as remains euvolemic Medical management for NSTEMI per cardiology EF shows preserved ejection fraction (3) Carotid stenosis: Plan: CT head: no evidence of hemorrhage, mass effect and showed mild to moderate stenosis of the left supraclinoid internal carotid arteries bilaterally with left greater than right and near complete thrombosis of the origin of the left internal carotid artery. Vascular surgery consulted - no intervention recommended d/t no CVA sx, and intracranial stenosis (4) H/O: GI bleed: Plan: Patient was found to have a GI bleed in the setting of NSAID use in 2021. He had an EGD which showed gastric ulcer with visible vessel treated with APC and clipped Currently no evidence of bleeding GI consulted - had offered family a EGD, but they declined this Avoid all NSAIDs Continue Protonix 40 mg daily Suspect bleeding either from GI source or from hematoma Has not required transfusion - no further labs at this time (5) Penile swelling: Plan: Swelling note around head of penis with band of skin swelling, pt reports pain. Hernandez was placed 12/03 for retention. concern for paraphimosis --> urology consult 12/06 reduced at bedside. 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 Jamie would like him to work with PT/OT and is agreeable to no further blood draws. Plan is for patient to go to SNF for skilled care Patient is medically stable for discharge to SNF when bed available CODE STATUS: DNR/DNI patient's son Jamie ([phone]) Admission and Anticipated Discharge Date Admission Date: November 22, 2023 Subjective Patient seen and examined this morning. Patient's caregiver at bedside. Patient denied any complaints at this time. Caregiver states prior to my arrival he was complaining of penile discomfort. Discussed with patient and caregiver rehab today. -Caregiver states that at home, patient refuses medications and does not eat well. She states here he has been eating more. Physical Exam 2 Constitutional: WD/WN, vitals as above Eyes: PERRL, conjunctivae normal, anicteric sclerae Respiratory: normal respiratory effort, lungs clear to auscultation Cardiovascular: RRR, no murmur, no edema Psychiatric: A+Ox3, euthymic affect Results & Data Results & Data Vital Signs (Past 12 Hours) Vital Signs Temp Pulse Resp BP Pulse Ox O2 Del Method 12/08/23 08:16 Room Air 12/08/23 07:54 37 C 72 18 147/73 H 95 Room Air Laboratory Results 12/06/23 07:52 12/06/23 07:52 PG Care Time/CCT Total # of Minutes Spent Total Time Spent with Patient: Total time spent is greater than 50% in coordination of care (as documented) at patient's floor/unit and/or counseling patient: Coding Level of Care Code 71610 SUB INP/OBS CARE 2/35MIN Diagnoses Sepsis A41.9 NSTEMI (non-ST elevated myocardial infarction) I21.4 Carotid stenosis I65.29 H/O: GI bleed Z87.19 Penile swelling N48.89
--- NOTE | 2023-12-09 15:48 | Hospitalist Progress Note ---
Date of Service December 09, 2023 Assessment & Plan (1) Sepsis: Plan: 88-year-old male with past medical history of left carotid artery stenosis, history of GI bleed secondary to ulcer, history of alcohol use disorder, hypertension who was found on the floor in his house by his caregiver and was brought to the hospital on 11/22/2023. Patient was found to be obtunded and septic and also found to be in A-fib with RVR Sepsis present on admission, source likely pneumonia, likely aspiration pneumonia Acute metabolic encephalopathy- now resolved CT chest: no evidence of PE and showed some patchy airspace consolidation throughout the right upper lobe typical for pneumonia/aspiration pneumonitis. - Received 7 day course of IV Zosyn + Vancomycin after positive MRSA screen . Blood cultures: no growth finalized. Respiratory bio fire is negative CT head: no evidence of hemorrhage, mass effect and showed mild to moderate stenosis of the left supraclinoid internal carotid arteries bilaterally with left greater than right and near complete thrombosis of the origin of the left internal carotid artery. MRI brain: no acute intracranial abnormality. It did show some small chronic left posterior parieto-occipital infarcts. Neurology consulted - recommended that he be on antiplatelet/anticoagulation therapy but not a candidate due to GI bleeds - no indication for EEG or LP Continue Seroquel 50 mg p.o. nightly (2) NSTEMI (non-ST elevated myocardial infarction): Plan: Atrial fibrillation initally presented with RVR, but then rate controlled with carvedilol: Eventually converted to sinus rhythm with first-degree block Continue Carvedilol 12.5 mg twice daily Continue amlodipine 5 mg p.o. daily consideration of anticoagulation of afib by cardiology limited by GI bleed, hgb has dropped again no further eliquis Intermittent dosing of lasix by cardiology for HFpEF none recently as remains euvolemic Medical management for NSTEMI per cardiology EF shows preserved ejection fraction (3) Carotid stenosis: Plan: CT head: no evidence of hemorrhage, mass effect and showed mild to moderate stenosis of the left supraclinoid internal carotid arteries bilaterally with left greater than right and near complete thrombosis of the origin of the left internal carotid artery. Vascular surgery consulted - no intervention recommended d/t no CVA sx, and intracranial stenosis (4) H/O: GI bleed: Plan: Patient was found to have a GI bleed in the setting of NSAID use in 2021. He had an EGD which showed gastric ulcer with visible vessel treated with APC and clipped Currently no evidence of bleeding GI consulted - had offered family a EGD, but they declined this Avoid all NSAIDs Continue Protonix 40 mg daily Suspect bleeding either from GI source or from hematoma Has not required transfusion - no further labs at this time (5) Penile swelling: Plan: Swelling note around head of penis with band of skin swelling, pt reports pain. Hernandez was placed 12/03 for retention. concern for paraphimosis --> urology consult 12/06 reduced at bedside. Plan Continue to monitor Left leg pain. Diluadid prn for pain q4h. If pain continues, will discuss with family whether they would like to pursue imaging or not. Added SCD's. 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 Jamie would like him to work with PT/OT and is agreeable to no further blood draws. Plan is for patient to go to SNF for skilled care Patient is medically stable for discharge to SNF when bed available CODE STATUS: DNR/DNI patient's son Jamie ([phone]) Admission and Anticipated Discharge Date Admission Date: November 22, 2023 Subjective Patient seen and examined this morning. Patient was complaining of pain "all over" this morning. He states he had pain above his left eyelid and then it moved to his right hand. States his most pain is in his left leg. Patient first stated pain was in left hip and then moved to state it was his left toe. States he was given his pain medication this morning and has not noticed much of difference. Physical Exam Constitutional: WD/WN, vitals as above appeared comfortable in no acute distress in bed Respiratory: breathing unlabored Cardiovascular: negative edema in b/l lower extremity. Skin: no rashes, warm and dry Psychiatric: A+Ox3, euthymic affect Results & Data Results & Data Vital Signs (Past 12 Hours) Vital Signs Temp Pulse Resp BP BP Pulse Ox O2 Del Method 12/09/23 14:19 36.9 C 66 18 144/60 H 94 Room Air 12/09/23 08:01 Room Air 12/09/23 07:16 36.8 C 71 18 178/63 H 96 Room Air PG Care Time/CCT Total # of Minutes Spent Total Time Spent with Patient: Total time spent is greater than 50% in coordination of care (as documented) at patient's floor/unit and/or counseling patient: Coding Level of Care Code 53080 SUB INP/OBS CARE 2/35MIN Diagnoses Sepsis A41.9 NSTEMI (non-ST elevated myocardial infarction) I21.4 Carotid stenosis I65.29 H/O: GI bleed Z87.19 Penile swelling N48.89
--- NOTE | 2023-12-10 16:05 | Hospitalist Progress Note ---
Date of Service December 10, 2023 Assessment & Plan (1) Sepsis: Plan: 88-year-old male with past medical history of left carotid artery stenosis, history of GI bleed secondary to ulcer, history of alcohol use disorder, hypertension who was found on the floor in his house by his caregiver and was brought to the hospital on 11/22/2023. Patient was found to be obtunded and septic and also found to be in A-fib with RVR Sepsis present on admission, source likely pneumonia, likely aspiration pneumonia Acute metabolic encephalopathy- now resolved CT chest: no evidence of PE and showed some patchy airspace consolidation throughout the right upper lobe typical for pneumonia/aspiration pneumonitis. - Received 7 day course of IV Zosyn + Vancomycin after positive MRSA screen . Blood cultures: no growth finalized. Respiratory bio fire is negative CT head: no evidence of hemorrhage, mass effect and showed mild to moderate stenosis of the left supraclinoid internal carotid arteries bilaterally with left greater than right and near complete thrombosis of the origin of the left internal carotid artery. MRI brain: no acute intracranial abnormality. It did show some small chronic left posterior parieto-occipital infarcts. Neurology consulted - recommended that he be on antiplatelet/anticoagulation therapy but not a candidate due to GI bleeds - no indication for EEG or LP Continue Seroquel 50 mg p.o. nightly (2) NSTEMI (non-ST elevated myocardial infarction): Plan: Atrial fibrillation initally presented with RVR, but then rate controlled with carvedilol: Eventually converted to sinus rhythm with first-degree block Continue Carvedilol 12.5 mg twice daily Continue amlodipine 5 mg p.o. daily consideration of anticoagulation of afib by cardiology limited by GI bleed, hgb has dropped again no further eliquis Intermittent dosing of lasix by cardiology for HFpEF none recently as remains euvolemic Medical management for NSTEMI per cardiology EF shows preserved ejection fraction (3) Carotid stenosis: Plan: CT head: no evidence of hemorrhage, mass effect and showed mild to moderate stenosis of the left supraclinoid internal carotid arteries bilaterally with left greater than right and near complete thrombosis of the origin of the left internal carotid artery. Vascular surgery consulted - no intervention recommended d/t no CVA sx, and intracranial stenosis (4) H/O: GI bleed: Plan: Patient was found to have a GI bleed in the setting of NSAID use in 2021. He had an EGD which showed gastric ulcer with visible vessel treated with APC and clipped Currently no evidence of bleeding GI consulted - had offered family a EGD, but they declined this Avoid all NSAIDs Continue Protonix 40 mg daily Suspect bleeding either from GI source or from hematoma Has not required transfusion - no further labs at this time (5) Penile swelling: Plan: Swelling note around head of penis with band of skin swelling, pt reports pain. Hernandez was placed 12/03 for retention. concern for paraphimosis --> urology consult 12/06 reduced at bedside. Plan b/l leg pain continue to treat with IV pain medication. Patient would like to monitor symptoms for now. If pain persists, he is agreeable to contact his son to discuss any imaging modalities. Patient is medically stable for discharge when bed is available. 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 Jamie would like him to work with PT/OT and is agreeable to no further blood draws. Plan is for patient to go to SNF for skilled care Patient is medically stable for discharge to SNF when bed available CODE STATUS: DNR/DNI patient's son Jamie ([phone]) Admission and Anticipated Discharge Date Admission Date: November 22, 2023 Subjective Patient seen and examined this morning at bedside. Patient complaining of b/l LE pain but states pain medication is effective in controlling it. Patient unable to specific where in his legs were hurting but did state it was with movement. Physical Exam Constitutional: WD/WN, vitals as above Respiratory: normal respiratory effort, lungs clear to auscultation Cardiovascular: well perfused Musculoskeletal: no erythema or edema of b/l LE Psychiatric: A+Ox3, euthymic affect Results & Data Results & Data Vital Signs (Past 12 Hours) Vital Signs Temp Pulse Resp BP Pulse Ox O2 Del Method 12/10/23 15:33 37.1 C 67 18 169/71 H 94 Room Air 12/10/23 07:46 Room Air 12/10/23 07:15 36.6 C 75 18 162/71 H 93 Room Air PG Care Time/CCT Total # of Minutes Spent Total Time Spent with Patient: Total time spent is greater than 50% in coordination of care (as documented) at patient's floor/unit and/or counseling patient: Coding Level of Care Code 25835 SUB INP/OBS CARE 1/25MIN Diagnoses Sepsis A41.9 NSTEMI (non-ST elevated myocardial infarction) I21.4 Carotid stenosis I65.29 H/O: GI bleed Z87.19 Penile swelling N48.89
[2023-12-10 20:10] VITALS: RESP 16
[2023-12-11 07:55] VITALS: TEMP 97.5; O2SAT 95
--- NOTE | 2023-12-11 11:15 | Discharge Summary ---
Discharge Summary Date of Service December 11, 2023 Principal Dx & Hospital Course #1 = Principal Diagnosis (1) Sepsis: 88-year-old male with past medical history of left carotid artery stenosis, history of GI bleed secondary to ulcer, history of alcohol use disorder, hypertension who was found on the floor in his house by his caregiver and was brought to the hospital on 11/22/2023. Patient was found to be obtunded and septic and also found to be in A-fib with RVR Sepsis present on admission, source likely pneumonia, likely aspiration pneumonia Acute metabolic encephalopathy- now resolved CT chest: no evidence of PE and showed some patchy airspace consolidation throughout the right upper lobe typical for pneumonia/aspiration pneumonitis. - Received 7 day course of IV Zosyn + Vancomycin after positive MRSA screen . Blood cultures: no growth finalized. Respiratory bio fire is negative CT head: no evidence of hemorrhage, mass effect and showed mild to moderate stenosis of the left supraclinoid internal carotid arteries bilaterally with left greater than right and near complete thrombosis of the origin of the left internal carotid artery. MRI brain: no acute intracranial abnormality. It did show some small chronic left posterior parieto-occipital infarcts. Neurology consulted - recommended that he be on antiplatelet/anticoagulation therapy but not a candidate due to GI bleeds - no indication for EEG or LP Continue Seroquel 50 mg p.o. nightly (2) NSTEMI (non-ST elevated myocardial infarction): Atrial fibrillation initally presented with RVR, but then rate controlled with carvedilol: Eventually converted to sinus rhythm with first-degree block Continue Carvedilol 12.5 mg twice daily Continue amlodipine 5 mg p.o. daily Anticoagulation w/ Eliquis was considered however limited by GI bleed and was discontinued. Intermittent dosing of Lasix by cardiology for HFpEF, however none recently as patient was euvolemic. EF shows preserved EF, medical management of NSTEMI. (3) Carotid stenosis: CT head: no evidence of hemorrhage, mass effect and showed mild to moderate stenosis of the left supraclinoid internal carotid arteries bilaterally with left greater than right and near complete thrombosis of the origin of the left internal carotid artery. Vascular surgery consulted - no intervention recommended d/t no CVA sx, and intracranial stenosis (4) H/O: GI bleed: Patient was found to have a GI bleed in the setting of NSAID use in 2021. He had an EGD which showed gastric ulcer with visible vessel treated with APC and clipped Currently no evidence of bleeding GI consulted- had offered family a EGD, but they declined this Avoid all NSAIDs Continue Protonix 40 mg daily Suspect bleeding either from GI source or from hematoma Did not require transfusion - no further labs at this time (5) Penile swelling: Swelling note around head of penis with band of skin swelling, pt reports pain. Hernandez was placed 12/03 for retention. concern for paraphimosis --> urology consult 12/06 reduced at bedside. Plan Patient discharged to inpatient rehab facility on 12/10. per admission patient did not take medications at home. He was discharged with Norvasc 5mg, Melatonin 3mg, Seroquel 50mg, Protonix 40mg, Coreg 6.25mg BID, Flomax 0.4mg, Neurontin 100mg, and Flonase 2 sprays daily. Sent with Tylenol prn and Oxycodone prn (severe pain) while inpatient patient complained of b/l leg pain, likely due to underlying arthritis. He was controlled with IV Diluadid inpatient. Discussed with son via phone extensively 12/10. Admission HPI Per Admitting Provider Joshua Arriaga is a 88-year-old male who was found down at home by his home health nurse with a posterior scalp hematoma/abrasion, garbled speech, and altered mentation and who is unable to provide meaningful history. Joshua is an 88-year-old male with a past medical history of anemia, IBS, stenosis of left carotid artery, melena/GI bleed, and hypertension. Patient is obtunded at time of assessment, collateral is collected with the assistance of his caregiver. By report he has had 1 to 2 weeks of cough but had refused to go to the hospital. On a caregiver check and he was found down and was brought to the hospital for evaluation. Additional history is limited. Patient's son Jamie is out of town but can be reached at [phone]. Per caregiver other than having a cough for last 2 weeks seem to have been at his normal baseline recently. If prescribed meds, is unclear if he takes them and has never been seen taking home medications. No known drug allergies. No recent tobacco or alcohol use to caregivers knowledge; although does have a reported history in his chart of prior alcohol abuse. Medical History: Reviewed Medications: Reviewed Surgical History: Reviewed Family history: Reviewed Allergies: Reviewed Social History: Reviewed Code Status: DNR/DNI Discharge Exam Constitutional WD/WN, vitals as above Eyes PERRL, conjunctivae normal, anicteric sclerae Respiratory normal respiratory effort, lungs clear to auscultation Cardiovascular RRR, no murmur, no edema Skin no rashes, warm and dry Psychiatric A+Ox3, euthymic affect Discharge Plan Discharge Items Patient Disposition: Transfer [facility] Reason For Visit: sepsis, pna Discharge Diagnosis: Sepsis Activity: Resume your previous activity Non-emergency contact: Primary Care Provider Call non-emergency contact if: you have any medication questions and your symptoms worsen Follow-up/Referrals: Pro,Nicolas Weaver MD [Primary Care Provider] - Diet: Regular Diet Texture: Dental soft (bite-sized) Addtl Attending Provider Instructions: Mr. Arriaga, You were recently hospitalized and were found to have pneumonia and be septic. You were treated accordingly with antibiotics and your symptoms resolved. You are being discharged to a rehab facility to help with your strength prior to returning home. Please see recommendations below regarding your discharge. 1. Medications that were given to you upon your visit have also been sent with you to rehab. These include: Amlodipine 5mg daily for your blood pressure Melatonin 3mg daily to aide with sleep at bedtime Quetiapine 50mg at bedtime to help with behavior and sleep Pantoprazole 40mg daily to help with GERD Carvedilol 6.25 mg twice daily to help with blood pressure Tamsulosin 0.4mg daily to help with urinary retention Gabapentin 100mg nightly to help with nerve pain Flonase nasal spray to help with post-nasal drip. Tylenol and Oxycodone have been prescribed to aid with your leg pain. 2. Please follow up with your PCP within 1-2 weeks of discharge. If you develop any chest pain, shortness of breath, dizziness, or light headedness please report to the ER for further care. Sincerely, Savtia Singh PA-C Pending Studies at Discharge: No Stand-Alone Forms: My [facility] Skilled Items Patient informed of condition?: Yes DNR: Yes Discharge Level of Care: Acute rehab Communicable Disease: Yes Discharge Prognosis: Stable Lines: None Urinary Catheter: Yes Medications and DC Order Prescriptions: New carvedilol 6.25 mg Tablet 6.25 mg PO BIDM Qty: 60 0RF amlodipine [Norvasc] 5 mg Tablet 5 mg PO QAM Qty: 30 0RF acetaminophen [Tylenol Extra Strength] 500 mg Tablet 1,000 mg PO Q8H PRN (Reason: pain (scale score 4-6)) Qty: 20 0RF tamsulosin 0.4 mg Capsule 0.4 mg PO QAM Qty: 30 0RF quetiapine 25 mg Tablet 50 mg PO HS Qty: 30 0RF melatonin 3 mg Tablet 3 mg PO HS Qty: 30 0RF pantoprazole 40 mg Tablet,Delayed Release (Dr/Ec) 40 mg PO QAM Qty: 30 0RF gabapentin 100 mg Capsule 100 mg PO PM Qty: 30 0RF fluticasone propionate 50 mcg/actuation Wise,Suspension 2 spray NA QAM Qty: 1 0RF oxycodone 5 mg tablet 5 mg PO Q6H PRN (Reason: pain (scale score 7-10)) Qty: 14 0RF amlodipine 5 mg tablet 5 mg PO DAILY Qty: 30 0RF melatonin 3 mg capsule 3 mg PO HS Qty: 30 0RF quetiapine 50 mg tablet 50 mg PO HS Qty: 30 0RF pantoprazole 40 mg tablet,delayed release (DR/EC) 40 mg PO DAILY Qty: 30 0RF carvedilol 6.25 mg tablet 6.25 mg PO BID Qty: 60 0RF Rx Instructions: must administer with a meal/food tamsulosin 0.4 mg capsule 0.4 mg PO DAILY Qty: 30 0RF gabapentin 100 mg capsule 100 mg PO HS Qty: 30 0RF fluticasone propionate [Flonase Allergy Relief] 50 mcg/actuation spray,suspension 2 spray intranasal DAILY Qty: 16 0RF Rx Instructions: administer into each nostril acetaminophen 500 mg capsule 1,000 mg PO Q8H Qty: 30 0RF oxycodone 5 mg tablet 5 mg PO Q6H PRN (Reason: pain (scale score 7-10)) Qty: 14 0RF Discharge Orders: Discharge Order (Routine); Ordered 12/11/23 Ordered By: Savita Singh Admission Data Admit Date/Time: 11/22/23 21:00 Attending Provider: Saborio,Timbo A Admit Provider: Collin Lopez Primary Care Provider: Nicolas Foreman Other Providers: Tia Davison; Nicholas Monreal; Prasad Carrington; Thuy Rosado; Dylan Merrill; Jeovany Gleason; Jacob Giron; Joce Graham; Tim Diez Other Interventions: Discharge Summary Assessment (RN) Last Done: 12/11/23 15:13 Hospital Stay Data Consultations 11/22/23 19:39 ED Decision to Admit Stat 11/23/23 10:29 Consult Cardiology Routine 11/23/23 10:33 Consult Vascular Surgery Routine 11/23/23 10:59 Consult Neurology Routine 11/24/23 10:41 Consult Gastroenterology Routine 11/29/23 08:29 Consult Gastroenterology Stat 12/07/23 10:58 Consult Urology Routine Diagnostic Imagining Performed 11/22/23 14:51 CT angio head w con Stat CT angio neck with con Stat CT head/brain wo con Stat 11/22/23 16:20 CT abd pelvis IV con only Stat 11/23/23 10:14 MRI Brain [MR brain wo/w con] Stat 11/23/23 10:36 US venous duplex leg [US venous doppler LE BI] Stat 11/23/23 12:40 CT angio chest PE protocol Stat Pending Results Patient Have Any Pending Studies at Discharge: No Discharge Instructions Given to Patient (Per Discharging Provider) Mr. Arriaga, Ambrosio were recently hospitalized and were found to have pneumonia and be septic. You were treated accordingly with antibiotics and your symptoms resolved. You are being discharged to a rehab facility to help with your strength prior to returning home. Please see recommendations below regarding your discharge. 1. Medications that were given to you upon your visit have also been sent with you to rehab. These include: Amlodipine 5mg daily for your blood pressure Melatonin 3mg daily to aide with sleep at bedtime Quetiapine 50mg at bedtime to help with behavior and sleep Pantoprazole 40mg daily to help with GERD Carvedilol 6.25 mg twice daily to help with blood pressure Tamsulosin 0.4mg daily to help with urinary retention Gabapentin 100mg nightly to help with nerve pain Flonase nasal spray to help with post-nasal drip. Tylenol and Oxycodone have been prescribed to aid with your leg pain. 2. Please follow up with your PCP within 1-2 weeks of discharge. If you develop any chest pain, shortness of breath, dizziness, or light headedness please report to the ER for further care. Sincerely, Savita Singh PA-C Supervising Physician Co-Signing Physician Notes During face to face encounter, I obtained a brief physical examination, discussed hospital stay with patient and discharge instructions with patient. I discussed discharge plan of care with RICO Singh. I reviewed above note and agree with it except for the following: Patient seen for metabolic encephalopathy. You were treated for pneumonia. Symptoms resolved. Total Time Total Time Spent Total Time Spent (In Minutes): 60 Total Time Includes: Examination of the Patient, Discharge Planning and Medication Reconciliation Coding Level of Care Code 76735 INP/OBS DISCH >30 MIN Diagnoses Sepsis A41.9 NSTEMI (non-ST elevated myocardial infarction) I21.4 Carotid stenosis I65.29 H/O: GI bleed Z87.19 Penile swelling N48.89
[2023-12-11 15:13] VITALS: BP 178/63; PULSE 74
== END 2023-12-11 15:13 | DRG 871 ==
LOC: ED 14:41 → SUATTDRO 21:00 → 2S 21:00 → 3N 12-02 22:30
DX: G93.41 Metabolic encephalopathy; Z86.73 Personal history of transient ischemic attack (TIA), and cerebral infarction without residual deficits; F10.21 Alcohol dependence, in remission; I21.4 Non-ST elevation (NSTEMI) myocardial infarction; L03.115 Cellulitis of right lower limb; Z81.1 Family history of alcohol abuse and dependence; R79.1 Abnormal coagulation profile; R33.9 Retention of urine, unspecified; R01.1 Cardiac murmur, unspecified; R74.8 Abnormal levels of other serum enzymes; E03.9 Hypothyroidism, unspecified; I65.23 Occlusion and stenosis of bilateral carotid arteries; Z83.6 Family history of other diseases of the respiratory system; J69.0 Pneumonitis due to inhalation of food and vomit; I50.33 Acute on chronic diastolic (congestive) heart failure; A41.9 Sepsis, unspecified organism; D62 Acute posthemorrhagic anemia; E83.42 Hypomagnesemia; I11.0 Hypertensive heart disease with heart failure; L03.116 Cellulitis of left lower limb; Z87.19 Personal history of other diseases of the digestive system; Z22.322 Carrier or suspected carrier of Methicillin resistant Staphylococcus aureus; E87.6 Hypokalemia; M50.30 Other cervical disc degeneration, unspecified cervical region; Z66 Do not resuscitate; N47.2 Paraphimosis; I48.0 Paroxysmal atrial fibrillation; N17.9 Acute kidney failure, unspecified; Z87.891 Personal history of nicotine dependence

== ENCOUNTER 2024-02-29 15:16 | Observation (INO) ==
--- OUTSIDE RECORDS SUMMARY | 2024-02-29 15:22 | External Medical Summary | Continuity Of Care Document ---
Author Name Unknown Address [address] [place] [address] Organization [facility] ( ) Care Team Providers Care Luc[place] Farmer Name Role Phone Heather Mcgraw Primary Care Provider [phone] Problems Code Description Start Date End Date Status A41.9 Sepsis, unspecified organism 12/11/202300/0 000 Active J18.9 Pneumonia, unspecified organism 12/11/20230 Active I65.22 Occlusion and stenosis of left carotid artery 1 Active K92.2 Gastrointestinal hemorrhage, unspecified 2023 Active I10. 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) 12/11/2023 Active K58.9 Irritable bowel syndrome, unspecified Active I67.9 Cerebrovascular disease, unspecified 12/11/2023 Active E03.9 Hypothyroidism, unspecified 12/11/2023 00 Active VITAL SIGNS Date Time Diastolic blood pressure Systolic blood pressure Body height Body weight Temperature SpO2 Blood Sugar Pulse Respirations 017 31753 1 65.00 mm[Hg] - Sitting 158.00 mm[Hg] - Sitting 70 NI 98.10 Ear 94.00 % 76.00/ min 20.00/min 08311 017 01569 0 65.00 mm[Hg] - Lying Down 158.00 mm[Hg] - Lying Down 98.10 Ear 76.00/ min 20.00/min 88981 018 88150 0 13729 018 25284 0 95453 018 36588 9 159.00 NI 13269 018 43854 0 65.00 mm[Hg] - Sitting 158.00 mm[Hg] - Sitting 98.10 Ear 76.00/ min 20.00/min 83307 019 78797 9 65.00 mm[Hg] - Lying Down 158.00 mm[Hg] - Lying Down 98.10 Oral 76.00/ min 20.00/min 019 08795 3 93740 6 158.00 NI 16696 5 63.00 mm[Hg] - Sitting 134.00 mm[Hg] - Sitting 98.80 Ear 95.00 % 65.00/ min 18.00/min 34580 6 63.00 mm[Hg] - Sitting 134.00 mm[Hg] - Sitting 98.80 Oral 65.00/ min 18.00/min 020 43880 0 63.00 mm[Hg] - Lying Down 134.00 mm[Hg] - Lying Down 98.80 Ear 65.00/ min 18.00/min 020 07665 0 62.00 mm[Hg] - Sitting 145.00 mm[Hg] - Sitting 98.10 Ear 95.00 % 59.00/ min 18.00/min 56865 020 77761 1
--- OUTSIDE RECORDS SUMMARY | 2024-02-29 15:22 | External Medical Summary | Continuity of Care Document ---
Author Name Unknown Organization [facility] [address] Address [address] [place], [place] [id number] Care Team Providers Care Product Safety Technician Name Role Phone Nicolas Primary Care Physician [phone] Encounter [id number] Date(s): 11/22/23 - 11/22/23 [facility] [address] [place], [place] [id number] [place] Discharge Disposition: Home or Self Care Attending Physician: MD Cummings Evan David Referring Physician: MD Bryn, Nadia Harrell Allergies, Adverse Reactions, Alerts No Known Medication Allergies Medications ferrous sulfate 325 mg (65 mg elemental iron) oral delayed release tablet Start: 06/20/21 8:06:00 AM EDT, 1 tab, PO, Daily Start Date: 06/20/21 Status: Ordered hydrALAZINE 50 mg oral tablet Start: 06/20/21 8:04:00 AM EDT, 1 tab, PO, tid Start Date: 06/20/21 Status: Ordered hydroCHLOROthiazide-losartan 12.5 mg-50 mg oral tablet Start: 06/20/21 8:04:00 AM EDT, 1 tab, PO, bid Start Date: 06/20/21 Status: Ordered LORazepam 1 mg oral tablet Start: 06/20/21 8:03:00 AM EDT, 1 tab, PO, qhs Start Date: 06/20/21 Status: Ordered Ocuvite PreserVision oral tablet Start: 06/20/21 8:06:00 AM EDT, 1 tab, PO, Daily Start Date: 06/20/21 Status: Ordered pantoprazole 40 mg oral delayed release tablet TAKE 1 TABLET BY MOUTH EVERY 12 HOURS Start Date: 06/20/21 Status: Ordered potassium chloride 40 mEq/15 mL oral liquid Start: 06/20/21 8:04:00 AM EDT, 15 mL, PO, Daily Start Date: 06/20/21 Status: Ordered rosuvastatin 5 mg oral tablet Start: 06/20/21 8:03:00 AM EDT, 1 tab, PO, Daily Start Date: 06/20/21 Status: Ordered Problem List Condition Confirmation Course Effective Dates Status Health St atus Informant Anemia Confirmed Active Gastric ulcer Confirmed Active Procedures Procedure Date Related Diagnosis Body Site Status EGD - Esophagogastroduodenoscopy 1 05/18/21 Completed MRI 2 05/04/18 Completed Echocardiogram 3 05/03/18 Complete d 1Z-line irregular, 36 cm from the incisors. Moderate schatzki ring. 3 cm hiatal hernia. Red blood in the entire stomach. Oozing gastric ulcer with visible vessel. NSAID induced etiology, Injected. Treated with argon plasma coagulation. Clip was placed. Blood inthe second protion of the duodenum. The examination was otherwise normal No specimens collected. 2Brain without contrast No acute intracranial abnormality. Age related atrophy and chronic small vessel change 3Left ventricular systolic function is normal no regional wall motion abnormalities noted ejection fraction =60-65% there is borderline concentric left ventricular hypertrophy Grade I diastolic dysfunction, (abnormal relaxation pattern) There is mild mitral regurgitation Social History Social History Type Response Smoking Status Former Smoker, quit > 1 yr Sex Male Sex Representation Male (finding) Patient Care team information Care Team Personnel Name: MD Foreman Jeffrey W Position: Referring DIRECT Member Role: Primary Care Provider Address: [facility] [address] [place] [address] [place] Care Team Related Persons Name: ROBERTA RUIZ
--- OUTSIDE RECORDS SUMMARY | 2024-02-29 15:22 | External Medical Summary | Continuity Of Care Document ---
Author Name Unknown Address [address] [facility] [place] [address] Organization [facility] ( ) Care Team Providers Care Examination Supervisor Name Role Phone Heather Mcgraw Primary Care Provider [phone] Problems Code Description Start Date End Date Status A41.9 Sepsis, unspecified organism 12/11/2023 000 Active J18.9 Pneumonia, unspecified organism 12/11/2023 Active I65.22 Occlusion and stenosis of left carotid artery 1 Active K92.2 Gastrointestinal hemorrhage, unspecified 2023 Active I10. 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 Pleural effusion, not elsewhere classified 11/25 Active D51.9 Vitamin B12 deficiency anemia, unspecified 11/25 Active K76.0 Fatty (change of) liver, not elsewhere classifi ed 12/18/2023 Active VITAL SIGNS Date Time Diastolic blood pressure Systolic blood pressure Body height Body weight Temperature SpO2 Blood Sugar Pulse Respirations 83024 017 88950 1 65.00 mm[Hg] - Sitting 158.00 mm[Hg] - Sitting 70 NI 98.10 Ear 94.00 % 76.00/ min 20.00/min 70718 017 53677 0 65.00 mm[Hg] - Lying Down 158.00 mm[Hg] - Lying Down 98.10 Ear 76.00/ min 20.00/min 60420 018 50731 0 018 68153 0 018 42325 9 159.00 NI 018 56911 0 65.00 mm[Hg] - Sitting 158.00 mm[Hg] - Sitting 98.10 Ear 76.00/ min 20.00/min 28366 019 03692 9 65.00 mm[Hg] - Lying Down 158.00 mm[Hg] - Lying Down 98.10 Oral 76.00/ min 20.00/min 56453 019 86887 3 019 40533 6 158.00 NI 019 63709 5 63.00 mm[Hg] - Sitting 134.00 mm[Hg] - Sitting 98.80 Ear 95.00 % 65.00/ min 18.00/min 96446 019 29688 6 63.00 mm[Hg] - Sitting 134.00 mm[Hg] - Sitting 98.80 Oral 65.00/ min 18.00/min 22205 020 09098 0 63.00 mm[Hg] - Lying Down 134.00 mm[Hg] - Lying Down 98.80 Ear 65.00/ min 18.00/min 86196 020 12571 0 62.00 mm[Hg] - Sitting 145.00 mm[Hg] - Sitting 98.10 Ear 95.00 % 59.00/ min 18.00/min 04197 020 97065 1 41101 021 29426 4 58.00 mm[Hg] - Sitting 158.00 mm[Hg] - Sitting 99.10 Ear 94.00 % 65.00/ min 18.00/min 82426 022 00805 8 98.80 Oral 76968 022 17286 9 56.00 mm[Hg] - Sitting 140.00 mm[Hg] - Sitting 98.80 Oral 94.00 % 78.00/ min 18.00/min 88423 024 09678 9 70 NI 97917 024 60704 7 158.00 NI 024 91959 6 73.00 mm[Hg] - Sitting 163.00 mm[Hg] - Sitting 98.30 Ear 95.00 % 69.00/ min 18.00/min 42653 025 39599 0 62.00 mm[Hg] - Sitting 119.00 mm[Hg] - Sitting 99.00 Ear 97.00 % 66.00/ min 16.00/min 88916 026 29647 5 99.70 Oral 99387 026 12909 8 64.00 mm[Hg] - Sitting 151.00 mm[Hg] - Sitting 99.10 Ear 97.00 % 67.00/ min 16.00/min 51385 027 79530 4 99.70 Oral 83305 028 06217 4 68.00 mm[Hg] - Sitting 115.00 mm[Hg] - Sitting 98.20 Ear 97.00 % 63.00/ min 20.00/min 54111 029 58832 3 66.00 mm[Hg] - Sitting 165.00 mm[Hg] - Sitting 97.30 X-Other 97.00 % 62.00/ min 18.00/min 48794 030 18552 9 97.70 Oral 07621 030 65500 0 68.00 mm[Hg] - Sitting 109.00 mm[Hg] - Sitting 98.70 Ear 98.00 % 70.00/ min 18.00/min 14030 031 76987 3 98.60 Oral 51301 031 92006 0 98.60 Oral 46015 031 46756 1 157.00 NI 72189 031 77023 0 69.00 mm[Hg] - Sitting 145.00 mm[Hg] - Sitting 97.80 Ear 96.00 % 65.00/ min 20.00/min Immunizations Vaccine Date Status COVID-19 08/31/2020 Completed COVID-19 09/28/2020 Completed COVID-19 07/10/2021 Completed Influenza 04/16/2023 Completed (PPSV23)Pneumococcal 08/10/1995 Completed
--- OUTSIDE RECORDS SUMMARY | 2024-02-29 15:22 | External Medical Summary | Continuity Of Care Document ---
Author Name Unknown Address [address] [place] [address] Organization [facility] ( ) Care Team Providers Care Scissors Grinder Name Role Phone Heather Mcgraw Primary Care Provider [phone] Problems Code Description Start Date End Date [...] Temperature SpO2 Blood Sugar Pulse Respirations 017 97654 1 65.00 mm[Hg] - Sitting 158.00 mm[Hg] - Sitting 70 NI 98.10 Ear 94.00 % 76.00/ min 20.00/min 83738 017 81934 0 65.00 mm[Hg] - Lying Down 158.00 mm[Hg] - Lying Down 98.10 Ear 76.00/ min 20.00/min 21176 018 41717 0 34522 018 54286 0 41894 018 52502 9 159.00 NI 43315 018 43939 0 65.00 mm[Hg] - Sitting 158.00 mm[Hg] - Sitting 98.10 Ear 76.00/ min 20.00/min 47674 019 41810 9 65.00 mm[Hg] - Lying Down 158.00 mm[Hg] - Lying Down 98.10 Oral 76.00/ min 20.00/min 51134 019 52340 3 83282 019 33834 6 158.00 NI 47946 019 95653 5 63.00 mm[Hg] - Sitting 134.00 mm[Hg] - Sitting 98.80 Ear 95.00 % 65.00/ min 18.00/min 29932 019 67158 6 63.00 mm[Hg] - Sitting 134.00 mm[Hg] - Sitting 98.80 Oral 65.00/ min 18.00/min 59265 020 20548 0 63.00 mm[Hg] - Lying Down 134.00 mm[Hg] - Lying Down 98.80 Ear 65.00/ min 18.00/min 63698 020 48467 0 62.00 mm[Hg] - Sitting 145.00 mm[Hg] - Sitting 98.10 Ear 95.00 % 59.00/ min 18.00/min 71436 020 49069 1 09537 021 71664 4 58.00 mm[Hg] - Sitting 158.00 mm[Hg] - Sitting 99.10 Ear 94.00 % 65.00/ min 18.00/min 46170 022 96888 8 98.80 Oral 32859 022 50773 9 56.00 mm[Hg] - Sitting 140.00 mm[Hg] - Sitting 98.80 Oral 94.00 % 78.00/ min 18.00/min 93025 024 97454 9 70 NI Immunizations Vaccine Date Status COVID-19 08/31/2020 Completed COVID-19 09/28/2020 Completed COVID-19 07/10/2021 Completed Influenza 04/16/2023 Completed (PPSV23)Pneumococcal 08/10/1995 Completed
--- OUTSIDE RECORDS SUMMARY | 2024-02-29 15:22 | External Medical Summary | Continuity Of Care Document ---
Author Name Unknown Address [address] [place] [address] Organization [facility] ( ) Care Team Providers Care Nuclear Plant Operator Name Role Phone Heather Mcgraw Primary Care Provider [phone] VITAL SIGNS Date Time Diastolic blood pressure Systolic blood pressure Body height Body weight Temperature SpO2 Blood Sugar Pulse Respirations 017 04933 1 65.00 mm[Hg] - Sitting 158.00 mm[Hg] - Sitting 70 NI 98.10 Ear 94.00 % 76.00/ min 20.00/min 017 47738 0 65.00 mm[Hg] - Lying Down 158.00 mm[Hg] - Lying Down 98.10 Ear 76.00/ min 20.00/min 018 12521 0
--- OUTSIDE RECORDS SUMMARY | 2024-02-29 15:22 | External Medical Summary | Continuity Of Care Document ---
Author Name Unknown Address [address] [place] [address] Organization [facility] ( ) Care Team Providers Care Imaging Analyst Name Role Phone Heather Mcgraw Primary Care Provider [phone] VITAL SIGNS Date Time Diastolic blood pressure Systolic blood pressure Body height Body weight Temperature SpO2 Blood Sugar Pulse Respirations 017 62614 1 65.00 mm[Hg] - Sitting 158.00 mm[Hg] - Sitting 70 NI 98.10 Ear 94.00 % 76.00/ min 20.00/min 017 36012 0 65.00 mm[Hg] - Lying Down 158.00 mm[Hg] - Lying Down 98.10 Ear 76.00/ min 20.00/min 018 93851 0
--- OUTSIDE RECORDS SUMMARY | 2024-02-29 15:22 | External Medical Summary | Continuity Of Care Document ---
Author Name Unknown Address [address] [place] [address] Organization [facility] ( ) Care Team Providers Care Insurance Risk Analyst Name Role Phone Heather Mcgraw Primary Care Provider [phone] VITAL SIGNS Date Time Diastolic blood pressure Systolic blood pressure Body height Body weight Temperature SpO2 Blood Sugar Pulse Respirations 017 [id number] 1 65.00 mm[Hg] - Sitting 158.00 mm[Hg] - Sitting 70 NI 98.10 Ear 94.00 % 76.00/ min 20.00/min 017 21311 0 65.00 mm[Hg] - Lying Down 158.00 mm[Hg] - Lying Down 98.10 Ear 76.00/ min 20.00/min 018 [id number] 0
--- OUTSIDE RECORDS SUMMARY | 2024-02-29 15:22 | External Medical Summary | Continuity Of Care Document ---
Author Name Unknown Address [address] [place] [address] Organization [facility] ( ) Care Team Providers Care Dowel Pin Man Name Role Phone Heather Mcgraw Primary Care Provider [phone] VITAL SIGNS Date Time Diastolic blood pressure Systolic blood pressure Body height Body weight Temperature SpO2 Blood Sugar Pulse Respirations 017 [id number] 1 65.00 mm[Hg] - Sitting 158.00 mm[Hg] - Sitting 70 NI 98.10 Ear 94.00 % 76.00/ min 20.00/min 017 [id number] 0 65.00 mm[Hg] - Lying Down 158.00 mm[Hg] - Lying Down 98.10 Ear 76.00/ min 20.00/min 018 [id number] 0
--- NOTE | 2024-02-29 15:55 | Emergency Department Note ---
Impression & Plan Bilateral edema of lower extremity, Dizziness, Decubitus ulcer of sacral area ED Provider Note ED Provider Note NAME: ANA RUIZ AGE:88 SEX: Male : 1935 ARRIVES VIA: Private vehicle INFORMANT: Patient ED PROVIDER(s): Ann Bean DO CHIEF COMPLAINT: Lower extremity edema, dizziness HPI: This is an 88-year-old male who presents emergency department for evaluation of lower extremity swelling and dizziness. There is a staff member at bedside who is part of an agency that has been working with the patient over the course of the last year or so. Patient has no local family and his a little more than a year ago. Staff member states they became involved after his as he needed help around the house. She states earlier in the fall he had sustained a fall at home and was placed in [facility] in [place] with the idea of short-term rehab and eventual return to home. She states they have become more more concerned as every time they visit him out at [facility] he is seated in his recliner and states he is not getting any PT/OT and is minimally moving. They were concerned that his placement there is becoming more detrimental than helpful. Patient does all his own decision making yet and would still like to try and return home. Staff at bedside states he signed himself out of [facility] today and they brought him here for further evaluation prior to making decision of could he return home with their continued care or would he need other placement for short-term rehab for physical therapy. Staff member also states he was sick a few weeks ago with COVID. PAST MEDICAL HISTORY:See Below PAST SURGICAL HISTORY:See Below FAMILY HISTORY:See Below SOCIAL HISTORY:See Below HOME MEDICATIONS:See Below ALLERGIES:See Below VITALS:See Below PHYSICAL EXAMINATION: GENERAL: alert, well appearing, well nourished, no distress, non-toxic EYE EXAM: normal conjunctiva, PERRL and EOM's grossly intact OROPHARYNX: no exudate, no erythema, lips, buccal mucosa, and tongue normal and mucous membranes are dry NECK: supple, no nuchal rigidity, no adenopathy, non-tender LUNGS: Clear to auscultation. Normal chest wall mechanics, no w/r/r HEART: no murmurs, S1 normal and S2 normal ABDOMEN: abdomen soft, non-tender, normo-active bowel sounds, no masses, no rebound or guarding. BACK: Back is symmetrical on inspection and there is no deformity, no midline tenderness, no CVA tenderness. Stage I sacral decubitus noted. SKIN: no rashes, petechiae, orbruising UPPER EXTREMITIES: upper extremities are grossly normal. FROM, nml pulses b/l. LOWER EXTREMITIES: 3+ b/l pitting edema up to the knee. FROM, nml pulses b/l. NEURO EXAM: Normal sensorium, cranial nerves II-XII grossly intact, normal speech, no facial droop,nogross weakness of arms, no gross weakness of legs. Gross sensation intact. No ataxia. Vital Signs: reviewed and remarkable Differential Diagnosis: benign positional vertigo, dehydration, hypovolemia, anemia, tumor, hypoglycemia, electrolyte abnormalities, ICH, CVA, dysrhythmia, as well as others were entertained. MEDICAL DECISION MAKING: This is an 88 yo male who presents with staff member due to concern for evaluation for dizziness and lower extremity edema. Patient also noted to have skin breakdown that staff was concerned about. VS stable. Labs drawn and sent, IV established, EKG and CXR performed and interpreted at bedside, and patient placed on telemetry. Patient sent for CT head additionally. Urine collected and sent and nasal swab performed. Labs reassuring, CT reassuring, urine without infection. Patient is known to have had COVID recently and nasal swab still positive likely from that. I did ask case mgmt to speak with the patient and staff member regarding disposition and goals. At this time they recommend that the patient be admitted until other services can be put in place for patient to return home which is his ultimate goal. Case discussed with the hospitalist team for additional evaluation and mgmt. Consultation(s): 193: Discussed with Dr. Carrington, [facility] hospitalist team, for additional evaluation and management. ER Treatment Provided: See below Diagnostics Interpreted By Me: -ECG: Sinus bradycardia 57, first-degree AV block, normal axis, normal intervals, no acute ST/T wave changes -Cardiac Monitoring: An order was placed for continuous cardiac monitoring. The monitor shows a rate of 70 with normal sinus rhythm. -Laboratory studies: As stated above and show below. -Imaging studies: X-ray Chest: A single view study of the chest was reviewed and was negative for cardiomegaly, focal infiltrate, effusion, pulmonary edema, or wide mediastinum. 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, ethmoidal Sinusitis, maxillary, chronic Dizziness (Acute) Bilateral edema of lower extremity (Acute) Paraphimosis Penile swelling Anemia Neck pain Acute encephalopathy Acute confusion (Acute) Garbled speech (Acute) Elevated lactic acid level (Acute) Elevated troponin (Acute) Altered mental status (Acute) Murmur, cardiac Paroxysmal A-fib H/O alcohol dependence Afib H/O: GI bleed Carotid stenosis NSTEMI (non-ST elevated myocardial infarction) Sepsis Hypertension Metabolic encephalopathy Acute kidney injury Acute hyponatremia (Acute) Dark stools (Acute) Weakness (Acute) Dark stools Hyponatremia Low vitamin B12 level Anemia Hypothyroidism GI bleed Hypomagnesemia (Acute) Falls Vertebral artery stenosis Hypokalemia Bradycardia Contusion of multiple sites (Acute) Hyperbilirubinemia (Acute) Hepatic steatosis Arthritis (Acute) Irritable bowel syndrome (Acute) Macular degeneration (Acute) Mitral regurgitation (Acute) Stenosis of left carotid artery greater than 50% (Acute) Medical History Symptomatic anemia Influenza A Tinea unguium Cellulitis of leg, right Gastric ulcer GI bleed History of CVA (cerebrovascular accident) Elevated CK Hyperglycemia Insomnia Hypothyroidism Anxiety Alcohol abuse Hypertensive urgency Surgical History History of colonoscopy History of tonsillectomy History of cataract surgery Family History Mother , age 90 of uncertain causes. Anxiety Father , age 55 of pulmonary disease and alcoholism Lung disease Sister Kidney stone Denies family history of Ovarian cancer Prostate cancer Myocardial infarction Breast cancer Colorectal cancer Social History Smoking Status: Former smoker Tobacco Type: Cigarettes Age Started Using Tobacco: 20; Age Quit Using Tobacco: 60; Cigarettes Per Day: social smoker, off and on; Second Hand Exposure: No; Do You Dip or Chew Tobacco: No; Hx Alcohol Use: No Hx Substance Use: No Preferred Language: Romansh Communication Ability: Impaired Visual Impairment: No Limitations Hearing Ability: Normal Wire Inserter Required: No Beliefs That Will Affect Care: None marital status: Current Living Situation: Alone Current Living Situation Comment: Lives alone with spouse who is WCB current occupational status: retired 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 Feels Safe at Home: Yes Childhood Exposure to Second-Hand Smoke: Yes Diet: regular Dental Care, Regularly: No Physical Activity Frequency: Does not Exercise Seatbelt Use: always Sunscreen Use: No Assistive Devices: Glasses Allergies Allergies Allergy/AdvReac Type Severity Reaction Status Date / Time No Known Allergies Allergy Verified 02/29/24 18:14 Home Meds Home Medications Medication Instructions Recorded Confirmed acetaminophen 325 mg tablet 650 mg PO .Q4H PRN Fever Or Pain 02/29/24 02/29/24 acetaminophen 325 mg tablet 650 mg PO BID 02/29/24 02/29/24 benzonatate 100 mg capsule 100 mg PO Q8H PRN Cough 02/29/24 02/29/24 bisacodyl 10 mg rectal suppository 10 mg NC DAILY PRN Constipation 02/29/24 02/29/24 carboxymethylcellulose sodium 1 % 2 drp OPB Q4H PRN Dry Eye(S) 02/29/24 02/29/24 eye drops (Artificial Tears (carboxymethylcellulose)) escitalopram oxalate 5 mg tablet 5 mg PO QAM 02/29/24 02/29/24 (Lexapro) ferrous sulfate 325 mg (65 mg 35 mg PO DAILY 02/29/24 02/29/24 iron) tablet,delayed release gabapentin 300 mg capsule 300 mg PO HS 02/29/24 02/29/24 guaifenesin 600 mg tablet, 600 mg PO .AM&HS 02/29/24 02/29/24 extended release 12 hr (Mucinex) ipratropium 0.5 mg-albuterol 3 mg 3 ml inhalation Q4H PRN Shortness 02/29/24 02/29/24 (2.5 mg base)/3 mL nebulization Of Breath Or Wheezing soln lanolin alcohols-mineral 1 applic topical BID 02/29/24 02/29/24 oil-w.petrolatum-ceresin topical cream (Minerin Creme topical) sennosides 8.6 mg-docusate sodium 2 tab PO QPM 02/29/24 02/29/24 50 mg tablet (Stimulant Laxative Plus) sodium chloride 0.65 % nasal spray 1 spray intranasal Q4H PRN Dry 02/29/24 02/29/24 aerosol (Saline Nasal) Nasal Passages tamsulosin 0.4 mg capsule 0.4 mg PO HS 02/29/24 02/29/24 Previous Rx's Medication Instructions Recorded amlodipine 5 mg tablet (Norvasc) 5 mg PO QAM #30 tabs 12/11/23 carvedilol 6.25 mg tablet 6.25 mg PO BIDM #60 tabs 12/11/23 fluticasone propionate 50 2 spray NA QAM #1 g 12/11/23 mcg/actuation nasal spray,suspension melatonin 3 mg capsule 3 mg PO HS #30 caps 12/11/23 pantoprazole 40 mg tablet,delayed 40 mg PO QAM #30 tabs 12/11/23 release Results & Data (ED) Vital Signs Vital Signs - 24 hr 02/29/24 15:35 02/29/24 15:59 02/29/24 17:00 Pulse Rate 57 L Pulse Rate [Apical] 56 L 58 L Respiratory Rate 17 18 Blood Pressure [Right Arm] 125/84 188/62 H Blood Pressure Mean [Right Arm] 97 104 Blood Pressure Position [Right Arm] Semi-fowlers Pulse Oximetry 99 96 Oxygen Delivery Method Room Air 02/29/24 19:00 02/29/24 19:50 Pulse Rate 55 L Pulse Rate [Apical] 66 Respiratory Rate 18 Blood Pressure [Right Arm] 156/65 H Blood Pressure Mean [Right Arm] 95 Blood Pressure Position [Right Arm] Pulse Oximetry 99 Oxygen Delivery Method Room Air Laboratory Data 03/01/24 04:10 03/01/24 04:10 Lab Results 02/29/24 02/29/24 Range/Units 15:55 17:00 WBC 7.40 (4.8-10.8) K/ul RBC 3.92 L (4.70-6.10) M/uL Hgb 12.4 L (14.0-18.0) g/dl Hct 36.9 L (42.0-52.0) % MCV 94.1 (80.0-100.0) fL MCH 31.6 (25.0-34.0) pg MCHC 33.6 (32.0-36.0) g/dL RDW Std Deviation 52.7 H (36.4-46.3) fL RDW Coeff of Randall 15.6 H (11.5-14.5) % Plt Count 227 (130-400) K/uL MPV 10.0 (9.4-12.4) fL Immature Gran % (Auto) 0.4 % Neut % (Auto) 66.4 % Lymph % (Auto) 10.4 % [place] % (Auto) 11.2 % Eos % (Auto) 10.9 % Baso % (Auto) 0.7 % Neut # (Auto) 4.91 (1.40-6.50) K/uL Lymph # (Auto) 0.77 L (1.20-3.40) K/uL [place] # (Auto) 0.83 H (0.11-0.59) K/uL Eos # (Auto) 0.81 H (0.00-0.50) K/uL Baso # (Auto) 0.05 (0.00-0.20) K/uL Immature Gran # (Auto) 0.03 (0.01-0.20) K/uL PT 11.7 (9.0-12.0) Seconds INR 1.1 (0.9-1.1) Sodium 139 (136-145) mmol/L Potassium 4.1 (3.5-5.1) mmol/L Chloride 104 (98-107) mmol/L Carbon Dioxide 31 (21-32) mmol/L Anion Gap 4 (3-11) BUN 19 (6-23) mg/dl Creatinine 0.91 (0.6-1.4) mg/dl Est Cr Clr Drug Dosing 56.7 ml/min eGFR 81.07 BUN/Creatinine Ratio 20.9 H (10-20) Glucose 97 (70-99(Fasting)) mg/dl Calcium 8.8 (8.6-10.3) mg/dl Magnesium 1.7 (1.7-2.4) mg/dl Total Bilirubin 0.5 (0.2-1.0) mg/dl AST 15 (13-39) U/L ALT 10 (7-52) U/L Alkaline Phosphatase 68 (34-104) U/L Troponin I High Sens 4.8 (0-20) pg/ml B-Natriuretic Peptide 50 (0-100) pg/ml Total Protein 6.8 (6.0-8.3) gm/dl Albumin 3.8 (3.4-5.0) gm/dl Globulin 3.0 (2.5-4.0) gm/dl Albumin/Globulin Ratio 1.3 (0.9-2) Lipase 18 (11-82) U/L TSH 3.777 (0.300-4.500) uIu/ml Urine Color Yellow Urine Appearance Clear (Clear) Urine pH 6.5 (4.5-7.5) Ur Specific Melbeta 1.013 (1.000-1.030) Urine Protein Negative (Negative) Urine Glucose (UA) Negative (Negative) Urine Ketones Negative (Negative) Urine Blood Negative (Negative) Urine Nitrite Negative (Negative) Urine Bilirubin Negative (Negative) Urine Urobilinogen Negative (Negative) Ur Leukocyte Esterase 1+ H (Negative) Urine WBC (Auto) 0-5 (0-5) /hpf Urine RBC (Auto) 0-2 (0-2) /hpf U Hyaline Cast (Auto) 0-2 (0-2) /lpf U Epithel Cells (Auto) 0-2 (0-2) /hpf Urine Bacteria (Auto) None Seen (None Seen) Adenovirus (PCR) Not Detected (NotDetected) B. pertussis DNA (PCR) Not Detected (NotDetected) B.parapertussis DNA PCR Not Detected (NotDetected) C. pneumoniae DNA (PCR) Not Detected (NotDetected) Coronavirus OC43 (PCR) Not Detected (NotDetected) Coronavirus HKU1 (PCR) Not Detected (NotDetected) Coronavirus 229E (PCR) Not Detected (NotDetected) SARS-CoV-2 (PCR) DETECTED A (NotDetected) Coronavirus NL63 (PCR) Not Detected (NotDetected) Human Metapneumovir PCR Not Detected (NotDetected) Influenza Type A (PCR) Not Detected (NotDetected) Influenza Type B (PCR) Not Detected (NotDetected) M. pneumoniae (PCR) Not Detected (NotDetected) Parainfluenza 1 (PCR) Not Detected (NotDetected) Parainfluenza 2 (PCR) Not Detected (NotDetected) Parainfluenza 3 (PCR) Not Detected (NotDetected) Parainfluenza 4 (PCR) Not Detected (NotDetected) RSV (PCR) Not Detected (NotDetected) Entero/Rhino (PCR) Not Detected (NotDetected) Administered Medications Amlodipine Besylate (Amlodipine Besylate 5 Mg Tab) [facility] [place] Stop: 03/31/24 08:59 Last Admin: 03/01/24 08:46 Dose: 5 mg Documented By: MMG Azithromycin (Azithromycin 250 Mg Tab) 500 mg [facility] [place] Stop: 03/11/24 08:59 Last Admin: 03/01/24 08:47 Dose: 500 mg Documented By: EMILIANO Carvedilol (Carvedilol 6.25 Mg Tab) 6.25 mg PO BIDM [facility] Stop: 03/31/24 07:59 Last Admin: 03/01/24 08:47 Dose: Not Given Documented By: EMILIANO Enoxaparin Sodium (Enoxaparin Inj 40 Mg/0.4 Ml Syr) 40 mg SQ Q24H [facility] Stop: 03/31/24 07:59 Last Admin: 03/01/24 08:43 Dose: Not Given Documented By: EMILIANO Escitalopram Oxalate (Escitalopram Oxalate 10 Mg Tab) 5 mg PO QAM [facility] Stop: 03/31/24 08:59 Last Admin: 03/01/24 08:47 Dose: 5 mg Documented By: EMILIANO Ferrous Sulfate (Ferrous Sulfate 325 Mg Tab) 325 mg PO DAILY [facility] Stop: 03/31/24 08:59 Last Admin: 03/01/24 08:48 Dose: 325 mg Documented By: EMILIANO Fluticasone Propionate (Fluticasone Propionate Na Spr 16 Gm Btl) 2 sprays NA [facility] [place] Stop: 03/31/24 08:59 Last Admin: 03/01/24 08:45 Dose: 2 sprays Documented By: EMILIANO Folic Acid (Folic Acid 1 Mg Tab) 1 mg PO QAM [facility] Stop: 03/31/24 08:59 Last Admin: 03/01/24 08:48 Dose: 1 mg Documented By: EMILIANO Gabapentin (Gabapentin 300 Mg Cap) 300 mg PO HS [facility] Stop: 03/30/24 22:13 Last Admin: 02/29/24 23:17 Dose: Not Given Documented By: SHIRLEY Guaifenesin (Guaifenesin 600 Mg Tabcr) 600 mg PO BID [facility] Stop: 03/30/24 22:13 Last Admin: 03/01/24 08:45 Dose: 600 mg Documented By: Admin: 02/29/24 23:43 Dose: Not Given Documented By: SHIRLEY Multi-Ingredient Cream (Eucerin Cr 120 Gm Jar) 1 appln TOP BID [facility]ONID[facility] Stop: 03/30/24 22:13 Last Admin: 03/01/24 08:49 Dose: 1 appln Documented By: Admin: 02/29/24 23:43 Dose: Not Given Documented By: SHIRLEY Pantoprazole Sodium (Pantoprazole 40 Mg Tab) 40 mg PO QAM [facility] Stop: 03/31/24 08:59 Last Admin: 03/01/24 08:48 Dose: 40 mg Documented By: EMILIANO Senna/Docusate Sodium (Docusate Sodium/Senna 50/8.6mg Tab) 2 tab PO QPM [facility] Stop: 03/30/24 22:13 Last Admin: 02/29/24 23:17 Dose: Not Given Documented By: SHIRLEY Tamsulosin HCl (Tamsulosin Hcl 0.4 Mg Cap) 0.4 mg PO [facility] Stop: 03/30/24 22:13 Last Admin: 02/29/24 23:18 Dose: Not Given Documented By: SHIRLEY Thiamine HCl (Thiamine Hcl 100 Mg Tab) 100 mg PO QAM [facility] Stop: 03/31/24 08:59 Last Admin: 03/01/24 08:47 Dose: 100 mg Documented By: MMG Discontinued Medications Diphenhydramine HCl (Diphenhydramine 50 Mg/Ml Vial) 12.5 mg IV NOW STA Stop: 02/29/24 18:37 Last Admin: 02/29/24 18:44 Dose: 12.5 mg Documented By: SHIRLEY Magnesium Sulfate/Dextrose (Magnesium Sulfate / D5w) 1 gm in 100 mls @ 50 mls/hr IV ONE ONE Stop: 02/29/24 21:47 Last Infusion: 03/01/24 00:07 Dose: Infused Documented By: TJWally Admin: 02/29/24 22:04 Dose: 50 mls/hr Documented By: SHIRLEY Lorazepam (Lorazepam 0.5 Mg Tab) 0.5 mg PO NOW STA Stop: 02/29/24 22:14 Last Admin: 02/29/24 22:55 Dose: 0.5 mg Documented By: SHIRLEY Melatonin (Melatonin 3 Mg Tab) 3 mg PO HS ONE Stop: 02/29/24 22:01 Last Admin: 02/29/24 22:55 Dose: 3 mg Documented By: SHIRLEY Melatonin (Melatonin 3 Mg Tab) Confirm Administered Dose 3 mg PO .STK-MED ONE Stop: 02/29/24 22:03 Last Admin: 02/29/24 22:56 Dose: Not Given Documented By: SHIRLEY Imaging Data Radiologist's Impression: Chest X-Ray 02/29/24 15:46 Chest radiograph, one view History: Weakness Comparison: 11/22/2023 Findings: Single AP view of the chest performed. No focal consolidation or pleural effusion. No pneumothorax. The cardiomediastinal silhouette is within normal limits. Normal pulmonary vascularity. No evidence for lymphadenopathy. No visualized bony or soft tissue abnormality. Impression: Normal chest radiograph Electronically signed by Tim Navas 02-29-2024 4:[address] 02/29/24 15:47 CT head without contrast History: Dizziness Comparison: 11/22/2023 Technique: Using multidetector thin collimation helical acquisition technique, axial, coronal and sagittal CT images from the skull base to the vertex were obtained without intravenous contrast. Dose reduction techniques were achieved by using automatic exposure control and/or adjustment of mA and/or kV according to patient size and/or use of iterative reconstruction technique. Findings: No intracranial hemorrhage, mass-effect, or midline shift. The ventricles are proportionate to the cerebral sulci. The benedict to white matter differentiation of the cerebral hemispheres is preserved. The basal cisterns are patent. Heavy cerebral vascular calcifications. There is marked generalized cerebral atrophy. Significant mucoid opacification partially seen in the maxillary sinuses, and is also moderate throughout the ethmoid air cells. Mastoid air cells are clear. Impression: No acute intracranial pathology. Electronically signed by Tim Navas 02-29-2024 4:22 PM Discharge Plan Visit Data Chief Complaint: Swelling/Edema to Extremity Stated Complaint: BED SORES, SWELLING TO LEGS AND FEET ED Provider: Ann Bean Discharge Problem: Bilateral edema of lower extremity, Dizziness, Decubitus ulcer of sacral area Patient Disposition: Admitted As Inpatient Discharge Instructions Interventions: ED Discharge Assessment Last Done: 02/29/24 22:15
--- NOTE | 2024-02-29 16:22 | CT Scan Report ---
CT head without contrast History: Dizziness Comparison: 11/22/2023 Technique: Using multidetector thin collimation helical acquisition technique, axial, coronal and sagittal CT images from the skull base to the vertex were obtained without intravenous contrast. Dose reduction techniques were achieved by using automatic exposure control and/or adjustment of mA and/or kV according to patient size and/or use of iterative reconstruction technique. Findings: No intracranial hemorrhage, mass-effect, or midline shift. The ventricles are proportionate to the cerebral sulci. The benedict to white matter differentiation of the cerebral hemispheres is preserved. The basal cisterns are patent. Heavy cerebral vascular calcifications. There is marked generalized cerebral atrophy. Significant mucoid opacification partially seen in the maxillary sinuses, and is also moderate throughout the ethmoid air cells. Mastoid air cells are clear. Impression: No acute intracranial pathology. Electronically signed by Tim Navas 02-29-2024 4:22 PM
[2024-02-29 16:29] LABS: Basophils # (auto) 0.05 K/uL (0.00-0.20); Basophils % (auto) 0.7 %; Eosinophils # (auto) 0.81 K/uL (0.00-0.50); Eosinophils % (auto) 10.9 %; Hematocrit (blood only) 36.9 % (42.0-52.0); Hemoglobin 12.4 g/dl (14.0-18.0); Immature Granulocytes # (auto) 0.03 K/uL (0.01-0.20); Immature Granulocytes % (auto) 0.4 %; Lymphocytes # (auto) 0.77 K/uL (1.20-3.40); Lymphocytes % (auto) 10.4 %; Mean Corpuscular Hemoglobin 31.6 pg (25.0-34.0); Mean Corpuscular Hgb Conc 33.6 g/dL (32.0-36.0); Mean Corpuscular Volume 94.1 fL (80.0-100.0); Monocytes # (auto) 0.83 K/uL (0.11-0.59); Monocytes % (auto) 11.2 %; Neutrophils # (auto) 4.91 K/uL (1.40-6.50); Neutrophils % (auto) 66.4 %; Platelet Count 227 K/uL (130-400); RDW Coefficient of Variation 15.6 % (11.5-14.5); RDW Standard Deviation 52.7 fL (36.4-46.3); Red Blood Count 3.92 M/uL (4.70-6.10)
--- NOTE | 2024-02-29 16:29 | XRay Report ---
Chest radiograph, one view History: Weakness Comparison: 11/22/2023 Findings: Single AP view of the chest performed. No focal consolidation or pleural effusion. No pneumothorax. The cardiomediastinal silhouette is within normal limits. Normal pulmonary vascularity. No evidence for lymphadenopathy. No visualized bony or soft tissue abnormality. Impression: Normal chest radiograph Electronically signed by Tim Navas 02-29-2024 4:28 PM
[2024-02-29 16:41] LABS: Albumin Globulin Ratio 1.3 (0.9-2); Albumin Level 3.8 gm/dl (3.4-5.0); BUN Creatinine Ratio 20.9 (10-20); Bilirubin,Total 0.5 mg/dl (0.2-1.0); Calcium 8.8 mg/dl (8.6-10.3); Creatinine Clr Calc Pharmacy 56.7 ml/min; Magnesium 1.7 mg/dl (1.7-2.4); Potassium 4.1 mmol/L (3.5-5.1); Total Protein 6.8 gm/dl (6.0-8.3)
[2024-02-29 16:46] LABS: Troponin I High Sensitivity 4.8 pg/ml (0-20)
[2024-02-29 16:55] LABS: Thyroid Stimulating Hormone 3.777 uIu/ml (0.300-4.500)
[2024-02-29 16:59] LABS: INR 1.1 (0.9-1.1); Prothrombin Time 11.7 Seconds (9.0-12.0)
[2024-02-29 17:15] LABS: Adenovirus PCR Not Detected (NotDetected); Bordetella parapertussis PCR Not Detected (NotDetected); Bordetella pertussis PCR Not Detected (NotDetected); Chlamydia pneumoniae PCR Not Detected (NotDetected); Coronavirus 229E PCR Not Detected (NotDetected); Coronavirus CoV-2 (COVID19)PCR DETECTED (NotDetected); Coronavirus HKU1 PCR Not Detected (NotDetected); Coronavirus NL63 PCR Not Detected (NotDetected); Coronavirus OC43PCR Not Detected (NotDetected); Human Metapneumovirus PCR Not Detected (NotDetected); Influenza A PCR Not Detected (NotDetected); Influenza B PCR Not Detected (NotDetected); Mycoplasma pneumoniae PCR Not Detected (NotDetected); Parainfluenza Virus 1 PCR Not Detected (NotDetected); Parainfluenza Virus 2 PCR Not Detected (NotDetected); Parainfluenza Virus 3 PCR Not Detected (NotDetected); Parainfluenza Virus 4 PCR Not Detected (NotDetected); Respiratory Syncytial VirusPCR Not Detected (NotDetected); Rhinovirus/Enterovirus PCR Not Detected (NotDetected)
[2024-02-29 17:24] LABS: Appearance Urine Clear (Clear); Bacteria Urine Automated None Seen (None Seen); Bilirubin Urine Negative (Negative); Blood Urine Negative (Negative); Cast Urine Automated 0-2 /lpf (0-2); Color Urine Yellow; Epithelial Cell Urine Auto 0-2 /hpf (0-2); Glucose Urine UA Negative (Negative); Ketones Urine Negative (Negative); Leukocyte Esterase Urine 1+ (Negative); Nitrite Urine Negative (Negative); Protein Urine Negative (Negative); RBC Urine Automated 0-2 /hpf (0-2); Specific Gravity Urine 1.013 (1.000-1.030); Urobilinogen Urine Negative (Negative); WBC Urine Automated 0-5 /hpf (0-5); pH Urine 6.5 (4.5-7.5)
[2024-02-29] MEDS: diphenhydrAMINE 50 MG/ML VIAL IV STA (18:44)
--- NOTE | 2024-02-29 20:16 | History & Physical Report ---
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 Patient was most recently admitted to [facility] from 11/21-12/11/2023 for 4 acute metabolic encephalopathy secondary to likely aspiration pneumonia. He has been treated for 7-day course of IV Zosyn and vancomycin at that time after a positive MRSA screen. He was then transferred to [facility] for short-term rehab. He now is ready to go home with home services, and was brought into the emergency department by a local agency to try to coordinate and expedite transfer to home. The patient presently has no overall complaints, other than chronic lower extremity swelling, and occasional dizziness. #Dizziness- Likely secondary to maxillary/ethmoidal sinusitis and mild general debilitation Placed on azithromycin 500 mg p.o. 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 every morning and folic acid 1 mg p.o. every morning Hypomagnesemia- Magnesium 1.7 on admission Give magnesium sulfate 1 g IV #Skin Care- consult wound care History of Present Illness Chief Complaint: The patient was brought to the emergency department via private vehicle, after being noted by a staff member to be more sedentary, sitting in chair, and noted to have worsening issues with dizziness and lower extremity edema. Primary Care Provider: Nicolas Foreman MD The patient is a 88-year-old male with a past medical history including bilateral lower extremity edema, history of acute encephalopathy, paroxysmal atrial fibrillation, history of alcohol dependence, history of atrial fibrillation, hypothyroidism, vertebral artery stenosis,-year-old bowel syndrome, macular degeneration, and a left carotid artery stenosis. Patient was most recently admitted to [facility] from 11/21-12/11/2023 for 4 acute metabolic encephalopathy secondary to likely aspiration pneumonia. He has been treated for 7-day course of IV Zosyn and vancomycin at that time after a positive MRSA screen. He was then transferred to [facility] for short-term rehab. He now is ready to go home with home services, and was brought into the emergency department by a local agency to try to coordinate and expedite transfer to home. The patient presently has no overall complaints, other than chronic lower extremity swelling, and occasional dizziness. Allergies Allergy/AdvReac Type Severity Reaction Status Date / Time No Known Allergies Allergy Verified 02/29/24 18:14 Home Medications Medication Instructions Recorded Confirmed Type amlodipine 5 mg tablet (Norvasc) 5 mg PO QAM #30 tabs 12/11/23 02/29/24 Rx carvedilol 6.25 mg tablet 6.25 mg PO BIDM #60 tabs 12/11/23 02/29/24 Rx fluticasone propionate 50 2 spray NA QAM #1 g 12/11/23 02/29/24 Rx mcg/actuation nasal spray,suspension melatonin 3 mg capsule 3 mg PO HS #30 caps 12/11/23 02/29/24 Rx pantoprazole 40 mg tablet,delayed 40 mg PO QAM #30 tabs 12/11/23 02/29/24 Rx release acetaminophen 325 mg tablet 650 mg PO .Q4H PRN Fever Or Pain 02/29/24 02/29/24 History acetaminophen 325 mg tablet 650 mg PO BID 02/29/24 02/29/24 History benzonatate 100 mg capsule 100 mg PO Q8H PRN Cough 02/29/24 02/29/24 History bisacodyl 10 mg rectal suppository 10 mg MS DAILY PRN Constipation 02/29/24 02/29/24 History carboxymethylcellulose sodium 1 % 2 drp OPB Q4H PRN Dry Eye(S) 02/29/24 02/29/24 History eye drops (Artificial Tears (carboxymethylcellulose)) escitalopram oxalate 5 mg tablet 5 mg PO QAM 02/29/24 02/29/24 History (Lexapro) ferrous sulfate 325 mg (65 mg 35 mg PO DAILY 02/29/24 02/29/24 History iron) tablet,delayed release gabapentin 300 mg capsule 300 mg PO HS 02/29/24 02/29/24 History guaifenesin 600 mg tablet, 600 mg PO .AM&HS 02/29/24 02/29/24 History extended release 12 hr (Mucinex) ipratropium 0.5 mg-albuterol 3 mg 3 ml inhalation Q4H PRN Shortness 02/29/24 02/29/24 History (2.5 mg base)/3 mL nebulization Of Breath Or Wheezing soln lanolin alcohols-mineral 1 applic topical BID 02/29/24 02/29/24 History oil-w.petrolatum-ceresin topical cream (Minerin Creme topical) sennosides 8.6 mg-docusate sodium 2 tab PO QPM 02/29/24 02/29/24 History 50 mg tablet (Stimulant Laxative Plus) sodium chloride 0.65 % nasal spray 1 spray intranasal Q4H PRN Dry 02/29/24 02/29/24 History aerosol (Saline Nasal) Nasal Passages tamsulosin 0.4 mg capsule 0.4 mg PO HS 02/29/24 02/29/24 History Past Med/Surg History Problem List (Updated 02/29/24 @ 20:07 by Prasad Carrington MD) Superficial injury of skin of sacral region 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 Sinusitis chronic, ethmoidal Sinusitis, maxillary, chronic Dizziness (Acute) Bilateral edema of lower extremity (Acute) Paraphimosis Penile swelling Anemia Neck pain Acute encephalopathy Acute confusion (Acute) Garbled speech (Acute) Elevated lactic acid level (Acute) Elevated troponin (Acute) Altered mental status (Acute) Murmur, cardiac Paroxysmal A-fib H/O alcohol dependence Afib H/O: GI bleed Carotid stenosis NSTEMI (non-ST elevated myocardial infarction) Sepsis Hypertension Metabolic encephalopathy Acute kidney injury Acute hyponatremia (Acute) Dark stools (Acute) Weakness (Acute) Dark stools Hyponatremia Low vitamin B12 level Anemia Hypothyroidism GI bleed Hypomagnesemia (Acute) Falls Vertebral artery stenosis Hypokalemia Bradycardia Contusion of multiple sites (Acute) Hyperbilirubinemia (Acute) Hepatic steatosis Arthritis (Acute) Irritable bowel syndrome (Acute) Macular degeneration (Acute) Mitral regurgitation (Acute) Stenosis of left carotid artery greater than 50% (Acute) Medical History Symptomatic anemia Influenza A Tinea unguium Cellulitis of leg, right Gastric ulcer GI bleed History of CVA (cerebrovascular accident) Elevated CK Hyperglycemia Insomnia Hypothyroidism Anxiety Alcohol abuse Hypertensive urgency Surgical History History of colonoscopy History of tonsillectomy History of cataract surgery Family History Mother , age 90 of uncertain causes. 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 Beliefs That Will Affect Care: None marital status: Current Living Situation: Alone Current Living Situation Comment: Lives alone with spouse who is WCB current occupational status: retired 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 Feels Safe at Home: Yes Childhood Exposure to Second-Hand Smoke: Yes Diet: regular Dental Care, Regularly: No Physical Activity Frequency: Does not Exercise Seatbelt Use: always Sunscreen Use: No Assistive Devices: Glasses Review of Systems Review of Systems: The patient denies chest pain, palpitations, change in chronic dyspnea on exertion, cough, change in lower extremity swelling, sore throat, fevers, chills, sweats, weight change, fatigue, nausea, vomiting, diarrhea , constipation, abdominal pain, pelvic pain, blood in urine or stool, dysuria, urinary frequency or urgency, lightheadedness, dizziness, headache, memory loss, loss of consciousness, rash, abnormal bruising or bleeding, Change in imbalance, focal or generalized weakness, numbness or tingling in arms or legs, generalized arthralgias or myalgias, back or neck pain, or night sweats. The review of systems is otherwise negative other than for that already noted above, and at least 10 systems have been reviewed. Physical Exam Physical Exam: The patient is awake, alert and oriented 3, well developed and well nourished, normocephalic and atraumatic, lying in bed and in no acute distress. HEENT--PERRL, EOMI, mucous membranes and oropharynx normal Neck--supple. No JVD. No bruits. Thyroid normal, trachea midline, no adenopathy. Heart--normal S1 and S2. No murmurs, rubs or gallops. Lungs--clear bilaterally, no respiratory distress, no accessory muscle use. Abdomen--normal bowel sounds and soft. Nontender. Nondistended, no hernias or masses, no organomegaly. Extremities--no cyanosis or clubbing. No edema. Dermatologic--chronic lower extremity lymphedema changes bilaterally. Noted early sacral irritation per nursing records Neurologic--cranial nerves II through XII grossly intact. Rheumatologic--normal range of motion. Psychiatric--normal affect. Results & Data Results & Data Vital Signs (Past 12 Hours) Vital Signs Temp Pulse Pulse Resp BP BP Pulse Ox 02/29/24 19:50 55 L 02/29/24 19:00 66 18 156/65 H 99 02/29/24 17:00 58 L 18 188/62 H 96 02/29/24 15:59 57 L 02/29/24 15:35 56 L 17 125/84 99 02/29/24 15:22 36.5 C 60 26 H 135/64 97 O2 Del Method 02/29/24 19:50 02/29/24 19:00 Room Air 02/29/24 17:00 02/29/24 15:59 02/29/24 15:35 Room Air 02/29/24 15:22 Room Air Laboratory Results Laboratory Results WBC 7.40 K/ul (4.8-10.8) 02/29/24 15:55 RBC 3.92 M/uL (4.70-6.10) L 02/29/24 15:55 Hgb 12.4 g/dl (14.0-18.0) L 02/29/24 15:55 Hct 36.9 % (42.0-52.0) L 02/29/24 15:55 MCV 94.1 fL (80.0-100.0) 02/29/24 15:55 MCH 31.6 pg (25.0-34.0) 02/29/24 15:55 MCHC 33.6 g/dL (32.0-36.0) 02/29/24 15:55 RDW Std Deviation 52.7 fL (36.4-46.3) H 02/29/24 15:55 RDW Coeff of Randall 15.6 % (11.5-14.5) H 02/29/24 15:55 Plt Count 227 K/uL (130-400) 02/29/24 15:55 MPV 10.0 fL (9.4-12.4) 02/29/24 15:55 Immature Gran % (Auto) 0.4 % 02/29/24 15:55 Neut % (Auto) 66.4 % 02/29/24 15:55 Lymph % (Auto) 10.4 % 02/29/24 15:55 [place] % (Auto) 11.2 % 02/29/24 15:55 Eos % (Auto) 10.9 % 02/29/24 15:55 Baso % (Auto) 0.7 % 02/29/24 15:55 Neut # (Auto) 4.91 K/uL (1.40-6.50) 02/29/24 15:55 Lymph # (Auto) 0.77 K/uL (1.20-3.40) L 02/29/24 15:55 [place] # (Auto) 0.83 K/uL (0.11-0.59) H 02/29/24 15:55 Eos # (Auto) 0.81 K/uL (0.00-0.50) H 02/29/24 15:55 Baso # (Auto) 0.05 K/uL (0.00-0.20) 02/29/24 15:55 Immature Gran # (Auto) 0.03 K/uL (0.01-0.20) 02/29/24 15:55 PT 11.7 Seconds (9.0-12.0) 02/29/24 15:55 INR 1.1 (0.9-1.1) 02/29/24 15:55 Sodium 139 mmol/L (136-145) 02/29/24 15:55 Potassium 4.1 mmol/L (3.5-5.1) 02/29/24 15:55 Chloride 104 mmol/L (98-107) 02/29/24 15:55 Carbon Dioxide 31 mmol/L (21-32) 02/29/24 15:55 Anion Gap 4 (3-11) 02/29/24 15:55 BUN 19 mg/dl (6-23) 02/29/24 15:55 Creatinine 0.91 mg/dl (0.6-1.4) 02/29/24 15:55 Est Cr Clr Drug Dosing 56.7 ml/min 02/29/24 15:55 eGFR 81.07 02/29/24 15:55 BUN/Creatinine Ratio 20.9 (10-20) H 02/29/24 15:55 Glucose 97 mg/dl (70-99(Fasting)) 02/29/24 15:55 Calcium 8.8 mg/dl (8.6-10.3) 02/29/24 15:55 Magnesium 1.7 mg/dl (1.7-2.4) 02/29/24 15:55 Total Bilirubin 0.5 mg/dl (0.2-1.0) 02/29/24 15:55 AST 15 U/L (13-39) 02/29/24 15:55 ALT 10 U/L (7-52) 02/29/24 15:55 Alkaline Phosphatase 68 U/L (34-104) 02/29/24 15:55 Troponin I High Sens 4.8 pg/ml (0-20) 02/29/24 15:55 B-Natriuretic Peptide 50 pg/ml (0-100) 02/29/24 15:55 Total Protein 6.8 gm/dl (6.0-8.3) 02/29/24 15:55 Albumin 3.8 gm/dl (3.4-5.0) 02/29/24 15:55 Globulin 3.0 gm/dl (2.5-4.0) 02/29/24 15:55 Albumin/Globulin Ratio 1.3 (0.9-2) 02/29/24 15:55 Lipase 18 U/L (11-82) 02/29/24 15:55 TSH 3.777 uIu/ml (0.300-4.500) 02/29/24 15:55 Urine Color Yellow 02/29/24 17:00 Urine Appearance Clear (Clear) 02/29/24 17:00 Urine pH 6.5 (4.5-7.5) 02/29/24 17:00 Ur Specific [place] 1.013 (1.000-1.030) 02/29/24 17:00 Urine Protein Negative (Negative) 02/29/24 17:00 Urine Glucose (UA) Negative (Negative) 02/29/24 17:00 Urine Ketones Negative (Negative) 02/29/24 17:00 Urine Blood Negative (Negative) 02/29/24 17:00 Urine Nitrite Negative (Negative) 02/29/24 17:00 Urine Bilirubin Negative (Negative) 02/29/24 17:00 Urine Urobilinogen Negative (Negative) 02/29/24 17:00 Ur Leukocyte Esterase 1+ (Negative) H 02/29/24 17:00 Urine WBC (Auto) 0-5 /hpf (0-5) 02/29/24 17:00 Urine RBC (Auto) 0-2 /hpf (0-2) 02/29/24 17:00 U Hyaline Cast (Auto) 0-2 /lpf (0-2) 02/29/24 17:00 U Epithel Cells (Auto) 0-2 /hpf (0-2) 02/29/24 17:00 Urine Bacteria (Auto) None Seen (None Seen) 02/29/24 17:00 Adenovirus (PCR) Not Detected (NotDetected) 02/29/24 15:55 B. pertussis DNA (PCR) Not Detected (NotDetected) 02/29/24 15:55 B.parapertussis DNA PCR Not Detected (NotDetected) 02/29/24 15:55 C. pneumoniae DNA (PCR) Not Detected (NotDetected) 02/29/24 15:55 Coronavirus OC43 (PCR) Not Detected (NotDetected) 02/29/24 15:55 Coronavirus HKU1 (PCR) Not Detected (NotDetected) 02/29/24 15:55 Coronavirus 229E (PCR) Not Detected (NotDetected) 02/29/24 15:55 SARS-CoV-2 (PCR) DETECTED (NotDetected) A 02/29/24 15:55 Coronavirus NL63 (PCR) Not Detected (NotDetected) 02/29/24 15:55 Human Metapneumovir PCR Not Detected (NotDetected) 02/29/24 15:55 Influenza Type A (PCR) Not Detected (NotDetected) 02/29/24 15:55 Influenza Type B (PCR) Not Detected (NotDetected) 02/29/24 15:55 M. pneumoniae (PCR) Not Detected (NotDetected) 02/29/24 15:55 Parainfluenza 1 (PCR) Not Detected (NotDetected) 02/29/24 15:55 Parainfluenza 2 (PCR) Not Detected (NotDetected) 02/29/24 15:55 Parainfluenza 3 (PCR) Not Detected (NotDetected) 02/29/24 15:55 Parainfluenza 4 (PCR) Not Detected (NotDetected) 02/29/24 15:55 RSV (PCR) Not Detected (NotDetected) 02/29/24 15:55 Entero/Rhino (PCR) Not Detected (NotDetected) 02/29/24 15:55 Impressions Chest X-Ray 02/29/24 15:46 Chest radiograph, one view History: Weakness Comparison: 11/22/2023 Findings: Single AP view of the chest performed. No focal consolidation or pleural effusion. No pneumothorax. The cardiomediastinal silhouette is within normal limits. Normal pulmonary vascularity. No evidence for lymphadenopathy. No visualized bony or soft tissue abnormality. Impression: Normal chest radiograph Electronically signed by Tim Navas 02-29-2024 4:[address] 02/29/24 15:47 CT head without contrast History: Dizziness Comparison: 11/22/2023 Technique: Using multidetector thin collimation helical acquisition technique, axial, coronal and sagittal CT images from the skull base to the vertex were obtained without intravenous contrast. Dose reduction techniques were achieved by using automatic exposure control and/or adjustment of mA and/or kV according to patient size and/or use of iterative reconstruction technique. Findings: No intracranial hemorrhage, mass-effect, or midline shift. The ventricles are proportionate to the cerebral sulci. The benedict to white matter differentiation of the cerebral hemispheres is preserved. The basal cisterns are patent. Heavy cerebral vascular calcifications. There is marked generalized cerebral atrophy. Significant mucoid opacification partially seen in the maxillary sinuses, and is also moderate throughout the ethmoid air cells. Mastoid air cells are clear. Impression: No acute intracranial pathology. 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
[2024-02-29] MEDS: MAGNESIUM SULFATE / D5W 1 GM/100 ML BAG IV ONE (22:04)
[2024-02-29] MEDS ORDERED: BENZONATATE 100 MG CAPSULE PO PRN (22:14)
[2024-02-29] MEDS ORDERED: MAGNESIUM HYDROXIDE SUSP 30 ML UDC PO PRN (22:14)
[2024-02-29] MEDS ORDERED: bisacodyL 10 MG SUPP PR PRN (22:14)
[2024-02-29] MEDS ORDERED: ONDANSETRON INJ 2 MG/ML 2 ML VIAL IV PRN (22:14)
[2024-02-29] MEDS ORDERED: ALBUT/IPRATROP 3MG/0.5MG NEB 3 ML VIAL INH PRN (22:14)
[2024-02-29] MEDS ORDERED: ALUMINUM/MAGNESIUM SUSP 30 ML UDC PO PRN (22:14)
[2024-02-29] MEDS ORDERED: ACETAMINOPHEN 325 MG TAB PO PRN (22:14)
[2024-02-29] MEDS: MELATONIN 3 MG TAB PO ONE ×2 (22:55→22:56)
[2024-02-29] MEDS: LORazepam 0.5 MG TAB PO STA (22:55)
[2024-02-29] MEDS: GABAPENTIN 300 MG CAP PO SCH (23:17)
[2024-02-29] MEDS: DOCUSATE SODIUM/SENNA 50/8.6MG TAB PO SCH (23:17)
[2024-02-29] MEDS: TAMSULOSIN HCL 0.4 MG CAP PO SCH (23:18)
[2024-02-29] MEDS ORDERED: ARTIFICIAL TEARS OP PRN (23:21)
[2024-02-29] MEDS: EUCERIN CR 120 GM JAR TOP SCH (23:43)
[2024-02-29] MEDS: guaiFENesin 600 MG TABCR PO SCH (23:43)
[2024-03-01 04:26] LABS: Basophils # (auto) 0.08 K/uL (0.00-0.20); Basophils % (auto) 1.1 %; Eosinophils # (auto) 0.89 K/uL (0.00-0.50); Eosinophils % (auto) 12.1 %; Hematocrit (blood only) 37.3 % (42.0-52.0); Hemoglobin 12.6 g/dl (14.0-18.0); Immature Granulocytes # (auto) 0.03 K/uL (0.01-0.20); Immature Granulocytes % (auto) 0.4 %; Lymphocytes # (auto) 0.76 K/uL (1.20-3.40); Lymphocytes % (auto) 10.4 %; Mean Corpuscular Hemoglobin 31.5 pg (25.0-34.0); Mean Corpuscular Hgb Conc 33.8 g/dL (32.0-36.0); Mean Corpuscular Volume 93.3 fL (80.0-100.0); Mean Platelet Volume 9.8 fL (9.4-12.4); Monocytes # (auto) 0.89 K/uL (0.11-0.59); Monocytes % (auto) 12.1 %; Neutrophils # (auto) 4.68 K/uL (1.40-6.50); Neutrophils % (auto) 63.9 %; Platelet Count 204 K/uL (130-400); RDW Coefficient of Variation 15.6 % (11.5-14.5); RDW Standard Deviation 52.2 fL (36.4-46.3); White Blood Count 7.33 K/ul (4.8-10.8)
[2024-03-01 04:41] LABS: Albumin Level 3.8 gm/dl (3.4-5.0); BUN Creatinine Ratio 19.5 (10-20); Calcium 8.8 mg/dl (8.6-10.3); Creatinine Clr Calc Pharmacy 59.4 ml/min; Magnesium 1.9 mg/dl (1.7-2.4); Phosphorus 3.2 mg/dl (2.5-4.9); Potassium 3.9 mmol/L (3.5-5.1)
--- NOTE | 2024-03-01 07:21 | Hospitalist Progress Note ---
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 Patient was most recently admitted to [facility] from 11/21-12/11/2023 for 4 acute metabolic encephalopathy secondary to likely aspiration pneumonia. He has been treated for 7-day course of IV Zosyn and vancomycin at that time after a positive MRSA screen. He was then transferred to [facility] for short-term rehab. He now is ready to go home with home services, and was brought into the emergency department by a local agency to try to coordinate and expedite transfer to home. The patient presently has no overall complaints, other than chronic lower extremity swelling, and occasional dizziness. #Dizziness- Likely secondary to maxillary/ethmoidal sinusitis and mild general debilitation Placed on azithromycin 500 mg p.o. daily for 5 days this had improved #Paroxysmal atrial fibrillation/hypertension- Continue carvedilol, amlodipine No other anticoagulation likely secondary GI bleed 2021 #General deconditioning- Consult PT/OT Patient has been able [facility] and feels for for what was supposed to be short-term rehab pending placement #Chronic lymphedema bilateral lower extremities- As per the PT and OT, patient would likely benefit from lymphedema therapy to help prevent future issues with cellulitis and need for hospitalizations #COVID infection- Patient had symptoms several weeks ago COVID is still positive at this point He does not need active treatment If required, COVID precautions will be placed while in hospital #History of alcohol use disorder- No recent use Placed on thiamine 100 mg p.o. every morning and folic acid 1 mg p.o. every morning Hypomagnesemia- Magnesium 1.7 on admission Replaced #Skin Care- consult wound care Admission and Anticipated Discharge Date Admission Date: February 29, 2024 Supervising Physician Co-Signing Physician Notes Attending Physician Supervision Note: I independently interviewed and examined the patient and verified the calderón history and physical, reviewed labs and image studies and agree with findings and care plan noted above. Sitting in chair - slouched. Was feeling cold. Appropriately responsive. RRR, CTA Dizziness - likely from deconditioning. Vital stable. No concern of acute infection. Will d/c azithromycin. Deconditioning -secondary to recent COVID. Arranging rehab placement. Rest as above. Subjective seen this AM and again in the afternoon. Refers feeling well. He states that on [place] he was not being move from the chair, and no PT. Refers dizziness is improved. Edema had improved. Review of Systems Review of Systems: as per hpi Physical Exam Constitutional: WD/WN, vitals as above Eyes: PERRL, conjunctivae normal, anicteric sclerae Respiratory: normal respiratory effort, lungs clear to auscultation Cardiovascular: RRR, no murmur, no edema Gastrointestinal (Abdomen): normal bowel sounds, soft, nontender, no hepatosplenomegaly Skin: Chronic lower extremity lymphedema Results & Data Results & Data Vital Signs (Past 12 Hours) Vital Signs Temp Pulse Pulse Resp BP Pulse Ox O2 Del Method 02/29/24 22:17 36.5 C 63 21 160/67 H 96 Room Air 02/29/24 22:03 74 18 160/67 H 96 Room Air 02/29/24 19:50 55 L Resident Activity Tracking Resident Involvement: Resident Care Provided Care Provided: Adult Hospital Medicine
[2024-03-01] MEDS: ENOXAPARIN INJ 40 MG/0.4 ML SYR SQ SCH (08:43)
[2024-03-01] MEDS: FLUTICASONE PROPIONATE NA SPR 16 GM BTL SCH (08:45)
[2024-03-01] MEDS: amLODIPine BESYLATE 5 MG TAB PO SCH (08:46)
[2024-03-01] MEDS: ESCITALOPRAM OXALATE 10 MG TAB PO SCH (08:47)
[2024-03-01] MEDS: carvediloL 6.25 MG TAB PO SCH (08:47)
[2024-03-01] MEDS: THIAMINE HCL 100 MG TAB PO SCH (08:47)
[2024-03-01] MEDS: AZITHROMYCIN 250 MG TAB PO SCH (08:47)
[2024-03-01] MEDS: PANTOprazole 40 MG TAB PO SCH (08:48)
[2024-03-01] MEDS: FERROUS SULFATE 325 MG TAB PO SCH (08:48)
[2024-03-01] MEDS: FOLIC ACID 1 MG TAB PO SCH (08:48)
[2024-03-01] MEDS: MELATONIN 3 MG TAB PO SCH (22:00)
--- NOTE | 2024-03-02 05:51 | Electrocardiogram Report ---
Test Reason : Blood Pressure : */* mmHG Vent. Rate : 57 BPM Atrial Rate : 57 BPM P-R Int : 276 ms QRS Dur : 92 ms QT Int : 446 ms P-R-T Axes : 76 -19 112 degrees QTcB Int : 434 ms Sinus bradycardia with 1st degree A-V block with Premature atrial complexes Septal infarct (cited on or before 23-Nov-2023) Abnormal ECG When compared with ECG of 24-Nov-2023 09:47, Premature ventricular complexes are no longer Present Premature atrial complexes are now Present Vent. rate has decreased by 34 bpm Questionable change in QRS axis Nonspecific T wave abnormality no longer evident in Inferior leads Confirmed by Nolan La ([id number]) on 03/02/2024 5:50:58 AM Referred By: Confirmed By: Nolan La
[2024-03-02 06:51] LABS: Basophils # (auto) 0.09 K/uL (0.00-0.20); Basophils % (auto) 1.4 %; Eosinophils # (auto) 0.95 K/uL (0.00-0.50); Eosinophils % (auto) 14.5 %; Hematocrit (blood only) 36.2 % (42.0-52.0); Hemoglobin 12.4 g/dl (14.0-18.0); Immature Granulocytes # (auto) 0.03 K/uL (0.01-0.20); Immature Granulocytes % (auto) 0.5 %; Lymphocytes # (auto) 0.78 K/uL (1.20-3.40); Lymphocytes % (auto) 11.9 %; Mean Corpuscular Hgb Conc 34.3 g/dL (32.0-36.0); Mean Corpuscular Volume 93.3 fL (80.0-100.0); Mean Platelet Volume 9.9 fL (9.4-12.4); Monocytes # (auto) 0.78 K/uL (0.11-0.59); Monocytes % (auto) 11.9 %; Neutrophils # (auto) 3.91 K/uL (1.40-6.50); Neutrophils % (auto) 59.8 %; Platelet Count 205 K/uL (130-400); RDW Coefficient of Variation 15.9 % (11.5-14.5); RDW Standard Deviation 52.7 fL (36.4-46.3); Red Blood Count 3.88 M/uL (4.70-6.10); White Blood Count 6.54 K/ul (4.8-10.8)
[2024-03-02 07:10] LABS: Albumin Level 3.9 gm/dl (3.4-5.0); Calcium 8.9 mg/dl (8.6-10.3); Magnesium 1.9 mg/dl (1.7-2.4); Potassium 3.7 mmol/L (3.5-5.1)
[2024-03-02 07:16] LABS: BUN Creatinine Ratio 19.6 (10-20); Creatinine Clr Calc Pharmacy 53.2 ml/min; Phosphorus 3.1 mg/dl (2.5-4.9)
--- NOTE | 2024-03-02 11:25 | Hospitalist Progress Note ---
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 Caregivers from [employer] can provided 16/09 care. #Chronic lymphedema bilateral lower extremities- As per the PT and OT, patient would likely benefit from lymphedema therapy to help prevent future issues with cellulitis and need for hospitalizations #COVID infection- Patient had symptoms several weeks ago COVID is still positive at this point He does not need active treatment No isolation needed #History of alcohol use disorder- No recent use Placed on thiamine 100 mg p.o. every morning and folic acid 1 mg p.o. every morning Hypomagnesemia- Magnesium 1.7 on admission Replaced #Skin Care- consult wound care FEN: [facility] Healthy Code status: DNR/DNI DVT ppx: Lovenox sq Dispo: med/surg Admission and Anticipated Discharge Date Admission Date: February 29, 2024 Supervising Physician Co-Signing Physician Notes Attending Physician Supervision Note: I independently interviewed and examined the patient and verified the calderón history and physical, reviewed labs and image studies and agree with findings a nd care plan noted above. Sitting up in bed. Eating lunch. Alert and oriented. No respiratory distress. Dizziness - likely from deconditioning. Vital stable. No concern of acute infection. d/trey azithromycin. Deconditioning -secondary to recent COVID. PT/OT eval done - recommending home with home health. Rest as above. Subjective Seen this AM, sales account representative at bedside. He feels fine, no acute concerns. He wishes to returned home but is ok with [facility]. Eating ok. Voiding without difficulty. Case managment following Denied any chest pain, SOB, palpitations, abdominal pain, nausea, vomiting, or diarrhea Review of Systems Review of Systems: as per hpi Physical Exam Constitutional: WD/WN, vitals as above Eyes: PERRL, conjunctivae normal, anicteric sclerae Neck: + torticollis Respiratory: normal respiratory effort, lungs clear to auscultation Cardiovascular: RRR, no murmur, no edema Gastrointestinal (Abdomen): normal bowel sounds, soft, nontender, no hepatosplenomegaly Results & Data Results & Data Vital Signs (Past 12 Hours) Vital Signs Temp Pulse Resp BP Pulse Ox O2 Del Method 03/02/24 08:44 63 132/57 L 03/02/24 07:30 Room Air 03/02/24 07:14 36.4 C L 62 16 99/56 L 94 Room Air Resident Activity Tracking Resident Involvement: Resident Care Provided Care Provided: Adult Hospital Medicine
--- NOTE | 2024-03-03 09:09 | Hospitalist Progress Note ---
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 Caregivers from [employer] can provided 16/09 care. #Chronic lymphedema bilateral lower extremities- As per the PT and OT, patient would likely benefit from lymphedema therapy to help prevent future issues with cellulitis and need for hospitalizations #COVID infection- Patient had symptoms several weeks ago COVID is still positive at this point He does not need active treatment No isolation needed #History of alcohol use disorder- No recent use Placed on thiamine 100 mg p.o. every morning and folic acid 1 mg p.o. every morning Hypomagnesemia- Magnesium 1.7 on admission Replaced #Skin Care- consult wound care FEN: [facility] Healthy Code status: DNR/DNI DVT ppx: Lovenox sq Dispo: med/surg Admission and Anticipated Discharge Date Admission Date: February 29, 2024 Supervising Physician Co-Signing Physician Notes Attending Physician Supervision Note: I independently interviewed and examined the patient and verified the calderón history and physical, reviewed labs and image studies and agree with findings a nd care plan noted above. Resting in chair. No concerns. Alert and oriented. No respiratory distress. Dizziness - likely from deconditioning. Vital stable. No concern of acute infection. d/trey azithromycin. Deconditioning -secondary to recent COVID. PT/OT eval done - recommending home with home health. Case mx following. Rest as above. Subjective Seen this AM, front end specialist at bedside. He feels fine, no acute concerns. Pending placement: plan to go home. Script given to CM Denied any chest pain, SOB, palpitations, abdominal pain, nausea, vomiting, or diarrhea Review of Systems Review of Systems: as per hpi Physical Exam Constitutional: WD/WN, vitals as above Eyes: PERRL, conjunctivae normal, anicteric sclerae Neck: + torticollis Respiratory: normal respiratory effort, lungs clear to auscultation Cardiovascular: RRR, no murmur, no edema Gastrointestinal (Abdomen): normal bowel sounds, soft, nontender, no hepatosplenomegaly Results & Data Results & Data Vital Signs (Past 12 Hours) Vital Signs Temp Pulse Pulse Resp BP Pulse Ox O2 Del Method 03/03/24 08:41 62 109/55 L 03/03/24 07:49 36.3 C L 60 16 115/66 96 Room Air Resident Activity Tracking Resident Involvement: Resident Care Provided Care Provided: Adult Hospital Medicine
--- NOTE | 2024-03-04 10:56 | Hospitalist Progress Note ---
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 Caregivers from [employer] can provided 16/09 care. #Chronic lymphedema bilateral lower extremities- As per the PT and OT, patient would likely benefit from lymphedema therapy to help prevent future issues with cellulitis and need for hospitalizations #COVID infection- Patient had symptoms several weeks ago COVID is still positive at this point He does not need active treatment No isolation needed #History of alcohol use disorder- No recent use Placed on thiamine 100 mg p.o. every morning and folic acid 1 mg p.o. every morning Hypomagnesemia- Magnesium 1.7 on admission Replaced #Skin Care- consult wound care FEN: [facility] Healthy Code status: DNR/DNI DVT ppx: Lovenox sq Dispo: med/surg Admission and Anticipated Discharge Date Admission Date: February 29, 2024 Supervising Physician Co-Signing Physician Notes Attending Physician Supervision Note: I independently interviewed and examined the patient and verified the calderón history and physical, reviewed labs and image studies and agree with findings a nd care plan noted above. Comfortable in bed. Able to recall event better today. No concerns. No respiratory distress. Dizziness - likely from deconditioning. Vital stable. No concern of acute in fection. Deconditioning -secondary to recent COVID. PT/OT eval done - recommending home with home health. Case mx following. Rest as above. Subjective Seen this AM, bar staff at bedside. He feels fine, no acute concerns. Pending placement: plan to go home. Denied any chest pain, SOB, palpitations, abdominal pain, nausea, vomiting, or diarrhea Review of Systems Review of Systems: as per hpi Physical Exam Constitutional: WD/WN, vitals as above Eyes: PERRL, conjunctivae normal, anicteric sclerae Neck: + torticollis Respiratory: normal respiratory effort, lungs clear to auscultation Cardiovascular: RRR, no murmur, no edema Gastrointestinal (Abdomen): normal bowel sounds, soft, nontender, no hepatosplenomegaly Results & Data Results & Data Vital Signs (Past 12 Hours) Vital Signs Pulse BP 03/04/24 08:39 58 L 119/64 Resident Activity Tracking Resident Involvement: Resident Care Provided Care Provided: Adult Hospital Medicine
[2024-03-04 15:28] VITALS: RESP 18
[2024-03-05 07:36] VITALS: BP 172/64; TEMP 98.2; O2SAT 95
--- NOTE | 2024-03-05 10:24 | Discharge Summary ---
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 Patient was most recently admitted to [facility] from 11/21-12/11/2023 for 4 acute metabolic encephalopathy secondary to likely aspiration pneumonia. He has been treated for 7-day course of IV Zosyn and vancomycin at that time after a positive MRSA screen. He was then transferred [place] [facility] [place]. He now is ready to go home with home services, and was brought into the emergency department by a local agency to try to coordinate and expedite transfer to home. The patient presently has no overall complaints, other than chronic lower extremity swelling, and occasional dizziness. Principal Diagnosis Dizziness Discharge Exam Constitutional WD/WN, vitals as above Eyes PERRL, conjunctivae normal, anicteric sclerae Neck + torticollis Respiratory normal respiratory effort, lungs clear to auscultation Cardiovascular RRR, no murmur, no edema Gastrointestinal (Abdomen) normal bowel sounds, soft, nontender, no hepatosplenomegaly Discharge Data Allergies Allergy/AdvReac Type Severity Reaction Status Date / Time No Known Allergies Allergy Verified 02/29/24 18:14 Consultations 02/29/24 19:43 ED Decision to Admit Stat Ordered Studies 02/29/24 15:47 CT head/brain wo con Stat Hospital Course (1) Decubitus ulcer of sacral area: (2) 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: (3) Sinusitis chronic, ethmoidal: (4) Sinusitis, maxillary, chronic: (5) Paroxysmal A-fib: (6) H/O: GI bleed: (7) Carotid stenosis: Plan The patient is a 88-year-old male with a past medical history including bilateral lower extremity edema, history of acute encephalopathy, paroxysmal atrial fibrillation, history of alcohol dependence, history of atrial fibrillation, hypothyroidism, vertebral artery stenosis,-year-old bowel syn drome, macular degeneration, and a left carotid artery stenosis here for placement #Dizziness- Likely secondary to maxillary/ethmoidal sinusitis and mild general debilitation azithromycin discontinue, no active infection this had improved #Paroxysmal atrial fibrillation/hypertension- Continue carvedilol, amlodipine No other anticoagulation likely secondary GI bleed 2021 #General deconditioning- Consult PT/OT Patient has been able [facility] and feels for for what was supposed to be short-term rehab Patient wish to go home. Caregivers from [employer] can provided 16/09 care. Need a close follow up with PCP for script #Chronic lymphedema bilateral lower extremities- As per the PT and OT, patient would likely benefit from lymphedema therapy to help prevent future issues with cellulitis and need for hospitalizations #COVID infection- Patient had symptoms several weeks ago COVID is still positive at this point He does not need active treatment No isolation needed #History of alcohol use disorder- No recent use Placed on thiamine 100 mg p.o. every morning and folic acid 1 mg p.o. every morning Hypomagnesemia- Magnesium 1.7 on admission Replaced #Skin Care- consult wound care FEN: [facility] Code status: DNR/DNI DVT ppx: Lovenox sq Dispo: med/surg Total Time Total Time Spent Total Time Spent (In Minutes): see attending documentation Discharge Plan Discharge Items Patient Disposition: Home - Home Health Services Reason For Visit: GENERAL DEBILITATION, HYPOMAGNESEMIA, SKIN CARE, C Discharge Diagnosis: FTT, dizziness secondary to sinusitis Activity: Per Instructions section Non-emergency contact: Primary Care Provider Call non-emergency contact if: you have any medication questions and your symptoms worsen Follow-up/Referrals: Nicolas Foreman MD [Primary Care Provider] - 03/10/24 10:00 am (Appointment will be with Aminah Cano) Diet: Heart Healthy Addtl Attending Provider Instructions: You were admitted to the hospital for dizziness and a change in your home living situation. You will be sent home today. It's very important that you follow with your PCP within the the next week. It will be beneficial for you in the future to continue with physical therapy and possibly lymphedema therapy. For this you need to be seen by your PCP and get a home health script. A discharge summary will be sent to your primary care physician to ensure continuity of care. Please bring this discharge summary with you to your next office appointment so that your provider can review it at that time. Medications: Your medication list has been reviewed and reconciled upon discharge to ensure accuracy and continuity of care. An updated list of all your medications is included with your hospital discharge paperwork. Please review this list closely and make note of any changes to your medications. - No changes to your meds were made. Follow up appointments: - Make a follow up appointment with your PCP within the next week. It is very important that you follow up with them shortly after discharge from the hospital. - Keep all of your follow up appointments as already scheduled. If you cannot make an appointment, notify your provider. CONTACT YOUR PRIMARY CARE PROVIDER if you experience any of the following: - Difficulty following your treatment plan - Difficulty taking any of your medications CALL 911 OR GO TO THE EMERGENCY DEPARTMENT if you experience any of the following: - Sudden, severe abdominal pain or nausea/vomiting - Severe chest pain or chest pain that radiates to your jaw or arm - Sudden, severe shortness of breath or difficulty breathing Pending Studies at Discharge: No Stand-Alone Forms: My [facility], Smoking Cessation Medications and DC Order Prescriptions: Continued acetaminophen 325 mg Tablet 650 mg PO BID acetaminophen 325 mg Tablet 650 mg PO .Q4H MDD 3000MG PRN (Reason: Fever Or Pain) Artificial Tears (cmc) 1 % Drops 2 drp OPB Q4H PRN (Reason: Dry Eye(S)) benzonatate 100 mg Capsule 100 mg PO Q8H PRN (Reason: Cough) bisacodyl 10 mg Suppository 10 mg SD DAILY PRN (Reason: Constipation) ipratropium-albuterol 0.5 mg-3 mg(2.5 mg base)/3 mL Solution For Nebulization 3 ml INHALATION Q4H PRN (Reason: Shortness Of Breath Or Wheezing) ferrous sulfate 325 mg (65 mg iron) Tablet,Delayed Release (Dr/Ec) 35 mg PO DAILY gabapentin 300 mg Capsule 300 mg PO HS escitalopram oxalate [Lexapro] 5 mg Tablet 5 mg PO QAM Minerin Creme Cream 1 applic TOPICAL BID Rx Instructions: APPLY TWICE DAILY TO BILATERAL LEGS guaifenesin [Mucinex] 600 mg Tablet Extended Release 12hr 600 mg PO .AM&HS sennosides-docusate sodium [Stimulant Laxative Plus] 8.6-50 mg Tablet 2 tab PO QPM tamsulosin 0.4 mg capsule 0.4 mg PO HS Saline Nasal 0.65 % Aerosol,[place] 1 spray INTRANASAL Q4H PRN (Reason: Dry Nasal Passages) carvedilol 6.25 mg Tablet 6.25 mg PO BIDM Qty: 60 0RF amlodipine [Norvasc] 5 mg Tablet 5 mg PO QAM Qty: 30 0RF pantoprazole 40 mg Tablet,Delayed Release (Dr/Ec) 40 mg PO QAM Qty: 30 0RF fluticasone propionate 50 mcg/actuation [place],Suspension 2 spray NA QAM Qty: 1 0RF melatonin 3 mg capsule 3 mg PO HS Qty: 30 0RF Discharge Orders: Discharge Order (Routine); Ordered 03/05/24 Ordered By: Sunday Nolasco/Other Patient Handouts: Preventing Deep Vein Thrombosis Admission Data Admit Date/Time: 02/29/24 19:56 Attending Provider: Munira Emery Admit Provider: Prasad Carrington Primary Care Provider: Nicolas Foreman Other Providers: Prasad Carrington; [facility]; [facility],Home Healthcare Other Interventions: Discharge Summary Assessment (RN) Last Done: 03/05/24 10:38 Supervising Physician Co-Signing Physician Notes I personally examined the patient and verified calderón points of history and exam, discussed case, and agree with decision making and plan documented by Dr. Patrick Sanchez. Stable for discharge home, patient was [facility] at [facility] prior to admission, he has 24-hour care at home, aids are present during exam. Patient appears comfortable, lungs clear b/l to auscultation, regular rate and rhythm, no acute distress. Would benefit from outpatient lymphedema therapy. Patient advised to follow-up closely with PCP for prescription of home health care, patient has not been seen by PCP in quite some time and this is required prior to prescription.
[2024-03-05 10:40] VITALS: PULSE 60
--- NOTE | 2024-03-08 07:35 | Coding Query ---
PRESSURE ULCER DOCUMENTATION To promote full compliance with coding requirements relating to patient care, physician participation is requested in all cases of braille coder uncertainty. Please assist us with the question(s) below: Please specify the known or suspected type by placing an "X" within the parenthesis (x). A pressure ulcer of the (BLEACH MIXER INSERT SITE) RIGHT LATERAL MEDIAL BUTTOCK; WOUND CARE CONSULTED If possible, please check the box that provides the specific stage of the pressure ulcer ( ) Stage I ( ) Stage II ( ) Stage III ( ) Stage IV ( ) Unstageable Was the pressure ulcer present on admission? Please check the appropriate box for the pressure ulcer: ( ) Present on admission ( ) Not present on admission ( X) Unable to be clinically determined Thank you SOSA Wolfe [facility]
== END 2024-03-05 13:56 | disposition home health service (06) ==
LOC: SUATTDRO → ED 15:16 → INTOOBSV 19:56 → EDINP 19:56 → SUATTDRO 19:56 → 3E 22:15